=== PATIENT | female | born 1960 | race Caucasian/White ===

== ENCOUNTER 2016-07-06 17:08 | Emergency (ER) | payer BC ==
[2016-07-06] MEDS ORDERED: ONDANSETRON 4 MG TAB.RAPDIS PO ONE (17:12)
--- NOTE | 2016-07-06 17:14 | ER Document Report ---
ED Medical Screen (RME) - General Stated Complaint: ABDOMINAL PAIN Notes: Patient complains of abdominal pain for 3 days, more localized to the right lower quadrant today. States she has vomited about 8 times today, no diarrhea. Denies dysuria, unsure if she's had a fever or not. Denies sick contacts. I have greeted and performed a rapid initial assessment of this patient. A comprehensive ED assessment and evaluation of the patient, analysis of test results and completion of the medical decision making process will be conducted by additional ED providers. TRAVEL OUTSIDE OF THE [place] IN LAST 30 DAYS: No - Related Data Allergies/Adverse Reactions: Penicillins Allergy (Unknown, Verified 07/06/16 17:11) cephalexin monohydrate [From Keflex] Allergy (Verified 07/06/16 17:11) ciprofloxacin [From Cipro] Allergy (Verified 07/06/16 17:11) Iodinated Contrast Media - Oral and [IV Dye, Iodine Containing] Allergy ( Verified 07/06/16 17:11) latex [Latex] Allergy (Verified 07/06/16 17:11) metformin Allergy (Verified 07/06/16 17:11) nitrofurantoin macrocrystalline [From Macrodantin] Allergy (Verified 07/06/16 17 :11) penicillin G Allergy (Verified 07/06/16 17:11) Sulfa (Sulfonamide Antibiotics) Allergy (Verified 07/06/16 17:11) tetracycline [Tetracycline] Allergy (Verified 07/06/16 17:11) nitroglycerin [From Nitrostat] Adverse Reaction (Verified 07/06/16 17:11) Past Medical History - Past Medical History Cardiac Medical History: Reports: Hx Hypercholesterolemia, Hx Hypertension Denies: Hx Coronary Artery Disease, Hx DVT, Hx Pulmonary Embolism Pulmonary Medical History: Reports: Hx Asthma Neurological Medical History: Reports: Hx Cerebrovascular Accident, Hx Migraine Endocrine Medical History: Reports: Hx Diabetes Mellitus Type 1, Hx Diabetes Mellitus Type 2. Denies: Hx Hyperthyroidism, Hx Hypothyroidism GI Medical History: Reports: Hx Gastroesophageal Reflux Disease. Denies: Hx Cirrhosis, Hx Hepatitis Musculoskeltal Medical History: Reports Hx Arthritis Psychiatric Medical History: Reports: Hx Anxiety, Hx Depression Infectious Medical History: Denies: Hx Hepatitis Past Surgical History: Reports: Hx Abdominal Surgery - hernia, Hx Section, Hx Cholecystectomy, Hx Hysterectomy - partial, Hx Orthopedic Surgery - bilateral toes and elbows, Hx Tubal Ligation. Denies: Hx Appendectomy - Immunizations Immunizations up to date: Yes Hx Diphtheria, Pertussis, Tetanus Vaccination: Yes
[2016-07-06 17:46] LABS: ABSOLUTE EOSINOPHILS # (AUTO) 0.2 10^3/uL (0.0-0.6); ABSOLUTE MONOCYTES (AUTO) 0.7 10^3/uL (0.1-1.4); ABSOLUTE NEUT (AUTO) 4.2 10^3/uL (1.7-8.2); BASOPHILS % (AUTO) 0.6 % (0-2); EOSINOPHILS % (AUTO) 2.9 % (0-6); HEMATOCRIT 44.1 % (36.0-47.0); HEMOGLOBIN 14.9 g/dL (12.0-15.5); HGB HCT DIFFERENCE 0.6; LYMPHOCYTES % (AUTO) 27.5 % (13-45); MEAN CORPUSCULAR HEMOGLOBIN 27.5 pg (27.0-33.4); MEAN CORPUSCULAR HGB CONC 33.8 g/dL (32.0-36.0); MEAN CORPUSCULAR VOLUME 82 fl (80-97); MONOCYTES % (AUTO) 9.4 % (3-13); RED BLOOD COUNT 5.42 10^6/uL (3.72-5.28); RED CELL DISTRIBUTION WIDTH 13.6 % (11.5-14.0); SEGMENTED NEUTROPHILS % (AUTO) 59.6 % (42-78); WHITE BLOOD COUNT 7.1 10^3/uL (4.0-10.5)
[2016-07-06 17:51] LABS: APPEARANCE,URINE CLEAR; BILIRUBIN,URINE NEGATIVE (NEGATIVE); GLUCOSE, URINE >=500 mg/dL (NEGATIVE); KETONES,URINE TRACE mg/dL (NEGATIVE); LEUKOCYTE ESTERASE,URINE TRACE (NEGATIVE); NITRITE,URINE NEGATIVE (NEGATIVE); PROTEIN,URINE NEGATIVE (NEGATIVE); URINE SPECIFIC GRAVITY 1.026; UROBILINOGEN,URINE NEGATIVE mg/dL (<2.0)
--- NOTE | 2016-07-06 17:57 | ER Document Report ---
ED GI/ - General Chief Complaint: Abdominal Pain Stated Complaint: ABDOMINAL PAIN Time seen by provider: 17:55 Mode of Arrival: Ambulatory Information source: Patient Notes: This is a 56-year-old female with a history of pancreatitis, diabetes with neuropathy, gastroparesis, asthma. Patient presents to the emergency room with nausea, vomiting, abdominal pain. Patient denies fevers. Patient denies vaginal discharge. Patient denies vaginal bleeding. Past surgical history: Cholecystectomy, pancreatic pseudocyst removal, hernia repair. TRAVEL OUTSIDE OF THE [place] IN LAST 30 DAYS: No - HPI Patient complains to provider of: Abdominal pain, Vomiting Onset: Just prior to arrival Timing/Duration: Gradual Quality of pain: Dull Severity at maximum: Mild Severity in ED: Mild Pain Level: Denies Location: Epigastric Vaginal bleeding (Compared to normal period): None Sexual history: Inactive Associated symptoms: Nausea, Vomiting. denies: Chest pain, Chills Exacerbated by: Denies Relieved by: Denies Similar symptoms previously: Yes Recently seen / treated by doctor: No - Related Data Allergies/Adverse Reactions: Penicillins Allergy (Unknown, Verified 07/06/16 17:11) cephalexin monohydrate [From Keflex] Allergy (Verified 07/06/16 17:11) ciprofloxacin [From Cipro] Allergy (Verified 07/06/16 17:11) Iodinated Contrast Media - Oral and [IV Dye, Iodine Containing] Allergy ( Verified 07/06/16 17:11) latex [Latex] Allergy (Verified 07/06/16 17:11) metformin Allergy (Verified 07/06/16 17:11) nitrofurantoin macrocrystalline [From Macrodantin] Allergy (Verified 07/06/16 17 :11) penicillin G Allergy (Verified 07/06/16 17:11) Sulfa (Sulfonamide Antibiotics) Allergy (Verified 07/06/16 17:11) tetracycline [Tetracycline] Allergy (Verified 07/06/16 17:11) nitroglycerin [From Nitrostat] Adverse Reaction (Verified 07/06/16 17:11) Past Medical History - General Information source: Patient - Social History Smoking Status: Current Every Day Smoker Cigarette use (# per day): Yes Chew tobacco use (# tins/day): No Frequency of alcohol use: None Drug Abuse: None Lives with: Family Family History: Reviewed & Not Pertinent Patient has suicidal ideation: No Patient has homicidal ideation: No - Past Medical History Cardiac Medical History: Reports: Hx Hypercholesterolemia, Hx Hypertension Denies: Hx Coronary Artery Disease, Hx DVT, Hx Pulmonary Embolism Pulmonary Medical History: Reports: Hx Asthma Neurological Medical History: Reports: Hx Cerebrovascular Accident, Hx Migraine Endocrine Medical History: Reports: Hx Diabetes Mellitus Type 1, Hx Diabetes Mellitus Type 2. Denies: Hx Hyperthyroidism, Hx Hypothyroidism Renal/ Medical History: Denies: Hx Peritoneal Dialysis GI Medical History: Reports: Hx Gastroesophageal Reflux Disease. Denies: Hx Cirrhosis, Hx Hepatitis Musculoskeltal Medical History: Reports Hx Arthritis Psychiatric Medical History: Reports: Hx Anxiety, Hx Depression Infectious Medical History: Denies: Hx Hepatitis Past Surgical History: Reports: Hx Abdominal Surgery - hernia, Hx Section, Hx Cholecystectomy, Hx Hysterectomy - partial, Hx Orthopedic Surgery - bilateral toes and elbows, Hx Tubal Ligation. Denies: Hx Appendectomy - Immunizations Immunizations up to date: Yes Hx Diphtheria, Pertussis, Tetanus Vaccination: Yes Review of Systems - Review of Systems Notes: Review of systems: Constitutional: Denies fever, chills. EENT: Denies ear pain, sinus tenderness, throat pain, throat swelling. Cardiovascular: Denies chest pain, palpitations, dyspnea or edema. Respiratory: Denies wheezing, cough, hemoptysis. Abdomen: Positive for nausea, vomiting, abdominal pain. Denies BRBPR or melena. Genitourinary: Denies dysuria, pyuria, hematuria, flank pain. Musculoskeletal: denies joint pain or swelling, denies back pain. Neurologic: Denies headache, photophobia, neck stiffness, weakness. Denies loss of bowel or bladder function. Denies saddle anesthesia. Skin: Denies rash, lesions. Physical Exam - Vital signs Vitals: Temp Pulse Resp BP Pulse Ox 97.5 F 94 20 143/77 H 96 07/06/16 18:00 07/06/16 18:00 07/06/16 18:00 07/06/16 18:00 07/06/16 18:00 Notes: Physical exam: GENERAL: 56-year-old female, alert and oriented 3, no acute distress HEAD: Atraumatic, normocephalic. EYES: Pupils equal round and reactive to light, extraocular movements intact, sclera anicteric, conjunctiva are normal. ENT: TMs normal, nares patent, oropharynx clear without exudates. Moist mucous membranes. NECK: Normal range of motion, supple without lymphadenopathy or JVD. LUNGS: Breath sounds clear to auscultation bilaterally and equal. No wheezes rales or rhonchi. HEART: Regular rate and rhythm without murmurs, rubs or gallops. ABDOMEN: Soft, normoactive bowel sounds. Mild tenderness to palpation in the lower quadrants. No guarding, no rebound. No masses appreciated. EXTREMITIES: Normal range of motion, no pitting or edema. No clubbing or cyanosis. NEUROLOGICAL: Cranial nerves II through XII grossly intact. Normal speech, normal gait. PSYCH: Normal mood, normal affect. SKIN: Warm, Dry, normal turgor, no rashes or lesions noted. Course - Re-evaluation Re-evalutation: 07/07/16 00:18 Patient was treated with IV fluids, IV pain medicine, IV antiemetics. She is observed for several hours. CT of the abdomen shows no acute process. Patient was symptomatically better. I've advised her to follow-up with her primary care doctor for reassessment. Her sugar was initially elevated without a significant anion gap. The patient was treated with IV insulin as well as the IV fluids mentioned and the sugar improved. 07/07/16 00:18 - Vital Signs Vital signs: Temp Pulse Resp BP Pulse Ox 98.4 F 99 20 124/68 99 07/06/16 23:39 07/06/16 23:39 07/06/16 23:39 07/06/16 23:39 07/06/16 23:39 - Laboratory Result Diagrams: 07/06/16 17:26 07/06/16 17:26 Laboratory results interpreted by me: 07/06/16 07/06/16 07/06/16 17:26 17:26 17:26 RBC 5.42 H Sodium 135.5 L Chloride 94 L Glucose 509 H* POC Glucose Calcium 10.4 H Urine Glucose (UA) >=500 H Urine Ketones TRACE H Ur Leukocyte Esterase TRACE H 07/06/16 19:45 RBC Sodium Chloride Glucose POC Glucose 248 H Calcium Urine Glucose (UA) Urine Ketones Ur Leukocyte Esterase - Diagnostic Test Radiology reviewed: Image reviewed, Reports reviewed - CT of the abdomen shows no acute intra-abdominal process Discharge - Discharge Clinical Impression: diarrhea, abdominal pain Condition: Stable Disposition: HOME, SELF-CARE Instructions: Abdominal Pain ([facility]) Additional Instructions: Please note: Many disease processes evolve over time and the ER visit offers only a brief assessment. This is why it is important that you: 1. Follow-up with your doctor in the next 48 hours to be reevaluated. 2. If unable to see a physician in the next 48 hours, return to the ER for reevaluation. 3. Return to the ER at once if your symptoms worsen or you are unable to tolerate fluids, if the pain becomes localized to the right lower side of the abdomen, or any concerns you are getting worse. When you call your physician's office, tell them you were evaluated in the ER for abdominal pain and the ER physician recommended you seen in the office in the next 48 hours for reevaluation. Bring a copy of today's labs/urine analysis /imaging reports with you when you see your physician. If you are unable to get an appointment with your doctor in this time frame, return to the ER for evaluation. In the meantime, rest, drink plenty of fluids and advance her diet as tolerated. Take nausea medicines and pain medicines as needed. Prescriptions: Oxycodone HCl 5 mg PO Q6HP PRN #25 tablet PRN Reason: Ondansetron HCl [Zofran 4 mg Tablet] 1 - 2 tab PO Q4H PRN #10 tablet PRN Reason: Forms: Return to Work Referrals: GINETTE ENGLE MD [Primary Care Provider] - 07/08/16
[2016-07-06] MEDS ORDERED: ONDANSETRON HCL INJ/PF 4 MG/2 ML SDV IV ONE ×2 (18:02→21:42)
[2016-07-06] MEDS ORDERED: MORPHINE SULFATE 10 MG/ML INJ IV PRN ×3 (18:02→21:42)
[2016-07-06 18:06] LABS: ALANINE AMINOTRANSFERASE 33 U/L (9-52); ALBUMIN 4.9 g/dL (3.5-5.0); ALKALINE PHOSPHATASE 106 U/L (38-126); ANION GAP 13 (5-19); ASPARTATE AMINO TRANSFERASE 16 U/L (14-36); BILIRUBIN,TOTAL 0.9 mg/dL (0.2-1.3); BLOOD UREA NITROGEN 13 mg/dL (7-20); CALCIUM 10.4 mg/dL (8.4-10.2); CARBON DIOXIDE 29 mmol/L (22-30); CHLORIDE 94 mmol/L (98-107); CREATININE RESULT 0.59 mg/dL (0.52-1.25); POTASSIUM 4.2 mmol/L (3.6-5.0); SODIUM 135.5 mmol/L (137-145); TOTAL PROTEIN 7.4 g/dL (6.3-8.2)
[2016-07-06] MEDS: NORMAL SALINE 1000 ML 1,000 ML IV PRN ×2 (18:11→18:25)
[2016-07-06 18:14] LABS: GLUCOSE 509 mg/dL (75-110)
[2016-07-06] MEDS ORDERED: INSULIN REG, HUMAN 100 UNIT/ML 3 ML VIAL (PYX) IV ONE (18:16)
[2016-07-06] MEDS ORDERED: NORMAL SALINE 1000 ML 1,000 ML IV PRN (19:46)
[2016-07-06] MEDS ORDERED: ONDANSETRON ODT 4 MG TAB (6 TAB/DSPK) PO PRN (23:43)
[2016-07-06] MEDS ORDERED: HYDROCODONE/ACETAMINOPHEN 5-325 MG 6 TAB/DSPK PO PRN (23:44)
[2016-07-06 23:54] VITALS: BP 124/68
== END 2016-07-06 23:39 | disposition home or self-care (01) ==
LOC: ER 17:08
DX: E11.43 Type 2 diabetes mellitus with diabetic autonomic (poly)neuropathy (principal); K31.84 Gastroparesis; E11.40 Type 2 diabetes mellitus with diabetic neuropathy, unspecified; R10.13 Epigastric pain; R10.814 Left lower quadrant abdominal tenderness; R10.813 Right lower quadrant abdominal tenderness; R19.7 Diarrhea, unspecified; R11.2 Nausea with vomiting, unspecified; I10 Essential (primary) hypertension; J45.909 Unspecified asthma, uncomplicated; F17.210 Nicotine dependence, cigarettes, uncomplicated; Z90.49 Acquired absence of other specified parts of digestive tract; Z88.0 Allergy status to penicillin; Z88.1 Allergy status to other antibiotic agents; Z91.041 Radiographic dye allergy status; Z91.040 Latex allergy status; Z88.8 Allergy status to other drugs, medicaments and biological substances; Z88.2 Allergy status to sulfonamides; Z86.73 Personal history of transient ischemic attack (TIA), and cerebral infarction without residual deficits; Z87.19 Personal history of other diseases of the digestive system; Z90.711 Acquired absence of uterus with remaining cervical stump
CPT/HCPCS: 96376; 99284; 96361; 96374; 96375; 36415; 82962; 83690; 85025; 80053; 81001; 74176; S0119; J2270; J1815; J2405; J7030

== ENCOUNTER 2016-08-31 15:19 | Emergency (ER) | payer BC ==
[2016-08-31 15:50] VITALS: BP 140/98
--- NOTE | 2016-08-31 16:11 | ER Document Report ---
ED Extremity Problem, Lower - General Chief Complaint: Knee Pain Stated Complaint: LEG PAIN Time seen by provider: 16:06 Mode of Arrival: Medic Information source: Patient Notes: 56-year-old female presents to ED for pain to her right knee and miguel and foot after falling downstairs for stairs hitting her miguel and knee on each step. She has an abrasion from her knee down to her foot with swelling to all. He was brought in by EMS and was given 50 g of fentanyl IV. TRAVEL OUTSIDE OF THE [place] IN LAST 30 DAYS: No - HPI Patient complains to provider of: Injury, Pain, Swelling Location: Knee, Leg Occurred: This afternoon Where: Outdoors Onset/Duration: Sudden, Constant Quality of pain: Burning, Sharp Severity: Severe Pain Level: 5 Context: Fell Recent injury: Yes Associated symptoms: Painful ambulation Exacerbated by: Hanging down, Movement, Walking Relieved by: Elevation, Ice, Rest - Related Data Allergies/Adverse Reactions: Penicillins Allergy (Unknown, Verified 08/31/16 15:46) cephalexin monohydrate [From Keflex] Allergy (Verified 08/31/16 15:46) ciprofloxacin [From Cipro] Allergy (Verified 08/31/16 15:46) Iodinated Contrast Media - Oral and [IV Dye, Iodine Containing] Allergy ( Verified 08/31/16 15:46) latex [Latex] Allergy (Verified 08/31/16 15:46) metformin Allergy (Verified 08/31/16 15:46) nitrofurantoin macrocrystalline [From Macrodantin] Allergy (Verified 08/31/16 15 :46) penicillin G Allergy (Verified 08/31/16 15:46) Sulfa (Sulfonamide Antibiotics) Allergy (Verified 08/31/16 15:46) tetracycline [Tetracycline] Allergy (Verified 08/31/16 15:46) nitroglycerin [From Nitrostat] Adverse Reaction (Verified 08/31/16 15:46) Past Medical History - General Information source: Patient - Social History Smoking Status: Former Smoker Cigarette use (# per day): No Chew tobacco use (# tins/day): No Smoking Education Provided: No Frequency of alcohol use: None Drug Abuse: None Occupation: [employer] Lives with: Family Family History: Arthritis, CVA, DM, Hyperlipidemia, Hypertension, Malignancy, Thyroid Disfunction Patient has suicidal ideation: No Patient has homicidal ideation: No - Past Medical History Cardiac Medical History: Reports: Hx Hypercholesterolemia, Hx Hypertension Pulmonary Medical History: Reports: Hx Asthma EENT Medical History: Reports: None Neurological Medical History: Reports: Hx Cerebrovascular Accident, Hx Migraine Endocrine Medical History: Reports: Hx Diabetes Mellitus Type 1 Malignancy Medical History: Reports: Hx Cervical Cancer GI Medical History: Reports: Hx Gastroesophageal Reflux Disease Musculoskeltal Medical History: Reports Hx Arthritis, Reports Hx Musculoskeletal Deformity, Reports Hx Musculoskeletal Trauma Skin Medical History: Reports None Psychiatric Medical History: Reports: Hx Anxiety, Hx Depression Traumatic Medical History: Reports: Hx Fractures - Facial fractures Infectious Medical History: Reports: None Past Surgical History: Reports: Hx Abdominal Surgery - hernia, Hx Section - 2, Hx Cholecystectomy, Hx Hysterectomy - partial, Hx Orthopedic Surgery - bilateral toes and elbows left knee twice, Hx Tubal Ligation, Other - Ventral hernia and pseudocyst removal - Immunizations Immunizations up to date: Yes Hx Diphtheria, Pertussis, Tetanus Vaccination: Yes Review of Systems - Review of Systems Constitutional: No symptoms reported EENT: No symptoms reported Cardiovascular: No symptoms reported Respiratory: No symptoms reported Gastrointestinal: No symptoms reported Genitourinary: No symptoms reported Female Genitourinary: No symptoms reported Musculoskeletal: Other - Knee ankle and foot pain lower leg pain Skin: Other - Abrasions from right knee down to her right toes Hematologic/Lymphatic: No symptoms reported Neurological/Psychological: No symptoms reported Physical Exam - Vital signs Vitals: Temp Pulse Resp BP Pulse Ox 98.3 F 82 16 140/98 H 97 08/31/16 15:41 08/31/16 15:41 08/31/16 15:41 08/31/16 15:41 08/31/16 15:41 Interpretation: Normal - General General appearance: Appears well, Alert - HEENT Head: Normocephalic, Atraumatic Eyes: Normal Pupils: PERRL - Respiratory Respiratory status: No respiratory distress Chest status: Nontender Breath sounds: Normal Chest palpation: Normal - Cardiovascular Rhythm: Regular Heart sounds: Normal auscultation Murmur: No - Abdominal Inspection: Normal Distension: No distension Bowel sounds: Normal Tenderness: Nontender Organomegaly: No organomegaly - Back Back: Normal, Nontender - Extremities General upper extremity: Normal inspection, Nontender, Normal color, Normal ROM , Normal temperature General lower extremity: Normal temperature Knee: Tender, Abrasion, Ecchymosis, Pain with ROM, Patellar tendon intact, Tender joint line, Unable to bear weight. No: Deformity, Dislocation, Drawer's test instability, Instability, Joint effusion, Laceration, Laxity with valgus stress, Laxity with varus stress, Popliteal fossa tender Calf: Tender - Front, Abrasion - Front, Ecchymosis. No: Instability, Laceration , Unable to bear weight, Other Ankle: Tender, Abrasion Foot: Tender, Abrasion - Neurological Neuro grossly intact: Yes Cognition: Normal Orientation: AAOx4 [place] Coma Scale Eye Opening: Spontaneous [place] Coma Scale Verbal: Oriented [place] Coma Scale Motor: Obeys Commands [place] Coma Scale Total: 15 Speech: Normal Motor strength normal: LUE, RUE, LLE, RLE Sensory: Normal - Psychological Associated symptoms: Normal affect, Normal mood - Skin Skin Temperature: Warm Skin Moisture: Dry Skin Color: Normal Course - Re-evaluation Re-evalutation: 08/31/16 17:00 Discussed x-rays with patient and family. All dressings cleaned and bacitracin applied Telfa pads applied and ankle leg and knee wrapped in Victor Manuel wrap for support. Patient given crutches for walking. Patient sent home with prescription for Percocet - Vital Signs Vital signs: Temp Pulse Resp BP Pulse Ox 98.3 F 82 16 140/98 H 97 08/31/16 16:35 08/31/16 16:35 08/31/16 16:35 08/31/16 16:35 08/31/16 16:35 - Diagnostic Test Radiology reviewed: Image reviewed, Reports reviewed Discharge - Discharge Clinical Impression: contusion to left leg, knee, and foot, abrasion left foot ankle leg and knee Condition: Stable Disposition: HOME, SELF-CARE Instructions: Family Physicians / Practices Additional Instructions: CONTUSION: Your injury has resulted in a contusion -- a crushing of the deep tissues. No injury to important structures was detected during the physician's exam. Contusions vary in the amount of pain they cause, and in the length of time required for healing. Typically, the area will become bruised, and will remain painful to touch for two or three weeks. However, most patients are back to working and playing within a few days. After the initial period of rest and cold-packs, your symptoms (together with the doctor's recommendations) will determine how rapidly you can get back to full activity. Usually this means "do what feels okay, but don't do things that hurt." If re-examination was recommended, it's important to follow up as instructed. Call the doctor or return any time if pain increases, if swelling becomes severe, if you develop numbness or weakness in an injured extremity, or if any other alarming symptoms occur. ABRASIONS: An abrasion is a scraping injury of the skin. Some scarring may result. The seriousness of an abrasion is not always obvious at first. Hidden tissue damage may be present and infection may occur despite proper care. Complete healing may take from ten days to as long as a month. The healing time depends on the depth of the abrasion, and on the amount of crushing of underlying tissues from the injury. Keep the wound and dressing clean. Do not shower or bathe the area until okayed by the doctor. If the dressing gets wet, remove it and blot the wound dry, then reapply a clean dressing. Dressings should be changed every day. Sunscreen should be used for six months after the skin is healed. If any signs of infection occur (swelling, redness, increasing tenderness, red streaks, profuse purulent drainage from the abrasion, tender lumps in the armpit or groin above the abrasion, or fever), see the doctor immediately. SOAP CLEANSING: Gently wash the wound daily using a mild soap (like Ivory, Phisoderm, Neutrogena). Use warm water, rubbing gently until all debris, ooze, and crusting have been washed from the wound. Allow to dry briefly (about 10 minutes) after cleaning. Repeat this cleansing at least three times a day for the first two days and then once or twice a day. ANTIBIOTIC OINTMENT PROTECTION: Your wounds are such that dressing them is not practical or optional. After cleansing, you should apply a thin coating of antibiotic ointment ( Bacitracin, not Neosporin) to the wounds at least three times daily. This lessens infection risk, and may decrease the amount of scarring. Use a q-tip or dull butter knife, not your finger, to apply this ointment. Any debris or ooze which builds up in the ointment should be gently rubbed off with a sterile gauze pad. Harder crusting may need to be gently scrubbed off with a clean wash cloth with soap and warm water, perhaps applying a warm, wet wash cloth to the wound for ten minutes first. Development of redness, severe itching, or blistering may mean allergy to the ointment. See the doctor. ORAL NARCOTIC MEDICATION: You have been given a prescription for pain control. This medication is a narcotic. It's best taken with food, as nausea can result if taken on an empty stomach. Don't operate machinery or drive within six hours of taking this medication. Do not combine this medicine with alcohol, or with any medication which can cause sedation (such as cold tablets or sleeping pills) unless you get permission from the physician. Narcotics tend to cause constipation. If possible, drink plenty of fluids and eat a diet high in fiber and fruits. USE OF TYLENOL (ACETAMINOPHEN): Acetaminophen may be taken for pain relief or fever control. It's much safer than aspirin, offering a wider range of "safe" dosages. It is safe during . Some brand names are Tylenol, Panadol, Datril, Anacin 3, Tempra, and Liquiprin. Acetaminophen can be repeated every four hours. The following are maximum recommended dosages: WEIGHT Dose Drops Elixir Chewable( 80mg) (LBS.) drprs=droppers tsp=teaspoon 6 40 mg 0.4 ml (1/2) 6-11 80 mg 0.8 ml (full) tsp 1 tab 12-16 120 mg 1 1/2 drprs 3/4 tsp 1 1/2 tabs 17-23 160 mg 2 drprs 1 tsp 2 tabs 24-30 240 mg 3 drprs 1 1/2 tsp 3 tabs 30-35 320 mg 2 tsp 4 tabs 36-41 360 mg 2 1/4 tsp 4 1/2 tabs 42-47 400 mg 2 1/2 tsp 5 tabs 48-53 480 mg 3 tsp 6 tabs 54-59 520 mg 3 1/4 tsp 6 1/2 tabs 60-64 560 mg 3 1/2 tsp 7 tabs 65-70 600 mg 3 3/4 tsp 7 1/2 tabs 71-76 640 mg 4 tsp 8 tabs 77-82 720 mg 4 1/2 tsp 9 tabs 83-88 800 mg 5 tsp 10 tabs >89 pounds or adults 650 mg to 900 mg Acetaminophen can be repeated every four hours. Maximum dose not to exceed 4000 mg a day. These maximum recommended dosages are slightly higher than the dosages written on the product container, but these dosages are very safe and below the toxic dosage for acetaminophen. ICE PACKS: Apply ice packs frequently against the painful area. Many different schedules are recommended, such as "20 minutes on, 20 minutes off" or "one hour ice, two hours rest." If you need to work, you may need to go longer between ice treatments. You should plan to have the area ice packed AT LEAST one fourth of the time. The ice should be applied over the wrap, tape, or splint, or over a layer of cloth -- not directly against the skin. Some ice bags have a built-in cloth FOLLOW-UP CARE: If you have been referred to a physician for follow-up care, call the physician s office for an appointment as you were instructed or within the next two days. If you experience worsening or a significant change in your symptoms, notify the physician immediately or return to the Emergency Department at any time for re-evaluation. Prescriptions: Oxycodone HCl/Acetaminophen [Percocet 5-325 mg Tablet] 1 tab PO Q6HP PRN #15 tab PRN Reason: Forms: Elevated Blood Pressure, Return to Work
[2016-08-31] MEDS ORDERED: OXYCODONE-ACETAMINOPHEN 5-325 MG TABLET PO ONE (17:01)
== END 2016-08-31 17:40 | disposition home or self-care (01) ==
LOC: ER 15:19
DX: M25.561 Pain in right knee (principal); S80.01XA Contusion of right knee, initial encounter; S90.01XA Contusion of right ankle, initial encounter; S90.31XA Contusion of right foot, initial encounter; W10.9XXA Fall (on) (from) unspecified stairs and steps, initial encounter; M79.661 Pain in right lower leg; M79.671 Pain in right foot; I10 Essential (primary) hypertension; E10.9 Type 1 diabetes mellitus without complications; J45.909 Unspecified asthma, uncomplicated; Z88.0 Allergy status to penicillin; Z88.1 Allergy status to other antibiotic agents; Z91.041 Radiographic dye allergy status; Z91.040 Latex allergy status; Z88.8 Allergy status to other drugs, medicaments and biological substances; Z88.2 Allergy status to sulfonamides; Z87.891 Personal history of nicotine dependence; Z85.41 Personal history of malignant neoplasm of cervix uteri
CPT/HCPCS: 99284

== ENCOUNTER 2016-10-08 19:27 | Emergency (ER) | payer BC ==
[2016-10-08] MEDS ORDERED: ONDANSETRON HCL INJ/PF 4 MG/2 ML SDV IV ONE (21:18)
[2016-10-08] MEDS ORDERED: MORPHINE SULFATE 10 MG/ML INJ IV PRN ×2 (21:33→23:20)
[2016-10-08] MEDS ORDERED: NORMAL SALINE 1000 ML 1,000 ML IV ONE (21:33)
--- NOTE | 2016-10-08 22:12 | ER Document Report ---
ED General - General Chief Complaint: Nausea/Vomiting/Diarrhea Stated Complaint: VOMITING,DIARRHEA Time Seen by Provider: 10/08/16 21:30 Notes: Patient is a 56-year-old female with past medical history chronic recurrent pancreatitis, diabetes with insulin dependence, gastroparesis, a surgical history of a prior cholecystectomy, ventral hernia repair who presents with 24 hours of epigastric abdominal pain. She does describe this pain as a constant, stabbing, sharp pain. She is uncertain of what makes her symptoms better or worse. States this feels similar to what she's had pancreatitis in the past. Notes that she's had vomiting and had difficulty starting oral intake today. She has not seen her primary doctor regarding today's concerns. She denies abdominal location of the epigastrium, hemoptysis, melena or hematochezia. No chest pain or shortness of breath. TRAVEL OUTSIDE OF THE [place] IN LAST 30 DAYS: No - Related Data Allergies/Adverse Reactions: Penicillins Allergy (Unknown, Verified 08/31/16 15:46) cephalexin monohydrate [From Keflex] Allergy (Verified 08/31/16 15:46) ciprofloxacin [From Cipro] Allergy (Verified 08/31/16 15:46) Iodinated Contrast Media - Oral and [IV Dye, Iodine Containing] Allergy ( Verified 08/31/16 15:46) latex [Latex] Allergy (Verified 08/31/16 15:46) metformin Allergy (Verified 08/31/16 15:46) nitrofurantoin macrocrystalline [From Macrodantin] Allergy (Verified 08/31/16 15 :46) penicillin G Allergy (Verified 08/31/16 15:46) Sulfa (Sulfonamide Antibiotics) Allergy (Verified 08/31/16 15:46) tetracycline [Tetracycline] Allergy (Verified 08/31/16 15:46) nitroglycerin [From Nitrostat] Adverse Reaction (Verified 08/31/16 15:46) Past Medical History - General Information source: Patient - Social History Smoking Status: Never Smoker Frequency of alcohol use: None Drug Abuse: None Lives with: Family Family History: Arthritis, CVA, DM, Hyperlipidemia, Hypertension, Malignancy, Thyroid Disfunction - Past Medical History Cardiac Medical History: Reports: Hx Hypercholesterolemia, Hx Hypertension Pulmonary Medical History: Reports: Hx Asthma Neurological Medical History: Reports: Hx Cerebrovascular Accident, Hx Migraine Endocrine Medical History: Reports: Hx Diabetes Mellitus Type 1. Denies: Hx Hyperthyroidism, Hx Hypothyroidism Renal/ Medical History: Denies: Hx Peritoneal Dialysis Malignancy Medical History: Reports: Hx Cervical Cancer GI Medical History: Reports: Hx Gastroesophageal Reflux Disease. Denies: Hx Cirrhosis, Hx Hepatitis Musculoskeltal Medical History: Reports Hx Arthritis, Reports Hx Musculoskeletal Deformity, Reports Hx Musculoskeletal Trauma Psychiatric Medical History: Reports: Hx Anxiety, Hx Depression Traumatic Medical History: Reports: Hx Fractures - Facial fractures Infectious Medical History: Denies: Hx Hepatitis Past Surgical History: Reports: Hx Abdominal Surgery - hernia, Hx Section - 2, Hx Cholecystectomy, Hx Hysterectomy - partial, Hx Orthopedic Surgery - bilateral toes and elbows left knee twice, Hx Tubal Ligation, Other - Ventral hernia and pseudocyst removal. Denies: Hx Appendectomy - Immunizations Immunizations up to date: Yes Hx Diphtheria, Pertussis, Tetanus Vaccination: Yes Review of Systems - Review of Systems Notes: Constitutional: Negative for fever. HENT: Negative for sore throat. Eyes: Negative for visual changes. Cardiovascular: Negative for chest pain. Respiratory: Negative for shortness of breath. Gastrointestinal: Positive for abdominal pain and vomiting Genitourinary: Negative for dysuria. Musculoskeletal: Negative for back pain. Skin: Negative for rash. Neurological: Negative for headaches, weakness or numbness. 10 point ROS negative except as marked above and in HPI. Physical Exam - Vital signs Vitals: Temp Pulse Resp BP Pulse Ox 97.6 F 114 H 16 124/80 97 10/08/16 19:41 10/08/16 19:41 10/08/16 19:41 10/08/16 19:41 10/08/16 19:41 Interpretation: Tachycardic Notes: PHYSICAL EXAMINATION: GENERAL: Well-appearing, well-nourished and in no acute distress. HEAD: Atraumatic, normocephalic. EYES: Pupils equal round and reactive to light, extraocular movements intact, sclera anicteric, conjunctiva are normal. ENT: nares patent, oropharynx clear without exudates. Moist mucous membranes. NECK: Normal range of motion, supple without lymphadenopathy LUNGS: Breath sounds clear to auscultation bilaterally and equal. No wheezes rales or rhonchi. HEART: Regular rate and rhythm without murmurs ABDOMEN: Soft, focal epigastric tenderness to palpation, otherwise no focal tenderness, normoactive bowel sounds. No guarding, no rebound. No masses appreciated. EXTREMITIES: Normal range of motion, no pitting or edema. No cyanosis. NEUROLOGICAL: No focal neurological deficits. Moves all extremities spontaneously and on command. PSYCH: Normal mood, normal affect. SKIN: Warm, Dry, normal turgor, no rashes or lesions noted. Course - Re-evaluation Re-evalutation: 10/08/16 22:11 Patient presents with focal epigastric abdominal pain with associated nausea and vomiting consistent with a possible acute pancreatitis. Patient has a history of recurrent idiopathic pancreatitis. She does appear dehydrated on exam but otherwise nontoxic in appearance. Her vitals show tachycardia consistent with her persistent vomiting as well as pain. She has no focal tenderness outside of the epigastrium. She is already status post cholecystectomy. Of note, patient has had 4 CT scans of her abdomen and pelvis in the last one year all of which have shown pancreatic inflammation but no other additional findings. I do not believe there is no indication for CT the abdomen and pelvis at this time. Will proceed with labs, pain control and reassess 10/08/16 00:18 Labs without evidence of an acute pancreatitis. She is hyperglycemic without evidence of DKA or HHS. Symptoms are improving at this time after fluids, IV antiemetics and pain control. She has tolerated oral fluids without difficulty or further episodes of vomiting. Her blood sugar has improved after receiving insulin. At this time I believe it is safe for her to be discharged home and did not suspect an acute life-threatening pathology. At this time will discharge with return precautions and follow-up recommendations. Verbal discharge instructions given a the bedside and opportunity for questions given. Medication warnings reviewed. Patient is in agreement with this plan and has verbalized understanding of return precautions and the need for primary care follow-up in the next 24-72 hours. - Vital Signs Vital signs: Temp Pulse Resp BP Pulse Ox 97.6 F 114 H 16 124/80 97 10/08/16 19:41 10/08/16 19:41 10/08/16 19:41 10/08/16 19:41 10/08/16 19:41 - Laboratory Result Diagrams: 10/08/16 22:25 10/08/16 22:25 Laboratory results interpreted by me: 10/08/16 10/08/16 22:25 22:25 RBC 5.77 H Hgb 15.8 H Sodium 134.3 L Chloride 92 L Glucose 512 H* Discharge - Discharge Clinical Impression: Gastroparesis Abdominal pain Qualifiers: Abdominal location: unspecified location Qualified Code(s): R10.9 - Unspecified abdominal pain Nausea & vomiting Qualifiers: Vomiting type: unspecified Vomiting Intractability: non-intractable Qualified Code(s): R11.2 - Nausea with vomiting, unspecified Condition: Stable Disposition: HOME, SELF-CARE Additional Instructions: You have been seen in the Emergency Department (ED) for abdominal pain. Your evaluation did not identify a clear cause of your symptoms but was generally reassuring. Please follow up with your doctor as soon as possible regarding today's emergent visit and the symptoms that are bothering you. Return to the ED if your abdominal pain worsens or fails to improve, you develop bloody vomiting, bloody diarrhea, you are unable to tolerate fluids due to vomiting, fever greater than 101, or other symptoms that concern you. Prescriptions: Morphine Sulfate [Morphine Ir 15 mg Tablet] 15 mg PO Q4HP PRN #12 tablet PRN Reason: Ondansetron [Zofran Odt 4 mg Tablet] 1 - 2 tab PO Q4H PRN #15 tab.rapdis PRN Reason: For Nausea/Vomiting
[2016-10-08 22:36] LABS: ABSOLUTE EOSINOPHILS # (AUTO) 0.1 10^3/uL (0.0-0.6); ABSOLUTE LYMPHOCYTES (AUTO) 2.5 10^3/uL (0.5-4.7); ABSOLUTE MONOCYTES (AUTO) 0.7 10^3/uL (0.1-1.4); ABSOLUTE NEUT (AUTO) 4.5 10^3/uL (1.7-8.2); BASOPHILS % (AUTO) 0.6 % (0-2); EOSINOPHILS % (AUTO) 1.7 % (0-6); HEMATOCRIT 46.9 % (36.0-47.0); HEMOGLOBIN 15.8 g/dL (12.0-15.5); HGB HCT DIFFERENCE 0.5; MEAN CORPUSCULAR HEMOGLOBIN 27.3 pg (27.0-33.4); MEAN CORPUSCULAR HGB CONC 33.6 g/dL (32.0-36.0); MEAN CORPUSCULAR VOLUME 81 fl (80-97); RED BLOOD COUNT 5.77 10^6/uL (3.72-5.28); RED CELL DISTRIBUTION WIDTH 13.8 % (11.5-14.0); SEGMENTED NEUTROPHILS % (AUTO) 56.7 % (42-78); WHITE BLOOD COUNT 7.9 10^3/uL (4.0-10.5)
[2016-10-08 22:51] LABS: ALANINE AMINOTRANSFERASE 35 U/L (9-52); ALBUMIN 4.7 g/dL (3.5-5.0); ALKALINE PHOSPHATASE 96 U/L (38-126); ANION GAP 13 (5-19); ASPARTATE AMINO TRANSFERASE 17 U/L (14-36); BILIRUBIN,DIRECT 0.3 mg/dL (0.0-0.4); BILIRUBIN,TOTAL 0.7 mg/dL (0.2-1.3); BLOOD UREA NITROGEN 16 mg/dL (7-20); CALCIUM 10.2 mg/dL (8.4-10.2); CARBON DIOXIDE 29 mmol/L (22-30); CHLORIDE 92 mmol/L (98-107); CREATININE RESULT 0.61 mg/dL (0.52-1.25); LIPASE 123.9 U/L (23-300); POTASSIUM 4.6 mmol/L (3.6-5.0); SODIUM 134.3 mmol/L (137-145); TOTAL PROTEIN 7.5 g/dL (6.3-8.2)
[2016-10-08 22:59] LABS: GLUCOSE 512 mg/dL (75-110)
[2016-10-08] MEDS ORDERED: INSULIN REG, HUMAN 100 UNIT/ML 3 ML VIAL (PYX) IV ONE (23:17)
[2016-10-08] MEDS ORDERED: METOCLOPRAMIDE HCL INJ/PF 10 MG/2 ML SDV IV ONE (23:18)
[2016-10-08] MEDS ORDERED: KETOROLAC TROMETHAMINE INJ/PF 30 MG/1 ML SDV IV ONE (23:20)
[2016-10-08 23:26] LABS: VENOUS BLOOD BASE EXCESS 2.3 mmol/L; VENOUS BLOOD PCO2 52.7 mmHg (35-63); VENOUS BLOOD PH 7.36 (7.30-7.42)
[2016-10-09 05:40] VITALS: BP 115/55
== END 2016-10-09 05:32 | disposition home or self-care (01) ==
LOC: ER 19:27
DX: E10.43 Type 1 diabetes mellitus with diabetic autonomic (poly)neuropathy (principal); K31.84 Gastroparesis; Z79.4 Long term (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 of insulin; R11.2 Nausea with vomiting, unspecified; R10.13 Epigastric pain; E78.00 Pure hypercholesterolemia, unspecified; I10 Essential (primary) hypertension; Z86.73 Personal history of transient ischemic attack (TIA), and cerebral infarction without residual deficits; Z85.41 Personal history of malignant neoplasm of cervix uteri; Z90.49 Acquired absence of other specified parts of digestive tract; Z90.712 Acquired absence of cervix with remaining uterus; Z88.0 Allergy status to penicillin; Z88.3 Allergy status to other anti-infective agents; Z91.040 Latex allergy status; Z88.2 Allergy status to sulfonamides
CPT/HCPCS: 96376; 99284; 96361; 96374; 96375; 36415; 82962; 83690; 85025; 80053; 82803; J1885; J2765; J2270; J1815; J2405; J7030

== ENCOUNTER 2016-10-24 15:34 | Emergency (ER) | payer BC ==
[2016-10-24] MEDS ORDERED: HYDROCODONE/ACETAMINOPHEN 5-325 MG TABLET PO ONE (17:37)
--- NOTE | 2016-10-24 17:39 | ER Document Report ---
HPI - HPI Patient complains to provider of: fall Onset: This afternoon Onset/Duration: Sudden Quality of pain: Achy Pain Level: 5 Context: Pt states that the top part of her shoe caught on the pavement causing her to trip and stumble down 3 steps. Patient states that she ended up landing on her buttocks and low back area. Patient denies any head injury or loss of consciousness. Patient denies any nausea or vomiting. Patient denies any urinary retention or incontinence. Patient without any radiculopathy or paresthesia. Associated Symptoms: Other - low back, sacral pain. denies: Fever, Headache, Vomiting Exacerbated by: Movement Relieved by: Denies Similar symptoms previously: Yes - chronic back pain - ROS ROS below otherwise negative: Yes Systems Reviewed and Negative: Yes All other systems reviewed and negative - CONSTITUTIONAL Constitutional: DENIES: Fever - NEURO Neurology: DENIES: Headache, Weakness - CARDIOVASCULAR Cardiovascular: DENIES: Chest pain - RESPIRATORY Respiratory: DENIES: Trouble Breathing, Coughing - GASTROINTESTINAL Gastrointestinal: DENIES: Abdominal Pain, Nausea, Patient vomiting - URINARY Urinary: DENIES: Dysuria - REPRODUCTIVE Reproductive: DENIES: : - MUSCULOSKELETAL Musculoskeletal: REPORTS: Back Pain. 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 Denies: Hx Hyperthyroidism, Hx Hypothyroidism Renal/ Medical History: Denies: Hx Peritoneal Dialysis Malignancy Medical History: Reports: Hx Cervical Cancer GI Medical History: Reports: Hx Gastroesophageal Reflux Disease, Other - pancreatitis. Denies: Hx Cirrhosis, Hx Hepatitis Musculoskeltal Medical History: Reports Hx Arthritis, Reports Hx Musculoskeletal Deformity, Reports Hx Musculoskeletal Trauma Psychiatric Medical History: Reports: Hx Anxiety, Hx Depression Traumatic Medical History: Reports: Hx Fractures - Facial fractures Infectious Medical History: Denies: Hx Hepatitis Past Surgical History: Reports: Hx Abdominal Surgery - hernia, Hx Section - 2, Hx Cholecystectomy, Hx Hysterectomy - partial, Hx Orthopedic Surgery - bilateral toes and elbows left knee twice, Hx Tubal Ligation, Other - Ventral hernia and pseudocyst removal. Denies: Hx Appendectomy - Immunizations Immunizations up to date: Yes Hx Diphtheria, Pertussis, Tetanus Vaccination: Yes Vertical Provider Document - CONSTITUTIONAL Agree With Documented VS: Yes Exam Limitations: No Limitations General Appearance: WD/WN, No Apparent Distress - INFECTION CONTROL TRAVEL OUTSIDE OF THE [place] IN LAST 30 DAYS: No - HEENT HEENT: Atraumatic, Normal ENT Exam, Normocephalic - NECK Neck: Normal Inspection Notes: Left paraspinal cervical muscle tenderness, no midline tenderness, step-off or deformity - RESPIRATORY Respiratory: Breath Sounds Normal, No Respiratory Distress, Chest Non-Tender O2 Sat by Pulse Oximetry: 96 - CARDIOVASCULAR Cardiovascular: Regular Rate, Regular Rhythm, No Murmur - BACK Back: Abnormal Inspection - Thoracic paraspinal tenderness T7 through 9 area, lower lumbar tenderness, lumbar paraspinal tenderness, sacral tenderness, no ecchymosis or swelling, no step-off or deformity - MUSCULOSKELETAL/EXTREMETIES Musculoskeletal/Extremeties: MAEW, FROM, Non-Tender - NEURO Level of Consciousness: Awake, Alert, Appropriate Motor/Sensory: No Motor Deficit Notes: no saddle anesthesia, normal gait - DERM Integumentary: Warm, Dry, No Rash Course - Re-evaluation Re-evalutation: 10/24/16 19:00 The patient has been informed that they may have pre-hypertension or hypertension based on a blood pressure reading in the emergency department. I recommend that patient call the primary care provider listed on their discharge instructions or a physician of their choice by this week to arrange follow-up for further evaluation of possible pre-hypertension her hypertension. - Vital Signs Vital signs: Temp Pulse Resp BP Pulse Ox 97.3 F 81 16 168/84 H 96 10/24/16 15:44 10/24/16 15:44 10/24/16 15:44 10/24/16 15:44 10/24/16 15:44 - Diagnostic Test Radiology reviewed: Reports reviewed Discharge - Discharge Clinical Impression: Hx of essential hypertension Fall Qualifiers: Encounter type: initial encounter Qualified Code(s): W19.XXXA - Unspecified fall, initial encounter Low back pain Qualifiers: Chronicity: acute Back pain laterality: bilateral Sciatica presence: without sciatica Qualified Code(s): M54.5 - Low back pain Osteopenia Qualifiers: Osteopenia location: unspecified Qualified Code(s): M85.80 - Other specified disorders of bone density and structure, unspecified site Condition: Stable Disposition: HOME, SELF-CARE Additional Instructions: Return immediately for any new or worsening symptoms Followup with your primary care provider, Dr Wheatley, call tomorrow to make a followup appointment your xrays showed osteopenia, follow up with your primary care provider for further evaluation LOW BACK PAIN: Three out of every four people will have an episode of disabling back pain during their lifetime. Most commonly the pain is due to straining of the muscles and ligaments in the low back. Usual treatment includes: (1) Rest on a firm surface. Avoid lying on your stomach. (2) Ice pack the painful area. After a few days, gentle heat may be used intermittently to relax the area, or ice packs can be continued. (3) Medication may be needed -- muscle relaxers and antiinflammatory medicines are commonly used. (4) As the back improves, exercises are prescribed to strengthen the back and abdominal muscles. Your doctor will advise you on the proper care for your back at each stage in your recovery. You may be better in a few days -- or healing may take several weeks. If new symptoms of a "herniated disc" (radiation of pain, numbness, or tingling down the back of the leg or weakness in the leg) occur, you should be re-examined. Further testing may be necessary. ORAL NARCOTIC MEDICATION: You have been given a prescription for pain control. This medication is a narcotic. It's best taken with food, as nausea can result if taken on an empty stomach. Don't operate machinery or drive within six hours of taking this medication. Do not combine this medicine with alcohol, or with any medication which can cause sedation (such as cold tablets or sleeping pills) unless you get permission from the physician. Narcotics tend to cause constipation. If possible, drink plenty of fluids and eat a diet high in fiber and fruits. Please be aware that prescription narcotics also have the potential for abuse. People become addicted to these medications because of the general sense of wellbeing that they induce. This feeling along with a significant reduction in tension, anxiety, and aggression provides a stimulating seductive quality to these drugs. Once your pain is under control, we encourage you to discard your unused narcotics. ICE PACKS: Apply ice packs frequently against the painful area. Many different schedules are recommended, such as "20 minutes on, 20 minutes off" or "one hour ice, two hours rest." If you need to work, you may need to go longer between ice treatments. You should plan to have the area ice packed AT LEAST one fourth of the time. The ice should be applied over the wrap, tape, or splint, or over a layer of cloth -- not directly against the skin. Some ice bags have a built-in cloth and can be put directly on the skin. WARM PACKS: After approximately two days, apply gentle heat (such as a heating pad or hot water bottle) for about 20 to 30 minutes about every two hours -- at least four times daily. Warmth and elevation will help you make a more rapid recovery , and will ease the pain considerably. Do not use HOT heat, and never apply heat for longer than 30 minutes. The continuous heat can invisibly damage skin and muscles -- even when no burn is seen on the surface. Damaged muscles can make you MORE sore. FOLLOW-UP CARE: If you have been referred to a physician for follow-up care, call the physician s office for an appointment as you were instructed or within the next two days. If you experience worsening or a significant change in your symptoms, notify the physician immediately or return to the Emergency Department at any time for re-evaluation. Prescriptions: Hydrocodone/Acetaminophen [Stanley 5-325 Tablet] 1 each PO Q6 PRN #15 tablet PRN Reason: Forms: Elevated Blood Pressure, Return to Work
--- NOTE | 2016-10-24 18:34 | RADIOLOGY REPORT (SQ) ---
EXAM DESCRIPTION: SACRUM AND COCCYX COMPLETED DATE/TIME: 10/24/2016 6:14 pm REASON FOR STUDY: fall COMPARISON: None. NUMBER OF VIEWS: Three views. TECHNIQUE: AP, lateral, and tilt views of the sacrum and coccyx. LIMITATIONS: None. FINDINGS: MINERALIZATION: Osteopenia. BONES: No acute fracture or dislocation. No worrisome bone lesions. SOFT TISSUES: No soft tissue swelling. No foreign body. OTHER: No other significant finding. IMPRESSION: NEGATIVE STUDY OF THE SACRUM AND COCCYX. TECHNICAL DOCUMENTATION: JOB ID: [id number] [employer]- All Rights Reserved
--- NOTE | 2016-10-24 18:35 | RADIOLOGY REPORT (SQ) ---
EXAM DESCRIPTION: T SPINE AP/LAT COMPLETED DATE/TIME: 10/24/2016 6:14 pm REASON FOR STUDY: fall COMPARISON: None. NUMBER OF VIEWS: Two views. TECHNIQUE: AP and lateral radiographic images acquired of the thoracic spine. LIMITATIONS: None. FINDINGS: MINERALIZATION: Osteopenia. ALIGNMENT: Increased dorsal kyphosis. No significant compression changes seen, however. VERTEBRAE: No fracture or bone lesion. Maintained height, normal segmentation. DISCS: No significant loss of height or significant narrowing. No large osteophytes. HARDWARE: None in the spine. MEDIASTINUM AND SOFT TISSUES: Normal heart size and aortic contour. No soft tissue abnormality. VISUALIZED LUNG BOOTH: Clear. OTHER: No other significant finding. IMPRESSION: There is osteopenia with increased dorsal kyphosis but no significant compression change s are present. TECHNICAL DOCUMENTATION: JOB ID: [id number] [employer]- All Rights Reserved
--- NOTE | 2016-10-24 18:37 | RADIOLOGY REPORT (SQ) ---
EXAM DESCRIPTION: L SPINE WHOLE COMPLETED DATE/TIME: 10/24/2016 6:14 pm REASON FOR STUDY: fall COMPARISON: 11/25/2014 NUMBER OF VIEWS: Five views including obliques. TECHNIQUE: AP, lateral, oblique, and sacral radiographic images acquired of the lumbar spine. LIMITATIONS: None. FINDINGS: MINERALIZATION: Osteopenia. SEGMENTATION: Normal. No transitional anatomy. ALIGNMENT: Normal. VERTEBRAE: Maintained height. No fracture or worrisome bone lesion. DISCS: Preserved height. No significant osteophytes or end plate irregularity. POSTERIOR ELEMENTS: Pedicles and facets are intact. No pars defect or posterior arch defects. HARDWARE: None in the spine. PARASPINAL SOFT TISSUES: Normal. PELVIS: Intact as visualized. No fractures or worrisome bone lesions. SI joints intact. OTHER: No other significant finding. IMPRESSION: NORMAL 5 VIEW LUMBAR SPINE. TECHNICAL DOCUMENTATION: JOB ID: [id number] [employer]- All Rights Reserved
[2016-10-24 19:49] VITALS: BP 166/99
== END 2016-10-24 19:47 | disposition home or self-care (01) ==
LOC: ER 15:34
DX: M54.5 Low back pain (principal); W10.9XXA Fall (on) (from) unspecified stairs and steps, initial encounter; I10 Essential (primary) hypertension; M85.88 Other specified disorders of bone density and structure, other site; E10.9 Type 1 diabetes mellitus without complications; J45.909 Unspecified asthma, uncomplicated; Z86.73 Personal history of transient ischemic attack (TIA), and cerebral infarction without residual deficits; Z85.41 Personal history of malignant neoplasm of cervix uteri
CPT/HCPCS: 99283; 72220; 72110; 72070; L0120

== ENCOUNTER 2016-10-25 08:43 | Emergency (ER) | payer BC ==
[2016-10-25] MEDS ORDERED: KETOROLAC TROMETHAMINE 60 MG/2 ML SDV IM ONE (09:44)
--- NOTE | 2016-10-25 09:45 | ER Document Report ---
ED Medical Screen (RME) - General Chief Complaint: Back Pain Stated Complaint: BACK PAIN Time Seen by Provider: 10/25/16 09:43 Mode of Arrival: Ambulatory Information source: Patient TRAVEL OUTSIDE OF THE [place] IN LAST 30 DAYS: No - HPI Patient complains to provider of: Neck pain, labial swelling Onset: Yesterday Onset/Duration: Sudden Quality of pain: Achy Severity: Moderate Pain Level: 3 Exacerbated by: Movement Relieved by: Denies Similar symptoms previously: Yes Recently seen / treated by doctor: Yes Notes: 10/25/16 09:44 Patient is a 56-year-old female with a history of chronic low back pain, who reports she exacerbated her low back pain by a slip and fall yesterday, was seen in this emergency room yesterday evening and given hydrocortisone which she states is doing nothing to control her pain, she also noticed swelling to her labia from a possible abscess and would like this to be seen as well - Related Data Allergies/Adverse Reactions: Penicillins Allergy (Unknown, Verified 10/25/16 08:46) cephalexin monohydrate [From Keflex] Allergy (Verified 10/25/16 08:46) ciprofloxacin [From Cipro] Allergy (Verified 10/25/16 08:46) Iodinated Contrast Media - Oral and [IV Dye, Iodine Containing] Allergy ( Verified 10/25/16 08:46) latex [Latex] Allergy (Verified 10/25/16 08:46) metformin Allergy (Verified 10/25/16 08:46) nitrofurantoin macrocrystalline [From Macrodantin] Allergy (Verified 10/25/16 08 :46) penicillin G Allergy (Verified 10/25/16 08:46) Sulfa (Sulfonamide Antibiotics) Allergy (Verified 10/25/16 08:46) tetracycline [Tetracycline] Allergy (Verified 10/25/16 08:46) nitroglycerin [From Nitrostat] Adverse Reaction (Verified 10/25/16 08:46) Past Medical History - Past Medical History Cardiac Medical History: Reports: Hx Hypercholesterolemia, Hx Hypertension Pulmonary Medical History: Reports: Hx Asthma Neurological Medical History: Reports: Hx Cerebrovascular Accident, Hx Migraine Endocrine Medical History: Reports: Hx Diabetes Mellitus Type 1. Denies: Hx Hyperthyroidism, Hx Hypothyroidism. Comment Only: Hx Diabetes Mellitus Type 2 - gastroparesis Renal/ Medical History: Denies: Hx Peritoneal Dialysis Malignancy Medical History: Reports: Hx Cervical Cancer GI Medical History: Reports: Hx Gastroesophageal Reflux Disease. Denies: Hx Cirrhosis, Hx Hepatitis Musculoskeltal Medical History: Reports Hx Arthritis, Reports Hx Musculoskeletal Deformity, Reports Hx Musculoskeletal Trauma Psychiatric Medical History: Reports: Hx Anxiety, Hx Depression Traumatic Medical History: Reports: Hx Fractures - Facial fractures Infectious Medical History: Denies: Hx Hepatitis Past Surgical History: Reports: Hx Abdominal Surgery - hernia, Hx Section - 2, Hx Cholecystectomy, Hx Hysterectomy - partial, Hx Orthopedic Surgery - bilateral toes and elbows left knee twice, Hx Tubal Ligation, Other - Ventral hernia and pseudocyst removal. Denies: Hx Appendectomy - Immunizations Immunizations up to date: Yes Hx Diphtheria, Pertussis, Tetanus Vaccination: Yes Physical Exam - Vital signs Vitals: Temp Pulse Resp BP Pulse Ox 97.4 F 76 18 154/100 H 96 10/25/16 08:47 10/25/16 08:47 10/25/16 08:47 10/25/16 08:47 10/25/16 08:47 Course - Vital Signs Vital signs: Temp Pulse Resp BP Pulse Ox 97.4 F 76 18 154/100 H 96 10/25/16 08:47 10/25/16 08:47 10/25/16 08:47 10/25/16 08:47 10/25/16 08:47
--- NOTE | 2016-10-25 11:14 | ER Document Report ---
ED General Pain - General Mode of Arrival: Ambulatory Information source: Patient TRAVEL OUTSIDE OF THE [place] IN LAST 30 DAYS: No - HPI Patient complains to provider of: skin problem Onset: This morning Associated symptoms: Other - See above - General Chief Complaint: Skin Problem Stated Complaint: skin problem Time Seen by Provider: 10/25/16 09:43 Notes: Patient is a 56 year old female, with a past medical history including DM, who presents to the emergency department complaining of a skin problem in her pubic area. Patient states she noticed the area of swelling and pain this morning, denies any drainage from the site. Patient was seen here yesterday after a fall where she tripped and landed on her back exacerbating her chronic low back pain and was given hydrocortisone . Patient states she tried to get an appointment with her PCP but couldn't get one until . (CONSUELO BHATIA) - Related Data Allergies/Adverse Reactions: Penicillins Allergy (Unknown, Verified 10/25/16 08:46) cephalexin monohydrate [From Keflex] Allergy (Verified 10/25/16 08:46) ciprofloxacin [From Cipro] Allergy (Verified 10/25/16 08:46) Iodinated Contrast Media - Oral and [IV Dye, Iodine Containing] Allergy ( Verified 10/25/16 08:46) latex [Latex] Allergy (Verified 10/25/16 08:46) metformin Allergy (Verified 10/25/16 08:46) nitrofurantoin macrocrystalline [From Macrodantin] Allergy (Verified 10/25/16 08 :46) penicillin G Allergy (Verified 10/25/16 08:46) Sulfa (Sulfonamide Antibiotics) Allergy (Verified 10/25/16 08:46) tetracycline [Tetracycline] Allergy (Verified 10/25/16 08:46) nitroglycerin [From Nitrostat] Adverse Reaction (Verified 10/25/16 08:46) Past Medical History - General Information source: Patient - Social History Smoking Status: Former Smoker Chew tobacco use (# tins/day): No Frequency of alcohol use: None Drug Abuse: None Family History: Reviewed & Not Pertinent, Arthritis, CVA, DM, Hyperlipidemia, Hypertension, Malignancy, Thyroid Disfunction Patient has suicidal ideation: No Patient has homicidal ideation: No - Past Medical History Cardiac Medical History: Reports: Hx Hypercholesterolemia, Hx Hypertension Pulmonary Medical History: Reports: Hx Asthma Neurological Medical History: Reports: Hx Cerebrovascular Accident, Hx Migraine Endocrine Medical History: Reports: Hx Diabetes Mellitus Type 1Comment Only: Hx Diabetes Mellitus Type 2 - gastroparesis Malignancy Medical History: Reports: Hx Cervical Cancer GI Medical History: Reports: Hx Gastroesophageal Reflux Disease Musculoskeltal Medical History: Reports Hx Arthritis, Reports Hx Musculoskeletal Deformity, Reports Hx Musculoskeletal Trauma Psychiatric Medical History: Reports: Hx Anxiety, Hx Depression Traumatic Medical History: Reports: Hx Fractures - Facial fractures Past Surgical History: Reports: Hx Abdominal Surgery - hernia, Hx Section - 2, Hx Cholecystectomy, Hx Hysterectomy - partial, Hx Orthopedic Surgery - bilateral toes and elbows left knee twice, Hx Tubal Ligation, Other - Ventral hernia and pseudocyst removal - Immunizations Immunizations up to date: Yes Hx Diphtheria, Pertussis, Tetanus Vaccination: Yes Review of Systems - Review of Systems Constitutional: No symptoms reported EENT: No symptoms reported Cardiovascular: No symptoms reported Respiratory: No symptoms reported Gastrointestinal: No symptoms reported Genitourinary: No symptoms reported Female Genitourinary: No symptoms reported Musculoskeletal: See HPI, Back pain Skin: See HPI, Lumps Hematologic/Lymphatic: No symptoms reported Neurological/Psychological: No symptoms reported -: Yes All other systems reviewed and negative Physical Exam - Vital signs Interpretation: Normal - General General appearance: Appears well, Alert - HEENT Head: Normocephalic, Atraumatic - Respiratory Respiratory status: No respiratory distress - Genitourinary External exam: Other - blood blister like area in the mons pubis area that is indurated with swelling and tenderness. When the skin is stretch blister ruptered and released some dark blood, no pus. - Extremities General upper extremity: Normal inspection General lower extremity: Normal inspection - Neurological Neuro grossly intact: Yes Cognition: Normal Orientation: AAOx4 Naren Coma Scale Eye Opening: Spontaneous Naren Coma Scale Verbal: Oriented Naren Coma Scale Motor: Obeys Commands Naren Coma Scale Total: 15 Speech: Normal - Psychological Associated symptoms: Normal affect, Normal mood - Skin Skin Temperature: Warm Skin Moisture: Dry - Vital signs Vitals: Temp Pulse Resp BP Pulse Ox 97.4 F 76 18 154/100 H 96 10/25/16 08:47 10/25/16 08:47 10/25/16 08:47 10/25/16 08:47 10/25/16 08:47 Discharge - Discharge Clinical Impression: Folliculitis Additional Instructions: Folliculitis: You have a skin infection called folliculitis. This occurs when bacteria infect the hair follicles of the skin. Typically, redness and small pustules are found where hair shafts enter the skin. Allergy, surface irritation, shaving, and exposure to hot tubs predispose to folliculitis. The usual treatment is antibiotics. Warm compresses are often used. To avoid future episodes of folliculitis, you must identify (if possible) the factors which allowed this infection to start. If you develop increasing pain, swelling, fever, or red streaks, call the doctor or return for re-evaluation. TAKE THE MEDICATION PRESCRIBED. APPLY WARM SOAKS TO THE AREA SEVERAL TIMES DAILY. FOLLOW UP WITH YOUR DOCTOR IF NOT IMPROVING. RETURN TO THE EMERGENCY ROOM IF ANY NEW OR WORSENING SYMPTOMS. Prescriptions: Clindamycin HCl 150 mg PO QID #28 capsule Scribe Attestation: 10/25/16 11:22 I personally performed the services described in the documentation, reviewed and edited the documentation which was dictated to the scribe in my presence, and it accurately records my words and actions. (DEEPAK GARZA) Scribe Documentation - Scribe Written by Maurice:: maurice Curtis, 10/25/16, 1130 acting as scribe for :: Petar
[2016-10-25 11:40] LABS: APPEARANCE,URINE SLIGHTLY-CLOUDY; BILIRUBIN,URINE NEGATIVE (NEGATIVE); CALCIUM OXALATE CRYSTALS,URINE MANY /HPF; GLUCOSE, URINE >=500 mg/dL (NEGATIVE); KETONES,URINE NEGATIVE (NEGATIVE); LEUKOCYTE ESTERASE,URINE SMALL (NEGATIVE); NITRITE,URINE NEGATIVE (NEGATIVE); PROTEIN,URINE NEGATIVE (NEGATIVE); URINE SPECIFIC GRAVITY 1.032; UROBILINOGEN,URINE NEGATIVE mg/dL (<2.0)
[2016-10-25 12:15] VITALS: BP 170/80
== END 2016-10-25 12:10 | disposition home or self-care (01) ==
LOC: ER 08:43
DX: L73.9 Follicular disorder, unspecified (principal); E11.9 Type 2 diabetes mellitus without complications; Z87.891 Personal history of nicotine dependence
CPT/HCPCS: 99283; 96372; 87086; 87088; 81001; J1885

== ENCOUNTER 2016-10-28 20:44 | Observation (INO) | payer BC ==
--- NOTE | 2016-10-28 20:53 | ER Document Report ---
ED Cardiac - General Stated Complaint: CHEST PAIN Time Seen by Provider: 10/28/16 20:52 Mode of Arrival: Medic Information source: Patient Notes: 56 yo female exsmoker, hypertensive, insulin dependent diabetic, asthma, hyperlipedemic, normal weight female was laying in her bed tonight at 5-6 pm and got "palpitations lasting longer than usual", got lightheaded, short of breath,walked to living room took vitals, "pulse 199 and BP 130/98". She got scared and she told her to call EMS. Then started having chest pain prior to EMS arriving at the house. [place] like chest was collapsing in on her, harder and harder to catch her breath. 2 baby asa taken at home tongiht and EMS gave her 2 more. No cardiac hx, 2 c sections, CVA (HTN), btl, hysterectomy, orthopedic surger, cholecystectomy., hernia repair. PCP: [facility]. Recent low back pain, unsteady balance, dizzy spell, lightheaded, not hearing clearly in the past month, fell and was seen in the ER last fri or due to fall. Now has intermittent spinning sensation. Has not taken her nighttime dose of 12 units Novalog-calling her to bring her medicines from home. TRAVEL OUTSIDE OF THE [place] IN LAST 30 DAYS: No - Related Data Allergies/Adverse Reactions: Penicillins Allergy (Unknown, Verified 10/25/16 08:46) cephalexin monohydrate [From Keflex] Allergy (Verified 10/25/16 08:46) ciprofloxacin [From Cipro] Allergy (Verified 10/25/16 08:46) Iodinated Contrast Media - Oral and [IV Dye, Iodine Containing] Allergy ( Verified 10/25/16 08:46) latex [Latex] Allergy (Verified 10/25/16 08:46) metformin Allergy (Verified 10/25/16 08:46) nitrofurantoin macrocrystalline [From Macrodantin] Allergy (Verified 10/25/16 08 :46) penicillin G Allergy (Verified 10/25/16 08:46) Sulfa (Sulfonamide Antibiotics) Allergy (Verified 10/25/16 08:46) tetracycline [Tetracycline] Allergy (Verified 10/25/16 08:46) nitroglycerin [From Nitrostat] Adverse Reaction (Verified 10/25/16 08:46) Past Medical History - General Information source: Patient - Social History Smoking Status: Former Smoker Frequency of alcohol use: None Drug Abuse: None Lives with: Spouse/Significant other Family History: Reviewed & Not Pertinent, Arthritis, CVA, DM, Hyperlipidemia, Hypertension, Malignancy, Thyroid Disfunction - Past Medical History Cardiac Medical History: Reports: Hx Hypercholesterolemia, Hx Hypertension Pulmonary Medical History: Reports: Hx Asthma Neurological Medical History: Reports: Hx Cerebrovascular Accident, Hx Migraine Endocrine Medical History: Reports: Hx Diabetes Mellitus Type 1Comment Only: Hx Diabetes Mellitus Type 2 - gastroparesis Malignancy Medical History: Reports: Hx Cervical Cancer GI Medical History: Reports: Hx Gastroesophageal Reflux Disease Musculoskeltal Medical History: Reports Hx Arthritis, Reports Hx Musculoskeletal Deformity, Reports Hx Musculoskeletal Trauma Psychiatric Medical History: Reports: Hx Anxiety, Hx Depression Traumatic Medical History: Reports: Hx Fractures - Facial fractures Infectious Medical History: Denies: Hx Hepatitis Past Surgical History: Reports: Hx Abdominal Surgery - hernia, Hx Section - 2, Hx Cholecystectomy, Hx Hysterectomy - partial, Hx Orthopedic Surgery - bilateral toes and elbows left knee twice, Hx Tubal Ligation, Other - Ventral hernia and pseudocyst removal. Denies: Hx Appendectomy - Immunizations Immunizations up to date: Yes Hx Diphtheria, Pertussis, Tetanus Vaccination: Yes Review of Systems - Review of Systems Constitutional: No symptoms reported EENT: No symptoms reported Cardiovascular: See HPI Respiratory: See HPI Gastrointestinal: No symptoms reported Genitourinary: No symptoms reported Female Genitourinary: No symptoms reported Musculoskeletal: No symptoms reported Skin: No symptoms reported Hematologic/Lymphatic: No symptoms reported Neurological/Psychological: See HPI Physical Exam - Vital signs Vitals: Resp 14 10/28/16 20:51 Interpretation: Normal - General General appearance: Appears well, Alert In distress: None - HEENT Head: Normocephalic, Atraumatic Eyes: Normal Conjunctiva: Normal Extraocular movements intact: Yes Pupils: PERRL Nerve palsy: No Mucous membranes: Normal Neck: Supple. No: Lymphadenopathy - Respiratory Respiratory status: No respiratory distress Chest status: Nontender Breath sounds: Normal Chest palpation: Normal - Cardiovascular Rhythm: Regular Heart sounds: Normal auscultation Murmur: No - Abdominal Inspection: Normal Distension: No distension Bowel sounds: Normal Tenderness: Nontender Organomegaly: No organomegaly - Back Back: Normal, Nontender. No: Tender - Extremities General upper extremity: Normal inspection, Nontender, Normal color, Normal ROM , Normal temperature General lower extremity: Normal inspection, Nontender, Normal color, Normal ROM , Normal temperature, Normal weight bearing. No: Yoel's sign - Neurological Neuro grossly intact: Yes Cognition: Normal Orientation: AAOx4 Bannister Coma Scale Eye Opening: Spontaneous Bannister Coma Scale Verbal: Oriented Naren Coma Scale Motor: Obeys Commands Naren Coma Scale Total: 15 Speech: Normal Cranial nerves: No: Facial palsy, Gaze palsy, Sensory deficit, Tongue deviation Cerebellar coordination: Other - did not ambulate the pt. 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 10/28/16 21:[address] ferris for admission chest pain . called dr. vinson for admission and no answer. Pt is willing to be admitted. 10/28/16 22:14 dr. vinson will admit to telemetry observation, I informed the pt of this. - Vital Signs Vital signs: Temp Pulse Resp BP Pulse Ox 20 128/93 H 95 10/28/16 21:01 10/28/16 21:01 10/28/16 21:01 - Laboratory Result Diagrams: 10/28/16 20:55 10/28/16 20:55 Laboratory results interpreted by me: 10/28/16 10/28/16 20:55 20:55 RBC 5.33 H Glucose 270 H ALT 77 H
[2016-10-28 21:18] LABS: ABSOLUTE BASOPHILS # (AUTO) 0.1 10^3/uL (0.0-0.2); ABSOLUTE EOSINOPHILS # (AUTO) 0.1 10^3/uL (0.0-0.6); ABSOLUTE LYMPHOCYTES (AUTO) 2.7 10^3/uL (0.5-4.7); ABSOLUTE MONOCYTES (AUTO) 0.6 10^3/uL (0.1-1.4); ABSOLUTE NEUT (AUTO) 5.1 10^3/uL (1.7-8.2); BASOPHILS % (AUTO) 0.8 % (0-2); EOSINOPHILS % (AUTO) 1.4 % (0-6); HEMATOCRIT 43.5 % (36.0-47.0); HEMOGLOBIN 14.7 g/dL (12.0-15.5); HGB HCT DIFFERENCE 0.6; MEAN CORPUSCULAR HEMOGLOBIN 27.5 pg (27.0-33.4); MEAN CORPUSCULAR HGB CONC 33.7 g/dL (32.0-36.0); MEAN CORPUSCULAR VOLUME 82 fl (80-97); MONOCYTES % (AUTO) 7.5 % (3-13); RED BLOOD COUNT 5.33 10^6/uL (3.72-5.28); RED CELL DISTRIBUTION WIDTH 13.8 % (11.5-14.0); SEGMENTED NEUTROPHILS % (AUTO) 59.3 % (42-78); WHITE BLOOD COUNT 8.7 10^3/uL (4.0-10.5)
[2016-10-28 21:21] LABS: ALANINE AMINOTRANSFERASE 77 U/L (9-52); ALBUMIN 4.4 g/dL (3.5-5.0); ALKALINE PHOSPHATASE 109 U/L (38-126); ANION GAP 13 (5-19); ASPARTATE AMINO TRANSFERASE 24 U/L (14-36); BILIRUBIN,DIRECT 0.3 mg/dL (0.0-0.4); BILIRUBIN,TOTAL 0.6 mg/dL (0.2-1.3); BLOOD UREA NITROGEN 16 mg/dL (7-20); CALCIUM 9.8 mg/dL (8.4-10.2); CARBON DIOXIDE 26 mmol/L (22-30); CHLORIDE 99 mmol/L (98-107); CREATINE KINASE 44 U/L (30-135); CREATININE RESULT 0.52 mg/dL (0.52-1.25); GLUCOSE 270 mg/dL (75-110); POTASSIUM 4.4 mmol/L (3.6-5.0); SODIUM 138.4 mmol/L (137-145); TOTAL PROTEIN 7.2 g/dL (6.3-8.2)
[2016-10-28 21:40] LABS: CREATINE KINASE MB 1.02 ng/mL (<4.55); TROPONIN I < 0.012 ng/mL
--- NOTE | 2016-10-28 21:49 | RADIOLOGY REPORT (SQ) ---
EXAM DESCRIPTION: CHEST SINGLE VIEW COMPLETED DATE/TIME: 10/28/2016 9:25 pm REASON FOR STUDY: chest pain COMPARISON: 11/05/2015 EXAM PARAMETERS: NUMBER OF VIEWS: One view. TECHNIQUE: Single frontal radiographic view of the chest acquired. RADIATION DOSE: NA LIMITATIONS: None. FINDINGS: LUNGS AND PLEURA: No acute opacities, masses or pneumothorax. Similar left basilar scarri ng. No pleural effusion. MEDIASTINUM AND HILAR STRUCTURES: No masses. Contour normal. HEART AND VASCULAR STRUCTURES: Heart normal in size. Normal vasculature. BONES: No acute findings. HARDWARE: None in the chest. OTHER: No other significant finding. IMPRESSION: NO ACUTE RADIOGRAPHIC FINDING IN THE CHEST. TECHNICAL DOCUMENTATION: JOB ID: [id number]
[2016-10-28] MEDS ORDERED: LACTULOSE SYRUP 20 GM/30 ML UDCUP PO ONE (22:10)
[2016-10-28] MEDS ORDERED: ZOLPIDEM TARTRATE 5 MG TABLET PO PRN (22:11)
[2016-10-28] MEDS ORDERED: DEXTROSE 50%-WATER 25 GM/50 ML DISP.SYRIN IV PRN ×2 (22:12)
[2016-10-28] MEDS ORDERED: DEXTROSE 40% GEL 15 GM TUBE PO PRN ×2 (22:12)
[2016-10-28] MEDS ORDERED: GLUCAGON,HUMAN RECOMB 1 MG INJ IM PRN (22:12)
[2016-10-28] MEDS ORDERED: NITROGLYCERIN 0.4 MG/TAB 25 TAB/BOTTLE SL PRN (22:12)
[2016-10-28 22:35] LABS: APPEARANCE,URINE SLIGHTLY-CLOUDY; BILIRUBIN,URINE NEGATIVE (NEGATIVE); GLUCOSE, URINE >=500 mg/dL (NEGATIVE); KETONES,URINE NEGATIVE (NEGATIVE); LEUKOCYTE ESTERASE,URINE SMALL (NEGATIVE); NITRITE,URINE NEGATIVE (NEGATIVE); PROTEIN,URINE NEGATIVE (NEGATIVE); UROBILINOGEN,URINE NEGATIVE mg/dL (<2.0)
--- NOTE | 2016-10-28 22:52 | RADIOLOGY REPORT (SQ) ---
EXAM DESCRIPTION: CT HEAD WITHOUT COMPLETED DATE/TIME: 10/28/2016 10:22 pm REASON FOR STUDY: headache COMPARISON: 02/06/2015 TECHNIQUE: Axial images acquired through the brain without intravenous contrast. Images reviewed wi th bone, brain and subdural windows. Images stored on PACS. All CT scanners at this facility use dose modulation, iterative reconstruction, and/or weight based d osing when appropriate to reduce radiation dose to as low as reasonably achievable (ALARA). [facility]: Dose Right [facility]: CareDose [facility]: Dose Right [facility]: Teradose 4D [facility]: [place] Sounds RADIATION DOSE: 64.61 mGy. LIMITATIONS: None. FINDINGS: VENTRICLES: Normal size and contour. CEREBRUM: No masses. No hemorrhage. No midline shift. Stable appearance of the white matter. No e vidence for acute infarction. CEREBELLUM: No masses. No hemorrhage. No alteration of density. No evidence for acute infarction. EXTRAAXIAL SPACES: No fluid collections. No masses. ORBITS AND GLOBE: No intra- or extraconal masses. Normal contour of globe without masses. CALVARIUM: No fracture. PARANASAL SINUSES: No fluid or mucosal thickening. SOFT TISSUES: No mass or hematoma. OTHER: No other significant finding. IMPRESSION: No acute intracranial findings. TECHNICAL DOCUMENTATION: JOB ID: [id number] Quality ID # [id number]: Final reports with documentation of one or more dose reduction techniques (e.g., Au tomated exposure control, adjustment of the mA and/or kV according to patient size, use of iterative reconstruction technique) 2010 [employer]- All Rights Reserved
--- NOTE | 2016-10-29 01:13 | PDOC H&P ---
History of Present Illness Admission Date/PCP: 10/28/16 22:12 Patient complains of: Chest pain and palpitations History of Present Illness: ORLY OSEI is a 56 year old female with a past medical history of hypertension, TIA, gastroparesi, diabetes dyslipidemia, opiate dependent chronic pain, fibromyalgia, irritable bowel syndrome, anxiety and depression. Patient had been in her usual state of health until approximately 2 hours prior to presentation developing palpitations she checked her pulse with a monitor that read 199, she subsequently developed chest pain which was L, 3 out of 5 intensity left-sided and radiated to her left shoulder associated with breath, nausea without vomiting. Patient complains of excessive stress secondary to uncontrolled back pain resulting in unemployment. She denies previous episode of chest pain or cardiac stress test, she does admit to uncontrolled GERD, and constipation. Emergency room she has an unremarkable workup and is referred to the hospitalist for admission. Past Medical History Cardiac Medical History: Reports: Hyperlipidema, Hypertension Pulmonary Medical History: Reports: Asthma Neurological Medical History: Reports: Migraine Endocrine Medical History: Reports: Diabetes Mellitus Type 1 Denies: Hyperthyroidism, Hypothyroidism Comment Only: Diabetes Mellitus Type 2 - gastroparesis Malignancy Medical History: Reports: Cervical Cancer GI Medical History: Reports: Gastroesophageal Reflux Disease, Other - Irritable bowel syndrome, gastroparesis Denies: Cirrhosis, Hepatitis Musculoskeltal Medical History: Reports: Arthritis, Fibromyalgia Psychiatric Medical History: Reports: Depression, General Anxiety Disorder Past Surgical History Past Surgical History: Reports: Section - 2, Cholecystectomy, Hysterectomy - partial, Orthopedic Surgery - bilateral toes and elbows left knee twice, Tubal Ligation, Other - Ventral hernia and pseudocyst removal Denies: Appendectomy Social History Information Source: Patient, [facility] Records Lives with: Spouse/Significant other Smoking Status: Former Smoker Frequency of Alcohol Use: None Hx Recreational Drug Use: No Drugs: None Hx Prescription Drug Abuse: No - Advance Directive Resuscitation Status: Full Code Family History Family History: Reviewed & Not Pertinent, Arthritis, CVA, DM, Hyperlipidemia, Hypertension, Malignancy, Thyroid Disfunction Parental Family History Reviewed: Yes Children Family History Reviewed: Yes Sibling(s) Family History Reviewed.: Yes Medication/Allergy Home Medications: Atorvastatin Calcium [Lipitor 20 mg Tablet] 20 mg PO DAILY 02/10/16 Dexlansoprazole [Dexilant 60 mg Capsule] 60 mg PO DAILY 02/10/16 Duloxetine HCl [Cymbalta] 60 mg PO DAILY 02/10/16 Linaclotide [Linzess] 290 mcg PO DAILY 02/10/16 Lorazepam [Ativan 0.5 mg Tablet] 0.5 mg PO DAILY 02/10/16 Losartan/Hydrochlorothiazide [Hyzaar 100-25 Tablet] each PO 02/10/16 Zolpidem Tartrate [Ambien 5 mg Tablet] 5 mg PO HSP PRN 02/10/16 Insulin Glargine,Hum.rec.anlog [Nia Shavonrekha] 10 unit SQ QAM #0 02/13/16 Insulin Lispro [Humalog Insulin (Lispro) 100 unit/mL] 0 - 12 unit SUBCUT Q6HP PRN #1 unit 02/13/16 Ondansetron HCl [Zofran 4 mg Tablet] 1 - 2 tab PO Q4H PRN #10 tablet 07/06/16 Oxycodone HCl 5 mg PO Q6HP PRN #25 tablet 07/06/16 Oxycodone HCl/Acetaminophen [Percocet 5-325 mg Tablet] 1 tab PO Q6HP PRN #15 tab 08/31/16 Morphine Sulfate [Morphine Ir 15 mg Tablet] 15 mg PO Q4HP PRN #12 tablet Ondansetron [Zofran Odt 4 mg Tablet] 1 - 2 tab PO Q4H PRN #15 tab.rapdis Hydrocodone/Acetaminophen [[place] 5-325 Tablet] 1 each PO Q6 PRN #15 tablet 10/24 Clindamycin HCl 150 mg PO QID #28 capsule 10/25/16 Allergies/Adverse Reactions: Penicillins Allergy (Unknown, Verified 10/25/16 08:46) cephalexin monohydrate [From Keflex] Allergy (Verified 10/25/16 08:46) ciprofloxacin [From Cipro] Allergy (Verified 10/25/16 08:46) Iodinated Contrast Media - Oral and [IV Dye, Iodine Containing] Allergy ( Verified 10/25/16 08:46) latex [Latex] Allergy (Verified 10/25/16 08:46) metformin Allergy (Verified 10/25/16 08:46) nitrofurantoin macrocrystalline [From Macrodantin] Allergy (Verified 10/25/16 08 :46) penicillin G Allergy (Verified 10/25/16 08:46) Sulfa (Sulfonamide Antibiotics) Allergy (Verified 10/25/16 08:46) tetracycline [Tetracycline] Allergy (Verified 10/25/16 08:46) nitroglycerin [From Nitrostat] Adverse Reaction (Verified 10/25/16 08:46) Review of Systems Constitutional: ABSENT: chills, fever(s), headache(s), weight gain, weight loss Eyes: ABSENT: visual disturbances Ears: ABSENT: hearing changes Cardiovascular: ABSENT: chest pain, dyspnea on exertion, edema, orthropnea, palpitations Respiratory: ABSENT: cough, hemoptysis Gastrointestinal: ABSENT: abdominal pain, constipation, diarrhea, hematemesis, hematochezia, nausea, vomiting Genitourinary: ABSENT: dysuria, hematuria Musculoskeletal: ABSENT: joint swelling Integumentary: ABSENT: rash, wounds Neurological: ABSENT: abnormal gait, abnormal speech, confusion, dizziness, focal weakness, syncope Psychiatric: ABSENT: anxiety, depression, homidical ideation, suicidal ideation Endocrine: ABSENT: cold intolerance, heat intolerance, polydipsia, polyuria Hematologic/Lymphatic: ABSENT: easy bleeding, easy bruising Physical Exam Vital Signs: Temp Pulse Resp BP Pulse Ox 75 18 147/102 H 95 10/29/16 00:45 10/29/16 00:00 10/29/16 00:00 10/29/16 00:00 Intake & Output 10/27/16 10/28/16 10/29/16 11:59 11:59 11:59 Weight 74.389 kg General appearance: PRESENT: no acute distress, well-developed, well-nourished Head exam: PRESENT: atraumatic, normocephalic Eye exam: PRESENT: conjunctiva pink, EOMI, PERRLA. ABSENT: scleral icterus Ear exam: PRESENT: normal external ear exam Mouth exam: PRESENT: moist, tongue midline Neck exam: ABSENT: carotid bruit, JVD, lymphadenopathy, thyromegaly Respiratory exam: PRESENT: clear to auscultation gerardo. ABSENT: rales, rhonchi, wheezes Cardiovascular exam: PRESENT: RRR. ABSENT: diastolic murmur, rubs, systolic murmur Pulses: PRESENT: normal dorsalis pedis pul Vascular exam: PRESENT: normal capillary refill GI/Abdominal exam: PRESENT: normal bowel sounds, soft. ABSENT: distended, guarding, mass, organolmegaly, rebound, tenderness Rectal exam: PRESENT: deferred Extremities exam: PRESENT: full ROM. ABSENT: calf tenderness, clubbing, pedal edema Neurological exam: PRESENT: alert, awake, oriented to person, oriented to place , oriented to time, oriented to situation, CN II-XII grossly intact. ABSENT: motor sensory deficit Psychiatric exam: PRESENT: appropriate affect, normal mood. ABSENT: homicidal ideation, suicidal ideation Skin exam: PRESENT: dry, intact, warm. ABSENT: cyanosis, rash Results Impressions: Chest X-Ray 10/28/16 21:09 IMPRESSION: NO ACUTE RADIOGRAPHIC FINDING IN THE CHEST. Head CT 10/28/16 21:48 IMPRESSION: No acute intracranial findings. Assessment & Plan - Diagnosis (1) Chest pain Qualifiers: Chest pain type: unspecified Qualified Code(s): R07.9 - Chest pain, unspecified Is this a current diagnosis for this admission?: YesPlan: The patient has atypical pain syndrome I am concerned for her multiple risk factors will obtain a Cardiolite stress test to evaluate risk factors for coronary artery disease (2) Heart palpitations Is this a current diagnosis for this admission?: YesPlan: Possibly secondary to SVT or atrial fibrillation and excessive caffeine consumption will monitor on telemetry (3) Constipation Is this a current diagnosis for this admission?: YesPlan: Opiate dependence complicated by constipation predominant irritable bowel syndrome. Mineral oil enema and lactulose as needed (4) Diabetes mellitus Qualifiers: Diabetes mellitus type: type 1 Diabetes mellitus complication status: without complication Qualified Code(s): E10.9 - Type 1 diabetes mellitus without complications Is this a current diagnosis for this admission?: YesPlan: Humalog sliding scale insulin protocol and evaluation of A1c (5) Depression with anxiety Is this a current diagnosis for this admission?: YesPlan: Patient is overtly anxious will evaluate TSH - Time Time Spent: 50 to 70 Minutes
[2016-10-29 03:33] LABS: CHOLESTEROL 171.87 mg/dL (0-200); CREATINE KINASE 41 U/L (30-135); Direct HDL 39 mg/dL (>40); TRIGLYCERIDES 203 mg/dL (<150)
[2016-10-29 03:46] LABS: DIRECT LDL 86 mg/dL (<100)
[2016-10-29 03:47] LABS: CREATINE KINASE MB 1.05 ng/mL (<4.55)
[2016-10-29 03:51] LABS: TROPONIN I < 0.012 ng/mL; VLDL CHOLESTEROL 40.6 mg/dL (10-31)
[2016-10-29] MEDS: HEPARIN SOD (PORCINE) 5,000 UNIT/ML 1 ML SYRINGE SUBCUT SCH ×2 (05:50→13:14)
[2016-10-29] MEDS: INSULIN LISPRO 100 UNIT/ML 3 ML VIAL SUBCUT PRN ×3 (09:14→16:10)
--- NOTE | 2016-10-29 09:59 | EKG REPORT ---
SEVERITY:- BORDERLINE ECG - SINUS RHYTHM BORDERLINE R WAVE PROGRESSION, ANTERIOR LEADS : Confirmed by: Jennifer Burgess 29-Oct-2016 09:59:45
[2016-10-29] MEDS ORDERED: HYDROCHLOROTHIAZIDE 25 MG TABLET PO SCH (10:00)
[2016-10-29] MEDS ORDERED: DULOXETINE HCL 30 MG CAPSULE.DR PO SCH (10:00)
[2016-10-29] MEDS ORDERED: DOCUSATE SODIUM 100 MG CAPSULE PO SCH (10:00)
[2016-10-29] MEDS ORDERED: LOSARTAN POTASSIUM 50 MG TABLET PO SCH (10:00)
[2016-10-29] MEDS ORDERED: ATORVASTATIN CALCIUM 20 MG TABLET PO SCH (10:00)
[2016-10-29] MEDS ORDERED: MORPHINE SULFATE IR 15 MG TABLET PO PRN (10:31)
[2016-10-29] MEDS ORDERED: ONDANSETRON 4 MG TAB.RAPDIS PO PRN (10:31)
[2016-10-29] MEDS ORDERED: (PENDING PHARMACY ID) (Bupropion Hcl [Wellbutrin Xl 150 Mg 24hr Tablet] 150 MG) PO SCH (10:45)
[2016-10-29] MEDS ORDERED: BUPROPION HCL 75 MG TABLET PO ONE (11:00)
[2016-10-29] MEDS ORDERED: INSULIN ASPART 12 UNIT SQ SCH (12:00)
[2016-10-29] MEDS: INSULIN LISPRO 100 UNIT/ML 3 ML VIAL SUBCUT SCH ×2 (12:17→16:55)
[2016-10-29] MEDS ORDERED: REGADENOSON INJ 0.4 MG/5 ML DISP.SYRIN IV ONE (13:48)
[2016-10-29 15:06] LABS: TROPONIN I < 0.012 ng/mL
[2016-10-29] MEDS ORDERED: INSULIN LISPRO 100 UNIT/ML 3 ML VIAL ONE (16:00)
--- NOTE | 2016-10-29 16:38 | Progress Note ---
Provider Note Provider Note: FARNAZ VILLALBA Search Criteria: Last Name 'Farnaz' and First Name 'Jackelyn' and = ' and Request Period = 05/02/16' to 10/29/16' - 5 out of 5 Recipients Selected. Fill Date Product, Str, Form Qty Days Pt ID Prescriber Written RX# N/R* Pharm MED+ ------ ---- --------- --- ------- ----- --------- ------ 10/09/2016 MORPHINE SULFATE IR 15 MG TAB 12.00 2 [id number] 10/08/2016 [id number] 90.0 09/21/2016 ZOLPIDEM TARTRATE 5 MG TABLET 30.00 30 [id number] 09/17/2016 [id number] N [id number] 00.0 08/31/2016 OXYCODONE-ACETAMINOPHEN 5-325 15.00 4 [id number] 08/31/2016 [id number] N [id number] 28.13 08/08/2016 ZOLPIDEM TARTRATE 5 MG TABLET 30.00 30 [id number] 06/04/2016 [id number] N [id number] 00.0 08/08/2016 LORAZEPAM 0.5 MG TABLET 30.00 30 [id number] 06/04/2016 [id number] N [id number] 00.0 [id number] RAMANDEEP RODRIGES; [facility], [address],[facility] [address] [id number] ALMA AMAYA MSN; [address] [address] [id number] GINETTE ENGLE MD; [facility] [address], [address],[place] [id number] VIJAY MCCOY; [facility], OGME/[id number], [address], [facility] [address] Pharmacies that dispensed prescriptions listed
[2016-10-29 16:58] VITALS: BP 143/89
[2016-10-29] MEDS ORDERED: ZOLPIDEM TARTRATE 5 MG TABLET PO SCH (22:00)
[2016-10-29] MEDS ORDERED: BUPROPION HCL 75 MG TABLET PO SCH (22:00)
--- NOTE | 2016-10-29 23:17 | DRAGON STRESS TEST REPORT ---
Intravenous Lexiscan Cardiolite stress test using single photon emmision computerized tomography. Date of procedure: 10/29/2016. Ordering Provider: Dr. Yovany Diaz. Patient's status: Inpatient. Indication: Chest pain. Coronary risk factors: Age, insulin requiring diabetes mellitus, hypertension, and dyslipidemia. Resting EKG: Sinus Rhythm. Poor R wave from V1 to V6 leads. Stress EKG: No changes of ischemia. The patient had no chest pain or discomfort, and there were no arrhythmias seen Reason for termination: Protocol. Conclusions: Normal EKG and hemodynamic response to IV Lexiscan. Nuclear data: At rest the patient was given 11.91 millicuries of technetium 99m sestamibi injected intravenously. As per protocol rest non gated SPECT images were obtained. Subsequently the patient was given intravenous Lexiscan at a dose of 0.4 mg in 5 mL intravenously, followed by flush with normal saline. Subsequently the stress dose of 35.4 millicuries of technetium 99m sestamibi was injected intravenously. As per protocol stress gated images were obtained. Nuclear interpretation: Review of images showed that all segments of the myocardium had normal perfusion at rest, and normal perfusion post stress with IV Lexiscan. All segments of the myocardium had normal motion, contraction, and thickening by gated study. T. I D. ratio was normal at 1.05. Computer read rest, and stress left ventricular ejection fraction were 65 %, and 58 %, respectively. Conclusion: 1. There is no scintigraphic evidence of Lexiscan induced myocardial ischemia. 2. There is no scintigraphic evidence of myocardial infarction/scar. Recommendations: Aggressive risk factor modification, and treating the underlying co- morbidities. MTDD
--- NOTE | 2016-10-30 09:01 | DISCHARGE SUMMARY E ---
Discharge Summary NAME: ORLY OSEI : 1960 AGE: 56Y ADMITTED: 10/28/2016 DISCHARGED: 10/29/2016 CODE STATUS: FULL CODE. PRIMARY CARE PROVIDER: Dr. Blakely DISCHARGE DIAGNOSES: Includes: 1. Anxiety. 2. Chronic pain. 3. Chest pain secondary to numbers 1 and 2. 4. Diabetes mellitus. 5. Hyperlipidemia. DISCHARGE MEDICATIONS: Include: 1. Lantus 30 units subcu q. hour of sleep. 2. Lipitor 20 mg p.o. daily. 3. Wellbutrin XL 150 mg p.o. daily. 4. Cymbalta 60 mg p.o. daily. 5. Novolog 12 units subcu with each meal. 6. Hyzaar 100/25 one tablet p.o. daily. 7. Morphine instant release 15 mg p.o. q. 4 hours p.r.n. 8. Zofran ODT 4 mg p.o. q. 4 hours p.r.n. 9. Ambien 5 mg p.o. q. hour of sleep. DIET: Heart healthy, diabetic as tolerated. ACTIVITY: As tolerated. HISTORY OF PRESENT ILLNESS: The patient is a 56-year-old female with a past medical history of chronic pain and anxiety. The patient presented to the emergency department with a chief complaint of chest pain and heart palpitations. The patient apparently had been in her usual state of health until approximately 2 hours prior to presentation when she developed palpitations. The patient checked her pulses with a monitor, but felt she was also having chest pain on the left side, which radiated into both shoulders associated with shortness of breath, nausea, and vomiting. Upon further history taking, the patient stated this had been going on for some time and the patient complained of having excessive stress secondary to uncontrolled back pain that had resulted in her missing over a week of work. The patient denied any previous episode other than the recent past. The patient denies ever having a cardiac stress test. The patient also admits to uncontrollable GERD as well as constipation. Upon presentation in the emergency department, the patient had an unremarkable set of cardiac enzymes, EKG, which revealed sinus rhythm, and the patient was referred to the hospitalist for admission and management. HOSPITAL COURSE: The patient was admitted to continuous telemetry unit. Serial cardiac enzymes were obtained, all of which were nonsuggestive. The patient had no EKG changes and no events on the exhibit cleaner. The patient underwent Cardiolite stress test and findings were not suggestive of any area of reversible ischemia and was revealed to be unremarkable. The patient attributes her symptoms to anxiety and stress, admits to a long history of anxiety with associated palpitations. The patient, although she is on numerous psychiatric medications, states she has never been seen nor evaluated by Psychiatry or Psychology and a referral has been made for such. The patient is agreeable to follow up with primary care and is ready for discharge. DIAGNOSTICS: Lab values are as follows: Hematology obtained on 10/28/2016: WBCs are 8.7, hemoglobin is 14.7, hematocrit is 43.5, platelet count is 223,000. Chemistry obtained on 10/29/2016: Sodium is 138, potassium 4.4, chloride is 99, carbon dioxide 99, BUN 16, creatinine is 0.52, glucose 270. A1C is 11.7, calcium is 9.8, bilirubin is 0.6. AST 24, ALT is 77, Alk phos 109. CK 44, CK-MB is 1.05. Troponin is 0.012. Total protein 7.2, albumin 4.4, TSH . Triglycerides are 203, cholesterol is 171, LDL is 86, VLDL is 40, HDL is 39. Urinalysis obtained on 10/28/2016: Color yellow, appearance slightly cloudy. PH is 5.0, specific gravity is 1.030. Protein negative, glucose greater than 500. Ketones negative, occult blood negative, nitrite negative, bilirubin negative, urobilinogen is negative. Leukocyte esterase is small. WBCs 14, RBCs 1, bacteria trace, epithelial squamous cells 3, mucus is negative. Microbiology: Urine culture obtained on 10/28/2016 revealed no growth. Chest x-ray obtained on 10/28/2016 reveals no acute radiographic finding of the chest. Head CT obtained on 10/28/2016 reveals no acute intracranial findings. PHYSICAL EXAMINATION: GENERAL: The patient is a well-developed, well-nourished 56-year-old female who is awake, alert. She is oriented to person, place, time, and situation. She is verbal, conversational, and does not appear to be in any acute distress. VITAL SIGNS: Temperature is 97.6, pulse 88, respirations 15, blood pressure is 143/89, oxygen saturation 97% on room air. SKIN: Warm and dry. No rash. Not diaphoretic. HEENT: Pupils equal, round, and reactive to light and accommodation. Conjunctiva is pink. There is no JVP. CARDIOVASCULAR SYSTEM: Heart is regular rhythm. EXTREMITIES: No edema. PSYCHIATRIC: Odd affect. NEUROLOGIC: Grossly intact. DISCHARGE PLANNIN. The patient is advised to follow up with a primary care provider within 1 week for hospital followup. 2. The patient will be referred to [facility] to establish psychiatric care. Time spent on this discharge including assessment, plan, physical examination, patient education, specialty collaboration is 25 minutes. DICTATING PHYSICIAN: KATERYNA FLANAGAN NP [id number] PHY#: [id number] ID: [id number] JOB#: [id number] ACCT: [id number] cc:NANCY ELLIS M.D. > MTDD
[2016-10-30] MEDS ORDERED: (PENDING PHARMACY ID) (Losartan/Hydrochlorothiazide [Hyzaar 100-25 Tablet] 1 TAB) PO SCH (10:00)
[2016-10-30] MEDS ORDERED: ATORVASTATIN CALCIUM 20 MG TABLET PO SCH (10:00)
== END 2016-10-29 17:30 | disposition home or self-care (01) ==
LOC: ER 20:44 → EH 22:12 → UNDOADMOB 22:31 → EH 22:31 → 5 10-29 00:25
PROVIDERS: ADMIT Internal Medicine; ATTEND Internal Medicine
DX: F41.8 Other specified anxiety disorders (principal); G89.29 Other chronic pain; R07.89 Other chest pain; E10.43 Type 1 diabetes mellitus with diabetic autonomic (poly)neuropathy; K31.84 Gastroparesis; Z79.4 Long term (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 of insulin; E78.5 Hyperlipidemia, unspecified; M54.5 Low back pain; K21.9 Gastro-esophageal reflux disease without esophagitis; K59.00 Constipation, unspecified; K58.9 Irritable bowel syndrome, unspecified; Z73.3 Stress, not elsewhere classified; F11.20 Opioid dependence, uncomplicated; M79.7 Fibromyalgia; M19.90 Unspecified osteoarthritis, unspecified site; Z85.41 Personal history of malignant neoplasm of cervix uteri; Z90.49 Acquired absence of other specified parts of digestive tract; Z90.710 Acquired absence of both cervix and uterus; Z98.51 Tubal ligation status; Z87.891 Personal history of nicotine dependence; Z82.49 Family history of ischemic heart disease and other diseases of the circulatory system; Z79.899 Other long term (current) drug therapy; Z86.73 Personal history of transient ischemic attack (TIA), and cerebral infarction without residual deficits; Z87.09 Personal history of other diseases of the respiratory system
CPT/HCPCS: 93005; 99285; 36415 ×2; 87086; 82553 ×2; 82962; 82550 ×2; 84443; 85025; 80053; 81001; 84484 ×2; 83036; 80061; 93017; 71010; 78452; 70450; 93010; G0378 ×4; A9500; J2785; J1644; J1815; J3490; Q9969

== ENCOUNTER 2016-12-05 18:26 | Emergency (ER) | payer BC ==
[2016-12-05] MEDS ORDERED: NORMAL SALINE 1000 ML 1,000 ML IV ONE ×2 (18:41→20:10)
[2016-12-05] MEDS ORDERED: ACETAMINOPHEN 325 MG TABLET PO ONE (18:42)
--- NOTE | 2016-12-05 18:44 | ER Document Report ---
ED Medical Screen (RME) - General Chief Complaint: High Blood Sugar Stated Complaint: HEADACHE Time Seen by Provider: 12/05/16 18:37 Mode of Arrival: Medic Information source: Patient Notes: Patient is a 56-year-old diabetic patient who presents to the ER via EMS today because she checked her blood sugar prior to eating dinner and it read "high" making her scared to then give herself any insulin, eat dinner, etc. so she called 911. Patient has not had insulin tonight. She takes NovoLog at dinnertime and Lantus at bedtime. She denies any nausea, vomiting. She only complains of a headache because it is "hot outside" and states that it only started after she went outside with EMS. TRAVEL OUTSIDE OF THE [place] IN LAST 30 DAYS: No - Related Data Allergies/Adverse Reactions: Penicillins Allergy (Unknown, Verified 10/25/16 08:46) cephalexin monohydrate [From Keflex] Allergy (Verified 10/25/16 08:46) ciprofloxacin [From Cipro] Allergy (Verified 10/25/16 08:46) Iodinated Contrast- Oral and IV Dye [IV Dye, Iodine Containing] Allergy ( Verified 10/25/16 08:46) latex [Latex] Allergy (Verified 10/25/16 08:46) metformin Allergy (Verified 10/25/16 08:46) nitrofurantoin macrocrystalline [From Macrodantin] Allergy (Verified 10/25/16 08 :46) penicillin G Allergy (Verified 10/25/16 08:46) Sulfa (Sulfonamide Antibiotics) Allergy (Verified 10/25/16 08:46) tetracycline [Tetracycline] Allergy (Verified 10/25/16 08:46) nitroglycerin [From Nitrostat] Adverse Reaction (Verified 10/25/16 08:46) Past Medical History - General Information source: Patient - Past Medical History Cardiac Medical History: Reports: Hx Hypercholesterolemia, Hx Hypertension Pulmonary Medical History: Reports: Hx Asthma Neurological Medical History: Reports: Hx Cerebrovascular Accident, Hx Migraine Endocrine Medical History: Reports: Hx Diabetes Mellitus Type 1. Denies: Hx Hyperthyroidism, Hx Hypothyroidism. Comment Only: Hx Diabetes Mellitus Type 2 - gastroparesis Renal/ Medical History: Denies: Hx Peritoneal Dialysis Malignancy Medical History: Reports: Hx Cervical Cancer GI Medical History: Reports: Hx Gastroesophageal Reflux Disease. Denies: Hx Cirrhosis, Hx Hepatitis Musculoskeltal Medical History: Reports Hx Arthritis, Reports Hx Fibromyalgia, Reports Hx Musculoskeletal Deformity, Reports Hx Musculoskeletal Trauma Psychiatric Medical History: Reports: Hx Anxiety, Hx Depression Traumatic Medical History: Reports: Hx Fractures - Facial fractures Infectious Medical History: Denies: Hx Hepatitis Past Surgical History: Reports: Hx Abdominal Surgery - hernia, Hx Section - 2, Hx Cholecystectomy, Hx Hysterectomy - partial, Hx Orthopedic Surgery - bilateral toes and elbows left knee twice, Hx Tubal Ligation, Other - Ventral hernia and pseudocyst removal. Denies: Hx Appendectomy - Immunizations Immunizations up to date: Yes Hx Diphtheria, Pertussis, Tetanus Vaccination: Yes Review of Systems - Review of Systems Neurological/Psychological: See HPI Physical Exam - Notes Notes: PHYSICAL EXAMINATION: GENERAL: Well-appearing and in no acute distress.
[2016-12-05 19:19] LABS: APPEARANCE,URINE CLEAR; BILIRUBIN,URINE NEGATIVE (NEGATIVE); GLUCOSE, URINE >=500 mg/dL (NEGATIVE); KETONES,URINE TRACE mg/dL (NEGATIVE); LEUKOCYTE ESTERASE,URINE NEGATIVE (NEGATIVE); NITRITE,URINE NEGATIVE (NEGATIVE); PROTEIN,URINE NEGATIVE (NEGATIVE); URINE SPECIFIC GRAVITY 1.029; UROBILINOGEN,URINE NEGATIVE mg/dL (<2.0)
[2016-12-05 19:30] LABS: VENOUS BLOOD HCO3 26.6 mmol/L (20-32); VENOUS BLOOD PCO2 50.9 mmHg (35-63); VENOUS BLOOD PH 7.34 (7.30-7.42)
[2016-12-05 19:31] LABS: ABSOLUTE BASOPHILS # (AUTO) 0.1 10^3/uL (0.0-0.2); ABSOLUTE EOSINOPHILS # (AUTO) 0.2 10^3/uL (0.0-0.6); ABSOLUTE MONOCYTES (AUTO) 0.4 10^3/uL (0.1-1.4); ABSOLUTE NEUT (AUTO) 3.5 10^3/uL (1.7-8.2); BASOPHILS % (AUTO) 0.9 % (0-2); EOSINOPHILS % (AUTO) 3.9 % (0-6); HEMATOCRIT 42.3 % (36.0-47.0); HEMOGLOBIN 13.9 g/dL (12.0-15.5); HGB HCT DIFFERENCE -0.6; LYMPHOCYTES % (AUTO) 32.6 % (13-45); MEAN CORPUSCULAR HEMOGLOBIN 27.2 pg (27.0-33.4); MEAN CORPUSCULAR HGB CONC 32.8 g/dL (32.0-36.0); MEAN CORPUSCULAR VOLUME 83 fl (80-97); MONOCYTES % (AUTO) 7.1 % (3-13); RED CELL DISTRIBUTION WIDTH 13.7 % (11.5-14.0); SEGMENTED NEUTROPHILS % (AUTO) 55.5 % (42-78); WHITE BLOOD COUNT 6.3 10^3/uL (4.0-10.5)
[2016-12-05 19:44] LABS: ALANINE AMINOTRANSFERASE 37 U/L (9-52); ALBUMIN 4.5 g/dL (3.5-5.0); ALKALINE PHOSPHATASE 92 U/L (38-126); ANION GAP 11 (5-19); ASPARTATE AMINO TRANSFERASE 19 U/L (14-36); BILIRUBIN,DIRECT 0.3 mg/dL (0.0-0.4); BILIRUBIN,TOTAL 0.6 mg/dL (0.2-1.3); BLOOD UREA NITROGEN 16 mg/dL (7-20); CALCIUM 9.5 mg/dL (8.4-10.2); CARBON DIOXIDE 26 mmol/L (22-30); CHLORIDE 98 mmol/L (98-107); CREATININE RESULT 0.68 mg/dL (0.52-1.25); POTASSIUM 4.7 mmol/L (3.6-5.0); SODIUM 134.7 mmol/L (137-145); TOTAL PROTEIN 7.6 g/dL (6.3-8.2)
[2016-12-05 19:52] LABS: GLUCOSE 576 mg/dL (75-110)
[2016-12-05] MEDS ORDERED: INSULIN REG, HUMAN 100 UNIT/ML 3 ML VIAL (PYX) IV ONE (20:11)
--- NOTE | 2016-12-05 20:41 | ER Document Report ---
ED Blood Sugar Problem - General Mode of Arrival: Medic Information source: Patient TRAVEL OUTSIDE OF THE [place] IN LAST 30 DAYS: No - HPI Onset: This evening - Refer to HPI note <MOISES GRAYSON - Last Filed: 12/05/16 20:41> <DEEPAK GARZA - Last Filed: 12/05/16 21:40> - General Chief Complaint: High Blood Sugar Stated Complaint: HEADACHE Time Seen by Provider: 12/05/16 18:37 Notes: Patient is a 56-year old female presenting to the emergency department for high blood glucose level. Patient states she checked her glucose level prior to eating dinner and it read "high" which scared the patient. Patient did not give herself any insulin and did not eat; patient called 911 after trying to get in touch with her doctor. Patient takes NovoLog 30 minutes prior to dinnertime and she takes Lantus at bedtime. Patient denies any nausea or vomiting. Patient does complain of a headache which she relates to the hot weather since it started after she was outside with EMS. (MOISES GRAYSON) - Related Data Allergies/Adverse Reactions: Penicillins Allergy (Unknown, Verified 10/25/16 08:46) cephalexin monohydrate [From Keflex] Allergy (Verified 10/25/16 08:46) ciprofloxacin [From Cipro] Allergy (Verified 10/25/16 08:46) Iodinated Contrast- Oral and IV Dye [IV Dye, Iodine Containing] Allergy ( Verified 10/25/16 08:46) latex [Latex] Allergy (Verified 10/25/16 08:46) metformin Allergy (Verified 10/25/16 08:46) nitrofurantoin macrocrystalline [From Macrodantin] Allergy (Verified 10/25/16 08 :46) penicillin G Allergy (Verified 10/25/16 08:46) Sulfa (Sulfonamide Antibiotics) Allergy (Verified 10/25/16 08:46) tetracycline [Tetracycline] Allergy (Verified 10/25/16 08:46) nitroglycerin [From Nitrostat] Adverse Reaction (Verified 10/25/16 08:46) Past Medical History - General Information source: Patient - Social History Smoking Status: Never Smoker Cigarette use (# per day): No Chew tobacco use (# tins/day): No Smoking Education Provided: No Frequency of alcohol use: None Drug Abuse: None Family History: Arthritis, CVA, DM, Hyperlipidemia, Hypertension, Malignancy, Thyroid Disfunction Patient has suicidal ideation: No Patient has homicidal ideation: No - Past Medical History Cardiac Medical History: Reports: Hx Hypercholesterolemia, Hx Hypertension Pulmonary Medical History: Reports: Hx Asthma Neurological Medical History: Reports: Hx Cerebrovascular Accident, Hx Migraine Endocrine Medical History: Reports: Hx Diabetes Mellitus Type 2 - gastroparesis Malignancy Medical History: Reports: Hx Cervical Cancer GI Medical History: Reports: Hx Gastroesophageal Reflux Disease Musculoskeltal Medical History: Reports Hx Arthritis, Reports Hx Fibromyalgia, Reports Hx Musculoskeletal Deformity, Reports Hx Musculoskeletal Trauma Psychiatric Medical History: Reports: Hx Anxiety, Hx Depression Traumatic Medical History: Reports: Hx Fractures - Facial fractures Past Surgical History: Reports: Hx Abdominal Surgery - hernia, Hx Section - 2, Hx Cholecystectomy, Hx Hysterectomy - partial, Hx Orthopedic Surgery - bilateral toes and elbows left knee twice, Hx Tubal Ligation, Other - Ventral hernia and pseudocyst removal - Immunizations Immunizations up to date: Yes Hx Diphtheria, Pertussis, Tetanus Vaccination: Yes <MOISES GRAYSON - Last Filed: 12/05/16 20:41> Review of Systems - Review of Systems Constitutional: See HPI, Weakness EENT: No symptoms reported Cardiovascular: No symptoms reported Respiratory: No symptoms reported Gastrointestinal: No symptoms reported Genitourinary: No symptoms reported Female Genitourinary: No symptoms reported Musculoskeletal: No symptoms reported Skin: No symptoms reported Hematologic/Lymphatic: No symptoms reported Neurological/Psychological: No symptoms reported -: Yes All other systems reviewed and negative <MOISES GRAYSON - Last Filed: 12/05/16 20:41> Physical Exam <MOISES GRAYSON - Last Filed: 12/05/16 20:41> <DEEPAK GARZA - Last Filed: 12/05/16 21:40> - Notes Notes: GENERAL: Alert, interacts well. No acute distress. HEAD: Normocephalic, atraumatic. EYES: Pupils equal, round, and reactive to light. Extraocular movements intact. ENT: Oral mucosa moist, tongue midline. NECK: Full range of motion. Supple. Trachea midline. LUNGS: Clear to auscultation bilaterally, no wheezes, rales, or rhonchi. No respiratory distress. HEART: Regular rate and rhythm. No murmurs, gallops, or rubs. ABDOMEN: Soft, non-tender. Non-distended. Bowel sounds present in all 4 quadrants. EXTREMITIES: Moves all 4 extremities spontaneously. No edema. NEUROLOGICAL: Alert and oriented x3. Normal speech. PSYCH: Normal affect, normal mood. SKIN: Warm, dry, normal turgor. No rashes or lesions noted. (MOISES GRAYSON) Course - Laboratory Result Diagrams: 12/05/16 19:05 12/05/16 19:05 <MOISES GRAYSON - Last Filed: 12/05/16 20:41> - Laboratory Result Diagrams: 12/05/16 19:05 12/05/16 19:05 <DEEPAK GARZA - Last Filed: 12/05/16 21:40> - Laboratory Laboratory results interpreted by me: 12/05/16 12/05/16 12/05/16 18:50 19:05 19:05 Sodium 134.7 L Glucose 576 H* Hemoglobin A1c % Serum Osmolality 314 H Urine Glucose (UA) >=500 H Urine Ketones TRACE H Urine Blood SMALL H 12/05/16 19:05 Sodium Glucose Hemoglobin A1c % 11.6 H Serum Osmolality Urine Glucose (UA) Urine Ketones Urine Blood Discharge <MOISES GRAYSON - Last Filed: 12/05/16 20:41> <DEEPAK GARZA - Last Filed: 12/05/16 21:40> - Discharge Clinical Impression: Poorly controlled diabetes mellitus Hyperglycemia due to type 2 diabetes mellitus Qualifiers: Diabetes mellitus assisted insulin use: 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 Your hemoglobin A1c was 11.6 Be sure to take your insulin we are supposed to and check your blood sugars before meals. Follow-up with your doctor this week to show him your lab work from today and watch her sugars are running throughout the day. RETURN TO THE EMERGENCY ROOM IF ANY NEW OR WORSENING SYMPTOMS. Referrals: GINETTE ENGLE MD [Primary Care Provider] - Follow up in 3-5 days Scribe Attestation: 12/05/16 21:40 I personally performed the services described in the documentation, reviewed and edited the documentation which was dictated to the scribe in my presence, and it accurately records my words and actions. (DEEPAK GARZA) Scribe Documentation - Scribe Written by Kole:: Kole Reeves, 12/05/2016 20:37 acting as scribe for :: Petar <MOISES GRAYSON - Last Filed: 12/05/16 20:41>
[2016-12-05 22:59] VITALS: BP 156/89
== END 2016-12-05 23:00 | disposition home or self-care (01) ==
LOC: ER 18:26
DX: E11.65 Type 2 diabetes mellitus with hyperglycemia (principal); R51 Headache
CPT/HCPCS: 99283; 96360; 96361; 36415; 82962; 83930; 85025; 80053; 81001; 83036; 82803; J1815; J7030

== ENCOUNTER 2017-01-17 10:57 | Emergency (ER) | payer BC ==
[2017-01-17 11:02] VITALS: BP 140/84
--- NOTE | 2017-01-17 12:03 | ER Document Report ---
ED Medical Screen (RME) - General Chief Complaint: Urinary Problem Stated Complaint: URINARY PROBLEM Time Seen by Provider: 01/17/17 11:59 Notes: 57-year-old female diabetic with urinary frequency and right flank pain for 2 days. Noted blood in the urine this morning. She was also a little nauseous today and has not taken her insulin this morning. There is no fever or cough. She also reports a rash on the inside of her ankles. There is no itching to this rash. She recently obtained a job and began working at [employer]. TRAVEL OUTSIDE OF THE [place] IN LAST 30 DAYS: No - Related Data Allergies/Adverse Reactions: Penicillins Allergy (Unknown, Verified 01/17/17 11:01) cephalexin monohydrate [From Keflex] Allergy (Verified 01/17/17 11:01) ciprofloxacin [From Cipro] Allergy (Verified 01/17/17 11:01) Iodinated Contrast- Oral and IV Dye [IV Dye, Iodine Containing] Allergy ( Verified 01/17/17 11:01) latex [Latex] Allergy (Verified 01/17/17 11:01) metformin Allergy (Verified 01/17/17 11:01) nitrofurantoin macrocrystalline [From Macrodantin] Allergy (Verified 01/17/17 11 :01) penicillin G Allergy (Verified 01/17/17 11:01) Sulfa (Sulfonamide Antibiotics) Allergy (Verified 01/17/17 11:01) tetracycline [Tetracycline] Allergy (Verified 01/17/17 11:01) nitroglycerin [From Nitrostat] Adverse Reaction (Verified 01/17/17 11:01) Past Medical History - General Information source: Patient, [facility] Records - Social History Cigarette use (# per day): No Chew tobacco use (# tins/day): No Frequency of alcohol use: None Drug Abuse: None Occupation: [employer] Lives with: Family Family history: Reviewed & Not Pertinent - Past Medical History Cardiac Medical History: Reports: Hx Hypercholesterolemia, Hx Hypertension Pulmonary Medical History: Reports: Hx Asthma EENT Medical History: Reports: None Neurological Medical History: Reports: Hx Cerebrovascular Accident, Hx Migraine Endocrine Medical History: Reports: Hx Diabetes Mellitus Type 2 - gastroparesis Renal/ Medical History: Reports: None Malignancy Medical History: Reports: Hx Cervical Cancer GI Medical History: Reports: Hx Gastroesophageal Reflux Disease Musculoskeltal Medical History: Reports Hx Arthritis, Reports Hx Fibromyalgia, Reports Hx Musculoskeletal Deformity, Reports Hx Musculoskeletal Trauma Psychiatric Medical History: Reports: Hx Anxiety, Hx Depression Traumatic Medical History: Reports: Hx Fractures - Facial fractures Past Surgical History: Reports: Hx Section - 2, Hx Cholecystectomy, Hx Hysterectomy, Hx Orthopedic Surgery - bilateral toes and elbows left knee twice, Hx Tubal Ligation, Other - Ventral hernia and pseudocyst removal - Immunizations Immunizations up to date: Yes Hx Diphtheria, Pertussis, Tetanus Vaccination: Yes Review of Systems - Review of Systems Constitutional: No symptoms reported EENT: No symptoms reported Cardiovascular: No symptoms reported Respiratory: No symptoms reported Gastrointestinal: Nausea - Some nausea this morning. Genitourinary: Hematuria - Hematuria noted this morning. Female Genitourinary: Post menopausal Musculoskeletal: Back pain, Joint pain, Muscle pain Skin: See HPI - Rash on the inner ankles Hematologic/Lymphatic: No symptoms reported Neurological/Psychological: No symptoms reported Physical Exam - Vital signs Vitals: Temp Pulse Resp BP Pulse Ox 97.6 F 89 16 140/84 H 97 01/17/17 11:01/17/17 11:01/17/17 11:01/17/17 11:01/17/17 11:00 Interpretation: Normal - General General appearance: Appears well, Alert In distress: None - HEENT Head: Normocephalic, Atraumatic Eyes: Normal Pupils: PERRL Neck: Normal - Respiratory Respiratory status: No respiratory distress Breath sounds: Normal - Cardiovascular Rhythm: Regular - Abdominal Inspection: Normal - Back Back: Normal - Extremities General upper extremity: Normal inspection General lower extremity: Other - There is a petechial type rash noted on the inner ankles bilaterally with the right more predominant than the left. Some areas do seem to thiago slightly for most areas do not. The skin itself does not appear to be involved as this appears to be all beneath the skin surface. It is not raised, it does not itch. There are no breaks in the skin noted.. No : Edema - Neurological Neuro grossly intact: Yes - Psychological Associated symptoms: Normal affect, Normal mood - Skin Skin Temperature: Warm Skin Moisture: Dry Skin Color: Normal Course - Vital Signs Vital signs: Temp Pulse Resp BP Pulse Ox 97.6 F 89 16 140/84 H 97 01/17/17 11:01/17/17 11:00 01/17/17 11:00 01/17/17 11:00 01/17/17 11:00 - Laboratory Result Diagrams: 01/17/17 12:20 01/17/17 12:20 Laboratory results interpreted by me: 01/17/17 01/17/17 01/17/17 11:05 12:20 12:20 RBC 5.38 H Sodium 136.0 L Potassium 5.2 H Glucose 385 H Direct Bilirubin 0.5 H Urine Glucose (UA) >=500 H Urine Ketones TRACE H Doctor's Discharge - Discharge Clinical Impression: Dehydration, Rash Hyperglycemia due to type 2 diabetes mellitus Qualifiers: Diabetes mellitus long term care pharmacist insulin use: unspecified longterm insulin use status Qualified Code(s): E11.65 - Type 2 diabetes mellitus with hyperglycemia Condition: Stable Disposition: HOME, SELF-CARE Additional Instructions: There was no blood in the urine on microscopic exam. The urine was cut quite concentrated and suggests you need to drink much more water than you have been. Your blood sugar was elevated at 385. The rash appearing on your ankles appears to be a petechial type rash which is coming from the blood vessels under the skin. Your CBC did not show an elevation of white blood cell count or any suggestion of an infectious process. You should drink plenty of fluids. Elevate your feet. Rest over the weekend. Check your sugars regularly and take your insulin. Follow-up with your primary care provider if not improving. RETURN TO THE EMERGENCY ROOM IF ANY NEW OR WORSENING SYMPTOMS. Forms: Return to Work
[2017-01-17 12:33] LABS: ABSOLUTE BASOPHILS # (AUTO) 0.1 10^3/uL (0.0-0.2); ABSOLUTE EOSINOPHILS # (AUTO) 0.2 10^3/uL (0.0-0.6); ABSOLUTE MONOCYTES (AUTO) 0.4 10^3/uL (0.1-1.4); BASOPHILS % (AUTO) 1.6 % (0-2); EOSINOPHILS % (AUTO) 2.8 % (0-6); HEMATOCRIT 44.3 % (36.0-47.0); HEMOGLOBIN 14.9 g/dL (12.0-15.5); HGB HCT DIFFERENCE 0.4; LYMPHOCYTES % (AUTO) 35.2 % (13-45); MEAN CORPUSCULAR HEMOGLOBIN 27.7 pg (27.0-33.4); MEAN CORPUSCULAR HGB CONC 33.6 g/dL (32.0-36.0); MEAN CORPUSCULAR VOLUME 82 fl (80-97); MONOCYTES % (AUTO) 7.8 % (3-13); RED BLOOD COUNT 5.38 10^6/uL (3.72-5.28); RED CELL DISTRIBUTION WIDTH 13.3 % (11.5-14.0); SEGMENTED NEUTROPHILS % (AUTO) 52.6 % (42-78); WHITE BLOOD COUNT 5.7 10^3/uL (4.0-10.5)
[2017-01-17 12:55] LABS: ALANINE AMINOTRANSFERASE 40 U/L (9-52); ALBUMIN 4.9 g/dL (3.5-5.0); ALKALINE PHOSPHATASE 120 U/L (38-126); ANION GAP 10 (5-19); ASPARTATE AMINO TRANSFERASE 23 U/L (14-36); BILIRUBIN,DIRECT 0.5 mg/dL (0.0-0.4); BILIRUBIN,TOTAL 0.8 mg/dL (0.2-1.3); BLOOD UREA NITROGEN 13 mg/dL (7-20); CALCIUM 9.9 mg/dL (8.4-10.2); CARBON DIOXIDE 28 mmol/L (22-30); CHLORIDE 98 mmol/L (98-107); GLUCOSE 385 mg/dL (75-110); POTASSIUM 5.2 mmol/L (3.6-5.0)
[2017-01-17 13:13] LABS: APPEARANCE,URINE CLEAR; BILIRUBIN,URINE NEGATIVE (NEGATIVE); GLUCOSE, URINE >=500 mg/dL (NEGATIVE); KETONES,URINE TRACE mg/dL (NEGATIVE); LEUKOCYTE ESTERASE,URINE NEGATIVE (NEGATIVE); NITRITE,URINE NEGATIVE (NEGATIVE); PROTEIN,URINE NEGATIVE (NEGATIVE); URINE SPECIFIC GRAVITY 1.033; UROBILINOGEN,URINE NEGATIVE mg/dL (<2.0)
[2017-01-17] MEDS ORDERED: INSULIN REG, HUMAN 100 UNIT/ML 3 ML VIAL (PYX) SUBCUT ONE (15:39)
[2017-01-17] MEDS ORDERED: ONDANSETRON 4 MG TAB.RAPDIS PO ONE (15:39)
[2017-01-17] MEDS ORDERED: ONDANSETRON ODT 4 MG TAB (6 TAB/DSPK) PO PRN (16:09)
== END 2017-01-17 16:20 | disposition home or self-care (01) ==
LOC: ER 10:57
DX: E11.65 Type 2 diabetes mellitus with hyperglycemia (principal); E86.0 Dehydration; R21 Rash and other nonspecific skin eruption; R39.198 Other difficulties with micturition
CPT/HCPCS: 99283; 36415; 85025; 80053; 81001; S0119; J1815

== ENCOUNTER 2017-01-29 15:31 | Emergency (ER) | payer BC ==
[2017-01-29 15:56] VITALS: BP 147/76
--- NOTE | 2017-01-29 16:29 | ER Document Report ---
HPI - HPI Pain Level: 4 Notes: Patient is a 57-year-old diabetic female who presents the ED complaining of 3 open superficial sores to her lower abdomen 1-2 days. Patient states that she has not noticed any purulent discharge, abscess, streaks. Patient states that she has noticed a little bit of erythema surrounding the sores. She still eating and drinking without any difficulties. The sores are not in the area of her insulin injections. She has not used any [id number] meds for her symptoms. Patient states that she has an extensive allergy list and that her PCM is out of town right now. Denies any headache, fever, URI, sore throat, chest pain, palpitations, syncope, cough, shortness of breath, wheeze, dyspnea, abdominal pain, nausea/vomiting/diarrhea, urinary retention, dysuria, hematuria. No history of MRSA. - ROS Notes: REVIEW OF SYSTEMS: CONSTITUTIONAL : Denies fever, chills, or sweats. Denies recent illness. EENT: Denies eye, ear, throat, or mouth pain or symptoms. Denies nasal or sinus congestion or discharge. Denies throat, tongue, or mouth swelling or difficulty swallowing. CARDIOVASCULAR: Denies chest pain. Denies palpitations or racing or irregular heart beat. Denies ankle edema. RESPIRATORY: Denies cough, cold, or chest congestion. Denies shortness of breath, difficulty breathing, or wheezing. GASTROINTESTINAL: Denies abdominal pain or distention. Denies nausea, vomiting , or diarrhea. Denies blood in vomitus, stools, or per rectum. Denies black, tarry stools. Denies constipation. GENITOURINARY: Denies difficulty urinating, painful urination, burning, frequency, blood in urine, or discharge. MUSCULOSKELETAL: Denies back or neck pain or stiffness. Denies joint pain or swelling. SKIN: see hpi NEUROLOGICAL: Denies confusion or altered mental status. Denies passing out or loss of consciousness. Denies dizziness or lightheadedness. Denies headache. Denies weakness or paralysis or loss of use of either side. Denies problems with gait or speech. Denies sensory loss, numbness, or tingling. ALL OTHER SYSTEMS REVIEWED AND NEGATIVE. Dictation was performed using [employer] voice recognition software - REPRODUCTIVE Reproductive: DENIES: : - DERM Skin Color: Normal Past Medical History - Social History Smoking Status: Never Smoker Family History: Arthritis, CVA, DM, Hyperlipidemia, Hypertension, Malignancy, Thyroid Disfunction Patient has suicidal ideation: No Patient has homicidal ideation: No - Past Medical History Cardiac Medical History: Reports: Hx Hypercholesterolemia, Hx Hypertension Pulmonary Medical History: Reports: Hx Asthma Neurological Medical History: Reports: Hx Cerebrovascular Accident, Hx Migraine Endocrine Medical History: Reports: Hx Diabetes Mellitus Type 1, Hx Diabetes Mellitus Type 2 - gastroparesis. Denies: Hx Hyperthyroidism, Hx Hypothyroidism Renal/ Medical History: Denies: Hx Peritoneal Dialysis Malignancy Medical History: Reports: Hx Cervical Cancer GI Medical History: Reports: Hx Gastroesophageal Reflux Disease. Denies: Hx Cirrhosis, Hx Hepatitis Musculoskeltal Medical History: Reports Hx Arthritis, Reports Hx Fibromyalgia, Reports Hx Musculoskeletal Deformity, Reports Hx Musculoskeletal Trauma Psychiatric Medical History: Reports: Hx Anxiety, Hx Depression Traumatic Medical History: Reports: Hx Fractures - Facial fractures Infectious Medical History: Denies: Hx Hepatitis Past Surgical History: Reports: Hx Abdominal Surgery - hernia, Hx Section - 2, Hx Cholecystectomy, Hx Hysterectomy, Hx Orthopedic Surgery - bilateral toes and elbows left knee twice, Hx Tubal Ligation, Other - Ventral hernia and pseudocyst removal. Denies: Hx Appendectomy - Immunizations Immunizations up to date: Yes Hx Diphtheria, Pertussis, Tetanus Vaccination: Yes Vertical Provider Document - CONSTITUTIONAL Agree With Documented VS: Yes Notes: PHYSICAL EXAMINATION: GENERAL: Well-appearing, well-nourished and in no acute distress. LUNGS: Breath sounds clear to auscultation bilaterally and equal. No wheezes rales or rhonchi. HEART: Regular rate and rhythm without murmurs, rubs, gallops. ABDOMEN: Soft, nontender, nondistended abdomen. No guarding, no rebound. No masses appreciated. Normal bowel sounds present. No CVA tenderness bilaterally. Extremities: No cyanosis, clubbing, or edema b/l. Peripheral pulses 2+. Capillary refill less than 3 seconds. NEUROLOGICAL: Cranial nerves grossly intact. Normal speech, normal gait. Normal sensory, motor exams PSYCH: Normal mood, normal affect. SKIN: 3 separte 2cm open superficial sores noted to lower abdomen. Mild erythema surrounding the 3 sores. No induration, abscess, streaks, or tenderness. - INFECTION CONTROL TRAVEL OUTSIDE OF THE [place] IN LAST 30 DAYS: No - RESPIRATORY O2 Sat by Pulse Oximetry: 95 Course - Re-evaluation Re-evalutation: 01/29/17 16:28 Patient is an afebrile, well-hydrated, 57-year-old insulin diabetic female who presents the ED with 3 very superficial source to her lower abdomen that may be developing an early infection. Because of her risk factors, I will cover her with clindamycin to take 3 times a day for 1 week. Patient has an allergy to penicillins, cephalosporins, sulfa, tetracyclines. C. difficile precautions reviewed. Risks and benefits are understood. Conservative measures otherwise for symptoms as reviewed in discharge. Low suspicion for any sepsis, necrotizing fasciitis, meningitis, lymphangitis, or other urgent/emergent systemic conditions at this time. Recheck with your PCM this week. Return to the ED with any worsening/concerning symptoms otherwise as reviewed in discharge. Patient is in agreement. - Vital Signs Vital signs: Temp Pulse Resp BP Pulse Ox 98.4 F 93 16 147/76 H 95 01/29/17 15:55 01/29/17 15:55 01/29/17 15:55 01/29/17 15:55 01/29/17 15:55 Discharge - Discharge Clinical Impression: Cellulitis Qualifiers: Site of cellulitis: trunk Site of cellulitis of trunk: abdominal wall Qualified Code(s): L03.311 - Cellulitis of abdominal wall Condition: Stable Disposition: HOME, SELF-CARE Instructions: Cellulitis ([facility]), Clindamycin ([facility]) Additional Instructions: Keep the skin clean Wash with soap and water Apply bacitracin as directed Epson salt soaks may help Take antibiotic as directed Monitor for any worsening symptoms recheck with your PCM this week Return to the ED with any worsening symptoms and/or development of fever, headache, chest pain, palpitations, syncope, shortness of breath, trouble breathing, abdominal pain, n/v/d, blood in stool/urine, abscess, purulent discharge, red streaks, or other worsening symptoms that are concerning to you. Prescriptions: Clindamycin HCl [Cleocin 300 mg Capsule] 300 mg PO TID #30 capsule Forms: Elevated Blood Pressure Referrals: [facility] [Provider Group] - Follow up as needed [facility] [Provider Group] - Follow up as needed
== END 2017-01-29 16:39 | disposition home or self-care (01) ==
LOC: ER 15:31
DX: L03.311 Cellulitis of abdominal wall (principal); E11.9 Type 2 diabetes mellitus without complications; E78.00 Pure hypercholesterolemia, unspecified; I10 Essential (primary) hypertension; Z86.73 Personal history of transient ischemic attack (TIA), and cerebral infarction without residual deficits; Z85.41 Personal history of malignant neoplasm of cervix uteri; Z90.49 Acquired absence of other specified parts of digestive tract; Z90.710 Acquired absence of both cervix and uterus; Z79.4 Long term (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 of insulin
CPT/HCPCS: 99283

== ENCOUNTER 2017-03-08 11:34 | Emergency (ER) | payer SELFPAY ==
[2017-03-08] MEDS ORDERED: NORMAL SALINE 1000 ML 1,000 ML IV ONE ×2 (11:48→14:16)
[2017-03-08 12:11] LABS: ABSOLUTE EOSINOPHILS # (AUTO) 0.1 10^3/uL (0.0-0.6); ABSOLUTE LYMPHOCYTES (AUTO) 1.7 10^3/uL (0.5-4.7); ABSOLUTE MONOCYTES (AUTO) 0.6 10^3/uL (0.1-1.4); ABSOLUTE NEUT (AUTO) 3.5 10^3/uL (1.7-8.2); BASOPHILS % (AUTO) 0.8 % (0-2); EOSINOPHILS % (AUTO) 1.7 % (0-6); HEMATOCRIT 36.5 % (36.0-47.0); HEMOGLOBIN 12.6 g/dL (12.0-15.5); HGB HCT DIFFERENCE 1.3; LYMPHOCYTES % (AUTO) 29.2 % (13-45); MEAN CORPUSCULAR HEMOGLOBIN 28.2 pg (27.0-33.4); MEAN CORPUSCULAR HGB CONC 34.5 g/dL (32.0-36.0); MEAN CORPUSCULAR VOLUME 82 fl (80-97); MONOCYTES % (AUTO) 10.5 % (3-13); RED BLOOD COUNT 4.47 10^6/uL (3.72-5.28); RED CELL DISTRIBUTION WIDTH 13.9 % (11.5-14.0); SEGMENTED NEUTROPHILS % (AUTO) 57.8 % (42-78)
[2017-03-08 12:16] LABS: VENOUS BLOOD BASE EXCESS 4.6 mmol/L; VENOUS BLOOD HCO3 30.6 mmol/L (20-32); VENOUS BLOOD PCO2 50.6 mmHg (35-63); VENOUS BLOOD PH 7.4 (7.30-7.42)
[2017-03-08 12:34] LABS: ALANINE AMINOTRANSFERASE 33 U/L (9-52); ALBUMIN 3.9 g/dL (3.5-5.0); ALKALINE PHOSPHATASE 86 U/L (38-126); ANION GAP 12 (5-19); ASPARTATE AMINO TRANSFERASE 16 U/L (14-36); BILIRUBIN,DIRECT 0.4 mg/dL (0.0-0.4); BLOOD UREA NITROGEN 20 mg/dL (7-20); CALCIUM 9.1 mg/dL (8.4-10.2); CARBON DIOXIDE 31 mmol/L (22-30); CHLORIDE 91 mmol/L (98-107); CREATININE RESULT 0.76 mg/dL (0.52-1.25); POTASSIUM 4.2 mmol/L (3.6-5.0); SODIUM 134.4 mmol/L (137-145); TOTAL PROTEIN 6.1 g/dL (6.3-8.2)
[2017-03-08 12:42] LABS: GLUCOSE 536 mg/dL (75-110)
[2017-03-08] MEDS ORDERED: PROCHLORPERAZINE EDISYLATE INJ 10 MG/2 ML VIAL IV ONE (12:50)
[2017-03-08] MEDS ORDERED: INSULIN REG, HUMAN 100 UNIT/ML 3 ML VIAL (PYX) SUBCUT ONE ×2 (12:50→14:16)
[2017-03-08] MEDS ORDERED: ONDANSETRON HCL INJ/PF 4 MG/2 ML SDV IV ONE (12:50)
[2017-03-08 13:23] LABS: APPEARANCE,URINE CLEAR; BILIRUBIN,URINE NEGATIVE (NEGATIVE); GLUCOSE, URINE >=500 mg/dL (NEGATIVE); KETONES,URINE NEGATIVE (NEGATIVE); LEUKOCYTE ESTERASE,URINE LARGE (NEGATIVE); NITRITE,URINE NEGATIVE (NEGATIVE); PROTEIN,URINE NEGATIVE (NEGATIVE); URINE SPECIFIC GRAVITY 1.021
--- NOTE | 2017-03-08 15:35 | ER Document Report ---
ED General - General Chief Complaint: High Blood Sugar Stated Complaint: BLOOD SUGAR PROBLEMS Time Seen by Provider: 03/08/17 11:48 TRAVEL OUTSIDE OF THE [place] IN LAST 30 DAYS: No - HPI Patient complains to provider of: Elevated blood sugar Notes: Patient coming in for evaluation of elevated blood sugar. Patient states type I diabetic patient states she is on insulin at home states compliant with her medications. Patient states nauseous and had a slight headache today but her blood sugar was low therefore she drink part of a diet soda and had a honey bun. Upon arrival EMS had a blood sugar 500. Here in the ER blood sugar greater than 500. Patient denies any other symptoms denies fevers chills diarrhea denies any recent travel or changes to her medication. Patient is resting currently no signs of any obvious distress upon my evaluation. - Related Data Allergies/Adverse Reactions: Penicillins Allergy (Unknown, Verified 01/29/17 15:53) cephalexin monohydrate [From Keflex] Allergy (Verified 01/29/17 15:53) ciprofloxacin [From Cipro] Allergy (Verified 01/29/17 15:53) Iodinated Contrast- Oral and IV Dye [IV Dye, Iodine Containing] Allergy ( Verified 01/29/17 15:53) latex [Latex] Allergy (Verified 01/29/17 15:53) metformin Allergy (Verified 01/29/17 15:53) nitrofurantoin macrocrystalline [From Macrodantin] Allergy (Verified 01/29/17 15 :53) penicillin G Allergy (Verified 01/29/17 15:53) Sulfa (Sulfonamide Antibiotics) Allergy (Verified 01/29/17 15:53) tetracycline [Tetracycline] Allergy (Verified 01/29/17 15:53) nitroglycerin [From Nitrostat] Adverse Reaction (Verified 01/17/17 11:01) Past Medical History - Social History Smoking Status: Former Smoker Chew tobacco use (# tins/day): No Frequency of alcohol use: None Drug Abuse: None Family History: Arthritis, CVA, DM, Hyperlipidemia, Hypertension, Malignancy, Thyroid Disfunction Patient has suicidal ideation: No Patient has homicidal ideation: No - Past Medical History Cardiac Medical History: Reports: Hx Hypercholesterolemia, Hx Hypertension Pulmonary Medical History: Reports: Hx Asthma Neurological Medical History: Reports: Hx Cerebrovascular Accident, Hx Migraine Endocrine Medical History: Reports: Hx Diabetes Mellitus Type 1, Hx Diabetes Mellitus Type 2 - gastroparesis. Denies: Hx Hyperthyroidism, Hx Hypothyroidism Renal/ Medical History: Denies: Hx Peritoneal Dialysis Malignancy Medical History: Reports: Hx Cervical Cancer GI Medical History: Reports: Hx Gastroesophageal Reflux Disease. Denies: Hx Cirrhosis, Hx Hepatitis Musculoskeltal Medical History: Reports Hx Arthritis, Reports Hx Fibromyalgia, Reports Hx Musculoskeletal Deformity, Reports Hx Musculoskeletal Trauma Psychiatric Medical History: Reports: Hx Anxiety, Hx Depression Traumatic Medical History: Reports: Hx Fractures - Facial fractures Infectious Medical History: Denies: Hx Hepatitis Past Surgical History: Reports: Hx Abdominal Surgery - hernia, Hx Section - 2, Hx Cholecystectomy, Hx Hysterectomy, Hx Orthopedic Surgery - bilateral toes and elbows left knee twice, Hx Tubal Ligation, Other - Ventral hernia and pseudocyst removal. Denies: Hx Appendectomy - Immunizations Immunizations up to date: Yes Hx Diphtheria, Pertussis, Tetanus Vaccination: Yes Review of Systems - Review of Systems Constitutional: Other - Headache nausea vomiting elevated blood sugars EENT: No symptoms reported Cardiovascular: No symptoms reported Respiratory: No symptoms reported Gastrointestinal: No symptoms reported Genitourinary: No symptoms reported Female Genitourinary: No symptoms reported Musculoskeletal: No symptoms reported Skin: No symptoms reported Hematologic/Lymphatic: No symptoms reported Neurological/Psychological: No symptoms reported Physical Exam - Vital signs Vitals: Temp Pulse Resp BP Pulse Ox 97.4 F 97 16 107/68 94 03/08/17 11:35 03/08/17 11:35 03/08/17 11:35 03/08/17 11:35 03/08/17 11:35 Interpretation: Normal - General General appearance: Appears well, Alert - HEENT Head: Normocephalic, Atraumatic Eyes: Normal Pupils: PERRL - Respiratory Respiratory status: No respiratory distress Chest status: Nontender Breath sounds: Normal Chest palpation: Normal - Cardiovascular Rhythm: Regular Heart sounds: Normal auscultation Murmur: No - Abdominal Inspection: Normal Distension: No distension Bowel sounds: Normal Tenderness: Nontender Organomegaly: No organomegaly - Back Back: Normal, Nontender - Extremities General upper extremity: Normal inspection, Nontender, Normal color, Normal ROM , Normal temperature General lower extremity: Normal inspection, Nontender, Normal color, Normal ROM , Normal temperature, Normal weight bearing. No: Yoel's sign - Neurological Neuro grossly intact: Yes Cognition: Normal Orientation: AAOx4 [place] Coma Scale Eye Opening: Spontaneous Naren Coma Scale Verbal: Oriented [place] Coma Scale Motor: Obeys Commands Naren Coma Scale Total: 15 Speech: Normal Motor strength normal: LUE, RUE, LLE, RLE Sensory: Normal - Psychological Associated symptoms: Normal affect, Normal mood - Skin Skin Temperature: Warm Skin Moisture: Dry Skin Color: Normal Course - Re-evaluation Re-evalutation: 03/08/17 15:34 Patient coming in for evaluation of nausea vomiting elevated blood sugars no signs of DKA no signs of any other significant pathology. Patient will be discharged home encouraged patient follow-up with primary care physician and possibly undergo further diabetic teaching. - Vital Signs Vital signs: Temp Pulse Resp BP Pulse Ox 97.4 F 97 16 107/68 94 03/08/17 11:35 03/08/17 11:35 03/08/17 11:35 03/08/17 11:35 03/08/17 11:35 - Laboratory Result Diagrams: 03/08/17 11:50 03/08/17 11:50 Laboratory results interpreted by me: 03/08/17 03/08/17 03/08/17 11:46 11:50 12:53 Sodium 134.4 L Chloride 91 L Carbon Dioxide 31 H Glucose 536 H* POC Glucose 523 H* Total Protein 6.1 L Urine Glucose (UA) >=500 H Urine Urobilinogen 2.0 H Ur Leukocyte Esterase LARGE H 03/08/17 03/08/17 13:16 14:14 Sodium Chloride Carbon Dioxide Glucose POC Glucose 429 H* 418 H* Total Protein Urine Glucose (UA) Urine Urobilinogen Ur Leukocyte Esterase Discharge - Discharge Clinical Impression: Hyperglycemia Condition: Good Disposition: HOME, SELF-CARE Instructions: Diabetes ([facility]), Hyperglycemia ([facility]) Additional Instructions: Your lab today shows elevated blood sugar but no signs of DKA or significant pathology. Please follow-up with your primary care physician for further diabetic teaching return to ER symptoms worsen. Referrals: CRISTIANO BRICE PA [Primary Care Provider] - Follow up as needed
[2017-03-08 16:14] VITALS: BP 118/67
== END 2017-03-08 16:10 | disposition home or self-care (01) ==
LOC: ER 11:34
DX: E10.65 Type 1 diabetes mellitus with hyperglycemia (principal); R11.2 Nausea with vomiting, unspecified; R51 Headache; I10 Essential (primary) hypertension; J45.909 Unspecified asthma, uncomplicated; Z88.0 Allergy status to penicillin; Z88.1 Allergy status to other antibiotic agents; Z91.041 Radiographic dye allergy status; Z91.040 Latex allergy status; Z88.8 Allergy status to other drugs, medicaments and biological substances; Z88.2 Allergy status to sulfonamides; Z87.891 Personal history of nicotine dependence; Z86.73 Personal history of transient ischemic attack (TIA), and cerebral infarction without residual deficits; Z85.41 Personal history of malignant neoplasm of cervix uteri
CPT/HCPCS: 99284; 96361; 96374; 96375; 36415; 82962; 85025; 80053; 81001; 82803; J1815; J0780; J2405; J7030

== ENCOUNTER 2017-06-16 14:13 | Emergency (ER) | payer SELFPAY ==
[2017-06-16] MEDS ORDERED: NORMAL SALINE 1000 ML 1,000 ML IV ONE ×2 (14:28→16:05)
[2017-06-16] MEDS ORDERED: MORPHINE SULFATE 10 MG/ML INJ IV ONE (14:28)
[2017-06-16] MEDS ORDERED: ONDANSETRON 4 MG TAB.RAPDIS PO ONE (14:28)
--- NOTE | 2017-06-16 14:29 | ER Document Report ---
ED Medical Screen (RME) - General Chief Complaint: Nausea/Vomiting/Diarrhea Stated Complaint: VOMITING Time Seen by Provider: 06/16/17 14:22 Notes: Patient reports 2 days of upper respiratory symptoms with vomiting and diarrhea as well as lower abdominal pain bilaterally. TRAVEL OUTSIDE OF THE [place] IN LAST 30 DAYS: No - Related Data Allergies/Adverse Reactions: Penicillins Allergy (Unknown, Verified 01/29/17 15:53) cephalexin monohydrate [From Keflex] Allergy (Verified 01/29/17 15:53) ciprofloxacin [From Cipro] Allergy (Verified 01/29/17 15:53) Iodinated Contrast- Oral and IV Dye [IV Dye, Iodine Containing] Allergy ( Verified 01/29/17 15:53) latex [Latex] Allergy (Verified 01/29/17 15:53) metformin Allergy (Verified 01/29/17 15:53) nitrofurantoin macrocrystalline [From Macrodantin] Allergy (Verified 01/29/17 15 :53) penicillin G Allergy (Verified 01/29/17 15:53) Sulfa (Sulfonamide Antibiotics) Allergy (Verified 01/29/17 15:53) tetracycline [Tetracycline] Allergy (Verified 01/29/17 15:53) nitroglycerin [From Nitrostat] Adverse Reaction (Verified 01/17/17 11:01) Past Medical History - Social History Chew tobacco use (# tins/day): No Frequency of alcohol use: None Drug Abuse: None Family history: Reviewed & Not Pertinent - Past Medical History Cardiac Medical History: Reports: Hx Hypercholesterolemia, Hx Hypertension Pulmonary Medical History: Reports: Hx Asthma Neurological Medical History: Reports: Hx Cerebrovascular Accident, Hx Migraine Endocrine Medical History: Reports: Hx Diabetes Mellitus Type 1, Hx Diabetes Mellitus Type 2 - gastroparesis. Denies: Hx Hyperthyroidism, Hx Hypothyroidism Renal/ Medical History: Denies: Hx Peritoneal Dialysis Malignancy Medical History: Reports: Hx Cervical Cancer GI Medical History: Reports: Hx Gastroesophageal Reflux Disease. Denies: Hx Cirrhosis, Hx Hepatitis Musculoskeltal Medical History: Reports Hx Arthritis, Reports Hx Fibromyalgia, Reports Hx Musculoskeletal Deformity, Reports Hx Musculoskeletal Trauma Psychiatric Medical History: Reports: Hx Anxiety, Hx Depression Traumatic Medical History: Reports: Hx Fractures - Facial fractures Infectious Medical History: Denies: Hx Hepatitis Past Surgical History: Reports: Hx Abdominal Surgery - hernia, Hx Section - 2, Hx Cholecystectomy, Hx Hysterectomy, Hx Orthopedic Surgery - bilateral toes and elbows left knee twice, Hx Tubal Ligation, Other - Ventral hernia and pseudocyst removal. Denies: Hx Appendectomy - Immunizations Immunizations up to date: Yes Hx Diphtheria, Pertussis, Tetanus Vaccination: Yes Physical Exam - Vital signs Vitals: Temp Pulse Resp BP Pulse Ox 97.4 F 102 H 16 133/79 H 99 06/16/17 14:17 06/16/17 14:17 06/16/17 14:17 06/16/17 14:17 06/16/17 14:17 Course - Vital Signs Vital signs: Temp Pulse Resp BP Pulse Ox 97.4 F 102 H 16 133/79 H 99 06/16/17 14:17 06/16/17 14:17 06/16/17 14:17 06/16/17 14:17 06/16/17 14:17
[2017-06-16 15:19] LABS: ABSOLUTE BASOPHILS # (AUTO) 0.1 10^3/uL (0.0-0.2); ABSOLUTE EOSINOPHILS # (AUTO) 0.1 10^3/uL (0.0-0.6); ABSOLUTE LYMPHOCYTES (AUTO) 1.9 10^3/uL (0.5-4.7); ABSOLUTE MONOCYTES (AUTO) 0.7 10^3/uL (0.1-1.4); ABSOLUTE NEUT (AUTO) 6.6 10^3/uL (1.7-8.2); BASOPHILS % (AUTO) 0.7 % (0-2); EOSINOPHILS % (AUTO) 0.6 % (0-6); HEMATOCRIT 43.5 % (36.0-47.0); LYMPHOCYTES % (AUTO) 20.4 % (13-45); MEAN CORPUSCULAR HGB CONC 34.6 g/dL (32.0-36.0); MEAN CORPUSCULAR VOLUME 81 fl (80-97); PLATELET COUNT 279 10^3/uL (150-450); RED BLOOD COUNT 5.38 10^6/uL (3.72-5.28); RED CELL DISTRIBUTION WIDTH 13.9 % (11.5-14.0); SEGMENTED NEUTROPHILS % (AUTO) 71.3 % (42-78); TOTAL CELLS COUNTED % (AUTO) 100 %; WHITE BLOOD COUNT 9.2 10^3/uL (4.0-10.5)
[2017-06-16 15:36] LABS: ALANINE AMINOTRANSFERASE 37 U/L (9-52); ALBUMIN 5.1 g/dL (3.5-5.0); ALKALINE PHOSPHATASE 75 U/L (38-126); ANION GAP 14 (5-19); ASPARTATE AMINO TRANSFERASE 23 U/L (14-36); BILIRUBIN,DIRECT 0.4 mg/dL (0.0-0.4); BLOOD UREA NITROGEN 13 mg/dL (7-20); CARBON DIOXIDE 30 mmol/L (22-30); CHLORIDE 89 mmol/L (98-107); POTASSIUM 4.5 mmol/L (3.6-5.0); SODIUM 132.7 mmol/L (137-145)
[2017-06-16 15:51] LABS: GLUCOSE 512 mg/dL (75-110)
--- NOTE | 2017-06-16 16:40 | ER Document Report ---
ED GI/ - General Chief Complaint: Nausea/Vomiting/Diarrhea Stated Complaint: VOMITING Time Seen by Provider: 06/16/17 14:22 Mode of Arrival: Ambulatory Information source: Patient Notes: 57 yo depression, htn, gastroparesis, hyperlipedemia, pancreatitis, neuropathy DM2 female c/o vomiting and diarrhea today at 8 am, went to work, vomited 3 more times at work. Upper abominal pain started in ER, lower abdomen pain prior to arrival, left low back pain chronic for 2 wedks. PCP: dr margo Velasco [facility] in [facility]. Pt asking for pain medication. Has not taken insulin in 3 days. TRAVEL OUTSIDE OF THE [place] IN LAST 30 DAYS: No - Related Data Allergies/Adverse Reactions: Penicillins Allergy (Unknown, Verified 01/29/17 15:53) cephalexin monohydrate [From Keflex] Allergy (Verified 01/29/17 15:53) ciprofloxacin [From Cipro] Allergy (Verified 01/29/17 15:53) Iodinated Contrast- Oral and IV Dye [IV Dye, Iodine Containing] Allergy ( Verified 01/29/17 15:53) latex [Latex] Allergy (Verified 01/29/17 15:53) metformin Allergy (Verified 01/29/17 15:53) nitrofurantoin macrocrystalline [From Macrodantin] Allergy (Verified 01/29/17 15 :53) penicillin G Allergy (Verified 01/29/17 15:53) Sulfa (Sulfonamide Antibiotics) Allergy (Verified 01/29/17 15:53) tetracycline [Tetracycline] Allergy (Verified 01/29/17 15:53) nitroglycerin [From Nitrostat] Adverse Reaction (Verified 01/17/17 11:01) Past Medical History - General Information source: Patient - Social History Smoking Status: Never Smoker Chew tobacco use (# tins/day): No Frequency of alcohol use: None Drug Abuse: None Lives with: Spouse/Significant other Family History: Arthritis, CVA, DM, Hyperlipidemia, Hypertension, Malignancy, Thyroid Disfunction Patient has suicidal ideation: No Patient has homicidal ideation: No - Past Medical History Cardiac Medical History: Reports: Hx Hypercholesterolemia, Hx Hypertension Pulmonary Medical History: Reports: Hx Asthma Neurological Medical History: Reports: Hx Cerebrovascular Accident, Hx Migraine Endocrine Medical History: Reports: Hx Diabetes Mellitus Type 2 - gastroparesis Renal/ Medical History: Denies: Hx Peritoneal Dialysis Malignancy Medical History: Reports: Hx Cervical Cancer GI Medical History: Reports: Hx Gastroesophageal Reflux Disease Musculoskeltal Medical History: Reports Hx Arthritis, Reports Hx Fibromyalgia, Reports Hx Musculoskeletal Deformity, Reports Hx Musculoskeletal Trauma Psychiatric Medical History: Reports: Hx Anxiety, Hx Depression Traumatic Medical History: Reports: Hx Fractures - Facial fractures Past Surgical History: Reports: Hx Abdominal Surgery - hernia, Hx Section - 2, Hx Cholecystectomy, Hx Hysterectomy, Hx Orthopedic Surgery - bilateral toes and elbows left knee twice, Hx Tubal Ligation, Other - Ventral hernia and pseudocyst removal - Immunizations Immunizations up to date: Yes Hx Diphtheria, Pertussis, Tetanus Vaccination: Yes Review of Systems - Review of Systems Constitutional: No symptoms reported EENT: No symptoms reported Cardiovascular: No symptoms reported Respiratory: No symptoms reported Gastrointestinal: See HPI Genitourinary: No symptoms reported Female Genitourinary: No symptoms reported Musculoskeletal: No symptoms reported Skin: No symptoms reported Hematologic/Lymphatic: No symptoms reported Neurological/Psychological: No symptoms reported Physical Exam - Vital signs Vitals: Temp Pulse Resp BP Pulse Ox 97.4 F 102 H 16 133/79 H 99 06/16/17 14:17 06/16/17 14:17 06/16/17 14:17 06/16/17 14:17 06/16/17 14:17 Interpretation: Normal - General General appearance: Appears well, Alert Notes: looks dry - HEENT Head: Normocephalic, Atraumatic Eyes: Normal Conjunctiva: Normal Pupils: PERRL Mucous membranes: Dry Pharynx: Normal Neck: Supple - Respiratory Respiratory status: No respiratory distress Chest status: Nontender Breath sounds: Normal Chest palpation: Normal - Cardiovascular Rhythm: Regular Heart sounds: Normal auscultation Murmur: No - Abdominal Inspection: Normal Distension: No distension Bowel sounds: Normal Tenderness: Nontender Organomegaly: No organomegaly - Back Back: Normal, Tender - left lumbar muscle - Extremities General upper extremity: Normal inspection, Nontender, Normal color, Normal ROM , Normal temperature General lower extremity: Normal inspection, Nontender, Normal color, Normal ROM , Normal temperature, Normal weight bearing. No: Yoel's sign Notes: 2+ gerardo dp - Neurological Neuro grossly intact: Yes Cognition: Normal Orientation: AAOx4 Naren Coma Scale Eye Opening: Spontaneous [place] Coma Scale Verbal: Oriented [place] Coma Scale Motor: Obeys Commands Naren Coma Scale Total: 15 Speech: Normal Motor strength normal: LUE, RUE, LLE, RLE Sensory: Normal - Psychological Associated symptoms: Normal affect, Normal mood - Skin Skin Temperature: Warm Skin Moisture: Dry Skin Color: Normal Skin irregularity: negative: Rash Course - Re-evaluation Re-evalutation: 06/16/17 18:13 Urine specific gravity was 1.037 with no signs of infection. Serum osmolality was normal at 295. CBC is negative. Original serum glucose was 525. Patient is drinking ice water and eating a few crackers she feels a lot better after the Reglan and Benadryl. Her glucose went down to 325 after 1 liter the second liter is infusing and she feels like she can go home. - Vital Signs Vital signs: Temp Pulse Resp BP Pulse Ox 97.7 F 81 16 111/72 96 06/16/17 18:36 06/16/17 18:36 06/16/17 18:36 06/16/17 18:36 06/16/17 18:36 - Laboratory Result Diagrams: 06/16/17 15:05 06/16/17 15:05 Laboratory results interpreted by me: 06/16/17 06/16/17 06/16/17 15:05 15:05 16:30 RBC 5.38 H Sodium 132.7 L Chloride 89 L Glucose 512 H* POC Glucose Albumin 5.1 H Urine Glucose (UA) >=500 H Urine Ketones 20 H Ur Leukocyte Esterase MODERATE H 06/16/17 17:16 RBC Sodium Chloride Glucose POC Glucose 325 H Albumin Urine Glucose (UA) Urine Ketones Ur Leukocyte Esterase Discharge - Discharge Clinical Impression: Dehydration, Hyperglycemia, diarrhea Nausea & vomiting Qualifiers: Vomiting type: unspecified Vomiting Intractability: non-intractable Qualified Code(s): R11.2 - Nausea with vomiting, unspecified Condition: Good Disposition: HOME, SELF-CARE Instructions: Antinausea Medication ([facility]), Diarrhea, Nonspecific ([facility]), Intravenous (IV) Fluids ([facility]), Vomiting ([facility]), Vomiting, or Child ([facility]) Additional Instructions: plenty of water to continue hydrating tonight take your insulin with snack tonight to er if worse advance diet as tolerated see your doctor tomorrow for recheck. Prescriptions: Metoclopramide HCl [Reglan 10 mg Tablet] 10 mg PO ACHS #20 tablet Forms: Return to Work
[2017-06-16 16:47] LABS: APPEARANCE,URINE CLEAR; BILIRUBIN,URINE NEGATIVE (NEGATIVE); COLOR,URINE STRAW; GLUCOSE, URINE >=500 mg/dL (NEGATIVE); KETONES,URINE 20 mg/dL (NEGATIVE); LEUKOCYTE ESTERASE,URINE MODERATE (NEGATIVE); NITRITE,URINE NEGATIVE (NEGATIVE); PROTEIN,URINE NEGATIVE (NEGATIVE); URINE SPECIFIC GRAVITY 1.037; UROBILINOGEN,URINE NEGATIVE mg/dL (<2.0)
[2017-06-16] MEDS ORDERED: DIPHENHYDRAMINE HCL 50 MG/ML VIAL IV ONE (17:05)
[2017-06-16] MEDS ORDERED: METOCLOPRAMIDE HCL INJ/PF 10 MG/2 ML SDV IV ONE (17:05)
[2017-06-16 18:43] VITALS: BP 111/72
== END 2017-06-16 19:32 | disposition home or self-care (01) ==
LOC: ER 14:13
DX: E11.65 Type 2 diabetes mellitus with hyperglycemia (principal); E11.43 Type 2 diabetes mellitus with diabetic autonomic (poly)neuropathy; E11.40 Type 2 diabetes mellitus with diabetic neuropathy, unspecified; K31.84 Gastroparesis; R11.2 Nausea with vomiting, unspecified; R19.7 Diarrhea, unspecified; E86.0 Dehydration; I10 Essential (primary) hypertension; M54.5 Low back pain; G89.29 Other chronic pain; J45.909 Unspecified asthma, uncomplicated; Z88.0 Allergy status to penicillin; Z88.1 Allergy status to other antibiotic agents; Z91.041 Radiographic dye allergy status; Z88.2 Allergy status to sulfonamides; Z88.8 Allergy status to other drugs, medicaments and biological substances; Z85.41 Personal history of malignant neoplasm of cervix uteri
CPT/HCPCS: 99284; 96361; 96374; 96375; 36415; 87086; 82962; 83690; 83930; 85025; 87088; 80053; 81001; J1200; S0119; J2765; J2270; J7030

== ENCOUNTER 2017-06-19 12:13 | Emergency (ER) | payer SELFPAY ==
[2017-06-19] MEDS ORDERED: ONDANSETRON HCL INJ/PF 4 MG/2 ML SDV IV ONE (12:29)
[2017-06-19] MEDS ORDERED: NORMAL SALINE 1000 ML 1,000 ML IV ONE ×2 (12:29→14:55)
[2017-06-19] MEDS ORDERED: METOCLOPRAMIDE HCL INJ/PF 10 MG/2 ML SDV IV ONE (12:47)
--- NOTE | 2017-06-19 12:49 | ER Document Report ---
ED General - General Chief Complaint: Abdominal Pain Stated Complaint: ABDOMINAL PAIN,VOMITING,DIARRHEA Time Seen by Provider: 06/19/17 12:28 Mode of Arrival: Ambulatory Information source: Patient Notes: 57-year-old female presents with complaints of one-week duration nausea vomiting diarrhea. Patient notes she has vomited 10 times had 8 episodes of diarrhea. Patient notes the symptoms have not improved. She was seen here on Friday denies any fevers or chills. Patient notes the pain is in the left upper quadrant epigastric and right lower quadrant regions TRAVEL OUTSIDE OF THE [place] IN LAST 30 DAYS: No - HPI Onset: Last week Onset/Duration: Persistent Quality of pain: Cramping Severity: Mild Pain Level: 1 Associated symptoms: Diarrhea, Nausea, Vomiting Exacerbated by: Denies Relieved by: Denies Similar symptoms previously: Yes Recently seen / treated by doctor: Yes - Related Data Allergies/Adverse Reactions: Penicillins Allergy (Unknown, Verified 06/19/17 12:15) cephalexin monohydrate [From Keflex] Allergy (Verified 06/19/17 12:15) ciprofloxacin [From Cipro] Allergy (Verified 06/19/17 12:15) Iodinated Contrast- Oral and IV Dye [IV Dye, Iodine Containing] Allergy ( Verified 06/19/17 12:15) latex [Latex] Allergy (Verified 06/19/17 12:15) metformin Allergy (Verified 06/19/17 12:15) nitrofurantoin macrocrystalline [From Macrodantin] Allergy (Verified 06/19/17 12 :15) penicillin G Allergy (Verified 06/19/17 12:15) Sulfa (Sulfonamide Antibiotics) Allergy (Verified 06/19/17 12:15) tetracycline [Tetracycline] Allergy (Verified 06/19/17 12:15) nitroglycerin [From Nitrostat] Adverse Reaction (Verified 06/19/17 12:15) Past Medical History - Social History Smoking Status: Never Smoker Cigarette use (# per day): No Chew tobacco use (# tins/day): No Smoking Education Provided: No Frequency of alcohol use: None Drug Abuse: None Family History: Arthritis, CVA, DM, Hyperlipidemia, Hypertension, Malignancy, Thyroid Disfunction Patient has suicidal ideation: No Patient has homicidal ideation: No - Past Medical History Cardiac Medical History: Reports: Hx Hypercholesterolemia, Hx Hypertension Pulmonary Medical History: Reports: Hx Asthma Neurological Medical History: Reports: Hx Cerebrovascular Accident, Hx Migraine Endocrine Medical History: Reports: Hx Diabetes Mellitus Type 1, Hx Diabetes Mellitus Type 2 - gastroparesis. Denies: Hx Hyperthyroidism, Hx Hypothyroidism Renal/ Medical History: Denies: Hx Peritoneal Dialysis Malignancy Medical History: Reports: Hx Cervical Cancer GI Medical History: Reports: Hx Gastroesophageal Reflux Disease. Denies: Hx Cirrhosis, Hx Hepatitis Musculoskeltal Medical History: Reports Hx Arthritis, Reports Hx Fibromyalgia, Reports Hx Musculoskeletal Deformity, Reports Hx Musculoskeletal Trauma Psychiatric Medical History: Reports: Hx Anxiety, Hx Depression Traumatic Medical History: Reports: Hx Fractures - Facial fractures Infectious Medical History: Denies: Hx Hepatitis Past Surgical History: Reports: Hx Abdominal Surgery - hernia, Hx Section - 2, Hx Cholecystectomy, Hx Hysterectomy, Hx Orthopedic Surgery - bilateral toes and elbows left knee twice, Hx Tubal Ligation, Other - Ventral hernia and pseudocyst removal. Denies: Hx Appendectomy - Immunizations Immunizations up to date: Yes Hx Diphtheria, Pertussis, Tetanus Vaccination: Yes Review of Systems - Review of Systems Notes: REVIEW OF SYSTEMS: CONSTITUTIONAL : Denies fever, chills, or sweats. Denies recent illness. EENT: Denies eye, ear, throat, or mouth pain or symptoms. Denies nasal or sinus congestion or discharge. Denies throat, tongue, or mouth swelling or difficulty swallowing. CARDIOVASCULAR: Denies chest pain. Denies palpitations or racing or irregular heart beat. Denies ankle edema. RESPIRATORY: Denies cough, cold, or chest congestion. Denies shortness of breath, difficulty breathing, or wheezing. GASTROINTESTINAL: Medicine nausea vomiting diarrhea GENITOURINARY: Denies difficulty urinating, painful urination, burning, frequency, blood in urine, or discharge. FEMALE GENITOURINARY: Denies vaginal bleeding, heavy or abnormal periods, irregular periods. Denies vaginal discharge or odor. MUSCULOSKELETAL: Denies back or neck pain or stiffness. Denies joint pain or swelling. SKIN: Denies rash, lesions or sores. HEMATOLOGIC : Denies easy bruising or bleeding. LYMPHATIC: Denies swollen, enlarged glands. NEUROLOGICAL: Denies confusion or altered mental status. Denies passing out or loss of consciousness. Denies dizziness or lightheadedness. Denies headache. Denies weakness or paralysis or loss of use of either side. Denies problems with gait or speech. Denies sensory loss, numbness, or tingling. Denies seizures. PSYCHIATRIC: Denies anxiety or stress. Denies depression, suicidal ideation, or homicidal ideation. ALL OTHER SYSTEMS REVIEWED AND NEGATIVE. PHYSICAL EXAMINATION: GENERAL: Well-appearing, well-nourished and in no acute distress. HEAD: Atraumatic, normocephalic. EYES: Pupils equal round and reactive to light, extraocular movements intact, conjunctiva are normal. ENT: Nares patent, oropharynx clear without exudates. Moist mucous membranes. NECK: Normal range of motion, supple without lymphadenopathy LUNGS: Breath sounds clear to auscultation bilaterally and equal. No wheezes rales or rhonchi. HEART: Regular rate and rhythm without murmurs ABDOMEN: Soft, minimally tender in the epigastric left upper quadrant and right lower quadrant nondistended abdomen. No guarding, no rebound. No masses appreciated. Female : deferred Musculoskeletal: Normal range of motion, no pitting or edema. No cyanosis. NEUROLOGICAL: Cranial nerves grossly intact. Normal speech, normal gait. Normal sensory, motor exams PSYCH: Normal mood, normal affect. SKIN: Warm, Dry, normal turgor, no rashes or lesions noted. Dictation was performed using [employer] voice recognition software Physical Exam - Vital signs Vitals: Temp Pulse Resp BP Pulse Ox 98.1 F 80 14 122/80 98 06/19/17 12:19 06/19/17 12:19 06/19/17 12:19 06/19/17 12:19 06/19/17 12:19 Course - Re-evaluation Re-evalutation: 06/19/17 12:48 Patient has probable viral gastro-enteritis however given second visit in a week imaging for the lab work has been ordered 06/19/17 15:25 Laboratory notes hyperglycemia, fluids have been ordered. CT noted no significant abnormality. This appears to be viral gastroenteritis in nature After performing a Medical Screening Examination, I estimate there is LOW risk for ACUTE APPENDICITIS, BOWEL OBSTRUCTION, ACUTE CHOLECYSTITIS, PERFORATED DIVERTICULITIS, INCARCERATED HERNIA, PANCREATITIS, PELVIC INFLAMMATORY DISEASE, PERFORATED ULCER, ECTOPIC , or TUBO-OVARIAN ABSCESS, thus I consider the discharge disposition reasonable. Also, there is no evidence or peritonitis , sepsis, or toxicity. I have reevaluated this patient multiple times and no significant life threatening changes are noted. The patient and I have discussed the diagnosis and risks, and we agree with discharging home with close follow-up with the understanding that symptoms and presentations can change. We also discussed returning to the Emergency Department immediately if new or worsening symptoms occur. We have discussed the symptoms which are most concerning (e.g., bloody stool, fever, changing or worsening pain, vomiting) that necessitate immediate return. - Vital Signs Vital signs: Temp Pulse Resp BP Pulse Ox 98.1 F 80 14 122/80 98 06/19/17 12:19 06/19/17 12:19 06/19/17 12:19 06/19/17 12:19 06/19/17 12:19 - Laboratory Result Diagrams: 06/19/17 13:10 06/19/17 13:10 Laboratory results interpreted by me: 06/19/17 06/19/17 13:10 14:30 Sodium 135.9 L Chloride 96 L Carbon Dioxide 32 H Glucose 350 H Calcium 10.4 H ALT 54 H Urine Glucose (UA) >=500 H Urine Ketones 20 H - Diagnostic Test Radiology reviewed: Image reviewed, Reports reviewed Discharge - Discharge Clinical Impression: Hyperglycemia Nausea & vomiting Qualifiers: Vomiting type: unspecified Vomiting Intractability: non-intractable Qualified Code(s): R11.2 - Nausea with vomiting, unspecified Condition: Stable Disposition: HOME, SELF-CARE Instructions: Diarrhea, Nonspecific ([facility]), Vomiting ([facility]) Additional Instructions: REVIEW OF SYSTEMS: CONSTITUTIONAL : Denies fever, chills, or sweats. Denies recent illness. EENT: Denies eye, ear, throat, or mouth pain or symptoms. Denies nasal or sinus congestion or discharge. Denies throat, tongue, or mouth swelling or difficulty swallowing. CARDIOVASCULAR: Denies chest pain. Denies palpitations or racing or irregular heart beat. Denies ankle edema. RESPIRATORY: Denies cough, cold, or chest congestion. Denies shortness of breath, difficulty breathing, or wheezing. GASTROINTESTINAL: Denies abdominal pain or distention. Denies nausea, vomiting , or diarrhea. Denies blood in vomitus, stools, or per rectum. Denies black, tarry stools. Denies constipation. GENITOURINARY: Denies difficulty urinating, painful urination, burning, frequency, blood in urine, or discharge. FEMALE GENITOURINARY: Denies vaginal bleeding, heavy or abnormal periods, irregular periods. Denies vaginal discharge or odor. MUSCULOSKELETAL: Denies back or neck pain or stiffness. Denies joint pain or swelling. SKIN: Denies rash, lesions or sores. HEMATOLOGIC : Denies easy bruising or bleeding. LYMPHATIC: Denies swollen, enlarged glands. NEUROLOGICAL: Denies confusion or altered mental status. Denies passing out or loss of consciousness. Denies dizziness or lightheadedness. Denies headache. Denies weakness or paralysis or loss of use of either side. Denies problems with gait or speech. Denies sensory loss, numbness, or tingling. Denies seizures. PSYCHIATRIC: Denies anxiety or stress. Denies depression, suicidal ideation, or homicidal ideation. ALL OTHER SYSTEMS REVIEWED AND NEGATIVE. PHYSICAL EXAMINATION: GENERAL: Well-appearing, well-nourished and in no acute distress. HEAD: Atraumatic, normocephalic. EYES: Pupils equal round and reactive to light, extraocular movements intact, conjunctiva are normal. ENT: Nares patent, oropharynx clear without exudates. Moist mucous membranes. NECK: Normal range of motion, supple without lymphadenopathy LUNGS: Breath sounds clear to auscultation bilaterally and equal. No wheezes rales or rhonchi. HEART: Regular rate and rhythm without murmurs ABDOMEN: Soft, nontender, nondistended abdomen. No guarding, no rebound. No masses appreciated. Female : deferred Musculoskeletal: Normal range of motion, no pitting or edema. No cyanosis. NEUROLOGICAL: Cranial nerves grossly intact. Normal speech, normal gait. Normal sensory, motor exams PSYCH: Normal mood, normal affect. SKIN: Warm, Dry, normal turgor, no rashes or lesions noted. Dictation was performed using [employer] voice recognition software Prescriptions: Promethazine HCl [Phenergan 25 mg Tablet] 25 - 50 mg PO ASDIR PRN #12 tablet PRN Reason:
[2017-06-19 13:17] LABS: ABSOLUTE BASOPHILS # (AUTO) 0.1 10^3/uL (0.0-0.2); ABSOLUTE EOSINOPHILS # (AUTO) 0.1 10^3/uL (0.0-0.6); ABSOLUTE LYMPHOCYTES (AUTO) 2.1 10^3/uL (0.5-4.7); ABSOLUTE MONOCYTES (AUTO) 0.5 10^3/uL (0.1-1.4); ABSOLUTE NEUT (AUTO) 5.1 10^3/uL (1.7-8.2); BASOPHILS % (AUTO) 1.1 % (0-2); EOSINOPHILS % (AUTO) 1.5 % (0-6); HEMATOCRIT 41.7 % (36.0-47.0); HEMOGLOBIN 14.3 g/dL (12.0-15.5); LYMPHOCYTES % (AUTO) 26.5 % (13-45); MEAN CORPUSCULAR HEMOGLOBIN 27.9 pg (27.0-33.4); MEAN CORPUSCULAR HGB CONC 34.4 g/dL (32.0-36.0); MEAN CORPUSCULAR VOLUME 81 fl (80-97); MONOCYTES % (AUTO) 6.5 % (3-13); PLATELET COUNT 282 10^3/uL (150-450); RED BLOOD COUNT 5.14 10^6/uL (3.72-5.28); RED CELL DISTRIBUTION WIDTH 13.5 % (11.5-14.0); SEGMENTED NEUTROPHILS % (AUTO) 64.4 % (42-78); TOTAL CELLS COUNTED % (AUTO) 100 %; WHITE BLOOD COUNT 7.9 10^3/uL (4.0-10.5)
[2017-06-19 13:34] LABS: ALANINE AMINOTRANSFERASE 54 U/L (9-52); ALBUMIN 4.6 g/dL (3.5-5.0); ALKALINE PHOSPHATASE 74 U/L (38-126); ANION GAP 8 (5-19); ASPARTATE AMINO TRANSFERASE 25 U/L (14-36); BILIRUBIN,DIRECT 0.3 mg/dL (0.0-0.4); BILIRUBIN,TOTAL 0.7 mg/dL (0.2-1.3); BLOOD UREA NITROGEN 10 mg/dL (7-20); CALCIUM 10.4 mg/dL (8.4-10.2); CARBON DIOXIDE 32 mmol/L (22-30); CHLORIDE 96 mmol/L (98-107); GLUCOSE 350 mg/dL (75-110); POTASSIUM 4.4 mmol/L (3.6-5.0); SODIUM 135.9 mmol/L (137-145); TOTAL PROTEIN 7.1 g/dL (6.3-8.2)
[2017-06-19 14:46] LABS: APPEARANCE,URINE CLEAR; BILIRUBIN,URINE NEGATIVE (NEGATIVE); COLOR,URINE STRAW; GLUCOSE, URINE >=500 mg/dL (NEGATIVE); KETONES,URINE 20 mg/dL (NEGATIVE); LEUKOCYTE ESTERASE,URINE NEGATIVE (NEGATIVE); NITRITE,URINE NEGATIVE (NEGATIVE); PROTEIN,URINE NEGATIVE (NEGATIVE); URINE SPECIFIC GRAVITY 1.051; UROBILINOGEN,URINE NEGATIVE mg/dL (<2.0)
--- NOTE | 2017-06-19 14:55 | RADIOLOGY REPORT (SQ) ---
EXAM DESCRIPTION: CT ABD/PELVIS WITH IV ONLY COMPLETED DATE/TIME: 06/19/2017 2:20 pm REASON FOR STUDY: RLQ pain , vomiting diarrhea COMPARISON: None. TECHNIQUE: CT scan of the abdomen and pelvis performed using helical scanning technique with dynamic intravenous contrast injection. No oral contrast. Images reviewed with lung, soft tissue, and bone windows. Reconstructed coronal and sagittal MPR images reviewed. Delayed images for evaluation of the urinary system also acquired. All images stored on PACS. All CT scanners at this facility use dose modulation, iterative reconstruction, and/or weight based d osing when appropriate to reduce radiation dose to as low as reasonably achievable (ALARA). [facility]: Dose Right [facility]: CareDose [facility]: Dose Right [facility]: Teradose 4D [facility]: [employer] CONTRAST TYPE AND DOSE: contrast/concentration: Isovue 370.00 mg/ml; Total Contrast Delivered: 79.0 ml; Total Saline Delivered: 65.0 ml RENAL FUNCTION: Creatinine 0.54 RADIATION DOSE: CT Rad equipment meets quality standard of care and radiation dose reduction techniq ues were employed. CTDIvol: 8.9 - 13.0 mGy. DLP: 1243 mGy-cm.. LIMITATIONS: None. FINDINGS: LOWER CHEST: No significant findings. No nodules or infiltrates. LIVER: Normal size. No masses. No dilated ducts. There is mild fatty infiltration of the liver. SPLEEN: Normal size. No focal lesions. PANCREAS: No masses. No significant calcifications. No adjacent inflammation or peripancreatic fluid collections. Pancreatic duct not dilated. GALLBLADDER: Status post cholecystectomy. ADRENAL GLANDS: No significant masses or asymmetry. RIGHT KIDNEY AND URETER: No solid masses. No significant calcifications. No hydronephrosis or hyd roureter. LEFT KIDNEY AND URETER: No solid masses. No significant calcifications. No hydronephrosis or hydr oureter. AORTA AND VESSELS: No aneurysm. No dissection. Renal arteries, SMA, celiac without stenosis. RETROPERITONEUM: No retroperitoneal adenopathy, hemorrhage or masses. BOWEL AND PERITONEAL CAVITY: No masses or inflammatory changes. No free fluid or peritoneal masses. Scattered colonic diverticula are identified in the descending and sigmoid colon APPENDIX: Normal. PELVIS: No mass. No free fluid. Normal bladder. ABDOMINAL WALL: No masses. No hernias. BONES: No significant or acute findings. OTHER: No other significant finding. IMPRESSION: NO SIGNIFICANT OR ACUTE FINDING IN THE ABDOMEN OR PELVIS ON CT SCAN WITH IV CONTRAST. TECHNICAL DOCUMENTATION: JOB ID: [id number] Quality ID # [id number]: Final reports with documentation of one or more dose reduction techniques (e.g., Au tomated exposure control, adjustment of the mA and/or kV according to patient size, use of iterative reconstruction technique) 2010 [employer]- All Rights Reserved
[2017-06-19 16:14] VITALS: BP 143/79
== END 2017-06-19 16:14 | disposition home or self-care (01) ==
LOC: ER 12:13
DX: E11.65 Type 2 diabetes mellitus with hyperglycemia (principal); R11.2 Nausea with vomiting, unspecified; R19.7 Diarrhea, unspecified; R10.12 Left upper quadrant pain; R10.13 Epigastric pain; R10.31 Right lower quadrant pain
CPT/HCPCS: 99284; 96361; 96374; 96375; 36415; 82962; 83690; 84703; 85025; 80053; 81001; 74177; J2765; J2405; J7030

== ENCOUNTER 2017-08-28 15:41 | Emergency (ER) | payer SELFPAY ==
[2017-08-28 15:49] VITALS: BP 137/79
[2017-08-28] MEDS ORDERED: LIDOCAINE 5% (700 MG) TRANSDERMAL ADH..PATCH TP ONE (16:58)
[2017-08-28] MEDS ORDERED: HYDROCODONE/ACETAMINOPHEN 5-325 MG TABLET PO ONE (16:58)
--- NOTE | 2017-08-28 17:03 | ER Document Report ---
HPI - HPI Patient complains to provider of: Low back pain Onset: This morning Onset/Duration: Gradual Quality of pain: Sharp Pain Level: 5 Context: Patient complains of a flareup of her chronic back pain that started at 11 AM today. Patient states she took Advil without relief of her symptoms. Patient denies any radiculopathy or paresthesia. Patient denies any fever, urinary retention or incontinence. Patient denies any new injury. Patient states pain is in location where she has had chronic back pain in the past. Associated Symptoms: Other - Low back pain. denies: Fever Exacerbated by: Movement Relieved by: Denies Similar symptoms previously: Yes Recently seen / treated by doctor: No - ROS ROS below otherwise negative: Yes Systems Reviewed and Negative: Yes All other systems reviewed and negative - CONSTITUTIONAL Constitutional: DENIES: Fever - NEURO Neurology: DENIES: Headache, Weakness - REPRODUCTIVE Reproductive: DENIES: : - MUSCULOSKELETAL Musculoskeletal: REPORTS: Back Pain. DENIES: Extremity pain - DERM Skin Problems: None Past Medical History - General Information source: Patient - Social History Smoking Status: Never Smoker Chew tobacco use (# tins/day): No Frequency of alcohol use: None Drug Abuse: None Occupation: None Family History: Arthritis, CVA, DM, Hyperlipidemia, Hypertension, Malignancy, Thyroid Disfunction Patient has suicidal ideation: No Patient has homicidal ideation: No - Past Medical History Cardiac Medical History: Reports: Hx Hypercholesterolemia, Hx Hypertension Pulmonary Medical History: Reports: Hx Asthma Neurological Medical History: Reports: Hx Cerebrovascular Accident, Hx Migraine Endocrine Medical History: Reports: Hx Diabetes Mellitus Type 1, Hx Diabetes Mellitus Type 2 - gastroparesis. Denies: Hx Hyperthyroidism, Hx Hypothyroidism Renal/ Medical History: Denies: Hx Peritoneal Dialysis Malignancy Medical History: Reports: Hx Cervical Cancer GI Medical History: Reports: Hx Gastroesophageal Reflux Disease. Denies: Hx Cirrhosis, Hx Hepatitis Musculoskeltal Medical History: Reports Hx Arthritis, Reports Hx Fibromyalgia, Reports Hx Musculoskeletal Deformity, Reports Hx Musculoskeletal Trauma Psychiatric Medical History: Reports: Hx Anxiety, Hx Depression Traumatic Medical History: Reports: Hx Fractures - Facial fractures Infectious Medical History: Denies: Hx Hepatitis Past Surgical History: Reports: Hx Abdominal Surgery - hernia, Hx Section - 2, Hx Cholecystectomy, Hx Hysterectomy, Hx Orthopedic Surgery - bilateral toes and elbows left knee twice, Hx Tubal Ligation, Other - Ventral hernia and pseudocyst removal. Denies: Hx Appendectomy - Immunizations Immunizations up to date: Yes Hx Diphtheria, Pertussis, Tetanus Vaccination: Yes Vertical Provider Document - CONSTITUTIONAL Agree With Documented VS: Yes Exam Limitations: No Limitations General Appearance: WD/WN, No Apparent Distress - INFECTION CONTROL TRAVEL OUTSIDE OF THE [place] IN LAST 30 DAYS: No - HEENT HEENT: Atraumatic, Normocephalic - NECK Neck: Normal Inspection - RESPIRATORY Respiratory: Breath Sounds Normal, No Respiratory Distress - CARDIOVASCULAR Cardiovascular: Regular Rate, Regular Rhythm - GI/ABDOMEN Gastrointestinal: Abdomen Soft - BACK Back: Abnormal Inspection - Lower lumbar tenderness, lumbar paraspinal tenderness, no deformity or step-off - MUSCULOSKELETAL/EXTREMETIES Musculoskeletal/Extremeties: MAEW, FROM Notes: Normal gait, no foot drop - NEURO Level of Consciousness: Awake, Alert, Appropriate Motor/Sensory: No Motor Deficit, No Sensory Deficit Notes: Normal gait, no footdrop, no saddle anesthesia, negative straight leg test - DERM Integumentary: Warm, Dry, No Rash Course - Re-evaluation Re-evalutation: 08/28/17 17:01 The patient presents with low back pain without signs of spinal cord compression , cauda equina syndrome, infection, aneurysm, or other serious etiology. The patient is neurologically intact. Given the extremely risk of these diagnoses further testing and evaluation for these possibilities does not appear to be indicated at this time. Patient has been instructed to return if the symptoms worsen or change in any way. Controlled substance database reviewed. - Vital Signs Vital signs: Temp Pulse Resp BP Pulse Ox 97.7 F 80 20 137/79 H 98 08/28/17 15:46 08/28/17 15:46 08/28/17 15:46 08/28/17 15:46 08/28/17 15:46 Discharge - Discharge Clinical Impression: Chronic low back pain Qualifiers: Back pain laterality: unspecified Sciatica presence: without sciatica Qualified Code(s): M54.5 - Low back pain Condition: Stable Disposition: HOME, SELF-CARE Instructions: Ice Packs ([facility]), Low Back Pain ([facility]), Oral Narcotic Medication ( [facility]) Additional Instructions: Return immediately for any new or worsening symptoms Followup with your primary care provider, call tomorrow to make a followup appointment Prescriptions: Hydrocodone/Acetaminophen [[place] 5-325 Tablet] 1 each PO Q6 PRN #12 tablet PRN Reason: Referrals: [facility] [Provider Group] - Follow up as needed [facility] [Provider Group] - Follow up as needed
== END 2017-08-28 17:15 | disposition home or self-care (01) ==
LOC: ER 15:41
DX: G89.29 Other chronic pain (principal); M54.5 Low back pain; I10 Essential (primary) hypertension; J45.909 Unspecified asthma, uncomplicated; E11.9 Type 2 diabetes mellitus without complications; Z85.41 Personal history of malignant neoplasm of cervix uteri
CPT/HCPCS: 99283

== ENCOUNTER 2017-09-08 16:32 | Emergency (ER) | payer SELFPAY ==
[2017-09-08] MEDS ORDERED: HYDROCODONE/ACETAMINOPHEN 5-325 MG TABLET PO ONE (17:41)
--- NOTE | 2017-09-08 17:42 | ER Document Report ---
ED Medical Screen (RME) - General Chief Complaint: Vaginal Pain Stated Complaint: VAGINAL PAIN Time Seen by Provider: 09/08/17 17:39 Notes: Patient reports several days of vaginal pain and "cysts" that are on the lips of her vaginal area. She denies being sexually active recently. She denies any history of 60 transmitted diseases. TRAVEL OUTSIDE OF THE [place] IN LAST 30 DAYS: No - Related Data Allergies/Adverse Reactions: Penicillins Allergy (Unknown, Verified 09/08/17 16:35) cephalexin monohydrate [From Keflex] Allergy (Verified 09/08/17 16:35) ciprofloxacin [From Cipro] Allergy (Verified 09/08/17 16:35) Iodinated Contrast- Oral and IV Dye [IV Dye, Iodine Containing] Allergy ( Verified 09/08/17 16:35) latex [Latex] Allergy (Verified 09/08/17 16:35) metformin Allergy (Verified 09/08/17 16:35) nitrofurantoin macrocrystalline [From Macrodantin] Allergy (Verified 09/08/17 16 :35) penicillin G Allergy (Verified 09/08/17 16:35) Sulfa (Sulfonamide Antibiotics) Allergy (Verified 09/08/17 16:35) tetracycline [Tetracycline] Allergy (Verified 09/08/17 16:35) nitroglycerin [From Nitrostat] Adverse Reaction (Verified 09/08/17 16:35) Past Medical History - Social History Chew tobacco use (# tins/day): No Frequency of alcohol use: None Drug Abuse: None Family history: Reviewed & Not Pertinent - Past Medical History Cardiac Medical History: Reports: Hx Hypercholesterolemia, Hx Hypertension Pulmonary Medical History: Reports: Hx Asthma Neurological Medical History: Reports: Hx Cerebrovascular Accident, Hx Migraine Endocrine Medical History: Reports: Hx Diabetes Mellitus Type 1, Hx Diabetes Mellitus Type 2 - gastroparesis. Denies: Hx Hyperthyroidism, Hx Hypothyroidism Renal/ Medical History: Denies: Hx Peritoneal Dialysis Malignancy Medical History: Reports: Hx Cervical Cancer GI Medical History: Reports: Hx Gastroesophageal Reflux Disease. Denies: Hx Cirrhosis, Hx Hepatitis Musculoskeltal Medical History: Reports Hx Arthritis, Reports Hx Fibromyalgia, Reports Hx Musculoskeletal Deformity, Reports Hx Musculoskeletal Trauma Psychiatric Medical History: Reports: Hx Anxiety, Hx Depression Traumatic Medical History: Reports: Hx Fractures - Facial fractures Infectious Medical History: Denies: Hx Hepatitis Past Surgical History: Reports: Hx Abdominal Surgery - hernia, Hx Section - 2, Hx Cholecystectomy, Hx Hysterectomy, Hx Orthopedic Surgery - bilateral toes and elbows left knee twice, Hx Tubal Ligation, Other - Ventral hernia and pseudocyst removal. Denies: Hx Appendectomy - Immunizations Immunizations up to date: Yes Hx Diphtheria, Pertussis, Tetanus Vaccination: Yes Physical Exam - Vital signs Vitals: Temp Pulse Resp BP Pulse Ox 97.9 F 88 20 147/74 H 96 09/08/17 16:58 09/08/17 16:58 09/08/17 16:58 09/08/17 16:58 09/08/17 16:58 Course - Vital Signs Vital signs: Temp Pulse Resp BP Pulse Ox 97.9 F 88 20 147/74 H 96 09/08/17 16:58 09/08/17 16:58 09/08/17 16:58 09/08/17 16:58 09/08/17 16:58
[2017-09-08 18:35] LABS: APPEARANCE,URINE CLEAR; BILIRUBIN,URINE NEGATIVE (NEGATIVE); COLOR,URINE STRAW; GLUCOSE, URINE >=500 mg/dL (NEGATIVE); KETONES,URINE NEGATIVE (NEGATIVE); LEUKOCYTE ESTERASE,URINE NEGATIVE (NEGATIVE); NITRITE,URINE NEGATIVE (NEGATIVE); PROTEIN,URINE NEGATIVE (NEGATIVE); URINE SPECIFIC GRAVITY 1.033; UROBILINOGEN,URINE NEGATIVE mg/dL (<2.0)
[2017-09-08] MEDS ORDERED: LIDOCAINE 1% INJ-PF (10 MG/ML) 30 ML SDV INJ ONE (18:54)
--- NOTE | 2017-09-08 18:54 | ER Document Report ---
HPI - HPI Patient complains to provider of: abscess Pain Level: 5 Context: patient is a 57-year-old female who presents emergency department the chief complaint of vaginal pain. Patient states that she has 2 bumps that have been present for the past couple weeks but over the past couple of days of enlarged in size and became painful yesterday. She has any fevers or chills, active drainage. Denies any history of abscess, MRSA - REPRODUCTIVE Reproductive: DENIES: : - DERM Skin Color: Normal, [place] Past Medical History - Social History Smoking Status: Never Smoker Chew tobacco use (# tins/day): No Frequency of alcohol use: None Drug Abuse: None Family History: Arthritis, CVA, DM, Hyperlipidemia, Hypertension, Malignancy, Thyroid Disfunction Patient has suicidal ideation: No Patient has homicidal ideation: No - Past Medical History Cardiac Medical History: Reports: Hx Hypercholesterolemia, Hx Hypertension Pulmonary Medical History: Reports: Hx Asthma Neurological Medical History: Reports: Hx Cerebrovascular Accident, Hx Migraine Endocrine Medical History: Reports: Hx Diabetes Mellitus Type 1, Hx Diabetes Mellitus Type 2 - gastroparesis. Denies: Hx Hyperthyroidism, Hx Hypothyroidism Renal/ Medical History: Denies: Hx Peritoneal Dialysis Malignancy Medical History: Reports: Hx Cervical Cancer GI Medical History: Reports: Hx Gastroesophageal Reflux Disease. Denies: Hx Cirrhosis, Hx Hepatitis Musculoskeltal Medical History: Reports Hx Arthritis, Reports Hx Fibromyalgia, Reports Hx Musculoskeletal Deformity, Reports Hx Musculoskeletal Trauma Psychiatric Medical History: Reports: Hx Anxiety, Hx Depression Traumatic Medical History: Reports: Hx Fractures - Facial fractures Infectious Medical History: Denies: Hx Hepatitis Past Surgical History: Reports: Hx Abdominal Surgery - hernia, Hx Section - 2, Hx Cholecystectomy, Hx Hysterectomy, Hx Orthopedic Surgery - bilateral toes and elbows left knee twice, Hx Tubal Ligation, Other - Ventral hernia and pseudocyst removal. Denies: Hx Appendectomy - Immunizations Immunizations up to date: Yes Hx Diphtheria, Pertussis, Tetanus Vaccination: Yes Vertical Provider Document - CONSTITUTIONAL Agree With Documented VS: Yes Notes: PHYSICAL EXAM GENERAL: Alert, interacts well. FEMALE : External exam with evidence of tender, fluctuant areas one on each side in the measuring approximately 1-1/2 cm in diameter. Labia majora. NEUROLOGICAL: Alert and oriented x4. Normal speech. PSYCH: Normal affect, normal mood. SKIN: Warm, dry, normal turgor. No rashes or lesions noted. - INFECTION CONTROL TRAVEL OUTSIDE OF THE [place] IN LAST 30 DAYS: No Course - Re-evaluation Re-evalutation: 09/08/17 19:39 Patient is a 49-year-old female hemodynamic stable, no acute distress and afebrile. Presentation is consistent with abscess without associated cellulitis. I&D performed at the bedside. Patient to be sent home on Bactroban - Vital Signs Vital signs: Temp Pulse Resp BP Pulse Ox 97.9 F 88 20 147/74 H 96 09/08/17 16:58 09/08/17 16:58 09/08/17 16:58 09/08/17 16:58 09/08/17 16:58 - Laboratory Laboratory results interpreted by me: 09/08/17 17:05 Urine Glucose (UA) >=500 H Discharge - Discharge Clinical Impression: Abscess Condition: Good Disposition: HOME, SELF-CARE Instructions: Post Incision and Drainage, Abscess ([facility]), Bactroban Ointment ( [facility]) Prescriptions: Mupirocin Calcium [Bactroban 2% Cream 15 gm] 1 applic TP DAILY PRN 7 Days #1 tube PRN Reason: Referrals: [facility] [Provider Group] - Follow up in 3-5 days
[2017-09-08 19:54] VITALS: BP 122/75
== END 2017-09-08 19:53 | disposition home or self-care (01) ==
LOC: ER 16:32
DX: L02.91 Cutaneous abscess, unspecified (principal); I10 Essential (primary) hypertension; J45.909 Unspecified asthma, uncomplicated; E11.9 Type 2 diabetes mellitus without complications; Z85.41 Personal history of malignant neoplasm of cervix uteri
CPT/HCPCS: 99283; 81001; 10060; J3490

== ENCOUNTER 2017-09-29 17:49 | Emergency (ER) | payer SELFPAY ==
[2017-09-29] MEDS ORDERED: KETOROLAC TROMETHAMINE INJ/PF 30 MG/1 ML SDV IM ONE (18:20)
[2017-09-29] MEDS ORDERED: LIDOCAINE 5% (700 MG) TRANSDERMAL ADH..PATCH TP ONE (18:20)
--- NOTE | 2017-09-29 18:26 | ER Document Report ---
HPI - HPI Pain Level: 5 Notes: Patient is a 57-year-old female with a history of diabetes, gastroparesis, hypertension, peripheral neuropathy, chronic back pain who presents to the ED complaining of acute on chronic low back pain x 1 day w/o known injury. Patient states that she has back pain in this area chronically, but has been worsening today. Patient states that movement makes the pain worse. Patient states that the pain is midline and bilateral to the spine. The pain does not radiate. She is eating and drinking without any difficulties. She is urinating normally and having normal bowel movements. Patient has not had any injections or procedures to her lower back. She denies any previous history of spinal abscess. Patient states that she is ambulatory without any issues. Denies any headache, fever, URI, sore throat, chest pain, palpitations, syncope , cough, shortness of breath, wheeze, dyspnea, abdominal pain, nausea/vomiting/ diarrhea, urinary retention, dysuria, hematuria, loss of control of bowel or bladder, numbness/tingling, saddle anesthesia, muscle paralysis/weakness, or rash. - ROS Systems Reviewed and Negative: Yes All other systems reviewed and negative - REPRODUCTIVE Reproductive: DENIES: : Past Medical History - Social History Smoking Status: Former Smoker Family History: Arthritis, CVA, DM, Hyperlipidemia, Hypertension, Malignancy, Thyroid Disfunction - Past Medical History Cardiac Medical History: Reports: Hx Hypercholesterolemia, Hx Hypertension Pulmonary Medical History: Reports: Hx Asthma Neurological Medical History: Reports: Hx Cerebrovascular Accident, Hx Migraine Endocrine Medical History: Reports: Hx Diabetes Mellitus Type 1, Hx Diabetes Mellitus Type 2 - gastroparesis. Denies: Hx Hyperthyroidism, Hx Hypothyroidism Renal/ Medical History: Denies: Hx Peritoneal Dialysis Malignancy Medical History: Reports: Hx Cervical Cancer GI Medical History: Reports: Hx Gastroesophageal Reflux Disease. Denies: Hx Cirrhosis, Hx Hepatitis Musculoskeltal Medical History: Reports Hx Arthritis, Reports Hx Fibromyalgia, Reports Hx Musculoskeletal Deformity, Reports Hx Musculoskeletal Trauma Psychiatric Medical History: Reports: Hx Anxiety, Hx Depression Traumatic Medical History: Reports: Hx Fractures - Facial fractures Infectious Medical History: Denies: Hx Hepatitis Past Surgical History: Reports: Hx Abdominal Surgery - hernia, Hx Section - 2, Hx Cholecystectomy, Hx Hysterectomy, Hx Orthopedic Surgery - bilateral toes and elbows left knee twice, Hx Tubal Ligation, Other - Ventral hernia and pseudocyst removal. Denies: Hx Appendectomy - Immunizations Immunizations up to date: Yes Hx Diphtheria, Pertussis, Tetanus Vaccination: Yes Vertical Provider Document - CONSTITUTIONAL Agree With Documented VS: Yes Notes: PHYSICAL EXAMINATION: GENERAL: Well-appearing, well-nourished and in no acute distress. LUNGS: Breath sounds clear to auscultation bilaterally and equal. No wheezes rales or rhonchi. HEART: Regular rate and rhythm without murmurs, rubs, gallops. ABDOMEN: Soft, nontender, nondistended abdomen. No guarding, no rebound. No masses appreciated. Normal bowel sounds present. No CVA tenderness bilaterally. No pulsatile mass Musculoskeletal: LE's b/l: FROM to passive/active. Strength 5+/5. No deficits noted. No bony tenderness of extremities. Back: FROM to passive/active. Strength 5+/5. No vertebral point tenderness, stepoffs, or deformities. No other bony tenderness, erythema, swelling, or ecchymosis. SLR negative b/l. + mild tenderness to the L-paraspinal mm b/l. Mild spasming. No SI jt tenderness. No foot drop Extremities: No cyanosis, clubbing, or edema b/l. Peripheral pulses 2+. Capillary refill less than 2 seconds. NEUROLOGICAL: Normal speech, normal gait. Normal sensory, motor exams. Reflexes 2+ b/l. PSYCH: Normal mood, normal affect. SKIN: Warm, Dry, normal turgor, no rashes or lesions noted. - INFECTION CONTROL TRAVEL OUTSIDE OF THE [place] IN LAST 30 DAYS: No Course - Re-evaluation Re-evalutation: 09/29/17 18:26 Toradol and lidoderm patch ordered L spine XR ordered 09/29/17 19:50 Patient is an afebrile, well-hydrated, 57-year-old female who presents to the ED with acute on chronic low back pain. Vitals are acceptable. PE is otherwise unremarkable for any focal neurological deficits. X-ray was unremarkable for any acute pathology. Patient has no other than that flag symptoms. She is ambulatory without any difficulties. Toradol and Lidoderm patch given today. Low suspicion for any meningitis, fracture, expanding/ ruptured AAA, cauda equina syndrome, epidural mass lesion/abscess, herniated disc causing severe spinal stenosis, or other systemic infection at this time. Patient is aware that her condition can change from initial presentation and that she needs monitor symptoms closely for any acute changes. No other labs or imaging warranted at this time based on H&P. I will send her home with a prescription for naproxen and baclofen. Conservative measures otherwise for symptoms. Recheck with your PCM in 3-5 days. Consider consult with orthopedic/ physical therapy. Return to the ED with any worsening/concerning symptoms otherwise as reviewed discharge. Patient is in agreement. - Vital Signs Vital signs: Temp Pulse Resp BP Pulse Ox 97.7 F 84 16 146/85 H 96 09/29/17 17:55 09/29/17 17:55 09/29/17 17:55 09/29/17 17:55 09/29/17 17:55 Discharge - Discharge Clinical Impression: Low back pain Qualifiers: Chronicity: acute Back pain laterality: bilateral Sciatica presence: without sciatica Qualified Code(s): M54.5 - Low back pain Condition: Stable Disposition: HOME, SELF-CARE Instructions: Low Back Pain ([facility]), Stretching Exercises for the Back ([facility]) Additional Instructions: Rest, Ice, Compression, Elevation Use crutches/splint/sling as directed Tylenol/ibuprofen as needed Light stretches daily Strength exercises as able Moist heat and massage may help F/u with your PCP in 3-5 days for a recheck Consider consult(s) with Orthopedics/physical therapy for ongoing/worsening symptoms Return to the ED with any worsening symptoms and/or development of fever, headache, changes in behavior/mentation/vision/speech, chest pain, palpitations , syncope, shortness of breath, trouble breathing, abdominal pain, n/v/d, blood in stool/urine, loss of control of bowel/bladder, urinary retention, muscle weakness/paralysis, saddle anesthesia, numbness/tingling, or other worsening symptoms that are concerning to you. Prescriptions: Baclofen [Baclofen 10 mg Tablet] 5 - 10 mg PO BID PRN #10 tablet PRN Reason: Forms: Elevated Blood Pressure Referrals: [facility] [Provider Group] - Follow up as needed
--- NOTE | 2017-09-29 19:42 | RADIOLOGY REPORT (SQ) ---
EXAM DESCRIPTION: L SPINE WHOLE COMPLETED DATE/TIME: 09/29/2017 7:28 pm REASON FOR STUDY: Low back pain COMPARISON: None. NUMBER OF VIEWS: Five views including obliques. TECHNIQUE: AP, lateral, oblique, and sacral radiographic images acquired of the lumbar spine. LIMITATIONS: None. FINDINGS: MINERALIZATION: Normal. SEGMENTATION: Normal. No transitional anatomy. ALIGNMENT: Normal. VERTEBRAE: Maintained height. No fracture or worrisome bone lesion. DISCS: Preserved height. No significant osteophytes or end plate irregularity. POSTERIOR ELEMENTS: Pedicles and facets are intact. No pars defect or posterior arch defects. HARDWARE: None in the spine. PARASPINAL SOFT TISSUES: Normal. PELVIS: Intact as visualized. No fractures or worrisome bone lesions. SI joints intact. OTHER: No other significant finding. IMPRESSION: NORMAL 5 VIEW LUMBAR SPINE. TECHNICAL DOCUMENTATION: JOB ID: [id number] [employer]- All Rights Reserved Reading location - IP/workstation name: [email or web address]
[2017-09-29 20:22] VITALS: BP 167/87
== END 2017-09-29 20:23 | disposition home or self-care (01) ==
LOC: ER 17:49
DX: M54.5 Low back pain (principal); E78.00 Pure hypercholesterolemia, unspecified; I10 Essential (primary) hypertension; E11.9 Type 2 diabetes mellitus without complications; Z90.49 Acquired absence of other specified parts of digestive tract; Z90.710 Acquired absence of both cervix and uterus
CPT/HCPCS: 99283; 96372; 72110; J1885

== ENCOUNTER 2017-10-02 01:35 | Emergency (ER) | payer SELFPAY ==
[2017-10-02 02:13] LABS: APPEARANCE,URINE CLEAR; BILIRUBIN,URINE NEGATIVE (NEGATIVE); COLOR,URINE STRAW; GLUCOSE, URINE >=500 mg/dL (NEGATIVE); KETONES,URINE NEGATIVE (NEGATIVE); LEUKOCYTE ESTERASE,URINE TRACE (NEGATIVE); NITRITE,URINE NEGATIVE (NEGATIVE); PROTEIN,URINE NEGATIVE (NEGATIVE); URINE SPECIFIC GRAVITY 1.028; UROBILINOGEN,URINE NEGATIVE mg/dL (<2.0)
[2017-10-02] MEDS ORDERED: ASPIRIN 81 MG TABLET, CHEWABLE PO ONE (03:40)
[2017-10-02] MEDS ORDERED: LIDOCAINE 5% (700 MG) TRANSDERMAL ADH..PATCH TP ONE (03:41)
--- NOTE | 2017-10-02 03:42 | ER Document Report ---
ED General - General Chief Complaint: Flank Pain Stated Complaint: BACK PAIN/NAUSEA Time Seen by Provider: 10/02/17 03:24 Notes: Patient is a 57-year-old female presents emergency department with multiple complaints but chief complaint of lower back pain. Patient has a history of low back pain. His been taking naproxen for any significant improvement denies any urinary/stool incontinence, saddle anesthesia. She also admits to sudden onset chest pain approximately 1 AM she is initially sharp lasting for 20 minutes and now a consistent pressure which is a 3 out of 5 in severity. She states she does have a history of anxiety but she has feels that this chest pressure is a little more prominent than normal. Past medical history is significant for insulin-dependent diabetes, gastroparesis, depression, insomnia, hyperlipidemia, hypertension, neuropathy, history of pancreatitis, migraines, previous stroke, anxiety. Symptoms primary care due to recent loss of insurance TRAVEL OUTSIDE OF THE [place] IN LAST 30 DAYS: No - Related Data Allergies/Adverse Reactions: Penicillins Allergy (Unknown, Verified 09/08/17 16:35) cephalexin monohydrate [From Keflex] Allergy (Verified 09/08/17 16:35) ciprofloxacin [From Cipro] Allergy (Verified 09/08/17 16:35) Iodinated Contrast- Oral and IV Dye [IV Dye, Iodine Containing] Allergy ( Verified 09/08/17 16:35) latex [Latex] Allergy (Verified 09/08/17 16:35) metformin Allergy (Verified 09/08/17 16:35) nitrofurantoin macrocrystalline [From Macrodantin] Allergy (Verified 09/08/17 16 :35) penicillin G Allergy (Verified 09/08/17 16:35) Sulfa (Sulfonamide Antibiotics) Allergy (Verified 09/08/17 16:35) tetracycline [Tetracycline] Allergy (Verified 09/08/17 16:35) nitroglycerin [From Nitrostat] Adverse Reaction (Verified 09/08/17 16:35) Past Medical History - Social History Smoking Status: Former Smoker Family History: Arthritis, CVA, DM, Hyperlipidemia, Hypertension, Malignancy, Thyroid Disfunction - Past Medical History Cardiac Medical History: Reports: Hx Hypercholesterolemia, Hx Hypertension Pulmonary Medical History: Reports: Hx Asthma Neurological Medical History: Reports: Hx Cerebrovascular Accident, Hx Migraine Endocrine Medical History: Reports: Hx Diabetes Mellitus Type 1, Hx Diabetes Mellitus Type 2 - gastroparesis. Denies: Hx Hyperthyroidism, Hx Hypothyroidism Renal/ Medical History: Denies: Hx Peritoneal Dialysis Malignancy Medical History: Reports: Hx Cervical Cancer GI Medical History: Reports: Hx Gastroesophageal Reflux Disease. Denies: Hx Cirrhosis, Hx Hepatitis Musculoskeltal Medical History: Reports Hx Arthritis, Reports Hx Fibromyalgia, Reports Hx Musculoskeletal Deformity, Reports Hx Musculoskeletal Trauma Psychiatric Medical History: Reports: Hx Anxiety, Hx Depression Traumatic Medical History: Reports: Hx Fractures - Facial fractures Infectious Medical History: Denies: Hx Hepatitis Past Surgical History: Reports: Hx Abdominal Surgery - hernia, Hx Section - 2, Hx Cholecystectomy, Hx Hysterectomy, Hx Orthopedic Surgery - bilateral toes and elbows left knee twice, Hx Tubal Ligation, Other - Ventral hernia and pseudocyst removal. Denies: Hx Appendectomy - Immunizations Immunizations up to date: Yes Hx Diphtheria, Pertussis, Tetanus Vaccination: Yes Physical Exam - Vital signs Vitals: Temp Pulse Resp BP Pulse Ox 98.3 F 84 20 139/82 H 96 10/02/17 01:55 10/02/17 01:55 10/02/17 01:55 10/02/17 01:55 10/02/17 01:55 - Notes Notes: PHYSICAL EXAM GENERAL: Alert, interacts well. HEAD: Normocephalic, atraumatic. EYES: Pupils equal, round, and reactive to light. Extraocular movements intact. ENT: Oral mucosa moist, tongue midline. NECK: Full range of motion. Supple. Trachea midline. LUNGS: Clear to auscultation bilaterally, no wheezes, rales, or rhonchi. No respiratory distress. HEART: Regular rate and rhythm. No murmurs, gallops, or rubs. ABDOMEN: Soft, nondistended, nontender. No guarding, rebound, or rigidity.. Bowel sounds present in all 4 quadrants. EXTREMITIES: Moves all 4 extremities spontaneously. No edema, radial and dorsalis pedis pulses 2/4 bilaterally. No cyanosis. Back: Tenderness palpation of bilateral para lumbar musculature without any spinous process deformities, step-offs. 5 out of 5 strength both distally and proximally bilateral lower extremities. 2+ patellar reflexes bilaterally. No clonus. Sensation grossly intact in the bilateral lower extremities. Patient is able to ambulate without difficulty. NEUROLOGICAL: Alert and oriented x4. Normal speech. PSYCH: Normal affect, normal mood. SKIN: Warm, dry, normal turgor. No rashes or lesions noted. Course - Re-evaluation Re-evalutation: 10/02/17 06:37 Patient is very well in appearance, vitals within normal limits. Low clinical suspicion for ACS given clinical history, exam, EKG without ST elevations or depressions, and negative initial troponin. HEART score less than or equal to 3. PE also seems unlikely given clinical history, absence of tachycardia or dyspnea. Well's score of 0. CXR without evidence of pneumothorax or pneumonia. No widened mediastinum. Aortic dissection also seems unlikely given history, symmetric pulses, CXR, and vitals. Complete resolution of symptoms after Ativan and aspirin The patient also presents with low back pain without signs of spinal cord compression, cauda equina syndrome, infection, aneurysm, or other serious etiology. The patient is neurologically intact. Given the extremely low risk of these diagnoses further testing and evaluation for these possibilities does not appear to be indicated at this time. The patient has been instructed to return if the symptoms worsen or change in any way. - Vital Signs Vital signs: Temp Pulse Resp BP Pulse Ox 98.0 F 84 17 152/82 H 97 10/02/17 07:00 10/02/17 01:55 10/02/17 06:43 10/02/17 06:43 10/02/17 06:43 - Laboratory Result Diagrams: 10/02/17 04:26 10/02/17 04:26 Laboratory results interpreted by me: 10/02/17 10/02/17 01:45 04:26 Sodium 135.9 L Chloride 97 L Creatinine 0.43 L Glucose 537 H* Urine Glucose (UA) >=500 H Ur Leukocyte Esterase TRACE H - Diagnostic Test Radiology reviewed: Image reviewed, Reports reviewed Discharge - Discharge Clinical Impression: Chest pain, Depression with anxiety Condition: Good Disposition: HOME, SELF-CARE Instructions: Anxiety ([facility]) Additional Instructions: LOW BACK PAIN: Three out of every four people will have an episode of disabling back pain during their lifetime. Most commonly the pain is due to straining of the muscles and ligaments in the low back. Usual treatment includes: (1) Rest on a firm surface. Avoid lying on your stomach. (2) Ice pack the painful area. After a few days, gentle heat may be used intermittently to relax the area, or ice packs can be continued. (3) Medication may be needed -- muscle relaxers and antiinflammatory medicines are commonly used. (4) As the back improves, exercises are prescribed to strengthen the back and abdominal muscles. Your doctor will advise you on the proper care for your back at each stage in your recovery. You may be better in a few days -- or healing may take several weeks. If new symptoms of a "herniated disc" (radiation of pain, numbness, or tingling down the back of the leg or weakness in the leg) occur, you should be re-examined. Further testing may be necessary. ICE PACKS: Apply ice packs frequently against the painful area. Many different schedules are recommended, such as "20 minutes on, 20 minutes off" or "one hour ice, two hours rest." If you need to work, you may need to go longer between ice treatments. You should plan to have the area ice packed AT LEAST one fourth of the time. The ice should be applied over the wrap, tape, or splint, or over a layer of cloth -- not directly against the skin. Some ice bags have a built-in cloth and can be put directly on the skin. WARM PACKS: After approximately two days, apply gentle heat (such as a heating pad or hot water bottle) for about 20 to 30 minutes about every two hours -- at least four times daily. Warmth and elevation will help you make a more rapid recovery , and will ease the pain considerably. Do not use HOT heat, and never apply heat for longer than 30 minutes. The continuous heat can invisibly damage skin and muscles -- even when no burn is seen on the surface. Damaged muscles can make you MORE sore. FOLLOW-UP CARE: If you have been referred to a physician for follow-up care, call the physician s office for an appointment as you were instructed or within the next two days. If you experience worsening or a significant change in your symptoms, notify the physician immediately or return to the Emergency Department at any time for re-evaluation. Prescriptions: Prednisone [Deltasone 10 mg Tablet] 10 mg PO ASDIR PRN #21 tablet PRN Reason: Referrals: [facility] [Provider Group] - Follow up in 3-5 days
[2017-10-02 04:40] LABS: ABSOLUTE EOSINOPHILS # (AUTO) 0.1 10^3/uL (0.0-0.6); ABSOLUTE LYMPHOCYTES (AUTO) 2.3 10^3/uL (0.5-4.7); ABSOLUTE MONOCYTES (AUTO) 0.5 10^3/uL (0.1-1.4); ABSOLUTE NEUT (AUTO) 2.8 10^3/uL (1.7-8.2); BASOPHILS % (AUTO) 0.7 % (0-2); EOSINOPHILS % (AUTO) 1.9 % (0-6); HEMATOCRIT 41.4 % (36.0-47.0); LYMPHOCYTES % (AUTO) 39.8 % (13-45); MEAN CORPUSCULAR HEMOGLOBIN 27.7 pg (27.0-33.4); MEAN CORPUSCULAR HGB CONC 33.9 g/dL (32.0-36.0); MEAN CORPUSCULAR VOLUME 82 fl (80-97); MONOCYTES % (AUTO) 8.8 % (3-13); PLATELET COUNT 225 10^3/uL (150-450); RED BLOOD COUNT 5.07 10^6/uL (3.72-5.28); RED CELL DISTRIBUTION WIDTH 13.7 % (11.5-14.0); SEGMENTED NEUTROPHILS % (AUTO) 48.8 % (42-78); TOTAL CELLS COUNTED % (AUTO) 100 %; WHITE BLOOD COUNT 5.8 10^3/uL (4.0-10.5)
--- NOTE | 2017-10-02 04:51 | RADIOLOGY REPORT (SQ) ---
EXAM DESCRIPTION: CHEST SINGLE VIEW CLINICAL HISTORY: chest pain COMPARISON: 10/28/2016 FINDINGS: Single frontal view of the chest. Low lung volumes. Leads overlie the chest. The cardiomediastinal silhouette has normal size and contour. No consolidation, pneumothorax, or pleural effusion. No displaced rib fractures identified. Upper abdominal soft tissues are unremarkable. IMPRESSION: 1. No acute pulmonary process identified. No significant interval change.
[2017-10-02 04:55] LABS: ALANINE AMINOTRANSFERASE 32 U/L (9-52); ALBUMIN 4.5 g/dL (3.5-5.0); ALKALINE PHOSPHATASE 75 U/L (38-126); ANION GAP 12 (5-19); ASPARTATE AMINO TRANSFERASE 17 U/L (14-36); BILIRUBIN,DIRECT 0.3 mg/dL (0.0-0.4); BILIRUBIN,TOTAL 0.5 mg/dL (0.2-1.3); BLOOD UREA NITROGEN 12 mg/dL (7-20); CALCIUM 9.6 mg/dL (8.4-10.2); CARBON DIOXIDE 27 mmol/L (22-30); CHLORIDE 97 mmol/L (98-107); CREATINE KINASE 36 U/L (30-135); POTASSIUM 4.3 mmol/L (3.6-5.0); SODIUM 135.9 mmol/L (137-145)
[2017-10-02 05:06] LABS: CREATINE KINASE MB 0.77 ng/mL (<4.55)
[2017-10-02 05:14] LABS: TROPONIN I < 0.012 ng/mL
[2017-10-02 05:20] LABS: GLUCOSE 537 mg/dL (75-110)
[2017-10-02] MEDS ORDERED: NORMAL SALINE 1000 ML 1,000 ML IV ONE (05:21)
[2017-10-02] MEDS ORDERED: LORAZEPAM 1 MG TABLET PO ONE (05:28)
[2017-10-02 06:54] VITALS: BP 152/82
--- NOTE | 2017-10-02 23:32 | EKG REPORT ---
SEVERITY:- NORMAL ECG - SINUS RHYTHM : Confirmed by: Jennifer Burgess 02-Oct-2017 23:32:13
== END 2017-10-02 07:00 | disposition home or self-care (01) ==
LOC: ER 01:35
DX: F41.8 Other specified anxiety disorders (principal); R11.2 Nausea with vomiting, unspecified; R07.9 Chest pain, unspecified; R10.9 Unspecified abdominal pain; E78.00 Pure hypercholesterolemia, unspecified; I10 Essential (primary) hypertension; E11.9 Type 2 diabetes mellitus without complications; Z90.49 Acquired absence of other specified parts of digestive tract; Z90.710 Acquired absence of both cervix and uterus; Z88.2 Allergy status to sulfonamides; Z88.0 Allergy status to penicillin; Z91.040 Latex allergy status
CPT/HCPCS: 93005; 99284; 96360; 36415; 82553; 82550; 85025; 80053; 81001; 84484; 71045; 93010; J7030

== ENCOUNTER 2017-10-19 00:25 | Emergency (ER) | payer SELFPAY ==
[2017-10-19] MEDS ORDERED: HYDROCODONE/ACETAMINOPHEN 5-325 MG TABLET PO ONE (00:53)
--- NOTE | 2017-10-19 00:53 | ER Document Report ---
ED Fall - General Chief Complaint: Fall Stated Complaint: FALL, NECK PAIN Time Seen by Provider: 10/19/17 00:49 Mode of Arrival: Ambulatory Information source: Patient Notes: Patient is a 57-year-old female who presents to the ER today for slip and fall in the shower approximately 5 hours prior to arrival. Patient states that she landed on her buttocks in the shower. She denies any immediate pain. She states that she was lying down trying to go to sleep tonight and started having some neck stiffness on both sides of her neck as well as some low back pain. Patient denies any numbness or tingling anywhere, loss of bladder or bowel function, history of chronic back issues. Patient did not try anything for the pain. She denies hitting her head or loss of consciousness. Patient was placed in a c-collar soon as he arrived to the emergency department and stated complaint. TRAVEL OUTSIDE OF THE [place] IN LAST 30 DAYS: No - Related data Allergies/Adverse Reactions: Penicillins Allergy (Unknown, Verified 09/08/17 16:35) cephalexin monohydrate [From Keflex] Allergy (Verified 09/08/17 16:35) ciprofloxacin [From Cipro] Allergy (Verified 09/08/17 16:35) Iodinated Contrast- Oral and IV Dye [IV Dye, Iodine Containing] Allergy ( Verified 09/08/17 16:35) latex [Latex] Allergy (Verified 09/08/17 16:35) metformin Allergy (Verified 09/08/17 16:35) nitrofurantoin macrocrystalline [From Macrodantin] Allergy (Verified 09/08/17 16 :35) penicillin G Allergy (Verified 09/08/17 16:35) Sulfa (Sulfonamide Antibiotics) Allergy (Verified 09/08/17 16:35) tetracycline [Tetracycline] Allergy (Verified 09/08/17 16:35) nitroglycerin [From Nitrostat] Adverse Reaction (Verified 09/08/17 16:35) Past Medical History - General Information source: Patient - Social History Smoking Status: Unknown if Ever Smoked Family History: Arthritis, CVA, DM, Hyperlipidemia, Hypertension, Malignancy, Thyroid Disfunction - Past Medical History Cardiac Medical History: Reports: Hx Hypercholesterolemia, Hx Hypertension Pulmonary Medical History: Reports: Hx Asthma Neurological Medical History: Reports: Hx Cerebrovascular Accident, Hx Migraine Endocrine Medical History: Reports: Hx Diabetes Mellitus Type 1, Hx Diabetes Mellitus Type 2 - gastroparesis. Denies: Hx Hyperthyroidism, Hx Hypothyroidism Renal/ Medical History: Denies: Hx Peritoneal Dialysis Malignancy Medical History: Reports: Hx Cervical Cancer GI Medical History: Reports: Hx Gastroesophageal Reflux Disease. Denies: Hx Cirrhosis, Hx Hepatitis Musculoskeltal Medical History: Reports Hx Arthritis, Reports Hx Fibromyalgia, Reports Hx Musculoskeletal Deformity, Reports Hx Musculoskeletal Trauma Psychiatric Medical History: Reports: Hx Anxiety, Hx Depression Traumatic Medical History: Reports: Hx Fractures - Facial fractures Infectious Medical History: Denies: Hx Hepatitis Past Surgical History: Reports: Hx Abdominal Surgery - hernia, Hx Section - 2, Hx Cholecystectomy, Hx Hysterectomy, Hx Orthopedic Surgery - bilateral toes and elbows left knee twice, Hx Tubal Ligation, Other - Ventral hernia and pseudocyst removal. Denies: Hx Appendectomy - Immunizations Immunizations up to date: Yes Hx Diphtheria, Pertussis, Tetanus Vaccination: Yes Review of Systems - Review of Systems Constitutional: No symptoms reported EENT: No symptoms reported Cardiovascular: No symptoms reported Respiratory: No symptoms reported Gastrointestinal: No symptoms reported Genitourinary: No symptoms reported Female Genitourinary: No symptoms reported Musculoskeletal: See HPI Skin: No symptoms reported Hematologic/Lymphatic: No symptoms reported Neurological/Psychological: No symptoms reported Physical Exam - Vital signs Vitals: Temp Pulse Resp BP Pulse Ox 97.8 F 98 18 166/79 H 95 10/19/17 00:31 10/19/17 00:31 10/19/17 00:31 10/19/17 00:10/19/17 00:31 - Notes Notes: PHYSICAL EXAMINATION: GENERAL: Well-appearing and in no acute distress. HEAD: Atraumatic, normocephalic. EYES: Pupils equal round and reactive to light, extraocular movements intact, sclera anicteric, conjunctiva are normal. ENT: ear canals without erythema or foreign body, TMs pearly goldman with good bony landmarks, nares patent, oropharynx clear without exudates. Moist mucous membranes. NECK: In c-collar, no vertebral tenderness, tender to bilateral trapezius, normal range of motion, supple without lymphadenopathy LUNGS: CTAB and equal. No wheezes rales or rhonchi. HEART: Regular rate and rhythm without murmurs ABDOMEN: Soft, no tenderness. No guarding, no rebound BACK: Thoracic and lumbar vertebral tenderness, normal ROM GI/: no CVA tenderness EXTREMITIES: Normal range of motion, no pitting edema. No cyanosis. NEUROLOGICAL: Cranial nerves grossly intact. Normal sensory/motor exams. PSYCH: Normal mood, normal affect. SKIN: Warm, Dry, normal turgor, no rashes or lesions noted Course - Re-evaluation Re-evalutation: 10/19/17 05:28 Thoracic, lumbar x-rays and CT of the cervical spine negative for any acute pathology. C-collar was removed and patient was sent home on muscle relaxers - Vital Signs Vital signs: Temp Pulse Resp BP Pulse Ox 98.0 F 65 14 142/68 H 97 10/19/17 02:20 10/19/17 02:20 10/19/17 02:20 10/19/17 02:20 10/19/17 02:20 Discharge - Discharge Clinical Impression: Neck pain Fall Qualifiers: Encounter type: initial encounter Qualified Code(s): W19.XXXA - Unspecified fall, initial encounter Low back pain Qualifiers: Chronicity: acute Back pain laterality: midline Sciatica presence: without sciatica Qualified Code(s): M54.5 - Low back pain Condition: Stable Disposition: HOME, SELF-CARE Additional Instructions: Return immediately for any new or worsening symptoms. Follow up with primary care provider, call tomorrow to make followup appointment. Prescriptions: Cyclobenzaprine HCl [Flexeril 10 mg Tablet] 10 mg PO TID PRN #15 tablet PRN Reason:
--- NOTE | 2017-10-19 01:33 | RADIOLOGY REPORT (SQ) ---
EXAM DESCRIPTION: CT of the cervical spine without contrast CLINICAL HISTORY: fall in shower, pain COMPARISON: None available TECHNIQUE: Axial CT of the cervical spine obtained without contrast. FINDINGS: Alignment of the cervical spine is maintained without evidence of subluxation. The atlantoaxial, atlantodental, and occipitoatlantal intervals are preserved. No fracture identified. Vertebral body height preserved. Prevertebral soft tissues are unremarkable. Degenerative change of the atlantodental articulation. Mild endplate spondylosis and persistent arthropathy at C4/5 through C6/7. No osseous central canal or neural foraminal narrowing definitely identified. Visualized skull base is intact. No fracture of the visualized facial bones. Visualized mastoid air cells and paranasal sinuses are well aerated. Visualized thyroid is unremarkable. No cervical lymphadenopathy. No pneumothorax in the visualized lung apices. DLP: 371.13 mGy-cm IMPRESSION: 1. No acute fracture or subluxation of the cervical spine. This exam was performed according to our departmental dose-optimization program, which includes automated exposure control, adjustment of the mA and/or kV according to patient size and/or use of iterative reconstruction technique.
--- NOTE | 2017-10-19 01:36 | RADIOLOGY REPORT (SQ) ---
EXAM DESCRIPTION: Thoracic spine, 2 views CLINICAL HISTORY: fall in shower, pain COMPARISON: None. FINDINGS: 2 views of the thoracic spine. Thoracic vertebral body height preserved. Mild endplate spondylosis. Pedicles identified throughout. T1 not well evaluated on lateral views due to overlying soft tissues however it is well evaluated on CT of the cervical spine performed same day without abnormality. No widening of the paraspinous lines. No cortical step-offs. No subluxation. Visualized thoracic soft tissues and straight no definite abnormalities. IMPRESSION: 1. No acute abnormality of the thoracic spine by plain film criteria.
--- NOTE | 2017-10-19 01:37 | RADIOLOGY REPORT (SQ) ---
EXAM DESCRIPTION: Lumbar spine, 2 views CLINICAL HISTORY: fall in shower, pain COMPARISON: None. FINDINGS: 2 views of the lumbar spine. 5 nonrib-bearing lumbar vertebrae. Pedicles identified throughout. Lumbar vertebral body height and intervertebral disc height preserved. Atherosclerotic vascular calcification. No subluxation or cortical step-off identified. No abnormalities of visualized portions of the sacrum or pelvis. IMPRESSION: 1. No acute abnormalities of the lumbar spine by plain film criteria.
--- NOTE | 2017-10-19 01:38 | RADIOLOGY REPORT (SQ) ---
EXAM DESCRIPTION: Right shoulder, 3 views. CLINICAL HISTORY: fall in shower, pain COMPARISON: None. FINDINGS: 3 views of the right shoulder. No acute fracture or dislocation. Normal osseous mineralization. Degenerative change of the acromioclavicular joint. Visualized portions of the right hemithorax and straight no acute abnormality. IMPRESSION: 1. No acute fracture or dislocation.
[2017-10-19] MEDS ORDERED: HYDROCODONE/ACETAMINOPHEN 5-325 MG (6 TAB/ER DISP) PO PRN (02:03)
[2017-10-19] MEDS ORDERED: CYCLOBENZAPRINE HCL 10 MG TABLET PO ONE (02:03)
[2017-10-19 02:22] VITALS: BP 142/68
== END 2017-10-19 02:20 | disposition home or self-care (01) ==
LOC: ER 00:25
DX: M54.2 Cervicalgia (principal); M54.5 Low back pain; M43.6 Torticollis; W18.2XXA Fall in (into) shower or empty bathtub, initial encounter; I10 Essential (primary) hypertension; J45.909 Unspecified asthma, uncomplicated; E11.9 Type 2 diabetes mellitus without complications
CPT/HCPCS: 99284; 72100; 73030; 72070; 72125; L0120

== ENCOUNTER 2017-11-19 07:24 | Emergency (ER) | payer SELFPAY ==
[2017-11-19 08:28] LABS: ABSOLUTE BASOPHILS # (AUTO) 0.1 10^3/uL (0.0-0.2); ABSOLUTE EOSINOPHILS # (AUTO) 0.1 10^3/uL (0.0-0.6); ABSOLUTE LYMPHOCYTES (AUTO) 1.9 10^3/uL (0.5-4.7); ABSOLUTE MONOCYTES (AUTO) 0.5 10^3/uL (0.1-1.4); BASOPHILS % (AUTO) 1.2 % (0-2); EOSINOPHILS % (AUTO) 2.4 % (0-6); HEMATOCRIT 39.8 % (36.0-47.0); HEMOGLOBIN 13.7 g/dL (12.0-15.5); LYMPHOCYTES % (AUTO) 34.5 % (13-45); MEAN CORPUSCULAR HEMOGLOBIN 28.2 pg (27.0-33.4); MEAN CORPUSCULAR HGB CONC 34.4 g/dL (32.0-36.0); MEAN CORPUSCULAR VOLUME 82 fl (80-97); MONOCYTES % (AUTO) 8.9 % (3-13); PLATELET COUNT 206 10^3/uL (150-450); RED BLOOD COUNT 4.85 10^6/uL (3.72-5.28); RED CELL DISTRIBUTION WIDTH 13.5 % (11.5-14.0); TOTAL CELLS COUNTED % (AUTO) 100 %; WHITE BLOOD COUNT 5.6 10^3/uL (4.0-10.5)
[2017-11-19 08:39] LABS: ANION GAP 11 (5-19); BLOOD UREA NITROGEN 15 mg/dL (7-20); CALCIUM 9.4 mg/dL (8.4-10.2); CARBON DIOXIDE 28 mmol/L (22-30); CHLORIDE 97 mmol/L (98-107); POTASSIUM 4.6 mmol/L (3.6-5.0); SODIUM 136.4 mmol/L (137-145)
[2017-11-19 08:56] LABS: GLUCOSE 537 mg/dL (75-110)
[2017-11-19] MEDS ORDERED: INSULIN REG, HUMAN 100 UNIT/ML 3 ML VIAL (PYX) SUBCUT ONE (08:57)
--- NOTE | 2017-11-19 10:03 | ER Document Report ---
ED Skin Rash/Insect Bite/Abscs - General Chief Complaint: Skin Problem Stated Complaint: FEET SWELLING Time Seen by Provider: 11/19/17 07:39 Mode of Arrival: Ambulatory Information source: Patient Notes: Patient is a 57-year-old female who presents to the ER today for rash starting 2 days ago to her lower extremities. Patient states that is very itchy and she has been putting hydrocortisone ointment on it which does help. Patient has been scratching at the area as well. Patient denies any rash anywhere else, difficulty breathing, fever, chills, new detergents, new soaps, new foods that she knows of. She denies any history of clotting disorders. TRAVEL OUTSIDE OF THE [place] IN LAST 30 DAYS: No - Related Data Allergies/Adverse Reactions: Penicillins Allergy (Unknown, Verified 11/19/17 07:27) cephalexin monohydrate [From Keflex] Allergy (Verified 11/19/17 07:27) ciprofloxacin [From Cipro] Allergy (Verified 11/19/17 07:27) codeine Allergy (Verified 11/19/17 07:27) Iodinated Contrast- Oral and IV Dye [IV Dye, Iodine Containing] Allergy ( Verified 11/19/17 07:27) latex [Latex] Allergy (Verified 11/19/17 07:27) metformin Allergy (Verified 11/19/17 07:27) nitrofurantoin macrocrystalline [From Macrodantin] Allergy (Verified 11/19/17 07 :27) penicillin G Allergy (Verified 11/19/17 07:27) Sulfa (Sulfonamide Antibiotics) Allergy (Verified 11/19/17 07:27) tetracycline [Tetracycline] Allergy (Verified 11/19/17 07:27) nitroglycerin [From Nitrostat] Adverse Reaction (Verified 11/19/17 07:27) Past Medical History - General Information source: Patient - Social History Smoking Status: Never Smoker Chew tobacco use (# tins/day): No Frequency of alcohol use: None Drug Abuse: None Family History: Arthritis, CVA, DM, Hyperlipidemia, Hypertension, Malignancy, Thyroid Disfunction Patient has suicidal ideation: No Patient has homicidal ideation: No - Past Medical History Cardiac Medical History: Reports: Hx Hypercholesterolemia, Hx Hypertension Pulmonary Medical History: Reports: Hx Asthma Neurological Medical History: Reports: Hx Cerebrovascular Accident, Hx Migraine Endocrine Medical History: Reports: Hx Diabetes Mellitus Type 1, Hx Diabetes Mellitus Type 2 - gastroparesis. Denies: Hx Hyperthyroidism, Hx Hypothyroidism Renal/ Medical History: Denies: Hx Peritoneal Dialysis Malignancy Medical History: Reports: Hx Cervical Cancer GI Medical History: Reports: Hx Gastroesophageal Reflux Disease. Denies: Hx Cirrhosis, Hx Hepatitis Musculoskeltal Medical History: Reports Hx Arthritis, Reports Hx Fibromyalgia, Reports Hx Musculoskeletal Deformity, Reports Hx Musculoskeletal Trauma Psychiatric Medical History: Reports: Hx Anxiety, Hx Depression Traumatic Medical History: Reports: Hx Fractures - Facial fractures Infectious Medical History: Denies: Hx Hepatitis Past Surgical History: Reports: Hx Abdominal Surgery - hernia, Hx Section - 2, Hx Cholecystectomy, Hx Hysterectomy, Hx Orthopedic Surgery - bilateral toes and elbows left knee twice, Hx Tubal Ligation, Other - Ventral hernia and pseudocyst removal. Denies: Hx Appendectomy - Immunizations Immunizations up to date: Yes Hx Diphtheria, Pertussis, Tetanus Vaccination: Yes Review of Systems - Review of Systems Constitutional: No symptoms reported EENT: No symptoms reported Cardiovascular: No symptoms reported Respiratory: No symptoms reported Gastrointestinal: No symptoms reported Genitourinary: No symptoms reported Female Genitourinary: No symptoms reported Musculoskeletal: No symptoms reported Skin: See HPI Hematologic/Lymphatic: No symptoms reported Neurological/Psychological: No symptoms reported Physical Exam - Vital signs Vitals: Pulse Resp BP Pulse Ox 71 18 171/88 H 97 11/19/17 10:16 11/19/17 10:16 11/19/17 10:16 11/19/17 10:16 - Notes Notes: PHYSICAL EXAMINATION: GENERAL: Well-appearing and in no acute distress. HEAD: Atraumatic, normocephalic. EYES: Pupils equal round and reactive to light, extraocular movements intact, sclera anicteric, conjunctiva are normal. NECK: Normal range of motion, supple without lymphadenopathy LUNGS: CTAB and equal. No wheezes rales or rhonchi. HEART: Regular rate and rhythm without murmurs ABDOMEN: Soft, no tenderness. No guarding, no rebound BACK: no vertebral tenderness, normal ROM GI/: no CVA tenderness EXTREMITIES: Normal range of motion, no pitting edema. No cyanosis. NEUROLOGICAL: Cranial nerves grossly intact. Normal sensory/motor exams. PSYCH: Normal mood, normal affect. SKIN: Warm, Dry, normal turgor, erythematous macular rash with one patch to the lateral left calf, 2 patches to the lateral and posterior right calf, excoriation present, dry skin present Course - Re-evaluation Re-evalutation: 11/19/17 11:30 Patient's glucose on lab work is 537. Patient states that she did not take her insulin today after she ate a bagel with cream cheese for breakfast just prior to arrival. Patient was given insulin here and promises to check her sugar and give herself more insulin if she needs at home. Her anion gap is negative, patient has no nausea, vomiting or abdominal pain. Her vital signs are all within normal limits. Patient also requests a blood pressure medication refill of losartan/hydrochlorothiazide 100-25. She states that she is out of this medication. - Vital Signs Vital signs: Temp Pulse Resp BP Pulse Ox 71 18 171/88 H 97 11/19/17 10:16 11/19/17 10:16 11/19/17 10:16 11/19/17 10:16 - Laboratory Result Diagrams: 11/19/17 08:15 11/19/17 08:15 Laboratory results interpreted by me: 11/19/17 11/19/17 08:15 10:07 Sodium 136.4 L Chloride 97 L Creatinine 0.51 L Glucose 537 H* POC Glucose 433 H* Discharge - Discharge Clinical Impression: Rash, Hyperglycemia HTN (hypertension) Qualifiers: Hypertension type: unspecified Qualified Code(s): I10 - Essential (primary) hypertension Condition: Stable Disposition: HOME, SELF-CARE Additional Instructions: You can continue to use hydrocortisone topically. Return immediately for any new or worsening symptoms. Follow up with primary care provider, call tomorrow to make followup appointment. Prescriptions: Losartan/Hydrochlorothiazide [Losartan-Hctz 100-25 mg Tab] 1 each PO DAILY #30 tablet
[2017-11-19 10:17] VITALS: BP 171/88
== END 2017-11-19 10:17 | disposition home or self-care (01) ==
LOC: ER 07:24
DX: R21 Rash and other nonspecific skin eruption (principal); E11.65 Type 2 diabetes mellitus with hyperglycemia; Z79.4 Long term (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 of insulin; I10 Essential (primary) hypertension; J45.909 Unspecified asthma, uncomplicated; Z88.0 Allergy status to penicillin; Z88.1 Allergy status to other antibiotic agents; Z88.5 Allergy status to narcotic agent; Z91.041 Radiographic dye allergy status; Z91.040 Latex allergy status; Z88.8 Allergy status to other drugs, medicaments and biological substances; Z88.2 Allergy status to sulfonamides; Z85.41 Personal history of malignant neoplasm of cervix uteri
CPT/HCPCS: 36415; 80048; 82962; 85025; 99283; J1815

== ENCOUNTER 2017-12-04 18:42 | Emergency (ER) | payer SELFPAY ==
[2017-12-04] MEDS ORDERED: ACETAMINOPHEN 325 MG TABLET PO ONE (19:30)
--- NOTE | 2017-12-04 20:06 | RADIOLOGY REPORT (SQ) ---
EXAM DESCRIPTION: KNEE LEFT 4 VIEW COMPLETED DATE/TIME: 12/04/2017 7:40 pm REASON FOR STUDY: pain injury knee COMPARISON: None. NUMBER OF VIEWS: Four views. TECHNIQUE: AP, lateral, and both oblique radiographic images acquired of the left knee. LIMITATIONS: None. FINDINGS: MINERALIZATION: Normal. BONES: No acute fracture or dislocation. No worrisome bone lesions. JOINT: No effusion. SOFT TISSUES: No soft tissue swelling. No radio-opaque foreign body. OTHER: No other significant finding. IMPRESSION: NO RADIOGRAPHIC EVIDENCE OF ACUTE INJURY. TECHNICAL DOCUMENTATION: JOB ID: [id number] [id number] 2010 [employer]- All Rights Reserved Reading location - IP/workstation name: [email or web address]
--- NOTE | 2017-12-04 20:38 | ER Document Report ---
ED Extremity Problem, Lower - General Chief Complaint: Knee Injury Stated Complaint: FALL Time Seen by Provider: 12/04/17 19:10 Mode of Arrival: Ambulatory Information source: Patient Notes: 57-year-old female presented ED for complaint of left knee pain. She states she tripped last night [place]. She states her shoe caught in the wound on the bridge and she fell landing on her knee. She states she thought she was going to be okay but the pain increased since the incident until today. She came to the emergency room to be ensure that she had not broken her knee. She is alert and oriented respirations regular and unlabored speaks with full sentences and is able to ambulate with pain. TRAVEL OUTSIDE OF THE [place] IN LAST 30 DAYS: No - HPI Patient complains to provider of: Injury, Pain, Swelling Location: Knee Occurred: Yesterday Where: Outdoors, Public place Onset/Duration: Gradual Quality of pain: Burning, Sharp Severity: Severe Pain Level: 5 Context: Fell Recent injury: Yes Associated symptoms: Painful ambulation Exacerbated by: Hanging down, Movement, Walking Relieved by: Elevation, Ice, Rest - Related Data Allergies/Adverse Reactions: Penicillins Allergy (Unknown, Verified 12/04/17 18:42) cephalexin monohydrate [From Keflex] Allergy (Verified 12/04/17 18:42) ciprofloxacin [From Cipro] Allergy (Verified 12/04/17 18:42) codeine Allergy (Verified 12/04/17 18:42) Iodinated Contrast- Oral and IV Dye [IV Dye, Iodine Containing] Allergy ( Verified 12/04/17 18:42) latex [Latex] Allergy (Verified 12/04/17 18:42) metformin Allergy (Verified 12/04/17 18:42) nitrofurantoin macrocrystalline [From Macrodantin] Allergy (Verified 12/04/17 18 :42) penicillin G Allergy (Verified 12/04/17 18:42) Sulfa (Sulfonamide Antibiotics) Allergy (Verified 12/04/17 18:42) tetracycline [Tetracycline] Allergy (Verified 12/04/17 18:42) nitroglycerin [From Nitrostat] Adverse Reaction (Verified 12/04/17 18:42) Past Medical History - General Information source: Patient - Social History Smoking Status: Former Smoker Cigarette use (# per day): No Chew tobacco use (# tins/day): No Smoking Education Provided: No Frequency of alcohol use: None Drug Abuse: None Lives with: Family Family History: Arthritis, CVA, DM, Hyperlipidemia, Hypertension, Malignancy, Thyroid Disfunction Patient has suicidal ideation: No Patient has homicidal ideation: No - Past Medical History Cardiac Medical History: Reports: Hx Hypercholesterolemia, Hx Hypertension Pulmonary Medical History: Reports: Hx Asthma Neurological Medical History: Reports: Hx Cerebrovascular Accident, Hx Migraine Endocrine Medical History: Reports: Hx Diabetes Mellitus Type 2 Renal/ Medical History: Reports: None Malignancy Medical History: Reports: Hx Cervical Cancer GI Medical History: Reports: Hx Gastroesophageal Reflux Disease, Other - Gastroparesis Musculoskeltal Medical History: Reports Hx Arthritis, Reports Hx Fibromyalgia, Reports Hx Musculoskeletal Deformity, Reports Hx Musculoskeletal Trauma Skin Medical History: Reports None Psychiatric Medical History: Reports: Hx Anxiety, Hx Depression Traumatic Medical History: Reports: Hx Fractures - Facial fractures Past Surgical History: Reports: Hx Abdominal Surgery - hernia, Hx Section - 2, Hx Cholecystectomy, Hx Hysterectomy, Hx Orthopedic Surgery - bilateral toes and elbows left knee twice, Hx Tubal Ligation, Other - Ventral hernia and pseudocyst removal - Immunizations Immunizations up to date: Yes Hx Diphtheria, Pertussis, Tetanus Vaccination: Yes Review of Systems - Review of Systems Constitutional: No symptoms reported EENT: No symptoms reported Cardiovascular: No symptoms reported Respiratory: No symptoms reported Gastrointestinal: No symptoms reported Genitourinary: No symptoms reported Female Genitourinary: No symptoms reported Musculoskeletal: Other - Pain swelling and abrasions to the left knee Skin: Other - Abrasion to the left knee Hematologic/Lymphatic: No symptoms reported Neurological/Psychological: No symptoms reported -: Yes All other systems reviewed and negative Physical Exam - Vital signs Vitals: Temp Pulse Resp BP Pulse Ox 97.8 F 86 16 156/77 H 97 12/04/17 18:59 12/04/17 18:59 12/04/17 18:59 12/04/17 18:59 12/04/17 18:59 Interpretation: Normal - General General appearance: Appears well, Alert - HEENT Head: Normocephalic, Atraumatic Eyes: Normal Pupils: PERRL - Respiratory Respiratory status: No respiratory distress Chest status: Nontender Breath sounds: Normal Chest palpation: Normal - Cardiovascular Rhythm: Regular Heart sounds: Normal auscultation Murmur: No - Abdominal Inspection: Normal Distension: No distension Bowel sounds: Normal Tenderness: Nontender Organomegaly: No organomegaly - Back Back: Normal, Nontender - Extremities General upper extremity: Normal inspection, Nontender, Normal color, Normal ROM , Normal temperature General lower extremity: Normal color, Normal temperature. No: Yoel's sign Knee: Tender, Abrasion, Ecchymosis, Patellar tendon intact - Neurological Neuro grossly intact: Yes Cognition: Normal Orientation: AAOx4 Weld Coma Scale Eye Opening: Spontaneous Naren Coma Scale Verbal: Oriented Naren Coma Scale Motor: Obeys Commands Weld Coma Scale Total: 15 Speech: Normal Motor strength normal: LUE, RUE, LLE, RLE Sensory: Normal - Psychological Associated symptoms: Normal affect, Normal mood - Skin Skin Temperature: Warm Skin Moisture: Dry Skin Color: Normal Skin irregularity: other - Abrasions Location of irregularity: Extremities - Left knee Irregularity with: Swelling Course - Re-evaluation Re-evalutation: 12/04/17 20:53 X-ray was discussed with patient and written report of x-ray given to patient to follow-up with the orthopedics. An Victor Manuel wrap was applied to the knee for her pain. Patient is already cleaned the abrasions last night when she fell. Patient was instructed to use ice elevation and ibuprofen for her pain. Patient to follow-up with orthopedics. - Vital Signs Vital signs: Temp Pulse Resp BP Pulse Ox 97.8 F 86 16 156/77 H 97 12/04/17 18:59 12/04/17 18:59 12/04/17 18:59 12/04/17 18:59 12/04/17 18:59 - Diagnostic Test Radiology reviewed: Image reviewed, Reports reviewed Discharge - Discharge Clinical Impression: Contusion of left knee Qualifiers: Encounter type: initial encounter Qualified Code(s): S80.02XA - Contusion of left knee, initial encounter Abrasion of left knee Qualifiers: Encounter type: initial encounter Qualified Code(s): S80.212A - Abrasion, left knee, initial encounter Condition: Stable Disposition: HOME, SELF-CARE Additional Instructions: CONTUSION: Your injury has resulted in a contusion -- a crushing of the deep tissues. No injury to important structures was detected during the physician's exam. Contusions vary in the amount of pain they cause, and in the length of time required for healing. Typically, the area will become bruised, and will remain painful to touch for two or three weeks. However, most patients are back to working and playing within a few days. After the initial period of rest and cold-packs, your symptoms (together with the doctor's recommendations) will determine how rapidly you can get back to full activity. Usually this means "do what feels okay, but don't do things that hurt." If re-examination was recommended, it's important to follow up as instructed. Call the doctor or return any time if pain increases, if swelling becomes severe, if you develop numbness or weakness in an injured extremity, or if any other alarming symptoms occur. USE OF TYLENOL (ACETAMINOPHEN): Acetaminophen may be taken for pain relief or fever control. It's much safer than aspirin, offering a wider range of "safe" dosages. It is safe during . Some brand names are Tylenol, Panadol, Datril, Anacin 3, Tempra, and Liquiprin. Acetaminophen can be repeated every four hours. The following are maximum recommended dosages: WEIGHT Dose Drops Elixir Chewable( 80mg) (LBS.) drprs=droppers tsp=teaspoon 6 40 mg 0.4 ml (1/2) 6-11 80 mg 0.8 ml (full) tsp 1 tab 12-16 120 mg 1 1/2 drprs 3/4 tsp 1 1/2 tabs 17-23 160 mg 2 drprs 1 tsp 2 tabs 24-30 240 mg 3 drprs 1 1/2 tsp 3 tabs 30-35 320 mg 2 tsp 4 tabs 36-41 360 mg 2 1/4 tsp 4 1/2 tabs 42-47 400 mg 2 1/2 tsp 5 tabs 48-53 480 mg 3 tsp 6 tabs 54-59 520 mg 3 1/4 tsp 6 1/2 tabs 60-64 560 mg 3 1/2 tsp 7 tabs 65-70 600 mg 3 3/4 tsp 7 1/2 tabs 71-76 640 mg 4 tsp 8 tabs 77-82 720 mg 4 1/2 tsp 9 tabs 83-88 800 mg 5 tsp 10 tabs >89 pounds or adults 650 mg to 900 mg Acetaminophen can be repeated every four hours. Maximum dose not to exceed 4000 mg a day. These maximum recommended dosages are slightly higher than the dosages written on the product container, but these dosages are very safe and below the toxic dosage for acetaminophen. VICTOR MANUEL WRAP: A compression dressing (victor manuel wrap) has been placed. This helps hold the area still. It limits swelling and internal bleeding. The wrap should be comfortably snug -- not tight. You should feel a sense of pressure, but not severe pain under the wrap. Unless the physician tells you otherwise, you can adjust the wrap for comfort. If the wrap causes symptoms suggesting it's too tight -- uncomfortable pressure, swelling or discoloration beyond the wrap, numbness, or severe pain - - you must loosen the wrap. If these symptoms don't resolve promptly, return for re-evaluation. USE OF CRUTCHES: The doctor has recommended that you not bear weight at this time. You will need to use crutches. Adjust the crutches so the tops come to about two inches under the armpit while you are standing upright. Use your hands -- not your armpits -- to support your weight. To get into a chair, support yourself with one crutch on the injured side. Hold the chair with the other hand, then lower yourself while putting all your weight on the good leg. Going up stairs is `good leg up, step up, then bring up crutches and bad leg.' Down stairs is `bad leg and crutches down, then bring good leg down.' If you develop numbness or swelling in an arm or hand, you are using the crutches incorrectly. Return if you are having any problems with the crutches. ICE & ELEVATION: Apply ice packs frequently against the painful area. Many different schedules are recommended, such as "20 minutes on, 20 minutes off" or "one hour ice, two hours rest." If you need to work, you may need to go longer between ice treatments. You should plan to have the area ice packed AT LEAST one- fourth of the time. The ice should be applied over the wrap, tape, or splint, or over a layer of cloth -- not directly against the skin. Some ice bags have a built-in cloth and can be put directly on the skin. Your injured part should be elevated as much as possible over the next 48 hours. Try to keep the injury above the level of the heart. Avoid use of the injured area. Elevation and rest will decrease the swelling. USE OF DHND-EMB-ORIHUFS IBUPROFEN: Ibuprofen (Advil, Nuprin, Medipren, Motrin IB) is a medication for fever and pain control. In addition, it has anti- inflammatory effects which may be beneficial, especially in the treatment of injuries. It's best to take ibuprofen with food. Persons with ulcer disease or allergy to aspirin should notify their physician of this before taking ibuprofen. Ibuprofen can be given every four to six hours, for a total of four doses daily. Age Pain or fever dose Antiinflammatory dose 6-8 yr 200 mg (1 tab) 200 mg (1 tab) 9-11 yr 200 mg (1 tab) 200-400 mg (1-2 tab) 11-14 yr 200-400 mg (1-2 tab) 400 mg (2 tab) 15-adult 400 mg (2 tab) 600 mg (3 tab) FOLLOW-UP CARE: If you have been referred to a physician for follow-up care, call the physician s office for an appointment as you were instructed or within the next two days. If you experience worsening or a significant change in your symptoms, notify the physician immediately or return to the Emergency Department at any time for re-evaluation. Referrals: BECKY GARCIA MD [ACTIVE STAFF] - Follow up as needed
[2017-12-04 20:53] VITALS: BP 161/95
== END 2017-12-04 20:53 | disposition home or self-care (01) ==
LOC: ER 18:42
DX: S80.02XA Contusion of left knee, initial encounter (principal); S80.212A Abrasion, left knee, initial encounter; M25.562 Pain in left knee; M79.89 Other specified soft tissue disorders; W01.0XXA Fall on same level from slipping, tripping and stumbling without subsequent striking against object, initial encounter; Z87.891 Personal history of nicotine dependence; I10 Essential (primary) hypertension; J45.909 Unspecified asthma, uncomplicated; E11.9 Type 2 diabetes mellitus without complications
CPT/HCPCS: 99283

== ENCOUNTER 2017-12-16 00:41 | Emergency (ER) | payer SELFPAY ==
[2017-12-16] MEDS ORDERED: PROMETHAZINE HCL INJ 25 MG/1 ML VIAL IM ONE (01:02)
[2017-12-16] MEDS ORDERED: NORMAL SALINE 1000 ML 1,000 ML IV ONE (01:02)
[2017-12-16] MEDS ORDERED: MORPHINE SULFATE 10 MG/ML INJ IV ONE (01:03)
--- NOTE | 2017-12-16 01:05 | ER Document Report ---
ED General - General Chief Complaint: Abdominal Pain Stated Complaint: ABDOMINAL PAIN Time Seen by Provider: 12/16/17 00:56 Notes: Patient is a 57-year-old female presents with complaint of epigastric and left upper quadrant abdominal pain. She has been vomiting and having diarrhea. No fevers. She has had a previous cholecystectomy. She has a history of recurrent pancreatitis. She is to drink alcohol but no longer does. Her initial pancreatitis was related to the scan that she had looking her gallbladder which she said the contrast or dye that was given to her because they missed her pancreas. She denies any chest pain. No shortness of breath. She also has a history of gastroparesis which sometimes gives similar pains. She is followed by the current community clinic. She has no other complaints at this time. TRAVEL OUTSIDE OF THE [place] IN LAST 30 DAYS: No - Related Data Allergies/Adverse Reactions: Penicillins Allergy (Unknown, Verified 12/04/17 18:42) cephalexin monohydrate [From Keflex] Allergy (Verified 12/04/17 18:42) ciprofloxacin [From Cipro] Allergy (Verified 12/04/17 18:42) codeine Allergy (Verified 12/04/17 18:42) Iodinated Contrast- Oral and IV Dye [IV Dye, Iodine Containing] Allergy ( Verified 12/04/17 18:42) latex [Latex] Allergy (Verified 12/04/17 18:42) metformin Allergy (Verified 12/04/17 18:42) nitrofurantoin macrocrystalline [From Macrodantin] Allergy (Verified 12/04/17 18 :42) penicillin G Allergy (Verified 12/04/17 18:42) Sulfa (Sulfonamide Antibiotics) Allergy (Verified 12/04/17 18:42) tetracycline [Tetracycline] Allergy (Verified 12/04/17 18:42) nitroglycerin [From Nitrostat] Adverse Reaction (Verified 12/04/17 18:42) Past Medical History - Social History Smoking Status: Never Smoker Frequency of alcohol use: None Drug Abuse: None Family History: Arthritis, CVA, DM, Hyperlipidemia, Hypertension, Malignancy, Thyroid Disfunction - Past Medical History Cardiac Medical History: Reports: Hx Hypercholesterolemia, Hx Hypertension Pulmonary Medical History: Reports: Hx Asthma Neurological Medical History: Reports: Hx Cerebrovascular Accident, Hx Migraine Endocrine Medical History: Reports: Hx Diabetes Mellitus Type 1, Hx Diabetes Mellitus Type 2. Denies: Hx Hyperthyroidism, Hx Hypothyroidism Renal/ Medical History: Denies: Hx Peritoneal Dialysis Malignancy Medical History: Reports: Hx Cervical Cancer GI Medical History: Reports: Hx Gastroesophageal Reflux Disease. Denies: Hx Cirrhosis, Hx Hepatitis Musculoskeletal Medical History: Reports Hx Arthritis, Reports Hx Fibromyalgia, Reports Hx Musculoskeletal Deformity, Reports Hx Musculoskeletal Trauma Psychiatric Medical History: Reports: Hx Anxiety, Hx Depression Traumatic Medical History: Reports: Hx Fractures - Facial fractures Infectious Medical History: Denies: Hx Hepatitis Past Surgical History: Reports: Hx Abdominal Surgery - hernia, Hx Section - 2, Hx Cholecystectomy, Hx Hysterectomy, Hx Orthopedic Surgery - bilateral toes and elbows left knee twice, Hx Tubal Ligation, Other - Ventral hernia and pseudocyst removal. Denies: Hx Appendectomy - Immunizations Immunizations up to date: Yes Hx Diphtheria, Pertussis, Tetanus Vaccination: Yes Review of Systems - Review of Systems Notes: My Normal Review Basic REVIEW OF SYSTEMS: CONSTITUTIONAL : Denies fever, chills, or sweats. Denies recent illness. CARDIOVASCULAR: Denies chest pain. RESPIRATORY: Denies cough, cold, or chest congestion. Denies shortness of breath, difficulty breathing, or wheezing. GASTROINTESTINAL: Gastric abdominal pain. Vomiting and diarrhea. GENITOURINARY: Denies difficulty urinating, painful urination, burning, frequency, or blood in urine. MUSCULOSKELETAL: Denies neck or back pain or joint pain or swelling. SKIN: Denies rash or skin lesions. NEUROLOGICAL: Denies altered mental status or loss of consciousness. Denies headache. Denies weakness or paralysis or loss of use of either side. Denies problems with gait or speech. Denies sensory or motor loss. ALL OTHER SYSTEMS REVIEWED AND NEGATIVE. Physical Exam - Vital signs Vitals: Temp Pulse Resp BP Pulse Ox 97.7 F 79 16 148/73 H 96 12/16/17 00:49 12/16/17 00:49 12/16/17 00:49 12/16/17 00:49 12/16/17 00:49 - Notes Notes: General Appearance: Well nourished, alert, cooperative, no acute distress, mild obvious discomfort. Vitals: reviewed, See vital signs table. Head: no swelling or tenderness to the head Eyes: PERRL, EOMI, Conjuctiva clear Mouth: No decreasd moisture Lungs: No wheezing, No rales, No rhonci, No accessory muscle use, good air exchange bilaterally. Heart: Normal rate, Regular rythm, No murmur, no rub Abdomen: Normal BS, soft, No rigidity, moderate epigastric and left upper quadrant abdominal tenderness palpation, No guarding, no rebound, no abdominal masses, no organomegaly Extremities: strength 5/5 in all extremities, good pulses in all extremities, no swelling or tenderness in the extremities, no edema. Skin: warm, dry, appropriate color, no rash Neuro: speech clear, oriented x 3, normal affect, responds appropriately to questions. Course - Re-evaluation Re-evalutation: 12/16/17 06:27 I suspect that the patient's pain today is possibly related to gastroparesis. Is not related to pancreatitis. She does not have a lipase. She says she has been vomiting all day however she did not vomit once the entire time she was here in the ER and never requested emesis bag and never appeared to be gagging or nauseous. Patient's laboratory evaluation is unremarkable. We will discharge patient home with Reglan. Blood sugar is high which informed patient would make her gastroparesis worse. Patient said that she may have forgotten to take her Humalog tonight. I did give her a dose of insulin here and her blood sugar started to trend downwards. I informed her that it is extremely important that she takes her insulin as prescribed and that she follows a strict diet. Encouraged her return to ER if she has intractable vomiting, increasing pain, or fevers. Patient agrees with plan will be discharged home. Dictation of this chart was performed using voice recognition software; therefore, there may be some unintended grammatical errors. - Vital Signs Vital signs: Temp Pulse Resp BP Pulse Ox 97.7 F 79 18 138/72 H 94 12/16/17 00:49 12/16/17 00:49 12/16/17 04:01 12/16/17 04:01 12/16/17 04:01 - Laboratory Result Diagrams: 12/16/17 01:13 12/16/17 01:13 Laboratory results interpreted by me: 12/16/17 12/16/17 01:13 03:24 Sodium 135.3 L Chloride 95 L Glucose 521 H* POC Glucose 402 H* Discharge - Discharge Clinical Impression: Gastroparesis, Hyperglycemia Abdominal pain Qualifiers: Abdominal location: epigastric Qualified Code(s): R10.13 - Epigastric pain Condition: Good Disposition: HOME, SELF-CARE Additional Instructions: Please take your insulin as prescribed.please take the Reglan to help with vomiting. please return to the ER immediately if you develop worsening pain, fevers, intractable vomiting, or if you feel unwell. Prescriptions: Metoclopramide HCl [Reglan 10 mg Tablet] 1 tab PO ASDIR PRN #25 tablet PRN Reason:
[2017-12-16 01:28] LABS: ABSOLUTE BASOPHILS # (AUTO) 0.1 10^3/uL (0.0-0.2); ABSOLUTE EOSINOPHILS # (AUTO) 0.1 10^3/uL (0.0-0.6); ABSOLUTE LYMPHOCYTES (AUTO) 2.7 10^3/uL (0.5-4.7); ABSOLUTE MONOCYTES (AUTO) 0.5 10^3/uL (0.1-1.4); ABSOLUTE NEUT (AUTO) 2.8 10^3/uL (1.7-8.2); EOSINOPHILS % (AUTO) 1.9 % (0-6); HEMATOCRIT 41.8 % (36.0-47.0); HEMOGLOBIN 14.5 g/dL (12.0-15.5); LYMPHOCYTES % (AUTO) 44.4 % (13-45); MEAN CORPUSCULAR HEMOGLOBIN 28.1 pg (27.0-33.4); MEAN CORPUSCULAR HGB CONC 34.7 g/dL (32.0-36.0); MEAN CORPUSCULAR VOLUME 81 fl (80-97); MONOCYTES % (AUTO) 7.6 % (3-13); PLATELET COUNT 213 10^3/uL (150-450); RED BLOOD COUNT 5.17 10^6/uL (3.72-5.28); RED CELL DISTRIBUTION WIDTH 13.3 % (11.5-14.0); SEGMENTED NEUTROPHILS % (AUTO) 45.1 % (42-78); TOTAL CELLS COUNTED % (AUTO) 100 %; WHITE BLOOD COUNT 6.1 10^3/uL (4.0-10.5)
[2017-12-16 01:42] LABS: ALANINE AMINOTRANSFERASE 29 U/L (9-52); ALBUMIN 4.2 g/dL (3.5-5.0); ALKALINE PHOSPHATASE 87 U/L (38-126); ANION GAP 12 (5-19); ASPARTATE AMINO TRANSFERASE 16 U/L (14-36); BILIRUBIN,DIRECT 0.2 mg/dL (0.0-0.4); BILIRUBIN,TOTAL 0.4 mg/dL (0.2-1.3); BLOOD UREA NITROGEN 16 mg/dL (7-20); CALCIUM 9.7 mg/dL (8.4-10.2); CARBON DIOXIDE 28 mmol/L (22-30); CHLORIDE 95 mmol/L (98-107); LIPASE 202.5 U/L (23-300); POTASSIUM 4.1 mmol/L (3.6-5.0); SODIUM 135.3 mmol/L (137-145); TOTAL PROTEIN 6.8 g/dL (6.3-8.2)
[2017-12-16 02:01] LABS: GLUCOSE 521 mg/dL (75-110)
[2017-12-16] MEDS ORDERED: INSULIN REG, HUMAN 100 UNIT/ML 3 ML VIAL (PYX) SUBCUT ONE (02:06)
[2017-12-16] MEDS ORDERED: METOCLOPRAMIDE HCL INJ/PF 10 MG/2 ML SDV IV ONE (02:23)
[2017-12-16 04:21] VITALS: BP 138/72
== END 2017-12-16 04:25 | disposition home or self-care (01) ==
LOC: ER 00:41
DX: E11.43 Type 2 diabetes mellitus with diabetic autonomic (poly)neuropathy (principal); K31.84 Gastroparesis; E11.65 Type 2 diabetes mellitus with hyperglycemia; R10.13 Epigastric pain; R10.12 Left upper quadrant pain; R11.10 Vomiting, unspecified; R19.7 Diarrhea, unspecified; E78.00 Pure hypercholesterolemia, unspecified; I10 Essential (primary) hypertension; Z88.0 Allergy status to penicillin; Z88.3 Allergy status to other anti-infective agents; Z91.040 Latex allergy status; Z88.2 Allergy status to sulfonamides; Z86.73 Personal history of transient ischemic attack (TIA), and cerebral infarction without residual deficits; Z90.49 Acquired absence of other specified parts of digestive tract; Z90.710 Acquired absence of both cervix and uterus
CPT/HCPCS: 99284; 96372; 96361; 96374; 96375; 36415; 82962; 83690; 85025; 80053; J2765; J2270; J1815; J2550; J7030

== ENCOUNTER 2018-04-02 11:51 | Emergency (ER) | payer SELFPAY ==
[2018-04-02] MEDS ORDERED: ASPIRIN 81 MG TABLET, CHEWABLE PO ONE (12:53)
--- NOTE | 2018-04-02 12:53 | ER Document Report ---
ED General - General Chief Complaint: Sore Throat Stated Complaint: FACE PAIN Time Seen by Provider: 04/02/18 12:38 Mode of Arrival: Ambulatory Information source: Patient Notes: 58-year-old female presents emergency department with complaints of right jaw pain. She states that is been present for the last week. She states that last night she began having right ear pain. Patient describes the pain as a sharp and stabbing sensation. This is not exacerbated with opening her mouth. Patient states that just below the earlobe she is very tender. This morning she began having left sided jaw pain. She states that she cannot reproduce this pain. It feels different than the right side. Patient denies any chest pain, shortness of breath. Patient does have a history of diabetes, hypertension. She says that her blood sugar has been uncontrolled. She has not been following up with her primary care physician. I have greeted and performed a rapid initial assessment of this patient. A comprehensive ED assessment and evaluation of the patient, analysis of test results and completion of the medical decision making process will be conducted by additional ED providers. PHYSICAL EXAMINATION: GENERAL: Well-appearing, well-nourished and in no acute distress. HEAD: Atraumatic, normocephalic. EYES: Pupils equal round extraocular movements intact, conjunctiva are normal. ENT: Nares patent. Tenderness to palpation of the R TMJ. No pain with opening mouth, only with palpation. No reproducible L sided jaw pain. NECK: Normal range of motion LUNGS: No respiratory distress Musculoskeletal: Normal range of motion NEUROLOGICAL: Normal speech, normal gait. PSYCH: Normal mood, normal affect. SKIN: Warm, Dry, normal turgor, no rashes or lesions noted. TRAVEL OUTSIDE OF THE [place] IN LAST 30 DAYS: No - Related Data Allergies/Adverse Reactions: Penicillins Allergy (Unknown, Verified 04/02/18 11:55) cephalexin monohydrate [From Keflex] Allergy (Verified 04/02/18 11:55) ciprofloxacin [From Cipro] Allergy (Verified 04/02/18 11:55) codeine Allergy (Verified 04/02/18 11:55) Iodinated Contrast- Oral and IV Dye [IV Dye, Iodine Containing] Allergy ( Verified 04/02/18 11:55) latex [Latex] Allergy (Verified 04/02/18 11:55) metformin Allergy (Verified 04/02/18 11:55) nitrofurantoin macrocrystalline [From Macrodantin] Allergy (Verified 04/02/18 11 :55) penicillin G Allergy (Verified 04/02/18 11:55) Sulfa (Sulfonamide Antibiotics) Allergy (Verified 04/02/18 11:55) tetracycline [Tetracycline] Allergy (Verified 04/02/18 11:55) nitroglycerin [From Nitrostat] Adverse Reaction (Verified 04/02/18 11:55) Past Medical History - Social History Smoking Status: Never Smoker Chew tobacco use (# tins/day): No Frequency of alcohol use: None Drug Abuse: None Family History: Arthritis, CVA, DM, Hyperlipidemia, Hypertension, Malignancy, Thyroid Disfunction Patient has suicidal ideation: No Patient has homicidal ideation: No - Past Medical History Cardiac Medical History: Reports: Hx Hypercholesterolemia, Hx Hypertension Pulmonary Medical History: Reports: Hx Asthma Neurological Medical History: Reports: Hx Cerebrovascular Accident, Hx Migraine Endocrine Medical History: Reports: Hx Diabetes Mellitus Type 1, Hx Diabetes Mellitus Type 2. Denies: Hx Hyperthyroidism, Hx Hypothyroidism Renal/ Medical History: Denies: Hx Peritoneal Dialysis Malignancy Medical History: Reports: Hx Cervical Cancer GI Medical History: Reports: Hx Gastroesophageal Reflux Disease. Denies: Hx Cirrhosis, Hx Hepatitis Musculoskeletal Medical History: Reports Hx Arthritis, Reports Hx Fibromyalgia, Reports Hx Musculoskeletal Deformity, Reports Hx Musculoskeletal Trauma Psychiatric Medical History: Reports: Hx Anxiety, Hx Depression Traumatic Medical History: Reports: Hx Fractures - Facial fractures Infectious Medical History: Denies: Hx Hepatitis Past Surgical History: Reports: Hx Abdominal Surgery - hernia, Hx Section - 2, Hx Cholecystectomy, Hx Hysterectomy, Hx Orthopedic Surgery - bilateral toes and elbows left knee twice, Hx Tubal Ligation, Other - Ventral hernia and pseudocyst removal. Denies: Hx Appendectomy - Immunizations Immunizations up to date: Yes Hx Diphtheria, Pertussis, Tetanus Vaccination: Yes Physical Exam - Vital signs Vitals: Temp Pulse Resp BP Pulse Ox 97.4 F 73 18 138/84 H 96 04/02/18 12:06 04/02/18 12:06 04/02/18 12:06 04/02/18 12:06 04/02/18 12:06 Course - Vital Signs Vital signs: Temp Pulse Resp BP Pulse Ox 97.4 F 73 18 138/84 H 96 04/02/18 12:06 04/02/18 12:06 04/02/18 12:06 04/02/18 12:06 04/02/18 12:06
[2018-04-02 13:15] LABS: ABSOLUTE BASOPHILS # (AUTO) 0.1 10^3/uL (0.0-0.2); ABSOLUTE EOSINOPHILS # (AUTO) 0.1 10^3/uL (0.0-0.6); ABSOLUTE MONOCYTES (AUTO) 0.4 10^3/uL (0.1-1.4); ABSOLUTE NEUT (AUTO) 3.1 10^3/uL (1.7-8.2); EOSINOPHILS % (AUTO) 1.9 % (0-6); HEMATOCRIT 43.9 % (36.0-47.0); HEMOGLOBIN 15.3 g/dL (12.0-15.5); LYMPHOCYTES % (AUTO) 34.5 % (13-45); MEAN CORPUSCULAR HGB CONC 34.8 g/dL (32.0-36.0); MEAN CORPUSCULAR VOLUME 81 fl (80-97); MONOCYTES % (AUTO) 7.8 % (3-13); PLATELET COUNT 217 10^3/uL (150-450); RED BLOOD COUNT 5.46 10^6/uL (3.72-5.28); RED CELL DISTRIBUTION WIDTH 13.9 % (11.5-14.0); SEGMENTED NEUTROPHILS % (AUTO) 54.8 % (42-78); TOTAL CELLS COUNTED % (AUTO) 100 %; WHITE BLOOD COUNT 5.7 10^3/uL (4.0-10.5)
[2018-04-02 13:40] LABS: ALANINE AMINOTRANSFERASE 20 U/L (9-52); ALBUMIN 4.5 g/dL (3.5-5.0); ALKALINE PHOSPHATASE 90 U/L (38-126); ANION GAP 10 (5-19); ASPARTATE AMINO TRANSFERASE 20 U/L (14-36); BILIRUBIN,DIRECT 0.2 mg/dL (0.0-0.4); BILIRUBIN,TOTAL 0.8 mg/dL (0.2-1.3); BLOOD UREA NITROGEN 12 mg/dL (7-20); CALCIUM 9.6 mg/dL (8.4-10.2); CARBON DIOXIDE 30 mmol/L (22-30); CHLORIDE 100 mmol/L (98-107); GLUCOSE 272 mg/dL (75-110); POTASSIUM 4.6 mmol/L (3.6-5.0); SODIUM 140.2 mmol/L (137-145); TOTAL PROTEIN 7.2 g/dL (6.3-8.2)
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
--- NOTE | 2018-04-02 14:07 | RADIOLOGY REPORT (SQ) ---
EXAM DESCRIPTION: CHEST SINGLE VIEW COMPLETED DATE/TIME: 04/02/2018 1:42 pm REASON FOR STUDY: jaw pain- cardiac workup. COMPARISON: 11/05/2015 EXAM PARAMETERS: NUMBER OF VIEWS: One view. TECHNIQUE: Single frontal radiographic view of the chest acquired. RADIATION DOSE: NA LIMITATIONS: None. FINDINGS: LUNGS AND PLEURA: No opacities, masses or pneumothorax. No pleural effusion. MEDIASTINUM AND HILAR STRUCTURES: No masses. Contour normal. HEART AND VASCULAR STRUCTURES: Heart normal in size. Normal vasculature. BONES: No acute findings. HARDWARE: None in the chest. OTHER: No other significant finding. IMPRESSION: NO ACUTE RADIOGRAPHIC FINDING IN THE CHEST. TECHNICAL DOCUMENTATION: JOB ID: [id number] [employer]- All Rights Reserved Reading location - IP/workstation name: [email or web address]
[2018-04-02 14:33] VITALS: BP 145/94
--- NOTE | 2018-04-02 20:45 | EKG REPORT ---
SEVERITY:- NORMAL ECG - SINUS RHYTHM : Confirmed by: Eileen Bellamy MD 02-Apr-2018 20:44:11
== END 2018-04-02 14:15 | disposition home or self-care (01) ==
LOC: ER 11:51
DX: M26.603 Bilateral temporomandibular joint disorder, unspecified (principal); J02.9 Acute pharyngitis, unspecified; R51 Headache; E78.00 Pure hypercholesterolemia, unspecified; I10 Essential (primary) hypertension; Z88.0 Allergy status to penicillin; Z88.3 Allergy status to other anti-infective agents; Z88.6 Allergy status to analgesic agent; Z91.040 Latex allergy status; Z90.49 Acquired absence of other specified parts of digestive tract; Z90.710 Acquired absence of both cervix and uterus
CPT/HCPCS: 36415; 71045; 80053; 84484; 85025; 93005; 93010; 99284

== ENCOUNTER 2018-06-02 13:44 | Emergency (ER) | payer SELFPAY ==
[2018-06-02] MEDS ORDERED: ACETAMINOPHEN 325 MG TABLET PO ONE (15:04)
--- NOTE | 2018-06-02 15:10 | ER Document Report ---
ED Extremity Problem, Lower - General Chief Complaint: Knee Pain Stated Complaint: FALL/KNEE/BACK PAIN Time Seen by Provider: 06/02/18 14:54 Mode of Arrival: Ambulatory Information source: Patient Notes: 58-year-old female presented to ED for complaint of left knee pain times 2-hour. She states she fell in the bathtub landing on her back but her front of her knee hurts her head hurts and her left shoulder hurts. There is no bruising no swelling no obvious injuries. Patient is able to move around freely. Patient is able to limp on her left knee. Patient is alert and oriented respirations regular and unlabored speaking in full sentences walks with a limp. TRAVEL OUTSIDE OF THE [place] IN LAST 30 DAYS: No - HPI Patient complains to provider of: Injury, Pain Location: Back - And head pain she states she landed on her back but the front of her head is deformed. Her front of her head looks normal there is no bruising no swelling., Knee - Left Occurred: Other - 2 hours before coming into the emergency room Where: Home, Indoors Onset/Duration: Intermittent Quality of pain: Achy, Sharp Severity: Severe Pain Level: 5 Context: Fell Recent injury: Yes Associated symptoms: Painful ambulation Exacerbated by: Hanging down, Movement, Walking Relieved by: Nothing - Related Data Allergies/Adverse Reactions: Penicillins Allergy (Unknown, Verified 04/02/18 11:55) cephalexin monohydrate [From Keflex] Allergy (Verified 04/02/18 11:55) ciprofloxacin [From Cipro] Allergy (Verified 04/02/18 11:55) codeine Allergy (Verified 04/02/18 11:55) Iodinated Contrast- Oral and IV Dye [IV Dye, Iodine Containing] Allergy (Verified 04/02/18 11:55) latex [Latex] Allergy (Verified 04/02/18 11:55) metformin Allergy (Verified 04/02/18 11:55) nitrofurantoin macrocrystalline [From Macrodantin] Allergy (Verified 04/02/18 11:55) penicillin G Allergy (Verified 04/02/18 11:55) Sulfa (Sulfonamide Antibiotics) Allergy (Verified 04/02/18 11:55) tetracycline [Tetracycline] Allergy (Verified 04/02/18 11:55) nitroglycerin [From Nitrostat] Adverse Reaction (Verified 04/02/18 11:55) Past Medical History - General Information source: Patient - Social History Smoking Status: Former Smoker Cigarette use (# per day): No Chew tobacco use (# tins/day): No Smoking Education Provided: No Frequency of alcohol use: None Drug Abuse: None Occupation: [employer] Lives with: Family Family History: Arthritis, CVA, DM, Hyperlipidemia, Hypertension, Malignancy, Thyroid Disfunction Patient has suicidal ideation: No Patient has homicidal ideation: No - Past Medical History Cardiac Medical History: Reports: Hx Hypercholesterolemia, Hx Hypertension Pulmonary Medical History: Reports: Hx Asthma EENT Medical History: Reports: None Neurological Medical History: Reports: Hx Cerebrovascular Accident, Hx Migraine Endocrine Medical History: Reports: Hx Diabetes Mellitus Type 2 Renal/ Medical History: Reports: None Malignancy Medical History: Reports: Hx Cervical Cancer GI Medical History: Reports: Hx Gastroesophageal Reflux Disease Musculoskeletal Medical History: Reports Hx Arthritis, Reports Hx Fibromyalgia, Reports Hx Musculoskeletal Deformity, Reports Hx Musculoskeletal Trauma Skin Medical History: Reports None Psychiatric Medical History: Reports: Hx Anxiety, Hx Depression Traumatic Medical History: Reports: Hx Fractures - Facial fractures bilateral toes elbow and left knee Infectious Medical History: Reports: None Past Surgical History: Reports: Hx Section - 2, Hx Cholecystectomy, Hx Hysterectomy, Hx Orthopedic Surgery - bilateral toes and elbows left knee twice, Hx Tubal Ligation, Other - Ventral hernia and pseudocyst removal - Immunizations Immunizations up to date: Yes Hx Diphtheria, Pertussis, Tetanus Vaccination: Yes Review of Systems - Review of Systems Constitutional: No symptoms reported EENT: No symptoms reported Cardiovascular: No symptoms reported Respiratory: No symptoms reported Gastrointestinal: No symptoms reported Genitourinary: No symptoms reported Female Genitourinary: No symptoms reported Musculoskeletal: Back pain, Joint pain, Joint swelling, Muscle pain, Muscle stiffness Skin: No symptoms reported Hematologic/Lymphatic: No symptoms reported Neurological/Psychological: No symptoms reported -: Yes All other systems reviewed and negative Physical Exam - Vital signs Vitals: Temp Pulse Resp BP Pulse Ox 98.7 F 94 16 138/72 H 98 06/02/18 13:52 06/02/18 13:52 06/02/18 13:52 06/02/18 13:52 06/02/18 13:52 Interpretation: Normal - General General appearance: Appears well, Alert - HEENT Head: Normocephalic, Atraumatic Eyes: Normal Pupils: PERRL - Respiratory Respiratory status: No respiratory distress Chest status: Nontender Breath sounds: Normal Chest palpation: Normal - Cardiovascular Rhythm: Regular Heart sounds: Normal auscultation Murmur: No - Abdominal Inspection: Normal Distension: No distension Bowel sounds: Normal Tenderness: Nontender Organomegaly: No organomegaly - Back Back: Tender, Vertebra tenderness - lumbar Notes: No signs or symptoms of cauda equina, no loss of control of bowel or bladder, no saddle anesthesia, no loss of control of lower extremities and no loss of sensation to lower extremities. - Extremities General upper extremity: Normal inspection, Nontender, Normal color, Normal ROM, Normal temperature General lower extremity: Normal inspection, Nontender, Normal color, Normal ROM, Normal temperature, Normal weight bearing. No: Yoel's sign - Neurological Neuro grossly intact: Yes Cognition: Normal Orientation: AAOx4 [place] Coma Scale Eye Opening: Spontaneous [place] Coma Scale Verbal: Oriented [place] Coma Scale Motor: Obeys Commands Naren Coma Scale Total: 15 Speech: Normal Motor strength normal: LUE, RUE, LLE, RLE Sensory: Normal - Psychological Associated symptoms: Normal affect, Normal mood - Skin Skin Temperature: Warm Skin Moisture: Dry Skin Color: Normal Course - Re-evaluation Re-evalutation: 06/02/18 17:12 X-rays were discussed with patient. Patient was given written report of x-ray. Patient was given a prescription for muscle relaxers. There is no acute inj uries to her shoulder or back. She was given instructions for exercises elevation ice and warm packs for her knee. She was also given instructions for her back pain with ice packs warm packs back exercises. Patient was instructed to follow-up with primary doctor. After performing a Medical Screening Examination, I estimate there is LOW risk for EXPANDING OR RUPTURED ABDOMINAL AORTIC ANEURYSM, CAUDA EQUINA SYNDROME, EPIDURAL MASS LESION, or HERNIATED DISK CAUSING SEVERE SPINAL STENOSIS, thus I consider the discharge disposition reasonable. I have reevaluated this patient multiple times and no significant life threatening changes are noted. The patient and I have discussed the diagnosis and risks, and we agree with discharging home and close follow-up. We also discussed returning to the Emergency Department immediately if new or worsening symptoms occur with the understanding that symptoms and presentations can change. We have discussed the symptoms which are most concerning (e.g., saddle anesthesia, urinary or bowel incontinence or retention, changing or worsening pain) that necessitate immediate return. - Vital Signs Vital signs: Temp Pulse Resp BP Pulse Ox 97.9 F 86 16 139/82 H 97 06/02/18 16:19 06/02/18 16:19 06/02/18 16:19 06/02/18 16:19 06/02/18 16:19 - Diagnostic Test Radiology reviewed: Image reviewed, Reports reviewed Discharge - Discharge Clinical Impression: Contusion of knee, right Qualifiers: Encounter type: initial encounter Qualified Code(s): S80.01XA - Contusion of right knee, initial encounter Fall Qualifiers: Encounter type: initial encounter Qualified Code(s): W19.XXXA - Unspecified fall, initial encounter Injury of left shoulder Qualifiers: Encounter type: initial encounter Qualified Code(s): S49.92XA - Unspecified injury of left shoulder and upper arm, initial encounter Lower back injury Qualifiers: Encounter type: initial encounter Qualified Code(s): S39.92XA - Unspecified injury of lower back, initial encounter Condition: Stable Disposition: HOME, SELF-CARE Instructions: Family Physicians / Practices Additional Instructions: CONTUSION: Your injury has resulted in a contusion -- a crushing of the deep tissues. No injury to important structures was detected during the physician's exam. Contusions vary in the amount of pain they cause, and in the length of time required for healing. Typically, the area will become bruised, and will remain painful to touch for two or three weeks. However, most patients are back to working and playing within a few days. After the initial period of rest and cold-packs, your symptoms (together with the doctor's recommendations) will determine how rapidly you can get back to full activity. Usually this means "do what feels okay, but don't do things that hurt." If re-examination was recommended, it's important to follow up as instructed. Call the doctor or return any time if pain increases, if swelling becomes severe, if you develop numbness or weakness in an injured extremity, or if any other alarming symptoms occur. Shoulder Injury You have injured your shoulder. This usually results from stretching or tearing of the tendons during trauma. Time and protection are required in order to heal properly. Many injuries are quite disabling, and should be taken seriously. Initial treatment includes cold packs and a sling to rest the shoulder. The physician has assessed the seriousness of your injury, and has outlined a treatment plan. Understand that this treatment may change, depending on how you progress. If a re-examination was recommended, it is important that you follow up as instructed. Some shoulder injuries (such as partial tear of the rotator cuff) are only suspected after you've failed to improve. Call us if there's severe pain, numbness, or loss of function. LOW BACK PAIN: Three out of every four people will have an episode of disabling back pain during their lifetime. Most commonly the pain is due to straining of the muscles and ligaments in the low back. Usual treatment includes: (1) Rest on a firm surface. Avoid lying on your stomach. (2) Ice pack the painful area. After a few days, gentle heat may be used intermittently to relax the area, or ice packs can be continued. (3) Medication may be needed -- muscle relaxers and antiinflammatory medicines are commonly used. (4) As the back improves, exercises are prescribed to strengthen the back and abdominal muscles. Your doctor will advise you on the proper care for your back at each stage in your recovery. You may be better in a few days -- or healing may take s everal weeks. If new symptoms of a "herniated disc" (radiation of pain, numbness, or tingling down the back of the leg or weakness in the leg) occur, you should be re-examined. Further testing may be necessary. MUSCLE RELAXERS: Muscle relaxing medications are usually prescribed for acute muscle spasm or injury to the neck and back. They are often combined with antiinflammatory pain medication for increased relief. You may stop the muscle relaxer when the pain and stiffness have improved. Start the medication again if spasms recur. Muscle relaxers may cause drowsiness, especially with the first dose. Do not operate machinery or drive while under the effects of the medication. Most muscle relaxers last up to 24 hours. Do not combine the medication with alcohol. ICE PACKS: Apply ice packs frequently against the painful area. Many different schedules are recommended, such as "20 minutes on, 20 minutes off" or "one hour ice, two hours rest." If you need to work, you may need to go longer between ice treatments. You should plan to have the area ice packed AT LEAST one fourth of the time. The ice should be applied over the wrap, tape, or splint, or over a layer of cloth -- not directly against the skin. Some ice bags have a built-in cloth and can be put directly on the skin. WARM PACKS: After approximately two days, apply gentle heat (such as a heating pad or hot water bottle) for about 20 to 30 minutes about every two hours -- at least four times daily. Warmth and elevation will help you make a more rapid recovery, and will ease the pain considerably. Do not use HOT heat, and never apply heat for longer than 30 minutes. The continuous heat can invisibly damage skin and muscles -- even when no burn is seen on the surface. Damaged muscles can make you MORE sore. USE OF TYLENOL (ACETAMINOPHEN): Acetaminophen may be taken for pain relief or fever control. It's much safer than aspirin, offering a wider range of "safe" dosages. It is safe during . Some brand names are Tylenol, Panadol, Datril, Anacin 3, Tempra, and Liquiprin. Acetaminophen can be repeated every four hours. The following are maximum recommended dosages: WEIGHT Dose Drops Elixir Chewable(80mg) (LBS.) drprs=droppers tsp=teaspoon 6 40 mg 0.4 ml (1/2) 6-11 80 mg 0.8 ml (full) tsp 1 tab 12-16 120 mg 1 1/2 drprs 3/4 tsp 1 1/2 tabs 17-23 160 mg 2 drprs 1 tsp 2 tabs 24-30 240 mg 3 drprs 1 1/2 tsp 3 tabs 30-35 320 mg 2 tsp 4 tabs 36-41 360 mg 2 1/4 tsp 4 1/2 tabs 42-47 400 mg 2 1/2 tsp 5 tabs 48-53 480 mg 3 tsp 6 tabs 54-59 520 mg 3 1/4 tsp 6 1/2 tabs 60-64 560 mg 3 1/2 tsp 7 tabs 65-70 600 mg 3 3/4 tsp 7 1/2 tabs 71-76 640 mg 4 tsp 8 tabs 77-82 720 mg 4 1/2 tsp 9 tabs 83-88 800 mg 5 tsp 10 tabs >89 pounds or adults 650 mg to 900 mg Acetaminophen can be repeated every four hours. Maximum dose not to exceed 4000 mg a day. These maximum recommended dosages are slightly higher than the dosages written on the product container, but these dosages are very safe and below the toxic dosage for acetaminophen. ICE & ELEVATION: Apply ice packs frequently against the painful area. Many different schedules are recommended, such as "20 minutes on, 20 minutes off" or "one hour ice, two hours rest." If you need to work, you may need to go longer between ice treatments. You should plan to have the area ice packed AT LEAST one-fourth of the time. The ice should be applied over the wrap, tape, or splint, or over a layer of cloth -- not directly against the skin. Some ice bags have a built-in cloth and can be put directly on the skin. Your injured part should be elevated as much as possible over the next 48 hours. Try to keep the injury above the level of the heart. Avoid use of the injured area. Elevation and rest will decrease the swelling. FOLLOW-UP CARE: If you have been referred to a physician for follow-up care, call the physicians office for an appointment as you were instructed or within the next two days. If you experience worsening or a significant change in your symptoms, notify the physician immediately or return to the Emergency Department at any time for re-evaluation. Prescriptions: Cyclobenzaprine HCl [Flexeril 10 mg Tablet] 10 mg PO TIDP PRN #15 tab PRN Reason: Forms: Elevated Blood Pressure, Return to Work Referrals: [facility] [Provider Group] - Follow up as needed
--- NOTE | 2018-06-02 15:52 | RADIOLOGY REPORT (SQ) ---
EXAM DESCRIPTION: SHOULDER LEFT 2 OR MORE VIEWS COMPLETED DATE/TIME: 06/02/2018 3:42 pm REASON FOR STUDY: fall pain COMPARISON: None. NUMBER OF VIEWS: Three views. TECHNIQUE: Internal rotation, external rotation, and Y view images acquired of the left shoulder. LIMITATIONS: None. FINDINGS: MINERALIZATION: Normal. BONES: No acute fracture or dislocation. No worrisome bone lesions. JOINTS: No dislocation. VISUALIZED LUNGS AND RIBS: No pneumothorax. No rib fracture. SOFT TISSUES: No radiopaque foreign body. OTHER: No other significant finding. IMPRESSION: NEGATIVE STUDY OF THE LEFT SHOULDER. NO RADIOGRAPHIC EVIDENCE OF ACUTE INJURY. TECHNICAL DOCUMENTATION: JOB ID: [id number] [employer]- All Rights Reserved Reading location - IP/workstation name: [email or web address]
--- NOTE | 2018-06-02 15:53 | RADIOLOGY REPORT (SQ) ---
EXAM DESCRIPTION: KNEE LEFT 4 VIEW COMPLETED DATE/TIME: 06/02/2018 3:42 pm REASON FOR STUDY: fall pain COMPARISON: None. NUMBER OF VIEWS: Four views. TECHNIQUE: AP, lateral, and both oblique radiographic images acquired of the left knee. LIMITATIONS: None. FINDINGS: MINERALIZATION: Normal. BONES: No acute fracture or dislocation. No worrisome bone lesions. JOINT: No effusion. SOFT TISSUES: Soft tissue swelling over the anterior knee. OTHER: No other significant finding. IMPRESSION: No fracture dislocation of left knee. Soft tissue swelling over the anterior knee. TECHNICAL DOCUMENTATION: JOB ID: [id number] [employer]- All Rights Reserved Reading location - IP/workstation name: [email or web address]
--- NOTE | 2018-06-02 15:54 | RADIOLOGY REPORT (SQ) ---
EXAM DESCRIPTION: L SPINE WHOLE COMPLETED DATE/TIME: 06/02/2018 3:42 pm REASON FOR STUDY: fall pain COMPARISON: 10/19/2017 NUMBER OF VIEWS: Five views including obliques. TECHNIQUE: AP, lateral, oblique, and sacral radiographic images acquired of the lumbar spine. LIMITATIONS: None. FINDINGS: MINERALIZATION: Normal. SEGMENTATION: Normal. No transitional anatomy. ALIGNMENT: Normal. VERTEBRAE: Maintained height. No fracture or worrisome bone lesion. DISCS: Preserved height. No significant osteophytes or end plate irregularity. POSTERIOR ELEMENTS: Pedicles and facets are intact. No pars defect or posterior arch defects. HARDWARE: None in the spine. PARASPINAL SOFT TISSUES: Normal. PELVIS: Intact as visualized. No fractures or worrisome bone lesions. SI joints intact. OTHER: No other significant finding. IMPRESSION: No fracture or dislocation of the lumbar spine. TECHNICAL DOCUMENTATION: JOB ID: [id number] [employer]- All Rights Reserved Reading location - IP/workstation name: [email or web address]
[2018-06-02 16:22] VITALS: BP 139/82
== END 2018-06-02 16:22 | disposition home or self-care (01) ==
LOC: ER 13:44
DX: S80.01XA Contusion of right knee, initial encounter (principal); S49.92XA Unspecified injury of left shoulder and upper arm, initial encounter; S39.92XA Unspecified injury of lower back, initial encounter; M25.562 Pain in left knee; R51 Headache; M25.512 Pain in left shoulder; M79.10 Myalgia, unspecified site; M54.9 Dorsalgia, unspecified; W18.2XXA Fall in (into) shower or empty bathtub, initial encounter; I10 Essential (primary) hypertension; Z88.0 Allergy status to penicillin; Z88.1 Allergy status to other antibiotic agents; Z88.5 Allergy status to narcotic agent; Z91.041 Radiographic dye allergy status; Z91.040 Latex allergy status; Z88.2 Allergy status to sulfonamides; Z87.891 Personal history of nicotine dependence; J45.909 Unspecified asthma, uncomplicated; E11.9 Type 2 diabetes mellitus without complications; Z85.41 Personal history of malignant neoplasm of cervix uteri; Z87.81 Personal history of (healed) traumatic fracture; Z98.890 Other specified postprocedural states
CPT/HCPCS: 72110; 99283

== ENCOUNTER 2018-07-06 13:27 | Emergency (ER) | payer SELFPAY ==
--- NOTE | 2018-07-06 14:55 | ER Document Report ---
ED Medical Screen (RME) - General Chief Complaint: Headache Stated Complaint: HEADACHE,BACKPAIN Time Seen by Provider: 07/06/18 14:46 Notes: Patient complaining of chest pain and shortness of breath, cough and generally not feeling well. Also complaining of a headache. I have greeted and performed a rapid initial assessment of this patient. A comprehensive ED assessment and evaluation of the patient, analysis of test results and completion of the medical decision making process will be conducted by additional ED providers. TRAVEL OUTSIDE OF THE [place] IN LAST 30 DAYS: No - Related Data Allergies/Adverse Reactions: Penicillins Allergy (Unknown, Verified 07/06/18 13:28) cephalexin monohydrate [From Keflex] Allergy (Verified 07/06/18 13:28) ciprofloxacin [From Cipro] Allergy (Verified 07/06/18 13:28) codeine Allergy (Verified 07/06/18 13:28) Iodinated Contrast- Oral and IV Dye [IV Dye, Iodine Containing] Allergy (Verified 07/06/18 13:28) latex [Latex] Allergy (Verified 07/06/18 13:28) metformin Allergy (Verified 07/06/18 13:28) nitrofurantoin macrocrystalline [From Macrodantin] Allergy (Verified 07/06/18 13:28) penicillin G Allergy (Verified 07/06/18 13:28) Sulfa (Sulfonamide Antibiotics) Allergy (Verified 07/06/18 13:28) tetracycline [Tetracycline] Allergy (Verified 07/06/18 13:28) nitroglycerin [From Nitrostat] Adverse Reaction (Verified 07/06/18 13:28) Past Medical History - Social History Chew tobacco use (# tins/day): No Frequency of alcohol use: None Drug Abuse: None Family history: Reviewed & Not Pertinent - Past Medical History Cardiac Medical History: Reports: Hx Hypercholesterolemia, Hx Hypertension Pulmonary Medical History: Reports: Hx Asthma Neurological Medical History: Reports: Hx Cerebrovascular Accident, Hx Migraine Endocrine Medical History: Reports: Hx Diabetes Mellitus Type 1, Hx Diabetes Mellitus Type 2. Denies: Hx Hyperthyroidism, Hx Hypothyroidism Renal/ Medical History: Denies: Hx Peritoneal Dialysis Malignancy Medical History: Reports: Hx Cervical Cancer GI Medical History: Reports: Hx Gastroesophageal Reflux Disease. Denies: Hx Cirrhosis, Hx Hepatitis Musculoskeltal Medical History: Reports Hx Arthritis, Reports Hx Fibromyalgia, Reports Hx Musculoskeletal Deformity, Reports Hx Musculoskeletal Trauma Psychiatric Medical History: Reports: Hx Anxiety, Hx Depression Traumatic Medical History: Reports: Hx Fractures - Facial fractures bilateral toes elbow and left knee Infectious Medical History: Denies: Hx Hepatitis Past Surgical History: Reports: Hx Abdominal Surgery - hernia, Hx Section - 2, Hx Cholecystectomy, Hx Hysterectomy, Hx Orthopedic Surgery - bilateral toes and elbows left knee twice, Hx Tubal Ligation, Other - Ventral hernia and pseudocyst removal. Denies: Hx Appendectomy - Immunizations Immunizations up to date: Yes Hx Diphtheria, Pertussis, Tetanus Vaccination: Yes Physical Exam - Vital signs Vitals: Temp Pulse Resp BP Pulse Ox 98.2 F 82 20 151/74 H 96 07/06/18 13:49 07/06/18 13:49 07/06/18 13:49 07/06/18 13:49 07/06/18 13:49 Course - Vital Signs Vital signs: Temp Pulse Resp BP Pulse Ox 98.2 F 82 20 151/74 H 96 07/06/18 13:49 07/06/18 13:49 07/06/18 13:49 07/06/18 13:49 07/06/18 13:49
--- NOTE | 2018-07-06 15:36 | RADIOLOGY REPORT (SQ) ---
EXAM DESCRIPTION: CHEST 2 VIEWS COMPLETED DATE/TIME: 07/06/2018 3:28 pm REASON FOR STUDY: cough, cp COMPARISON: 04/02/2018. EXAM PARAMETERS: NUMBER OF VIEWS: two views TECHNIQUE: Digital Frontal and Lateral radiographic views of the chest acquired. RADIATION DOSE: NA LIMITATIONS: none FINDINGS: LUNGS AND PLEURA: No opacities, masses or pneumothorax. No pleural effusion. MEDIASTINUM AND HILAR STRUCTURES: No masses or contour abnormalities. HEART AND VASCULAR STRUCTURES: Heart normal size. No evidence for failure. BONES: No acute findings. HARDWARE: None in the chest. OTHER: No other significant finding. IMPRESSION: NO ACUTE RADIOGRAPHIC FINDING IN THE CHEST. TECHNICAL DOCUMENTATION: JOB ID: [id number] [employer]- All Rights Reserved Reading location - IP/workstation name: [email or web address]
--- NOTE | 2018-07-06 15:56 | ER Document Report ---
ED General - General TRAVEL OUTSIDE OF THE [place] IN LAST 30 DAYS: No - General Chief Complaint: Headache Stated Complaint: HEADACHE,BACKPAIN Time Seen by Provider: 07/06/18 14:46 Primary Care Provider: [facility] [Provider Group] - Follow up as needed - [facility] Notes: Patient is a 58-year-old female who presents the emergency department complaining of nasal congestion/discharge, postnasal drip, sinus pressure, sinus headache, dry nonproductive cough that has been ongoing for the last 2 weeks. Patient states that she does have some soreness in her midsternal area is exacerbated with coughing and pushing on her chest. Patient is pain does not radiate otherwise. She is able to ambulate without any dyspnea on exertion or worsening pains. She has been using [id number] meds with no relief. No other concerns or complaints. She is eating and drinking without difficulty. She is urinating normally and having normal bowel movements. Denies any fever, neck pain, sore throat, palpitations, syncope, shortness of breath, wheeze, dyspnea, abdominal pain, nausea/vomiting/diarrhea, urinary retention, dysuria, hematuria, or rash. (BECKY BEJARANO) - Related Data Allergies/Adverse Reactions: Penicillins Allergy (Unknown, Verified 07/06/18 13:28) cephalexin monohydrate [From Keflex] Allergy (Verified 07/06/18 13:28) ciprofloxacin [From Cipro] Allergy (Verified 07/06/18 13:28) codeine Allergy (Verified 07/06/18 13:28) Iodinated Contrast- Oral and IV Dye [IV Dye, Iodine Containing] Allergy (Verified 07/06/18 13:28) latex [Latex] Allergy (Verified 07/06/18 13:28) metformin Allergy (Verified 07/06/18 13:28) nitrofurantoin macrocrystalline [From Macrodantin] Allergy (Verified 07/06/18 13:28) penicillin G Allergy (Verified 07/06/18 13:28) Sulfa (Sulfonamide Antibiotics) Allergy (Verified 07/06/18 13:28) tetracycline [Tetracycline] Allergy (Verified 07/06/18 13:28) nitroglycerin [From Nitrostat] Adverse Reaction (Verified 07/06/18 13:28) Past Medical History - Social History Smoking Status: Former Smoker Chew tobacco use (# tins/day): No Frequency of alcohol use: None Drug Abuse: None Family History: Arthritis, CVA, DM, Hyperlipidemia, Hypertension, Malignancy, Thyroid Disfunction Patient has suicidal ideation: No Patient has homicidal ideation: No - Past Medical History Cardiac Medical History: Reports: Hx Hypercholesterolemia, Hx Hypertension Pulmonary Medical History: Reports: Hx Asthma Neurological Medical History: Reports: Hx Cerebrovascular Accident, Hx Migraine Endocrine Medical History: Reports: Hx Diabetes Mellitus Type 1, Hx Diabetes Mellitus Type 2. Denies: Hx Hyperthyroidism, Hx Hypothyroidism Renal/ Medical History: Denies: Hx Peritoneal Dialysis Malignancy Medical History: Reports: Hx Cervical Cancer GI Medical History: Reports: Hx Gastroesophageal Reflux Disease. Denies: Hx Cirrhosis, Hx Hepatitis Musculoskeletal Medical History: Reports Hx Arthritis, Reports Hx Fibromyalgia, Reports Hx Musculoskeletal Deformity, Reports Hx Musculoskeletal Trauma Psychiatric Medical History: Reports: Hx Anxiety, Hx Depression Traumatic Medical History: Reports: Hx Fractures - Facial fractures bilateral toes elbow and left knee Infectious Medical History: Denies: Hx Hepatitis Past Surgical History: Reports: Hx Abdominal Surgery - hernia, Hx Section - 2, Hx Cholecystectomy, Hx Hysterectomy, Hx Orthopedic Surgery - bilateral toes and elbows left knee twice, Hx Tubal Ligation, Other - Ventral hernia and pseudocyst removal. Denies: Hx Appendectomy - Immunizations Immunizations up to date: Yes Hx Diphtheria, Pertussis, Tetanus Vaccination: Yes Review of Systems - Review of Systems -: Yes All other systems reviewed and negative Physical Exam - Vital signs Vitals: Temp Pulse Resp BP Pulse Ox 98.2 F 82 20 151/74 H 96 07/06/18 13:49 07/06/18 13:49 07/06/18 13:49 07/06/18 13:49 07/06/18 13:49 - Notes Notes: PHYSICAL EXAMINATION: GENERAL: Well-appearing, well-nourished and in no acute distress. HEAD: Atraumatic, normocephalic. EYES: Pupils equal round and reactive to light, extraocular movements intact, sclera anicteric, conjunctiva are normal. ENT: EAC clear b/l. TM's intact b/l without erythema, fluid, or perforation. Nares patent and with yellow discharge. oropharynx no erythema without exudates. No tonsilar hypertrophy without erythema or exudate. No palatine shift. Uvula midline. No tongue protrusion. No drooling, hoarseness, or airway compromise. Moist mucous membranes. + mild left sinus tenderness. NECK: Normal range of motion, supple without lymphadenopathy Chest: + reproducible tenderness to palpation of the sternal area and reproducible with arm extension/abduction. LUNGS: Breath sounds clear to auscultation bilaterally and equal. No wheezes rales or rhonchi. HEART: Regular rate and rhythm without murmurs, rubs, gallops. ABDOMEN: Soft, nontender, nondistended abdomen. No guarding, no rebound. No masses appreciated. Normal bowel sounds present. No CVA tenderness bilaterally. Musculoskeletal: FROM to passive/active. Strength 5+/5. Yoel neg. No asymmetry to LE's. Extremities: No cyanosis, clubbing, or edema b/l. Peripheral pulses 2+. Capillary refill less than 3 seconds. NEUROLOGICAL: Normal speech, normal gait. PSYCH: Normal mood, normal affect. SKIN: Warm, Dry, normal turgor, no rashes or lesions noted. (BECKY BEJARANO) Course - Re-evaluation Re-evalutation: 07/06/18 17:54 Patient is an afebrile, well-hydrated 58-year-old female who presents to the ED with acute URI/sinusitis and chest wall pain. Vitals are acceptable without any significant tachycardia, tachypnea, or hypoxia. PE is otherwise unremarkable aside from the reproducible chest wall tenderness. Patient is nontoxic- appearing and is tolerating p.o. without any difficulties. Pt has been coughing with URI symptoms. EKG/cardiac enzymes, chest x-ray are all unremarkable for any acute pathology. Wells score of 0. Patient does not have any chest pain, dyspnea, or shortness of breath. Patient's presentation and symptomatology creates low suspicion for ACS, PE, pneumothorax, pericarditis, dissection, respiratory compromise, severe dehydration, sepsis, meningitis, or other sy [facility] emergent condition at this time. Patient is aware that this condition can change from initial presentation and she needs to monitor symptoms closely and seek medical attention for any acute changes. Pt has already had symptoms for 2 weeks. I will send her home with a pocket Rx for zithromax which she may fill with ongoing/worsening symptoms x2-3 days. Recommend conservative measures for symptoms. Recheck with your PCM in 2-3 days. Consider consult with Cardiology. Return to the ED with any worsening/concerning symptoms otherwise as reviewed in discharge. Patient is in agreement. (BECKY BEJARANO) - Vital Signs Vital signs: Temp Pulse Resp BP Pulse Ox 98.7 F 75 18 138/78 H 99 07/06/18 18:15 07/06/18 18:15 07/06/18 18:15 07/06/18 18:15 07/06/18 18:15 Discharge - Discharge Clinical Impression: Cough, Chest wall pain, Nasal congestion with rhinorrhea, Sinus pain Disposition: HOME, SELF-CARE Additional Instructions: Maintain adequate fluid intake Take meds as directed tylenol/ibuprofen as needed over the counter cold medication as needed for symptoms Humidified air may help Wash your hands regularly Wear a mask when coughing F/u: with your PCM in 2-3 days for a recheck Return to the ED with any fever, worsening pain, chest pain, palpitations, syncope, worsening ANDERSEN, neck pain/stiffness, shortness of breath, wheezing, drooling, trouble swallowing/breathing, abdominal pain, n/v/d, rash, or worsening/concerning symptoms otherwise. Prescriptions: Benzonatate [Tessalon Perle 100 mg Capsule] 100 mg PO Q8HP PRN #15 cap PRN Reason: RX: Azithromycin [Zithromax 250 mg Tablet] 250 mg PO ASDIR PRN #6 tablet PRN Reason: Forms: Elevated Blood Pressure Referrals: [facility] [Provider Group] - Follow up as needed
--- NOTE | 2018-07-06 16:59 | EKG REPORT ---
SEVERITY:- ABNORMAL ECG - SINUS RHYTHM INFERIOR INFARCT, OLD CONSIDER ANTERIOR INFARCT : Confirmed by: Jennifer Burgess 06-Jul-2018 16:58:44
[2018-07-06 18:17] VITALS: BP 138/78
== END 2018-07-06 18:15 | disposition home or self-care (01) ==
LOC: ER 13:27
DX: R07.89 Other chest pain (principal); R05 Cough; R09.81 Nasal congestion; R09.89 Other specified symptoms and signs involving the circulatory and respiratory systems; R51 Headache; M54.9 Dorsalgia, unspecified; R09.82 Postnasal drip; Z87.891 Personal history of nicotine dependence; I10 Essential (primary) hypertension; J45.909 Unspecified asthma, uncomplicated; E11.9 Type 2 diabetes mellitus without complications
CPT/HCPCS: 36415; 71046; 84484; 93005; 93010; 99284

== ENCOUNTER 2018-08-16 02:26 | Emergency (ER) | payer SELFPAY ==
[2018-08-16] MEDS ORDERED: NORMAL SALINE 1000 ML 1,000 ML IV ONE ×2 (03:28→05:40)
[2018-08-16] MEDS ORDERED: METOCLOPRAMIDE HCL INJ/PF 10 MG/2 ML SDV IV ONE (03:29)
[2018-08-16] MEDS ORDERED: MORPHINE SULFATE 10 MG/ML INJ IV ONE (03:29)
--- NOTE | 2018-08-16 03:30 | ER Document Report ---
ED GI/ - General Chief Complaint: Abdominal Pain Stated Complaint: FLANK PAIN Time Seen by Provider: 08/16/18 03:20 Notes: Patient is a 58-year-old female that comes to the emergency department for chief complaint of left upper quadrant pain. Pain began today, is sharp, radiates around to the back. She states she has both a history of pancreatitis and kidney stones. She denies alcohol. She has had a cholecystectomy. She denies dysuria, fever/chills. She reports a lot of nausea but denies vomiting. She also has a history of insulin-dependent diabetes, tubal ligation, hernia repair. TRAVEL OUTSIDE OF THE [place] IN LAST 30 DAYS: No - Related Data Allergies/Adverse Reactions: Penicillins Allergy (Unknown, Verified 08/16/18 02:28) cephalexin monohydrate [From Keflex] Allergy (Verified 08/16/18 02:28) ciprofloxacin [From Cipro] Allergy (Verified 08/16/18 02:28) codeine Allergy (Verified 08/16/18 02:28) Iodinated Contrast- Oral and IV Dye [IV Dye, Iodine Containing] Allergy (Verified 08/16/18 02:28) latex [Latex] Allergy (Verified 08/16/18 02:28) metformin Allergy (Verified 08/16/18 02:28) nitrofurantoin macrocrystalline [From Macrodantin] Allergy (Verified 08/16/18 02:28) penicillin G Allergy (Verified 08/16/18 02:28) Sulfa (Sulfonamide Antibiotics) Allergy (Verified 08/16/18 02:28) tetracycline [Tetracycline] Allergy (Verified 08/16/18 02:28) nitroglycerin [From Nitrostat] Adverse Reaction (Verified 08/16/18 02:28) Past Medical History - General Information source: Patient - Social History Smoking Status: Never Smoker Frequency of alcohol use: None Drug Abuse: None Lives with: Family Family History: Arthritis, CVA, DM, Hyperlipidemia, Hypertension, Malignancy, Thyroid Disfunction - Past Medical History Cardiac Medical History: Reports: Hx Hypercholesterolemia, Hx Hypertension Pulmonary Medical History: Reports: Hx Asthma Neurological Medical History: Reports: Hx Cerebrovascular Accident, Hx Migraine Endocrine Medical History: Reports: Hx Diabetes Mellitus Type 2. Denies: Hx Hyperthyroidism, Hx Hypothyroidism Renal/ Medical History: Denies: Hx Peritoneal Dialysis Malignancy Medical History: Reports: Hx Cervical Cancer GI Medical History: Reports: Hx Gastroesophageal Reflux Disease. Denies: Hx Cirrhosis, Hx Hepatitis Musculoskeletal Medical History: Reports Hx Arthritis, Reports Hx Fibromyalgia, Reports Hx Musculoskeletal Deformity, Reports Hx Musculoskeletal Trauma Psychiatric Medical History: Reports: Hx Anxiety, Hx Depression Traumatic Medical History: Reports: Hx Fractures - Facial fractures bilateral toes elbow and left knee Infectious Medical History: Denies: Hx Hepatitis Past Surgical History: Reports: Hx Abdominal Surgery - hernia, Hx Section - 2, Hx Cholecystectomy, Hx Hysterectomy, Hx Orthopedic Surgery - bilateral toes and elbows left knee twice, Hx Tubal Ligation, Other - Ventral hernia and pseudocyst removal. Denies: Hx Appendectomy - Immunizations Immunizations up to date: Yes Hx Diphtheria, Pertussis, Tetanus Vaccination: Yes Review of Systems - Review of Systems Constitutional: No symptoms reported EENT: No symptoms reported Cardiovascular: No symptoms reported Respiratory: No symptoms reported Gastrointestinal: See HPI Genitourinary: No symptoms reported Female Genitourinary: No symptoms reported Musculoskeletal: No symptoms reported Skin: No symptoms reported Hematologic/Lymphatic: No symptoms reported Neurological/Psychological: No symptoms reported Physical Exam - Vital signs Vitals: Temp Pulse Resp BP Pulse Ox 98.2 F 90 16 159/91 H 98 08/16/18 03:20 08/16/18 03:20 08/16/18 03:20 08/16/18 03:20 08/16/18 03:20 - Notes Notes: GENERAL: Alert, interacts well. No acute distress. HEAD: Normocephalic, atraumatic. EYES: Pupils equal, round, and reactive to light. Extraocular movements intact. ENT: Oral mucosa dry, tongue midline. Oropharynx unremarkable. Airway patent. Nares patent, no nasal septal hematoma, TM's intact. NECK: Full range of motion. Supple. Trachea midline. LUNGS: Clear to auscultation bilaterally, no wheezes, rales, or rhonchi. No respiratory distress. HEART: Regular rate and rhythm. No murmur ABDOMEN: Left upper quadrant pain, mild epigastric pain, otherwise unremarkable. No guarding or rigidity. GENITOURINARY: Deferred EXTREMITIES: Moves all 4 extremities spontaneously. No edema, normal radial and dorsalis pedis pulses bilaterally. No cyanosis. BACK: no cervical, thoracic, lumbar midline tenderness. No saddle anesthesia, normal distal neurovascular exam. NEUROLOGICAL: Alert and oriented x3. Normal speech. [cranial nerves II through XII grossly intact]. PSYCH: Normal affect, normal mood. SKIN: Warm, dry, normal turgor. No rashes or lesions noted. Course - Re-evaluation Re-evalutation: Patient with left upper quadrant pain on exam, remaining examination and. Vital signs unremarkable. Patient does have dry mucous membranes. Given IV fluids, patient was initially given small amount of pain medicine with nausea, however on additional record reading and evaluation patient was noted to have gastroparesis. On reevaluation she still states she is nauseated and does not feel better. She was given haloperidol IM. Given additional fluids. CBC unremarkable, chemistry shows hyperglycemia without acidosis, lipase is not elevated. Urinalysis shows dehydration but is otherwise unremarkable. On reexamination patient states she feels much better. She drank a whole cup of fluid, she states she is hungry, she is requesting to go home. She requests Zofran, states she does the best with this. Discussed follow-up and return precautions. Patient states satisfaction and agreement. - Vital Signs Vital signs: Temp Pulse Resp BP Pulse Ox 98.5 F 79 16 135/82 H 96 08/16/18 08:26 08/16/18 08:26 08/16/18 08:26 08/16/18 08:00 08/16/18 08:00 - Laboratory Result Diagrams: 08/16/18 03:25 08/16/18 03:25 Laboratory results interpreted by me: 08/16/18 08/16/18 08/16/18 03:25 03:25 07:31 Sodium 136.3 L Chloride 96 L Creatinine 0.50 L Glucose 419 H* POC Glucose 256 H Urine Glucose (UA) >=500 H Ur Leukocyte Esterase TRACE H Discharge - Discharge Clinical Impression: Nausea, Upper abdominal pain Uncontrolled diabetes mellitus Qualifiers: Diabetes mellitus type: other specified (including DAVY) Glycemic state: with hyperglycemia Qualified Code(s): E13.65 - Other specified diabetes mellitus with hyperglycemia Condition: Stable Disposition: HOME, SELF-CARE Additional Instructions: Continue rehydration at home. Take Zofran if needed for nausea. Remember to always take your insulin. Follow-up close with primary care. Come back if you are worse including vomiting, return or worsening abdominal pain, or any other concerning or worsening symptoms. Prescriptions: Ondansetron [Zofran Odt 4 mg Tablet] 1 - 2 tab PO Q4H PRN #30 tab.rapdis PRN Reason: For Nausea/Vomiting
[2018-08-16 03:42] LABS: ABSOLUTE EOSINOPHILS # (AUTO) 0.2 10^3/uL (0.0-0.6); ABSOLUTE LYMPHOCYTES (AUTO) 2.5 10^3/uL (0.5-4.7); ABSOLUTE MONOCYTES (AUTO) 0.5 10^3/uL (0.1-1.4); ABSOLUTE NEUT (AUTO) 2.8 10^3/uL (1.7-8.2); BASOPHILS % (AUTO) 0.7 % (0-2); EOSINOPHILS % (AUTO) 2.8 % (0-6); HEMATOCRIT 41.9 % (36.0-47.0); HEMOGLOBIN 14.7 g/dL (12.0-15.5); LYMPHOCYTES % (AUTO) 41.1 % (13-45); MEAN CORPUSCULAR HEMOGLOBIN 28.6 pg (27.0-33.4); MEAN CORPUSCULAR HGB CONC 35.2 g/dL (32.0-36.0); MEAN CORPUSCULAR VOLUME 81 fl (80-97); MONOCYTES % (AUTO) 8.9 % (3-13); PLATELET COUNT 233 10^3/uL (150-450); RED BLOOD COUNT 5.15 10^6/uL (3.72-5.28); RED CELL DISTRIBUTION WIDTH 13.5 % (11.5-14.0); SEGMENTED NEUTROPHILS % (AUTO) 46.5 % (42-78); TOTAL CELLS COUNTED % (AUTO) 100 %; WHITE BLOOD COUNT 6.1 10^3/uL (4.0-10.5)
[2018-08-16 03:43] LABS: APPEARANCE,URINE CLEAR; BILIRUBIN,URINE NEGATIVE (NEGATIVE); COLOR,URINE STRAW; GLUCOSE, URINE >=500 mg/dL (NEGATIVE); KETONES,URINE NEGATIVE (NEGATIVE); LEUKOCYTE ESTERASE,URINE TRACE (NEGATIVE); NITRITE,URINE NEGATIVE (NEGATIVE); PROTEIN,URINE NEGATIVE (NEGATIVE); URINE SPECIFIC GRAVITY 1.031; UROBILINOGEN,URINE NEGATIVE mg/dL (<2.0)
[2018-08-16 03:51] LABS: ALANINE AMINOTRANSFERASE 27 U/L (9-52); ALBUMIN 4.6 g/dL (3.5-5.0); ALKALINE PHOSPHATASE 82 U/L (38-126); ANION GAP 10 (5-19); ASPARTATE AMINO TRANSFERASE 18 U/L (14-36); BILIRUBIN,DIRECT 0.2 mg/dL (0.0-0.4); BILIRUBIN,TOTAL 0.5 mg/dL (0.2-1.3); BLOOD UREA NITROGEN 12 mg/dL (7-20); CALCIUM 9.7 mg/dL (8.4-10.2); CARBON DIOXIDE 30 mmol/L (22-30); CHLORIDE 96 mmol/L (98-107); LIPASE 143.4 U/L (23-300); SODIUM 136.3 mmol/L (137-145); TOTAL PROTEIN 7.4 g/dL (6.3-8.2)
[2018-08-16 03:59] LABS: GLUCOSE 419 mg/dL (75-110)
[2018-08-16] MEDS ORDERED: INSULIN REG, HUMAN 100 UNIT/ML 3 ML VIAL (PYX) SUBCUT ONE (04:01)
[2018-08-16] MEDS ORDERED: HALOPERIDOL LACTATE INJ 5 MG/1 ML VIAL IM ONE (05:45)
[2018-08-16] MEDS ORDERED: ONDANSETRON ODT 4 MG TAB (6 TAB/ER DISP) PO PRN (07:36)
[2018-08-16 08:13] VITALS: BP 135/82
--- NOTE | 2018-08-16 08:31 | EKG REPORT ---
SEVERITY:- NORMAL ECG - SINUS RHYTHM : Confirmed by: Rakesh Hernandez MD 16-Aug-2018 08:30:17
== END 2018-08-16 08:27 | disposition home or self-care (01) ==
LOC: ER 02:26
DX: E13.65 Other specified diabetes mellitus with hyperglycemia (principal); R10.12 Left upper quadrant pain; R11.0 Nausea; M54.9 Dorsalgia, unspecified; R10.9 Unspecified abdominal pain; I10 Essential (primary) hypertension; J45.909 Unspecified asthma, uncomplicated; Z79.4 Long term (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 of insulin
CPT/HCPCS: 93005; 99284; 96372; 96361; 96374; 96375; 36415; 82962; 83690; 85025; 80053; 81001; 93010; J1630; J2765; J2270; J1815; J7030

== ENCOUNTER 2018-09-08 12:55 | Emergency (ER) | payer SELFPAY ==
[2018-09-08] MEDS ORDERED: ASPIRIN 81 MG TABLET, CHEWABLE PO ONE (14:00)
--- NOTE | 2018-09-08 14:03 | ER Document Report ---
ED Medical Screen (RME) - General Chief Complaint: Chest Pain Stated Complaint: CHEST PAIN Time Seen by Provider: 09/08/18 13:56 Mode of Arrival: Ambulatory Information source: Patient Notes: Patient presents emergency department patient presents emergency department with complaints of chest pain on and off for the past week. Denies other symptoms such as nausea vomiting diarrhea fever. Denies cardiac history. Also complains of a headache. EKG shows sinus rhythm. Patient does have a heart murmur and she is aware of this. Respiratory rate even and unlabored. Patient reports she took ibuprofen without relief of symptoms. I have greeted and performed a rapid initial assessment of this patient. A comprehensive ED assessment and evaluation of the patient, analysis of test results and completion of the medical decision making process will be conducted by additional ED providers. TRAVEL OUTSIDE OF THE [place] IN LAST 30 DAYS: No - Related Data Allergies/Adverse Reactions: Penicillins Allergy (Unknown, Verified 09/08/18 13:17) cephalexin monohydrate [From Keflex] Allergy (Verified 09/08/18 13:17) ciprofloxacin [From Cipro] Allergy (Verified 09/08/18 13:17) codeine Allergy (Verified 09/08/18 13:17) Iodinated Contrast- Oral and IV Dye [IV Dye, Iodine Containing] Allergy (Verified 09/08/18 13:17) latex [Latex] Allergy (Verified 09/08/18 13:17) metformin Allergy (Verified 09/08/18 13:17) nitrofurantoin macrocrystalline [From Macrodantin] Allergy (Verified 09/08/18 13:17) penicillin G Allergy (Verified 09/08/18 13:17) Sulfa (Sulfonamide Antibiotics) Allergy (Verified 09/08/18 13:17) tetracycline [Tetracycline] Allergy (Verified 09/08/18 13:17) nitroglycerin [From Nitrostat] Adverse Reaction (Verified 09/08/18 13:17) Past Medical History - Social History Family history: Reviewed & Not Pertinent - Past Medical History Cardiac Medical History: Reports: Hx Hypercholesterolemia, Hx Hypertension Pulmonary Medical History: Reports: Hx Asthma Neurological Medical History: Reports: Hx Cerebrovascular Accident, Hx Migraine Endocrine Medical History: Reports: Hx Diabetes Mellitus Type 1, Hx Diabetes Mellitus Type 2. Denies: Hx Hyperthyroidism, Hx Hypothyroidism Renal/ Medical History: Denies: Hx Peritoneal Dialysis Malignancy Medical History: Reports: Hx Cervical Cancer GI Medical History: Reports: Hx Gastroesophageal Reflux Disease. Denies: Hx Cirrhosis, Hx Hepatitis Musculoskeltal Medical History: Reports Hx Arthritis, Reports Hx Fibromyalgia, Reports Hx Musculoskeletal Deformity, Reports Hx Musculoskeletal Trauma Psychiatric Medical History: Reports: Hx Anxiety, Hx Depression Traumatic Medical History: Reports: Hx Fractures - Facial fractures bilateral toes elbow and left knee Infectious Medical History: Denies: Hx Hepatitis Past Surgical History: Reports: Hx Abdominal Surgery - hernia, Hx Section - 2, Hx Cholecystectomy, Hx Hysterectomy, Hx Orthopedic Surgery - bila teral toes and elbows left knee twice, Hx Tubal Ligation, Other - Ventral hernia and pseudocyst removal. Denies: Hx Appendectomy - Immunizations Immunizations up to date: Yes Hx Diphtheria, Pertussis, Tetanus Vaccination: Yes Physical Exam - Vital signs Vitals: Temp Pulse Resp BP Pulse Ox 98.1 F 85 18 162/87 H 94 09/08/18 13:30 09/08/18 13:30 09/08/18 13:30 09/08/18 13:30 09/08/18 13:30 Course - Vital Signs Vital signs: Temp Pulse Resp BP Pulse Ox 98.1 F 85 18 162/87 H 94 09/08/18 13:30 09/08/18 13:30 09/08/18 13:30 09/08/18 13:30 09/08/18 13:30
--- NOTE | 2018-09-08 14:23 | RADIOLOGY REPORT (SQ) ---
EXAM DESCRIPTION: CHEST 2 VIEWS COMPLETED DATE/TIME: 09/08/2018 2:14 pm REASON FOR STUDY: chest pain COMPARISON: 07/06/2018 EXAM PARAMETERS: NUMBER OF VIEWS: two views TECHNIQUE: Digital Frontal and Lateral radiographic views of the chest acquired. RADIATION DOSE: NA LIMITATIONS: none FINDINGS: LUNGS AND PLEURA: No opacities, masses or pneumothorax. No pleural effusion. MEDIASTINUM AND HILAR STRUCTURES: No masses or contour abnormalities. HEART AND VASCULAR STRUCTURES: Heart normal size. No evidence for failure. BONES: No acute findings. HARDWARE: None in the chest. OTHER: No other significant finding. IMPRESSION: NO ACUTE RADIOGRAPHIC FINDING IN THE CHEST. TECHNICAL DOCUMENTATION: JOB ID: [id number] [employer]- All Rights Reserved Reading location - IP/workstation name: [email or web address]
[2018-09-08 14:40] LABS: ABSOLUTE EOSINOPHILS # (AUTO) 0.2 10^3/uL (0.0-0.6); ABSOLUTE LYMPHOCYTES (AUTO) 2.1 10^3/uL (0.5-4.7); ABSOLUTE MONOCYTES (AUTO) 0.5 10^3/uL (0.1-1.4); ABSOLUTE NEUT (AUTO) 4.8 10^3/uL (1.7-8.2); BASOPHILS % (AUTO) 0.6 % (0-2); HEMATOCRIT 44.6 % (36.0-47.0); HEMOGLOBIN 15.6 g/dL (12.0-15.5); LYMPHOCYTES % (AUTO) 27.7 % (13-45); MEAN CORPUSCULAR HGB CONC 34.9 g/dL (32.0-36.0); MEAN CORPUSCULAR VOLUME 80 fl (80-97); MONOCYTES % (AUTO) 6.6 % (3-13); PLATELET COUNT 231 10^3/uL (150-450); RED BLOOD COUNT 5.57 10^6/uL (3.72-5.28); RED CELL DISTRIBUTION WIDTH 13.3 % (11.5-14.0); SEGMENTED NEUTROPHILS % (AUTO) 63.1 % (42-78); TOTAL CELLS COUNTED % (AUTO) 100 %; WHITE BLOOD COUNT 7.7 10^3/uL (4.0-10.5)
[2018-09-08 14:47] LABS: APPEARANCE,URINE CLEAR; BILIRUBIN,URINE NEGATIVE (NEGATIVE); COLOR,URINE STRAW; GLUCOSE, URINE >=500 mg/dL (NEGATIVE); KETONES,URINE NEGATIVE (NEGATIVE); LEUKOCYTE ESTERASE,URINE SMALL (NEGATIVE); NITRITE,URINE NEGATIVE (NEGATIVE); PROTEIN,URINE NEGATIVE (NEGATIVE); URINE SPECIFIC GRAVITY 1.029; UROBILINOGEN,URINE NEGATIVE mg/dL (<2.0)
[2018-09-08 15:11] LABS: ALANINE AMINOTRANSFERASE 27 U/L (9-52); ALBUMIN 4.6 g/dL (3.5-5.0); ALKALINE PHOSPHATASE 82 U/L (38-126); ANION GAP 11 (5-19); ASPARTATE AMINO TRANSFERASE 18 U/L (14-36); BILIRUBIN,DIRECT 0.2 mg/dL (0.0-0.4); BILIRUBIN,TOTAL 0.6 mg/dL (0.2-1.3); BLOOD UREA NITROGEN 14 mg/dL (7-20); CALCIUM 10.6 mg/dL (8.4-10.2); CARBON DIOXIDE 28 mmol/L (22-30); CHLORIDE 98 mmol/L (98-107); CREATINE KINASE 33 U/L (30-135); GLUCOSE 357 mg/dL (75-110); LIPASE 154.6 U/L (23-300); POTASSIUM 4.3 mmol/L (3.6-5.0); SODIUM 136.5 mmol/L (137-145); TOTAL PROTEIN 7.8 g/dL (6.3-8.2)
--- NOTE | 2018-09-08 15:39 | ER Document Report ---
ED General - General Chief Complaint: Chest Pain Stated Complaint: CHEST PAIN Time Seen by Provider: 09/08/18 13:56 Mode of Arrival: Ambulatory Information source: Patient, [facility] Records Notes: 58-year-old female with hypertension, hyperlipidemia, asthma, type 2 diabetes presents with 1 week of intermittent stabbing chest pain, nasal congestion, sore throat, ear pain, headache. Patient also complaining of intermittent shortness of breath worse with laying flat. She states that she has had significant nasal drainage. She denies any fever, chills, nausea, vomiting, leg swelling, history of PE, DVT, recent surgery, recent travel, estrogen use TRAVEL OUTSIDE OF THE [place] IN LAST 30 DAYS: No - HPI Onset: Last week Onset/Duration: Intermittent Quality of pain: Stabbing Associated symptoms: Body/muscle aches, Chest pain, Nonproductive cough, Earache, Headache, Sinus pain/drainage, Shortness of breath, Sore throat. denies: Hurts to breath, Leg swelling, Nausea, Vomiting Exacerbated by: Supine Relieved by: Denies Similar symptoms previously: No Recently seen / treated by doctor: No - Related Data Allergies/Adverse Reactions: Penicillins Allergy (Unknown, Verified 09/08/18 13:17) cephalexin monohydrate [From Keflex] Allergy (Verified 09/08/18 13:17) ciprofloxacin [From Cipro] Allergy (Verified 09/08/18 13:17) codeine Allergy (Verified 09/08/18 13:17) Iodinated Contrast- Oral and IV Dye [IV Dye, Iodine Containing] Allergy (Verified 09/08/18 13:17) latex [Latex] Allergy (Verified 09/08/18 13:17) metformin Allergy (Verified 09/08/18 13:17) nitrofurantoin macrocrystalline [From Macrodantin] Allergy (Verified 09/08/18 13:17) penicillin G Allergy (Verified 09/08/18 13:17) Sulfa (Sulfonamide Antibiotics) Allergy (Verified 09/08/18 13:17) tetracycline [Tetracycline] Allergy (Verified 09/08/18 13:17) nitroglycerin [From Nitrostat] Adverse Reaction (Verified 09/08/18 13:17) Past Medical History - General Information source: Patient - Social History Smoking Status: Former Smoker Frequency of alcohol use: None Drug Abuse: None Lives with: Spouse/Significant other Family History: Arthritis, CVA, DM, Hyperlipidemia, Hypertension, Malignancy, Thyroid Disfunction Patient has suicidal ideation: No Patient has homicidal ideation: No - Past Medical History Cardiac Medical History: Reports: Hx Hypercholesterolemia, Hx Hypertension Pulmonary Medical History: Reports: Hx Asthma Neurological Medical History: Reports: Hx Cerebrovascular Accident, Hx Migraine Endocrine Medical History: Reports: Hx Diabetes Mellitus Type 1, Hx Diabetes Mellitus Type 2. Denies: Hx Hyperthyroidism, Hx Hypothyroidism Renal/ Medical History: Denies: Hx Peritoneal Dialysis Malignancy Medical History: Reports: Hx Cervical Cancer GI Medical History: Reports: Hx Gastroesophageal Reflux Disease. Denies: Hx Cirrhosis, Hx Hepatitis Musculoskeletal Medical History: Reports Hx Arthritis, Reports Hx Fibromyalgia, Reports Hx Musculoskeletal Deformity, Reports Hx Musculoskeletal Trauma Psychiatric Medical History: Reports: Hx Anxiety, Hx Depression Traumatic Medical History: Reports: Hx Fractures - Facial fractures bilateral toes elbow and left knee Infectious Medical History: Denies: Hx Hepatitis Past Surgical History: Reports: Hx Abdominal Surgery - hernia, Hx Section - 2, Hx Cholecystectomy, Hx Hysterectomy, Hx Orthopedic Surgery - bilateral toes and elbows left knee twice, Hx Tubal Ligation, Other - Ventral hernia and pseudocyst removal. Denies: Hx Appendectomy - Immunizations Immunizations up to date: Yes Hx Diphtheria, Pertussis, Tetanus Vaccination: Yes Review of Systems - Review of Systems Notes: REVIEW OF SYSTEMS: CONSTITUTIONAL : Denies fever, chills, or sweats. Denies recent illness. Denies weight loss, recent hospitalizations. EENT: Denies visual changes, eye pain. Denies oral lesions, difficulty swallowing. CARDIOVASCULAR: Denies palpitations. Denies lower extremity edema. RESPIRATORY: Denies wheezing. GASTROINTESTINAL: Denies abdominal pain or distention. Denies nausea, vomiting, or diarrhea. Denies blood in vomitus, stools, or per rectum. Denies black, tarry stools. Denies constipation. GENITOURINARY: Denies difficulty urinating, painful urination, frequency, blood in urine, or vaginal discharge. MUSCULOSKELETAL: Denies back or neck pain or stiffness. Denies joint pain or swelling. SKIN: Denies rash, lesions or sores. HEMATOLOGIC : Denies easy bruising or bleeding. LYMPHATIC: Denies swollen glands. NEUROLOGICAL: Denies confusion or altered mental status. Denies loss of consciousness. Denies dizziness or lightheadedness. Denies headache. Denies weakness or paralysis. Denies problems difficulty with ambulation, slurred speech. Denies sensory loss, numbness, or tingling. Denies seizures. PSYCHIATRIC: Denies anxiety or stress. Denies depression, suicidal ideation, or homicidal ideation. Denies visual or auditory hallucinations. Physical Exam - Vital signs Vitals: Temp Pulse Resp BP Pulse Ox 98.1 F 85 18 162/87 H 94 09/08/18 13:30 09/08/18 13:30 09/08/18 13:30 09/08/18 13:30 09/08/18 13:30 - Notes Notes: PHYSICAL EXAMINATION: GENERAL: Well-appearing, well-nourished and in no acute distress. HEAD: Atraumatic, normocephalic. EYES: Pupils equal round and reactive to light, extraocular movements intact, conjunctiva are normal. ENT: Nares patent, oropharynx clear without exudates. Moist mucous membranes. NECK: Normal range of motion, supple without lymphadenopathy LUNGS: Breath sounds clear to auscultation bilaterally and equal. No wheezes rales or rhonchi. HEART: Regular rate and rhythm without murmurs ABDOMEN: Soft, nontender, nondistended abdomen. No guarding, no rebound. No masses appreciated. Female : deferred Musculoskeletal: Normal range of motion, no pitting or edema. No cyanosis. NEUROLOGICAL: Cranial nerves grossly intact. Normal speech, normal gait. Normal sensory, motor exams PSYCH: Normal mood, normal affect. SKIN: Warm, Dry, normal turgor, no rashes or lesions noted. Course - Re-evaluation Re-evalutation: Laboratory 09/08/18 09/08/18 09/08/18 14:09 14:09 14:09 WBC 7.7 RBC 5.57 H Hgb 15.6 H Hct 44.6 MCV 80 MCH 28.0 MCHC 34.9 RDW 13.3 Plt Count 231 Seg Neutrophils % 63.1 Lymphocytes % 27.7 Monocytes % 6.6 Eosinophils % 2.0 Basophils % 0.6 Absolute Neutrophils 4.8 Absolute Lymphocytes 2.1 Absolute Monocytes 0.5 Absolute Eosinophils 0.2 Absolute Basophils 0.0 Sodium 136.5 L Potassium 4.3 Chloride 98 Carbon Dioxide 28 Anion Gap 11 BUN 14 Creatinine 0.49 L Est GFR ( Amer) > 60 Est GFR (Non-Af Amer) > 60 Glucose 357 H POC Glucose Calcium 10.6 H Total Bilirubin 0.6 Direct Bilirubin 0.2 Neonat Total Bilirubin Not Reportable Neonat Direct Bilirubin Not Reportable Neonat Indirect Bili Not Reportable AST 18 ALT 27 Alkaline Phosphatase 82 Creatine Kinase 33 Troponin I < 0.012 Total Protein 7.8 Albumin 4.6 Lipase 154.6 Urine Color Urine Appearance Urine pH Ur Specific Stoddard Urine Protein Urine Glucose (UA) Urine Ketones Urine Blood Urine Nitrite Urine Bilirubin Urine Urobilinogen Ur Leukocyte Esterase Urine WBC (Auto) Urine RBC (Auto) Urine Bacteria (Auto) Squamous Epi Cells Auto Urine Mucus (Auto) Urine Ascorbic Acid 09/08/18 09/08/18 14:20 15:34 WBC RBC Hgb Hct MCV MCH MCHC RDW Plt Count Seg Neutrophils % Lymphocytes % Monocytes % Eosinophils % Basophils % Absolute Neutrophils Absolute Lymphocytes Absolute Monocytes Absolute Eosinophils Absolute Basophils Sodium Potassium Chloride Carbon Dioxide Anion Gap BUN Creatinine Est GFR ( Amer) Est GFR (Non-Af Amer) Glucose POC Glucose 324 H Calcium Total Bilirubin Direct Bilirubin Neonat Total Bilirubin Neonat Direct Bilirubin Neonat Indirect Bili AST ALT Alkaline Phosphatase Creatine Kinase Troponin I Total Protein Albumin Lipase Urine Color STRAW Urine Appearance CLEAR Urine pH 6.0 Ur Specific Stoddard 1.029 Urine Protein NEGATIVE Urine Glucose (UA) >=500 H Urine Ketones NEGATIVE Urine Blood NEGATIVE Urine Nitrite NEGATIVE Urine Bilirubin NEGATIVE Urine Urobilinogen NEGATIVE Ur Leukocyte Esterase SMALL H Urine WBC (Auto) 3 Urine RBC (Auto) 2 Urine Bacteria (Auto) TRACE Squamous Epi Cells Auto 1 Urine Mucus (Auto) RARE Urine Ascorbic Acid 20 H Chest X-Ray 09/08/18 14:00 IMPRESSION: NO ACUTE RADIOGRAPHIC FINDING IN THE CHEST. Temp Pulse Resp BP Pulse Ox 98.1 F 85 22 H 164/86 H 94 09/08/18 13:30 09/08/18 13:30 09/08/18 17:01 09/08/18 17:01 09/08/18 17:01 09/09/18 15:51 58-year-old female with hypertension, hyperlipidemia, asthma, type 2 diabetes presents with 1 week of intermittent stabbing chest pain, nasal congestion, sore throat, ear pain, headache. Patient also complaining of intermittent shortness of breath worse with laying flat. She states that she has had significant nasal drainage. CBC is without leukocytosis or anemia. CMP does show hyperglycemia without evidence of DKA. Cardiac enzymes are within normal limits. EKG showed the patient to be in normal sinus rhythm without any ST changes. Patient's exam is consistent with upper respiratory infection. 09/09/18 15:54 HEART Score: History-0 ECG-0 Age-1 Risk Factors-2 Troponin Total:3 If HEART score is = 3 AND both troponin measurements are normal, the 30 day risk of a major adverse cardiac event (all-cause mortality, myocardial infarction or need for coronary revascularization) is < 1% (Sensitivity 100%, NPV 100%). Chest pain in a patient without evidence of cardiac or other serious etiology on workup today. I discussed with patient that, based on their age, risk factors and emergency department testing today, the likelihood that their symptoms are related to a heart attack is very low (estimated risk of heart attack or over the next 30 days of less than 1%). The patient demonstrates decision making capacity and has verbalized an understanding of these risks to me. Based on this, the patient has chosen to follow-up as an outpatient. Usual chest pain return precautions reviewed. The patient states understanding and agreement with this plan. - Vital Signs Vital signs: Temp Pulse Resp BP Pulse Ox 98.1 F 85 22 H 164/86 H 94 09/08/18 13:30 09/08/18 13:30 09/08/18 17:01 09/08/18 17:01 09/08/18 17:01 - Laboratory Result Diagrams: 09/08/18 14:09 09/08/18 14:09 Laboratory results interpreted by me: 09/08/18 09/08/18 09/08/18 14:09 14:09 14:20 RBC 5.57 H Hgb 15.6 H Sodium 136.5 L Creatinine 0.49 L Glucose 357 H POC Glucose Calcium 10.6 H Urine Glucose (UA) >=500 H Ur Leukocyte Esterase SMALL H Urine Ascorbic Acid 20 H 09/08/18 15:34 RBC Hgb Sodium Creatinine Glucose POC Glucose 324 H Calcium Urine Glucose (UA) Ur Leukocyte Esterase Urine Ascorbic Acid - Diagnostic Test Radiology reviewed: Image reviewed, Reports reviewed - EKG Interpretation by Me EKG shows normal: Sinus rhythm Rate: Normal Rhythm: NSR When compared to previous EKG there are: Previous EKG unavailable Discharge - Discharge Clinical Impression: Post-nasal drainage Chest pain Qualifiers: Chest pain type: unspecified Qualified Code(s): R07.9 - Chest pain, unspecified Asthma Qualifiers: Asthma severity: unspecified severity Asthma persistence: intermittent Asthma complication type: unspecified Qualified Code(s): J45.20 - Mild intermittent a sthma, uncomplicated Hypertension Qualifiers: Hypertension type: unspecified Qualified Code(s): I10 - Essential (primary) h ypertension URI (upper respiratory infection) Qualifiers: URI type: unspecified URI Qualified Code(s): J06.9 - Acute upper respiratory infection, unspecified Condition: Good Disposition: HOME, SELF-CARE Instructions: Chest Pain of Unclear Cause ([facility]), Upper Respiratory Illness ([facility]), Viral Syndrome ([facility]) Additional Instructions: You were seen today for chest pain. The exact cause of your pain is unclear. However, based on your cardiac enzyme testing, chest x-ray, and EKG it does not appear that it is from an immediately life-threatening cause at this time. Although your testing here is normal is critical that you follow-up with your primary care physician for continued evaluation of this chest pain and possible stress testing. I recommended you see your physician within the next 24-48 hours to be evaluated for consideration of a stress test. Please return to emergency department immediately if you have worsening of your chest pain, shortness of breath, vomiting, become unable to exert yourself due to pain or difficulty breathing, you pass out, or have any pain that radiates into your arms, jaw, or back. Please also return if you have any additional symptoms that are concerning to you. Recommendations: It is recommended to followup with a primary care doctor within the next 2 days. If you do not have a primary care doctor or you are unable to get an apointment during that time, I left the number for some internal medicine physicians that are affiliated with this [facility]. Dr. Nancy Cherry [address], [place] [address] [phone] Dr Carranza Address: [address] [place] [address] , [place] [address] Prescriptions: Albuterol Sulfate [Proair HFA Inhalation Aerosol 8.5 gm MDI] 2 puff IH Q4H PRN #1 mdi PRN Reason: Fluticasone Propionate [Flonase Nasal Palm 50 Mcg/Palm 16 gm] 2 sprays NASL Q12 #1 inhaler Forms: Elevated Blood Pressure
[2018-09-08] MEDS ORDERED: IPRATROPIUM/ALBUTEROL 0.5-2.5 MG/3 ML AMPUL NEB ONE (15:49)
[2018-09-08] MEDS ORDERED: CETIRIZINE 10 MG TABLET PO ONE (15:49)
[2018-09-08] MEDS ORDERED: KETOROLAC TROMETHAMINE INJ/PF 30 MG/1 ML SDV IV ONE (15:50)
[2018-09-08 17:06] VITALS: BP 164/86
--- NOTE | 2018-09-08 23:58 | EKG REPORT ---
SEVERITY:- NORMAL ECG - SINUS RHYTHM : Confirmed by: Jennifer Burgess 08-Sep-2018 23:57:22
== END 2018-09-08 17:10 | disposition home or self-care (01) ==
LOC: ER 12:55
DX: J06.9 Acute upper respiratory infection, unspecified (principal); J45.20 Mild intermittent asthma, uncomplicated; R07.9 Chest pain, unspecified; I10 Essential (primary) hypertension; E78.00 Pure hypercholesterolemia, unspecified; E11.9 Type 2 diabetes mellitus without complications; Z88.3 Allergy status to other anti-infective agents; Z88.0 Allergy status to penicillin; Z85.41 Personal history of malignant neoplasm of cervix uteri; Z88.6 Allergy status to analgesic agent; Z91.040 Latex allergy status
CPT/HCPCS: 93005; 94640; 99284; 96374; 36415; 82962; 82550; 83690; 85025; 80053; 81001; 84484; 71046; 93010; J1885; J7620

== ENCOUNTER 2018-09-11 20:41 | Emergency (ER) | payer SELFPAY ==
[2018-09-11 21:09] VITALS: BP 184/88
== END 2018-09-11 22:08 | disposition left against medical advice (07) ==
LOC: ER 20:41
DX: Z53.21 Procedure and treatment not carried out due to patient leaving prior to being seen by health care provider (principal)

== ENCOUNTER 2018-09-13 10:07 | Emergency (ER) | payer SELFPAY ==
[2018-09-13] MEDS ORDERED: LIDOCAINE 5% (700 MG) TRANSDERMAL ADH..PATCH TP ONE (10:34)
[2018-09-13] MEDS ORDERED: DEXAMETHASONE SOD PHOS INJ 10 MG/1 ML VIAL IM ONE (10:34)
--- NOTE | 2018-09-13 10:38 | ER Document Report ---
HPI - HPI Time Seen by Provider: 09/13/18 10:14 Pain Level: 5 Context: Patient is a 58-year-old female who presents emergency department with a chief Complaint of back pain. She states that her pain in in her lower back, primarily on the left side. Her pain started a few days ago and she was here in the emergency department to be seen, but left without being seen. She states that an achy pain. She denies any loss of bladder or bowel function, weakness, or history of IV drug abuse. Her past medical history includes hypertension and diabetes. Her blood pressure here in the emergency department is 169/83. She does not have a primary care provider at this time and she has not had her blood pressure medications in the past 3-4 days. He still does have her Novolin 70/30. - CONSTITUTIONAL Constitutional: DENIES: Fever, Chills - EENT EENT: DENIES: Sore Throat - NEURO Neurology: DENIES: Headache, Weakness - RESPIRATORY Respiratory: DENIES: Trouble Breathing, Coughing - GASTROINTESTINAL Gastrointestinal: DENIES: Abdominal Pain, Nausea, Patient vomiting, Diarrhea - URINARY Urinary: DENIES: Dysuria - REPRODUCTIVE Reproductive: DENIES: : - MUSCULOSKELETAL Musculoskeletal: REPORTS: Extremity pain, Back Pain - DERM Skin Color: Normal Skin Problems: None Past Medical History - Social History Smoking Status: Former Smoker Family History: Arthritis, CVA, DM, Hyperlipidemia, Hypertension, Malignancy, Thyroid Disfunction Patient has suicidal ideation: No Patient has homicidal ideation: No - Past Medical History Cardiac Medical History: Reports: Hx Hypercholesterolemia, Hx Hypertension Pulmonary Medical History: Reports: Hx Asthma Neurological Medical History: Reports: Hx Cerebrovascular Accident, Hx Migraine Endocrine Medical History: Reports: Hx Diabetes Mellitus Type 1, Hx Diabetes Mellitus Type 2. Denies: Hx Hyperthyroidism, Hx Hypothyroidism Renal/ Medical History: Denies: Hx Peritoneal Dialysis Malignancy Medical History: Reports: Hx Cervical Cancer GI Medical History: Reports: Hx Gastroesophageal Reflux Disease. Denies: Hx Cirrhosis, Hx Hepatitis Musculoskeletal Medical History: Reports Hx Arthritis, Reports Hx Fibromyalgia, Reports Hx Musculoskeletal Deformity, Reports Hx Musculoskeletal Trauma Psychiatric Medical History: Reports: Hx Anxiety, Hx Depression Traumatic Medical History: Reports: Hx Fractures - Facial fractures bilateral toes elbow and left knee Infectious Medical History: Denies: Hx Hepatitis Past Surgical History: Reports: Hx Abdominal Surgery - hernia, Hx Section - 2, Hx Cholecystectomy, Hx Hysterectomy, Hx Orthopedic Surgery - bilateral toes and elbows left knee twice, Hx Tubal Ligation, Other - Ventral hernia and pseudocyst removal. Denies: Hx Appendectomy - Immunizations Immunizations up to date: Yes Hx Diphtheria, Pertussis, Tetanus Vaccination: Yes Vertical Provider Document - CONSTITUTIONAL Agree With Documented VS: Yes Exam Limitations: No Limitations General Appearance: No Apparent Distress - INFECTION CONTROL TRAVEL OUTSIDE OF THE [place] IN LAST 30 DAYS: No - HEENT HEENT: Atraumatic - NECK Neck: Normal Inspection - RESPIRATORY Respiratory: Breath Sounds Normal, No Respiratory Distress - CARDIOVASCULAR Cardiovascular: Regular Rate, Regular Rhythm Pulses: Normal: Radial - BACK Back: Normal Inspection - Tenderness to mid lower back, down to left gluteal muscles - MUSCULOSKELETAL/EXTREMETIES Musculoskeletal/Extremeties: FROM, Tender - left gluteal, No Edema. negative: Eccymosis - NEURO Level of Consciousness: Awake, Alert, Appropriate Motor/Sensory: No Motor Deficit, No Sensory Deficit, No Pronator Drift Deep Tendon Reflexes: 2+ - DERM Integumentary: Warm, Dry Course - Re-evaluation Re-evalutation: 09/13/18 10:38 Differential diagnosis for back pain includes muscle spasm, muscle strain, slipped disc cauda equina syndrome, vertebral fracture, vertebral tumor, epidural abscess, pyelonephritis, or AAA. Based on history and exam, the most likely etiology of the patient's back pain is adequate nerve pain. Emergent MRI is not indicated at this time because the patient does not have new weakness, or cauda equina syndrome. Patient does not have bladder or bowel dysfunction. Patient does not have history of IV drug use, therefore, I do not suspect an epidural abscess. Patient does not have recent weight loss or night sweats, and does not have a known history of cancer. She received a shot of Decadron here in the emergency department. She cannot receive Toradol because she used ibuprofen this morning around 7:00 in the morning. Verbal discharge instructions were given to the patient. They verbalized understanding. They are stable for discharge. - Vital Signs Vital signs: Temp Pulse Resp BP Pulse Ox 97.7 F 83 18 169/83 H 96 09/13/18 10:13 09/13/18 10:13 09/13/18 10:13 09/13/18 10:13 09/13/18 10:13 Discharge - Discharge Clinical Impression: Left sciatic nerve pain, Essential hypertension Condition: Stable Disposition: HOME, SELF-CARE Instructions: Ice Packs ([facility]), Low Back Pain ([facility]), Warm Packs ([facility]) Additional Instructions: You were seen today in the emergency department for back pain. Your back pain is most consistent with sciatic nerve pain. You may take ibuprofen 600 mg and acetaminophen 1000 mg every 6 hours as needed for the pain. You may also buy [id number] Aspercreme with lidocaine and apply to the area per box instructions. Have been given lidocaine patches. You may use this if you do not want to use Aspercreme. If you develop a fever greater than 100.4 F, lose bowel or bladder function, are unable to walk, or have any symptoms that are worrisome to you, please return to the emergency department. Please follow-up with the [facility] or [facility] since you do not have insurance. Prescriptions: Lidocaine [Lidoderm 5% (700 mg) Transdermal Patch] 1 patch TP DAILY PRN #7 adh..patch PRN Reason: Losartan/Hydrochlorothiazide [Losartan-Hctz 100-25 mg Tab] 1 each PO DAILY #30 tablet Referrals: [facility] [Provider Group] - Follow up as needed [facility] [Provider Group] - Follow up as needed
[2018-09-13 11:07] VITALS: BP 165/89
== END 2018-09-13 11:06 | disposition home or self-care (01) ==
LOC: ER 10:07
DX: M54.42 Lumbago with sciatica, left side (principal); I10 Essential (primary) hypertension; Z79.899 Other long term (current) drug therapy; T50.906A Underdosing of unspecified drugs, medicaments and biological substances, initial encounter; Z91.128 Patient's intentional underdosing of medication regimen for other reason; Z91.14 Patient's other noncompliance with medication regimen; E11.9 Type 2 diabetes mellitus without complications; Z87.891 Personal history of nicotine dependence
CPT/HCPCS: 99283; 96372; J1100

== ENCOUNTER 2018-09-14 03:17 | Emergency (ER) | payer OTHER ==
[2018-09-14 03:44] LABS: ABSOLUTE LYMPHOCYTES (AUTO) 1.5 10^3/uL (0.5-4.7); ABSOLUTE MONOCYTES (AUTO) 0.4 10^3/uL (0.1-1.4); ABSOLUTE NEUT (AUTO) 10.7 10^3/uL (1.7-8.2); BASOPHILS % (AUTO) 0.4 % (0-2); HEMATOCRIT 43.3 % (36.0-47.0); LYMPHOCYTES % (AUTO) 11.8 % (13-45); MEAN CORPUSCULAR HEMOGLOBIN 27.6 pg (27.0-33.4); MEAN CORPUSCULAR HGB CONC 34.6 g/dL (32.0-36.0); MEAN CORPUSCULAR VOLUME 80 fl (80-97); MONOCYTES % (AUTO) 3.5 % (3-13); PLATELET COUNT 226 10^3/uL (150-450); RED BLOOD COUNT 5.43 10^6/uL (3.72-5.28); RED CELL DISTRIBUTION WIDTH 13.2 % (11.5-14.0); SEGMENTED NEUTROPHILS % (AUTO) 84.3 % (42-78); TOTAL CELLS COUNTED % (AUTO) 100 %; WHITE BLOOD COUNT 12.8 10^3/uL (4.0-10.5)
--- NOTE | 2018-09-14 03:44 | ER Document Report ---
ED Cardiac - General Chief Complaint: Chest Pain Stated Complaint: CHEST PAIN Time Seen by Provider: 09/14/18 03:21 Notes: Patient is a 58 year old female that comes to the emergency department for chief complaint of chest pain in her mid to left lower chest, symptoms started tonight, she states she feels radiation of pain up towards her shoulder and towards her back occasionally. She reports a vague shortness of breath and feeling like her heart is "palpitating". She denies nausea or vomiting, fever or chills, injury. Comes by EMS, given 324 mg of aspirin. She was also given nitroglycerin spray and states that shortly afterwards she started having a mild headache. Past medical history includes insulin-dependent diabetes, hyperten tod, hyperlipidemia, GERD, anxiety/depression, fibromyalgia, pancreatitis with pseudocyst removal, hysterectomy, cholecystectomy, hernia repair. TRAVEL OUTSIDE OF THE [place] IN LAST 30 DAYS: No - Related Data Allergies/Adverse Reactions: Penicillins Allergy (Unknown, Verified 09/08/18 13:17) cephalexin monohydrate [From Keflex] Allergy (Verified 09/08/18 13:17) ciprofloxacin [From Cipro] Allergy (Verified 09/08/18 13:17) codeine Allergy (Verified 09/08/18 13:17) Iodinated Contrast- Oral and IV Dye [IV Dye, Iodine Containing] Allergy (Verified 09/08/18 13:17) latex [Latex] Allergy (Verified 09/08/18 13:17) metformin Allergy (Verified 09/08/18 13:17) nitrofurantoin macrocrystalline [From Macrodantin] Allergy (Verified 09/08/18 13:17) penicillin G Allergy (Verified 09/08/18 13:17) Sulfa (Sulfonamide Antibiotics) Allergy (Verified 09/08/18 13:17) tetracycline [Tetracycline] Allergy (Verified 09/08/18 13:17) nitroglycerin [From Nitrostat] Adverse Reaction (Verified 09/08/18 13:17) Past Medical History - General Information source: Patient - Social History Smoking Status: Former Smoker Frequency of alcohol use: None Drug Abuse: None Lives with: Alone Family History: Arthritis, CVA, DM, Hyperlipidemia, Hypertension, Malignancy, Thyroid Disfunction - Past Medical History Cardiac Medical History: Reports: Hx Hypercholesterolemia, Hx Hypertension Pulmonary Medical History: Reports: Hx Asthma Neurological Medical History: Reports: Hx Cerebrovascular Accident, Hx Migraine Endocrine Medical History: Reports: Hx Diabetes Mellitus Type 2. Denies: Hx Hyperthyroidism, Hx Hypothyroidism Renal/ Medical History: Denies: Hx Peritoneal Dialysis GI Medical History: Reports: Hx Gastroesophageal Reflux Disease. Denies: Hx Cirrhosis, Hx Hepatitis Musculoskeletal Medical History: Reports Hx Arthritis, Reports Hx Fibromyalgia, Reports Hx Musculoskeletal Deformity, Reports Hx Musculoskeletal Trauma Psychiatric Medical History: Reports: Hx Anxiety, Hx Depression Traumatic Medical History: Reports: Hx Fractures - Facial fractures bilateral toes elbow and left knee Infectious Medical History: Denies: Hx Hepatitis Past Surgical History: Reports: Hx Abdominal Surgery - hernia, Hx Section - 2, Hx Cholecystectomy, Hx Hysterectomy, Hx Orthopedic Surgery - bilateral toes and elbows left knee twice, Hx Tubal Ligation, Other - Ventral hernia and pseudocyst removal. Denies: Hx Appendectomy - Immunizations Immunizations up to date: Yes Hx Diphtheria, Pertussis, Tetanus Vaccination: Yes Review of Systems - Review of Systems Constitutional: No symptoms reported EENT: No symptoms reported Cardiovascular: See HPI Respiratory: See HPI Gastrointestinal: No symptoms reported Genitourinary: No symptoms reported Female Genitourinary: No symptoms reported Musculoskeletal: No symptoms reported Skin: No symptoms reported Hematologic/Lymphatic: No symptoms reported Neurological/Psychological: No symptoms reported Physical Exam - Vital signs Vitals: Pulse Ox 95 09/14/18 03:23 - Notes Notes: GENERAL: Alert, interacts well. No acute distress. HEAD: Normocephalic, atraumatic. EYES: Pupils equal, round, and reactive to light. Extraocular movements intact. ENT: Oral mucosa moist, tongue midline. Oropharynx unremarkable. Airway patent. Nares patent, no nasal septal hematoma, TM's intact. NECK: Full range of motion. Supple. Trachea midline. LUNGS: Clear to auscultation bilaterally, no wheezes, rales, or rhonchi. No respiratory distress. There is mild tenderness over the lower sternum, no cre pitus, erythema, or swelling. Unremarkable otherwise. HEART: Mild tachycardia, normal rhythm, no murmur ABDOMEN: Soft, non-tender. Non-distended. Bowel sounds present in all 4 quadrants. GENITOURINARY: Deferred EXTREMITIES: Moves all 4 extremities spontaneously. No edema, normal radial and dorsalis pedis pulses bilaterally. No cyanosis. BACK: no cervical, thoracic, lumbar midline tenderness. No saddle anesthesia, normal distal neurovascular exam. NEUROLOGICAL: Alert and oriented x3. Normal speech. [cranial nerves II through XII grossly intact]. PSYCH: Normal affect, normal mood. SKIN: Warm, dry, normal turgor. No rashes or lesions noted. Course - Re-evaluation Re-evalutation: EKG shows sinus tachycardia at a rate of 105, no T wave inversions or ST segment changes in consecutive leads. Slayden is normal. QTC is 461. Chest x-ray with no acute findings. Patient's heart score is 3 (age gives 1 point, risk factors give 2 points). Initial troponin is negative. CBC shows mild leukocytosis at 12.8 and glucose is elevated at 433, however I suspect this is because patient just received a dose of steroids for back pain. Bicarb is normal, anion gap is normal. Given insulin. Patient reporting some shortness of breath along with the chest pain, she also has some tachycardia. Suspect this could be from dehydration secondary to hypoglycemia, however discussed with patient, decision was made to perform CTA to rule out pulmonary embolism because of chest pain, shortness of breath, tachycardia. CT negative, second troponin negative. Patient has now completed IV fluids which were running slowly but now after IV fluids and insulin her heart rate is now in the 80s. Patient states that now she can feel her heart rate is not "palpitating fast" and her discomfort is gone. Suspect patient had hyperglycemia, secondary to dehydration, and tachycardia resulting in her discomfort based on her description. Very low suspicion of ACS based on this. She also has some mild chest wall tenderness although this is also not as bad on reevaluation, could be also secondary to some dehydration. Discussed recommendations of avoiding carbohydrates during the next 2 days while we expect the steroid to be circulating in her system, use of her insulin, primary care follow-up, and return precautions. Patient states satisfaction and agreement, states she is ready to go home. Stable at time of discharge. - Vital Signs Vital signs: Temp Pulse Resp BP Pulse Ox 20 144/85 H 97 09/14/18 07:01 09/14/18 07:00 09/14/18 07:01 - Laboratory Result Diagrams: 09/14/18 03:30 09/14/18 03:30 Laboratory results interpreted by me: 09/14/18 09/14/18 09/14/18 03:30 03:30 07:29 WBC 12.8 H RBC 5.43 H Seg Neutrophils % 84.3 H Lymphocytes % 11.8 L Absolute Neutrophils 10.7 H Sodium 133.4 L Chloride 96 L Creatinine 0.50 L Glucose 439 H* POC Glucose 317 H Discharge - Discharge Clinical Impression: Tachycardia, Dehydration, Chest discomfort, Hyperglycemia Condition: Stable Disposition: HOME, SELF-CARE Additional Instructions: Your workup indicated dehydration and high blood sugars, most likely this is the cause of your symptoms, most likely this is because of the steroid injection he received. Use your insulin, avoid carbohydrates, drink plenty of fluids and rest. Follow-up with primary care for additional management. Return if you worsen including vomiting, passing out, severe pain, difficulty breathing, or any other concerning symptoms. Forms: Return to Work
[2018-09-14 03:52] LABS: ALANINE AMINOTRANSFERASE 29 U/L (9-52); ALBUMIN 4.6 g/dL (3.5-5.0); ALKALINE PHOSPHATASE 85 U/L (38-126); ANION GAP 13 (5-19); ASPARTATE AMINO TRANSFERASE 14 U/L (14-36); BILIRUBIN,DIRECT 0.3 mg/dL (0.0-0.4); BILIRUBIN,TOTAL 0.7 mg/dL (0.2-1.3); BLOOD UREA NITROGEN 16 mg/dL (7-20); CALCIUM 10.1 mg/dL (8.4-10.2); CARBON DIOXIDE 24 mmol/L (22-30); CHLORIDE 96 mmol/L (98-107); LIPASE 99.3 U/L (23-300); POTASSIUM 4.3 mmol/L (3.6-5.0); SODIUM 133.4 mmol/L (137-145); TOTAL PROTEIN 7.5 g/dL (6.3-8.2)
--- NOTE | 2018-09-14 04:31 | RADIOLOGY REPORT (SQ) ---
EXAM DESCRIPTION: XR CHEST 1 VIEW COMPLETED DATE/TME: 09/14/2018 03:31 CLINICAL HISTORY: 58 years, Female, chest pain COMPARISON: 09/08/2018 NUMBER OF VIEWS: One TECHNIQUE: AP view of the chest LIMITATIONS: None. FINDINGS: Lungs are clear. The heart is normal in size. There is no pneumothorax or pleural effusion. There is no acute fracture IMPRESSION: No acute cardiopulmonary abnormality copyright 2010 [employer]- All Rights Reserved
[2018-09-14 04:49] LABS: GLUCOSE 439 mg/dL (75-110)
[2018-09-14] MEDS ORDERED: NORMAL SALINE 1000 ML 1,000 ML IV ONE (05:34)
[2018-09-14] MEDS ORDERED: INSULIN REG, HUMAN 100 UNIT/ML 3 ML VIAL (PYX) SUBCUT ONE (05:34)
[2018-09-14] MEDS ORDERED: ONDANSETRON HCL INJ/PF 4 MG/2 ML SDV IV ONE (05:35)
[2018-09-14] MEDS ORDERED: MORPHINE SULFATE 10 MG/ML INJ IV ONE (05:35)
--- NOTE | 2018-09-14 06:59 | EKG REPORT ---
SEVERITY:- BORDERLINE ECG - SINUS TACHYCARDIA BORDERLINE R WAVE PROGRESSION, ANTERIOR LEADS : Confirmed by: Jennifer Burgess 14-Sep-2018 06:59:24
--- NOTE | 2018-09-14 07:11 | RADIOLOGY REPORT (SQ) ---
EXAM DESCRIPTION: CT CHEST ANGIOGRAPHY WITHOUT THEN WITH IV CONTRAST COMPLETED DATE/TME: 09/14/2018 05:34 CLINICAL HISTORY: 58 years Female, tachycardia, chest pain, shortness of breath Comparison: None. Technique: IV contrast. Coronal and sagittal reformat. 3d reconstruction. This exam was performed according to our departmental dose-optimization program, which includes automated exposure control, adjustment of the mA and/or kV according to patient size and/or use of iterative reconstruction technique.[facility]: Dose Right [facility]: CareDose [facility]: Dose Right [facility]: Teradose 4D [facility]: [employer] LIMITATIONS: Quality of pulmonary arteriogram: Suboptimal. Findings: No pulmonary embolus. No right ventricular strain. Atelectasis/scar. Colonic diverticulosis. Atherosclerotic vascular disease. Likely benign renal cyst(s), not definitively characterized. Inferior neck, axillae, mediastinum, lungs, airway, lymphatics, heart, vasculature, upper abdomen, and musculoskeleton appear otherwise unremarkable. Impression: No pulmonary embolus. No acute cardiopulmonary findings. Limitation.
[2018-09-14 07:58] VITALS: BP 138/87
== END 2018-09-14 07:58 | disposition home or self-care (01) ==
LOC: ER 03:17
DX: E11.65 Type 2 diabetes mellitus with hyperglycemia (principal); R00.0 Tachycardia, unspecified; E86.0 Dehydration; R07.9 Chest pain, unspecified; R06.02 Shortness of breath; R51 Headache; Z79.4 Long term (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 of insulin; I10 Essential (primary) hypertension; Z87.891 Personal history of nicotine dependence; J45.909 Unspecified asthma, uncomplicated
CPT/HCPCS: 93005; 99285; 96361; 96374; 96375; 36415; 82962; 83690; 85025; 80053; 84484; 71045; 71275; 93010; J2270; J1815; J2405; J7030

== ENCOUNTER 2018-11-20 11:08 | Emergency (ER) | payer OTHER ==
[2018-11-20] MEDS ORDERED: DIPHENHYDRAMINE HCL 50 MG/ML VIAL IV ONE (11:46)
[2018-11-20] MEDS ORDERED: RINGERS SOLUTION,LACTATED 1,000 ML IV ONE (11:46)
[2018-11-20] MEDS ORDERED: HALOPERIDOL LACTATE INJ 5 MG/1 ML VIAL IV ONE (11:46)
[2018-11-20 11:47] LABS: ABSOLUTE BASOPHILS # (AUTO) 0.1 10^3/uL (0.0-0.2); ABSOLUTE EOSINOPHILS # (AUTO) 0.1 10^3/uL (0.0-0.6); ABSOLUTE LYMPHOCYTES (AUTO) 1.6 10^3/uL (0.5-4.7); ABSOLUTE MONOCYTES (AUTO) 0.5 10^3/uL (0.1-1.4); ABSOLUTE NEUT (AUTO) 4.9 10^3/uL (1.7-8.2); EOSINOPHILS % (AUTO) 1.7 % (0-6); HEMATOCRIT 43.9 % (36.0-47.0); HEMOGLOBIN 15.3 g/dL (12.0-15.5); MEAN CORPUSCULAR HEMOGLOBIN 27.6 pg (27.0-33.4); MEAN CORPUSCULAR HGB CONC 34.9 g/dL (32.0-36.0); MEAN CORPUSCULAR VOLUME 79 fl (80-97); MONOCYTES % (AUTO) 6.4 % (3-13); PLATELET COUNT 227 10^3/uL (150-450); RED BLOOD COUNT 5.54 10^6/uL (3.72-5.28); RED CELL DISTRIBUTION WIDTH 13.9 % (11.5-14.0); SEGMENTED NEUTROPHILS % (AUTO) 67.9 % (42-78); TOTAL CELLS COUNTED % (AUTO) 100 %; WHITE BLOOD COUNT 7.2 10^3/uL (4.0-10.5)
--- NOTE | 2018-11-20 11:49 | ER Document Report ---
ED General - General Chief Complaint: Nausea/Vomiting Stated Complaint: NAUSEA,VOMITING Time Seen by Provider: 11/20/18 11:37 Notes: 58-year-old lady with recurrent pancreatitis presents with nausea vomiting upper abdominal pain similar to past pancreatitis onset last night at 2 AM, constant. No lower abdominal pain chest pain shortness of breath. Zofran from EMS did nothing for her vomiting. No gallbladder. No alcohol. TRAVEL OUTSIDE OF THE [place] IN LAST 30 DAYS: No - Related Data Allergies/Adverse Reactions: Penicillins Allergy (Unknown, Verified 09/08/18 13:17) cephalexin monohydrate [From Keflex] Allergy (Verified 09/08/18 13:17) ciprofloxacin [From Cipro] Allergy (Verified 09/08/18 13:17) codeine Allergy (Verified 09/08/18 13:17) Iodinated Contrast- Oral and IV Dye [IV Dye, Iodine Containing] Allergy (Verified 09/08/18 13:17) latex [Latex] Allergy (Verified 09/08/18 13:17) metformin Allergy (Verified 09/08/18 13:17) nitrofurantoin macrocrystalline [From Macrodantin] Allergy (Verified 09/08/18 13:17) penicillin G Allergy (Verified 09/08/18 13:17) Sulfa (Sulfonamide Antibiotics) Allergy (Verified 09/08/18 13:17) tetracycline [Tetracycline] Allergy (Verified 09/08/18 13:17) nitroglycerin [From Nitrostat] Adverse Reaction (Verified 09/08/18 13:17) Past Medical History - Social History Smoking Status: Never Smoker Family History: Arthritis, CVA, DM, Hyperlipidemia, Hypertension, Malignancy, Thyroid Disfunction - Past Medical History Cardiac Medical History: Reports: Hx Hypercholesterolemia, Hx Hypertension Pulmonary Medical History: Reports: Hx Asthma Neurological Medical History: Reports: Hx Cerebrovascular Accident, Hx Migraine Endocrine Medical History: Reports: Hx Diabetes Mellitus Type 1, Hx Diabetes Mellitus Type 2. Denies: Hx Hyperthyroidism, Hx Hypothyroidism Renal/ Medical History: Denies: Hx Peritoneal Dialysis Malignancy Medical History: Reports: Hx Cervical Cancer GI Medical History: Reports: Hx Gastroesophageal Reflux Disease. Denies: Hx Cirrhosis, Hx Hepatitis Musculoskeletal Medical History: Reports Hx Arthritis, Reports Hx Fibromyalgia, Reports Hx Musculoskeletal Deformity, Reports Hx Musculoskeletal Trauma Psychiatric Medical History: Reports: Hx Anxiety, Hx Depression Traumatic Medical History: Reports: Hx Fractures - Facial fractures bilateral toes elbow and left knee Infectious Medical History: Denies: Hx Hepatitis Past Surgical History: Reports: Hx Abdominal Surgery - hernia, Hx Section - 2, Hx Cholecystectomy, Hx Hysterectomy, Hx Orthopedic Surgery - bilateral toes and elbows left knee twice, Hx Tubal Ligation, Other - Ventral hernia and pseudocyst removal. Denies: Hx Appendectomy - Immunizations Immunizations up to date: Yes Hx Diphtheria, Pertussis, Tetanus Vaccination: Yes Review of Systems - Review of Systems Notes: REVIEW OF SYSTEMS GEN: Denies fever, chills, weight loss ENT: Denies sore throat, nasal discharge, ear pain EYES: Denies blurry vision, eye pain, discharge CV: Denies chest pain, palpitations, edema RESP: Denies cough, shortness of breath, whee GI: See HPI MSK: Denies joint pain/swelling, edema, SKIN: Denies rash, skin lesions LYMPH: Denies swollen glands/lymph nodes NEURO: Denies headache, focal weakness or numbness, dizziness PSYCH: Denies depression, suicidal or homicidal ideation PHYSICAL EXAMINATION General: No acute distress, well-nourished Head: Atraumatic, normocephalic ENT: Mouth normal, oropharynx moist, no exudates or tonsillar enlargement Eyes: Conjunctiva normal, pupils equal, lids normal Neck: No JVD, supple, no guarding CVS: Normal rate, regular rhythm, no murmurs Resp: No resp distress, equal and normal breath sounds bilaterally GI: Vomiting. No tenderness Ext: No deformities, no edema, normal range of motion in upper and lower ext Back: No CVA or midline TTP Skin: No rash, warm Lymphatic: No lymphadeopathy noted Neuro: Awake, alert. Face symmetric. GCS 15. Physical Exam - Vital signs Vitals: Temp 97.8 F 11/20/18 11:10 Course - Re-evaluation Re-evalutation: 11/20/18 11:48 Recurrent nausea vomiting abdominal pain in a patient with known pink otitis. Likely acute flare of chronic pancreatitis. No marijuana use no alcohol use. Does not have a gallbladder so doubt gallstones. Will check labs treat aggressi vely with Haldol and Benadryl and hydrate. 11/20/18 13:14 Labs normal. Feeling better without nausea vomiting and tolerating p.o. after 1 round of medications and fluids. Will prescribe Phenergan suppositories and discharged home. No sufficient localized tenderness or white count to suggest need for imaging at this time. I have discussed with the patient there likely diagnosis, aftercare plan, follow-up plans and my usual and customary return precautions. They verbalized understanding of this. - Vital Signs Vital signs: Temp Pulse Resp BP Pulse Ox 97.8 F 16 184/93 H 94 11/20/18 11:10 11/20/18 11:24 11/20/18 11:24 11/20/18 11:24 - Laboratory Result Diagrams: 11/20/18 11:13 11/20/18 11:13 Laboratory results interpreted by me: 11/20/18 11/20/18 11/20/18 11:13 11:13 11:18 RBC 5.54 H MCV 79 L Creatinine 0.40 L Glucose 246 H POC Glucose 151 H Calcium 8.3 L Discharge - Discharge Clinical Impression: Nausea and vomiting in adult Condition: Good Disposition: HOME, SELF-CARE Instructions: Vomiting ([facility]) Prescriptions: RX: Promethazine HCl 25 mg RC Q8HP PRN #[id number] supp.rect PRN Reason:
[2018-11-20 11:59] LABS: ALANINE AMINOTRANSFERASE 28 U/L (9-52); ALKALINE PHOSPHATASE 68 U/L (38-126); ANION GAP 11 (5-19); ASPARTATE AMINO TRANSFERASE 18 U/L (14-36); BILIRUBIN,DIRECT 0.3 mg/dL (0.0-0.4); BILIRUBIN,TOTAL 0.7 mg/dL (0.2-1.3); BLOOD UREA NITROGEN 11 mg/dL (7-20); CALCIUM 8.3 mg/dL (8.4-10.2); CARBON DIOXIDE 23 mmol/L (22-30); CHLORIDE 105 mmol/L (98-107); GLUCOSE 246 mg/dL (75-110); LIPASE 72.3 U/L (23-300); POTASSIUM 3.6 mmol/L (3.6-5.0); SODIUM 138.8 mmol/L (137-145); TOTAL PROTEIN 6.8 g/dL (6.3-8.2)
[2018-11-20 14:57] LABS: APPEARANCE,URINE CLEAR; BILIRUBIN,URINE NEGATIVE (NEGATIVE); COLOR,URINE YELLOW; GLUCOSE, URINE >=500 mg/dL (NEGATIVE); KETONES,URINE 20 mg/dL (NEGATIVE); LEUKOCYTE ESTERASE,URINE TRACE (NEGATIVE); NITRITE,URINE NEGATIVE (NEGATIVE); PROTEIN,URINE 100 mg/dL (NEGATIVE); URINE SPECIFIC GRAVITY 1.025
[2018-11-20 15:21] VITALS: BP 168/89
--- NOTE | 2018-11-20 19:16 | EKG REPORT ---
SEVERITY:- ABNORMAL ECG - SINUS RHYTHM LEFT VENTRICULAR HYPERTROPHY CONSIDER ANTERIOR INFARCT : Confirmed by: Eileen Blelamy MD 20-Nov-2018 19:15:39
== END 2018-11-20 16:15 | disposition home or self-care (01) ==
LOC: ER 11:08
DX: R11.2 Nausea with vomiting, unspecified (principal); R10.10 Upper abdominal pain, unspecified; E11.9 Type 2 diabetes mellitus without complications; I10 Essential (primary) hypertension; J45.909 Unspecified asthma, uncomplicated; Z87.19 Personal history of other diseases of the digestive system; Z85.41 Personal history of malignant neoplasm of cervix uteri; Z90.710 Acquired absence of both cervix and uterus; Z90.49 Acquired absence of other specified parts of digestive tract; Z88.0 Allergy status to penicillin; Z88.1 Allergy status to other antibiotic agents; Z88.5 Allergy status to narcotic agent; Z91.040 Latex allergy status; Z91.041 Radiographic dye allergy status; Z88.8 Allergy status to other drugs, medicaments and biological substances; Z88.2 Allergy status to sulfonamides
CPT/HCPCS: 93005; 99284; 96361; 96374; 96375; 36415; 82962; 83690; 85025; 80053; 81001; 93010; J1200; J1630; J7120

== ENCOUNTER 2018-11-22 09:48 | Inpatient (IN) | payer OTHER ==
[2018-11-22] MEDS ORDERED: MECLIZINE HCL 25 MG TABLET PO ONE (10:02)
--- NOTE | 2018-11-22 10:05 | ER Document Report ---
ED Medical Screen (RME) - General Chief Complaint: Dizziness Stated Complaint: DIZZINESS Time Seen by Provider: 11/22/18 09:57 TRAVEL OUTSIDE OF THE [place] IN LAST 30 DAYS: No - HPI Notes: 11/22/18 10:03 Patient is a 58-year-old female with a history of hypertension, insulin- dependent diabetes, hyperlipidemia, anxiety/depression who presents complaining of dizziness for the past 3 days that is worse with movements and standing. Patient was evaluated for dizziness as well as nausea and vomiting 2 days ago, but her nausea vomiting has since resolved. She is able to eat and drink without difficulty. Patient states that she will have an occasional headache as well. Denies any fever, head injury, neck pain, changes in vision/speech/mentation/hearing, URI, sore throat, chest pain, palpitations, syn cope, cough, shortness of breath, wheeze, dyspnea, abdominal pain, nausea/vomiting/diarrhea, urinary retention, dysuria, hematuria, loss of control of bowel or bladder, numbness/tingling, muscle paralysis/weakness, or rash. I have treated and performed a rapid initial assessment of this patient. A comprehensive ED assessment and evaluation of the patient, analysis of test results and completion of medical decision making process will be conducted by additional ED providers. PHYSICAL EXAMINATION: GENERAL: Well-appearing, well-nourished and in no acute distress. A&Ox4. Answers questions appropriately. LUNGS: Breath sounds clear to auscultation bilaterally and equal. No wheezes rales or rhonchi. HEART: Regular rate and rhythm without murmurs, rubs, gallops. NEUROLOGICAL: Normal speech, normal gait. Cranial is grossly intact. PSYCH: Normal mood, normal affect. - Related Data Allergies/Adverse Reactions: Penicillins Allergy (Unknown, Verified 11/22/18 09:49) cephalexin monohydrate [From Keflex] Allergy (Verified 11/22/18 09:49) ciprofloxacin [From Cipro] Allergy (Verified 11/22/18 09:49) codeine Allergy (Verified 11/22/18 09:49) Iodinated Contrast- Oral and IV Dye [IV Dye, Iodine Containing] Allergy (Verified 11/22/18 09:49) latex [Latex] Allergy (Verified 11/22/18 09:49) metformin Allergy (Verified 11/22/18 09:49) nitrofurantoin macrocrystalline [From Macrodantin] Allergy (Verified 11/22/18 09:49) penicillin G Allergy (Verified 11/22/18 09:49) Sulfa (Sulfonamide Antibiotics) Allergy (Verified 11/22/18 09:49) tetracycline [Tetracycline] Allergy (Verified 11/22/18 09:49) nitroglycerin [From Nitrostat] Adverse Reaction (Verified 11/22/18 09:49) Past Medical History - Social History Chew tobacco use (# tins/day): No Frequency of alcohol use: None Drug Abuse: None Family history: Reviewed & Not Pertinent - Past Medical History Cardiac Medical History: Reports: Hx Hypercholesterolemia, Hx Hypertension Pulmonary Medical History: Reports: Hx Asthma Neurological Medical History: Reports: Hx Cerebrovascular Accident, Hx Migraine Endocrine Medical History: Reports: Hx Diabetes Mellitus Type 1, Hx Diabetes Mellitus Type 2. Denies: Hx Hyperthyroidism, Hx Hypothyroidism Renal/ Medical History: Denies: Hx Peritoneal Dialysis Malignancy Medical History: Reports: Hx Cervical Cancer GI Medical History: Reports: Hx Gastroesophageal Reflux Disease. Denies: Hx Cirrhosis, Hx Hepatitis Musculoskeltal Medical History: Reports Hx Arthritis, Reports Hx Fibromyalgia, Reports Hx Musculoskeletal Deformity, Reports Hx Musculoskeletal Trauma Psychiatric Medical History: Reports: Hx Anxiety, Hx Depression Traumatic Medical History: Reports: Hx Fractures - Facial fractures bilateral toes elbow and left knee Infectious Medical History: Denies: Hx Hepatitis Past Surgical History: Reports: Hx Abdominal Surgery - hernia, Hx Section - 2, Hx Cholecystectomy, Hx Hysterectomy, Hx Orthopedic Surgery - bilateral toes and elbows left knee twice, Hx Tubal Ligation, Other - Ventral hernia and pseudocyst removal. Denies: Hx Appendectomy - Immunizations Immunizations up to date: Yes Hx Diphtheria, Pertussis, Tetanus Vaccination: Yes Physical Exam - Vital signs Vitals: Temp Pulse Resp BP Pulse Ox 97.7 F 96 18 152/83 H 95 11/22/18 09:53 11/22/18 09:53 11/22/18 09:53 11/22/18 09:53 11/22/18 09:53 Course - Vital Signs Vital signs: Temp Pulse Resp BP Pulse Ox 97.7 F 96 18 152/83 H 95 11/22/18 09:53 11/22/18 09:53 11/22/18 09:53 11/22/18 09:53 11/22/18 09:53
[2018-11-22] MEDS: NORMAL SALINE 1000 ML 1,000 ML IV PRN ×3 (10:23→18:49)
[2018-11-22 10:37] LABS: ABSOLUTE BASOPHILS # (AUTO) 0.1 10^3/uL (0.0-0.2); ABSOLUTE EOSINOPHILS # (AUTO) 0.1 10^3/uL (0.0-0.6); ABSOLUTE MONOCYTES (AUTO) 0.7 10^3/uL (0.1-1.4); ABSOLUTE NEUT (AUTO) 6.6 10^3/uL (1.7-8.2); BASOPHILS % (AUTO) 0.6 % (0-2); EOSINOPHILS % (AUTO) 1.3 % (0-6); HEMATOCRIT 46.6 % (36.0-47.0); LYMPHOCYTES % (AUTO) 21.2 % (13-45); MEAN CORPUSCULAR HEMOGLOBIN 27.5 pg (27.0-33.4); MEAN CORPUSCULAR HGB CONC 34.3 g/dL (32.0-36.0); MEAN CORPUSCULAR VOLUME 80 fl (80-97); MONOCYTES % (AUTO) 7.6 % (3-13); PLATELET COUNT 253 10^3/uL (150-450); RED BLOOD COUNT 5.81 10^6/uL (3.72-5.28); RED CELL DISTRIBUTION WIDTH 14.1 % (11.5-14.0); SEGMENTED NEUTROPHILS % (AUTO) 69.3 % (42-78); TOTAL CELLS COUNTED % (AUTO) 100 %; WHITE BLOOD COUNT 9.5 10^3/uL (4.0-10.5)
[2018-11-22 10:57] LABS: ALANINE AMINOTRANSFERASE 35 U/L (9-52); ALKALINE PHOSPHATASE 78 U/L (38-126); ANION GAP 9 (5-19); ASPARTATE AMINO TRANSFERASE 32 U/L (14-36); BILIRUBIN,DIRECT 0.4 mg/dL (0.0-0.4); BILIRUBIN,TOTAL 1.1 mg/dL (0.2-1.3); BLOOD UREA NITROGEN 18 mg/dL (7-20); CARBON DIOXIDE 29 mmol/L (22-30); CHLORIDE 101 mmol/L (98-107); GLUCOSE 262 mg/dL (75-110); POTASSIUM 4.2 mmol/L (3.6-5.0); TOTAL PROTEIN 8.7 g/dL (6.3-8.2)
[2018-11-22 11:02] LABS: INTERNATIONAL RATION (INR) 0.92; PROTHROMBIN TIME 12.8 SEC (11.4-15.4)
[2018-11-22 11:03] LABS: PARTIAL THROMBOPLASTIN TIME 29.6 SEC (23.5-35.8)
[2018-11-22 11:40] LABS: APPEARANCE,URINE CLOUDY; BILIRUBIN,URINE NEGATIVE (NEGATIVE); CALCIUM OXALATE CRYSTALS,URINE TOO NUMEROUS TO CNT /HPF; COLOR,URINE YELLOW; GLUCOSE, URINE >=500 mg/dL (NEGATIVE); KETONES,URINE 20 mg/dL (NEGATIVE); LEUKOCYTE ESTERASE,URINE SMALL (NEGATIVE); NITRITE,URINE NEGATIVE (NEGATIVE); PROTEIN,URINE NEGATIVE (NEGATIVE); URINE SPECIFIC GRAVITY 1.025
[2018-11-22] MEDS ORDERED: ONDANSETRON HCL INJ/PF 4 MG/2 ML SDV IV ONE (11:49)
--- NOTE | 2018-11-22 11:58 | RADIOLOGY REPORT (SQ) ---
EXAM DESCRIPTION: CT HEAD WITHOUT COMPLETED DATE/TIME: 11/22/2018 11:48 am REASON FOR STUDY: dizziness, left arm weakness COMPARISON: 2017 TECHNIQUE: Axial images acquired through the brain without intravenous contrast. Images reviewed wi th bone, brain and subdural windows. Additional sagittal and coronal reconstructions were generated. Images stored on PACS. All CT scanners at this facility use dose modulation, iterative reconstruction, and/or weight based d osing when appropriate to reduce radiation dose to as low as reasonably achievable (ALARA). [facility]: Dose Right [facility]: CareDose [facility]: Dose Right [facility]: Teradose 4D [facility]: [employer] RADIATION DOSE: CT Rad equipment meets quality standard of care and radiation dose reduction techniq ues were employed. CTDIvol: 53.2 mGy. DLP: 1017 mGy-cm. mGy. LIMITATIONS: None. FINDINGS: VENTRICLES: Normal size and contour. CEREBRUM: No masses. No hemorrhage. No midline shift. No evidence for acute infarction. Normal gra y/white matter differentiation. No areas of low density in the white matter. CEREBELLUM: No masses. No hemorrhage. No alteration of density. No evidence for acute infarction. EXTRAAXIAL SPACES: No fluid collections. No masses. ORBITS AND GLOBE: No intra- or extraconal masses. Normal contour of globe without masses. CALVARIUM: No fracture. PARANASAL SINUSES: No fluid or mucosal thickening. SOFT TISSUES: No mass or hematoma. OTHER: No other significant finding. IMPRESSION: NORMAL BRAIN CT WITHOUT CONTRAST. EVIDENCE OF ACUTE STROKE: NO. COMMENT: Quality ID # 436: Final reports with documentation of one or more dose reduction techniques (e.g., Automated exposure control, adjustment of the mA and/or kV according to patient size, use of iterative reconstruction technique) TECHNICAL DOCUMENTATION: JOB ID: [id number] [employer]- All Rights Reserved Reading location - IP/workstation name: [email or web address]
--- NOTE | 2018-11-22 12:01 | RADIOLOGY REPORT (SQ) ---
EXAM DESCRIPTION: CTA NECK COMPLETED DATE/TIME: 11/22/2018 11:47 am REASON FOR STUDY: dizziness, left arm weakness (if no bleed) COMPARISON: None. TECHNIQUE: Axial dynamic scanning technique with dynamic contrast enhancement through the extra-commercial crabber nial carotid and vertebral arteries. Multiplanar reconstruction. 3-D MIPS and Volume-rendered imag es acquired at the workstation and saved to PACS. Images are reviewed in soft tissue, bone, lung w indows. All CT scanners at this facility use dose modulation, iterative reconstruction, and/or weight based d osing when appropriate to reduce radiation dose to as low as reasonably achievable (ALARA). [facility]: Dose Right [facility]: CareDose [facility]: Dose Right [facility]: Teradose 4D [facility]: [employer] CONTRAST TYPE AND DOSE: contrast/concentration: Isovue 350.00 mg/ml; Total Contrast Delivered: 70.0 ml; Total Saline Delivered: 75.0 ml RENAL FUNCTION: GFR > 60. LIMITATIONS: None. FINDINGS: AORTIC ARCH: Normal three-vessel origin. Bilateral subclavian arteries are patent. No d issection. RIGHT CAROTIDS: Patent common, internal and external carotid arteries without suggestion of significa nt stenosis or irregular plaque. No dissection. Extremely tortuous. RIGHT VERTEBRAL: Patent. No dissection. LEFT CAROTIDS: Patent common, internal and external carotid arteries without suggestion of significan t stenosis or irregular plaque. No dissection. LEFT VERTEBRAL: Patent. No dissection. OTHER: No other significant finding. OTHER: 3-D reconstructions confirm findings. IMPRESSION: NORMAL CTA OF THE EXTRA-CRANIAL CAROTID AND VERTEBRAL ARTERIES. Extremely tortuous righ t carotid. COMMENT: Quality ID #[id number]: Measurements of distal internal carotid diameter were used as the denomina tor for stenosis measurement. TECHNICAL DOCUMENTATION: JOB ID: [id number] Quality ID # 436: Final reports with documentation of one or more dose reduction techniques (e.g., Au tomated exposure control, adjustment of the mA and/or kV according to patient size, use of iterative reconstruction technique) 2010 [employer]- All Rights Reserved Reading location - IP/workstation name: [email or web address]
--- NOTE | 2018-11-22 12:03 | RADIOLOGY REPORT (SQ) ---
EXAM DESCRIPTION: CTA HEAD COMPLETED DATE/TIME: 11/22/2018 11:47 am REASON FOR STUDY: dizziness, left arm weakness (if no bleed) COMPARISON: None. TECHNIQUE: Post IV contrast scanning, thin section axial imaging through the brain to evaluate the a rterial structures. Source and MIP images are saved and reviewed on PACS. Advanced 3D imaging as volume-rendering, MIPs, SSD performed? yes All CT scanners at this facility use dose modulation, iterative reconstruction, and/or weight based d osing when appropriate to reduce radiation dose to as low as reasonably achievable (ALARA). [facility]: Dose Right [facility]: CareDose [facility]: Dose Right [facility]: Teradose 4D [facility]: CereScan CONTRAST TYPE AND DOSE: 70 Omnipaque 350- low osmolar. RENAL FUNCTION: GFR > 60. LIMITATIONS: None. FINDINGS: [place]: The anterior, middle, posterior cerebral arteries are all patent. No ev idence of aneurysm or focal stenosis. POSTERIOR CIRCULATION: The distal vertebral arteries are patent as is the basilar artery. No aneurysm . BRAIN: No gross enhancing lesions as visualized. The superior cerebral hemispheres are not included in the field of view. BONES: Intact as visualized. SINUSES: No fluid or mucosal thickening. OTHER: No other significant finding. IMPRESSION: NO CTA EVIDENCE OF STENOSIS OR ANEURYSM OF THE [place]. TECHNICAL DOCUMENTATION: JOB ID: [id number] Quality ID # [id number]: Final reports with documentation of one or more dose reduction techniques (e.g., Au tomated exposure control, adjustment of the mA and/or kV according to patient size, use of iterative reconstruction technique) 2010 [employer]- All Rights Reserved Reading location - IP/workstation name: [email or web address]
--- NOTE | 2018-11-22 12:28 | ER Document Report ---
Entered by PRASANNA PATTERSON SCRIBE 11/22/18 1106 Acting as scribe for:REJI CANO DO ED General - General Chief Complaint: Dizziness Stated Complaint: DIZZINESS Time Seen by Provider: 11/22/18 09:57 Primary Care Provider: [facility] [Provider Group] - Follow up as needed Mode of Arrival: Ambulatory Information source: Patient Notes: Patient is a 58-year-old female with a history of hypertension, insulin dependent diabetes, neuropathy, hyperlipidemia, anxiety, depression presents to the emergency department complaining of nausea, vomiting and dizziness. Patient states she developed vomiting and dizziness 3 days ago. She states that she was seen in the emergency department on Friday for the vomiting and dizziness which has since subsided but then her dizziness returned this morning along with nausea. Patient also complains of a headache located globally that was onset last night and occasional left arm heaviness during the night and this morning. Patient describes her dizziness as feeling intoxicated and off balance when standing and with head movement. She denies any abdominal pain, diarrhea, speech changes or new numbness or tingling sensations. Denies any blood thinners or head injury. Patient recently had a Holter monitor in place 2 days ago but states she removed due to it causing a rash. She was also recently given Zithromax and Phenergan for a recent sinus infection. TRAVEL OUTSIDE OF THE [place] IN LAST 30 DAYS: No - Related Data Allergies/Adverse Reactions: Penicillins Allergy (Unknown, Verified 11/22/18 09:49) cephalexin monohydrate [From Keflex] Allergy (Verified 11/22/18 09:49) ciprofloxacin [From Cipro] Allergy (Verified 11/22/18 09:49) codeine Allergy (Verified 11/22/18 09:49) Iodinated Contrast- Oral and IV Dye [IV Dye, Iodine Containing] Allergy (Verified 11/22/18 09:49) latex [Latex] Allergy (Verified 11/22/18 09:49) metformin Allergy (Verified 11/22/18 09:49) nitrofurantoin macrocrystalline [From Macrodantin] Allergy (Verified 11/22/18 09:49) penicillin G Allergy (Verified 11/22/18 09:49) Sulfa (Sulfonamide Antibiotics) Allergy (Verified 11/22/18 09:49) tetracycline [Tetracycline] Allergy (Verified 11/22/18 09:49) nitroglycerin [From Nitrostat] Adverse Reaction (Verified 11/22/18 09:49) Past Medical History - General Information source: Patient - Social History Smoking Status: Unknown if Ever Smoked Chew tobacco use (# tins/day): No Frequency of alcohol use: None Drug Abuse: None Family History: Arthritis, CVA, DM, Hyperlipidemia, Hypertension, Malignancy, Thyroid Disfunction Patient has suicidal ideation: No Patient has homicidal ideation: No - Past Medical History Cardiac Medical History: Reports: Hx Hypercholesterolemia, Hx Hypertension Pulmonary Medical History: Reports: Hx Asthma Neurological Medical History: Reports: Hx Cerebrovascular Accident, Hx Migraine Endocrine Medical History: Reports: Hx Diabetes Mellitus Type 1, Hx Diabetes Mellitus Type 2 Malignancy Medical History: Reports: Hx Cervical Cancer GI Medical History: Reports: Hx Gastroesophageal Reflux Disease Musculoskeletal Medical History: Reports Hx Arthritis, Reports Hx Fibromyalgia, Reports Hx Musculoskeletal Deformity, Reports Hx Musculoskeletal Trauma Psychiatric Medical History: Reports: Hx Anxiety, Hx Depression Traumatic Medical History: Reports: Hx Fractures - Facial fractures bilateral toes elbow and left knee Past Surgical History: Reports: Hx Abdominal Surgery - hernia, Hx Section - 2, Hx Cholecystectomy, Hx Hysterectomy, Hx Orthopedic Surgery - bilateral toes and elbows left knee twice, Hx Tubal Ligation, Other - Ventral hernia and pseudocyst removal - Immunizations Immunizations up to date: Yes Hx Diphtheria, Pertussis, Tetanus Vaccination: Yes Review of Systems - Review of Systems Constitutional: No symptoms reported EENT: See HPI, Vertigo Cardiovascular: See HPI, Dizziness Respiratory: No symptoms reported Gastrointestinal: See HPI, Nausea, Vomiting Genitourinary: No symptoms reported Female Genitourinary: No symptoms reported Musculoskeletal: No symptoms reported Skin: See HPI, Rash Hematologic/Lymphatic: No symptoms reported Neurological/Psychological: See HPI, Weakness -: Yes All other systems reviewed and negative Physical Exam - Vital signs Vitals: Temp Pulse Resp BP Pulse Ox 97.7 F 96 18 152/83 H 95 11/22/18 09:53 11/22/18 09:53 11/22/18 09:53 11/22/18 09:53 11/22/18 09:53 - Notes Notes: GENERAL: Alert, interacts well. Mildly anxious. HEAD: Normocephalic, atraumatic. EYES: Pupils equal, round, and reactive to light. Extraocular movements intact. ENT: Oral mucosa moist, tongue midline. NECK: Full range of motion. Supple. Trachea midline. LUNGS: Clear to auscultation bilaterally, no wheezes, rales, or rhonchi. No respiratory distress. HEART: Regular rate and rhythm. No murmurs, gallops, or rubs. ABDOMEN: Soft, epigastric tenderness to palpation. Non-distended. Bowel sounds present in all 4 quadrants. No guarding, rigidity, or rebound. EXTREMITIES: Moves all 4 extremities spontaneously. No edema, radial and dorsalis pedis pulses 2/4 bilaterally. No cyanosis. NEUROLOGICAL: Alert and oriented x3. Normal speech. Cranial nerves II through XI I grossly intact. Slight tongue deviation to the left. Left arm is slightly weaker than the left. Mild ataxia of the LUE with finger to nose testing. Heel to miguel testing intact bilaterally. Negative Winona-Hallpike testing to the left although there is very mild left lateral gaze nystagmus and she complains of mild increase of symptoms. Negative Yousuf-Hallpike test to the right. Biceps and patellar DTRs 2+ bilaterally. PSYCH: Mildly anxious otherwise normal. SKIN: Warm, dry, normal turgor. No rashes or lesions noted. Course - Re-evaluation Re-evalutation: 11/22/18 12:07 CBC does not reveal any leukocytosis or anemia, platelets normal, coags normal, CMP shows hyperglycemia otherwise unremarkable, urinalysis shows 20 ketones, small leukocyte esterase, many calcium oxalate crystals but no convincing evidence of infection and patient has no symptoms of infection, appears to be more contaminated this will be sent for culture. Patient has an NIH of 3, her presentation is concerning for possible stroke, she is well outside of the timeframe for stroke as her dizziness is been going on since the and her left arm heaviness has been going on since early this morning or late last evening. Discussed with patient why she is not a candidate for thrombolytics. CT scan of the head does not show any bleed, CT angiogram of the head and neck does not show any large vessel occlusion. Patient will be discussed with the hospitalist for admission. 11/22/18 12:20 Awaiting a phone call back from Dr. Guthrie - Vital Signs Vital signs: Temp Pulse Resp BP Pulse Ox 97.7 F 96 18 172/94 H 98 11/22/18 09:53 11/22/18 09:53 11/22/18 11:01 11/22/18 11:01 11/22/18 11:01 - Laboratory Result Diagrams: 11/22/18 10:12 11/22/18 10:12 Laboratory results interpreted by me: 11/22/18 11/22/18 11/22/18 10:12 10:12 11:10 RBC 5.81 H Hgb 16.0 H RDW 14.1 H Glucose 262 H Total Protein 8.7 H Urine Glucose (UA) >=500 H Urine Ketones 20 H Urine Urobilinogen 2.0 H Ur Leukocyte Esterase SMALL H - EKG Interpretation by Me Additional EKG results interpreted by me: 11/22/18 12:08 EKG shows sinus rhythm rate 95, left axis deviation, normal intervals, no ST segment elevations or depressions, there are T wave inversions in lead III and there is LVH by voltage criteria per my interpretation. Discharge - Discharge Clinical Impression: CVA (cerebral vascular accident) Qualifiers: CVA mechanism: unspecified Qualified Code(s): I63.9 - Cerebral infarction, unspecified Condition: Fair Disposition: ADMITTED INPATIENT Admitting Provider: Jerri (Hospitalist) Unit Admitted: IMCU Referrals: [facility] [Provider Group] - Follow up as needed ED NIH Stroke Scale - NIH Stroke Scale When completed:: Protocol *: 1. NIH scale should be completed with appropriate accompanying assessment tools. *: 2. The NIH should reflect what the patient is capable of doing and should not be coached by the clinician. 1a. Level of Consciousness: 0=Alert;keenly responsive -: 1=Drowsy -: 2=Obtunded -: 3=Coma/unresponsive or reflex to noxious stimuli. 1a. Responses: 0 1b. Orientation Questions: a. What month is it? -: b. How old are you? -: 0=Answers both questions correctly. -: 1=Answers one question correctly or patient is intubated or has orotracheal trauma. -: 2=Answers neither question correctly. 1b. Responses: 0 1c. Response to commands: a. Open and close eyes? -: b. Senior Product Consultant and release hand? -: Credit is given despite weakness. Demonstration of task is permitted. Substitute command if hands cannot be used. -: 0=Performs both tasks correctly -: 1=Performs one task correctly -: 2=Performs neither task correctly 1c. Responses: 0 2. Gaze: Establish eye contact and instruct patient to "Follow my finger" -: 0=Normal -: 1=Partial gaze palsy. Gaze is abnormal in one or both eyes, but where forced deviation or total gaze paresis is not present. -: 2=Forced deviation or total gaze paresis. 2. Responses: 0 3. Visual Streeter: Sees fingers in all four quadrants. -: 0=No visual loss. -: 1=Partial hemianopsia. -: 2=Complete hemianopsia. -: 3=Bilateral hemianopsia (including Cortical blindness) 3. Responses: 0 4. Facial Movement: Instruct patient to: -: a. Show me your teeth -: b. Raise your eyebrows -: c. Close your eyes -: d. Smile -: 0=Normal symmetrical movement -: 1=Minor paralysis (flattened nasolabial fold, asymmetry on smiling). -: 2=Partial paralysis (total or near total paralysis of lower face). -: 3=Complete paralysis of upper and lower face 4. Responses: 0 5. Motor functions (left arm): Alternate sides and extend each arm with palms down (90 degrees if sitting or 45 degrees for supine). -: 0=No drift;limb holds for full 10 seconds. -: 1=Drift; limb holds but drifts down before full 10 seconds, but does not hit bed. -: 2=Some effort against gravity; limb cannot get to or maintain position. -: 3=No effort against gravity; limb falls. -: 4=No movement. -: UN=Amputation, joint fusion, explain in comments. 5. Responses (left arm): 0 5. Motor Functions (right arm): Alternate sides and extend each arm with palms down (90 degrees if sitting or 45 degrees for supine). -: 0=No drift;limb holds for full 10 seconds. -: 1=Drift; limb holds but drifts down before full 10 seconds, but does not hit bed. -: 2=Some effort against gravity; limb cannot get to or maintain position. -: 3=No effort against gravity; limb falls. -: 4=No movement. -: UN=Amputation, joint fusion, explain in comments. 5. Responses (right arm): 0 6. Motor Functions (left leg): With patient lying supine, alternate sides and extend each leg (30 degrees always while supine). -: 0=No drift, leg holds position for full 5 seconds -: 1=Drift; leg falls before full 5 seconds but does not hit bed. -: 2=Some effort against gravity, leg falls to bed but some effort against gravity. -: 3=No effort against gravity, leg falls to bed immediately. -: 4=No movement. -: UN=Amputation, joint fusion; explain in comments. 6. Responses (left leg): 0 6. Motor Functions (right leg): With patient lying supine, alternate sides and extend each leg (30 degrees always while supine). -: 0=No drift, leg holds position for full 5 seconds -: 1=Drift; leg falls before full 5 seconds but does not hit bed. -: 2=Some effort against gravity, leg falls to bed but some effort against gravity. -: 3=No effort against gravity, leg falls to bed immediately. -: 4=No movement. -: UN=Amputation, joint fusion; explain in comments. 6. Responses (right leg): 0 7. Limb Ataxia: With eyes open instruct patient to: -: a. "Touch your finger to your nose". -: b. "Touch your heel to your miguel" -: 0=Absent -: 1=Present in one limb. -: 2=Present in two limbs. -: UN=Amputation or joint fusion; explain in comments. 7. Responses: 1 7. If ataxia present choose as appropriate: Left arm 8. Sensory: Test sensation using pinprick or noxious stimuli. Test as many body parts as possible. -: 0=Normal;no sensory loss -: 1=Mile to moderate sensory loss (patient feels pin prick but is less sharp on affected side). -: 2=Severe or total sensory loss. 8. Responses: 0 9. Best Language: Instruct patient to: -: a. "Describe what you see in this picture." -: b. "Name the items in this picture." -: c. "Read these sentences." -: 0=No aphasia, normal -: 1=Mild to moderate aphasia. -: 2=Severe aphasia -: 3=Mute, global aphasia, no usable speech or auditory comprehension. 9. Responses: 0 10. Articulation, Dysarthia: Instruct patient to: -: "Read these words" or "Repeat these words" -: 0=Normal -: 1=Mild to moderate; patient may slur some words but can be understood without difficulty. -: 2=Severe; patients speech so slurred as to be unintelligible in the absence of dysphasia. -: UN=Intubated or other physical barrier, explain in comments. 10. Responses: 1 11. Extinction or inattention: 0=No abnormality -: 1= Visual, tactile, auditory, spatial, or personal inattention or extinction to bilateral simulation in one or the sensory modalities. -: 2=Profound an-inattention or an-inattention to more than one modality; does not recognize own hand. 11. Responses: 0 Total Score: 2 ED Alteplase Inc/Exc Criteria - Date/Time patient last known well: Date/Time: 11/20/18 12:00 pm - Date/Time patient arrived in ED: _: 11/22/18 9:48 a.m. - Inclusion Criteria: 1: Patient presented to ED within 3 hours of acute ischemic stroke symptom onset? -: No 2: Did baseline CT exclude intracranial hemorrhage and/or other risk factors? -: No 3: Is the age of the patient 18 years of age or greater? -: No : If any of the above questions are answered "NO" then stop, patient is not a candidate for Alteplase, : If all of the above questions are answered "YES" then continue with Exclusion Criteria. - Exclusion Criteria: 1: Is there evidence of intracranial hemorrhage on baseline CT? -: No 2: Is there suspicion of subarachnoid hemorrhage (even if CT negative)? -: No 3: Is there a history of serious head trauma, recent previous stroke or NH within 3 months? -: No 4: Does the patient have a clinical presentation consistent with NH or post-NH pericarditis? 5: Is there history of intracranial hemorrhage? 6: On repeated measurement is Systolic BP greater than 185mmHg or Diastolic BP g reater that 110 mmHg and is aggressive treatment needed to reduce blood pressure to these limits (e.g. constant infusion of an anti-hypertensive)? 7: Did the patient awake with stroke symptoms? 8: Has the patient had a lumbar puncture or an arterial puncture at a non- compressile site within 7 days? 9: With in the last 14 days did the patient have surgery or major trauma? 10: Is the patient or less than 2 weeks? 11: Was there any active bleeding or acute trauma? 12: Does the patient have intracranial neoplasm, arteriovenous malformation or aneurysm? 13: Does the patient have abnormal glucose (less than 50 or greater than 400mg/dl)? Record glucose in Comment. 14: Patient has rapidly improving symptoms at the time Alteplase is to be Administered. 15: Does the patient have any risks for bleeding, including but not limited to: a.: Current use of Coumadin with PT greater than 15 seconds or INR greater than 1.7. b.: Current use of Pradaxa (Dabigatran). c.: Heparin administereed within the past 48 hours and PTT elevated. d.: Platelet count less than 100,000/mm. e.: Major surgery or serious trauma within 14 days. f.: Gastrointestinal or gynecological urinary bleeding within 14 days. g.: Myocardial Infarction (NH) within 3 months. : If the answer to any of the above questions is "YES" then stop, the patient is not a candidate for Alteplase. : If the answer to all of the above questions is "NO" then the patient may be eligible for the Administration of Alteplase. : If the patient is noted to have seizure activity at onset of Stroke symptoms; Consult Neurologist for further evaluation. - The patient is: -: Included and is eligible to receive Alteplase. *Initiate bed placement at higher level of care* --: No Reviewed risks & benefits of thrombolytic therapy: I have reviewed the risks and benefits of thrombolytic therapy with the patient and/or his/her family. -: Excluded and not eligible to receive Alteplase for the above exclusions. --: Yes - out of timeframe -: Excluded and not eligible to receive Alteplase for other reasons (specify in comments): - Diagnosis of TIA: -: Patient presented with transient symptoms that are now resolved and no other neurologic findings are currently present. List symptoms in comments. -: Patient is NOT a candidate for tPA. -: Yes -: ____(put name in comment) has been consulted for admission and continued evaluation of risk factor assessment. Comment: Jerri I personally performed the services described in the documentation, reviewed and edited the documentation which was dictated to the scribe in my presence, and it accurately records my words and actions.
[2018-11-22] MEDS ORDERED: ACETAMINOPHEN 325 MG TABLET PO PRN (13:17)
[2018-11-22] MEDS ORDERED: IPRATROPIUM/ALBUTEROL 0.5-2.5 MG/3 ML AMPUL NEB PRN (13:17)
[2018-11-22] MEDS ORDERED: PROMETHAZINE HCL INJ 25 MG/1 ML VIAL IV PRN (13:17)
[2018-11-22] MEDS ORDERED: GLUCAGON,HUMAN RECOMB 1 MG INJ IM PRN (13:26)
[2018-11-22] MEDS ORDERED: DEXTROSE 50%-WATER 25 GM/50 ML DISP.SYRIN IV PRN ×2 (13:26)
[2018-11-22] MEDS ORDERED: DEXTROSE 40% GEL 15 GM TUBE PO PRN ×2 (13:26)
[2018-11-22] MEDS ORDERED: HYDRALAZINE HCL INJ/PF 20 MG/1 ML SDV IV PRN (13:29)
[2018-11-22] MEDS ORDERED: ASPIRIN 325 MG TABLET, ENT COATED PO ONE (13:30)
[2018-11-22] MEDS ORDERED: BUSPIRONE HCL 10 MG TABLET PO ONE (13:30)
--- NOTE | 2018-11-22 13:55 | PDOC H&P ---
History of Present Illness Admission Date/PCP: 11/22/18 12:33 GINETTE MOJICA MD History of Present Illness: ORLY OSEI is a 58 year old female past medical history of left MCA stroke, hypertension, diabetes, diabetic neuropathy, hyperlipidemia, anxiety, insomnia, depression, presenting to ED complaining of loss of balance and left- sided numbness. 3 days ago patient visited ED complaining of vomiting and dizziness. And was sent home with some antiemetics. Nausea and vomiting has resolved since then. Today in the morning she felt nauseous again with global headache which started last night with occasional left arm heaviness since then. Patient is stating that she is fine at rest but when she tries to walk she feels like she is going to fall forward. Denies any falls. Denies any lightheadedness or vertigo. Patient had a Holter monitor placed 2 days ago which she removed stating that it was causing a rash. She was also started on Zithromax and Phenergan for recent sinus infection. In ED CT head and CTA head were negative for any acute stroke. Hospitalist was consulted for admission. On physical examination there was nystagmus on left lateral gaze which d iminishes after 3 beats. [place]-Hallpike maneuver negative. Motor examination is WNL, DTRs 2+ bilaterally, decreased sensation on left lower and upper extremity. There is no pronator drift, however patient is unsteady gait. Past Medical History Cardiac Medical History: Reports: Hyperlipidema, Hypertension Pulmonary Medical History: Reports: Asthma Neurological Medical History: Reports: Migraine Endocrine Medical History: Reports: Diabetes Mellitus Type 1, Diabetes Mellitus Type 2 Denies: Hyperthyroidism, Hypothyroidism Malignancy Medical History: Reports: Cervical Cancer GI Medical History: Reports: Gastroesophageal Reflux Disease Denies: Cirrhosis, Hepatitis Musculoskeltal Medical History: Reports: Arthritis, Fibromyalgia Psychiatric Medical History: Reports: Depression Past Surgical History Past Surgical History: Reports: Section - 2, Cholecystectomy, Hysterectomy, Orthopedic Surgery - bilateral toes and elbows left knee twice, Tubal Ligation, Other - Ventral hernia and pseudocyst removal Denies: Appendectomy Social History Smoking Status: Unknown if Ever Smoked Frequency of Alcohol Use: None Hx Recreational Drug Use: No Drugs: None Hx Prescription Drug Abuse: No Family History Family History: Arthritis, CVA, DM, Hyperlipidemia, Hypertension, Malignancy, Thyroid Disfunction Parental Family History Reviewed: Yes Children Family History Reviewed: Yes Sibling(s) Family History Reviewed.: Yes Medication/Allergy Home Medications: Omeprazole 40 mg PO DAILY 04/02/18 Azithromycin [Zithromax 250 mg Tablet] 250 mg PO DAILY MDD LAST DOSE 11/2311/22/18 Duloxetine HCl [Cymbalta 30 mg Capsule.dr] 60 mg PO DAILY 11/22/18 Insulin Degludec [Tresiba Flextouch U-100] 30 unit SQ DAILY 11/22/18 Losartan/Hydrochlorothiazide [Hyzaar 100-12.5 Tablet] 1 each PO DAILY 11/22/18 Quetiapine Fumarate [Seroquel 100 mg Tablet] 100 mg PO DAILY 11/22/18 Allergies/Adverse Reactions: Penicillins Allergy (Unknown, Verified 11/22/18 09:49) cephalexin monohydrate [From Keflex] Allergy (Verified 11/22/18 09:49) ciprofloxacin [From Cipro] Allergy (Verified 11/22/18 09:49) codeine Allergy (Verified 11/22/18 09:49) Iodinated Contrast- Oral and IV Dye [IV Dye, Iodine Containing] Allergy (Veri fied 11/22/18 09:49) latex [Latex] Allergy (Verified 11/22/18 09:49) metformin Allergy (Verified 11/22/18 09:49) nitrofurantoin macrocrystalline [From Macrodantin] Allergy (Verified 11/22/18 09:49) penicillin G Allergy (Verified 11/22/18 09:49) Sulfa (Sulfonamide Antibiotics) Allergy (Verified 11/22/18 09:49) tetracycline [Tetracycline] Allergy (Verified 11/22/18 09:49) nitroglycerin [From Nitrostat] Adverse Reaction (Verified 11/22/18 09:49) Review of Systems Review of Systems: as per hpi Constitutional: ABSENT: chills, fever(s), headache(s), weight gain, weight loss Eyes: ABSENT: visual disturbances Ears: ABSENT: hearing changes Cardiovascular: ABSENT: chest pain, dyspnea on exertion, edema, orthropnea, palpitations Respiratory: ABSENT: cough, hemoptysis Gastrointestinal: PRESENT: nausea. ABSENT: abdominal pain, constipation, diarrhea, hematemesis, hematochezia, vomiting Musculoskeletal: ABSENT: joint swelling Neurological: PRESENT: lack of coordination, numbness, paresthesias. ABSENT: abnormal gait, abnormal speech, confusion, dizziness, focal weakness, syncope Psychiatric: ABSENT: anxiety, depression, homidical ideation, suicidal ideation Physical Exam Vital Signs: Temp Pulse Resp BP Pulse Ox 97.7 F 96 17 187/94 H 100 11/22/18 09:53 11/22/18 09:53 11/22/18 13:10 11/22/18 13:10 11/22/18 13:10 Intake & Output 11/21/18 11/22/18 11/23/18 06:59 06:59 06:59 Intake Total 1999 Balance 1999 Weight 78 kg General appearance: PRESENT: no acute distress, obese, well-developed, well- nourished Head exam: PRESENT: atraumatic, normocephalic Respiratory exam: PRESENT: clear to auscultation gerardo. ABSENT: rales, rhonchi, wheezes Cardiovascular exam: PRESENT: RRR. ABSENT: diastolic murmur, rubs, systolic murmur GI/Abdominal exam: PRESENT: normal bowel sounds, soft. ABSENT: distended, guarding, mass, organolmegaly, rebound, tenderness Extremities exam: PRESENT: full ROM. ABSENT: calf tenderness, clubbing, pedal edema Neurological exam: PRESENT: alert, awake, oriented to person, oriented to place, oriented to time, oriented to situation, abnormal gait - Left lateral gaze nystagmus. Diminishes after 3 beats., CN II-XII grossly intact. ABSENT: motor sensory deficit Results Laboratory Results: 11/22/18 10:12 11/22/18 10:12 11/22/18 11/22/18 11/22/18 10:12 10:12 11:10 WBC 9.5 RBC 5.81 H Hgb 16.0 H Hct 46.6 MCV 80 MCH 27.5 MCHC 34.3 RDW 14.1 H Plt Count 253 Seg Neutrophils % 69.3 Lymphocytes % 21.2 Monocytes % 7.6 Eosinophils % 1.3 Basophils % 0.6 Absolute Neutrophils 6.6 Absolute Lymphocytes 2.0 Absolute Monocytes 0.7 Absolute Eosinophils 0.1 Absolute Basophils 0.1 Sodium 139.0 Potassium 4.2 Chloride 101 Carbon Dioxide 29 Anion Gap 9 BUN 18 Creatinine 0.56 Est GFR ( Amer) > 60 Est GFR (Non-Af Amer) > 60 Glucose 262 H Calcium 10.0 Total Bilirubin 1.1 AST 32 ALT 35 Alkaline Phosphatase 78 Total Protein 8.7 H Albumin 5.0 Urine Color YELLOW Urine Appearance CLOUDY Urine pH 5.0 Ur Specific [place] 1.025 Urine Protein NEGATIVE Urine Glucose (UA) >=500 H Urine Ketones 20 H Urine Blood NEGATIVE Urine Nitrite NEGATIVE Ur Leukocyte Esterase SMALL H Urine WBC (Auto) 5 Urine RBC (Auto) 5 11/22/18 10:12 Troponin I < 0.012 Impressions: Head CT 11/22/18 10:54 IMPRESSION: NORMAL BRAIN CT WITHOUT CONTRAST. EVIDENCE OF ACUTE STROKE: NO. Head CTA 11/22/18 10:54 IMPRESSION: NO CTA EVIDENCE OF STENOSIS OR ANEURYSM OF THE [place]. Neck CTA 11/22/18 10:54 IMPRESSION: NORMAL CTA OF THE EXTRA-CRANIAL CAROTID AND VERTEBRAL ARTERIES. Extremely tortuous right carotid. Assessment and Plan - Diagnosis (1) Loss of balance Is this a current diagnosis for this admission?: Yes Plan: CT/CTA head negative. Denies vertigo. Negative Yousuf-Hallpike maneuver. Positive for left gaze horizontal nystagmus which diminishes after 3 beats. Recent otitis treated with azithromycin. CVA in posterior circulation vs vestibular disease such as due to recent ear infection. In the light of patient high risk such as diabetes hypertension and previous CVA will admit to IMCU to rule out an acute stroke. Admit to telemetry, antiplatelets, MRI, statins, PT/OT/ST. (2) H/O ischemic left MCA stroke Is this a current diagnosis for this admission?: Yes Plan: History of left MCA stroke. As per patient's no residual deficits. Continue statins, antiplatelets, optimize blood pressure. (3) Diabetic neuropathy Qualifiers: Diabetes mellitus type: type 2 Diabetes mellitus complication detail: diabetic polyneuropathy Qualified Code(s): E11.42 - Type 2 diabetes mellitus with diabetic polyneuropathy Is this a current diagnosis for this admission?: Yes Plan: Continue duloxetine. Optimize diabetic control. Monitor for falls. (4) Insomnia Is this a current diagnosis for this admission?: No Plan: Patient takes Seroquel for insomnia. Restart. (5) Depression Qualifiers: Is this a current diagnosis for this admission?: No Plan: Denies any suicidal or homicidal ideation. Restart duloxetine. (6) HLD (hyperlipidemia) Is this a current diagnosis for this admission?: Yes Plan: Diet and lifestyle modification. High intensity statins. (7) HTN (hypertension) Is this a current diagnosis for this admission?: Yes Plan: Permissive hypertension for possible acute CVA. Start home meds. PRN IV hydralazine.
[2018-11-22 14:44] LABS: URINE AMPHETAMINES SCREEN NEGATIVE; URINE BARBITURATES SCREEN NEGATIVE; URINE BENZODIAZEPINES SCREEN NEGATIVE; URINE COCAINE SCREEN NEGATIVE; URINE MARIJUANA (THC) SCREEN NEGATIVE; URINE METHADONE SCREEN NEGATIVE; URINE PHENCYCLIDINE SCREEN NEGATIVE
--- NOTE | 2018-11-22 15:29 | RADIOLOGY REPORT (SQ) ---
EXAM DESCRIPTION: MRI HEAD WITHOUT COMPLETED DATE/TIME: 11/22/2018 3:13 pm REASON FOR STUDY: r/o acute CVA COMPARISON: 09/30/2014 TECHNIQUE: Multiplanar imaging includes non-contrasted T1, T2, FLAIR, and Diffusion with ADC map seq uences. Images stored on PACS. LIMITATIONS: None. FINDINGS: ANATOMY: No anomalies. Normal vascular flow voids. Pituitary fossa normal. CSF SPACES: Normal in size and contour. No hemorrhage. CEREBRUM: A few high-signal intensity lesions scattered throughout the white matter on FLAIR imaging with distribution suggesting chronic micro-vascular ischemic change. Sulci and gyri normal in size a nd contour. No evidence of hemorrhage, mass or extraaxial fluid collection. POSTERIOR FOSSA: No signal alteration. No hemorrhage. No edema, masses or mass effect. Internal justin tory canals, cerebello-pontine angles, mastoids normal. DIFFUSION: 8 mm focus of restricted diffusion in the left cerebellar peduncle consistent with acute o r sub-acute infarction. ORBITS: No masses. Globes normal. PARANASAL SINUSES: No fluid levels. Mucosa normal. OTHER: No other significant finding. IMPRESSION: 8 mm focus of restricted diffusion in the left cerebellar peduncle consistent with acute or sub-acute lacunar infarction. EVIDENCE OF ACUTE STROKE: YES. LEFT VERTEBROBASILAR. TECHNICAL DOCUMENTATION: JOB ID: [id number] [id number] 2010 [employer]- All Rights Reserved Reading location - IP/workstation name: [email or web address]
[2018-11-22] MEDS: INSULIN LISPRO 100 UNIT/ML 3 ML VIAL SUBCUT SCH ×2 (17:47→21:14)
[2018-11-22] MEDS: HEPARIN SOD (PORCINE) 5,000 UNIT/ML 1 ML SYRINGE SUBCUT SCH ×2 (17:48→21:15)
[2018-11-22] MEDS: DULOXETINE HCL 30 MG CAPSULE.DR PO SCH (17:48)
--- NOTE | 2018-11-22 18:39 | EKG REPORT ---
SEVERITY:- BORDERLINE ECG - SINUS RHYTHM LVH BY VOLTAGE : Confirmed by: Eileen Bellamy MD 22-Nov-2018 18:39:07
[2018-11-22] MEDS: QUETIAPINE FUMARATE 100 MG TABLET PO SCH (21:13)
[2018-11-22] MEDS: ATORVASTATIN CALCIUM 40 MG TABLET PO SCH (21:14)
[2018-11-22] MEDS: FAMOTIDINE 20 MG TABLET PO SCH (21:14)
[2018-11-22] MEDS: ONDANSETRON HCL INJ/PF 4 MG/2 ML SDV IV PRN (22:13)
[2018-11-23] MEDS: TEMAZEPAM 15 MG CAPSULE PO PRN ×2 (00:56→21:14)
[2018-11-23 04:50] LABS: ABSOLUTE BASOPHILS # (AUTO) 0.1 10^3/uL (0.0-0.2); ABSOLUTE EOSINOPHILS # (AUTO) 0.2 10^3/uL (0.0-0.6); ABSOLUTE LYMPHOCYTES (AUTO) 2.7 10^3/uL (0.5-4.7); ABSOLUTE MONOCYTES (AUTO) 0.7 10^3/uL (0.1-1.4); ABSOLUTE NEUT (AUTO) 3.3 10^3/uL (1.7-8.2); BASOPHILS % (AUTO) 0.9 % (0-2); EOSINOPHILS % (AUTO) 2.4 % (0-6); HEMATOCRIT 39.1 % (36.0-47.0); LYMPHOCYTES % (AUTO) 38.9 % (13-45); MEAN CORPUSCULAR HEMOGLOBIN 27.7 pg (27.0-33.4); MEAN CORPUSCULAR HGB CONC 34.8 g/dL (32.0-36.0); MEAN CORPUSCULAR VOLUME 79 fl (80-97); MONOCYTES % (AUTO) 10.4 % (3-13); PLATELET COUNT 199 10^3/uL (150-450); RED BLOOD COUNT 4.92 10^6/uL (3.72-5.28); RED CELL DISTRIBUTION WIDTH 13.3 % (11.5-14.0); SEGMENTED NEUTROPHILS % (AUTO) 47.4 % (42-78); TOTAL CELLS COUNTED % (AUTO) 100 %; WHITE BLOOD COUNT 6.9 10^3/uL (4.0-10.5)
[2018-11-23 05:10] LABS: ANION GAP 8 (5-19); BLOOD UREA NITROGEN 12 mg/dL (7-20); CALCIUM 8.9 mg/dL (8.4-10.2); CARBON DIOXIDE 27 mmol/L (22-30); CHLORIDE 104 mmol/L (98-107); CHOLESTEROL 181.79 mg/dL (0-200); GLUCOSE 160 mg/dL (75-110); POTASSIUM 3.8 mmol/L (3.6-5.0); SODIUM 138.7 mmol/L (137-145); TRIGLYCERIDES 160 mg/dL (<150)
[2018-11-23 05:12] LABS: HEMOGLOBIN 13.6 g/dL (12.0-15.5)
[2018-11-23 05:21] LABS: DIRECT LDL 119 mg/dL (<100)
[2018-11-23] MEDS: HEPARIN SOD (PORCINE) 5,000 UNIT/ML 1 ML SYRINGE SUBCUT SCH ×3 (05:23→21:14)
[2018-11-23] MEDS: INSULIN LISPRO 100 UNIT/ML 3 ML VIAL SUBCUT SCH ×4 (08:02→21:14)
[2018-11-23] MEDS: DULOXETINE HCL 30 MG CAPSULE.DR PO SCH (09:01)
[2018-11-23] MEDS: NORMAL SALINE 1000 ML 1,000 ML IV PRN (09:01)
[2018-11-23] MEDS: FAMOTIDINE 20 MG TABLET PO SCH ×2 (09:01→21:14)
[2018-11-23] MEDS: ASPIRIN 81 MG TABLET, CHEWABLE PO SCH (09:01)
--- NOTE | 2018-11-23 11:43 | PDOC PROGRESS REPORT ---
Subjective Progress Note for:: 11/23/18 Subjective:: 58 year old female past medical history of left MCA stroke, hypertension, diabetes, diabetic neuropathy, hyperlipidemia, anxiety, insomnia, depression, presenting to ED complaining of loss of balance and left-sided numbness. 3 days ago patient visited ED complaining of vomiting and dizziness. And was sent home with some antiemetics. Nausea and vomiting has resolved since then. Today in the morning she felt nauseous again with global headache which started last night with occasional left arm heaviness since then. Patient is stating that she is fine at rest but when she tries to walk she feels like she is going to fall forward. Denies any falls. Denies any lightheadedness or vertigo. Patient had a Holter monitor placed 2 days ago which she removed stating that it was causing a rash. She was also started on Zithromax and Phenergan for recent sinus infection. In ED CT head and CTA head were negative for any acute stroke. Hospitalist was consulted for admission. On physical examination there was nystagmus on left lateral gaze which diminishes after 3 beats. [place]-Hallpike maneuver negative. Motor examination is WNL, DTRs 2+ bilaterally, decreased sensation on left lower and upper extremity. There is no pronator drift, however patient is unsteady gait. 11/[id number]-old female with previous history of left MCA stroke, diabetes, hypertension, hyperlipidemia came in with left-sided numbness and unsteady gait. MRI of the of the brain shows 8 mm focus of posterior diffuse lesion in the left cerebral peduncle. And he still complaining of left-sided weakness/slurred speech and unsteady gait. Physical therapy is working with the patient. Patient prefers to go home with home health. Reason For Visit: LOSS OF BALANCE,LT SIDED NUMBNESS Physical Exam Vital Signs: Temp Pulse Resp BP Pulse Ox 98.0 F 75 14 161/73 H 98 11/23/18 07:29 11/23/18 08:00 11/23/18 08:00 11/23/18 08:00 11/23/18 08:00 Intake & Output 11/22/18 11/23/18 11/24/18 06:59 06:59 06:59 Intake Total 2222 1000 Output Total 1900 Balance 322 1000 Weight 77.2 kg General appearance: PRESENT: no acute distress Head exam: PRESENT: atraumatic Eye exam: PRESENT: PERRLA Mouth exam: PRESENT: moist, tongue midline Respiratory exam: PRESENT: clear to auscultation gerardo. ABSENT: rales, rhonchi, wheezes Cardiovascular exam: PRESENT: RRR. ABSENT: diastolic murmur, rubs, systolic m urmur GI/Abdominal exam: PRESENT: normal bowel sounds, soft. ABSENT: distended, guarding, mass, organolmegaly, rebound, tenderness Rectal exam: PRESENT: deferred Neurological exam: PRESENT: alert, awake, oriented to person, oriented to place, oriented to time, oriented to situation, other - Patient has a slight slurred speech, power in the left upper arm left lower leg is 4/5. Results Laboratory Results: 11/23/18 03:55 11/23/18 03:55 11/22/18 11/23/18 11/23/18 11:10 03:55 03:55 WBC 6.9 RBC 4.92 Hgb 13.6 D Hct 39.1 MCV 79 L MCH 27.7 MCHC 34.8 RDW 13.3 Plt Count 199 Seg Neutrophils % 47.4 Lymphocytes % 38.9 Monocytes % 10.4 Eosinophils % 2.4 Basophils % 0.9 Absolute Neutrophils 3.3 Absolute Lymphocytes 2.7 Absolute Monocytes 0.7 Absolute Eosinophils 0.2 Absolute Basophils 0.1 Sodium 138.7 Potassium 3.8 Chloride 104 Carbon Dioxide 27 Anion Gap 8 BUN 12 Creatinine 0.53 Est GFR ( Amer) > 60 Est GFR (Non-Af Amer) > 60 Glucose 160 H Calcium 8.9 Triglycerides 160 H Cholesterol 181.79 LDL Cholesterol Direct 119 H VLDL Cholesterol 32.0 H HDL Cholesterol 39 L Urine Color YELLOW Urine Appearance CLOUDY Urine pH 5.0 Ur Specific [place] 1.025 Urine Protein NEGATIVE Urine Glucose (UA) >=500 H Urine Ketones 20 H Urine Blood NEGATIVE Urine Nitrite NEGATIVE Ur Leukocyte Esterase SMALL H Urine WBC (Auto) 5 Urine RBC (Auto) 5 11/22/18 11:10 Clean Catch Midstream Urine Culture - Final Mixed Urogenital [place] 11/22/18 10:12 Troponin I < 0.012 Impressions: Head CT 11/22/18 10:54 IMPRESSION: NORMAL BRAIN CT WITHOUT CONTRAST. EVIDENCE OF ACUTE STROKE: NO. Head CTA 11/22/18 10:54 IMPRESSION: NO CTA EVIDENCE OF STENOSIS OR ANEURYSM OF THE [place]. Neck CTA 11/22/18 10:54 IMPRESSION: NORMAL CTA OF THE EXTRA-CRANIAL CAROTID AND VERTEBRAL ARTERIES. Extremely tortuous right carotid. Head MRI 11/22/18 13:40 IMPRESSION: 8 mm focus of restricted diffusion in the left cerebellar peduncle consistent with acute or sub-acute lacunar infarction. EVIDENCE OF ACUTE STROKE: YES. LEFT VERTEBROBASILAR. Assessment and Plan - Diagnosis (1) CVA (cerebral vascular accident) Qualifiers: CVA mechanism: unspecified Qualified Code(s): I63.9 - Cerebral infarction, unspecified Is this a current diagnosis for this admission?: Yes Plan: 11/23/2018-this elderly female with multiple medical problems came in with left- sided weakness and slurred speech and unsteady gait MRI of the brain found to have a small ischemic stroke in the left cerebellar peduncle. Started on asp irin, statins and Plavix today. She is also on Lovenox prophylactic dose. PT consult OT consult was requested speech evaluation was done no swallowing problems. Patient's prefers to go home with home health. (2) Loss of balance Is this a current diagnosis for this admission?: Yes Plan: CT/CTA head negative. Denies vertigo. Negative Yousuf-Hallpike maneuver. Positive for left gaze horizontal nystagmus which diminishes after 3 beats. Recent otitis treated with azithromycin. CVA in posterior circulation vs vestibular disease such as due to recent ear infection. In the light of patient high risk such as diabetes hypertension and previous CVA will admit to [facility] to rule out an acute stroke. Admit to telemetry, antiplatelets, MRI, statins, PT/OT/ST. 11/23/2018-patient with complaints of loss of balance. CT CTA of the head is negative. MRI of the brain is positive for ischemic stroke. PT OT consult was requested presently on aspirin statins Plavix. Patient is preferring to go home on with home health. On examination still have a slight slurred speech but in the left upper arm is 4/5 left lower leg is 4/5. (3) H/O ischemic left MCA stroke Is this a current diagnosis for this admission?: Yes Plan: History of left MCA stroke. As per patient's no residual deficits. Continue statins, antiplatelets, optimize blood pressure. 11/23/2018-patient has history of ischemic stroke before now admitted with new tiny stroke in the cerebellar peduncle presently on aspirin Plavix statins, Lovenox PT OT consult was requested. Blood pressure is 148/87 restarted on losartan/hydrochlorothiazide. (4) Diabetic neuropathy Qualifiers: Diabetes mellitus type: type 2 Diabetes mellitus complication detail: diabetic polyneuropathy Qualified Code(s): E11.42 - Type 2 diabetes mellitus with diabetic polyneuropathy Is this a current diagnosis for this admission?: Yes Plan: Continue duloxetine. Optimize diabetic control. Monitor for falls. 11/23/2018-patient has history of diabetes mellitus with diabetic neuropathy no complaints today. To continue duloxetine. (5) Insomnia Is this a current diagnosis for this admission?: No Plan: Patient takes Seroquel for insomnia. Restart. (6) Hypertension Qualifiers: Hypertension type: unspecified Qualified Code(s): I10 - Essential (primary) hypertension Is this a current diagnosis for this admission?: No Plan: 11/23/2018-patient has history of hypertension and blood pressure today is 148/87 losartan/hydrochlorothiazide was restarted today. - Time Time Spent with patient: 25-34 minutes Medications reviewed and adjusted accordingly: Yes Anticipated discharge: Home with Homehealth
[2018-11-23] MEDS: HYDROCHLOROTHIAZIDE 12.5 MG TABLET PO SCH (12:33)
[2018-11-23] MEDS: LOSARTAN POTASSIUM 50 MG TABLET PO SCH (12:33)
[2018-11-23] MEDS: CLOPIDOGREL BISULFATE 75 MG TABLET PO SCH (12:33)
[2018-11-23] MEDS: OXYCODONE-ACETAMINOPHEN 5-325 MG TABLET PO PRN (12:38)
[2018-11-23] MEDS: QUETIAPINE FUMARATE 100 MG TABLET PO SCH (21:14)
[2018-11-23] MEDS: ATORVASTATIN CALCIUM 40 MG TABLET PO SCH (21:14)
[2018-11-24 05:07] LABS: ABSOLUTE BASOPHILS # (AUTO) 0.1 10^3/uL (0.0-0.2); ABSOLUTE EOSINOPHILS # (AUTO) 0.2 10^3/uL (0.0-0.6); ABSOLUTE LYMPHOCYTES (AUTO) 2.1 10^3/uL (0.5-4.7); ABSOLUTE MONOCYTES (AUTO) 0.7 10^3/uL (0.1-1.4); ABSOLUTE NEUT (AUTO) 3.2 10^3/uL (1.7-8.2); BASOPHILS % (AUTO) 1.3 % (0-2); EOSINOPHILS % (AUTO) 2.8 % (0-6); HEMATOCRIT 43.9 % (36.0-47.0); HEMOGLOBIN 15.3 g/dL (12.0-15.5); LYMPHOCYTES % (AUTO) 33.1 % (13-45); MEAN CORPUSCULAR HEMOGLOBIN 27.7 pg (27.0-33.4); MEAN CORPUSCULAR HGB CONC 34.9 g/dL (32.0-36.0); MEAN CORPUSCULAR VOLUME 79 fl (80-97); PLATELET COUNT 214 10^3/uL (150-450); RED BLOOD COUNT 5.54 10^6/uL (3.72-5.28); RED CELL DISTRIBUTION WIDTH 13.6 % (11.5-14.0); SEGMENTED NEUTROPHILS % (AUTO) 51.8 % (42-78); TOTAL CELLS COUNTED % (AUTO) 100 %; WHITE BLOOD COUNT 6.3 10^3/uL (4.0-10.5)
[2018-11-24 05:33] LABS: ALANINE AMINOTRANSFERASE 29 U/L (9-52); ALBUMIN 4.4 g/dL (3.5-5.0); ALKALINE PHOSPHATASE 75 U/L (38-126); ANION GAP 11 (5-19); ASPARTATE AMINO TRANSFERASE 22 U/L (14-36); BILIRUBIN,DIRECT 0.3 mg/dL (0.0-0.4); BILIRUBIN,TOTAL 1.2 mg/dL (0.2-1.3); BLOOD UREA NITROGEN 15 mg/dL (7-20); CALCIUM 9.4 mg/dL (8.4-10.2); CARBON DIOXIDE 30 mmol/L (22-30); CHLORIDE 96 mmol/L (98-107); GLUCOSE 222 mg/dL (75-110); POTASSIUM 4.2 mmol/L (3.6-5.0); SODIUM 136.7 mmol/L (137-145); TOTAL PROTEIN 7.3 g/dL (6.3-8.2)
[2018-11-24] MEDS: HEPARIN SOD (PORCINE) 5,000 UNIT/ML 1 ML SYRINGE SUBCUT SCH ×3 (05:35→21:23)
[2018-11-24] MEDS: INSULIN LISPRO 100 UNIT/ML 3 ML VIAL SUBCUT SCH ×4 (08:36→21:23)
[2018-11-24] MEDS: ASPIRIN 81 MG TABLET, CHEWABLE PO SCH (09:08)
[2018-11-24] MEDS: MECLIZINE HCL 12.5 MG TABLET PO PRN (09:08)
[2018-11-24] MEDS: FAMOTIDINE 20 MG TABLET PO SCH ×2 (09:08→21:24)
[2018-11-24] MEDS: HYDROCHLOROTHIAZIDE 12.5 MG TABLET PO SCH (09:08)
[2018-11-24] MEDS: LOSARTAN POTASSIUM 50 MG TABLET PO SCH (09:08)
[2018-11-24] MEDS: DULOXETINE HCL 30 MG CAPSULE.DR PO SCH (09:08)
[2018-11-24] MEDS: CLOPIDOGREL BISULFATE 75 MG TABLET PO SCH (09:08)
[2018-11-24] MEDS ORDERED: (PENDING PHARMACY ID) (Losartan/Hydrochlorothiazide [Hyzaar 100-12.5 Tablet] 1 EACH) PO SCH (10:00)
[2018-11-24] MEDS: OXYCODONE-ACETAMINOPHEN 5-325 MG TABLET PO PRN (10:40)
--- NOTE | 2018-11-24 10:45 | PDOC PROGRESS REPORT ---
Subjective Progress Note for:: 11/24/18 Subjective:: 58 year old female past medical history of left MCA stroke, hypertension, diabetes, diabetic neuropathy, hyperlipidemia, anxiety, insomnia, depression, presenting to ED complaining of loss of balance and left-sided numbness. 3 days ago patient visited ED complaining of vomiting and dizziness. And was sent home with some antiemetics. Nausea and vomiting has resolved since then. Today in the morning she felt nauseous again with global headache which started last night with occasional left arm heaviness since then. Patient is stating that she is fine at rest but when she tries to walk she feels like she is going to fall forward. Denies any falls. Denies any lightheadedness or vertigo. Patient had a Holter monitor placed 2 days ago which she removed stating that it was causing a rash. She was also started on Zithromax and Phenergan for recent sinus infection. In ED CT head and CTA head were negative for any acute stroke. Hospitalist was consulted for admission. On physical examination there was nystagmus on left lateral gaze which diminishes after 3 beats. [place]-Hallpike maneuver negative. Motor examination is WNL, DTRs 2+ bilaterally, decreased sensation on left lower and upper extremity. There is no pronator drift, however patient is unsteady gait. 11/23/[id number]-eptj-old female with previous history of left MCA stroke, diabetes, hypertension, hyperlipidemia came in with left-sided numbness and unsteady gait. MRI of the of the brain shows 8 mm focus of posterior diffuse lesion in the left cerebral peduncle. And he still complaining of left-sided weakness/slurred speech and unsteady gait. Physical therapy is working with the patient. Patient prefers to go home with home health. 11/24/[id number]-kyaj-old female with history of CVA admitted with complaints of left-sided weakness And slurred speech unsteady gait MRI shows a small ischemic infarct in the left cerebellar peduncle PT consult was requested OT consult was requested land use planner is on board. Patient is still having the dizzy spells despite receiving meclizine and still has the unsteady gait. Physical therapy evaluated the patient this morning the recommendation is placement to skilled facility. Patient is too unsafe to go home with home health. I had a long talk with the patient and patient agreed to go to a long term facility. Reason For Visit: ACUTE ONSET CVA Physical Exam Vital Signs: Temp Pulse Resp BP Pulse Ox 97.1 F 75 16 111/67 94 11/24/18 08:10 11/24/18 08:10 11/24/18 08:10 11/24/18 08:10 11/24/18 08:10 Intake & Output 11/23/18 11/24/18 11/25/18 06:59 06:59 06:59 Intake Total 2222 2408 Output Total 1900 600 Balance 322 1808 Weight 77.2 kg 74.9 kg General appearance: PRESENT: no acute distress, well-developed Head exam: PRESENT: atraumatic Eye exam: PRESENT: PERRLA Ear exam: PRESENT: normal external ear exam Mouth exam: PRESENT: moist, tongue midline Teeth exam: PRESENT: poor dentation Neck exam: ABSENT: carotid bruit, JVD, lymphadenopathy, thyromegaly Respiratory exam: PRESENT: clear to auscultation gerardo. ABSENT: rales, rhonchi, wheezes Cardiovascular exam: PRESENT: RRR. ABSENT: diastolic murmur, rubs, systolic murmur GI/Abdominal exam: PRESENT: normal bowel sounds, soft. ABSENT: distended, guarding, mass, organolmegaly, rebound, tenderness Rectal exam: PRESENT: deferred Extremities exam: PRESENT: full ROM. ABSENT: calf tenderness, clubbing, pedal edema Neurological exam: PRESENT: alert, awake, oriented to person, oriented to place, oriented to time, oriented to situation, CN II-XII grossly intact. ABSENT: motor sensory deficit Psychiatric exam: PRESENT: appropriate affect, normal mood. ABSENT: homicidal ideation, suicidal ideation Results Laboratory Results: 11/24/18 04:40 11/24/18 04:40 11/24/18 11/24/18 11/24/18 04:40 04:40 04:40 WBC 6.3 RBC 5.54 H Hgb 15.3 Hct 43.9 MCV 79 L MCH 27.7 MCHC 34.9 RDW 13.6 Plt Count 214 Seg Neutrophils % 51.8 Lymphocytes % 33.1 Monocytes % 11.0 Eosinophils % 2.8 Basophils % 1.3 Absolute Neutrophils 3.2 Absolute Lymphocytes 2.1 Absolute Monocytes 0.7 Absolute Eosinophils 0.2 Absolute Basophils 0.1 Sodium 136.7 L Potassium 4.2 Chloride 96 L Carbon Dioxide 30 Anion Gap 11 BUN 15 Creatinine 0.68 Est GFR ( Amer) > 60 Est GFR (Non-Af Amer) > 60 Glucose 222 H Calcium 9.4 Magnesium 1.9 Total Bilirubin 1.2 AST 22 ALT 29 Alkaline Phosphatase 75 Total Protein 7.3 Albumin 4.4 11/22/18 11:10 Clean Catch Midstream Urine Culture - Final Mixed Urogenital Tangela 11/22/18 10:12 Troponin I < 0.012 Impressions: Head CT 11/22/18 10:54 IMPRESSION: NORMAL BRAIN CT WITHOUT CONTRAST. EVIDENCE OF ACUTE STROKE: NO. Head CTA 11/22/18 10:54 IMPRESSION: NO CTA EVIDENCE OF STENOSIS OR ANEURYSM OF THE [place]. Neck CTA 11/22/18 10:54 IMPRESSION: NORMAL CTA OF THE EXTRA-CRANIAL CAROTID AND VERTEBRAL ARTERIES. Extremely tortuous right carotid. Head MRI 11/22/18 13:40 IMPRESSION: 8 mm focus of restricted diffusion in the left cerebellar peduncle consistent with acute or sub-acute lacunar infarction. EVIDENCE OF ACUTE STROKE: YES. LEFT VERTEBROBASILAR. Assessment and Plan - Diagnosis (1) CVA (cerebral vascular accident) Qualifiers: CVA mechanism: unspecified Qualified Code(s): I63.9 - Cerebral infarction, unspecified Is this a current diagnosis for this admission?: Yes Plan: 11/23/2018-this elderly female with multiple medical problems came in with left- sided weakness and slurred speech and unsteady gait MRI of the brain found to have a small ischemic stroke in the left cerebellar peduncle. Started on aspirin, statins and Plavix today. She is also on Lovenox prophylactic dose. PT consult OT consult was requested speech evaluation was done no swallowing pro blems. Patient's prefers to go home with home health. 11/24/[id number]-iboe-old female admitted with new onset CVA. MRI shows small ischemic stroke in the left cerebellar peduncle. Patient agreed to go to long term facility for rehab. still Complaining of dizziness unsteady gait this morning. (2) Loss of balance Is this a current diagnosis for this admission?: Yes Plan: CT/CTA head negative. Denies vertigo. Negative [place]-Hallpike maneuver. Positive for left gaze horizontal nystagmus which diminishes after 3 beats. R ecent otitis treated with azithromycin. CVA in posterior circulation vs vestibular disease such as due to recent ear infection. In the light of patient high risk such as diabetes hypertension and previous CVA will admit to IMCU to rule out an acute stroke. Admit to telemetry, antiplatelets, MRI, statins, PT/OT/ST. 11/23/2018-patient with complaints of loss of balance. CT CTA of the head is negative. MRI of the brain is positive for ischemic stroke. PT OT consult was requested presently on aspirin statins Plavix. Patient is preferring to go home on with home health. On examination still have a slight slurred speech but in the left upper arm is 4/5 left lower leg is 4/5. 11/24/2018-patient still have unsteady gait. Due to new onset stroke. (3) H/O ischemic left MCA stroke Is this a current diagnosis for this admission?: Yes (4) Diabetic neuropathy Qualifiers: Diabetes mellitus type: type 2 Diabetes mellitus complication detail: diabetic polyneuropathy Qualified Code(s): E11.42 - Type 2 diabetes mellitus with diabetic polyneuropathy Is this a current diagnosis for this admission?: Yes Plan: Continue duloxetine. Optimize diabetic control. Monitor for falls. 11/23/2018-patient has history of diabetes mellitus with diabetic neuropathy no complaints today. To continue duloxetine. 11/24/2018-patient has history of diabetic neuropathy no complaints this morning. (5) Insomnia Is this a current diagnosis for this admission?: No (6) Hypertension Qualifiers: Hypertension type: unspecified Qualified Code(s): I10 - Essential (primary) hypertension Is this a current diagnosis for this admission?: No Plan: 11/23/2018-patient has history of hypertension and blood pressure today is 148/87 losartan/hydrochlorothiazide was restarted today. 11/24/2018-blood pressure today is 122/72. Stable. Presently on losa rtan/hydrochlorothiazide. Plan is to continue the present management. - Time Time Spent with patient: 25-34 minutes Medications reviewed and adjusted accordingly: Yes Anticipated discharge: SNF
--- NOTE | 2018-11-24 12:00 | Physical Med & Rehab Consult ---
Consultation Consult Date: 11/24/18 Provider Consulted: EDNA THAO Consult reason:: Evaluation for admission to acute inpatient rehabilitation History of Present Illness Admission Date/PCP: 11/23/18 13:08 Patient complains of: Left-sided weakness and difficulty ambulating History of Present Illness: JACKELYN OSEI is a 58-year-old right-handed female with past medical history of left MCA CVA in the with no residual deficits, hypertension, diabetes mellitus with diabetic neuropathy, hyperlipidemia, anxiety, insomnia, depression, asthma, migraine headaches, cervical cancer status post hysterectomy, GERD, arthritis, fibromyalgia, x2, cholecystectomy, hysterectomy, multiple orthopedic surgeries (bilateral toes, bilateral elbows, and left knee surgery x2), tubal ligation, and ventral hernia repair with pseudocyst removal admitted to [facility] on 11/22/2018 after presenting with nausea, global headache, and occasional left arm heaviness and being found to have an 8 mm focus of restricted diffusion in the left cerebellar peduncle consistent with acute or subacute lacunar infarction on MRI of the brain. CT angiogram of the head was negative for evidence of stenosis or aneurysm of the [place], and a gram of the neck demonstrated normal extracranial carotid and vertebral arteries with extremely tortuous right gutierres tid artery. Of note, the patient had been wearing a Holter monitor prior to admission for heart palpitations, but this was discontinued after she was noted to have a rash. Additionally, she was started on Zithromax and Phenergan for recent sinus infection. Further stroke work-up demonstrated total cholesterol of 182, LDL of 119, and hemoglobin A1c of 9.9%. The patient has been started on aspirin 81 mg daily, Plavix 75 mg daily, and atorvastatin 40 mg nightly for secondary stroke prophylaxis as well as subcutaneous heparin for DVT prophylaxis. Physical medicine and rehabilitation consultation was requested to evaluate the patient for admission to acute inpatient rehabilitation. Today, the patient was seen and examined in her room. She complains of decreased strength and sensation on the left side of her body as well as decreased perioral sensation. Her last bowel movement was 2 days ago, and she denies trouble with urination. She does admit to difficulty with ambulating as well as a headache, for which she took a Percocet. Past Medical History Cardiac Medical History: Reports: Hyperlipidema, Hypertension Pulmonary Medical History: Reports: Asthma Neurological Medical History: Reports: Migraine Endocrine Medical History: Reports: Diabetes Mellitus Type 1, Diabetes Mellitus Type 2 Denies: Hyperthyroidism, Hypothyroidism Malignancy Medical History: Reports: Cervical Cancer GI Medical History: Reports: Gastroesophageal Reflux Disease Denies: Cirrhosis, Hepatitis Musculoskeltal Medical History: Reports: Arthritis, Fibromyalgia Psychiatric Medical History: Reports: Depression Past Surgical History Past Surgical History: Reports: Section - 2, Cholecystectomy, Hysterectomy, Orthopedic Surgery - bilateral toes and elbows left knee twice, Tubal Ligation, Other - Ventral hernia and pseudocyst removal Denies: Appendectomy Social History Smoking Status: Unknown if Ever Smoked Cigarettes Packs Per Day: 2 Number of Years Smokin Last Time Smoked: 15 years ago Frequency of Alcohol Use: None Hx Recreational Drug Use: No Drugs: None Hx Prescription Drug Abuse: No Past Social History Note: Jackelyn Dahl lives with her in a 1 level home with 0 steps to enter and 0 steps to the bedroom and bathroom. 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 Her works full-time as a mailroom coordinator. Prior Functional Status: Active and independent with mobility and all ADLs. Ambulates without an assist device. Current Functional Status: Per therapy notes and discussion with acute care therapist, the patient currently requires supervision for bed mobility, supervision to minimum assistance for transfers, minimum to moderate assistance for ambulation of 50 feet x 3 without an assistive device due to scissoring and loss of balance, and minimum assistance for toileting. She is currently on a regular solids with thin liquids diet. Family History Family History: Arthritis, CVA, DM, Hyperlipidemia, Hypertension, Malignancy, Thyroid Disfunction Parental Family History Reviewed: Yes Children Family History Reviewed: NA Sibling(s) Family History Reviewed.: NA Medication/Allergy Home Medications: Omeprazole 40 mg PO DAILY 04/02/18 Azithromycin [Zithromax 250 mg Tablet] 250 mg PO DAILY MDD LAST DOSE 11/2311/22/18 Duloxetine HCl [Cymbalta 30 mg Capsule.dr] 60 mg PO DAILY 11/22/18 Insulin Degludec [Tresiba Flextouch U-100] 30 unit SQ DAILY 11/22/18 Losartan/Hydrochlorothiazide [Hyzaar 100-12.5 Tablet] 1 each PO DAILY 11/22/18 Quetiapine Fumarate [Seroquel 100 mg Tablet] 100 mg PO DAILY 11/22/18 Allergies/Adverse Reactions: Penicillins Allergy (Unknown, Verified 11/22/18 09:49) cephalexin monohydrate [From Keflex] Allergy (Verified 11/22/18 09:49) ciprofloxacin [From Cipro] Allergy (Verified 11/22/18 09:49) codeine Allergy (Verified 11/22/18 09:49) Iodinated Contrast- Oral and IV Dye [IV Dye, Iodine Containing] Allergy (Verified 11/22/18 09:49) latex [Latex] Allergy (Verified 11/22/18 09:49) metformin Allergy (Verified 11/22/18 09:49) nitrofurantoin macrocrystalline [From Macrodantin] Allergy (Verified 11/22/18 09:49) penicillin G Allergy (Verified 11/22/18 09:49) Sulfa (Sulfonamide Antibiotics) Allergy (Verified 11/22/18 09:49) tetracycline [Tetracycline] Allergy (Verified 11/22/18 09:49) nitroglycerin [From Nitrostat] Adverse Reaction (Verified 11/22/18 09:49) Review of Systems Review of Systems: Constitutional: No fevers, chills, sweats, weight loss Eye: No recent visual problems, no blurry vision, no double vision ENMT: Patient reports a recent sinus infection/"water in the ears." Respiratory: No shortness of breath, cough, sputum production Cardiovascular: No chest pain, palpitations, syncope Gastrointestinal: No nausea, vomiting, diarrhea, abdominal pain Genitourinary: No hematuria, dysuria, flank or suprapubic pain Abiodun/Lymph: Negative for bruising tendency, swollen lymph glands Endocrine: Negative for excessive thirst, excessive hunger, extreme fatigue Musculoskeletal: Positive for chronic right shoulder pain/weakness. Integumentary: Had a recent rash related to the monitor. Neurologic: Positive for headaches, focal weakness on the left, sensory deficits on the left, and mild dysarthria. Psychiatric: Positive for history of anxiety and depression. Physical Exam Vital Signs: Temp Pulse Resp BP Pulse Ox 97.1 F 75 16 111/67 94 11/24/18 08:10 11/24/18 08:10 11/24/18 08:10 11/24/18 08:10 11/24/18 08:10 Intake & Output 11/23/18 11/24/18 11/25/18 06:59 06:59 06:59 Intake Total 2222 2408 Output Total 1900 600 Balance 322 1808 Weight 77.2 kg 74.9 kg Exam: General: Awake and Alert. No acute distress. Resting comfortably in bed. Head: Normocephalic. Atraumatic. Eyes: Pupils equal, round, and reactive to light. EOMI. Sclera white. Did have nystagmus to the left. Ears: No drainage noted. Nose: Nares normal & without exudate. Oropharynx: Moist mucous membranes. Neck: Supple movements. Cardiovascular: Regular rate & rhythm. No murmurs, rubs, or gallops appreciated. Pulmonary: Lungs clear to auscultation bilaterally. No increased work of breathing. Gastrointestinal: Abdomen soft, non-tender, non-distended. Normoactive bowel sounds. Skin: Texture and turgor normal. Warm and dry. Psychiatric: Judgement and insight appear to be fair. Patient is oriented to d ate, location, and situation. Affect appropriate. Extremities: Arthritic changes of the feet are noted. Neurological: CN III-XII grossly intact, except that the patient exhibits mild dysarthria and reports perioral sensory deficit. Sensation to light touch is diminished at the feet and ankles bilaterally due to diabetic neuropathy. Tone is normal. Proprioception is normal. No Zhang's. No Babinski. Speech is fluent with good content but with mild dysarthria. [id number] testing paired o n the left. Muscle Strength: Full 5/5 strength in all major muscle groups of the 4 extremities, except 4/5 strength of right shoulder abductors and elbow dentures due to chronic shoulder pain and 4/5 strength of left hip flexors. Results Laboratory Results: 11/24/18 04:40 11/24/18 04:40 11/24/18 11/24/18 11/24/18 04:40 04:40 04:40 WBC 6.3 RBC 5.54 H Hgb 15.3 Hct 43.9 MCV 79 L MCH 27.7 MCHC 34.9 RDW 13.6 Plt Count 214 Seg Neutrophils % 51.8 Lymphocytes % 33.1 Monocytes % 11.0 Eosinophils % 2.8 Basophils % 1.3 Absolute Neutrophils 3.2 Absolute Lymphocytes 2.1 Absolute Monocytes 0.7 Absolute Eosinophils 0.2 Absolute Basophils 0.1 Sodium 136.7 L Potassium 4.2 Chloride 96 L Carbon Dioxide 30 Anion Gap 11 BUN 15 Creatinine 0.68 Est GFR ( Amer) > 60 Est GFR (Non-Af Amer) > 60 Glucose 222 H Calcium 9.4 Magnesium 1.9 Total Bilirubin 1.2 AST 22 ALT 29 Alkaline Phosphatase 75 Total Protein 7.3 Albumin 4.4 11/22/18 11:10 Clean Catch Midstream Urine Culture - Final Mixed Urogenital Tangela 11/22/18 10:12 Troponin I < 0.012 Impressions: Head CT 11/22/18 10:54 IMPRESSION: NORMAL BRAIN CT WITHOUT CONTRAST. EVIDENCE OF ACUTE STROKE: NO. Head CTA 11/22/18 10:54 IMPRESSION: NO CTA EVIDENCE OF STENOSIS OR ANEURYSM OF THE [place] OF [place]. Neck CTA 11/22/18 10:54 IMPRESSION: NORMAL CTA OF THE EXTRA-CRANIAL CAROTID AND VERTEBRAL ARTERIES. Extremely tortuous right carotid. Head MRI 11/22/18 13:40 IMPRESSION: 8 mm focus of restricted diffusion in the left cerebellar peduncle consistent with acute or sub-acute lacunar infarction. EVIDENCE OF ACUTE STROKE: YES. LEFT VERTEBROBASILAR. Assessment and Plan - Plan Summary Plan Summary: 58-year-old right-handed female with left cerebellar CVA resulting in left sided weakness and gait and ADL dysfunction. 1. Gait and ADL Dysfunction secondary to left cerebellar CVA. - Continue PT and OT to maximize mobility, safety, endurance, and self-care. 2. Left cerebellar CVA - Needs continued PT & OT & TORPEDOMAN'S MATE to maximize functional mobility, safety and self-care as well as communication needs. Risk Factor Modification: - Hypertension: Dietary and activity modifications, avoid hypotension and hypertension - Glycemic Control: HgBA1c = 9.9%, continue dietary and activity modifications, SSI, avoid hyperglycemia and hypoglycemia - Lipids: LDL is 119, continue dietary and activity modifications, continue statin - Smoking: Patient does not smoke - Alcohol: The patient does not drink alcohol - Antiplatelet: Aspirin 81 mg daily and Plavix 75 mg for now, will likely need to switch to single antiplatelet therapy after 4 to 6 weeks as the patient does not appear to have been taking any antiplatelets previously. - Cardioembolic Event: Recommend checking echocardiogram, especially since the patient was wearing a Holter monitor for palpitations prior to this admission. - Vascular: No hemodynamically significant stenosis on CT angiogram of the neck. Dysphagia: - Bedside swallow evaluation completed. -Continue regular solids with thin liquids diet. VTE Prophylaxis: -Continue SQ heparin Risk of Spasticity: - Continue ROM, positioning. -The patient does not have increased tone. Risk of Contractures: - Continue ROM, positioning. Risk of Constipation: - Continue dietary modifications and encourage fluid intake. - Bowel protocol: Colace 100 mg twice daily, MiraLAX 1 packet daily as needed, and Dulcolax suppository daily as needed. Risk of Neurogenic Bladder/UTI: - Monitor for retention, incontinence, UTI. 3. Diabetes mellitus type 2 with diabetic neuropathy - Poorly controlled with hemoglobin A1c of 9.9% - Continue carbohydrate controlled diet, Accu-Cheks, and sliding scale insulin per hospitalist medicine - The patient will likely require insulin therapy going forward 4. Hypertension - Continue multiple antihypertensives per hospitalist medicine 5. Disposition - Based on the patient's diagnosis, medical co-morbidities, and current functional status, she is a good candidate for acute inpatient rehabilitation as she would benefit from 3 hours per day of intensive therapies in at least 2 disciplines under the close medical supervision of a physician. The patient is expected to make significant gains in a relatively short period of time to the point that she can safely be discharged home with supervision and assistance from family. Insurance preauthorization is required and will be requested. Barring any unforeseen events or complications, there is a plan to admit the patient to acute inpatient rehabilitation at [facility] in the next 2 to 3 d ays. This case was discussed with the patient's acute care therapists, nurse on the floor, corporate event planner, and social service coordinator at [facility]. Thank you for allowing us to participate in the care of this patient. Please call with any questions. A total of 75 minutes was spent on [id number] communication with the patient and coordination of care.
[2018-11-24] MEDS: QUETIAPINE FUMARATE 100 MG TABLET PO SCH (21:24)
[2018-11-24] MEDS: ATORVASTATIN CALCIUM 40 MG TABLET PO SCH (21:24)
[2018-11-24] MEDS: TEMAZEPAM 15 MG CAPSULE PO PRN (21:29)
[2018-11-25] MEDS: ONDANSETRON HCL INJ/PF 4 MG/2 ML SDV IV PRN (04:01)
[2018-11-25] MEDS: HEPARIN SOD (PORCINE) 5,000 UNIT/ML 1 ML SYRINGE SUBCUT SCH ×3 (05:14→22:07)
[2018-11-25 05:23] LABS: ABSOLUTE BASOPHILS # (AUTO) 0.1 10^3/uL (0.0-0.2); ABSOLUTE EOSINOPHILS # (AUTO) 0.2 10^3/uL (0.0-0.6); ABSOLUTE LYMPHOCYTES (AUTO) 2.4 10^3/uL (0.5-4.7); ABSOLUTE MONOCYTES (AUTO) 0.8 10^3/uL (0.1-1.4); ABSOLUTE NEUT (AUTO) 4.1 10^3/uL (1.7-8.2); EOSINOPHILS % (AUTO) 2.4 % (0-6); HEMOGLOBIN 15.1 g/dL (12.0-15.5); LYMPHOCYTES % (AUTO) 32.2 % (13-45); MEAN CORPUSCULAR VOLUME 80 fl (80-97); MONOCYTES % (AUTO) 10.1 % (3-13); PLATELET COUNT 218 10^3/uL (150-450); RED BLOOD COUNT 5.38 10^6/uL (3.72-5.28); RED CELL DISTRIBUTION WIDTH 13.8 % (11.5-14.0); SEGMENTED NEUTROPHILS % (AUTO) 54.3 % (42-78); TOTAL CELLS COUNTED % (AUTO) 100 %; WHITE BLOOD COUNT 7.5 10^3/uL (4.0-10.5)
[2018-11-25 05:44] LABS: ANION GAP 11 (5-19); BLOOD UREA NITROGEN 25 mg/dL (7-20); CALCIUM 9.4 mg/dL (8.4-10.2); CARBON DIOXIDE 29 mmol/L (22-30); CHLORIDE 95 mmol/L (98-107); GLUCOSE 294 mg/dL (75-110); POTASSIUM 4.5 mmol/L (3.6-5.0); SODIUM 134.7 mmol/L (137-145)
[2018-11-25] MEDS: INSULIN LISPRO 100 UNIT/ML 3 ML VIAL SUBCUT SCH ×4 (08:10→22:07)
[2018-11-25] MEDS: OXYCODONE-ACETAMINOPHEN 5-325 MG TABLET PO PRN (08:11)
[2018-11-25] MEDS: INSULIN GLARGINE,HUM.REC.ANLOG 1,000 UNIT/10 ML VIAL SUBCUT SCH ×2 (09:03→22:07)
[2018-11-25] MEDS: CLOPIDOGREL BISULFATE 75 MG TABLET PO SCH (09:03)
[2018-11-25] MEDS: FAMOTIDINE 20 MG TABLET PO SCH ×2 (09:03→22:07)
[2018-11-25] MEDS: ASPIRIN 81 MG TABLET, CHEWABLE PO SCH (09:03)
[2018-11-25] MEDS: HYDROCHLOROTHIAZIDE 12.5 MG TABLET PO SCH (09:03)
[2018-11-25] MEDS: DULOXETINE HCL 30 MG CAPSULE.DR PO SCH (09:04)
[2018-11-25] MEDS: LOSARTAN POTASSIUM 50 MG TABLET PO SCH (09:04)
--- NOTE | 2018-11-25 10:12 | PDOC PROGRESS REPORT ---
Subjective Progress Note for:: 11/25/18 Subjective:: 58 year old female past medical history of left MCA stroke, hypertension, diabetes, diabetic neuropathy, hyperlipidemia, anxiety, insomnia, depression, presenting to ED complaining of loss of balance and left-sided numbness. 3 days ago patient visited ED complaining of vomiting and dizziness. And was sent home with some antiemetics. Nausea and vomiting has resolved since then. Today in the morning she felt nauseous again with global headache which started last night with occasional left arm heaviness since then. Patient is stating that she is fine at rest but when she tries to walk she feels like she is going to fall forward. Denies any falls. Denies any lightheadedness or vertigo. Patient had a Holter monitor placed 2 days ago which she removed stating that it was causing a rash. She was also started on Zithromax and Phenergan for recent sinus infection. In ED CT head and CTA head were negative for any acute stroke. Hospitalist was consulted for admission. On physical examination there was nystagmus on left lateral gaze which diminishes after 3 beats. [place]-Hallpike maneuver negative. Motor examination is WNL, DTRs 2+ bilaterally, decreased sensation on left lower and upper extremity. There is no pronator drift, however patient is unsteady gait. 11/23/[id number]-zosp-old female with previous history of left MCA stroke, diabetes, hypertension, hyperlipidemia came in with left-sided numbness and unsteady gait. MRI of the of the brain shows 8 mm focus of posterior diffuse lesion in the left cerebral peduncle. And he still complaining of left-sided weakness/slurred speech and unsteady gait. Physical therapy is working with the patient. Patient prefers to go home with home health. 11/24/[id number]-vdwk-old female with history of CVA admitted with complaints of left-sided weakness And slurred speech unsteady gait MRI shows a small ischemic infarct in the left cerebellar peduncle PT consult was requested OT consult was requested program planner is on board. Patient is still having the dizzy spells despite receiving meclizine and still has the unsteady gait. Physical therapy evaluated the patient this morning the recommendation is placement to skilled facility. Patient is too unsafe to go home with home health. I had a long talk with the patient and patient agreed to go to a prison facility. 11/25/[id number]-xiqd-old female admitted with a CVA MRI shows small ischemic infarct in the left cerebral peduncle she is still having the dizzy spells and unsteady gait. She got a bed in [facility] but her blood pressures on the softer side this morning 96/60 and she became slightly tachycardic to be safe. Plan is to keep her here another day most likely transfer her to the rehab facility tomorrow. No acute events in the last 24 hours. Afebrile. Reason For Visit: ACUTE ONSET CVA Physical Exam Vital Signs: Temp Pulse Resp BP Pulse Ox 97.8 F 96 18 116/63 92 11/25/18 07:34 11/25/18 07:34 11/25/18 07:34 11/25/18 07:34 11/25/18 07:34 Intake & Output 11/24/18 11/25/18 11/26/18 06:59 06:59 06:59 Intake Total 2408 1577 Output Total 600 Balance 1808 1577 Weight 74.9 kg 74 kg General appearance: PRESENT: no acute distress, well-developed Head exam: PRESENT: atraumatic Eye exam: PRESENT: PERRLA Teeth exam: PRESENT: poor dentation Neck exam: ABSENT: carotid bruit, JVD, lymphadenopathy, thyromegaly Respiratory exam: PRESENT: clear to auscultation gerardo. ABSENT: rales, rhonchi, wheezes Cardiovascular exam: PRESENT: RRR. ABSENT: diastolic murmur, rubs, systolic murmur GI/Abdominal exam: PRESENT: normal bowel sounds, soft. ABSENT: distended, guarding, mass, organolmegaly, rebound, tenderness Rectal exam: PRESENT: deferred Neurological exam: PRESENT: alert, awake, oriented to person, oriented to place, oriented to time, oriented to situation, CN II-XII grossly intact. ABSENT: motor sensory deficit Psychiatric exam: PRESENT: appropriate affect, normal mood. ABSENT: homicidal ideation, suicidal ideation Results Laboratory Results: 11/25/18 04:36 11/25/18 04:36 11/25/18 11/25/18 04:36 04:36 WBC 7.5 RBC 5.38 H Hgb 15.1 Hct 43.0 MCV 80 MCH 28.0 MCHC 35.0 RDW 13.8 Plt Count 218 Seg Neutrophils % 54.3 Lymphocytes % 32.2 Monocytes % 10.1 Eosinophils % 2.4 Basophils % 1.0 Absolute Neutrophils 4.1 Absolute Lymphocytes 2.4 Absolute Monocytes 0.8 Absolute Eosinophils 0.2 Absolute Basophils 0.1 Sodium 134.7 L Potassium 4.5 Chloride 95 L Carbon Dioxide 29 Anion Gap 11 BUN 25 H Creatinine 0.75 Est GFR ( Amer) > 60 Est GFR (Non-Af Amer) > 60 Glucose 294 H Calcium 9.4 11/22/18 10:12 Troponin I < 0.012 Impressions: Head CT 11/22/18 10:54 IMPRESSION: NORMAL BRAIN CT WITHOUT CONTRAST. EVIDENCE OF ACUTE STROKE: NO. Head CTA 11/22/18 10:54 IMPRESSION: NO CTA EVIDENCE OF STENOSIS OR ANEURYSM OF THE [place] OF [place]. Neck CTA 11/22/18 10:54 IMPRESSION: NORMAL CTA OF THE EXTRA-CRANIAL CAROTID AND VERTEBRAL ARTERIES. Extremely tortuous right carotid. Head MRI 11/22/18 13:40 IMPRESSION: 8 mm focus of restricted diffusion in the left cerebellar peduncle consistent with acute or sub-acute lacunar infarction. EVIDENCE OF ACUTE STROKE: YES. LEFT VERTEBROBASILAR. Assessment and Plan - Diagnosis (1) CVA (cerebral vascular accident) Qualifiers: CVA mechanism: unspecified Qualified Code(s): I63.9 - Cerebral infarction, unspecified Is this a current diagnosis for this admission?: Yes Plan: 11/23/2018-this elderly female with multiple medical problems came in with left- sided weakness and slurred speech and unsteady gait MRI of the brain found to have a small ischemic stroke in the left cerebellar peduncle. Started on aspirin, statins and Plavix today. She is also on Lovenox prophylactic dose. PT consult OT consult was requested speech evaluation was done no swallowing problems. Patient's prefers to go home with home health. 11/24/[id number]-wahr-old female admitted with new onset CVA. MRI shows small ischemic stroke in the left cerebellar peduncle. Patient agreed to go to prison facility for rehab. still Complaining of dizziness unsteady gait this morning. 11/25/[id number]-zlin-old female admitted with new onset CVA stroke core measures are implemented. She is going to go to prison facility or inpatient rehab tomorrow. Still complaining of dizzy spells and unsteady gait. On aspirin, statins and Plavix. She is also on Lovenox as a DVT prophylaxis. PT OT consult was done during the hospital stay. Swallowing studies are negative. (2) Loss of balance Is this a current diagnosis for this admission?: Yes (3) H/O ischemic left MCA stroke Is this a current diagnosis for this admission?: Yes (4) Diabetic neuropathy Qualifiers: Diabetes mellitus type: type 2 Diabetes mellitus complication detail: diabetic polyneuropathy Qualified Code(s): E11.42 - Type 2 diabetes mellitus with diabetic polyneuropathy Is this a current diagnosis for this admission?: Yes Plan: Continue duloxetine. Optimize diabetic control. Monitor for falls. 11/23/2018-patient has history of diabetes mellitus with diabetic neuropathy no complaints today. To continue duloxetine. 11/24/2018-patient has history of diabetic neuropathy no complaints this morning. 11/25/2018-patient has history of type 2 diabetes mellitus hemoglobin A1c is 9.9 and latest blood sugar is 282. Started on Lantus 10 units twice a day and to continue insulin sliding scale. (5) Insomnia Is this a current diagnosis for this admission?: No (6) Hypertension Qualifiers: Hypertension type: unspecified Qualified Code(s): I10 - Essential (primary) hypertension Is this a current diagnosis for this admission?: No Plan: 11/23/2018-patient has history of hypertension and blood pressure today is 148/87 losartan/hydrochlorothiazide was restarted today. 11/24/2018-blood pressure today is 122/72. Stable. Presently on losartan/hydrochlorothiazide. Plan is to continue the present management. 11/25/2018-patient is hypotensive this morning blood pressure is 96/60 plan is to decrease the Cozaar to 50/12.5 mg daily. And continue to closely monitor the blood pressures on a regular basis. - Time Time Spent with patient: 25-34 minutes Medications reviewed and adjusted accordingly: Yes Anticipated discharge: SNF, Acute Rehab
[2018-11-25] MEDS ORDERED: AZITHROMYCIN INJ 500 MG VIAL IV ONE (10:35)
[2018-11-25] MEDS ORDERED: AZITHROMYCIN 500 MG in DEXTROSE 5%-WATER 250 ML IV SCH (12:00)
[2018-11-25] MEDS: ATORVASTATIN CALCIUM 40 MG TABLET PO SCH (22:07)
[2018-11-25] MEDS: QUETIAPINE FUMARATE 100 MG TABLET PO SCH (22:08)
[2018-11-26] MEDS: HEPARIN SOD (PORCINE) 5,000 UNIT/ML 1 ML SYRINGE SUBCUT SCH (05:53)
[2018-11-26 06:19] LABS: ABSOLUTE BASOPHILS # (AUTO) 0.1 10^3/uL (0.0-0.2); ABSOLUTE EOSINOPHILS # (AUTO) 0.2 10^3/uL (0.0-0.6); ABSOLUTE LYMPHOCYTES (AUTO) 2.7 10^3/uL (0.5-4.7); ABSOLUTE MONOCYTES (AUTO) 0.7 10^3/uL (0.1-1.4); ABSOLUTE NEUT (AUTO) 3.2 10^3/uL (1.7-8.2); BASOPHILS % (AUTO) 0.8 % (0-2); EOSINOPHILS % (AUTO) 3.2 % (0-6); HEMATOCRIT 43.9 % (36.0-47.0); HEMOGLOBIN 15.4 g/dL (12.0-15.5); LYMPHOCYTES % (AUTO) 38.9 % (13-45); MEAN CORPUSCULAR HEMOGLOBIN 27.8 pg (27.0-33.4); MEAN CORPUSCULAR HGB CONC 35.1 g/dL (32.0-36.0); MEAN CORPUSCULAR VOLUME 79 fl (80-97); MONOCYTES % (AUTO) 10.3 % (3-13); PLATELET COUNT 213 10^3/uL (150-450); RED BLOOD COUNT 5.55 10^6/uL (3.72-5.28); RED CELL DISTRIBUTION WIDTH 13.7 % (11.5-14.0); SEGMENTED NEUTROPHILS % (AUTO) 46.8 % (42-78); TOTAL CELLS COUNTED % (AUTO) 100 %; WHITE BLOOD COUNT 6.9 10^3/uL (4.0-10.5)
[2018-11-26 06:31] LABS: ALANINE AMINOTRANSFERASE 35 U/L (9-52); ALBUMIN 4.3 g/dL (3.5-5.0); ALKALINE PHOSPHATASE 75 U/L (38-126); ANION GAP 10 (5-19); ASPARTATE AMINO TRANSFERASE 28 U/L (14-36); BILIRUBIN,DIRECT 0.2 mg/dL (0.0-0.4); BILIRUBIN,TOTAL 0.8 mg/dL (0.2-1.3); BLOOD UREA NITROGEN 20 mg/dL (7-20); CALCIUM 9.7 mg/dL (8.4-10.2); CARBON DIOXIDE 32 mmol/L (22-30); CHLORIDE 94 mmol/L (98-107); GLUCOSE 253 mg/dL (75-110); POTASSIUM 5.2 mmol/L (3.6-5.0); SODIUM 135.9 mmol/L (137-145); TOTAL PROTEIN 6.8 g/dL (6.3-8.2)
[2018-11-26] MEDS: INSULIN LISPRO 100 UNIT/ML 3 ML VIAL SUBCUT SCH (07:50)
[2018-11-26] MEDS: MECLIZINE HCL 12.5 MG TABLET PO PRN (08:13)
[2018-11-26 08:23] VITALS: BP 127/75
[2018-11-26] MEDS ORDERED: SODIUM POLYSTYRENE SULFONATE 15 GM/60 ML PO ONE (09:00)
[2018-11-26] MEDS: FAMOTIDINE 20 MG TABLET PO SCH (09:03)
[2018-11-26] MEDS: CLOPIDOGREL BISULFATE 75 MG TABLET PO SCH (09:03)
[2018-11-26] MEDS: ASPIRIN 81 MG TABLET, CHEWABLE PO SCH (09:03)
[2018-11-26] MEDS: LOSARTAN POTASSIUM 50 MG TABLET PO SCH (09:04)
[2018-11-26] MEDS: HYDROCHLOROTHIAZIDE 12.5 MG TABLET PO SCH (09:04)
[2018-11-26] MEDS: DULOXETINE HCL 30 MG CAPSULE.DR PO SCH (09:06)
--- NOTE | 2018-11-26 09:26 | PDOC TRANSFER SUMMARY ---
General Admission Date/PCP: 11/23/18 13:08 - Transfer Diagnosis (1) CVA (cerebral vascular accident) Is this a current diagnosis for this admission?: Yes Diagnosis Summary: 11/23/2018-this elderly female with multiple medical problems came in with left- sided weakness and slurred speech and unsteady gait MRI of the brain found to have a small ischemic stroke in the left cerebellar peduncle. Started on aspirin, statins and Plavix today. She is also on Lovenox prophylactic dose. PT consult OT consult was requested speech evaluation was done no swallowing problems. Patient's prefers to go home with home health. 11/24/[id number]-nqss-old female admitted with new onset CVA. MRI shows small ischemic stroke in the left cerebellar peduncle. Patient agreed to go to prison facility for rehab. still Complaining of dizziness unsteady gait this morning. 11/25/[id number]-ogwp-old female admitted with new onset CVA stroke core measures are implemented. She is going to go to prison facility or inpatient rehab tomorrow. Still complaining of dizzy spells and unsteady gait. On aspirin, statins and Plavix. She is also on Lovenox as a DVT prophylaxis. PT OT consult was done during the hospital stay. Swallowing studies are negative. 11/26/2018-no acute events in the last 24 hours. MRI of the brain shows a small left cerebellar peduncle ischemic stroke. Still complaining of unsteady gait and dizzy spells she is going to [facility] for continue of the rehab. (2) Loss of balance Is this a current diagnosis for this admission?: Yes Diagnosis Summary: 11/26/2018-patient came in with complaints of loss of balance MRI of the brain shows left cerebral peduncle ischemia. Patient is going to [facility] for rehab. (3) H/O ischemic left MCA stroke Is this a current diagnosis for this admission?: Yes Diagnosis Summary: 11/26/2018-patient has a previous history of ischemia involving the left MCA. This time admitted with dizziness unsteady gait/left-sided weakness slurred speech found to have a small 8 mm ischemia in the left cerebral peduncle. (4) Diabetic neuropathy Is this a current diagnosis for this admission?: Yes Diagnosis Summary: Continue duloxetine. Optimize diabetic control. Monitor for falls. 11/23/2018-patient has history of diabetes mellitus with diabetic neuropathy no complaints today. To continue duloxetine. 11/24/2018-patient has history of diabetic neuropathy no complaints this morning. 11/25/2018-patient has history of type 2 diabetes mellitus hemoglobin A1c is 9.9 and latest blood sugar is 282. Started on Lantus 10 units twice a day and to continue insulin sliding scale. 11/26/2018-patient has history of type 2 diabetes mellitus hemoglobin A1c is 9.9. Latest blood sugar is 253. She was started Lantus 10 units twice a day yesterday and insulin sliding scale plan was increased her Lantus to 15 units twice a day from today. (5) Insomnia Is this a current diagnosis for this admission?: No (6) Hypertension Is this a current diagnosis for this admission?: No Diagnosis Summary: 11/23/2018-patient has history of hypertension and blood pressure today is 148/87 losartan/hydrochlorothiazide was restarted today. 11/24/2018-blood pressure today is 122/72. Stable. Presently on losartan/hydrochlorothiazide. Plan is to continue the present management. 11/25/2018-patient is hypotensive this morning blood pressure is 96/60 plan is to decrease the Cozaar to 50/12.5 mg daily. And continue to closely monitor the blood pressures on a regular basis. 11/26/2018-patient blood pressure today is 120/66. Presently on Cozaar 50/12.5 mg p.o. daily plan is to continue the medication at the rehab facility. - Transfer Medications Home Medications: Omeprazole 40 mg PO DAILY 04/02/18 Azithromycin [Zithromax 250 mg Tablet] 250 mg PO DAILY MDD LAST DOSE 11/2311/22/18 Duloxetine HCl [Cymbalta 30 mg Capsule.dr] 60 mg PO DAILY 11/22/18 Insulin Degludec [Tresiba Flextouch U-100] 30 unit SQ DAILY 11/22/18 Quetiapine Fumarate [Seroquel 100 mg Tablet] 100 mg PO DAILY 11/22/18 Transfer Medications: Current Medications Acetaminophen (Tylenol 325 Mg Tablet) 325 mg PO Q4HP PRN PRN Reason: FOR PAIN SCALE 1-2 Stop: 12/22/18 13:16 Last Admin: 11/25/18 05:13 Dose: 325 mg Documented by: Albuterol/Ipratropium (Duoneb 3 Ml Ampul) 3 ml NEB RTQ6HP PRN PRN Reason: SHORTNESS OF BREATH Stop: 12/22/18 13:16 Aspirin (Aspirin 81 Mg Chewable Tablet) 81 mg PO DAILY [facility] Stop: 12/23/18 09:59 Last Admin: 11/26/18 09:03 Dose: 81 mg Documented by: Atorvastatin Calcium (Lipitor 40 Mg Tablet) 40 mg PO QHS [facility] Stop: 12/22/18 21:59 Last Admin: 11/25/18 22:07 Dose: 40 mg Documented by: Clopidogrel Bisulfate (Plavix 75 Mg Tablet) 75 mg PO DAILY [facility] Stop: 12/23/18 11:29 Last Admin: 11/26/18 09:03 Dose: 75 mg Documented by: Dextrose (Dextrose Inj 50% Syringe (25 Gm/50 Ml)) 25 gm IV PRN PRN; Protocol PRN Reason: PER PROTOCOL Stop: 12/22/18 13:25 Dextrose (Dextrose Inj 50% Syringe (25 Gm/50 Ml)) 12.5 gm IV PRN PRN; Protocol PRN Reason: FOR BG 50-69 IN ALERT PATIENT Stop: 12/22/18 13:25 Duloxetine HCl (Cymbalta 30 Mg Capsule.Dr) 60 mg PO DAILY [facility] Stop: 12/22/18 13:29 Last Admin: 11/26/18 09:06 Dose: 60 mg Documented by: Famotidine (Pepcid 20 Mg Tablet) 20 mg PO Q12 [facility] Stop: 12/22/18 21:59 Last Admin: 11/26/18 09:03 Dose: 20 mg Documented by: Glucagon (Glucagen Inj 1 Mg Vial) 1 mg IM PRN PRN; Protocol PRN Reason: Evaluate for BG < 70 Stop: 12/22/18 13:25 Glucose (Glutose 40% Gel 15 Gm Tube) 15 gm PO PRN PRN; Protocol PRN Reason: FOR BG 50-69 IN ALERT PATIENT Stop: 12/22/18 13:25 Glucose (Glutose 40% Gel 15 Gm Tube) 30 gm PO PRN PRN; Protocol PRN Reason: FOR BG < 50 IN ALERT PATIENT Stop: 12/22/18 13:25 Heparin Sodium (Porcine) (Heparin Inj 5,000 Units/Ml 1 Ml Syringe) 5,000 unit SUBCUT Q8 [facility] Stop: 12/22/18 13:59 Last Admin: 11/26/18 05:53 Dose: 5,000 unit Documented by: Hydralazine HCl (Apresoline Inj/Pf 20 Mg/1 Ml Sdv) 10 mg IV Q3HP PRN PRN Reason: Give For Sbp > [200] Stop: 12/22/18 13:28 Hydrochlorothiazide (Hydrodiuril 12.5 Mg Tablet) 12.5 mg PO DAILY [facility] Stop: 12/23/18 12:14 Last Admin: 11/26/18 09:04 Dose: 12.5 mg Documented by: Azithromycin 500 mg/ Dextrose 250 mls @ 250 mls/hr IV NOON [facility] Stop: 12/02/18 11:59 Last Infusion: 11/25/18 12:48 Dose: Infused Documented by: Insulin Glargine (Lantus Insulin 100 Unit/1 Ml 10 Ml) 15 unit SUBCUT Q12 [facility] Stop: 12/26/18 09:59 Insulin Human Lispro (Humalog Insulin 100 Unit/1 Ml 3 Ml Vial) 0 - [address] [facility]; Protocol Stop: 12/22/18 15:59 Last Admin: 11/26/18 07:50 Dose: 6 unit Documented by: Losartan Potassium (Cozaar 50 Mg Tablet) 50 mg PO DAILY [facility] Stop: 12/25/18 09:59 Last Admin: 11/26/18 09:04 Dose: 50 mg Documented by: Meclizine HCl (Antivert 12.5 Mg Tablet) 12.5 mg PO Q8HP PRN PRN Reason: DIZZINESS Stop: 12/22/18 17:01 Last Admin: 11/26/18 08:13 Dose: 12.5 mg Documented by: Ondansetron HCl (Zofran Inj/Pf 4 Mg/2 Ml Sdv) 4 mg IV Q4HP PRN PRN Reason: FOR NAUSEA/VOMITING Stop: 12/22/18 13:16 Last Admin: 11/25/18 04:01 Dose: 4 mg Documented by: Oxycodone/Acetaminophen (Percocet 5-325 Mg Tablet) 1 tab PO Q4HP PRN PRN Reason: FOR PAIN SCALE 3-4 Stop: 11/29/18 13:16 Last Admin: 11/25/18 08:11 Dose: 1 tab Documented by: Promethazine HCl (Phenergan Inj 25 Mg/1 Ml Vial) 6.25 mg IV Q4HP PRN PRN Reason: FOR NAUSEA/VOMITING Stop: 12/22/18 13:16 Quetiapine Fumarate (Seroquel 100 Mg Tablet) 100 mg PO QHS [facility] Stop: 12/22/18 21:59 Last Admin: 11/25/18 22:08 Dose: 100 mg Documented by: Temazepam (Restoril 15 Mg Capsule) 15 mg PO HSP PRN PRN Reason: SLEEP OR INSOMNIA Stop: 11/29/18 13:16 Last Admin: 11/24/18 21:29 Dose: 15 mg Documented by: - Allergies Allergies/Adverse Reactions: Penicillins Allergy (Unknown, Verified 11/22/18 09:49) cephalexin monohydrate [From Keflex] Allergy (Verified 11/22/18 09:49) ciprofloxacin [From Cipro] Allergy (Verified 11/22/18 09:49) codeine Allergy (Verified 11/22/18 09:49) Iodinated Contrast- Oral and IV Dye [IV Dye, Iodine Containing] Allergy (Verified 11/22/18 09:49) latex [Latex] Allergy (Verified 11/22/18 09:49) metformin Allergy (Verified 11/22/18 09:49) nitrofurantoin macrocrystalline [From Macrodantin] Allergy (Verified 11/22/18 09:49) penicillin G Allergy (Verified 11/22/18 09:49) Sulfa (Sulfonamide Antibiotics) Allergy (Verified 11/22/18 09:49) tetracycline [Tetracycline] Allergy (Verified 11/22/18 09:49) nitroglycerin [From Nitrostat] Adverse Reaction (Verified 11/22/18 09:49) - Diet/Activity Discharge Diet: Diabetic Physical Exam Vital Signs: Temp Pulse Resp BP Pulse Ox 98.1 F 85 18 127/75 H 94 11/26/18 07:43 11/26/18 07:43 11/26/18 07:43 11/26/18 07:43 11/26/18 07:43 Intake & Output 11/25/18 11/26/18 11/27/18 06:59 06:59 06:59 Intake Total 1577 990 Balance 1577 990 Weight 74 kg 73 kg General appearance: PRESENT: no acute distress Head exam: PRESENT: atraumatic Eye exam: PRESENT: PERRLA Mouth exam: PRESENT: moist, tongue midline Teeth exam: PRESENT: poor dentation Neck exam: ABSENT: carotid bruit, JVD, lymphadenopathy, thyromegaly Respiratory exam: PRESENT: decreased breath sounds Cardiovascular exam: PRESENT: RRR. ABSENT: diastolic murmur, rubs, systolic murmur GI/Abdominal exam: PRESENT: normal bowel sounds, soft. ABSENT: distended, guarding, mass, organolmegaly, rebound, tenderness Rectal exam: PRESENT: deferred Extremities exam: PRESENT: full ROM. ABSENT: calf tenderness, clubbing, pedal edema Neurological exam: PRESENT: alert, awake, oriented to person, oriented to place, oriented to time, oriented to situation, CN II-XII grossly intact. ABSENT: motor sensory deficit Psychiatric exam: PRESENT: appropriate affect, normal mood. ABSENT: homicidal ideation, suicidal ideation Results Laboratory Results: 11/26/18 05:22 11/26/18 05:22 11/26/18 11/26/18 05:22 05:22 WBC 6.9 RBC 5.55 H Hgb 15.4 Hct 43.9 MCV 79 L MCH 27.8 MCHC 35.1 RDW 13.7 Plt Count 213 Seg Neutrophils % 46.8 Lymphocytes % 38.9 Monocytes % 10.3 Eosinophils % 3.2 Basophils % 0.8 Absolute Neutrophils 3.2 Absolute Lymphocytes 2.7 Absolute Monocytes 0.7 Absolute Eosinophils 0.2 Absolute Basophils 0.1 Sodium 135.9 L Potassium 5.2 H Chloride 94 L Carbon Dioxide 32 H Anion Gap 10 BUN 20 Creatinine 0.72 Est GFR ( Amer) > 60 Est GFR (Non-Af Amer) > 60 Glucose 253 H Calcium 9.7 Magnesium 2.0 Total Bilirubin 0.8 AST 28 ALT 35 Alkaline Phosphatase 75 Total Protein 6.8 Albumin 4.3 11/22/18 10:12 Troponin I < 0.012 Impressions: Head CT 11/22/18 10:54 IMPRESSION: NORMAL BRAIN CT WITHOUT CONTRAST. EVIDENCE OF ACUTE STROKE: NO. Head CTA 11/22/18 10:54 IMPRESSION: NO CTA EVIDENCE OF STENOSIS OR ANEURYSM OF THE [place]. Neck CTA 11/22/18 10:54 IMPRESSION: NORMAL CTA OF THE EXTRA-CRANIAL CAROTID AND VERTEBRAL ARTERIES. Extremely tortuous right carotid. Head MRI 11/22/18 13:40 IMPRESSION: 8 mm focus of restricted diffusion in the left cerebellar peduncle consistent with acute or sub-acute lacunar infarction. EVIDENCE OF ACUTE STROKE: YES. LEFT VERTEBROBASILAR. Plan Time Spent: Greater than 30 Minutes
[2018-11-26] MEDS ORDERED: INSULIN GLARGINE,HUM.REC.ANLOG 1,000 UNIT/10 ML VIAL SUBCUT SCH (10:00)
== END 2018-11-26 10:15 | disposition short-term general hospital (02) | DRG 65 ==
LOC: ER 09:48 → INTOOBSV 12:33 → EH 12:33 → 3S 15:10 → OBSVTOIN 11-23 13:08
PROVIDERS: ADMIT Internal Medicine; ATTEND Internal Medicine
DX: I63.89 Other cerebral infarction (principal); G81.94 Hemiplegia, unspecified affecting left nondominant side; I10 Essential (primary) hypertension; Z79.4 Long term (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 of insulin; E78.5 Hyperlipidemia, unspecified; F41.9 Anxiety disorder, unspecified; F32.9 Major depressive disorder, single episode, unspecified; Z88.0 Allergy status to penicillin; Z88.1 Allergy status to other antibiotic agents; Z88.2 Allergy status to sulfonamides; Z91.041 Radiographic dye allergy status; Z91.040 Latex allergy status; J45.909 Unspecified asthma, uncomplicated; G43.909 Migraine, unspecified, not intractable, without status migrainosus; M19.90 Unspecified osteoarthritis, unspecified site; M79.7 Fibromyalgia; R29.703 NIHSS score 3; G47.30 Sleep apnea, unspecified; R47.81 Slurred speech; E11.65 Type 2 diabetes mellitus with hyperglycemia; R27.0 Ataxia, unspecified
CPT/HCPCS: 36415; 70450; 70496; 70498; 70551; 80048; 80053; 80061; 80307; 81001; 82962; 83036; 83735; 84484; 85025; 85610; 85730; 87086; 93005; 93010; 96361; 96374; 99285; G0378; J0456; J1644; J1815; J2405; J3490; J7030; J7060

== ENCOUNTER 2019-02-02 01:27 | Observation (INO) | payer OTHER ==
--- NOTE | 2019-02-02 01:53 | ER Document Report ---
ED General - General Chief Complaint: S/S of Possible Stroke Stated Complaint: HEART RACING, DIZZY Time Seen by Provider: 02/02/19 01:46 Primary Care Provider: JACK SÁNCHEZ DO [Primary Care Provider] - Follow up as needed Information source: Patient TRAVEL OUTSIDE OF THE [place] IN LAST 30 DAYS: No - HPI Notes: Patient states that approximately 10 AM this morning she noticed that she was off balance and dizzy more than usual. She states that she had a stroke approximately 2 months ago that is caused her to have persistent left-sided weakness and dizziness. However today she feels that the left-sided weakness and dizziness are worse than usual. She also states that her speech has been slurred this evening. She states she is also had a mild headache. This headache radiates across her head. It is throbbing. It is worse with movement and better with rest. She denies any recent trauma or falls. No nausea vomiting or diarrhea. No fevers. - Related Data Allergies/Adverse Reactions: Penicillins Allergy (Unknown, Verified 11/22/18 09:49) cephalexin monohydrate [From Keflex] Allergy (Verified 11/22/18 09:49) ciprofloxacin [From Cipro] Allergy (Verified 11/22/18 09:49) codeine Allergy (Verified 11/22/18 09:49) Iodinated Contrast Media [IV Dye, Iodine Containing] Allergy (Verified 11/22/18 09:49) latex [Latex] Allergy (Verified 11/22/18 09:49) metformin Allergy (Verified 11/22/18 09:49) nitrofurantoin macrocrystalline [From Macrodantin] Allergy (Verified 11/22/18 09:49) penicillin G Allergy (Verified 11/22/18 09:49) Sulfa (Sulfonamide Antibiotics) Allergy (Verified 11/22/18 09:49) tetracycline [Tetracycline] Allergy (Verified 11/22/18 09:49) nitroglycerin [From Nitrostat] Adverse Reaction (Verified 11/22/18 09:49) Past Medical History - General Information source: Patient - Social History Smoking Status: Never Smoker Frequency of alcohol use: None Drug Abuse: None Family History: Reviewed & Not Pertinent, Arthritis, CVA, DM, Hyperlipidemia, Hypertension, Malignancy, Thyroid Disfunction - Past Medical History Cardiac Medical History: Reports: Hx Hypercholesterolemia, Hx Hypertension Pulmonary Medical History: Reports: Hx Asthma Neurological Medical History: Reports: Hx Cerebrovascular Accident, Hx Migraine Endocrine Medical History: Reports: Hx Diabetes Mellitus Type 1, Hx Diabetes Mellitus Type 2. Denies: Hx Hyperthyroidism, Hx Hypothyroidism Renal/ Medical History: Denies: Hx Peritoneal Dialysis Malignancy Medical History: Reports: Hx Cervical Cancer GI Medical History: Reports: Hx Gastroesophageal Reflux Disease. Denies: Hx Cirrhosis, Hx Hepatitis Musculoskeletal Medical History: Reports Hx Arthritis, Reports Hx Fibromyalgia, Reports Hx Musculoskeletal Deformity, Reports Hx Musculoskeletal Trauma Psychiatric Medical History: Reports: Hx Anxiety, Hx Depression Traumatic Medical History: Reports: Hx Fractures - Facial fractures bilateral toes elbow and left knee Infectious Medical History: Denies: Hx Hepatitis Past Surgical History: Reports: Hx Abdominal Surgery - hernia, Hx Section - 2, Hx Cholecystectomy, Hx Hysterectomy, Hx Orthopedic Surgery - bilateral toes and elbows left knee twice, Hx Tubal Ligation, Other - Ventral hernia and pseudocyst removal. Denies: Hx Appendectomy - Immunizations Immunizations up to date: Yes Hx Diphtheria, Pertussis, Tetanus Vaccination: Yes Review of Systems - Review of Systems Constitutional: denies: Chills, Fever Cardiovascular: Palpitations. denies: Chest pain Respiratory: denies: Cough, Short of breath Neurological/Psychological: Weakness, Gait changes -: Yes All other systems reviewed and negative Physical Exam - Vital signs Vitals: Pulse Resp BP Pulse Ox 95 14 151/81 H 96 02/02/19 01:32 02/02/19 01:32 02/02/19 01:32 02/02/19 01:32 Interpretation: Normal - General General appearance: Appears well, Alert - HEENT Head: Normocephalic, Atraumatic Eyes: Normal Pupils: PERRL - Respiratory Respiratory status: No respiratory distress Chest status: Nontender Breath sounds: Normal Chest palpation: Normal - Cardiovascular Rhythm: Regular Heart sounds: Normal auscultation Murmur: No - Abdominal Inspection: Normal Distension: No distension Bowel sounds: Normal Tenderness: Nontender Organomegaly: No organomegaly - Back Back: Normal, Nontender - Extremities General upper extremity: Normal inspection, Nontender, Normal color, Normal ROM, Normal temperature General lower extremity: Normal inspection, Nontender, Normal color, Normal ROM, Normal temperature, Normal weight bearing. 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 No: Pronator drift Sensory: Normal - Psychological Associated symptoms: Normal affect, Normal mood - Skin Skin Temperature: Warm Skin Moisture: Dry Skin Color: Normal Course - Re-evaluation Re-evalutation: 02/02/19 02:54 Patient reevaluated just now. No stiff can change from presentation and her neuro status. Head CT without contrast shows no evidence of new pathology. At this time a CTA of the head and neck is pending. I have discussed the care with the hospitalist patient will be admitted on telemetry. - Vital Signs Vital signs: Temp Pulse Resp BP Pulse Ox 98.1 F 95 22 H 127/76 H 95 02/02/19 01:47 02/02/19 01:32 02/02/19 02:02 02/02/19 02:02 02/02/19 02:02 - Laboratory Result Diagrams: 02/02/19 01:43 02/02/19 01:43 Laboratory results interpreted by me: 02/02/19 01:43 Glucose 354 H - Diagnostic Test Radiology reviewed: Image reviewed, Reports reviewed Radiology results interpreted by me: 02/02/19 02:53 Chest X-Ray 02/02/19 01:46 IMPRESSION: No active disease. Head CT 02/02/19 01:49 IMPRESSION: No acute intracranial abnormality TECHNICAL DOCUMENTATION: Quality ID # 436: Final reports with documentation of one or more dose reduction techniques (e.g., Automated exposure control, adjustment of the mA and/or kV according to patient size, use of iterative reconstruction technique) copyright 2011 [employer]- All Rights Reserved - EKG Interpretation by Tx EKG shows normal: Sinus rhythm Rate: Normal - 98 Rhythm: NSR Deep [place]/QRS: No: RBBB, LBBB, IVCD Discharge - Discharge Clinical Impression: Dysarthria, Dizziness, Left-sided muscle weakness Condition: Serious Disposition: ADMITTED OBSERVATION Admitting Provider: Joe (Hospitalist) Unit Admitted: Telemetry Referrals: JACK SÁNCHEZ DO [Primary Care Provider] - Follow up as needed
[2019-02-02 02:10] LABS: ABSOLUTE BASOPHILS # (AUTO) 0.1 10^3/uL (0.0-0.2); ABSOLUTE EOSINOPHILS # (AUTO) 0.2 10^3/uL (0.0-0.6); ABSOLUTE LYMPHOCYTES (AUTO) 2.3 10^3/uL (0.5-4.7); ABSOLUTE MONOCYTES (AUTO) 0.5 10^3/uL (0.1-1.4); ABSOLUTE NEUT (AUTO) 2.3 10^3/uL (1.7-8.2); BASOPHILS % (AUTO) 1.1 % (0-2); EOSINOPHILS % (AUTO) 3.3 % (0-6); LYMPHOCYTES % (AUTO) 42.7 % (13-45); MEAN CORPUSCULAR HEMOGLOBIN 28.5 pg (27.0-33.4); MEAN CORPUSCULAR VOLUME 82 fl (80-97); MONOCYTES % (AUTO) 8.9 % (3-13); PLATELET COUNT 231 10^3/uL (150-450); RED CELL DISTRIBUTION WIDTH 13.9 % (11.5-14.0); TOTAL CELLS COUNTED % (AUTO) 100 %; WHITE BLOOD COUNT 5.3 10^3/uL (4.0-10.5)
[2019-02-02 02:25] LABS: ALBUMIN 4.5 g/dL (3.5-5.0); ALKALINE PHOSPHATASE 77 U/L (38-126); ANION GAP 10 (5-19); ASPARTATE AMINO TRANSFERASE 19 U/L (14-36); BILIRUBIN,DIRECT 0.3 mg/dL (0.0-0.4); BILIRUBIN,TOTAL 0.5 mg/dL (0.2-1.3); BLOOD UREA NITROGEN 14 mg/dL (7-20); CARBON DIOXIDE 29 mmol/L (22-30); CHLORIDE 99 mmol/L (98-107); GLUCOSE 354 mg/dL (75-110); POTASSIUM 3.8 mmol/L (3.6-5.0); TOTAL PROTEIN 7.3 g/dL (6.3-8.2)
--- NOTE | 2019-02-02 02:35 | RADIOLOGY REPORT (SQ) ---
Chest single view on 02/02/2019 at 2:05 AM CLINICAL INDICATION: Dizziness COMPARISON: 09/14/2018 FINDINGS: The lungs are clear. A few overlying wires are noted. Mild vascular calcification is noted in the aorta. Cardiac, hilar and mediastinal contours are within normal limits. Pulmonary vascularity is within normal limits. No bony abnormality is noted. IMPRESSION: No active disease.
--- NOTE | 2019-02-02 02:35 | RADIOLOGY REPORT (SQ) ---
EXAM DESCRIPTION: CT HEAD WITHOUT IV CONTRAST COMPLETED DATE/TME: 02/02/2019 01:49 CLINICAL HISTORY: 59 years, Female, dizzy COMPARISON: 11/22/2018 CT TECHNIQUE: 196 Images stored on PACS. All CT scanners at this facility use dose modulation, iterative reconstruction, and/or weight based dosing when appropriate to reduce radiation dose to as low as reasonably achievable (ALARA). [facility]: Dose Right [facility]: CareDose [facility]: Dose Right [facility]: Teradose 4D [facility]: [employer] LIMITATIONS: None. FINDINGS: The globes are intact. Paranasal sinuses and mastoid air cells are unremarkable. No displaced or depressed skull fracture. No intra or extra-axial hemorrhage. CT is limited for evaluation of acute infarct. No CT evidence for large or territorial acute infarct. No mass or midline shift IMPRESSION: No acute intracranial abnormality TECHNICAL DOCUMENTATION: Quality ID # 436: Final reports with documentation of one or more dose reduction techniques (e.g., Automated exposure control, adjustment of the mA and/or kV according to patient size, use of iterative reconstruction technique) copyright 2011 [employer]- All Rights Reserved
[2019-02-02 02:58] LABS: APPEARANCE,URINE CLEAR; BILIRUBIN,URINE NEGATIVE (NEGATIVE); COLOR,URINE STRAW; GLUCOSE, URINE >=500 mg/dL (NEGATIVE); KETONES,URINE NEGATIVE (NEGATIVE); LEUKOCYTE ESTERASE,URINE NEGATIVE (NEGATIVE); NITRITE,URINE NEGATIVE (NEGATIVE); PROTEIN,URINE NEGATIVE (NEGATIVE); URINE SPECIFIC GRAVITY 1.028
[2019-02-02] MEDS ORDERED: MAGNESIUM HYDROXIDE SUSP 30 ML UDCUP PO PRN (03:07)
[2019-02-02] MEDS ORDERED: DOCUSATE SODIUM 100 MG CAPSULE PO PRN (03:07)
[2019-02-02] MEDS ORDERED: ACETAMINOPHEN 325 MG TABLET PO PRN (03:07)
[2019-02-02] MEDS ORDERED: TRAMADOL HCL 50 MG TABLET PO ONE (03:09)
[2019-02-02] MEDS ORDERED: ASPIRIN 81 MG TABLET, CHEWABLE PO ONE (03:10)
[2019-02-02] MEDS ORDERED: DEXTROSE 40% GEL 15 GM TUBE PO PRN ×2 (03:11)
[2019-02-02] MEDS ORDERED: GLUCAGON,HUMAN RECOMB 1 MG INJ IM PRN (03:11)
[2019-02-02] MEDS ORDERED: DEXTROSE 50%-WATER 25 GM/50 ML DISP.SYRIN IV PRN ×2 (03:11)
[2019-02-02] MEDS ORDERED: ATORVASTATIN CALCIUM 40 MG TABLET PO ONE (03:30)
--- NOTE | 2019-02-02 03:47 | RADIOLOGY REPORT (SQ) ---
EXAM DESCRIPTION: CT NECK ANGIOGRAPHY WITHOUT THEN WITH IV CONTRAST, CT HEAD ANGIOGRAPHY WITHOUT THEN WITH IV CONTRAST COMPLETED DATE/TME: 02/02/2019 01:49 CLINICAL HISTORY: 59 years, Female, dizzy. CREAT 0.59 COMPARISON: 11/22/2018 CTA TECHNIQUE: 598 Images stored on PACS. All CT scanners at this facility use dose modulation, iterative reconstruction, and/or weight based dosing when appropriate to reduce radiation dose to as low as reasonably achievable (ALARA). Axial CTA images with coronal and sagittal MIPS [facility]: Dose Right [facility]: CareDose [facility]: Dose Right [facility]: Teradose 4D [facility]: [employer] LIMITATIONS: None. FINDINGS: CTA neck: The origins of the great vessels appear patent from the arch of the aorta. The origins and remaining cervical portions of the vertebral arteries are patent and codominant bilaterally. Moderate atheromatous change of the arch of the aorta. The bilateral common carotid arteries are patent. Minimal atheromatous change at the origin of the right internal carotid artery without measurable stenosis. The origins and remaining cervical portions of the left ICA is widely patent. CTA brain: The vertebral basilar system is unremarkable. Negative for basilar tip aneurysm. The petrous and remaining intracranial portions of the internal carotid arteries are patent bilaterally. No CTA evidence for measurable stenosis, vascular encasement, or displacement. No CTA evidence for aneurysm or arteriovenous malformation. IMPRESSION: No measurable areas of stenosis in the head or neck. TECHNICAL DOCUMENTATION: Quality ID # 436: Final reports with documentation of one or more dose reduction techniques (e.g., Automated exposure control, adjustment of the mA and/or kV according to patient size, use of iterative reconstruction technique) copyright 2011 [employer]- All Rights Reserved
--- NOTE | 2019-02-02 03:47 | RADIOLOGY REPORT (SQ) ---
EXAM DESCRIPTION: CT NECK ANGIOGRAPHY WITHOUT THEN WITH IV CONTRAST, CT HEAD ANGIOGRAPHY WITHOUT THEN WITH IV CONTRAST COMPLETED DATE/TME: 02/02/2019 01:49 CLINICAL HISTORY: 59 years, Female, dizzy. CREAT 0.59 COMPARISON: 11/22/2018 CTA TECHNIQUE: 598 Images stored on PACS. All CT scanners at this facility use dose modulation, iterative reconstruction, and/or weight based dosing when appropriate to reduce radiation dose to as low as reasonably achievable (ALARA). Axial CTA images with coronal and sagittal MIPS [facility]: Dose Right [facility]: CareDose [facility]: Dose Right [facility]: Teradose 4D [facility]: [employer] LIMITATIONS: None. FINDINGS: CTA neck: The origins of the great vessels appear patent from the arch of the aorta. The origins and remaining cervical portions of the vertebral arteries are patent and codominant bilaterally. Moderate atheromatous change of the arch of the aorta. The bilateral common carotid arteries are patent. Minimal atheromatous change at the origin of the right internal carotid artery without measurable stenosis. The origins and remaining cervical portions of the left ICA is widely patent. CTA brain: The vertebral basilar system is unremarkable. Negative for basilar tip aneurysm. The petrous and remaining intracranial portions of the internal carotid arteries are patent bilaterally. No CTA evidence for measurable stenosis, vascular encasement, or displacement. No CTA evidence for aneurysm or arteriovenous malformation. IMPRESSION: No measurable areas of stenosis in the head or neck. TECHNICAL DOCUMENTATION: Quality ID # 436: Final reports with documentation of one or more dose reduction techniques (e.g., Automated exposure control, adjustment of the mA and/or kV according to patient size, use of iterative reconstruction technique) copyright 2011 [employer]- All Rights Reserved
[2019-02-02] MEDS ORDERED: ASPIRIN 81 MG TABLET, CHEWABLE ONE (05:25)
[2019-02-02] MEDS: HEPARIN SOD (PORCINE) 5,000 UNIT/ML 1 ML VIAL SUBCUT SCH ×3 (05:26→23:07)
--- NOTE | 2019-02-02 06:22 | PDOC H&P ---
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 Patient presents with 12 hours of slurred speech and worsening weakness on the left side from baseline. She denies headache, blurred vision, palpitations, nausea or vomiting. In the emergency room however she is at baseline. She has an unremarkable work-up and referred to the hospitalist for admission. She denies recent change of medications. Past Medical History Cardiac Medical History: Reports: Hyperlipidema, Hypertension Pulmonary Medical History: Reports: Asthma Neurological Medical History: Reports: Migraine Endocrine Medical History: Reports: Diabetes Mellitus Type 1, Diabetes Mellitus Type 2 Denies: Hyperthyroidism, Hypothyroidism Malignancy Medical History: Reports: Cervical Cancer GI Medical History: Reports: Gastroesophageal Reflux Disease Denies: Cirrhosis, Hepatitis Musculoskeltal Medical History: Reports: Arthritis, Fibromyalgia Psychiatric Medical History: Reports: Depression, General Anxiety Disorder Past Surgical History Past Surgical History: Reports: Section - 2, Cholecystectomy, Hysterectomy, Orthopedic Surgery - bilateral toes and elbows left knee twice, Tubal Ligation, Other - Ventral hernia and pseudocyst removal Denies: Appendectomy Social History Information Source: Patient, [facility] Records Lives with: Spouse/Significant other Smoking Status: Former Smoker Frequency of Alcohol Use: None Hx Recreational Drug Use: No Drugs: None Hx Prescription Drug Abuse: No - Advance Directive Resuscitation Status: Full Code Family History Family History: Reviewed & Not Pertinent, Arthritis, CVA, DM, Hyperlipidemia, Hypertension, Malignancy, Thyroid Disfunction Parental Family History Reviewed: Yes Children Family History Reviewed: Yes Sibling(s) Family History Reviewed.: Yes Medication/Allergy Home Medications: Omeprazole 40 mg PO DAILY 04/02/18 Azithromycin [Zithromax 250 mg Tablet] 250 mg PO DAILY MDD LAST DOSE 11/2311/22/18 Duloxetine HCl [Cymbalta 30 mg Capsule.dr] 60 mg PO DAILY 11/22/18 Insulin Degludec [Tresiba Flextouch U-100] 30 unit SQ DAILY 11/22/18 Quetiapine Fumarate [Seroquel 100 mg Tablet] 100 mg PO DAILY 11/22/18 Aspirin [Aspirin 81 mg Chewable Tablet] 81 mg PO DAILY #30 tab.chew 11/26/18 Atorvastatin Calcium [Lipitor 40 mg Tablet] 40 mg PO QHS #30 tablet 11/26/18 Clopidogrel Bisulfate [Plavix 75 mg Tablet] 75 mg PO DAILY #30 tablet 11/26/18 Famotidine [Pepcid 20 mg Tablet] 20 mg PO Q12 tablet 11/26/18 Hydrochlorothiazide [Hydrodiuril 12.5 mg Tablet] 12.5 mg PO DAILY #30 tablet 11/26/18 Losartan Potassium [Cozaar 50 mg Tablet] 50 mg PO DAILY #30 tablet 11/26/18 Allergies/Adverse Reactions: Penicillins Allergy (Unknown, Verified 11/22/18 09:49) cephalexin monohydrate [From Keflex] Allergy (Verified 11/22/18 09:49) ciprofloxacin [From Cipro] Allergy (Verified 11/22/18 09:49) codeine Allergy (Verified 11/22/18 09:49) Iodinated Contrast Media [IV Dye, Iodine Containing] Allergy (Verified 11/22/18 09:49) latex [Latex] Allergy (Verified 11/22/18 09:49) metformin Allergy (Verified 11/22/18 09:49) nitrofurantoin macrocrystalline [From Macrodantin] Allergy (Verified 11/22/18 09:49) penicillin G Allergy (Verified 11/22/18 09:49) Sulfa (Sulfonamide Antibiotics) Allergy (Verified 11/22/18 09:49) tetracycline [Tetracycline] Allergy (Verified 11/22/18 09:49) nitroglycerin [From Nitrostat] Adverse Reaction (Verified 11/22/18 09:49) Review of Systems Constitutional: ABSENT: chills, fever(s), headache(s), weight gain, weight loss Eyes: ABSENT: visual disturbances Ears: ABSENT: hearing changes Cardiovascular: ABSENT: chest pain, dyspnea on exertion, edema, orthropnea, p alpitations Respiratory: ABSENT: cough, hemoptysis Gastrointestinal: ABSENT: abdominal pain, constipation, diarrhea, hematemesis, hematochezia, nausea, vomiting Genitourinary: ABSENT: dysuria, hematuria Musculoskeletal: ABSENT: joint swelling Integumentary: ABSENT: rash, wounds Neurological: ABSENT: abnormal gait, abnormal speech, confusion, dizziness, focal weakness, syncope Psychiatric: ABSENT: anxiety, depression, homidical ideation, suicidal ideation Endocrine: ABSENT: cold intolerance, heat intolerance, polydipsia, polyuria Hematologic/Lymphatic: ABSENT: easy bleeding, easy bruising Physical Exam Vital Signs: Temp Pulse Resp BP Pulse Ox 98.1 F 95 17 140/78 H 96 02/02/19 01:47 02/02/19 05:17 02/02/19 05:17 02/02/19 05:17 02/02/19 05:17 Intake & Output 01/31/19 02/01/19 02/02/19 11:59 11:59 11:59 Weight 77.8 kg General appearance: PRESENT: no acute distress, well-developed, well-nourished Head exam: PRESENT: atraumatic, normocephalic Eye exam: PRESENT: conjunctiva pink, EOMI, PERRLA. ABSENT: scleral icterus Ear exam: PRESENT: normal external ear exam Mouth exam: PRESENT: moist, tongue midline Neck exam: ABSENT: carotid bruit, JVD, lymphadenopathy, thyromegaly Respiratory exam: PRESENT: clear to auscultation gerardo. ABSENT: rales, rhonchi, wheezes Cardiovascular exam: PRESENT: RRR. ABSENT: diastolic murmur, rubs, systolic murmur Pulses: PRESENT: normal dorsalis pedis pul Vascular exam: PRESENT: normal capillary refill GI/Abdominal exam: PRESENT: normal bowel sounds, soft. ABSENT: distended, guarding, mass, organolmegaly, rebound, tenderness Rectal exam: PRESENT: deferred Extremities exam: PRESENT: full ROM. ABSENT: calf tenderness, clubbing, pedal edema Musculoskeletal exam: PRESENT: other - Left side 4 out of 5 weakness at baseline Neurological exam: PRESENT: alert, awake, oriented to person, oriented to place, oriented to time, oriented to situation, CN II-XII grossly intact. ABSENT: motor sensory deficit Psychiatric exam: PRESENT: appropriate affect, normal mood. ABSENT: homicidal ideation, suicidal ideation Skin exam: PRESENT: dry, intact, warm. ABSENT: cyanosis, rash Results Laboratory Results: 02/02/19 01:43 02/02/19 01:43 02/02/19 02/02/19 02/02/19 01:43 01:43 01:43 WBC 5.3 RBC 4.90 Hgb 14.0 Hct 40.0 MCV 82 MCH 28.5 MCHC 35.0 RDW 13.9 Plt Count 231 Seg Neutrophils % 44.0 Sodium 138.3 Potassium 3.8 Chloride 99 Carbon Dioxide 29 Anion Gap 10 BUN 14 Creatinine 0.59 Est GFR ( Amer) > 60 Glucose 354 H Calcium 10.0 Total Bilirubin 0.5 AST 19 Alkaline Phosphatase 77 Total Protein 7.3 Albumin 4.5 TSH 4.07 Urine Color Urine Appearance Urine pH Ur Specific [place] Urine Protein Urine Glucose (UA) Urine Ketones Urine Blood Urine Nitrite Ur Leukocyte Esterase Urine WBC (Auto) Urine RBC (Auto) 02/02/19 02:40 WBC RBC Hgb Hct MCV MCH MCHC RDW Plt Count Seg Neutrophils % Sodium Potassium Chloride Carbon Dioxide Anion Gap BUN Creatinine Est GFR ( Amer) Glucose Calcium Total Bilirubin AST Alkaline Phosphatase Total Protein Albumin TSH Urine Color STRAW Urine Appearance CLEAR Urine pH 7.0 Ur Specific [place] 1.028 Urine Protein NEGATIVE Urine Glucose (UA) >=500 H Urine Ketones NEGATIVE Urine Blood MODERATE H Urine Nitrite NEGATIVE Ur Leukocyte Esterase NEGATIVE Urine WBC (Auto) 1 Urine RBC (Auto) 0 02/02/19 01:43 Troponin I < 0.012 Impressions: Chest X-Ray 02/02/19 01:46 IMPRESSION: No active disease. Head CT 02/02/19 01:49 IMPRESSION: No acute intracranial abnormality TECHNICAL DOCUMENTATION: Quality ID # 436: Final reports with documentation of one or more dose reduction techniques (e.g., Automated exposure control, adjustment of the mA and/or kV according to patient size, use of iterative reconstruction technique) copyright 2010 [employer]- All Rights Reserved Head CTA 02/02/19 01:49 IMPRESSION: No measurable areas of stenosis in the head or neck. TECHNICAL DOCUMENTATION: Quality ID # [id number]: Final reports with documentation of one or more dose reduction techniques (e.g., Automated exposure control, adjustment of the mA and/or kV according to patient size, use of iterative reconstruction technique) copyright 2010 [employer]- All Rights Reserved Neck CTA 02/02/19 01:49 IMPRESSION: No measurable areas of stenosis in the head or neck. TECHNICAL DOCUMENTATION: Quality ID # [id number]: Final reports with documentation of one or more dose reduction techniques (e.g., Automated exposure control, adjustment of the mA and/or kV according to patient size, use of iterative reconstruction technique) copyright 2011 [employer]- All Rights Reserved Assessment and Plan - Diagnosis (1) TIA (transient ischemic attack) Is this a current diagnosis for this admission?: Yes Plan: CVA care set deployed, aspirin, Plavix, Lipitor, follow-up MRI and carotid Doppler, A1c and TSH. (2) Diabetes mellitus Is this a current diagnosis for this admission?: Yes Plan: Insulin sliding scale, follow-up A1c (3) HLD (hyperlipidemia) Is this a current diagnosis for this admission?: Yes Plan: Follow-up lipid profile, Lipitor ordered (4) HTN (hypertension) Is this a current diagnosis for this admission?: Yes Plan: Permissive hypertension (5) Panic attacks Is this a current diagnosis for this admission?: Yes Plan: Evaluate TSH for medical cause. Perhaps contributing factor to chief complaint. Symptomatic management - Time Time Spent with patient: 25-34 minutes
[2019-02-02] MEDS: INSULIN LISPRO 100 UNIT/ML 3 ML VIAL SUBCUT SCH ×3 (07:58→17:39)
[2019-02-02] MEDS ORDERED: ASPIRIN 81 MG TABLET, ENT COATED PO SCH (10:00)
--- NOTE | 2019-02-02 10:42 | PDOC PROGRESS REPORT ---
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 Patient presents with 12 hours of slurred speech and worsening weakness on the left side from baseline. She denies headache, blurred vision, palpitations, nausea or vomiting. In the emergency room however she is at baseline. She has an unremarkable work-up and referred to the hospitalist for admission. She denies recent change of medications. 02/02/2019-patient admitted with left-sided weakness and dysarthria. She had a history of hypertension diabetes mellitus depression anxiety disorder. Work-up so far negative for acute pathology. MRI of the brain was done results are pending. Reason For Visit: TIA Physical Exam Vital Signs: Temp Pulse Resp BP Pulse Ox 97.5 F 82 16 128/73 H 95 02/02/19 07:48 02/02/19 08:00 02/02/19 08:00 02/02/19 08:00 02/02/19 08:00 Intake & Output 02/01/19 02/02/19 02/03/19 06:59 06:59 06:59 Intake Total 240 Balance 240 Weight 77.8 kg General appearance: PRESENT: no acute distress, cooperative Head exam: PRESENT: atraumatic Eye exam: PRESENT: PERRLA Mouth exam: PRESENT: moist, tongue midline Teeth exam: PRESENT: poor dentation Neck exam: ABSENT: carotid bruit, JVD, lymphadenopathy, thyromegaly Respiratory exam: PRESENT: clear to auscultation gerardo. ABSENT: rales, rhonchi, wheezes Cardiovascular exam: PRESENT: RRR. ABSENT: diastolic murmur, rubs, systolic murmur GI/Abdominal exam: PRESENT: normal bowel sounds, soft. ABSENT: distended, guarding, mass, organolmegaly, rebound, tenderness Rectal exam: PRESENT: deferred Neurological exam: PRESENT: alert, awake, oriented to person, oriented to place, oriented to time, oriented to situation, other - Patient has a left-sided weakness power is 4/5.. ABSENT: motor sensory deficit Results Laboratory Results: 02/02/19 01:43 02/02/19 01:43 02/02/19 02/02/19 02/02/19 01:43 01:43 01:43 WBC 5.3 RBC 4.90 Hgb 14.0 Hct 40.0 MCV 82 MCH 28.5 MCHC 35.0 RDW 13.9 Plt Count 231 Seg Neutrophils % 44.0 Sodium 138.3 Potassium 3.8 Chloride 99 Carbon Dioxide 29 Anion Gap 10 BUN 14 Creatinine 0.59 Est GFR ( Amer) > 60 Glucose 354 H Calcium 10.0 Total Bilirubin 0.5 AST 19 Alkaline Phosphatase 77 Total Protein 7.3 Albumin 4.5 TSH 4.07 Urine Color Urine Appearance Urine pH Ur Specific [place] Urine Protein Urine Glucose (UA) Urine Ketones Urine Blood Urine Nitrite Ur Leukocyte Esterase Urine WBC (Auto) Urine RBC (Auto) 02/02/19 02:40 WBC RBC Hgb Hct MCV MCH MCHC RDW Plt Count Seg Neutrophils % Sodium Potassium Chloride Carbon Dioxide Anion Gap BUN Creatinine Est GFR ( Amer) Glucose Calcium Total Bilirubin AST Alkaline Phosphatase Total Protein Albumin TSH Urine Color STRAW Urine Appearance CLEAR Urine pH 7.0 Ur Specific [place] 1.028 Urine Protein NEGATIVE Urine Glucose (UA) >=500 H Urine Ketones NEGATIVE Urine Blood MODERATE H Urine Nitrite NEGATIVE Ur Leukocyte Esterase NEGATIVE Urine WBC (Auto) 1 Urine RBC (Auto) 0 02/02/19 01:43 Troponin I < 0.012 Impressions: Chest X-Ray 02/02/19 01:46 IMPRESSION: No active disease. Head CT 02/02/19 01:49 IMPRESSION: No acute intracranial abnormality TECHNICAL DOCUMENTATION: Quality ID # 436: Final reports with documentation of one or more dose reduction techniques (e.g., Automated exposure control, adjustment of the mA and/or kV according to patient size, use of iterative reconstruction technique) copyright 2010 [employer]- All Rights Reserved Head CTA 02/02/19 01:49 IMPRESSION: No measurable areas of stenosis in the head or neck. TECHNICAL DOCUMENTATION: Quality ID # 436: Final reports with documentation of one or more dose reduction techniques (e.g., Automated exposure control, adjustment of the mA and/or kV according to patient size, use of iterative reconstruction technique) copyright 2010 [employer]- All Rights Reserved Neck CTA 02/02/19 01:49 IMPRESSION: No measurable areas of stenosis in the head or neck. TECHNICAL DOCUMENTATION: Quality ID # 436: Final reports with documentation of one or more dose reduction techniques (e.g., Automated exposure control, adjustment of the mA and/or kV according to patient size, use of iterative reconstruction technique) copyright 2011 [employer]- All Rights Reserved Assessment and Plan - Diagnosis (1) TIA (transient ischemic attack) Is this a current diagnosis for this admission?: Yes Plan: CVA care set deployed, aspirin, Plavix, Lipitor, follow-up MRI and carotid Doppler, A1c and TSH. 02/02/2019-patient is presently on aspirin Rybix and Lipitor MRI is pending. CT head and CT of the neck was negative for acute pathology. plan is to cancel carotid Doppler. (2) Diabetes mellitus Is this a current diagnosis for this admission?: Yes Plan: Insulin sliding scale, follow-up A1c 02/02/2019-patient blood sugars to this morning is 354. Blood sugar is 258 and plan to check hemoglobin A1c tomorrow. Patient is presently on Humalog 15 units AC plan is to change it to 15 units twice a day. Continue insulin sliding scale before meals and at bedtime. (3) Hypertension Qualifiers: Hypertension type: unspecified Qualified Code(s): I10 - Essential (primary) hypertension Is this a current diagnosis for this admission?: No Plan: 02/02/2019-patient blood pressure today is 128/73. Pulse ox is 95% with heart rate of 82. Plan is to continue the present management. (4) Panic attacks Is this a current diagnosis for this admission?: Yes Plan: Evaluate TSH for medical cause. Perhaps contributing factor to chief complaint. Symptomatic management - Time Time Spent with patient: 25-34 minutes Medications reviewed and adjusted accordingly: Yes Anticipated discharge: Home
--- NOTE | 2019-02-02 12:41 | RADIOLOGY REPORT (SQ) ---
EXAM DESCRIPTION: MRI HEAD WITHOUT COMPLETED DATE/TIME: 02/02/2019 10:38 am REASON FOR STUDY: tia COMPARISON: CT angio head and neck 02/02/2019 CT brain 02/02/2019, 11/22/2018, 10/28/2016 MRI brain 09/30/2014 TECHNIQUE: Multiplanar imaging includes non-contrasted T1, T2, FLAIR, and diffusion with ADC map seq uences. Images stored on PACS. LIMITATIONS: None. FINDINGS: ANATOMY: No developmental anomalies. Normal vascular flow voids. Pituitary fossa normal. CSF SPACES: Normal in size and contour. No hemorrhage. CEREBRUM: No MRI evidence of acute large territory ischemic change, acute intracranial hemorrhage, ma ss effect, or midline shift. FLAIR images demonstrate punctate chronic lacunar infarcts in the left thalamus and bilateral basal g anglia. POSTERIOR FOSSA: There is a punctate focus of increased FLAIR/ diffusion signal in the posterior left middle cerebellar peduncle, best shown on FLAIR image 9. There is associated decreased T1 weighted signal in this area. This could represent a subacute demyelinating plaque or small subacute infarct. Internal auditory canals, cerebello-pontine angles, mastoids normal. DIFFUSION IMAGING: Positive for a punctate focus of increased signal in the left middle cerebellar pe duncle which could represent a tiny subacute lacunar infarct or demyelinating plaque. ORBITS: No masses. Globes normal. PARANASAL SINUSES: No fluid levels. Mucosa normal. OTHER: No other significant finding. IMPRESSION: Small focus of altered diffusion FLAIR/T2 signal in the left middle cerebellar peduncle. This could represent a small subacute infarct or demyelinating plaque. EVIDENCE OF ACUTE STROKE: NO. TECHNICAL DOCUMENTATION: JOB ID: [id number] [employer]- All Rights Reserved Reading location - IP/workstation name: [facility]
[2019-02-02] MEDS ORDERED: HUM INSULIN NPH/REG INSULIN HM 100 UNIT/1 ML 3 ML SUBCUT SCH (16:00)
[2019-02-02] MEDS: HUM INSULIN NPH/REG INSULIN HM 100 UNIT/1 ML 3 ML SUBCUT SCH (17:38)
[2019-02-02] MEDS ORDERED: HYDROCHLOROTHIAZIDE 12.5 MG TABLET PO ONE (19:30)
[2019-02-02] MEDS ORDERED: CLOPIDOGREL BISULFATE 75 MG TABLET PO ONE (19:30)
[2019-02-02] MEDS ORDERED: METOPROLOL SUCCINATE 25 MG TAB.SR.24H PO ONE (19:30)
[2019-02-02] MEDS ORDERED: PANTOPRAZOLE SODIUM 40 MG TABLET.DR PO ONE (19:30)
[2019-02-02] MEDS ORDERED: LOSARTAN POTASSIUM 50 MG TABLET PO ONE (19:30)
[2019-02-02] MEDS ORDERED: QUETIAPINE FUMARATE 100 MG TABLET PO SCH (22:00)
[2019-02-02] MEDS ORDERED: ATORVASTATIN CALCIUM 40 MG TABLET PO SCH (22:00)
[2019-02-02] MEDS ORDERED: TRAMADOL HCL 50 MG TABLET PO PRN (23:04)
--- NOTE | 2019-02-02 23:12 | EKG REPORT ---
SEVERITY:- BORDERLINE ECG - SINUS RHYTHM LVH BY VOLTAGE CONSIDER INFERIOR MA : Confirmed by: Jennifer Burgess 02-Feb-2019 23:11:38
[2019-02-03] MEDS: HEPARIN SOD (PORCINE) 5,000 UNIT/ML 1 ML VIAL SUBCUT SCH (05:31)
[2019-02-03 05:42] LABS: ABSOLUTE BASOPHILS # (AUTO) 0.1 10^3/uL (0.0-0.2); ABSOLUTE EOSINOPHILS # (AUTO) 0.2 10^3/uL (0.0-0.6); ABSOLUTE LYMPHOCYTES (AUTO) 2.3 10^3/uL (0.5-4.7); ABSOLUTE MONOCYTES (AUTO) 0.5 10^3/uL (0.1-1.4); ABSOLUTE NEUT (AUTO) 2.8 10^3/uL (1.7-8.2); BASOPHILS % (AUTO) 1.2 % (0-2); EOSINOPHILS % (AUTO) 3.4 % (0-6); HEMATOCRIT 39.7 % (36.0-47.0); HEMOGLOBIN 13.9 g/dL (12.0-15.5); MEAN CORPUSCULAR HEMOGLOBIN 28.4 pg (27.0-33.4); MEAN CORPUSCULAR VOLUME 81 fl (80-97); MONOCYTES % (AUTO) 9.1 % (3-13); PLATELET COUNT 213 10^3/uL (150-450); RED CELL DISTRIBUTION WIDTH 13.5 % (11.5-14.0); SEGMENTED NEUTROPHILS % (AUTO) 47.3 % (42-78); TOTAL CELLS COUNTED % (AUTO) 100 %
[2019-02-03 05:59] LABS: ALBUMIN 4.4 g/dL (3.5-5.0); ALKALINE PHOSPHATASE 74 U/L (38-126); ANION GAP 10 (5-19); ASPARTATE AMINO TRANSFERASE 26 U/L (14-36); BILIRUBIN,DIRECT 0.2 mg/dL (0.0-0.4); BILIRUBIN,TOTAL 0.6 mg/dL (0.2-1.3); BLOOD UREA NITROGEN 13 mg/dL (7-20); CALCIUM 9.5 mg/dL (8.4-10.2); CARBON DIOXIDE 32 mmol/L (22-30); CHLORIDE 96 mmol/L (98-107); CHOLESTEROL 182.36 mg/dL (0-200); GLUCOSE 222 mg/dL (75-110); TRIGLYCERIDES 271 mg/dL (<150)
[2019-02-03 06:00] LABS: POTASSIUM 4.2 mmol/L (3.6-5.0)
[2019-02-03 06:10] LABS: DIRECT LDL 109 mg/dL (<100)
[2019-02-03 06:14] LABS: VLDL CHOLESTEROL 54.2 mg/dL (10-31)
[2019-02-03] MEDS ORDERED: PANTOPRAZOLE SODIUM 40 MG TABLET.DR PO SCH (08:00)
[2019-02-03] MEDS: INSULIN LISPRO 100 UNIT/ML 3 ML VIAL SUBCUT SCH ×2 (08:12→12:00)
[2019-02-03] MEDS: HUM INSULIN NPH/REG INSULIN HM 100 UNIT/1 ML 3 ML SUBCUT SCH (09:54)
[2019-02-03] MEDS ORDERED: CLOPIDOGREL BISULFATE 75 MG TABLET PO SCH (10:00)
[2019-02-03] MEDS ORDERED: LOSARTAN POTASSIUM 50 MG TABLET PO SCH (10:00)
[2019-02-03] MEDS ORDERED: METOPROLOL SUCCINATE 25 MG TAB.SR.24H PO SCH (10:00)
[2019-02-03] MEDS ORDERED: (PENDING PHARMACY ID) (Losartan/Hydrochlorothiazide [Losartan-Hctz 50-12.5 Mg Tab] 1 TAB) PO SCH (10:00)
[2019-02-03] MEDS ORDERED: ASPIRIN 81 MG TABLET, ENT COATED PO SCH (10:00)
[2019-02-03] MEDS ORDERED: HYDROCHLOROTHIAZIDE 12.5 MG TABLET PO SCH (10:00)
--- NOTE | 2019-02-03 10:06 | PDOC DISCHARGE SUMMARY ---
General - Admit/Disc Date/PCP Admission Date/Primary Care Provider: 02/02/19 03:11 JACK SÁNCHEZ, Discharge Date: 02/03/19 - Discharge Diagnosis (1) TIA (transient ischemic attack) Is this a current diagnosis for this admission?: Yes Summary: CVA care set deployed, aspirin, Plavix, Lipitor, follow-up MRI and carotid Doppler, A1c and TSH. 02/02/2019-patient is presently on aspirin, plavix and Lipitor ...MRI is pending. CT head and CT of the neck was negative for acute pathology. plan is to cancel carotid Doppler. 02/[id number]-old female patient with previous history of CVA admitted with TIA symptoms. CT head was negative for acute changes CT of the neck was negativ e for carotid stenosis MRI of the brain was done this tightly questionable subacute infarct but radiologist also mentioned there is no acute stroke. Patient is agreed to go home today. She said she is back to her baseline. (2) Diabetes mellitus Is this a current diagnosis for this admission?: Yes Summary: Insulin sliding scale, follow-up A1c 02/02/2019-patient blood sugars to this morning is 354. Blood sugar is 258 and plan to check hemoglobin A1c tomorrow. Patient is presently on Humalog 15 units AC plan is to change it to 15 units twice a day. Continue insulin sliding scale before meals and at bedtime. 02/03/2019 patient blood sugar today is 73. Hemoglobin A1c was 9. Compliance with medications were discussed with the patient. Patient is advised to continue the diabetic medications at home. (3) Hypertension Is this a current diagnosis for this admission?: No Summary: 02/02/2019-patient blood pressure today is 128/73. Pulse ox is 95% with heart rate of 82. Plan is to continue the present management. 02/03/2019-patient blood pressure today is 119/73 stable patient is advised to resume her home medications upon discharge. (4) Panic attacks Is this a current diagnosis for this admission?: Yes Summary: 02/03/2019-patient admitted for panic attacks no complaints no concerns from the patient today. - Additional Information Resuscitation Status: Full Code Discharge Diet: Diabetic Discharge Activity: Activity As Tolerated Home Medications: Insulin Degludec [Tresiba Flextouch U-100] 45 unit SQ DAILY 11/22/18 Quetiapine Fumarate [Seroquel 100 mg Tablet] 100 mg PO QHS 11/22/18 Clopidogrel Bisulfate [Plavix 75 mg Tablet] 75 mg PO DAILY #30 tablet 11/26/18 Aspirin [Ecotrin 81 mg EC Tablet] 81 mg PO DAILY 02/02/19 Insulin Aspart [Novolog Flexpen] 20 units SUBCUT MEALS 02/02/19 Losartan/Hydrochlorothiazide [Losartan-Hctz 50-12.5 mg Tab] 1 tab PO DAILY 02/02/19 Metoprolol Succinate [Toprol Xl 25 mg Tab.sr] 25 mg PO DAILY 02/02/19 Pantoprazole Sodium [Protonix [address] Tablet] 40 mg PO QAM 02/02/19 Atorvastatin Calcium [Lipitor 40 mg Tablet] 40 mg PO QHS tablet 02/03/19 History of Present Illness History of Present Illness: ORLY OSEI is a 59 year old female 59 year old female with a past medical history of 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 Patient presents with 12 hours of slurred speech and worsening weakness on the left side from baseline. She denies headache, blurred vision, palpitations, nausea or vomiting. In the emergency room however she is at baseline. She has an unremarkable work-up and referred to the hospitalist for admission. She denies recent change of medications. 02/02/2019-patient admitted with left-sided weakness and dysarthria. She had a history of hypertension diabetes mellitus depression anxiety disorder. Work-up so far negative for acute pathology. MRI of the brain was done results are pending. 02/03/[id number]-xhes-old female with history of previous CVA admitted with left- sided weakness and dysarthria symptoms are resolving. CT head is negative for acute changes neck CT is negative for acute pathology, MRI of the brain without contrast negative for acute stroke there is a questionable slight small subacute infarct as per the radiologist. Patient is expressing desire to go home. Explained to her the MRI report in detail she understood and she says her physical condition is back to baseline. Prefers to go home. Physical Exam Vital Signs: Temp Pulse Resp BP Pulse Ox 97.4 F 77 16 119/73 92 02/03/19 07:48 02/03/19 07:48 02/03/19 07:48 02/03/19 07:48 02/03/19 07:48 Intake & Output 02/02/19 02/03/19 02/04/19 06:59 06:59 06:59 Intake Total 577 Output Total 1950 Balance -1373 Weight 77.8 kg 78 kg General appearance: PRESENT: no acute distress, cooperative Head exam: PRESENT: atraumatic Eye exam: PRESENT: PERRLA Mouth exam: PRESENT: moist, tongue midline Teeth exam: PRESENT: poor dentation Neck exam: ABSENT: carotid bruit, JVD, lymphadenopathy, thyromegaly Respiratory exam: PRESENT: clear to auscultation gerardo. ABSENT: rales, rhonchi, wheezes Cardiovascular exam: PRESENT: RRR. ABSENT: diastolic murmur, rubs, systolic murmur Pulses: PRESENT: normal dorsalis pedis pul GI/Abdominal exam: PRESENT: normal bowel sounds, soft. ABSENT: distended, guarding, mass, organolmegaly, rebound, tenderness Rectal exam: PRESENT: deferred Extremities exam: PRESENT: full ROM. ABSENT: calf tenderness, clubbing, pedal edema Neurological exam: PRESENT: alert, awake, oriented to person, oriented to time, oriented to situation, other - Patient has left-sided weakness 4/5. Results Laboratory Results: 02/03/19 05:28 02/03/19 05:28 02/03/19 02/03/19 05:28 05:28 WBC 6.0 RBC 4.90 Hgb 13.9 Hct 39.7 MCV 81 MCH 28.4 MCHC 35.0 RDW 13.5 Plt Count 213 Seg Neutrophils % 47.3 Sodium 137.5 Potassium 4.2 Chloride 96 L Carbon Dioxide 32 H Anion Gap 10 BUN 13 Creatinine 0.69 Est GFR ( Amer) > 60 Glucose 222 H Calcium 9.5 Magnesium 1.9 Total Bilirubin 0.6 AST 26 Alkaline Phosphatase 74 Total Protein 7.0 Albumin 4.4 Triglycerides 271 H Cholesterol 182.36 LDL Cholesterol Direct 109 H VLDL Cholesterol 54.2 H HDL Cholesterol 38 L 02/02/19 01:43 Troponin I < 0.012 Impressions: Head MRI 02/02/19 00:00 IMPRESSION: Small focus of altered diffusion FLAIR/T2 signal in the left middle cerebellar peduncle. This could represent a small subacute infarct or demyelin ating plaque. EVIDENCE OF ACUTE STROKE: NO. Chest X-Ray 02/02/19 01:46 IMPRESSION: No active disease. Head CT 02/02/19 01:49 IMPRESSION: No acute intracranial abnormality TECHNICAL DOCUMENTATION: Quality ID # 436: Final reports with documentation of one or more dose reduction techniques (e.g., Automated exposure control, adjustment of the mA and/or kV according to patient size, use of iterative reconstruction technique) copyright 2010 [employer]- All Rights Reserved Head CTA 02/02/19 01:49 IMPRESSION: No measurable areas of stenosis in the head or neck. TECHNICAL DOCUMENTATION: Quality ID # 436: Final reports with documentation of one or more dose reduction techniques (e.g., Automated exposure control, adjustment of the mA and/or kV according to patient size, use of iterative reconstruction technique) copyright 2010 [employer]- All Rights Reserved Neck CTA 02/02/19 01:49 IMPRESSION: No measurable areas of stenosis in the head or neck. TECHNICAL DOCUMENTATION: Quality ID # 436: Final reports with documentation of one or more dose reduction techniques (e.g., Automated exposure control, adjustment of the mA and/or kV according to patient size, use of iterative reconstruction technique) copyright 2010 [employer]- All Rights Reserved Qualifiers - * PATIENT BEING DISCHARGED WITH ANY OF THE FOLLOWING DIAGNOSIS: No VTE patient discharged on overlapping Therapy?: No Acute Heart Failure - Is this a Heart Failure Patient?: No
[2019-02-03 10:51] VITALS: BP 143/79
== END 2019-02-03 13:17 | disposition home or self-care (01) ==
LOC: ER 01:27 → EH 03:11 → 3S 05:06
PROVIDERS: ADMIT Internal Medicine; ATTEND Internal Medicine
DX: G45.9 Transient cerebral ischemic attack, unspecified (principal); E11.40 Type 2 diabetes mellitus with diabetic neuropathy, unspecified; I10 Essential (primary) hypertension; F41.0 Panic disorder [episodic paroxysmal anxiety]; I69.354 Hemiplegia and hemiparesis following cerebral infarction affecting left non-dominant side; I69.322 Dysarthria following cerebral infarction; F32.9 Major depressive disorder, single episode, unspecified; E78.5 Hyperlipidemia, unspecified; M19.90 Unspecified osteoarthritis, unspecified site; Z79.82 Long term (current) use of aspirin; Z79.899 Other long term (current) drug therapy; Z82.3 Family history of stroke; Z82.49 Family history of ischemic heart disease and other diseases of the circulatory system; Z87.891 Personal history of nicotine dependence; Z85.41 Personal history of malignant neoplasm of cervix uteri
CPT/HCPCS: 93005; 99285; 36415 ×2; 82962 ×2; 83735; 84443; 85025 ×2; 80053 ×2; 81001; 84484; 83036; 80061; 70551; 71045; 70450; 70496; 70498; 93010; 97530; 97116; 97162; J1644 ×2; J1815 ×4; J3490 ×4; G0378

== ENCOUNTER 2019-02-18 07:13 | Emergency (ER) | payer OTHER ==
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
[2019-02-18] MEDS ORDERED: ACETAMINOPHEN 325 MG TABLET PO ONE (07:48)
--- NOTE | 2019-02-18 09:20 | RADIOLOGY REPORT (SQ) ---
EXAM DESCRIPTION: CT HEAD WITHOUT COMPLETED DATE/TIME: 02/18/2019 8:22 am REASON FOR STUDY: trauma COMPARISON: 02/02/2019 TECHNIQUE: Axial images acquired through the brain without intravenous contrast. Images reviewed wi th bone, brain and subdural windows. Additional sagittal and coronal reconstructions were generated. Images stored on PACS. All CT scanners at this facility use dose modulation, iterative reconstruction, and/or weight based d osing when appropriate to reduce radiation dose to as low as reasonably achievable (ALARA). [facility]: Dose Right [facility]: CareDose [facility]: Dose Right [facility]: Teradose 4D [facility]: Smart Medicina RADIATION DOSE: CT Rad equipment meets quality standard of care and radiation dose reduction techniq ues were employed. CTDIvol: 53.2 mGy. DLP: 1070 mGy-cm. mGy. LIMITATIONS: None. FINDINGS: VENTRICLES: Normal size and contour. CEREBRUM: No masses. No hemorrhage. No midline shift. No evidence for acute infarction. Normal gra y/white matter differentiation. No areas of low density in the white matter. CEREBELLUM: No masses. No hemorrhage. No alteration of density. No evidence for acute infarction. EXTRAAXIAL SPACES: No fluid collections. No masses. ORBITS AND GLOBE: No intra- or extraconal masses. Normal contour of globe without masses. CALVARIUM: No fracture. PARANASAL SINUSES: No fluid or mucosal thickening. SOFT TISSUES: No mass or hematoma. OTHER: No other significant finding. IMPRESSION: NORMAL BRAIN CT WITHOUT CONTRAST. EVIDENCE OF ACUTE STROKE: NO. COMMENT: Quality ID # 436: Final reports with documentation of one or more dose reduction techniques (e.g., Automated exposure control, adjustment of the mA and/or kV according to patient size, use of iterative reconstruction technique) TECHNICAL DOCUMENTATION: JOB ID: [id number] [employer]- All Rights Reserved Reading location - IP/workstation name: [facility]
--- NOTE | 2019-02-18 09:26 | RADIOLOGY REPORT (SQ) ---
EXAM DESCRIPTION: CT LUMBAR SPINE WITHOUT COMPLETED DATE/TIME: 02/18/2019 8:22 am REASON FOR STUDY: trauma COMPARISON: None. TECHNIQUE: Axial images acquired through the lumbar spine without intravenous contrast. Images revi ewed with lung, soft tissue and bone windows. Reconstructed coronal and sagittal MPR images reviewed . All images stored on PACS. All CT scanners at this facility use dose modulation, iterative reconstruction, and/or weight based d osing when appropriate to reduce radiation dose to as low as reasonably achievable (ALARA). [facility]: Dose Right [facility]: CareDose [facility]: Dose Right [facility]: Teradose 4D [facility]: [employer] RADIATION DOSE: mGy. LIMITATIONS: None. FINDINGS: SEGMENTATION: Normal. No transitional anatomy. ALIGNMENT: Normal. VERTEBRAL BODIES: No fractures. No dislocation. No acute findings. DISCS: No significant protrusions. Study limited by lack of intrathecal contrast. PEDICLES, TRANSVERSE PROCESSES: No fractures. No dislocation. No acute findings. FACETS, POSTERIOR ELEMENTS: No fractures. No dislocation. No spinal stenosis. HARDWARE: None in the spine. VISUALIZED RIBS: No fractures. SOFT TISSUES: No significant or acute finding in adjacent soft tissues. OTHER: No other significant finding. IMPRESSION: NORMAL CT OF THE LUMBAR SPINE. TECHNICAL DOCUMENTATION: JOB ID: [id number] Quality ID # [id number]: Final reports with documentation of one or more dose reduction techniques (e.g., Au tomated exposure control, adjustment of the mA and/or kV according to patient size, use of iterative reconstruction technique) 2010 [employer]- All Rights Reserved Reading location - IP/workstation name: [email or web address]
--- NOTE | 2019-02-18 09:33 | RADIOLOGY REPORT (SQ) ---
EXAM DESCRIPTION: CT THORACIC SPINE WITHOUT COMPLETED DATE/TIME: 02/18/2019 8:22 am REASON FOR STUDY: trauma COMPARISON: None. TECHNIQUE: Axial images acquired through the thoracic spine without intravenous contrast. Images re viewed with lung, soft tissue and bone windows. Reconstructed coronal and sagittal MPR images review ed. Images stored on PACS. All CT scanners at this facility use dose modulation, iterative reconstruction, and/or weight based d osing when appropriate to reduce radiation dose to as low as reasonably achievable (ALARA). [facility]: Dose Right [facility]: CareDose [facility]: Dose Right [facility]: Teradose 4D [facility]: [employer] RADIATION DOSE: CT Rad equipment meets quality standard of care and radiation dose reduction techniq ues were employed. CTDIvol: 99.2 mGy. DLP: 3272 mGy-cm. mGy. LIMITATIONS: None. FINDINGS: VISUALIZED LUNGS: No acute opacities. No pneumothorax. SOFT TISSUES: No soft tissue swelling. No masses. VERTEBRAL BODIES: No fractures. No dislocation. No acute findings. DISCS: Degenerative disc disease at multiple levels. ALIGNMENT: Normal. TRANSVERSE PROCESSES, POSTERIOR ELEMENTS: Hypertrophic osteophytes at multiple levels. HARDWARE: None in the spine. VISUALIZED RIBS: No fractures. OTHER: No other significant finding. IMPRESSION: CHRONIC DEGENERATIVE CHANGES WITHOUT ACUTE FRACTURE. TECHNICAL DOCUMENTATION: JOB ID: [id number] Quality ID # [id number]: Final reports with documentation of one or more dose reduction techniques (e.g., Au tomated exposure control, adjustment of the mA and/or kV according to patient size, use of iterative reconstruction technique) 2010 [employer]- All Rights Reserved Reading location - IP/workstation name: [email or web address]
--- NOTE | 2019-02-18 09:37 | RADIOLOGY REPORT (SQ) ---
EXAM DESCRIPTION: CT CERVICAL SPINE WITHOUT COMPLETED DATE/TIME: 02/18/2019 8:22 am REASON FOR STUDY: trauma COMPARISON: 11/22/2018, 10/19/2017, 11/25/2014 TECHNIQUE: Axial images acquired through the cervical spine without intravenous contrast. Images re viewed with lung, soft tissue and bone windows. Reconstructed coronal and sagittal MPR images review ed. Images stored on PACS. All CT scanners at this facility use dose modulation, iterative reconstruction, and/or weight based d osing when appropriate to reduce radiation dose to as low as reasonably achievable (ALARA). [facility]: Dose Right [facility]: CareDose [facility]: Dose Right [facility]: Teradose 4D [facility]: [employer] RADIATION DOSE: CT Rad equipment meets quality standard of care and radiation dose reduction techniq ues were employed. CTDIvol: 20.9 mGy. DLP: 386 mGy-cm. mGy. LIMITATIONS: None. FINDINGS: ALIGNMENT: Anatomic. MINERALIZATION: Normal. VERTEBRAL BODIES: No fractures or dislocation. There are small lucencies in the body of C2 and C3. These are stable dating back to 2014 and presumably represent small cysts. DISCS: No significant disc disease. FACETS, LATERAL MASSES, POSTERIOR ELEMENTS: No fractures. No dislocation. No acute findings. HARDWARE: None in the spine. VISUALIZED RIBS: No fractures. LUNG APICES AND SOFT TISSUES: No significant or acute findings. OTHER: No other significant finding. IMPRESSION: NO ACUTE OR SIGNIFICANT FINDINGS IN THE CERVICAL SPINE. TECHNICAL DOCUMENTATION: JOB ID: [id number] Quality ID # [id number]: Final reports with documentation of one or more dose reduction techniques (e.g., Au tomated exposure control, adjustment of the mA and/or kV according to patient size, use of iterative reconstruction technique) 2010 [employer]- All Rights Reserved Reading location - IP/workstation name: [email or web address]
[2019-02-18 10:06] VITALS: BP 151/84
== END 2019-02-18 10:10 | disposition home or self-care (01) ==
LOC: ER 07:13
DX: M54.5 Low back pain (principal); M54.6 Pain in thoracic spine; M54.2 Cervicalgia; V49.40XA Driver injured in collision with unspecified motor vehicles in traffic accident, initial encounter; I10 Essential (primary) hypertension; J45.909 Unspecified asthma, uncomplicated; E11.9 Type 2 diabetes mellitus without complications; Z88.0 Allergy status to penicillin; Z88.1 Allergy status to other antibiotic agents; Z88.5 Allergy status to narcotic agent; Z91.041 Radiographic dye allergy status; Z91.040 Latex allergy status; Z88.8 Allergy status to other drugs, medicaments and biological substances; Z88.2 Allergy status to sulfonamides
CPT/HCPCS: 70450; 72125; 72128; 72131; 82962

== ENCOUNTER 2019-02-18 11:56 | Emergency (ER) | payer OTHER ==
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
[2019-02-18 12:36] LABS: APPEARANCE,URINE CLEAR; BILIRUBIN,URINE NEGATIVE (NEGATIVE); COLOR,URINE YELLOW; GLUCOSE, URINE >=500 mg/dL (NEGATIVE); KETONES,URINE NEGATIVE (NEGATIVE); LEUKOCYTE ESTERASE,URINE SMALL (NEGATIVE); NITRITE,URINE NEGATIVE (NEGATIVE); PROTEIN,URINE NEGATIVE (NEGATIVE); URINE SPECIFIC GRAVITY 1.035; UROBILINOGEN,URINE NEGATIVE mg/dL (<2.0)
[2019-02-18 12:50] LABS: URINE AMPHETAMINES SCREEN NEGATIVE; URINE BARBITURATES SCREEN NEGATIVE; URINE BENZODIAZEPINES SCREEN NEGATIVE; URINE COCAINE SCREEN NEGATIVE; URINE MARIJUANA (THC) SCREEN NEGATIVE; URINE METHADONE SCREEN NEGATIVE; URINE PHENCYCLIDINE SCREEN NEGATIVE
[2019-02-18 12:51] LABS: ABSOLUTE BASOPHILS # (AUTO) 0.1 10^3/uL (0.0-0.2); ABSOLUTE EOSINOPHILS # (AUTO) 0.1 10^3/uL (0.0-0.6); ABSOLUTE LYMPHOCYTES (AUTO) 1.5 10^3/uL (0.5-4.7); ABSOLUTE MONOCYTES (AUTO) 0.5 10^3/uL (0.1-1.4); BASOPHILS % (AUTO) 1.1 % (0-2); EOSINOPHILS % (AUTO) 1.9 % (0-6); HEMATOCRIT 40.7 % (36.0-47.0); LYMPHOCYTES % (AUTO) 24.6 % (13-45); MEAN CORPUSCULAR HEMOGLOBIN 27.8 pg (27.0-33.4); MEAN CORPUSCULAR HGB CONC 34.4 g/dL (32.0-36.0); MEAN CORPUSCULAR VOLUME 81 fl (80-97); MONOCYTES % (AUTO) 7.4 % (3-13); PLATELET COUNT 230 10^3/uL (150-450); RED BLOOD COUNT 5.02 10^6/uL (3.72-5.28); RED CELL DISTRIBUTION WIDTH 13.3 % (11.5-14.0); TOTAL CELLS COUNTED % (AUTO) 100 %; WHITE BLOOD COUNT 6.2 10^3/uL (4.0-10.5)
[2019-02-18 13:12] LABS: ALBUMIN 4.7 g/dL (3.5-5.0); ALKALINE PHOSPHATASE 69 U/L (38-126); ANION GAP 11 (5-19); ASPARTATE AMINO TRANSFERASE 21 U/L (14-36); BILIRUBIN,DIRECT 0.1 mg/dL (0.0-0.4); BILIRUBIN,TOTAL 0.6 mg/dL (0.2-1.3); BLOOD UREA NITROGEN 13 mg/dL (7-20); CALCIUM 9.8 mg/dL (8.4-10.2); CARBON DIOXIDE 28 mmol/L (22-30); CHLORIDE 99 mmol/L (98-107); GLUCOSE 291 mg/dL (75-110); POTASSIUM 4.2 mmol/L (3.6-5.0); TOTAL PROTEIN 7.7 g/dL (6.3-8.2)
--- NOTE | 2019-02-18 13:32 | RADIOLOGY REPORT (SQ) ---
EXAM DESCRIPTION: CT HEAD WITHOUT COMPLETED DATE/TIME: 02/18/2019 1:19 pm REASON FOR STUDY: cva? COMPARISON: 02/18/2019 TECHNIQUE: Axial images acquired through the brain without intravenous contrast. Images reviewed wi th bone, brain and subdural windows. Additional sagittal and coronal reconstructions were generated. Images stored on PACS. All CT scanners at this facility use dose modulation, iterative reconstruction, and/or weight based d osing when appropriate to reduce radiation dose to as low as reasonably achievable (ALARA). [facility]: Dose Right [facility]: CareDose [facility]: Dose Right [facility]: Teradose 4D [facility]: Smart [employer] RADIATION DOSE: CT Rad equipment meets quality standard of care and radiation dose reduction techniq ues were employed. CTDIvol: 53.2 mGy. DLP: 1070 mGy-cm. mGy. LIMITATIONS: None. FINDINGS: VENTRICLES: Normal size and contour. CEREBRUM: No masses. No hemorrhage. No midline shift. No evidence for acute infarction. Focus of hypoattenuation within the left cerebellar peduncle compatible prior lacunar infarct. Normal tse/wh ite matter differentiation. No areas of low density in the white matter. CEREBELLUM: No masses. No hemorrhage. No alteration of density. No evidence for acute infarction. EXTRAAXIAL SPACES: No fluid collections. No masses. ORBITS AND GLOBE: No intra- or extraconal masses. Normal contour of globe without masses. CALVARIUM: No fracture. PARANASAL SINUSES: No fluid or mucosal thickening. SOFT TISSUES: No mass or hematoma. OTHER: No other significant finding. IMPRESSION: No evidence of acute intracranial hemorrhage or large vascular territory infarct. EVIDENCE OF ACUTE STROKE: NO. COMMENT: Quality ID # [id number]: Final reports with documentation of one or more dose reduction techniques (e.g., Automated exposure control, adjustment of the mA and/or kV according to patient size, use of iterative reconstruction technique) TECHNICAL DOCUMENTATION: JOB ID: [id number] [employer]- All Rights Reserved Reading location - IP/workstation name: [email or web address]
[2019-02-18 14:04] VITALS: BP 141/81
== END 2019-02-18 14:09 | disposition home or self-care (01) ==
LOC: ER 11:56
DX: R27.0 Ataxia, unspecified (principal); R53.1 Weakness; I10 Essential (primary) hypertension; J45.909 Unspecified asthma, uncomplicated; E11.9 Type 2 diabetes mellitus without complications; Z79.02 Long term (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 of antithrombotics/antiplatelets; Z79.82 Long term (current) use of aspirin; Z86.73 Personal history of transient ischemic attack (TIA), and cerebral infarction without residual deficits; Z85.41 Personal history of malignant neoplasm of cervix uteri; Z88.0 Allergy status to penicillin; Z88.1 Allergy status to other antibiotic agents; Z88.5 Allergy status to narcotic agent; Z91.041 Radiographic dye allergy status; Z91.040 Latex allergy status; Z88.2 Allergy status to sulfonamides; Z88.8 Allergy status to other drugs, medicaments and biological substances
CPT/HCPCS: 36415; 70450; 80053; 80307; 81001; 84484; 85025

== ENCOUNTER 2019-04-02 11:39 | Observation (INO) | payer OTHER ==
[2019-04-02 12:08] LABS: ABSOLUTE EOSINOPHILS # (AUTO) 0.1 10^3/uL (0.0-0.6); ABSOLUTE LYMPHOCYTES (AUTO) 1.6 10^3/uL (0.5-4.7); ABSOLUTE MONOCYTES (AUTO) 0.4 10^3/uL (0.1-1.4); ABSOLUTE NEUT (AUTO) 3.3 10^3/uL (1.7-8.2); BASOPHILS % (AUTO) 0.6 % (0-2); HEMATOCRIT 41.3 % (36.0-47.0); HEMOGLOBIN 14.5 g/dL (12.0-15.5); LYMPHOCYTES % (AUTO) 29.8 % (13-45); MEAN CORPUSCULAR HEMOGLOBIN 28.2 pg (27.0-33.4); MEAN CORPUSCULAR VOLUME 81 fl (80-97); MONOCYTES % (AUTO) 6.6 % (3-13); PLATELET COUNT 208 10^3/uL (150-450); RED BLOOD COUNT 5.12 10^6/uL (3.72-5.28); RED CELL DISTRIBUTION WIDTH 13.3 % (11.5-14.0); TOTAL CELLS COUNTED % (AUTO) 100 %; WHITE BLOOD COUNT 5.4 10^3/uL (4.0-10.5)
[2019-04-02 12:31] LABS: ALBUMIN 4.7 g/dL (3.5-5.0); ALKALINE PHOSPHATASE 71 U/L (38-126); ANION GAP 11 (5-19); ASPARTATE AMINO TRANSFERASE 23 U/L (14-36); BILIRUBIN,DIRECT 0.2 mg/dL (0.0-0.4); BILIRUBIN,TOTAL 0.6 mg/dL (0.2-1.3); BLOOD UREA NITROGEN 13 mg/dL (7-20); CALCIUM 9.4 mg/dL (8.4-10.2); CARBON DIOXIDE 28 mmol/L (22-30); CHLORIDE 100 mmol/L (98-107); CREATINE KINASE 65 U/L (30-135); GLUCOSE 353 mg/dL (75-110); POTASSIUM 4.2 mmol/L (3.6-5.0); TOTAL PROTEIN 7.7 g/dL (6.3-8.2)
[2019-04-02 12:42] LABS: CREATINE KINASE MB 1.27 ng/mL (<4.55)
[2019-04-02 12:48] LABS: TROPONIN I < 0.012 ng/mL
--- NOTE | 2019-04-02 13:44 | ER Document Report ---
ED General - General Chief Complaint: General Weakness Stated Complaint: GENERAL WEAKNESS Time Seen by Provider: 04/02/19 13:25 Primary Care Provider: JACK SÁNCHEZ DO [Primary Care Provider] - Follow up as needed Mode of Arrival: Medic Information source: Patient TRAVEL OUTSIDE OF THE [place] IN LAST 30 DAYS: No - HPI Patient complains to provider of: chest fluttering; facial droop; slurred speech Onset: This morning - Pt has h/o CVA in 11/18- seen here. Has had speech slurring since then. She states that earlier today (around 10 am) she developed some chest fluttering and some more slurring of her speech than normal. Also states she had some tongue numbness and L facial droop. - Related Data Allergies/Adverse Reactions: Penicillins Allergy (Unknown, Verified 11/22/18 09:49) cephalexin monohydrate [From Keflex] Allergy (Verified 11/22/18 09:49) ciprofloxacin [From Cipro] Allergy (Verified 11/22/18 09:49) codeine Allergy (Verified 11/22/18 09:49) Iodinated Contrast Media [IV Dye, Iodine Containing] Allergy (Verified 11/22/18 09:49) latex [Latex] Allergy (Verified 11/22/18 09:49) metformin Allergy (Verified 11/22/18 09:49) nitrofurantoin macrocrystalline [From Macrodantin] Allergy (Verified 11/22/18 09:49) penicillin G Allergy (Verified 11/22/18 09:49) Sulfa (Sulfonamide Antibiotics) Allergy (Verified 11/22/18 09:49) tetracycline [Tetracycline] Allergy (Verified 11/22/18 09:49) nitroglycerin [From Nitrostat] Adverse Reaction (Verified 11/22/18 09:49) Past Medical History - General Information source: Patient - Social History Smoking Status: Unknown if Ever Smoked Family History: Reviewed & Not Pertinent, Arthritis, CVA, DM, Hyperlipidemia, Hypertension, Malignancy, Thyroid Disfunction Patient has suicidal ideation: No Patient has homicidal ideation: No - Past Medical History Cardiac Medical History: Reports: Hx Hypercholesterolemia, Hx Hypertension Pulmonary Medical History: Reports: Hx Asthma Neurological Medical History: Reports: Hx Cerebrovascular Accident, Hx Migraine Endocrine Medical History: Reports: Hx Diabetes Mellitus Type 1, Hx Diabetes Mellitus Type 2. Denies: Hx Hyperthyroidism, Hx Hypothyroidism Renal/ Medical History: Denies: Hx Peritoneal Dialysis Malignancy Medical History: Reports: Hx Cervical Cancer GI Medical History: Reports: Hx Gastroesophageal Reflux Disease. Denies: Hx Cirrhosis, Hx Hepatitis Musculoskeletal Medical History: Reports Hx Arthritis, Reports Hx Fibromyalgia, Reports Hx Musculoskeletal Deformity, Reports Hx Musculoskeletal Trauma Psychiatric Medical History: Reports: Hx Anxiety, Hx Depression Traumatic Medical History: Reports: Hx Fractures - Facial fractures bilateral toes elbow and left knee Infectious Medical History: Denies: Hx Hepatitis Past Surgical History: Reports: Hx Abdominal Surgery - hernia, Hx Section - 2, Hx Cholecystectomy, Hx Hysterectomy, Hx Orthopedic Surgery - bilateral toes and elbows left knee twice, Hx Tubal Ligation, Other - Ventral hernia and pseudocyst removal. Denies: Hx Appendectomy - Immunizations Immunizations up to date: Yes Hx Diphtheria, Pertussis, Tetanus Vaccination: Yes Review of Systems - Review of Systems Constitutional: No symptoms reported EENT: No symptoms reported Cardiovascular: See HPI Respiratory: No symptoms reported Gastrointestinal: No symptoms reported Musculoskeletal: No symptoms reported Neurological/Psychological: See HPI, Numbness -: Yes All other systems reviewed and negative Physical Exam - Vital signs Vitals: Pulse Ox 98 04/02/19 11:43 - General General appearance: Appears well, Alert In distress: None - HEENT Pupils: PERRL Mouth/Lips: Normal Mucous membranes: Normal Pharynx: Normal Neck: Normal - Respiratory Respiratory status: No respiratory distress Breath sounds: Normal - Cardiovascular Rhythm: Regular Heart sounds: Normal auscultation Murmur: No - Abdominal Bowel sounds: Normal Tenderness: Nontender - Extremities General upper extremity: Normal inspection General lower extremity: Normal inspection - Neurological Neuro grossly intact: Yes Cognition: Normal Orientation: AAOx4 Speech: Other - pt has some minimal slurring of speech (I do not know if this is old or new) Cranial nerves: Normal Cerebellar coordination: Normal Motor strength normal: LUE, RUE, LLE, RLE 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 - Vital Signs Vital signs: Temp Pulse Resp BP Pulse Ox 97.8 F 98 04/02/19 12:03 04/02/19 11:43 - Laboratory Result Diagrams: 04/02/19 11:55 11/01/19 11:55 Laboratory results interpreted by me: 04/02/19 04/02/19 11:53 11:55 Glucose 353 H POC Glucose 338 H - Diagnostic Test Radiology reviewed: Reports reviewed - ct head - no signs of new CVA - EKG Interpretation by Me EKG shows normal: Sinus rhythm Rate: Normal Rhythm: NSR - nsr without acute change Critical Care Note - Critical Care Note Total time excluding time spent on procedures (mins): 30 Discharge - Discharge Clinical Impression: Weakness, Palpitations, TIA (transient ischemic attack) Condition: Fair Disposition: ADMITTED OBSERVATION Admitting Provider: Jeane (Hospitalist) Unit Admitted: Telemetry Referrals: JACK SÁNCHEZ DO [Primary Care Provider] - Follow up as needed
[2019-04-02] MEDS ORDERED: ONDANSETRON HCL INJ/PF 4 MG/2 ML SDV IV ONE (14:13)
--- NOTE | 2019-04-02 14:34 | RADIOLOGY REPORT (SQ) ---
EXAM DESCRIPTION: CT HEAD WITHOUT COMPLETED DATE/TIME: 04/02/2019 2:14 pm REASON FOR STUDY: slurred speech COMPARISON: 02/18/2019 TECHNIQUE: Axial images acquired through the brain without intravenous contrast. Images reviewed wit h bone, brain and subdural windows. Images stored on PACS. All CT scanners at this facility use dose modulation, iterative reconstruction, and/or weight based d osing when appropriate to reduce radiation dose to as low as reasonably achievable (ALARA). [facility]: Dose Right [facility]: CareDose [facility]: Dose Right [facility]: Teradose 4D [facility]: Smart [employer] RADIATION DOSE: CT Rad equipment meets quality standard of care and radiation dose reduction techniq ues were employed. CTDIvol: 53.2 mGy. DLP: 991 mGy-cm.. LIMITATIONS: None. FINDINGS: VENTRICLES: Normal size and contour. CEREBRUM: No masses. No hemorrhage. No midline shift. Age appropriate white matter. No evidence for a cute infarction. CEREBELLUM: No masses. No hemorrhage. No alteration of density. No evidence for acute infarction. EXTRA-AXIAL SPACES: No fluid collections. ORBITS AND GLOBE: No intra- or extraconal masses. Normal contour of globe without masses. CALVARIUM: No fracture. PARANASAL SINUSES: No fluid or mucosal thickening. SOFT TISSUES: No mass or hematoma. OTHER: No other significant finding. IMPRESSION: NO ACUTE INTRACRANIAL FINDINGS. EVIDENCE OF ACUTE STROKE: NO. TECHNICAL DOCUMENTATION: JOB ID: [id number] Quality ID # [id number]: Final reports with documentation of one or more dose reduction techniques (e.g., Au tomated exposure control, adjustment of the mA and/or kV according to patient size, use of iterative reconstruction technique) 2010 [employer]- All Rights Reserved Reading location - IP/workstation name: [email or web address]
[2019-04-02] MEDS ORDERED: NORMAL SALINE 1000 ML 1,000 ML IV ONE (14:42)
[2019-04-02] MEDS ORDERED: GLUCAGON,HUMAN RECOMB 1 MG INJ SUBCUT PRN (15:21)
[2019-04-02] MEDS ORDERED: MAGNESIUM HYDROXIDE SUSP 30 ML UDCUP PO PRN (15:21)
[2019-04-02] MEDS ORDERED: DEXTROSE 40% GEL 15 GM TUBE PO PRN ×4 (15:21→15:42)
[2019-04-02] MEDS ORDERED: DEXTROSE 50%-WATER 25 GM/50 ML DISP.SYRIN IV PRN ×4 (15:21→15:42)
[2019-04-02] MEDS ORDERED: ONDANSETRON HCL INJ/PF 4 MG/2 ML SDV IV PRN (15:21)
[2019-04-02] MEDS ORDERED: GLUCAGON,HUMAN RECOMB 1 MG INJ IM PRN (15:42)
--- NOTE | 2019-04-02 15:50 | PDOC H&P ---
History of Present Illness Admission Date/PCP: 04/02/19 15:03 JACK SÁNCHEZ DO Patient complains of: Left-sided weakness History of Present Illness: ORLY OSEI is a 59 year old female who presented here on 11/18 with a CVA. Patient presents now with chest fluttering, facial droop and slurred speech. Patient currently taking aspirin and Plavix for stroke prophylaxis. Patient has left-sided residual and some expressive aphasia from previous stroke. Patient had no treatment prior to arrival no true aggravating factors. Past Medical History Cardiac Medical History: Reports: Hyperlipidema, Hypertension Pulmonary Medical History: Reports: Asthma Neurological Medical History: Reports: Migraine Endocrine Medical History: Reports: Diabetes Mellitus Type 2 Denies: Hyperthyroidism, Hypothyroidism Malignancy Medical History: Reports: Cervical Cancer GI Medical History: Reports: Gastroesophageal Reflux Disease Denies: Cirrhosis, Hepatitis Musculoskeltal Medical History: Reports: Arthritis, Fibromyalgia Psychiatric Medical History: Reports: Depression Past Surgical History Past Surgical History: Reports: Section - 2, Cholecystectomy, Hysterectomy, Orthopedic Surgery - bilateral toes and elbows left knee twice, Tubal Ligation, Other - Ventral hernia and pseudocyst removal Denies: Appendectomy Social History Information Source: Patient Lives with: Family Smoking Status: Never Smoker Electronic Cigarette use?: No Frequency of Alcohol Use: None Hx Recreational Drug Use: No Drugs: None Hx Prescription Drug Abuse: No - Advance Directive Resuscitation Status: Full Code Family History Family History: Arthritis, CVA, DM, Hyperlipidemia, Hypertension, Malignancy, Thyroid Disfunction Parental Family History Reviewed: Yes Children Family History Reviewed: Yes Sibling(s) Family History Reviewed.: Yes Medication/Allergy Home Medications: Insulin Degludec [Tresiba Flextouch U-100] 45 unit SQ DAILY 11/22/18 Quetiapine Fumarate [Seroquel 100 mg Tablet] 100 mg PO QHS 11/22/18 Clopidogrel Bisulfate [Plavix 75 mg Tablet] 75 mg PO DAILY #30 tablet 11/26/18 Aspirin [Ecotrin 81 mg EC Tablet] 81 mg PO DAILY 02/02/19 Insulin Aspart [Novolog Flexpen] See Protocol SUBCUT MEALS 02/02/19 Metoprolol Succinate [Toprol Xl 25 mg Tab.sr] 25 mg PO DAILY 02/02/19 Pantoprazole Sodium [Protonix [address] Tablet] 20 mg PO QAM 02/02/19 Acetaminophen [Acetaminophen Extra Strength] 1,500 mg PO BID 04/02/19 Hydrochlorothiazide 12.5 mg PO DAILY 04/02/19 Losartan Potassium 100 mg PO DAILY 04/02/19 Multivitamin [Daily Multiple Vitamin] 1 each PO DAILY 04/02/19 [place]-3 Fatty Acids/Fish Oil [[place] 3 Fish Oil Softgel] 1 each PO DAILY 04/02/19 Pregabalin 75 mg PO BID 04/02/19 Tumeric Curcumin 500 mg PO DAILY 04/02/19 Allergies/Adverse Reactions: Penicillins Allergy (Unknown, Verified 11/22/18 09:49) cephalexin monohydrate [From Keflex] Allergy (Verified 11/22/18 09:49) ciprofloxacin [From Cipro] Allergy (Verified 11/22/18 09:49) codeine Allergy (Verified 11/22/18 09:49) Iodinated Contrast Media [IV Dye, Iodine Containing] Allergy (Verified 11/22/18 09:49) latex [Latex] Allergy (Verified 11/22/18 09:49) metformin Allergy (Verified 11/22/18 09:49) nitrofurantoin macrocrystalline [From Macrodantin] Allergy (Verified 11/22/18 09:49) penicillin G Allergy (Verified 11/22/18 09:49) Sulfa (Sulfonamide Antibiotics) Allergy (Verified 11/22/18 09:49) tetracycline [Tetracycline] Allergy (Verified 11/22/18 09:49) nitroglycerin [From Nitrostat] Adverse Reaction (Verified 11/22/18 09:49) Review of Systems Constitutional: PRESENT: weakness. ABSENT: chills, fever(s), headache(s), weight gain, weight loss Eyes: ABSENT: visual disturbances Ears: ABSENT: hearing changes Nose, Mouth, and Throat: PRESENT: other - Slurred speech facial droop Cardiovascular: ABSENT: chest pain, dyspnea on exertion, edema, orthropnea, palpitations Respiratory: ABSENT: cough, hemoptysis Gastrointestinal: ABSENT: abdominal pain, constipation, diarrhea, hematemesis, hematochezia, nausea, vomiting Genitourinary: ABSENT: dysuria, hematuria Musculoskeletal: ABSENT: joint swelling Integumentary: ABSENT: rash, wounds Neurological: ABSENT: abnormal gait, abnormal speech, confusion, dizziness, focal weakness, syncope Psychiatric: ABSENT: anxiety, depression, homidical ideation, suicidal ideation Endocrine: ABSENT: cold intolerance, heat intolerance, polydipsia, polyuria Hematologic/Lymphatic: ABSENT: easy bleeding, easy bruising Physical Exam Vital Signs: Temp Pulse Resp BP Pulse Ox 97.8 F 98 04/02/19 12:03 04/02/19 11:43 Intake & Output 04/01/19 04/02/19 04/03/19 06:59 06:59 06:59 Weight 77.6 kg General appearance: PRESENT: no acute distress, well-developed, well-nourished Head exam: PRESENT: atraumatic, normocephalic Eye exam: PRESENT: conjunctiva pink, EOMI, PERRLA. ABSENT: scleral icterus Ear exam: PRESENT: normal external ear exam Mouth exam: PRESENT: moist, tongue midline Neck exam: ABSENT: carotid bruit, JVD, lymphadenopathy, thyromegaly Respiratory exam: PRESENT: clear to auscultation gerardo. ABSENT: rales, rhonchi, wheezes Cardiovascular exam: PRESENT: RRR. ABSENT: diastolic murmur, rubs, systolic murmur Pulses: PRESENT: normal dorsalis pedis pul Vascular exam: PRESENT: normal capillary refill GI/Abdominal exam: PRESENT: normal bowel sounds, soft. ABSENT: distended, guarding, mass, organolmegaly, rebound, tenderness Rectal exam: PRESENT: deferred Extremities exam: PRESENT: full ROM, other - Left-sided weakness. ABSENT: calf tenderness, clubbing, pedal edema Neurological exam: PRESENT: alert, awake, oriented to person, oriented to place, oriented to time, oriented to situation, CN II-XII grossly intact. ABSENT: motor sensory deficit Psychiatric exam: PRESENT: appropriate affect, normal mood. ABSENT: homicidal ideation, suicidal ideation Skin exam: PRESENT: dry, intact, warm. ABSENT: cyanosis, rash Results Laboratory Results: 04/02/19 11:55 04/02/19 11:55 04/02/19 04/02/19 11:55 11:55 WBC 5.4 RBC 5.12 Hgb 14.5 Hct 41.3 MCV 81 MCH 28.2 MCHC 35.0 RDW 13.3 Plt Count 208 Seg Neutrophils % 61.0 Sodium 138.5 Potassium 4.2 Chloride 100 Carbon Dioxide 28 Anion Gap 11 BUN 13 Creatinine 0.55 Est GFR ( Amer) > 60 Glucose 353 H Calcium 9.4 Total Bilirubin 0.6 AST 23 Alkaline Phosphatase 71 Total Protein 7.7 Albumin 4.7 04/02/19 04/02/19 11:55 11:55 Creatine Kinase 65 CK-MB (CK-2) 1.27 Troponin I < 0.012 Impressions: Head CT 04/02/19 13:35 IMPRESSION: NO ACUTE INTRACRANIAL FINDINGS. EVIDENCE OF ACUTE STROKE: NO. Assessment and Plan - Diagnosis (1) TIA (transient ischemic attack) Is this a current diagnosis for this admission?: Yes Plan: 04/02/2019-patient did have a stroke back in October of this year. Taking aspirin Plavix at home. At this time will obtain an MRI, echocardiogram, carotid Doppler, blood work for factor V Leyden, factor II, and other common causes for blood discrepancies. We will continue patient on aspirin and Plavix at this time. If patient shows any need for anticoagulation we will transition her to that therapy. Lipitor at 80 mg nightly. 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 Sliding scale insulin-adjust with a carbohydrate controlled diet. (3) Hypertension Qualifiers: Hypertension type: unspecified Qualified Code(s): I10 - Essential (primary) hypertension Is this a current diagnosis for this admission?: Yes Plan: 04/02/2019-continue home losartan and metoprolol (4) Neuropathy Is this a current diagnosis for this admission?: Yes Plan: 04/02/2019-continue Lyrica - Time Time Spent with patient: 15-24 minutes
[2019-04-02] MEDS: INSULIN REG, HUMAN 100 UNIT/ML 3 ML VIAL (PYX) SUBCUT SCH ×2 (16:33→21:38)
[2019-04-02] MEDS: PREGABALIN 75 MG CAPSULE PO SCH (17:31)
--- NOTE | 2019-04-02 18:07 | EKG REPORT ---
SEVERITY:- ABNORMAL ECG - SINUS RHYTHM ABNRM R PROG, CONSIDER ASMI OR LEAD PLACEMENT : Confirmed by: Rakesh Hernandez MD 02-Apr-2019 18:07:03
[2019-04-02] MEDS ORDERED: LORAZEPAM INJ 2 MG/1 ML VIAL IV ONE (19:30)
[2019-04-02] MEDS: ACETAMINOPHEN 325 MG TABLET PO PRN (19:43)
--- NOTE | 2019-04-02 21:00 | RADIOLOGY REPORT (SQ) ---
MR BRAIN WITHOUT IV CONTRAST EXAM DATE: 04/02/2019 12:00 AM CDT HISTORY: TIA. COMPARISON: None. TECHNIQUE: Multisequence, multiplanar MR imaging of the brain was performed without the administration of intravenous gadolinium. FINDINGS: The ventricles and sulci are normal in size. Scattered areas of T2/FLAIR hyperintense foci are seen in the supratentorial white matter, likely representing chronic microvascular ischemia. There is no acute infarction, intracranial hemorrhage, extra-axial fluid collection, or mass. The brainstem, posterior fossa, and cervicomedullary junction are preserved. The intravascular flow voids are preserved. The orbits are unremarkable. No abnormality of the skull base or calvarium is seen. The paranasal sinuses are clear. IMPRESSION: No acute infarction.
[2019-04-02] MEDS: HEPARIN SOD (PORCINE) 5,000 UNIT/ML 1 ML VIAL SUBCUT SCH (21:32)
[2019-04-02] MEDS: ATORVASTATIN CALCIUM 80 MG TABLET PO SCH (21:32)
[2019-04-02] MEDS: TEMAZEPAM 15 MG CAPSULE PO PRN (21:33)
--- NOTE | 2019-04-02 22:07 | RADIOLOGY REPORT (SQ) ---
EXAM DESCRIPTION: US CAROTID DOPPLER BILATERAL COMPLETED DATE/TME: 04/02/2019 15:25 CLINICAL HISTORY: 59 years, Female, tia COMPARISON: None. TECHNIQUE: Transverse longitudinal sonographic images of the cervical portions of the carotid arteries LIMITATIONS: None. FINDINGS: Imaging over the carotids shows minimal atheromatous plaque associated with the left carotid bifurcation and mild to moderate visible atheromatous plaque of the right carotid bifurcation. Antegrade flow in the vertebral arteries bilaterally. Velocities are as follows (in peak systolic velocity): Right side: CCA: 72 cm/s ICA: 138 cm/s Vertebral artery: 50 cm/s ECA: 99 cm/s Left side: CCA: 111 cm/s ICA: 77 cm/s proximal, 110 cm/s distal Vertebral artery: 95 cm/s ECA: 117 cm/s Right ICA/CCA ratio: 2.3. Left ICA to CCA ratio: 1.3 IMPRESSION: [id number] atheromatous plaque associated with the right carotid bifurcation. Findings correspond to 50-69% stenosis. Less than 50% stenosis on the left. copyright 2010 [employer]- All Rights Reserved
[2019-04-03 04:48] LABS: HEMATOCRIT 36.2 % (36.0-47.0); HEMOGLOBIN 12.7 g/dL (12.0-15.5); MEAN CORPUSCULAR HEMOGLOBIN 28.2 pg (27.0-33.4); MEAN CORPUSCULAR VOLUME 81 fl (80-97); PLATELET COUNT 191 10^3/uL (150-450); WHITE BLOOD COUNT 5.6 10^3/uL (4.0-10.5)
[2019-04-03 05:02] LABS: ANION GAP 6 (5-19); BLOOD UREA NITROGEN 14 mg/dL (7-20); CALCIUM 8.5 mg/dL (8.4-10.2); CARBON DIOXIDE 25 mmol/L (22-30); CHLORIDE 108 mmol/L (98-107); CHOLESTEROL 92.68 mg/dL (0-200); GLUCOSE 225 mg/dL (75-110); POTASSIUM 4.1 mmol/L (3.6-5.0); TRIGLYCERIDES 213 mg/dL (<150)
[2019-04-03 05:12] LABS: DIRECT LDL 41 mg/dL (<100)
[2019-04-03 05:13] LABS: VLDL CHOLESTEROL 42.6 mg/dL (10-31)
[2019-04-03] MEDS: HEPARIN SOD (PORCINE) 5,000 UNIT/ML 1 ML VIAL SUBCUT SCH ×3 (05:39→21:03)
[2019-04-03] MEDS: INSULIN REG, HUMAN 100 UNIT/ML 3 ML VIAL (PYX) SUBCUT SCH ×4 (08:11→23:14)
--- NOTE | 2019-04-03 08:48 | PDOC PROGRESS REPORT ---
Subjective Progress Note for:: 04/03/19 Subjective:: 04/03/2019-no complaints at this time Reason For Visit: TIA Physical Exam Vital Signs: Temp Pulse Resp BP Pulse Ox 98.0 F 76 20 139/71 H 93 04/03/19 07:28 04/03/19 08:00 04/03/19 08:00 04/03/19 08:00 04/03/19 08:00 Intake & Output 04/02/19 04/03/19 04/04/19 06:59 06:59 05:59 Intake Total 1000 Output Total 0 Balance 1000 Weight 81.5 kg General appearance: PRESENT: no acute distress, well-developed, well-nourished Neck exam: ABSENT: carotid bruit, JVD, lymphadenopathy, thyromegaly Respiratory exam: PRESENT: accessory muscle use Cardiovascular exam: PRESENT: RRR. ABSENT: diastolic murmur, rubs, systolic murmur Pulses: PRESENT: normal dorsalis pedis pul Vascular exam: PRESENT: normal capillary refill GI/Abdominal exam: PRESENT: normal bowel sounds, soft. ABSENT: distended, guarding, mass, organolmegaly, rebound, tenderness Extremities exam: PRESENT: other - Left-sided weakness Neurological exam: PRESENT: alert, awake, oriented to person, oriented to place, oriented to time, oriented to situation, CN II-XII grossly intact. ABSENT: motor sensory deficit Psychiatric exam: PRESENT: appropriate affect, normal mood. ABSENT: homicidal ideation, suicidal ideation Skin exam: PRESENT: dry, intact, warm. ABSENT: cyanosis, rash Results Laboratory Results: 04/03/19 04:13 04/03/19 04:13 04/02/19 04/02/19 04/03/19 11:55 11:55 04:13 WBC 5.4 5.6 RBC 5.12 4.50 Hgb 14.5 12.7 Hct 41.3 36.2 MCV 81 81 MCH 28.2 28.2 MCHC 35.0 35.0 RDW 13.3 13.0 Plt Count 208 191 Seg Neutrophils % 61.0 Sodium 138.5 Potassium 4.2 Chloride 100 Carbon Dioxide 28 Anion Gap 11 BUN 13 Creatinine 0.55 Est GFR ( Amer) > 60 Glucose 353 H Calcium 9.4 Total Bilirubin 0.6 AST 23 Alkaline Phosphatase 71 Total Protein 7.7 Albumin 4.7 Triglycerides Cholesterol LDL Cholesterol Direct VLDL Cholesterol HDL Cholesterol 04/03/19 04:13 WBC RBC Hgb Hct MCV MCH MCHC RDW Plt Count Seg Neutrophils % Sodium 139.1 Potassium 4.1 Chloride 108 H Carbon Dioxide 25 Anion Gap 6 BUN 14 Creatinine 0.47 L Est GFR ( Amer) > 60 Glucose 225 H Calcium 8.5 Total Bilirubin AST Alkaline Phosphatase Total Protein Albumin Triglycerides 213 H Cholesterol 92.68 LDL Cholesterol Direct 41 VLDL Cholesterol 42.6 H HDL Cholesterol 30 L 04/02/19 04/02/19 04/02/19 11:55 11:55 16:50 Creatine Kinase 65 CK-MB (CK-2) 1.27 Troponin I < 0.012 < 0.012 Impressions: Head MRI 04/02/19 00:00 IMPRESSION: No acute infarction. Head CT 04/02/19 13:35 IMPRESSION: NO ACUTE INTRACRANIAL FINDINGS. EVIDENCE OF ACUTE STROKE: NO. Carotid Doppler Study 04/02/19 15:25 IMPRESSION: [id number] atheromatous plaque associated with the right carotid bifurcation. Findings correspond to 50-69% stenosis. Less than 50% stenosis on the left. copyright 2010 [employer]- All Rights Reserved Assessment and Plan - Diagnosis (1) TIA (transient ischemic attack) Is this a current diagnosis for this admission?: Yes Plan: 04/02/2019-patient did have a stroke back in October of this year. Taking aspirin Plavix at home. At this time will obtain an MRI, echocardiogram, carotid Doppler, blood work for factor V Leyden, factor II, and other common causes for blood discrepancies. We will continue patient on aspirin and Plavix at this time. If patient shows any need for anticoagulation we will transition her to that therapy. Lipitor at 80 mg nightly. 04/03/2019-at this time MRI is negative carotid Doppler does show mild to moderate plaque. Continue current therapy will recommend interventional radiology on an outpatient basis to evaluate stenosis and possible intervention. Also awaiting laboratory database for blood dyscrasias. 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 Sliding scale insulin-adjust with a carbohydrate controlled diet. 04/03/2019-A1c is 11.1. Patient will need to follow-up with her coat checker on outpatient basis. (3) Hypertension Qualifiers: Hypertension type: unspecified Qualified Code(s): I10 - Essential (primary) hypertension Is this a current diagnosis for this admission?: Yes Plan: 04/02/2019-continue home losartan and metoprolol 04/03/2019-stable continue to follow (4) Neuropathy Is this a current diagnosis for this admission?: Yes Plan: 04/02/2019-continue Lyrica 04/03/2019-continue Lyrica - Time Time Spent with patient: 15-24 minutes
[2019-04-03] MEDS: PREGABALIN 75 MG CAPSULE PO SCH ×2 (09:31→17:15)
[2019-04-03] MEDS ORDERED: METOPROLOL SUCCINATE 25 MG TAB.SR.24H PO SCH (10:00)
[2019-04-03] MEDS ORDERED: CLOPIDOGREL BISULFATE 75 MG TABLET PO SCH (10:00)
[2019-04-03] MEDS ORDERED: ASPIRIN 81 MG TABLET, ENT COATED PO SCH ×2 (10:00)
[2019-04-03] MEDS ORDERED: (PENDING PHARMACY ID) (Losartan Potassium [Losartan Potassium] 100 MG) PO SCH (10:00)
[2019-04-03] MEDS ORDERED: LOSARTAN POTASSIUM 50 MG TABLET PO SCH (10:00)
[2019-04-03] MEDS ORDERED: INSULIN DEGLUDEC 45 UNIT SUBCUT SCH (10:00)
[2019-04-03] MEDS: ACETAMINOPHEN 325 MG TABLET PO PRN ×2 (11:57→20:05)
[2019-04-03] MEDS: ATORVASTATIN CALCIUM 80 MG TABLET PO SCH (21:03)
[2019-04-03] MEDS: TEMAZEPAM 15 MG CAPSULE PO PRN (21:06)
[2019-04-04] MEDS: HEPARIN SOD (PORCINE) 5,000 UNIT/ML 1 ML VIAL SUBCUT SCH (05:14)
[2019-04-04] MEDS: INSULIN REG, HUMAN 100 UNIT/ML 3 ML VIAL (PYX) SUBCUT SCH (08:06)
--- NOTE | 2019-04-04 08:09 | PDOC DISCHARGE SUMMARY ---
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 Is this a current diagnosis for this admission?: Yes (3) Hypertension Is this a current diagnosis for this admission?: Yes (4) Neuropathy Is this a current diagnosis for this admission?: Yes - Additional Information Resuscitation Status: Full Code Discharge Diet: As Tolerated Discharge Activity: Activity As Tolerated Referrals: JACK SÁNCHEZ DO [Primary Care Provider] - Follow up as needed Home Medications: Insulin Degludec [Tresiba Flextouch U-100] 45 unit SQ DAILY 11/22/18 Quetiapine Fumarate [Seroquel 100 mg Tablet] 100 mg PO QHS 11/22/18 Clopidogrel Bisulfate [Plavix 75 mg Tablet] 75 mg PO DAILY #30 tablet 11/26/18 Aspirin [Ecotrin 81 mg EC Tablet] 81 mg PO DAILY 02/02/19 Insulin Aspart [Novolog Flexpen] See Protocol SUBCUT MEALS 02/02/19 Metoprolol Succinate [Toprol Xl 25 mg Tab.sr] 25 mg PO DAILY 02/02/19 Pantoprazole Sodium [Protonix [address] Tablet] 20 mg PO QAM 02/02/19 Acetaminophen [Acetaminophen Extra Strength] 1,500 mg PO BID 04/02/19 Hydrochlorothiazide 12.5 mg PO DAILY 04/02/19 Losartan Potassium 100 mg PO DAILY 04/02/19 Multivitamin [Daily Multiple Vitamin] 1 each PO DAILY 04/02/19 [place]-3 Fatty Acids/Fish Oil [[place] 3 Fish Oil Softgel] 1 each PO DAILY 04/02/19 Pregabalin 75 mg PO BID 04/02/19 Tumeric Curcumin 500 mg PO DAILY 04/02/19 Aspirin [Ecotrin 81 mg EC Tablet] 81 mg PO DAILY tabec 04/04/19 History of Present Illiness History of Present Illness: ORLY OSEI is a 59 year old female who presented here on 11/18 with a CVA. Patient presents now with chest fluttering, facial droop and slurred speech. Patient currently taking aspirin and Plavix for stroke prophylaxis. Patient has left-sided residual and some expressive aphasia from previous stroke. Patient had no treatment prior to arrival no true aggravating factors. Hospital Course Hospital Course: Patient presented to emergency department on 04/02/2019 with strokelike symptoms. Patient had a previous stroke and October 2018 with some residual left-sided weakness and expressive aphasia. Patient was in the ER with chest fluttering, right facial droop and slurred speech. Patient was never found to have atrial fibrillation and was currently taking Plavix and aspirin. At this time patient is improved patient return home. I did work patient up for various blood this dyscrasia for which I will have her follow-up with primary care practitioner for results. Patient also requires tighter control of her blood sugars which her A1c on admission was 11.1. I will leave this up to her primary care practitioner for further expertise. Patient is in agreement with plan of care. Patient will follow-up primary care in 1 week. Physical Exam Vital Signs: Temp Pulse Resp BP Pulse Ox 98.0 F 74 16 138/71 H 93 04/04/19 07:55 04/04/19 07:55 04/04/19 07:55 04/04/19 07:55 04/04/19 07:55 Intake & Output 04/03/19 04/04/19 04/05/19 07:59 06:59 06:59 Intake Total Output Total Balance Weight General appearance: PRESENT: no acute distress, well-developed, well-nourished Head exam: PRESENT: atraumatic, normocephalic Eye exam: PRESENT: conjunctiva pink, EOMI, PERRLA. ABSENT: scleral icterus Ear exam: PRESENT: normal external ear exam Mouth exam: PRESENT: moist, tongue midline Neck exam: ABSENT: carotid bruit, JVD, lymphadenopathy, thyromegaly Respiratory exam: PRESENT: clear to auscultation gerardo. ABSENT: rales, rhonchi, wheezes Cardiovascular exam: PRESENT: RRR. ABSENT: diastolic murmur, rubs, systolic murmur Pulses: PRESENT: normal dorsalis pedis pul Vascular exam: PRESENT: normal capillary refill GI/Abdominal exam: PRESENT: normal bowel sounds, soft. ABSENT: distended, guarding, mass, organolmegaly, rebound, tenderness Rectal exam: PRESENT: deferred Extremities exam: PRESENT: full ROM, other - Slight left-sided weakness. ABSENT: calf tenderness, clubbing, pedal edema Neurological exam: PRESENT: alert, awake, oriented to person, oriented to place, oriented to time, oriented to situation, CN II-XII grossly intact. ABSENT: motor sensory deficit Psychiatric exam: PRESENT: appropriate affect, normal mood. ABSENT: homicidal ideation, suicidal ideation Skin exam: PRESENT: dry, intact, warm. ABSENT: cyanosis, rash Results Laboratory Results: WBC 5.6 10^3/uL (4.0-10.5) 04/03/19 04:13 RBC 4.50 10^6/uL (3.72-5.28) 04/03/19 04:13 Hgb 12.7 g/dL (12.0-15.5) 04/03/19 04:13 Hct 36.2 % (36.0-47.0) 04/03/19 04:13 MCV 81 fl (80-97) 04/03/19 04:13 MCH 28.2 pg (27.0-33.4) 04/03/19 04:13 MCHC 35.0 g/dL (32.0-36.0) 04/03/19 04:13 RDW 13.0 % (11.5-14.0) 04/03/19 04:13 Plt Count 191 10^3/uL (150-450) 04/03/19 04:13 Lymph % (Auto) 29.8 % (13-45) 04/02/19 11:55 [place] % (Auto) 6.6 % (3-13) 04/02/19 11:55 Eos % (Auto) 2.0 % (0-6) 04/02/19 11:55 Baso % (Auto) 0.6 % (0-2) 04/02/19 11:55 Absolute Neuts (auto) 3.3 10^3/uL (1.7-8.2) 04/02/19 11:55 Absolute Lymphs (auto) 1.6 10^3/uL (0.5-4.7) 04/02/19 11:55 Absolute Monos (auto) 0.4 10^3/uL (0.1-1.4) 04/02/19 11:55 Absolute Eos (auto) 0.1 10^3/uL (0.0-0.6) 04/02/19 11:55 Absolute Basos (auto) 0.0 10^3/uL (0.0-0.2) 04/02/19 11:55 Seg Neutrophils % 61.0 % (42-78) 04/02/19 11:55 Sodium 139.1 mmol/L (137-145) 04/03/19 04:13 Potassium 4.1 mmol/L (3.6-5.0) 04/03/19 04:13 Chloride 108 mmol/L (98-107) H 04/03/19 04:13 Carbon Dioxide 25 mmol/L (22-30) 04/03/19 04:13 Anion Gap 6 (5-19) 04/03/19 04:13 BUN 14 mg/dL (7-20) 04/03/19 04:13 Creatinine 0.47 mg/dL (0.52-1.25) L 04/03/19 04:13 Est GFR ( Amer) > 60 (>60) 04/03/19 04:13 Est GFR (MDRD) Non-Af > 60 (>60) 04/03/19 04:13 Glucose 225 mg/dL (75-110) H 04/03/19 04:13 POC Glucose 316 mg/dL (70-110) H 04/04/19 07:24 Hemoglobin A1c % 11.1 % (4.7-6.0) H 04/03/19 04:13 Calcium 8.5 mg/dL (8.4-10.2) 04/03/19 04:13 Total Bilirubin 0.6 mg/dL (0.2-1.3) 04/02/19 11:55 Direct Bilirubin 0.2 mg/dL (0.0-0.4) 04/02/19 11:55 Neonat Total Bilirubin Not Reportable 04/02/19 11:55 Neonat Direct Bilirubin Not Reportable 04/02/19 11:55 Neonat Indirect Bili Not Reportable 04/02/19 11:55 AST 23 U/L (14-36) 04/02/19 11:55 ALT 28 U/L (<35) 04/02/19 11:55 Alkaline Phosphatase 71 U/L (38-126) 04/02/19 11:55 Creatine Kinase 65 U/L (30-135) 04/02/19 11:55 CK-MB (CK-2) 1.27 ng/mL (<4.55) 04/02/19 11:55 Troponin I < 0.012 ng/mL 04/02/19 16:50 Total Protein 7.7 g/dL (6.3-8.2) 04/02/19 11:55 Albumin 4.7 g/dL (3.5-5.0) 04/02/19 11:55 Triglycerides 213 mg/dL (<150) H 04/03/19 04:13 Cholesterol 92.68 mg/dL (0-200) 04/03/19 04:13 LDL Cholesterol Direct 41 mg/dL (<100) 04/03/19 04:13 VLDL Cholesterol 42.6 mg/dL (10-31) H 04/03/19 04:13 HDL Cholesterol 30 mg/dL (>40) L 04/03/19 04:13 04/02/19 04/02/19 11:55 16:50 CK-MB (CK-2) 1.27 Troponin I < 0.012 < 0.012 Impressions: Head MRI 04/02/19 00:00 IMPRESSION: No acute infarction. Head CT 04/02/19 13:35 IMPRESSION: NO ACUTE INTRACRANIAL FINDINGS. EVIDENCE OF ACUTE STROKE: NO. Carotid Doppler Study 04/02/19 15:25 IMPRESSION: [id number] atheromatous plaque associated with the right carotid bifurcation. Findings correspond to 50-69% stenosis. Less than 50% stenosis on the left. copyright 2010 [employer]- All Rights Reserved Plan Time Spent: Greater than 30 Minutes Stroke Is this a Stroke Patient?: No Acute Heart Failure - Is this a Heart Failure Patient?: No
[2019-04-04 08:14] VITALS: BP 114/72
--- NOTE | 2019-04-04 11:57 | XCELERA REPORT ---
[address] [address] Transthoracic Echocardiogram Report Name: ORLY OSEI Age: 59 yrs Gender: Female : 1960 Patient Status: Inpatient Patient Location: [address] [place] [address] Study Date: 04/02/2019 09:06 PM Height: 65 in Weight: 171 lb BSA: 1.9 m2 Procedure: A two-dimensional transthoracic echocardiogram with color flow and Doppler was performed. Images were not obtained from all of the standard acoustic windows due to the limited scope of the study. Reason For Study: tia History: TIA. Ordering Physician: DENIZ SHEIKH Performed By: Analy Aranda Interpretation Summary There is no obvious cardiac source of embolus noted on this transthoracic echocardiogram. Follow-up with a CASSIE is suggested if cardiac source is still suspected. Images were not obtained from all of the standard acoustic windows due to the limited scope of the study. The left ventricle is normal in size. There is mild asymmetric left ventricular hypertrophy. There is no 'GLENNA' or LVOT obstruction.Hence no HOCM or IHSS. No True apical 2 chamber views obtained.Hence cannot comment on the apical anterior , the basal anterior, the basal inferior and apical inferior nieves.The mid anterior , the mid inferior and the rest of the LV nieves contract normally. .LVEF is normal and is greater than 65% in the limited views. Doppler measurements suggest normal left ventricular diastolic function Cannot assess ASD,VSD , or PFO . Right atrium not well visualized secondary to technical limitations The left atrial size is normal. There is no evidence of mitral valve prolapse. There is no vegetation seen on the mitral valve. There is no mitral valve stenosis. There is a trace amount of mitral regurgitation There is no aortic valvular vegetation. There is no aortic valve stenosis No aortic regurgitation is present. There is no tricuspid stenosis. There is a trace amount of tricuspid regurgitation No significant pulmonary hypertension.RVSP is 31 mm of Hg , with RA mean of 10. There is no pulmonic valvular stenosis. There is no pulmonic valvular regurgitation. The aortic root is normal size. The inferior vena cava was not well visualized There is no pericardial effusion. There is no obvious cardiac source of embolus noted on this transthoracic echocardiogram. Follow-up with a CASSIE is suggested if cardiac source is still suspected MMode/2D Measurements & Calculations RVDd: 2.6 cm LVIDd: 3.9 cm FS: 35.6 % Ao root diam: 2.4 cm IVSd: 1.3 cm LVIDs: 2.5 cm EDV(Teich): 64.9 ml Ao root area: 4.7 cm2 LVPWd: 1.0 cm ESV(Teich): 22.2 ml LA dimension: 3.5 cm EF(Teich): 65.8 % Doppler Measurements & Calculations MV E max vickie: MV P1/2t max vickie: Ao V2 max: LV V1 max P.8 cm/sec 111.3 cm/sec 149.3 cm/sec 5.1 mmHg MV A max vickie: MV P1/2t: 50.1 msec Ao max P.9 mmHgLV V1 max: 94.3 cm/sec MVA(P1/2t): 4.4 cm2 112.5 cm/sec MV E/A: 1.0 MV dec slope: 650.5 cm/sec2 MV dec time: 0.23 sec PA V2 max: TR max vickie: MV P1/2t-pr_phl: 131.7 cm/sec 229.0 cm/sec 50.1 msec PA max PG: TR max P.0 mmHg 6.9 mmHg Left Ventricle The left ventricle is normal in size. There is mild asymmetric left ventricular hypertrophy. There is no 'GLENNA' or LVOT obstruction.Hence no HOCM or IHSS. No True apical 2 chamber views obtained.Hence cannot comment on the apical anterior , the basal anterior, the basal inferior and apical inferior nieves.The mid anterior , the mid inferior and the rest of the LV nieves contract normally. .LVEF is normal and is greater than 65% in the limited views. Doppler measurements suggest normal left ventricular diastolic function. Cannot assess ASD,VSD , or PFO . Right Ventricle The right ventricle is not well visualized secondary to technical limitations. Atria Right atrium not well visualized secondary to technical limitations. The left atrial size is normal. Mitral Valve There is no evidence of mitral valve prolapse. There is no vegetation seen on the mitral valve. There is no mitral valve stenosis. There is a trace amount of mitral regurgitation. Aortic Valve There is no aortic valvular vegetation. There is no aortic valve stenosis. No aortic regurgitation is present. Tricuspid Valve There is no tricuspid stenosis. There is a trace amount of tricuspid regurgitation. No significant pulmonary hypertension.RVSP is 31 mm of Hg , with RA mean of 10. Pulmonic Valve There is no pulmonic valvular stenosis. There is no pulmonic valvular regurgitation. Great Vessels The aortic root is normal size. The inferior vena cava was not well visualized. Effusions There is no pericardial effusion. : DENIZ SHEIKH Lakshmi
[2019-04-05 12:36] LABS: ANTICHROMATIN AB <0.2 AI (0.0-0.9); CENTROMERE B AB <0.2 AI (0.0-0.9); JO-1 ANTIBODY (ANACOMP) <0.2 AI (0.0-0.9); SJOGREN'S ANTI-SS-B AB <0.2 AI (0.0-0.9); SJOGREN'S SS-A ANTIBODY <0.2 AI (0.0-0.9)
[2019-04-06 07:05] LABS: DNA DOUBLE STRAND ANTIBODY ANA 3 IU/mL (0-9)
== END 2019-04-04 09:27 | disposition home or self-care (01) ==
LOC: ER 11:39 → EH 15:03 → 3W 17:14
PROVIDERS: ADMIT Hospitalist; ATTEND Hospitalist
DX: G45.9 Transient cerebral ischemic attack, unspecified (principal); E10.49 Type 1 diabetes mellitus with other diabetic neurological complication; E10.40 Type 1 diabetes mellitus with diabetic neuropathy, unspecified; I10 Essential (primary) hypertension; D75.9 Disease of blood and blood-forming organs, unspecified; I69.354 Hemiplegia and hemiparesis following cerebral infarction affecting left non-dominant side; I69.320 Aphasia following cerebral infarction; R00.2 Palpitations; Z79.82 Long term (current) use of aspirin; Z79.899 Other long term (current) drug therapy; Z79.02 Long term (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 of antithrombotics/antiplatelets; Z85.41 Personal history of malignant neoplasm of cervix uteri; Z90.49 Acquired absence of other specified parts of digestive tract; Z82.49 Family history of ischemic heart disease and other diseases of the circulatory system; Z82.3 Family history of stroke
CPT/HCPCS: 93005; 99291; 96361; 96374; 36415 ×2; 82553; 82962 ×3; 82550; 85025; 85027; 86038; 80048; 80053; 85210; 84484; 83036; 81241; 85597; 85598; 85613 ×2; 85730; 85732 ×3; 86147 ×3; 86148 ×2; 86849 ×2; 86146 ×3; 80061; 86225; 86235 ×8; 93306; 93880; 70551; 70450; 93010; 97530; 97161; G0378 ×4; J1644 ×2; J3490 ×5; J2060; J1815 ×3; J2405 ×2; J7030

== ENCOUNTER 2019-05-04 07:29 | Observation (INO) | payer OTHER ==
[2019-05-04 07:53] LABS: ABSOLUTE EOSINOPHILS # (AUTO) 0.1 10^3/uL (0.0-0.6); ABSOLUTE LYMPHOCYTES (AUTO) 1.7 10^3/uL (0.5-4.7); ABSOLUTE MONOCYTES (AUTO) 0.5 10^3/uL (0.1-1.4); ABSOLUTE NEUT (AUTO) 3.2 10^3/uL (1.7-8.2); BASOPHILS % (AUTO) 0.8 % (0-2); EOSINOPHILS % (AUTO) 2.6 % (0-6); HEMATOCRIT 43.6 % (36.0-47.0); HEMOGLOBIN 14.8 g/dL (12.0-15.5); LYMPHOCYTES % (AUTO) 30.6 % (13-45); MEAN CORPUSCULAR HEMOGLOBIN 27.9 pg (27.0-33.4); MEAN CORPUSCULAR VOLUME 82 fl (80-97); MONOCYTES % (AUTO) 8.6 % (3-13); PLATELET COUNT 213 10^3/uL (150-450); RED BLOOD COUNT 5.32 10^6/uL (3.72-5.28); RED CELL DISTRIBUTION WIDTH 14.1 % (11.5-14.0); SEGMENTED NEUTROPHILS % (AUTO) 57.4 % (42-78); TOTAL CELLS COUNTED % (AUTO) 100 %; WHITE BLOOD COUNT 5.6 10^3/uL (4.0-10.5)
[2019-05-04 08:06] LABS: ALBUMIN 4.8 g/dL (3.5-5.0); ALKALINE PHOSPHATASE 78 U/L (38-126); ANION GAP 12 (5-19); ASPARTATE AMINO TRANSFERASE 27 U/L (14-36); BILIRUBIN,DIRECT 0.2 mg/dL (0.0-0.4); BILIRUBIN,TOTAL 0.7 mg/dL (0.2-1.3); BLOOD UREA NITROGEN 11 mg/dL (7-20); CALCIUM 9.9 mg/dL (8.4-10.2); CARBON DIOXIDE 28 mmol/L (22-30); CHLORIDE 98 mmol/L (98-107); POTASSIUM 4.1 mmol/L (3.6-5.0)
[2019-05-04 08:16] LABS: GLUCOSE 474 mg/dL (75-110)
[2019-05-04 08:32] LABS: APPEARANCE,URINE CLEAR; BILIRUBIN,URINE NEGATIVE (NEGATIVE); COLOR,URINE STRAW; GLUCOSE, URINE >=500 mg/dL (NEGATIVE); KETONES,URINE TRACE mg/dL (NEGATIVE); LEUKOCYTE ESTERASE,URINE TRACE (NEGATIVE); NITRITE,URINE NEGATIVE (NEGATIVE); PROTEIN,URINE NEGATIVE (NEGATIVE); URINE SPECIFIC GRAVITY 1.035; UROBILINOGEN,URINE NEGATIVE mg/dL (<2.0)
[2019-05-04] MEDS ORDERED: NORMAL SALINE 1000 ML 1,000 ML IV ONE (09:32)
[2019-05-04] MEDS ORDERED: NORMAL SALINE 250 ML IV ONE (09:32)
--- NOTE | 2019-05-04 10:33 | RADIOLOGY REPORT (SQ) ---
EXAM DESCRIPTION: CHEST SINGLE VIEW COMPLETED DATE/TIME: 05/04/2019 10:10 am REASON FOR STUDY: htn COMPARISON: 02/02/2019 NUMBER OF VIEWS: One view. TECHNIQUE: Single frontal radiographic view of the chest acquired. LIMITATIONS: None. FINDINGS: LUNGS AND PLEURA: Low lung volumes. No opacities, masses or pneumothorax. No pleural eff usion. MEDIASTINUM AND HILAR STRUCTURES: No masses. No contour abnormality. HEART AND VASCULAR STRUCTURES: Normal size. No evidence for failure. BONES: No acute findings. HARDWARE: None in the chest. OTHER: No other significant finding. IMPRESSION: LOW LUNG VOLUMES. NO SIGNIFICANT RADIOGRAPHIC FINDING IN THE CHEST. TECHNICAL DOCUMENTATION: JOB ID: [id number] [employer]- All Rights Reserved Reading location - IP/workstation name: [email or web address]
[2019-05-04] MEDS ORDERED: METOCLOPRAMIDE HCL INJ/PF 10 MG/2 ML SDV IV ONE (10:34)
[2019-05-04] MEDS ORDERED: DIPHENHYDRAMINE HCL 50 MG/ML VIAL IV ONE (10:35)
--- NOTE | 2019-05-04 10:49 | RADIOLOGY REPORT (SQ) ---
EXAM DESCRIPTION: CT HEAD WITHOUT COMPLETED DATE/TIME: 05/04/2019 10:40 am REASON FOR STUDY: left side weakness COMPARISON: 04/02/2019 TECHNIQUE: Axial images acquired through the brain without intravenous contrast. Images reviewed wi th bone, brain and subdural windows. Additional sagittal and coronal reconstructions were generated. Images stored on PACS. All CT scanners at this facility use dose modulation, iterative reconstruction, and/or weight based d osing when appropriate to reduce radiation dose to as low as reasonably achievable (ALARA). [facility]: Dose Right [facility]: CareDose [facility]: Dose Right [facility]: Teradose 4D [facility]: American Well RADIATION DOSE: CT Rad equipment meets quality standard of care and radiation dose reduction techniq ues were employed. CTDIvol: 53.2 mGy. DLP: 1044 mGy-cm. mGy. LIMITATIONS: None. FINDINGS: VENTRICLES: Normal size and contour. CEREBRUM: No masses. No hemorrhage. No midline shift. No evidence for acute infarction. Normal gra y/white matter differentiation. No areas of low density in the white matter. CEREBELLUM: No masses. No hemorrhage. No alteration of density. No evidence for acute infarction. EXTRAAXIAL SPACES: No fluid collections. No masses. ORBITS AND GLOBE: No intra- or extraconal masses. Normal contour of globe without masses. CALVARIUM: No fracture. PARANASAL SINUSES: No fluid or mucosal thickening. SOFT TISSUES: No mass or hematoma. OTHER: No other significant finding. IMPRESSION: NORMAL BRAIN CT WITHOUT CONTRAST. EVIDENCE OF ACUTE STROKE: NO. COMMENT: Quality ID # [id number]: Final reports with documentation of one or more dose reduction techniques (e.g., Automated exposure control, adjustment of the mA and/or kV according to patient size, use of iterative reconstruction technique) TECHNICAL DOCUMENTATION: JOB ID: [id number] [employer]- All Rights Reserved Reading location - IP/workstation name: [email or web address]
[2019-05-04] MEDS ORDERED: INSULIN REG, HUMAN 100 UNIT/ML 3 ML VIAL (PYX) IV ONE (12:15)
--- NOTE | 2019-05-04 13:08 | ER Document Report ---
ED General - General Chief Complaint: High Blood Sugar Stated Complaint: BLOOD SUGAR ISSUES Time Seen by Provider: 05/04/19 08:14 Notes: 59 year old female with htn, dm, ? gastroparesis and cvd is here with increased left sided weakness - normally weak from cva in 11/18 - and nausea with vomiting since last eveing. No fever and no urinary symptoms. No chest pain and no sob. TRAVEL OUTSIDE OF THE [place] IN LAST 30 DAYS: No - HPI Onset/Duration: Gradual Quality of pain: Achy, Burning Severity: Moderate Pain Level: 2 Associated symptoms: Nausea, Vomiting Relieved by: Denies Similar symptoms previously: Yes Recently seen / treated by doctor: No - Related Data Allergies/Adverse Reactions: Penicillins Allergy (Unknown, Verified 11/22/18 09:49) cephalexin monohydrate [From Keflex] Allergy (Verified 11/22/18 09:49) ciprofloxacin [From Cipro] Allergy (Verified 11/22/18 09:49) codeine Allergy (Verified 11/22/18 09:49) Iodinated Contrast Media [IV Dye, Iodine Containing] Allergy (Verified 11/22/18 09:49) latex [Latex] Allergy (Verified 11/22/18 09:49) metformin Allergy (Verified 11/22/18 09:49) nitrofurantoin macrocrystalline [From Macrodantin] Allergy (Verified 11/22/18 09:49) penicillin G Allergy (Verified 11/22/18 09:49) Sulfa (Sulfonamide Antibiotics) Allergy (Verified 11/22/18 09:49) tetracycline [Tetracycline] Allergy (Verified 11/22/18 09:49) nitroglycerin [From Nitrostat] Adverse Reaction (Verified 11/22/18 09:49) Past Medical History - Social History Smoking Status: Unknown if Ever Smoked Family History: Arthritis, CVA, DM, Hyperlipidemia, Hypertension, Malignancy, Thyroid Disfunction Patient has suicidal ideation: No Patient has homicidal ideation: No - Past Medical History Cardiac Medical History: Reports: Hx Hypercholesterolemia, Hx Hypertension Pulmonary Medical History: Reports: Hx Asthma Neurological Medical History: Reports: Hx Cerebrovascular Accident, Hx Migraine Endocrine Medical History: Reports: Hx Diabetes Mellitus Type 1, Hx Diabetes M ellitus Type 2. Denies: Hx Hyperthyroidism, Hx Hypothyroidism Renal/ Medical History: Denies: Hx Peritoneal Dialysis Malignancy Medical History: Reports: Hx Cervical Cancer GI Medical History: Reports: Hx Gastroesophageal Reflux Disease. Denies: Hx Cirrhosis, Hx Hepatitis Musculoskeletal Medical History: Reports Hx Arthritis, Reports Hx Fibromyalgia, Reports Hx Musculoskeletal Deformity, Reports Hx Musculoskeletal Trauma Psychiatric Medical History: Reports: Hx Anxiety, Hx Depression Traumatic Medical History: Reports: Hx Fractures - Facial fractures bilateral toes elbow and left knee Infectious Medical History: Denies: Hx Hepatitis Past Surgical History: Reports: Hx Abdominal Surgery - hernia, Hx Section - 2, Hx Cholecystectomy, Hx Hysterectomy, Hx Orthopedic Surgery - bilat eral toes and elbows left knee twice, Hx Tubal Ligation, Other - Ventral hernia and pseudocyst removal. Denies: Hx Appendectomy - Immunizations Immunizations up to date: Yes Hx Diphtheria, Pertussis, Tetanus Vaccination: Yes Review of Systems - Review of Systems Constitutional: No symptoms reported EENT: No symptoms reported Cardiovascular: No symptoms reported Respiratory: No symptoms reported Gastrointestinal: See HPI, Nausea, Vomiting. denies: No symptoms reported Genitourinary: No symptoms reported Female Genitourinary: No symptoms reported Musculoskeletal: No symptoms reported Skin: No symptoms reported Hematologic/Lymphatic: No symptoms reported Neurological/Psychological: No symptoms reported Physical Exam - Vital signs Vitals: Temp Resp BP Pulse Ox 98.0 F 19 138/80 H 97 05/04/19 07:40 05/04/19 07:40 05/04/19 07:40 05/04/19 07:40 Interpretation: Normal - General General appearance: Appears well, Alert - HEENT Head: Normocephalic - dry mucus membranes, Atraumatic Eyes: Normal Pupils: PERRL - Respiratory Respiratory status: No respiratory distress Chest status: Nontender Breath sounds: Normal Chest palpation: Normal - Cardiovascular Rhythm: Regular Heart sounds: Normal auscultation Murmur: No - Abdominal Inspection: Normal Distension: No distension Bowel sounds: Normal Tenderness: Nontender Organomegaly: No organomegaly - Back Back: Normal, Nontender - Extremities General upper extremity: Normal inspection, Nontender, Normal color, Normal ROM, Normal temperature General lower extremity: Normal inspection, Nontender, Normal color, Normal ROM, Normal temperature, Normal weight bearing. No: Yoel's sign - Neurological Neuro grossly intact: Yes Cognition: Normal Orientation: AAOx4 Conklin Coma Scale Eye Opening: Spontaneous Conklin Coma Scale Verbal: Oriented Conklin Coma Scale Motor: Obeys Commands Naren Coma Scale Total: 15 Speech: Normal Motor strength normal: LUE, RUE, LLE, RLE Sensory: Normal - Psychological Associated symptoms: Normal affect, Normal mood - Skin Skin Temperature: Warm Skin Moisture: Dry Skin Color: Normal Course - Re-evaluation Re-evalutation: 05/04/19 13:13 mdm 59 year old with multiple comorbidities - htn, dm, cva, left side weakness, hld, ? gastroparesis is here with nausea and vomiting and persistent nausea. Unable to tolerate po at this time. No fever or chills. I have spoken with the hospitalist team and they have graciously agreed to see and evaluate for admission. - Vital Signs Vital signs: Temp Pulse Resp BP Pulse Ox 98.0 F 15 140/78 H 97 05/04/19 07:40 05/04/19 14:00 05/04/19 13:00 05/04/19 14:00 - Laboratory Result Diagrams: 05/04/19 07:00 05/04/19 07:00 Laboratory results interpreted by me: 05/04/19 05/04/19 05/04/19 07:00 07:00 07:33 RBC 5.32 H RDW 14.1 H Glucose 474 H* POC Glucose 420 H* Urine Glucose (UA) Urine Ketones Ur Leukocyte Esterase 05/04/19 05/04/19 08:00 12:12 RBC RDW Glucose POC Glucose 301 H Urine Glucose (UA) >=500 H Urine Ketones TRACE H Ur Leukocyte Esterase TRACE H - Diagnostic Test Radiology reviewed: Reports reviewed - EKG Interpretation by Me EKG shows normal: Sinus rhythm Rate: Normal - NSR Nl Ulysses [address] elevation or depression repolarization abnormality my interpretation. Discharge - Discharge Clinical Impression: Hyperglycemia Nausea & vomiting Qualifiers: Vomiting type: unspecified Vomiting Intractability: unspecified Qualified Code(s): R11.2 - Nausea with vomiting, unspecified Condition: Fair Disposition: ADMITTED OBSERVATION Admitting Provider: Woody (Hospitalist) Unit Admitted: Medical Floor
--- NOTE | 2019-05-04 14:29 | EKG REPORT ---
SEVERITY:- ABNORMAL ECG - SINUS RHYTHM PROBABLE INFERIOR INFARCT, AGE INDETERMINATE BORDERLINE R WAVE PROGRESSION, ANTERIOR LEADS : Confirmed by: Eileen Bellamy MD 04-May-2019 14:28:50
[2019-05-04] MEDS ORDERED: MECLIZINE HCL 25 MG TABLET PO PRN (15:27)
[2019-05-04] MEDS ORDERED: GLUCAGON,HUMAN RECOMB 1 MG INJ IM PRN (15:35)
[2019-05-04] MEDS ORDERED: DEXTROSE 40% GEL 15 GM TUBE PO PRN ×2 (15:35)
[2019-05-04] MEDS ORDERED: DEXTROSE 50%-WATER 25 GM/50 ML DISP.SYRIN IV PRN ×2 (15:35)
[2019-05-04] MEDS: INSULIN LISPRO 100 UNIT/ML 3 ML VIAL SUBCUT SCH ×2 (16:32→22:00)
[2019-05-04] MEDS ORDERED: INSULIN GLARGINE,HUM.REC.ANLOG 1,000 UNIT/10 ML VIAL SUBCUT SCH (17:00)
--- NOTE | 2019-05-04 17:28 | PDOC H&P ---
History of Present Illness Admission Date/PCP: 05/04/19 13:30 Patient complains of: Nausea vomiting and dizziness History of Present Illness: ORLY OSEI is a 59 year old female with a history of ischemic stroke earlier this year residual left-sided weakness who presents to the hospital with complaints of nausea vomiting and dizziness. Patient states that symptoms started 6am today. Said that the vomiting got worse today and she subsequently started to experience disequilibrium. Also endorses worsening of her left-sided weakness. States that the disequilibrium and worsening of left-sided weakness does occur off and on especially when she gets sick. The main thing there is new is the nausea and vomiting. She has mild epigastric pain. Otherwise denies any shortness of breath fever or chills. Denies consuming anything odd. Past Medical History Cardiac Medical History: Reports: Hyperlipidema, Hypertension Pulmonary Medical History: Reports: Asthma Neurological Medical History: Reports: Migraine Endocrine Medical History: Reports: Diabetes Mellitus Type 1, Diabetes Mellitus Type 2 Denies: Hyperthyroidism, Hypothyroidism Malignancy Medical History: Reports: Cervical Cancer GI Medical History: Reports: Gastroesophageal Reflux Disease Denies: Cirrhosis, Hepatitis Musculoskeltal Medical History: Reports: Arthritis, Fibromyalgia Psychiatric Medical History: Reports: Depression Past Surgical History Past Surgical History: Reports: Section - 2, Cholecystectomy, Hyste rectomy, Orthopedic Surgery - bilateral toes and elbows left knee twice, Tubal Ligation, Other - Ventral hernia and pseudocyst removal Denies: Appendectomy Social History Smoking Status: Unknown if Ever Smoked Frequency of Alcohol Use: None Hx Recreational Drug Use: No Drugs: None Hx Prescription Drug Abuse: No - Advance Directive Resuscitation Status: Full Code Family History Family History: Arthritis, CVA, DM, Hyperlipidemia, Hypertension, Malignancy, Thyroid Disfunction Parental Family History Reviewed: Yes Children Family History Reviewed: NA Sibling(s) Family History Reviewed.: NA Medication/Allergy Home Medications: Acetaminophen [Tylenol Extra Strength 500 mg Tablet] 1,500 mg PO BIDP PRN 05/04/19 Aspirin [Ecotrin 81 mg EC Tablet] 81 mg PO DAILY 05/04/19 Atorvastatin Calcium [Lipitor 40 mg Tablet] 40 mg PO QHS 05/04/19 Clopidogrel Bisulfate [Plavix 75 mg Tablet] 75 mg PO DAILY 05/04/19 Hydrochlorothiazide [Hydrodiuril 12.5 mg Tablet] 12.5 mg PO DAILY 05/04/19 Insulin Aspart [Novolog Flexpen] 0 unit SUBCUT .SLD SCALE 05/04/19 Insulin Degludec [Tresiba Flextouch U-100] 45 unit SQ DAILY 05/04/19 Losartan Potassium [Cozaar 100 mg Tablet] 100 mg PO DAILY 05/04/19 Meclizine HCl [Antivert 25 mg Tablet] 25 mg PO TID PRN 05/04/19 Metoprolol Succinate [Toprol Xl 25 mg Tab.sr] 25 mg PO DAILY 05/04/19 Multivitamin [Multivitamins] 1 each PO DAILY 05/04/19 Bethany-3 Fatty Acids/Fish Oil [Bethany 3 Fish Oil Softgel] 1 each PO DAILY 05/04/19 Pantoprazole Sodium [Protonix [address] Tablet] 20 mg PO QAM 05/04/19 Pregabalin [Lyrica 75 mg Capsule] 75 mg PO Q12HP PRN 05/04/19 Quetiapine Fumarate [Seroquel 100 mg Tablet] 100 mg PO QHS 05/04/19 Tumeric 500 mg PO DAILY 05/04/19 Allergies/Adverse Reactions: Penicillins Allergy (Unknown, Verified 11/22/18 09:49) cephalexin monohydrate [From Keflex] Allergy (Verified 11/22/18 09:49) ciprofloxacin [From Cipro] Allergy (Verified 11/22/18 09:49) codeine Allergy (Verified 11/22/18 09:49) Iodinated Contrast Media [IV Dye, Iodine Containing] Allergy (Verified 11/22/18 09:49) latex [Latex] Allergy (Verified 11/22/18 09:49) metformin Allergy (Verified 11/22/18 09:49) nitrofurantoin macrocrystalline [From Macrodantin] Allergy (Verified 11/22/18 09 :49) penicillin G Allergy (Verified 11/22/18 09:49) Sulfa (Sulfonamide Antibiotics) Allergy (Verified 11/22/18 09:49) tetracycline [Tetracycline] Allergy (Verified 11/22/18 09:49) nitroglycerin [From Nitrostat] Adverse Reaction (Verified 11/22/18 09:49) Review of Systems Constitutional: PRESENT: fatigue. ABSENT: chills Eyes: ABSENT: visual disturbances Ears: ABSENT: hearing changes Nose, Mouth, and Throat: PRESENT: headache(s) Cardiovascular: ABSENT: chest pain Respiratory: ABSENT: dyspnea Gastrointestinal: PRESENT: abdominal pain, nausea, vomiting. ABSENT: diarrhea, dysphagia, heartburn, hematemesis Genitourinary: ABSENT: dysuria Musculoskeletal: PRESENT: muscle weakness. ABSENT: joint swelling Neurological: PRESENT: dizziness, weakness Psychiatric: ABSENT: hallucinations Physical Exam Vital Signs: Temp Pulse Resp BP Pulse Ox 98.0 F 15 140/78 H 97 05/04/19 07:40 05/04/19 14:00 05/04/19 13:00 05/04/19 14:00 Intake & Output 05/03/19 05/04/19 05/05/19 06:59 06:59 06:59 Intake Total 750 Balance 750 Weight 79.9 kg General appearance: PRESENT: no acute distress, cooperative Eye exam: PRESENT: EOMI Neck exam: ABSENT: JVD Respiratory exam: PRESENT: clear to auscultation gerardo, symmetrical, unlabored. ABSENT: tachypnea, wheezes Cardiovascular exam: PRESENT: RRR, +S1, +S2. ABSENT: tachycardia GI/Abdominal exam: PRESENT: normal bowel sounds. ABSENT: firm, guarding, rebound, rigid, soft, tenderness Neurological exam: PRESENT: alert, awake, oriented to person, oriented to place, oriented to time, motor sensory deficit - 4/5 an LUE and LLE. 5/5 in RUE and RLE., other - Normal [id number] testing on right upper extremity. Minimal ataxia with left upper extremity. Results Laboratory Results: 05/04/19 07:00 05/04/19 07:00 05/04/19 05/04/19 05/04/19 07:00 07:00 07:00 WBC 5.6 RBC 5.32 H Hgb 14.8 Hct 43.6 MCV 82 MCH 27.9 MCHC 34.0 RDW 14.1 H Plt Count 213 Seg Neutrophils % 57.4 Sodium 137.5 Cancelled Potassium 4.1 Cancelled Chloride 98 Cancelled Carbon Dioxide 28 Cancelled Anion Gap 12 Cancelled BUN 11 Cancelled Creatinine 0.53 Cancelled Est GFR ( Amer) > 60 Cancelled Est GFR (Non-Af Amer) Cancelled Glucose 474 H* Cancelled Lactic Acid Calcium 9.9 Cancelled Magnesium 2.2 Total Bilirubin 0.7 Cancelled AST 27 Cancelled Alkaline Phosphatase 78 Cancelled Total Protein 8.0 Cancelled Albumin 4.8 Cancelled Lipase 152.8 Urine Color Urine Appearance Urine pH Ur Specific [place] Urine Protein Urine Glucose (UA) Urine Ketones Urine Blood Urine Nitrite Ur Leukocyte Esterase Urine WBC (Auto) Urine RBC (Auto) 05/04/19 05/04/19 07:45 08:00 WBC RBC Hgb Hct MCV MCH MCHC RDW Plt Count Seg Neutrophils % Sodium Potassium Chloride Carbon Dioxide Anion Gap BUN Creatinine Est GFR ( Amer) Est GFR (Non-Af Amer) Glucose Lactic Acid 1.2 Calcium Magnesium Total Bilirubin AST Alkaline Phosphatase Total Protein Albumin Lipase Urine Color STRAW Urine Appearance CLEAR Urine pH 6.0 Ur Specific [place] 1.035 Urine Protein NEGATIVE Urine Glucose (UA) >=500 H Urine Ketones TRACE H Urine Blood NEGATIVE Urine Nitrite NEGATIVE Ur Leukocyte Esterase TRACE H Urine WBC (Auto) 2 Urine RBC (Auto) 1 05/04/19 07:00 Troponin I < 0.012 Impressions: Chest X-Ray 05/04/19 09:31 IMPRESSION: LOW LUNG VOLUMES. NO SIGNIFICANT RADIOGRAPHIC FINDING IN THE CHEST. Head CT 05/04/19 09:31 IMPRESSION: NORMAL BRAIN CT WITHOUT CONTRAST. EVIDENCE OF ACUTE STROKE: NO. Assessment and Plan - Diagnosis (1) Nausea & vomiting Qualifiers: Vomiting type: unspecified Vomiting Intractability: intractable Qualified Code(s): R11.2 - Nausea with vomiting, unspecified Is this a current diagnosis for this admission?: Yes Plan: -Patient admitted as ER provider reports that patient was not able to tolerate p.o. intake after being medicated -Patient reports a history of diabetic gastroparesis which may be responsible for this. Uncertain if any true gastroenteritis is going on the absence of diarrhea. -We will place on IV Reglan and try to challenge patient to see if she can tolerate p.o. later today or tomorrow. (2) CVA (cerebral vascular accident) Qualifiers: CVA mechanism: unspecified Qualified Code(s): I63.9 - Cerebral infarction, unspecified Is this a current diagnosis for this admission?: Yes Plan: Patient takes aspirin Plavix for her prior episodes of stroke. I do not believe the patient has a new stroke and I simply believe that her left-sided weakness worsening and her intermittent dizziness likely secondary to her previous stroke in the setting of her recent sickness. Continue with regimen including statin. Patient should likely be on a higher dose of statin medication. 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 Received 4 units of IV insulin in the ER. Resume patient's regimen of Lantus in place of Tresiba 45 units daily. Will give dose now. Sliding scale insulin, Accu-Cheks before meals and nightly. Carb restricted diet as tolerated. (4) Left-sided muscle weakness Is this a current diagnosis for this admission?: Yes Plan: Refer to problem #2. Physical therapy and Occupational Therapy. - Time Time Spent with patient: 15-24 minutes
[2019-05-04] MEDS: METOCLOPRAMIDE HCL INJ/PF 10 MG/2 ML SDV IV SCH (17:54)
[2019-05-04] MEDS: ACETAMINOPHEN 325 MG TABLET PO PRN (18:24)
[2019-05-04] MEDS: ATORVASTATIN CALCIUM 40 MG TABLET PO SCH (21:59)
[2019-05-04] MEDS: QUETIAPINE FUMARATE 100 MG TABLET PO SCH (21:59)
[2019-05-04] MEDS: ONDANSETRON HCL INJ/PF 4 MG/2 ML SDV IV PRN (23:49)
[2019-05-05] MEDS: INSULIN LISPRO 100 UNIT/ML 3 ML VIAL SUBCUT SCH ×7 (08:35→21:59)
[2019-05-05] MEDS: PANTOPRAZOLE SODIUM 20 MG TABLET.DR PO SCH (08:35)
[2019-05-05] MEDS: ONDANSETRON HCL INJ/PF 4 MG/2 ML SDV IV PRN ×2 (08:41→22:04)
[2019-05-05] MEDS ORDERED: INSULIN GLARGINE,HUM.REC.ANLOG 1,000 UNIT/10 ML VIAL SUBCUT ONE (09:00)
[2019-05-05] MEDS: METOCLOPRAMIDE HCL INJ/PF 10 MG/2 ML SDV IV SCH ×3 (09:30→17:48)
[2019-05-05] MEDS: CLOPIDOGREL BISULFATE 75 MG TABLET PO SCH (09:30)
[2019-05-05] MEDS: HYDROCHLOROTHIAZIDE 12.5 MG TABLET PO SCH (09:30)
[2019-05-05] MEDS: ASPIRIN 81 MG TABLET, ENT COATED PO SCH (09:31)
[2019-05-05] MEDS: LOSARTAN POTASSIUM 50 MG TABLET PO SCH (09:31)
[2019-05-05] MEDS: METOPROLOL SUCCINATE 25 MG TAB.SR.24H PO SCH (09:31)
[2019-05-05] MEDS ORDERED: ENOXAPARIN SODIUM INJ 40 MG/0.4 ML DISP.SYRIN SUBCUT SCH (10:00)
[2019-05-05 11:04] LABS: ANION GAP 8 (5-19); BLOOD UREA NITROGEN 8 mg/dL (7-20); CARBON DIOXIDE 26 mmol/L (22-30); CHLORIDE 102 mmol/L (98-107); GLUCOSE 339 mg/dL (75-110); POTASSIUM 4.2 mmol/L (3.6-5.0)
--- NOTE | 2019-05-05 11:09 | PDOC PROGRESS REPORT ---
Subjective Progress Note for:: 05/05/19 Subjective:: Patient states that she was able to tolerate diet yesterday and today. Patient is still hyperglycemic on blood work. States that she lives with her who to helps take care of her and that she takes Tresiba 45 units at home for her diabetes. States that she felt palpitations earlier this morning. Was able to work with physical therapy sufficiently without experiencing any dizziness on ambulation. Reason For Visit: NAUSEA/VOMITING, DIZZINESS Physical Exam Vital Signs: Temp Pulse Resp BP Pulse Ox 98.2 F 74 16 112/57 L 98 05/05/19 07:12 05/05/19 07:12 05/05/19 07:12 05/05/19 07:12 05/05/19 07:12 Intake & Output 05/04/19 05/05/19 05/06/19 06:59 06:59 06:59 Intake Total 1250 Balance 1250 Weight 79.6 kg General appearance: PRESENT: no acute distress, cooperative Neck exam: ABSENT: JVD Respiratory exam: PRESENT: clear to auscultation gerardo, symmetrical, unlabored. ABSENT: tachypnea, wheezes Cardiovascular exam: PRESENT: RRR, +S1, +S2. ABSENT: irregular rhythm, tachycardia GI/Abdominal exam: PRESENT: normal bowel sounds, soft. ABSENT: guarding, rebound, rigid, tenderness Musculoskeletal exam: PRESENT: ambulatory Neurological exam: PRESENT: alert, awake, oriented to person, oriented to place, oriented to time, motor sensory deficit - 4/5 in LUE and LLE and 5/5 in RUE E and RLE Results Laboratory Results: 05/04/19 07:00 05/04/19 07:00 Troponin I < 0.012 Impressions: Chest X-Ray 05/04/19 09:31 IMPRESSION: LOW LUNG VOLUMES. NO SIGNIFICANT RADIOGRAPHIC FINDING IN THE CHEST. Head CT 05/04/19 09:31 IMPRESSION: NORMAL BRAIN CT WITHOUT CONTRAST. EVIDENCE OF ACUTE STROKE: NO. Assessment and Plan - Diagnosis (1) Diabetes mellitus Qualifiers: Diabetes mellitus terminal carman insulin use: with terminal carman use Diabetes mellitus complication status: with hyperglycemia Is this a current diagnosis for this admission?: Yes Plan: -Patient's hyperglycemia is still significantly uncontrolled despite starting patient on her home therapy of Tresiba [Lantus equivalents] 45 units daily. -uncontrolled blood sugar levels may be a limiting factor to achieving adequate control of reported gastroparesis/nausea vomiting. -I have increased her Lantus to 50 units and started her on lispro with meals. -I will continue to monitor Accu-Cheks and adjust as needed. -Continue sliding scale -Check A1c (2) Nausea & vomiting Qualifiers: Vomiting type: unspecified Vomiting Intractability: intractable Qualified Code(s): R11.2 - Nausea with vomiting, unspecified Is this a current diagnosis for this admission?: Yes Plan: -Patient reports a history of diabetic gastroparesis which may very well be responsible for this. Uncertain if any true gastroenteritis is going on the absence of diarrhea. -Is starting patient on scheduled Reglan, patient has been able to tolerate diets much better than yesterday though she did have an episode of vomiting last night according to her. -We will continue Reglan. Follow-up metabolic panel lab. (3) CVA (cerebral vascular accident) Qualifiers: CVA mechanism: unspecified Qualified Code(s): I63.9 - Cerebral infarction, unspecified Is this a current diagnosis for this admission?: Yes Plan: Patient takes aspirin Plavix for her prior episodes of stroke. I do not believe the patient has a new stroke and I simply believe that her left-sided weakness worsening and her intermittent dizziness likely secondary to her previous stroke in the setting of her recent sickness. Continue with regimen including statin. Patient should likely be on a higher dose of statin medication. Head CT negative for any acute bleed No need to pursue MRI at this time (4) Left-sided muscle weakness Is this a current diagnosis for this admission?: Yes Plan: Refer to problem #2. Patient worked adequately with physical therapy and is safe to be discharged home once medically cleared. - Time Time Spent with patient: 15-24 minutes Anticipated discharge: Home Within: within 24 hours
[2019-05-05] MEDS: ACETAMINOPHEN 325 MG TABLET PO PRN (17:58)
[2019-05-05] MEDS ORDERED: INSULIN GLARGINE,HUM.REC.ANLOG 1,000 UNIT/10 ML VIAL SUBCUT SCH (18:00)
[2019-05-05] MEDS: QUETIAPINE FUMARATE 100 MG TABLET PO SCH (21:59)
[2019-05-05] MEDS: ATORVASTATIN CALCIUM 40 MG TABLET PO SCH (21:59)
[2019-05-05] MEDS ORDERED: INSULIN REG, HUMAN 100 UNIT/ML 3 ML VIAL (PYX) IV ONE (22:00)
[2019-05-06] MEDS: INSULIN LISPRO 100 UNIT/ML 3 ML VIAL SUBCUT SCH ×4 (07:53→12:26)
[2019-05-06] MEDS: PANTOPRAZOLE SODIUM 20 MG TABLET.DR PO SCH (07:53)
[2019-05-06] MEDS: METOCLOPRAMIDE HCL INJ/PF 10 MG/2 ML SDV IV SCH (12:23)
[2019-05-06] MEDS: METOPROLOL SUCCINATE 25 MG TAB.SR.24H PO SCH (12:24)
[2019-05-06] MEDS: HYDROCHLOROTHIAZIDE 12.5 MG TABLET PO SCH (12:24)
[2019-05-06] MEDS: CLOPIDOGREL BISULFATE 75 MG TABLET PO SCH (12:25)
[2019-05-06] MEDS: LOSARTAN POTASSIUM 50 MG TABLET PO SCH (12:25)
[2019-05-06] MEDS: ASPIRIN 81 MG TABLET, ENT COATED PO SCH (12:25)
[2019-05-06 12:35] VITALS: BP 130/82
--- NOTE | 2019-05-06 12:58 | PDOC DISCHARGE SUMMARY ---
Impression - Admit/DC Date/PCP Admission Date/Primary Care Provider: 05/04/19 13:30 Discharge Date: 05/06/19 - Discharge Diagnosis (1) Diabetes mellitus Is this a current diagnosis for this admission?: Yes (2) Nausea & vomiting Is this a current diagnosis for this admission?: Yes (3) CVA (cerebral vascular accident) Is this a current diagnosis for this admission?: Yes (4) Left-sided muscle weakness Is this a current diagnosis for this admission?: Yes - Assessment Summary: Patient was admitted as patient was having severe nausea vomiting and unable to tolerate p.o. intake. Of note head CT was performed due to complaints of increased left-sided weakness and intermittent dizziness. Head CT showed no evidence of any new hemorrhage in the brain. Patient did states that her symptoms of dizziness and increased left-sided weakness actually have been occurring intermittently since her prior stroke. There was very little concern for new ischemic stroke. Patient was continued on on her aspirin and Plavix as well as atorvastatin. In terms of patient's nausea vomiting, it was deemed that was likely secondary to diabetic gastroparesis which patient states that she has a history of. Although we do not have any record of any gastric emptying study, this was thought to be the likely diagnosis given her history as reported and her uncontrolled diabetes mellitus. Patient has been hypoglycemic throughout her stay and was initially presented to a low blood sugar level of over 400. Patient's dose of Tresiba has been increased to 55 units daily and her NovoLog dose has been left the same at 12 units with meals. Patient's A1c was noted to be 11. I have discharge patient safely has all the symptoms have resolved including the dizziness, worsening left-sided weakness and nausea and is not able to tolerate p.o. I will continue the regimen of Reglan twice a day for a few days to have patient's feel better. Patient has been given strict instruction to follow-up with her primary care physician for further management of her diabetes and reported gastroparesis. - Additional Information Resuscitation Status: Full Code Discharge Diet: Diabetic Discharge Activity: Activity As Tolerated Referrals: KATERYNA GONSALEZ MD [NO LOCAL MD] - 05/18/19 9:30 am Prescriptions: Insulin Aspart [Novolog Flexpen] 12 unit SUBCUT AC #10 ml Metoclopramide HCl [Reglan 10 mg Tablet] 1 tab PO BIDACBS #14 tablet Insulin Degludec [Tresiba Flextouch U-100] 55 unit SQ DAILY #20 ml Home Medications: Acetaminophen [Tylenol Extra Strength 500 mg Tablet] 1,500 mg PO BIDP PRN 05/04/19 Aspirin [Ecotrin 81 mg EC Tablet] 81 mg PO DAILY 05/04/19 Atorvastatin Calcium [Lipitor 40 mg Tablet] 40 mg PO QHS 05/04/19 Clopidogrel Bisulfate [Plavix 75 mg Tablet] 75 mg PO DAILY 05/04/19 Hydrochlorothiazide [Hydrodiuril 12.5 mg Tablet] 12.5 mg PO DAILY 05/04/19 Insulin Aspart [Novolog Flexpen] 0 unit SUBCUT .SLD SCALE 05/04/19 Losartan Potassium [Cozaar 100 mg Tablet] 100 mg PO DAILY 05/04/19 Meclizine HCl [Antivert 25 mg Tablet] 25 mg PO TID PRN 05/04/19 Metoprolol Succinate [Toprol Xl 25 mg Tab.sr] 25 mg PO DAILY 05/04/19 Multivitamin [Multivitamins] 1 each PO DAILY 05/04/19 Broadus-3 Fatty Acids/Fish Oil [Broadus 3 Fish Oil Softgel] 1 each PO DAILY 05/04/19 Pantoprazole Sodium [Protonix [address] Tablet] 20 mg PO QAM 05/04/19 Pregabalin [Lyrica 75 mg Capsule] 75 mg PO Q12HP PRN 05/04/19 Quetiapine Fumarate [Seroquel 100 mg Tablet] 100 mg PO QHS 05/04/19 Tumeric 500 mg PO DAILY 05/04/19 Insulin Aspart [Novolog Flexpen] 12 unit SUBCUT AC #10 ml 05/06/19 Insulin Degludec [Tresiba Flextouch U-100] 55 unit SQ DAILY #20 ml 05/06/19 Metoclopramide HCl [Reglan 10 mg Tablet] 1 tab PO BIDACBS #14 tablet 05/06/19 History of Present Illiness History of Present Illness: ORLY OSEI is a 59 year old female with a history of ischemic stroke earlier this year residual left-sided weakness who presents to the hospital with complaints of nausea vomiting and dizziness. Patient states that symptoms started 6am today. Said that the vomiting got worse today and she subsequently started to experience disequilibrium. Also endorses worsening of her left-sided weakness. States that the disequilibrium and worsening of left-sided weakness does occur off and on especially when she gets sick. The main thing there is new is the nausea and vomiting. She has mild epigastric pain. Otherwise denies any shortness of breath fever or chills. Denies consuming anything odd. Physical Exam Vital Signs: Temp Pulse Resp BP Pulse Ox 98.0 F 80 16 130/82 H 99 05/06/19 12:32 05/06/19 12:32 05/06/19 12:32 05/06/19 12:32 05/06/19 12:32 Intake & Output 05/05/19 05/06/19 05/07/19 06:59 06:59 06:59 Intake Total 1250 2086 Balance 1250 2086 Weight 79.6 kg 79.7 kg General appearance: PRESENT: cooperative Respiratory exam: PRESENT: clear to auscultation gerardo Cardiovascular exam: PRESENT: +S1, +S2 GI/Abdominal exam: PRESENT: normal bowel sounds. ABSENT: tenderness Results Laboratory Results: WBC 5.6 10^3/uL (4.0-10.5) 05/04/19 07:00 RBC 5.32 10^6/uL (3.72-5.28) H 05/04/19 07:00 Hgb 14.8 g/dL (12.0-15.5) 05/04/19 07:00 Hct 43.6 % (36.0-47.0) 05/04/19 07:00 MCV 82 fl (80-97) 05/04/19 07:00 MCH 27.9 pg (27.0-33.4) 05/04/19 07:00 MCHC 34.0 g/dL (32.0-36.0) 05/04/19 07:00 RDW 14.1 % (11.5-14.0) H 05/04/19 07:00 Plt Count 213 10^3/uL (150-450) 05/04/19 07:00 Lymph % (Auto) 30.6 % (13-45) 05/04/19 07:00 Barry % (Auto) 8.6 % (3-13) 05/04/19 07:00 Eos % (Auto) 2.6 % (0-6) 05/04/19 07:00 Baso % (Auto) 0.8 % (0-2) 05/04/19 07:00 Absolute Neuts (auto) 3.2 10^3/uL (1.7-8.2) 05/04/19 07:00 Absolute Lymphs (auto) 1.7 10^3/uL (0.5-4.7) 05/04/19 07:00 Absolute Monos (auto) 0.5 10^3/uL (0.1-1.4) 05/04/19 07:00 Absolute Eos (auto) 0.1 10^3/uL (0.0-0.6) 05/04/19 07:00 Absolute Basos (auto) 0.0 10^3/uL (0.0-0.2) 05/04/19 07:00 Seg Neutrophils % 57.4 % (42-78) 05/04/19 07:00 Sodium 136.4 mmol/L (137-145) L 05/05/19 09:50 Potassium 4.2 mmol/L (3.6-5.0) 05/05/19 09:50 Chloride 102 mmol/L (98-107) 05/05/19 09:50 Carbon Dioxide 26 mmol/L (22-30) 05/05/19 09:50 Anion Gap 8 (5-19) 05/05/19 09:50 BUN 8 mg/dL (7-20) 05/05/19 09:50 Creatinine 0.53 mg/dL (0.52-1.25) 05/05/19 09:50 Est GFR ( Amer) > 60 (>60) 05/05/19 09:50 Est GFR (Non-Af Amer) Cancelled 05/04/19 07:00 Est GFR (MDRD) Non-Af > 60 (>60) 05/05/19 09:50 Glucose 339 mg/dL (75-110) H 05/05/19 09:50 POC Glucose 234 mg/dL (70-110) H 05/06/19 11:07 Hemoglobin A1c % 11.8 % (4.7-6.0) H 05/05/19 09:50 Lactic Acid 1.2 mmol/L (0.7-2.1) 05/04/19 07:45 Calcium 9.0 mg/dL (8.4-10.2) 05/05/19 09:50 Magnesium 2.2 mg/dL (1.6-2.3) 05/04/19 07:00 Total Bilirubin 0.7 mg/dL (0.2-1.3) 05/04/19 07:00 Total Bilirubin Cancelled 05/04/19 07:00 Direct Bilirubin 0.2 mg/dL (0.0-0.4) 05/04/19 07:00 Direct Bilirubin Cancelled 05/04/19 07:00 Neonat Total Bilirubin Cancelled 05/04/19 07:00 Neonat Total Bilirubin Not Reportable 05/04/19 07:00 Neonat Direct Bilirubin Cancelled 05/04/19 07:00 Neonat Direct Bilirubin Not Reportable 05/04/19 07:00 Neonat Indirect Bili Cancelled 05/04/19 07:00 Neonat Indirect Bili Not Reportable 05/04/19 07:00 AST 27 U/L (14-36) 05/04/19 07:00 AST Cancelled 05/04/19 07:00 ALT 33 U/L (<35) 05/04/19 07:00 ALT Cancelled 05/04/19 07:00 Alkaline Phosphatase 78 U/L (38-126) 05/04/19 07:00 Alkaline Phosphatase Cancelled 05/04/19 07:00 Troponin I < 0.012 ng/mL 05/04/19 07:00 Total Protein 8.0 g/dL (6.3-8.2) 05/04/19 07:00 Total Protein Cancelled 05/04/19 07:00 Albumin 4.8 g/dL (3.5-5.0) 05/04/19 07:00 Albumin Cancelled 05/04/19 07:00 Lipase 152.8 U/L (23-300) 05/04/19 07:00 EGFR Cancelled 05/04/19 07:00 Urine Color STRAW 05/04/19 08:00 Urine Appearance CLEAR 05/04/19 08:00 Urine pH 6.0 (5.0-9.0) 05/04/19 08:00 Ur Specific [place] 1.035 05/04/19 08:00 Urine Protein NEGATIVE mg/dL (NEGATIVE) 05/04/19 08:00 Urine Glucose (UA) >=500 mg/dL (NEGATIVE) H 05/04/19 08:00 Urine Ketones TRACE mg/dL (NEGATIVE) H 05/04/19 08:00 Urine Blood NEGATIVE (NEGATIVE) 05/04/19 08:00 Urine Nitrite NEGATIVE (NEGATIVE) 05/04/19 08:00 Urine Bilirubin NEGATIVE (NEGATIVE) 05/04/19 08:00 Urine Urobilinogen NEGATIVE mg/dL (<2.0) 05/04/19 08:00 Ur Leukocyte Esterase TRACE (NEGATIVE) H 05/04/19 08:00 Urine WBC (Auto) 2 /HPF 05/04/19 08:00 Urine RBC (Auto) 1 /HPF 05/04/19 08:00 Squamous Epi Cells Auto 2 /HPF 05/04/19 08:00 Urine Mucus (Auto) RARE /LPF 05/04/19 08:00 Urine Ascorbic Acid NEGATIVE (NEGATIVE) 05/04/19 08:00 05/04/19 07:00 Troponin I < 0.012 Impressions: Chest X-Ray 05/04/19 09:31 IMPRESSION: LOW LUNG VOLUMES. NO SIGNIFICANT RADIOGRAPHIC FINDING IN THE CHEST. Head CT 05/04/19 09:31 IMPRESSION: NORMAL BRAIN CT WITHOUT CONTRAST. EVIDENCE OF ACUTE STROKE: NO. Plan Time Spent: Less than 30 Minutes Stroke Is this a Stroke Patient?: Yes Stroke Pt being discharged on Anti-thrombolytic therapy?: Yes Stroke Pt being discharged on Anti-coagulation therapy?: Yes Stroke Pt being discharged on Statins?: Yes Acute Heart Failure - Is this a Heart Failure Patient?: No
[2019-05-06] MEDS ORDERED: INSULIN GLARGINE,HUM.REC.ANLOG 1,000 UNIT/10 ML VIAL SUBCUT SCH (18:00)
== END 2019-05-06 12:50 | disposition home or self-care (01) ==
LOC: ER 07:29 → EH 13:30 → 4N 14:50
PROVIDERS: ADMIT Internal Medicine; ATTEND Internal Medicine
DX: E11.43 Type 2 diabetes mellitus with diabetic autonomic (poly)neuropathy (principal); K31.84 Gastroparesis; R11.2 Nausea with vomiting, unspecified; I69.354 Hemiplegia and hemiparesis following cerebral infarction affecting left non-dominant side; I69.398 Other sequelae of cerebral infarction; R42 Dizziness and giddiness; E11.65 Type 2 diabetes mellitus with hyperglycemia; E78.5 Hyperlipidemia, unspecified; I10 Essential (primary) hypertension; K21.9 Gastro-esophageal reflux disease without esophagitis; R51 Headache; M79.7 Fibromyalgia; M19.90 Unspecified osteoarthritis, unspecified site; Z79.899 Other long term (current) drug therapy; Z79.82 Long term (current) use of aspirin; Z79.02 Long term (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 of antithrombotics/antiplatelets; Z79.4 Long term (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 of insulin; Z85.41 Personal history of malignant neoplasm of cervix uteri; Z90.49 Acquired absence of other specified parts of digestive tract; Z98.890 Other specified postprocedural states; Z90.710 Acquired absence of both cervix and uterus; Z98.51 Tubal ligation status; Z82.3 Family history of stroke; Z82.49 Family history of ischemic heart disease and other diseases of the circulatory system
CPT/HCPCS: 93005; 99285; 96361; 96374; 96375; 36415 ×2; 82962 ×3; 83605; 83690; 83735; 85025; 80048; 80053; 81001; 84484; 83036; 71045; 70450; 93010; 97161; 97166; G0378 ×3; J1815 ×7; J1200; J2765 ×3; J1650; J3490 ×3; J2405 ×2; J7030; J7050

== ENCOUNTER 2019-05-31 19:22 | Emergency (ER) | payer OTHER ==
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
--- NOTE | 2019-05-31 21:24 | RADIOLOGY REPORT (SQ) ---
4 VIEWS OF LEFT ELBOW EXAM DATE: 05/31/2019 8:34 PM [employer] HISTORY: Elbow pain. COMPARISON: None. FINDINGS: No acute fracture or dislocation is seen. The joint spaces are preserved. No elbow joint effusion is seen. IMPRESSION: No acute fracture or malalignment.
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
[2019-06-01 01:39] VITALS: BP 130/70
== END 2019-05-31 23:58 | disposition home or self-care (01) ==
LOC: ER 19:22
DX: M25.522 Pain in left elbow (principal); M25.552 Pain in left hip; Y04.8XXA Assault by other bodily force, initial encounter; Y99.0 Civilian activity done for income or pay; I10 Essential (primary) hypertension; J45.909 Unspecified asthma, uncomplicated; E11.9 Type 2 diabetes mellitus without complications; Z87.891 Personal history of nicotine dependence
CPT/HCPCS: 99284

== ENCOUNTER 2019-07-02 07:45 | Observation (INO) | payer OTHER ==
--- NOTE | 2019-07-02 08:06 | ER Document Report ---
ED Medical Screen (RME) - General Chief Complaint: Dizziness Stated Complaint: DIZZINESS Time Seen by Provider: 07/02/19 08:04 Primary Care Provider: JACK SÁNCHEZ DO [Primary Care Provider] - Follow up as needed Notes: 59-year-old female presents with left-sided deficits, slurred speech, increased confusion that started upon awakening at 630 this morning. Patient has a history of CVA in the past. Patient states that the weakness is worse than usual. Pronator drift. Decreased upper and lower extremity strength on left. CT head ordered. I have greeted and performed a rapid initial assessment of this patient. A comprehensive ED assessment and evaluation of the patient, analysis of test results and completion of the medical decision making process with be conducted by additional ED providers. TRAVEL OUTSIDE OF THE [place] IN LAST 30 DAYS: No - Related Data Allergies/Adverse Reactions: Penicillins Allergy (Unknown, Verified 05/31/19 20:32) cephalexin monohydrate [From Keflex] Allergy (Verified 05/31/19 20:32) ciprofloxacin [From Cipro] Allergy (Verified 05/31/19 20:32) codeine Allergy (Verified 05/31/19 20:32) Iodinated Contrast Media [IV Dye, Iodine Containing] Allergy (Verified 05/31/19 20:32) latex [Latex] Allergy (Verified 05/31/19 20:32) metformin Allergy (Verified 05/31/19 20:32) nitrofurantoin macrocrystalline [From Macrodantin] Allergy (Verified 05/31/19 20:32) penicillin G Allergy (Verified 05/31/19 20:32) Sulfa (Sulfonamide Antibiotics) Allergy (Verified 05/31/19 20:32) tetracycline [Tetracycline] Allergy (Verified 05/31/19 20:32) nitroglycerin [From Nitrostat] Adverse Reaction (Verified 05/31/19 20:32) Past Medical History - Social History Family history: Reviewed & Not Pertinent - Past Medical History Cardiac Medical History: Reports: Hx Hypercholesterolemia, Hx Hypertension Pulmonary Medical History: Reports: Hx Asthma Neurological Medical History: Reports: Hx Cerebrovascular Accident, Hx Migraine Endocrine Medical History: Reports: Hx Diabetes Mellitus Type 1, Hx Diabetes Mellitus Type 2. Denies: Hx Hyperthyroidism, Hx Hypothyroidism Renal/ Medical History: Denies: Hx Peritoneal Dialysis Malignancy Medical History: Reports: Hx Cervical Cancer GI Medical History: Reports: Hx Gastroesophageal Reflux Disease. Denies: Hx Cirrhosis, Hx Hepatitis Musculoskeltal Medical History: Reports Hx Arthritis, Reports Hx Fibromyalgia, Reports Hx Musculoskeletal Deformity, Reports Hx Musculoskeletal Trauma Psychiatric Medical History: Reports: Hx Anxiety, Hx Depression Traumatic Medical History: Reports: Hx Fractures - Facial fractures bilateral t oes elbow and left knee Infectious Medical History: Denies: Hx Hepatitis Past Surgical History: Reports: Hx Abdominal Surgery - hernia, Hx Se ction - 2, Hx Cholecystectomy, Hx Hysterectomy, Hx Orthopedic Surgery - bilateral toes and elbows left knee twice, Hx Tubal Ligation, Other - Ventral hernia and pseudocyst removal. Denies: Hx Appendectomy - Immunizations Immunizations up to date: Yes Hx Diphtheria, Pertussis, Tetanus Vaccination: Yes Physical Exam - Vital signs Vitals: Temp Pulse Resp BP Pulse Ox 97.7 F 83 20 146/77 H 96 07/02/19 07:49 07/02/19 07:49 07/02/19 07:49 07/02/19 07:49 07/02/19 07:49 Course - Vital Signs Vital signs: Temp Pulse Resp BP Pulse Ox 97.7 F 83 20 146/77 H 96 07/02/19 07:49 07/02/19 07:49 07/02/19 07:49 07/02/19 07:49 07/02/19 07:49 Doctor's Discharge - Discharge Referrals: JACK SÁNCHEZ DO [Primary Care Provider] - Follow up as needed
--- NOTE | 2019-07-02 08:24 | RADIOLOGY REPORT (SQ) ---
EXAM DESCRIPTION: CT HEAD WITHOUT COMPLETED DATE/TIME: 07/02/2019 8:08 am REASON FOR STUDY: left sided weakness, slurred speech, stroke COMPARISON: 05/04/2019, 02/18/2019, 10/28/2016, 02/06/2015 CT brain TECHNIQUE: Axial images acquired through the brain without intravenous contrast. Images reviewed wi th bone, brain and subdural windows. Additional sagittal and coronal reconstructions were generated. Images stored on PACS. All CT scanners at this facility use dose modulation, iterative reconstruction, and/or weight based d osing when appropriate to reduce radiation dose to as low as reasonably achievable (ALARA). [facility]: Dose Right [facility]: CareDose [facility]: Dose Right [facility]: Teradose 4D [facility]: [employer] RADIATION DOSE: CT Rad equipment meets quality standard of care and radiation dose reduction techniq ues were employed. CTDIvol: 53.2 mGy. DLP: 1017 mGy-cm. mGy. LIMITATIONS: None. FINDINGS: VENTRICLES: Normal size and contour. CEREBRUM: No CT evidence of acute large territory ischemic change, acute intracranial hemorrhage, mas s effect, or midline shift. Punctate lacunar infarcts in the left thalamus and basal ganglia. Minim al spotty white matter chronic ischemic change. CEREBELLUM: No masses. No hemorrhage. No alteration of density. No evidence for acute infarction. EXTRAAXIAL SPACES: No fluid collections. No masses. ORBITS AND GLOBE: No intra- or extraconal masses. Normal contour of globe without masses. CALVARIUM: No fracture. PARANASAL SINUSES: No fluid or mucosal thickening. SOFT TISSUES: No mass or hematoma. OTHER: No other significant finding. IMPRESSION: Old lacunar infarcts left thalamus and basal ganglia. Spotty white matter disease. No acute findings. EVIDENCE OF ACUTE STROKE: NO. COMMENT: Pertinent findings on the imaging study reported as a CRITICAL RESULT to KAYLA CASTILLO at08:13 on 07/02/2019. Category of Critical Result: CT code stroke Quality ID # [id number]: Final reports with documentation of one or more dose reduction techniques (e.g., Au tomated exposure control, adjustment of the mA and/or kV according to patient size, use of iterative reconstruction technique) TECHNICAL DOCUMENTATION: JOB ID: [id number] [employer]- All Rights Reserved Reading location - IP/workstation name: [email or web address]
[2019-07-02 08:31] LABS: ABSOLUTE BASOPHILS # (AUTO) 0.1 10^3/uL (0.0-0.2); ABSOLUTE EOSINOPHILS # (AUTO) 0.1 10^3/uL (0.0-0.6); ABSOLUTE LYMPHOCYTES (AUTO) 1.5 10^3/uL (0.5-4.7); ABSOLUTE MONOCYTES (AUTO) 0.5 10^3/uL (0.1-1.4); BASOPHILS % (AUTO) 0.8 % (0-2); EOSINOPHILS % (AUTO) 2.1 % (0-6); HEMATOCRIT 42.3 % (36.0-47.0); HEMOGLOBIN 14.6 g/dL (12.0-15.5); LYMPHOCYTES % (AUTO) 23.9 % (13-45); MEAN CORPUSCULAR HEMOGLOBIN 28.3 pg (27.0-33.4); MEAN CORPUSCULAR HGB CONC 34.6 g/dL (32.0-36.0); MEAN CORPUSCULAR VOLUME 82 fl (80-97); MONOCYTES % (AUTO) 8.5 % (3-13); PLATELET COUNT 211 10^3/uL (150-450); RED BLOOD COUNT 5.17 10^6/uL (3.72-5.28); RED CELL DISTRIBUTION WIDTH 13.9 % (11.5-14.0); SEGMENTED NEUTROPHILS % (AUTO) 64.7 % (42-78); TOTAL CELLS COUNTED % (AUTO) 100 %; WHITE BLOOD COUNT 6.2 10^3/uL (4.0-10.5)
[2019-07-02 08:37] LABS: INTERNATIONAL RATION (INR) 0.91; PROTHROMBIN TIME 12.3 SEC (11.4-15.4)
--- NOTE | 2019-07-02 08:40 | RADIOLOGY REPORT (SQ) ---
EXAM DESCRIPTION: CHEST SINGLE VIEW COMPLETED DATE/TIME: 07/02/2019 8:23 am REASON FOR STUDY: stroke s/s COMPARISON: AP view of the chest from 05/04/2019. EXAM PARAMETERS: NUMBER OF VIEWS: One view. TECHNIQUE: An AP view of the chest was obtained. RADIATION DOSE: NA LIMITATIONS: None. FINDINGS: LUNGS AND PLEURA: Low inspiratory lung volumes without a superimposed consolidation, pleur al effusion or pneumothorax. MEDIASTINUM AND HILAR STRUCTURES: No mediastinal or hilar contour abnormality. HEART AND VASCULAR STRUCTURES: The cardiac silhouette and pulmonary vasculature are within normal renae its. BONES: No acute findings. HARDWARE: Implantable cardiac monitoring device in the left hemithorax. OTHER: No other finding. IMPRESSION: Low inspiratory lung volumes without a superimposed acute cardiopulmonary process. TECHNICAL DOCUMENTATION: JOB ID: [id number]- All Rights Reserved Reading location - IP/workstation name: [email or web address]
[2019-07-02] MEDS ORDERED: MECLIZINE HCL 25 MG TABLET PO ONE (08:48)
[2019-07-02 08:51] LABS: ALBUMIN 4.7 g/dL (3.5-5.0); ALKALINE PHOSPHATASE 72 U/L (38-126); ANION GAP 11 (5-19); ASPARTATE AMINO TRANSFERASE 26 U/L (14-36); BILIRUBIN,DIRECT 0.3 mg/dL (0.0-0.4); BILIRUBIN,TOTAL 0.6 mg/dL (0.2-1.3); BLOOD UREA NITROGEN 17 mg/dL (7-20); CALCIUM 9.9 mg/dL (8.4-10.2); CARBON DIOXIDE 28 mmol/L (22-30); CHLORIDE 102 mmol/L (98-107); CREATINE KINASE 41 U/L (30-135); GLUCOSE 260 mg/dL (75-110); POTASSIUM 4.2 mmol/L (3.6-5.0); TOTAL PROTEIN 7.7 g/dL (6.3-8.2)
[2019-07-02 09:02] LABS: CREATINE KINASE MB 1.45 ng/mL (<4.55)
[2019-07-02 09:12] LABS: TROPONIN I < 0.012 ng/mL
--- NOTE | 2019-07-02 10:04 | ER Document Report ---
Entered by BLAKE KAPLAN SCRIBE 07/02/19 0836 Acting as scribe for:DEEPAK GARZA MD ED Neuro Symptoms/Deficit - General Chief Complaint: Dizziness Stated Complaint: DIZZINESS Time Seen by Provider: 07/02/19 08:04 Mode of Arrival: Ambulatory Information source: Patient Notes: This 59 year old female patient presents to the emergency department today with complaints of left sided weakness which she noticed upon awakening this morning at 0630. Patient reports that she woke up from sleep between 1:00a-1:30a last night and went to the refrigerator to get something to drink and she was normal at that time. Patient had a CVA in October of 2018 and has residual left sided weakness. Patient reports her baseline left sided weakness is very minor but today since awakening it is very pronounced. TRAVEL OUTSIDE OF THE [place] IN LAST 30 DAYS: No - Related Data Allergies/Adverse Reactions: Penicillins Allergy (Unknown, Verified 05/31/19 20:32) cephalexin monohydrate [From Keflex] Allergy (Verified 05/31/19 20:32) ciprofloxacin [From Cipro] Allergy (Verified 05/31/19 20:32) codeine Allergy (Verified 05/31/19 20:32) Iodinated Contrast Media [IV Dye, Iodine Containing] Allergy (Verified 05/31/19 20:32) latex [Latex] Allergy (Verified 05/31/19 20:32) metformin Allergy (Verified 05/31/19 20:32) nitrofurantoin macrocrystalline [From Macrodantin] Allergy (Verified 05/31/19 20:32) penicillin G Allergy (Verified 05/31/19 20:32) Sulfa (Sulfonamide Antibiotics) Allergy (Verified 05/31/19 20:32) tetracycline [Tetracycline] Allergy (Verified 05/31/19 20:32) nitroglycerin [From Nitrostat] Adverse Reaction (Verified 05/31/19 20:32) Past Medical History - General Information source: Patient - Social History Smoking Status: Unknown if Ever Smoked Cigarette use (# per day): No Frequency of alcohol use: None Drug Abuse: None Lives with: Family Family History: Arthritis, CVA, DM, Hyperlipidemia, Hypertension, Malignancy, Thyroid Disfunction Patient has suicidal ideation: No Patient has homicidal ideation: No - Past Medical History Cardiac Medical History: Reports: Hx Hypercholesterolemia, Hx Hypertension Pulmonary Medical History: Reports: Hx Asthma Neurological Medical History: Reports: Hx Cerebrovascular Accident, Hx Migraine Endocrine Medical History: Reports: Hx Diabetes Mellitus Type 2 Malignancy Medical History: Reports: Hx Cervical Cancer GI Medical History: Reports: Hx Gastroesophageal Reflux Disease Musculoskeletal Medical History: Reports Hx Arthritis, Reports Hx Fibromyalgia, Reports Hx Musculoskeletal Deformity, Reports Hx Musculoskeletal Trauma Psychiatric Medical History: Reports: Hx Anxiety, Hx Depression Traumatic Medical History: Reports: Hx Fractures - Facial fractures bilateral toes elbow and left knee Past Surgical History: Reports: Hx Abdominal Surgery - hernia, Hx Section - 2, Hx Cholecystectomy, Hx Hysterectomy, Hx Orthopedic Surgery - bilateral toes and elbows left knee twice, Hx Tubal Ligation, Other - Ventral hernia and pseudocyst removal - Immunizations Immunizations up to date: Yes Hx Diphtheria, Pertussis, Tetanus Vaccination: Yes Review of Systems - Review of Systems Constitutional: No symptoms reported EENT: No symptoms reported Cardiovascular: No symptoms reported Respiratory: No symptoms reported Gastrointestinal: No symptoms reported Genitourinary: No symptoms reported Female Genitourinary: No symptoms reported Musculoskeletal: No symptoms reported Skin: No symptoms reported Hematologic/Lymphatic: No symptoms reported Neurological/Psychological: See HPI -: Yes All other systems reviewed and negative Physical Exam - Vital signs Vitals: Temp Pulse Resp BP Pulse Ox 97.7 F 83 20 146/77 H 96 07/02/19 07:49 07/02/19 07:49 07/02/19 07:49 07/02/19 07:49 07/02/19 07:49 - Notes Notes: Physical Exam: General: Alert, appears well, slightly slurred speech. HEENT: Normocephalic. Atraumatic. PERRL. Extraocular movements intact. Oropharynx clear. Tongue is slightly deviated to the left. Left facial droop. Neck: Supple. Non-tender. Respiratory: No respiratory distress. Clear and equal breath sounds bilaterally. Cardiovascular: Regular rate and rhythm. Abdominal: Normal Inspection. Non-tender. No distension. Normal Bowel Sounds. Back: No gross abnormalities. Extremities: Moves all four extremities. Upper extremities: Left upper extremity weakness. 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 Pronator drift on the left. Lower extremities: Left lower extremity weakness. Neurological: Normal cognition. AAOx4. Slurred speech. Psychological: Normal affect. Normal Mood. Skin: Warm. Dry. Normal color. Course - Vital Signs Vital signs: Temp Pulse Resp BP Pulse Ox 97.7 F 83 20 146/77 H 96 07/02/19 07:49 07/02/19 07:49 07/02/19 07:49 07/02/19 07:49 07/02/19 07:49 - Laboratory Result Diagrams: 07/02/19 08:17 07/02/19 08:17 - Diagnostic Test Radiology reviewed: Image reviewed, Reports reviewed - Portable chest x-ray shows low lung volumes and an implantable cardiac monitoring device in the left chest. No acute findings. CT scan shows old lacunar infarcts involving left thalamus and basal ganglia with no acute findings. MRI of the brain shows supratentorial periventricular and subcortical white matter areas representing chronic microvascular ischemic changes. There is no acute intracranial abnormality. - EKG Interpretation by Me EKG shows normal: Sinus rhythm, [place], Intervals, ST-T Waves. abnormal: QRS Complexes - Possible old inferior ID Rate: Normal - 74 Rhythm: NSR When compared to previous EKG there are: No significant change - Consults Dr. Guthrie Time consulted: 13:10 Consulted provider: will come to ER Critical Care Note - Critical Care Note Total time excluding time spent on procedures (mins): 35 ED [employer]/Exc Criteria - Inclusion Criteria: 1: Patient presented to ED within 3 hours of acute ischemic stroke symptom onset? -: No - Woke up with symptoms, last known well 5 hours earlier 2: Did baseline CT exclude intracranial hemorrhage and/or other risk factors? -: Yes 3: Is the age of the patient 18 years of age or greater? -: Yes : If any of the above questions are answered "NO" then stop, patient is not a candidate for Alteplase, : If all of the above questions are answered "YES" then continue with Exclusion Criteria. - Exclusion Criteria: 1: Is there evidence of intracranial hemorrhage on baseline CT? -: No 2: Is there suspicion of subarachnoid hemorrhage (even if CT negative)? -: No 3: Is there a history of serious head trauma, recent previous stroke or ID within 3 months? -: No 4: Does the patient have a clinical presentation consistent with ID or post-ID pericarditis? -: No 5: Is there history of intracranial hemorrhage? -: No 6: On repeated measurement is Systolic BP greater than 185mmHg or Diastolic BP greater that 110 mmHg and is aggressive treatment needed to reduce blood pressure to these limits (e.g. constant infusion of an anti-hypertensive)? -: No 7: Did the patient awake with stroke symptoms? -: Yes 8: Has the patient had a lumbar puncture or an arterial puncture at a non- compressile site within 7 days? -: No 9: With in the last 14 days did the patient have surgery or major trauma? -: No 10: Is the patient or less than 2 weeks? -: No 11: Was there any active bleeding or acute trauma? -: No 12: Does the patient have intracranial neoplasm, arteriovenous malformation or aneurysm? -: No 13: Does the patient have abnormal glucose (less than 50 or greater than 400mg/dl)? Record glucose in Comment. -: No 14: Patient has rapidly improving symptoms at the time Alteplase is to be Administered. -: No 15: Does the patient have any risks for bleeding, including but not limited to: a.: Current use of Coumadin with PT greater than 15 seconds or INR greater than 1.7. b.: Current use of Pradaxa (Dabigatran). c.: Heparin administereed within the past 48 hours and PTT elevated. d.: Platelet count less than 100,000/mm. e.: Major surgery or serious trauma within 14 days. f.: Gastrointestinal or gynecological urinary bleeding within 14 days. g.: Myocardial Infarction (ID) within 3 months. -: No - Patient does take Plavix : If the answer to any of the above questions is "YES" then stop, the patient is not a candidate for Alteplase. : If the answer to all of the above questions is "NO" then the patient may be eligible for the Administration of Alteplase. : If the patient is noted to have seizure activity at onset of Stroke symptoms; Consult Neurologist for further evaluation. - The patient is: -: Included and is eligible to receive Alteplase. *Initiate bed placement at higher level of care* Reviewed risks & benefits of thrombolytic therapy: I have reviewed the risks and benefits of thrombolytic therapy with the patient and/or his/her family. -: Excluded and not eligible to receive Alteplase for the above exclusions. --: Yes -: Excluded and not eligible to receive Alteplase for other reasons (specify in comments): --: Yes - MRI negative for acute ischemic event - Diagnosis of TIA: -: Patient presented with transient symptoms that are now resolved and no other neurologic findings are currently present. List symptoms in comments. -: Patient is NOT a candidate for tPA. -: ____(put name in comment) has been consulted for admission and continued evaluation of risk factor assessment. Discharge - Discharge Clinical Impression: Slurred speech, Left-sided weakness, Dizziness Headache Qualifiers: Headache type: unspecified Headache chronicity pattern: unspecified pattern Intractability: not intractable Qualified Code(s): R51 - Headache Condition: Stable Disposition: ADMITTED INPATIENT Admitting Provider: Jerri (Hospitalist) Unit Admitted: [facility] Scribe Attestation: 07/02/19 12:43 I personally performed the services described in the documentation, reviewed and edited the documentation which was dictated to the scribe in my presence, and it accurately records my words and actions. I personally performed the services described in the documentation, reviewed and edited the documentation which was dictated to the scribe in my presence, and it accurately records my words and actions.
[2019-07-02 10:20] LABS: APPEARANCE,URINE CLEAR; BILIRUBIN,URINE NEGATIVE (NEGATIVE); COLOR,URINE STRAW; GLUCOSE, URINE >=500 mg/dL (NEGATIVE); KETONES,URINE TRACE mg/dL (NEGATIVE); LEUKOCYTE ESTERASE,URINE TRACE (NEGATIVE); NITRITE,URINE NEGATIVE (NEGATIVE); PROTEIN,URINE NEGATIVE (NEGATIVE); URINE SPECIFIC GRAVITY 1.029; UROBILINOGEN,URINE NEGATIVE mg/dL (<2.0)
--- NOTE | 2019-07-02 11:55 | RADIOLOGY REPORT (SQ) ---
EXAM DESCRIPTION: MRI HEAD WITHOUT COMPLETED DATE/TIME: 07/02/2019 11:26 am REASON FOR STUDY: R/O acute CVA COMPARISON: CT of the head without contrast from 07/02/2019 and MRI of the head without contrast from 04/02/2019. TECHNIQUE: Multiplanar imaging includes non-contrasted T1, T2, FLAIR, and diffusion with ADC map seq uences. Images stored on PACS. LIMITATIONS: None. FINDINGS: The midline structures, including the corpus callosum, sella turcica, and craniocervical j unction, are normal in appearance. There is no restricted diffusion on the DWI. There is no blooming artifact on the gradient sequence. The areas of high T2/FLAIR signal within the supratentorial periventricular and subcortical white mat ter are unchanged and could represent the sequela of chronic microvascular ischemia. There is no acute intracranial hemorrhage, vascular territorial infarct, extra-axial fluid collection , mass effect or midline shift. There is no effacement of the cerebral sulci or basal subarachnoid c isterns. The tse-white matter differentiation is preserved. The caliber the ventricles is concorda nt with the degree sulcation. The intracranial vascular flow voids are preserved. The orbits and globes are intact. The paranasal sinuses are clear. There is no abnormality of the c alvarium. IMPRESSION: No acute intracranial abnormality. EVIDENCE OF ACUTE STROKE: NO. TECHNICAL DOCUMENTATION: JOB ID: [id number] [employer]- All Rights Reserved Reading location - IP/workstation name: [email or web address]
--- NOTE | 2019-07-02 12:59 | EKG REPORT ---
SEVERITY:- ABNORMAL ECG - SINUS RHYTHM PROBABLE INFERIOR INFARCT, AGE INDETERMINATE BORDERLINE R WAVE PROGRESSION, ANTERIOR LEADS : Confirmed by: Jennifer Burgess 02-Jul-2019 12:58:29
[2019-07-02] MEDS ORDERED: PROMETHAZINE HCL INJ 25 MG/1 ML VIAL IV PRN (14:06)
[2019-07-02] MEDS ORDERED: ONDANSETRON HCL INJ/PF 4 MG/2 ML SDV IV PRN (14:06)
[2019-07-02] MEDS ORDERED: IPRATROPIUM/ALBUTEROL 0.5-2.5 MG/3 ML AMPUL NEB PRN (14:06)
[2019-07-02] MEDS ORDERED: TEMAZEPAM 7.5 MG CAPSULE PO PRN (14:06)
--- NOTE | 2019-07-02 16:52 | PDOC H&P ---
History of Present Illness Admission Date/PCP: 07/02/19 13:48 CARLOS HIDALGO DO History of Present Illness: ORLY OSEI is a 59 year old female past medical history of dyslipidemia , hypertension, asthma, CVA, recurrent TIA, migraines, diabetes, GERD, fibromyalgia, arthritis, anxiety, depression, who was recently discharged from [facility] after being hospitalized for nausea vomiting, diabetic gastroparesis, and left-sided weakness, patient brought to ED by EMS after waking up this morning at 630 noticing worsening left-sided weakness and slurred speech. Patient has residual left lower extremity weakness and dysarthria from CVA that she sustained on October 2018 but today seem to be worse. On my encounter patient is comfortably sitting in bed in no apparent distress, alert and oriented x3, cooperative with physical examination, denies any headache, vision changes, shortness of breath, chest pain, nausea, vomiting, diarrhea, constipation or any urinary symptoms. In ED CT head showed old lacunar infarct in left thalamus and basal ganglia and no acute stroke. Follow-up MRI was also negative for any acute stroke. Hospitalist was consulted for admission. Past Medical History Cardiac Medical History: Reports: Hyperlipidema, Hypertension Pulmonary Medical History: Reports: Asthma Neurological Medical History: Reports: Migraine Endocrine Medical History: Reports: Diabetes Mellitus Type 1, Diabetes Mellitus Type 2 Denies: Hyperthyroidism, Hypothyroidism Malignancy Medical History: Reports: Cervical Cancer GI Medical History: Reports: Gastroesophageal Reflux Disease Denies: Cirrhosis, Hepatitis Musculoskeltal Medical History: Reports: Arthritis, Fibromyalgia Psychiatric Medical History: Reports: Depression Past Surgical History Past Surgical History: Reports: Section - 2, Cholecystectomy, Hysterec prerna, Orthopedic Surgery - bilateral toes and elbows left knee twice, Tubal Ligation, Other - Ventral hernia and pseudocyst removal Denies: Appendectomy Social History Lives with: Family Smoking Status: Unknown if Ever Smoked Frequency of Alcohol Use: None Hx Recreational Drug Use: No Drugs: None Hx Prescription Drug Abuse: No - Advance Directive Resuscitation Status: Full Code Family History Family History: Arthritis, CVA, DM, Hyperlipidemia, Hypertension, Malignancy, Thyroid Disfunction Parental Family History Reviewed: Yes Children Family History Reviewed: Yes Sibling(s) Family History Reviewed.: Yes Medication/Allergy Home Medications: Acetaminophen [Tylenol Extra Strength 500 mg Tablet] 1,500 mg PO BIDP PRN 05/04/19 Aspirin [Ecotrin 81 mg EC Tablet] 81 mg PO DAILY 05/04/19 Atorvastatin Calcium [Lipitor 40 mg Tablet] 40 mg PO QHS 05/04/19 Clopidogrel Bisulfate [Plavix 75 mg Tablet] 75 mg PO DAILY 05/04/19 Hydrochlorothiazide [Hydrodiuril 12.5 mg Tablet] 12.5 mg PO DAILY 05/04/19 Losartan Potassium [Cozaar 100 mg Tablet] 100 mg PO DAILY 05/04/19 Meclizine HCl [Antivert 25 mg Tablet] 25 mg PO TID PRN 05/04/19 Metoprolol Succinate [Toprol Xl 25 mg Tab.sr] 25 mg PO DAILY 05/04/19 Multivitamin [Multivitamins] 1 each PO DAILY 05/04/19 [place]-3 Fatty Acids/Fish Oil [[place] 3 Fish Oil Softgel] 1 each PO DAILY 05/04/19 Pantoprazole Sodium [Protonix [address] Tablet] 20 mg PO QAM 05/04/19 Pregabalin [Lyrica 75 mg Capsule] 75 mg PO Q12HP PRN 05/04/19 Quetiapine Fumarate [Seroquel 100 mg Tablet] 100 mg PO QHS 05/04/19 Tumeric 500 mg PO DAILY 05/04/19 Insulin Degludec [Tresiba Flextouch U-100] 30 unit SQ BID 07/02/19 Allergies/Adverse Reactions: Penicillins Allergy (Unknown, Verified 05/31/19 20:32) cephalexin monohydrate [From Keflex] Allergy (Verified 05/31/19 20:32) ciprofloxacin [From Cipro] Allergy (Verified 05/31/19 20:32) codeine Allergy (Verified 05/31/19 20:32) Iodinated Contrast Media [IV Dye, Iodine Containing] Allergy (Verified 05/31/19 20:32) latex [Latex] Allergy (Verified 05/31/19 20:32) metformin Allergy (Verified 05/31/19 20:32) nitrofurantoin macrocrystalline [From Macrodantin] Allergy (Verified 05/31/19 20:32) penicillin G Allergy (Verified 05/31/19 20:32) Sulfa (Sulfonamide Antibiotics) Allergy (Verified 05/31/19 20:32) tetracycline [Tetracycline] Allergy (Verified 05/31/19 20:32) nitroglycerin [From Nitrostat] Adverse Reaction (Verified 05/31/19 20:32) Physical Exam Vital Signs: Temp Pulse Resp BP Pulse Ox 98 F 76 16 116/76 98 07/02/19 16:04 07/02/19 16:04 07/02/19 16:04 07/02/19 16:04 07/02/19 16:04 Intake & Output 07/01/19 07/02/19 07/03/19 06:59 06:59 06:59 Weight 77 kg Results Laboratory Results: 07/02/19 08:17 07/02/19 08:17 07/02/19 07/02/19 07/02/19 08:17 08:17 09:58 WBC 6.2 RBC 5.17 Hgb 14.6 Hct 42.3 MCV 82 MCH 28.3 MCHC 34.6 RDW 13.9 Plt Count 211 Seg Neutrophils % 64.7 Sodium 140.5 Potassium 4.2 Chloride 102 Carbon Dioxide 28 Anion Gap 11 BUN 17 Creatinine 0.53 Est GFR ( Amer) > 60 Glucose 260 H Calcium 9.9 Total Bilirubin 0.6 AST 26 Alkaline Phosphatase 72 Total Protein 7.7 Albumin 4.7 Urine Color STRAW Urine Appearance CLEAR Urine pH 5.0 Ur Specific [place] 1.029 Urine Protein NEGATIVE Urine Glucose (UA) >=500 H Urine Ketones TRACE H Urine Blood NEGATIVE Urine Nitrite NEGATIVE Ur Leukocyte Esterase TRACE H Urine WBC (Auto) 5 Urine RBC (Auto) 1 07/02/19 07/02/19 08:17 08:17 Creatine Kinase 41 CK-MB (CK-2) 1.45 Troponin I < 0.012 Impressions: Head CT 07/02/19 07:58 IMPRESSION: Old lacunar infarcts left thalamus and basal ganglia. Spotty white matter disease. No acute findings. EVIDENCE OF ACUTE STROKE: NO. Chest X-Ray 07/02/19 07:59 IMPRESSION: Low inspiratory lung volumes without a superimposed acute cardiopulmonary process. Head MRI 07/02/19 08:39 IMPRESSION: No acute intracranial abnormality. EVIDENCE OF ACUTE STROKE: NO. Assessment and Plan - Diagnosis (1) TIA (transient ischemic attack) Is this a current diagnosis for this admission?: Yes Plan: Patient has baseline left lower extremity weakness and dysarthria from previous stroke. Patient at baseline on my encounter. CT head and MRI negative for any acute stroke. 2D echo 04/04/2019. 2D echo no obvious cardiac source of emboli noted. MRI head 11/22/2018. No acute left cerebellar peduncle consistent with acute la cunar infarction. Left vertebrobasilar distribution. MRI head 09/30/2014. Tiny focal area of increased signal intensity on the T2 weighted sequences in the region of the basal ganglia on the left most consistent with old lacunar infarct. Carotid Doppler 06/02/2018. Carotid Doppler mild to moderate atheromatous plaque associated with the right carotid bifurcation. For_0.256 I personally assessed. Less than 50% stenosis on the left side. 2018. CTA head. 02/02/2019. No CT evidence of stenosis or aneurysm of the upper [place] of [place]. CTA neck. 02/02/2019. No measurable areas of stenosis in the head or neck. EKG 07/02/2019. Sinus rhythm. (note: Chart review of EKGs on [facility] does not show any A. fib a flutter. ) Admit to IMCU, high intensity statins, DAPT, optimize BPs, neurochecks, PT/ST/OT, aspiration, seizure, fall precautions. Patient has established physical therapy at the stroke center with Dr. Carlos Hidalgo at [facility]. (2) History of CVA (cerebrovascular accident) Is this a current diagnosis for this admission?: Yes Plan: History of multiple lacunar infarcts with residual dysarthria and left lower extremity weakness. Deficits are at baseline. Plan as per 1. (3) Left-sided weakness Is this a current diagnosis for this admission?: Yes Plan: As above. (4) Depression Qualifiers: Is this a current diagnosis for this admission?: Yes Plan: Denies any suicidal or homicidal ideation. Restart home meds. Outpatient PCP follow-up. Outpatient psychiatry follow-up. (5) Diabetes mellitus Qualifiers: Diabetes mellitus type: type 2 Is this a current diagnosis for this admission?: Yes Plan: Not controlled. Hemoglobin A1c 11.8 on 05/05/2019. Home meds is Tresiba 30 units twice daily. Patient allergic to metformin. Diabetic diet, basal, correctional and sliding scale insulin. Accu-Chek. Hypoglycemia protocol. Adjust insulin dose as needed. Outpatient PCP endocrinology follow-up. (6) GERD (gastroesophageal reflux disease) Is this a current diagnosis for this admission?: Yes Plan: Restart home meds. (7) HLD (hyperlipidemia) Is this a current diagnosis for this admission?: Yes Plan: Restart high intensity statins. Outpatient PCP follow-up for LFT monitoring. (8) HTN (hypertension) Is this a current diagnosis for this admission?: Yes Plan: Euvolemic. Normotensive. Restart home meds. Adjust meds as needed. Outpatient PCP follow-up.
[2019-07-02] MEDS ORDERED: PREGABALIN 75 MG CAPSULE PO PRN (16:53)
[2019-07-02] MEDS: NORMAL SALINE 1000 ML 1,000 ML IV PRN (17:53)
[2019-07-02] MEDS: ASPIRIN 81 MG TABLET, ENT COATED PO SCH (17:53)
[2019-07-02] MEDS: CLOPIDOGREL BISULFATE 75 MG TABLET PO SCH (17:53)
[2019-07-02] MEDS: DOCUSATE SODIUM 100 MG CAPSULE PO SCH (17:53)
[2019-07-02] MEDS ORDERED: (PENDING PHARMACY ID) (Insulin Degludec [Tresiba Flextouch U-100] 30 UNIT) SUBCUT SCH (18:00)
[2019-07-02] MEDS ORDERED: QUETIAPINE FUMARATE 100 MG TABLET PO SCH (22:00)
[2019-07-02] MEDS ORDERED: ATORVASTATIN CALCIUM 40 MG TABLET PO SCH (22:00)
[2019-07-02] MEDS: HEPARIN SOD (PORCINE) 5,000 UNIT/ML 1 ML VIAL SUBCUT SCH (22:20)
[2019-07-02] MEDS: ACETAMINOPHEN 325 MG TABLET PO PRN (22:20)
[2019-07-02] MEDS: FAMOTIDINE 20 MG TABLET PO SCH (22:20)
[2019-07-02] MEDS ORDERED: DEXTROSE 50%-WATER SYRINGE 25 GM/50 ML DOSE IV PRN (23:00)
[2019-07-02] MEDS ORDERED: DEXTROSE 40% GEL 15 GM TUBE X 2 PO PRN (23:00)
[2019-07-02] MEDS ORDERED: DEXTROSE 40% GEL 15 GM TUBE PO PRN (23:00)
[2019-07-02] MEDS ORDERED: INSULIN GLARGINE,HUM.REC.ANLOG 1,000 UNIT/10 ML VIAL (PYX) SUBCUT ONE (23:00)
[2019-07-02] MEDS ORDERED: GLUCAGON,HUMAN RECOMB 1 MG INJ IM PRN (23:00)
[2019-07-02] MEDS ORDERED: DEXTROSE 50%-WATER SYRINGE 12.5 GM/25 ML DOSE IV PRN (23:00)
[2019-07-03 05:07] LABS: ABSOLUTE EOSINOPHILS # (AUTO) 0.2 10^3/uL (0.0-0.6); ABSOLUTE LYMPHOCYTES (AUTO) 2.1 10^3/uL (0.5-4.7); ABSOLUTE MONOCYTES (AUTO) 0.5 10^3/uL (0.1-1.4); BASOPHILS % (AUTO) 0.6 % (0-2); EOSINOPHILS % (AUTO) 2.9 % (0-6); HEMATOCRIT 40.8 % (36.0-47.0); HEMOGLOBIN 14.1 g/dL (12.0-15.5); LYMPHOCYTES % (AUTO) 36.1 % (13-45); MEAN CORPUSCULAR HEMOGLOBIN 27.9 pg (27.0-33.4); MEAN CORPUSCULAR HGB CONC 34.6 g/dL (32.0-36.0); MEAN CORPUSCULAR VOLUME 81 fl (80-97); MONOCYTES % (AUTO) 8.7 % (3-13); PLATELET COUNT 202 10^3/uL (150-450); RED BLOOD COUNT 5.06 10^6/uL (3.72-5.28); RED CELL DISTRIBUTION WIDTH 14.1 % (11.5-14.0); SEGMENTED NEUTROPHILS % (AUTO) 51.7 % (42-78); TOTAL CELLS COUNTED % (AUTO) 100 %; WHITE BLOOD COUNT 5.8 10^3/uL (4.0-10.5)
[2019-07-03 05:30] LABS: ALBUMIN 4.1 g/dL (3.5-5.0); ALKALINE PHOSPHATASE 60 U/L (38-126); ANION GAP 9 (5-19); ASPARTATE AMINO TRANSFERASE 27 U/L (14-36); BILIRUBIN,TOTAL 0.6 mg/dL (0.2-1.3); BLOOD UREA NITROGEN 14 mg/dL (7-20); CALCIUM 8.9 mg/dL (8.4-10.2); CARBON DIOXIDE 24 mmol/L (22-30); CHLORIDE 104 mmol/L (98-107); CHOLESTEROL 165.46 mg/dL (0-200); GLUCOSE 178 mg/dL (75-110); POTASSIUM 3.9 mmol/L (3.6-5.0); TOTAL PROTEIN 6.8 g/dL (6.3-8.2); TRIGLYCERIDES 276 mg/dL (<150)
[2019-07-03 05:41] LABS: DIRECT LDL 98 mg/dL (<100)
[2019-07-03 05:49] LABS: VLDL CHOLESTEROL 55.2 mg/dL (10-31)
[2019-07-03] MEDS: NORMAL SALINE 1000 ML 1,000 ML IV PRN (05:55)
[2019-07-03] MEDS: HEPARIN SOD (PORCINE) 5,000 UNIT/ML 1 ML VIAL SUBCUT SCH ×2 (05:56→14:28)
[2019-07-03] MEDS: INSULIN LISPRO 100 UNIT/ML 3 ML VIAL SUBCUT SCH ×3 (07:49→16:26)
[2019-07-03] MEDS: ACETAMINOPHEN 325 MG TABLET PO PRN ×2 (07:49→15:48)
[2019-07-03] MEDS: DOCUSATE SODIUM 100 MG CAPSULE PO SCH (09:25)
[2019-07-03] MEDS: CLOPIDOGREL BISULFATE 75 MG TABLET PO SCH (09:25)
[2019-07-03] MEDS: ASPIRIN 81 MG TABLET, ENT COATED PO SCH (09:25)
[2019-07-03] MEDS: FAMOTIDINE 20 MG TABLET PO SCH (09:25)
[2019-07-03] MEDS ORDERED: METOPROLOL SUCCINATE 25 MG TAB.SR.24H PO SCH (10:00)
[2019-07-03] MEDS ORDERED: LOSARTAN POTASSIUM 50 MG TABLET PO SCH (10:00)
[2019-07-03] MEDS ORDERED: HYDROCHLOROTHIAZIDE 12.5 MG TABLET PO SCH (10:00)
[2019-07-03] MEDS ORDERED: INSULIN GLARGINE,HUM.REC.ANLOG 1,000 UNIT/10 ML VIAL SUBCUT SCH (10:00)
[2019-07-03 15:42] VITALS: BP 116/76
--- NOTE | 2019-07-05 15:45 | PDOC DISCHARGE SUMMARY ---
Impression - Admit/DC Date/PCP Admission Date/Primary Care Provider: 07/02/19 13:48 CARLOS HIDALGO DO Discharge Date: 07/03/19 - Discharge Diagnosis (1) TIA (transient ischemic attack) Is this a current diagnosis for this admission?: Yes (2) History of CVA (cerebrovascular accident) Is this a current diagnosis for this admission?: Yes (3) Left-sided weakness Is this a current diagnosis for this admission?: Yes (4) Depression Is this a current diagnosis for this admission?: Yes (5) Diabetes mellitus Is this a current diagnosis for this admission?: Yes (6) GERD (gastroesophageal reflux disease) Is this a current diagnosis for this admission?: Yes (7) HLD (hyperlipidemia) Is this a current diagnosis for this admission?: Yes (8) HTN (hypertension) Is this a current diagnosis for this admission?: Yes - Additional Information Resuscitation Status: Full Code Discharge Diet: As Tolerated Discharge Activity: Activity As Tolerated, Balance Activity w/Rest, Slowly Increase Activity Referrals: CARLOS HIDALGO DO [Primary Care Provider] - Follow up as needed Prescriptions: Atorvastatin Calcium [Lipitor 80 mg Tablet] 80 mg PO QHS 30 Days #30 tablet NS Home Medications: Acetaminophen [Tylenol Extra Strength 500 mg Tablet] 1,500 mg PO BIDP PRN 05/04/19 Aspirin [Ecotrin 81 mg EC Tablet] 81 mg PO DAILY 05/04/19 Clopidogrel Bisulfate [Plavix 75 mg Tablet] 75 mg PO DAILY 05/04/19 Hydrochlorothiazide [Hydrodiuril 12.5 mg Tablet] 12.5 mg PO DAILY 05/04/19 Losartan Potassium [Cozaar 100 mg Tablet] 100 mg PO DAILY 05/04/19 Meclizine HCl [Antivert 25 mg Tablet] 25 mg PO TID PRN 05/04/19 Metoprolol Succinate [Toprol Xl 25 mg Tab.sr] 25 mg PO DAILY 05/04/19 Multivitamin [Multivitamins] 1 each PO DAILY 05/04/19 [place]-3 Fatty Acids/Fish Oil [[place] 3 Fish Oil Softgel] 1 each PO DAILY 05/04/19 Pantoprazole Sodium [Protonix [address] Tablet] 20 mg PO QAM 05/04/19 Pregabalin [Lyrica 75 mg Capsule] 75 mg PO Q12HP PRN 05/04/19 Quetiapine Fumarate [Seroquel 100 mg Tablet] 100 mg PO QHS 05/04/19 Tumeric 500 mg PO DAILY 05/04/19 Insulin Degludec [Tresiba Flextouch U-100] 30 unit SQ BID 07/02/19 Atorvastatin Calcium [Lipitor 80 mg Tablet] 80 mg PO QHS 30 Days #30 tablet NS 07/03/19 History of Present Illiness History of Present Illness: ORLY OESI is a 59 year old female past medical history of dyslipidemia, hypertension, asthma, CVA, recurrent TIA, migraines, diabetes, GERD, fibromyalgia, arthritis, anxiety, depression, who was recently discharged from [facility] after being hospitalized for nausea vomiting, diabetic gastroparesis, and left-sided weakness, patient brought to ED by EMS after waking up this morning at 630 noticing worsening left-sided weakness and slurred speech. Patient has residual left lower extremity weakness and dysarthria from CVA that she sustained on October 2018 but today seem to be worse. On my encounter patient is comfortably sitting in bed in no apparent distress, alert and oriented x3, cooperative with physical examination, denies any headache, vision changes, shortness of breath, chest pain, nausea, vomiting, diarrhea, constipation or any urinary symptoms. In ED CT head showed old lacunar infarct in left thalamus and basal ganglia and no acute stroke. Follow-up MRI was also negative for any acute stroke. Hospitalist was consulted for admission. Hospital Course Hospital Course: (1) TIA (transient ischemic attack) Patient has baseline left lower extremity weakness and dysarthria from previous stroke. Patient at baseline on my encounter. CT head and MRI negative for any acute stroke. 2D echo 04/04/2019. 2D echo no obvious cardiac source of emboli noted. MRI head 11/22/2018. No acute left cerebellar peduncle consistent with acute lacunar infarction. Left vertebrobasilar distribution. MRI head 09/30/2014. Tiny focal area of increased signal intensity on the T2 weighted sequences in the region of the basal ganglia on the left most consistent with old lacunar infarct. Carotid Doppler 06/02/2018. Carotid Doppler mild to moderate atheromatous plaque associated with the right carotid bifurcation. For_0.256 I personally assessed. Less than 50% stenosis on the left side. 2018. CTA head. 02/02/2019. No CT evidence of stenosis or aneurysm of the [place]. CTA neck. 02/02/2019. No measurable areas of stenosis in the head or neck. EKG 07/02/2019. Sinus rhythm. (note: Chart review of EKGs on [facility] does not show any A. fib a flutter. ) Was admitted to [facility] [place], high intensity statins, DAPT, optimized BPs, neurochecks, PT/ST/OT, aspiration, seizure, fall precautions. Patient has established physical therapy at the stroke center with Dr. Carlos Hidalgo at [facility]. Patient was discharged home to follow-up with her established PT OT ST as outpatient. Was asked to restart her home meds. Her atorvastatin was increased from 40 to 80 mg nightly. Patient and family was advised to follow-up with neurologist. (2) History of CVA (cerebrovascular accident) History of multiple lacunar infarcts with residual dysarthria and left lower extremity weakness. Deficits are at baseline. Plan as per 1. (3) Left-sided weakness As above. (4) Depression Denies any suicidal or homicidal ideation. Restarted home meds. Outpatient PCP follow-up. Outpatient psychiatry follow- up. (5) Diabetes mellitus Hemoglobin A1c 11.8 on 05/05/2019. Home meds is Tresiba 30 units twice daily. Patient allergic to metformin. Diabetic diet, basal, correctional and sliding scale insulin. Accu-Chek. Hypoglycemia protocol. Adjusted insulin dose as needed. Outpatient PCP endocrinology follow-up. Advised to follow-up with PCP. (6) GERD (gastroesophageal reflux disease) Restarted home meds. Outpatient PCP and gastroenterology follow-up. (7) HLD (hyperlipidemia) Restart high intensity statins. Outpatient PCP follow-up for LFT monitoring. (8) HTN (hypertension) Euvolemic. Normotensive. Restarted home meds. Advised to restart home meds upon discharge. Follow-up with PCP. Physical Exam Vital Signs: Temp Pulse Resp BP Pulse Ox 98.1 F 81 18 116/76 94 07/03/19 15:40 07/03/19 15:40 07/03/19 15:40 07/03/19 15:40 07/03/19 15:40 Intake & Output 07/04/19 07/05/19 07/06/19 06:59 06:59 06:59 Intake Total 576 Output Total 1 Balance 575 General appearance: PRESENT: no acute distress, well-developed, well-nourished Head exam: PRESENT: atraumatic, normocephalic Neck exam: ABSENT: carotid bruit, JVD, lymphadenopathy, thyromegaly Respiratory exam: PRESENT: clear to auscultation gerardo. ABSENT: rales, rhonchi, wheezes Pulses: PRESENT: normal dorsalis pedis pul Neurological exam: PRESENT: alert, awake, oriented to person, oriented to place, oriented to time, oriented to situation, CN II-XII grossly intact - Mild dysarthria. Chronic.. ABSENT: motor sensory deficit - Left lower extremity strength 4/5. Chronic. Results Laboratory Results: WBC 5.8 10^3/uL (4.0-10.5) 07/03/19 04:20 RBC 5.06 10^6/uL (3.72-5.28) 07/03/19 04:20 Hgb 14.1 g/dL (12.0-15.5) 07/03/19 04:20 Hct 40.8 % (36.0-47.0) 07/03/19 04:20 MCV 81 fl (80-97) 07/03/19 04:20 MCH 27.9 pg (27.0-33.4) 07/03/19 04:20 MCHC 34.6 g/dL (32.0-36.0) 07/03/19 04:20 RDW 14.1 % (11.5-14.0) H 07/03/19 04:20 Plt Count 202 10^3/uL (150-450) 07/03/19 04:20 Lymph % (Auto) 36.1 % (13-45) 07/03/19 04:20 [place] % (Auto) 8.7 % (3-13) 07/03/19 04:20 Eos % (Auto) 2.9 % (0-6) 07/03/19 04:20 Baso % (Auto) 0.6 % (0-2) 07/03/19 04:20 Absolute Neuts (auto) 3.0 10^3/uL (1.7-8.2) 07/03/19 04:20 Absolute Lymphs (auto) 2.1 10^3/uL (0.5-4.7) 07/03/19 04:20 Absolute Monos (auto) 0.5 10^3/uL (0.1-1.4) 07/03/19 04:20 Absolute Eos (auto) 0.2 10^3/uL (0.0-0.6) 07/03/19 04:20 Absolute Basos (auto) 0.0 10^3/uL (0.0-0.2) 07/03/19 04:20 Seg Neutrophils % 51.7 % (42-78) 07/03/19 04:20 PT 12.3 SEC (11.4-15.4) 07/02/19 08:17 INR 0.91 07/02/19 08:17 APTT 32.0 SEC (23.5-35.8) 07/02/19 08:17 Sodium 136.9 mmol/L (137-145) L 07/03/19 04:20 Potassium 3.9 mmol/L (3.6-5.0) 07/03/19 04:20 Chloride 104 mmol/L (98-107) 07/03/19 04:20 Carbon Dioxide 24 mmol/L (22-30) 07/03/19 04:20 Anion Gap 9 (5-19) 07/03/19 04:20 BUN 14 mg/dL (7-20) 07/03/19 04:20 Creatinine 0.43 mg/dL (0.52-1.25) L 07/03/19 04:20 Est GFR ( Amer) > 60 (>60) 07/03/19 04:20 Est GFR (MDRD) Non-Af > 60 (>60) 07/03/19 04:20 Glucose 178 mg/dL (75-110) H 07/03/19 04:20 POC Glucose 130 mg/dL (70-110) H 07/03/19 11:39 Hemoglobin A1c % 9.3 % (4.7-6.0) H 07/03/19 04:20 Calcium 8.9 mg/dL (8.4-10.2) 07/03/19 04:20 Magnesium 2.0 mg/dL (1.6-2.3) 07/03/19 04:20 Total Bilirubin 0.6 mg/dL (0.2-1.3) 07/03/19 04:20 Direct Bilirubin 0.0 mg/dL (0.0-0.4) 07/03/19 04:20 Neonat Total Bilirubin Not Reportable 07/03/19 04:20 Neonat Direct Bilirubin Not Reportable 07/03/19 04:20 Neonat Indirect Bili Not Reportable 07/03/19 04:20 AST 27 U/L (14-36) 07/03/19 04:20 ALT 31 U/L (<35) 07/03/19 04:20 Alkaline Phosphatase 60 U/L (38-126) 07/03/19 04:20 Creatine Kinase 41 U/L (30-135) 07/02/19 08:17 CK-MB (CK-2) 1.45 ng/mL (<4.55) 07/02/19 08:17 Troponin I < 0.012 ng/mL 07/02/19 08:17 Total Protein 6.8 g/dL (6.3-8.2) 07/03/19 04:20 Albumin 4.1 g/dL (3.5-5.0) 07/03/19 04:20 Triglycerides 276 mg/dL (<150) H 07/03/19 04:20 Cholesterol 165.46 mg/dL (0-200) 07/03/19 04:20 LDL Cholesterol Direct 98 mg/dL (<100) 07/03/19 04:20 VLDL Cholesterol 55.2 mg/dL (10-31) H 07/03/19 04:20 HDL Cholesterol 34 mg/dL (>40) L 07/03/19 04:20 Urine Color STRAW 07/02/19 09:58 Urine Appearance CLEAR 07/02/19 09:58 Urine pH 5.0 (5.0-9.0) 07/02/19 09:58 Ur Specific [place] 1.029 07/02/19 09:58 Urine Protein NEGATIVE mg/dL (NEGATIVE) 07/02/19 09:58 Urine Glucose (UA) >=500 mg/dL (NEGATIVE) H 07/02/19 09:58 Urine Ketones TRACE mg/dL (NEGATIVE) H 07/02/19 09:58 Urine Blood NEGATIVE (NEGATIVE) 07/02/19 09:58 Urine Nitrite NEGATIVE (NEGATIVE) 07/02/19 09:58 Urine Bilirubin NEGATIVE (NEGATIVE) 07/02/19 09:58 Urine Urobilinogen NEGATIVE mg/dL (<2.0) 07/02/19 09:58 Ur Leukocyte Esterase TRACE (NEGATIVE) H 07/02/19 09:58 Urine WBC (Auto) 5 /HPF 07/02/19 09:58 Urine RBC (Auto) 1 /HPF 07/02/19 09:58 Squamous Epi Cells Auto 1 /HPF 07/02/19 09:58 Urine Mucus (Auto) RARE /LPF 07/02/19 09:58 Urine Ascorbic Acid NEGATIVE (NEGATIVE) 07/02/19 09:58 07/02/19 08:17 CK-MB (CK-2) 1.45 Troponin I < 0.012 Impressions: Head CT 07/02/19 07:58 IMPRESSION: Old lacunar infarcts left thalamus and basal ganglia. Spotty white matter disease. No acute findings. EVIDENCE OF ACUTE STROKE: NO. Chest X-Ray 07/02/19 07:59 IMPRESSION: Low inspiratory lung volumes without a superimposed acute cardiopulmonary process. Head MRI 07/02/19 08:39 IMPRESSION: No acute intracranial abnormality. EVIDENCE OF ACUTE STROKE: NO. Stroke Is this a Stroke Patient?: No Acute Heart Failure - Is this a Heart Failure Patient?: No
== END 2019-07-03 16:45 | disposition home or self-care (01) ==
LOC: ER 07:45 → EH 13:48 → INTOOBSV 13:48 → 3S 16:40
PROVIDERS: ADMIT Internal Medicine; ATTEND Internal Medicine
DX: G45.9 Transient cerebral ischemic attack, unspecified (principal); I69.354 Hemiplegia and hemiparesis following cerebral infarction affecting left non-dominant side; I69.322 Dysarthria following cerebral infarction; F32.9 Major depressive disorder, single episode, unspecified; E11.43 Type 2 diabetes mellitus with diabetic autonomic (poly)neuropathy; K31.84 Gastroparesis; E11.65 Type 2 diabetes mellitus with hyperglycemia; K21.9 Gastro-esophageal reflux disease without esophagitis; E78.5 Hyperlipidemia, unspecified; I10 Essential (primary) hypertension; M19.90 Unspecified osteoarthritis, unspecified site; M79.7 Fibromyalgia; Z79.899 Other long term (current) drug therapy; Z79.82 Long term (current) use of aspirin; Z79.02 Long term (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 of antithrombotics/antiplatelets; Z85.41 Personal history of malignant neoplasm of cervix uteri; Z90.49 Acquired absence of other specified parts of digestive tract; Z82.3 Family history of stroke; Z79.4 Long term (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 of insulin
CPT/HCPCS: 93005; 99291; 36415 ×2; 82553; 82962 ×2; 82550; 83735; 85025 ×2; 85610; 85730; 80053 ×2; 81001; 84484; 83036; 80061; 70551; 71045; 70450; 93010; 97116; 97162; G0378 ×3; J1815 ×3; J1644 ×2; J7030 ×2

== ENCOUNTER 2019-07-21 21:58 | Emergency (ER) | payer OTHER ==
[2019-07-21 22:14] VITALS: BP 109/58
--- NOTE | 2019-07-22 00:11 | RADIOLOGY REPORT (SQ) ---
EXAM DESCRIPTION: XR SHOULDER 2 OR MORE VIEWS COMPLETED DATE/TME: 07/21/2019 00:00 CLINICAL HISTORY: 59 years, Female, bone pain COMPARISON: None. NUMBER OF VIEWS: 3 TECHNIQUE: 3 view right shoulder LIMITATIONS: None. FINDINGS: Negative for acute fracture or dislocation. Mild degenerative changes of the AC joint. Soft tissues are unremarkable IMPRESSION: No acute osseous abnormality copyright 2010 [employer]- All Rights Reserved
--- NOTE | 2019-07-22 00:52 | ER Document Report ---
ED Medical Screen (RME) - General Chief Complaint: Shoulder Pain Stated Complaint: FALL/RIGHT SHOULDER PAIN Time Seen by Provider: 07/21/19 23:25 Primary Care Provider: JACK SÁNCHEZ DO [Primary Care Provider] - Follow up as needed Notes: Patient is a 59-year-old female who presents to the emergency department with a chief complaint of right shoulder pain. Patient has a history of stroke and she normally has problems with balance and states that she lost her balance like normal and hit her shoulder on the door. Denies any dizziness, shortness of breath, difficulty breathing, chest pain, or new weakness. Exam: Tenderness noted to right shoulder. I have greeted and performed a rapid initial assessment of this patient. A comprehensive ED assessment and evaluation of the patient, analysis of test results and completion of medical decision making process will be conducted by an additional ED providers. TRAVEL OUTSIDE OF THE [place] IN LAST 30 DAYS: No - Related Data Allergies/Adverse Reactions: Penicillins Allergy (Unknown, Verified 05/31/19 20:32) cephalexin monohydrate [From Keflex] Allergy (Verified 05/31/19 20:32) ciprofloxacin [From Cipro] Allergy (Verified 05/31/19 20:32) codeine Allergy (Verified 05/31/19 20:32) Iodinated Contrast Media [IV Dye, Iodine Containing] Allergy (Verified 05/31/19 20:32) latex [Latex] Allergy (Verified 05/31/19 20:32) metformin Allergy (Verified 05/31/19 20:32) nitrofurantoin macrocrystalline [From Macrodantin] Allergy (Verified 05/31/19 20:32) penicillin G Allergy (Verified 05/31/19 20:32) Sulfa (Sulfonamide Antibiotics) Allergy (Verified 05/31/19 20:32) tetracycline [Tetracycline] Allergy (Verified 05/31/19 20:32) nitroglycerin [From Nitrostat] Adverse Reaction (Verified 05/31/19 20:32) Home Medications: pt reports that [facility] has the list, and no changes. pt doesn't remember Past Medical History - Social History Family history: Reviewed & Not Pertinent - Past Medical History Cardiac Medical History: Reports: Hx Hypercholesterolemia, Hx Hypertension Pulmonary Medical History: Reports: Hx Asthma Neurological Medical History: Reports: Hx Cerebrovascular Accident, Hx Migraine Endocrine Medical History: Reports: Hx Diabetes Mellitus Type 1, Hx Diabetes Mellitus Type 2. Denies: Hx Hyperthyroidism, Hx Hypothyroidism Renal/ Medical History: Denies: Hx Peritoneal Dialysis Malignancy Medical History: Reports: Hx Cervical Cancer GI Medical History: Reports: Hx Gastroesophageal Reflux Disease. Denies: Hx Cirrhosis, Hx Hepatitis Musculoskeltal Medical History: Reports Hx Arthritis, Reports Hx Fibromyalgia, Reports Hx Musculoskeletal Deformity, Reports Hx Musculoskeletal Trauma Psychiatric Medical History: Reports: Hx Anxiety, Hx Depression Traumatic Medical History: Reports: Hx Fractures - Facial fractures bilateral toes elbow and left knee Infectious Medical History: Denies: Hx Hepatitis Past Surgical History: Reports: Hx Abdominal Surgery - hernia, Hx Section - 2, Hx Cholecystectomy, Hx Hysterectomy, Hx Orthopedic Surgery - bilateral toes and elbows left knee twice, Hx Tubal Ligation, Other - Ventral hernia and pseudocyst removal. Denies: Hx Appendectomy - Immunizations Immunizations up to date: Yes Hx Diphtheria, Pertussis, Tetanus Vaccination: Yes Physical Exam - Vital signs Vitals: Temp Pulse Resp BP Pulse Ox 97.4 F 89 20 109/58 L 97 07/21/19 22:12 07/21/19 22:12 07/21/19 22:12 07/21/19 22:12 07/21/19 22:12 Course - Vital Signs Vital signs: Temp Pulse Resp BP Pulse Ox 97.4 F 89 20 109/58 L 97 07/21/19 22:12 07/21/19 22:12 07/21/19 22:12 07/21/19 22:12 07/21/19 22:12 Doctor's Discharge - Discharge Referrals: JACK SÁNCHEZ DO [Primary Care Provider] - Follow up as needed
[2019-07-22] MEDS ORDERED: HYDROCODONE/ACETAMINOPHEN 5-325 MG (6 TAB/ER DISP) PO PRN (02:31)
--- NOTE | 2019-07-22 02:40 | ER Document Report ---
HPI - HPI Time Seen by Provider: 07/21/19 23:25 Pain Level: 5 Context: Patient is a 59-year-old female that comes to the emergency department for chief complaint of right shoulder injury. She states that she lost her balance and struck her right shoulder on the tip of her shoulder at the head of the humerus (she points) on a door frame. She denies falling to the ground, hitting her head, or any other injuries. She states it feels swollen and the pain did not resolve after taking Tylenol and ibuprofen so she came in for evaluation. She states it hurts to lift her arm over her head but she denies weakness or numbness. She denies any other complaints. She is on Plavix. She does have a history of CVA with some imbalance and slurring of speech. at bedside - REPRODUCTIVE Reproductive: DENIES: : - MUSCULOSKELETAL Musculoskeletal: REPORTS: Extremity pain Past Medical History - General Information source: Patient, Relative - Social History Smoking Status: Never Smoker Frequency of alcohol use: None Drug Abuse: None Lives with: Family Family History: Arthritis, CVA, DM, Hyperlipidemia, Hypertension, Malignancy, Thyroid Disfunction Patient has suicidal ideation: No Patient has homicidal ideation: No - Past Medical History Cardiac Medical History: Reports: Hx Hypercholesterolemia, Hx Hypertension Pulmonary Medical History: Reports: Hx Asthma Neurological Medical History: Reports: Hx Cerebrovascular Accident, Hx Migraine Endocrine Medical History: Reports: Hx Diabetes Mellitus Type 1, Hx Diabetes Mellitus Type 2. Denies: Hx Hyperthyroidism, Hx Hypothyroidism Renal/ Medical History: Denies: Hx Peritoneal Dialysis Malignancy Medical History: Reports: Hx Cervical Cancer GI Medical History: Reports: Hx Gastroesophageal Reflux Disease. Denies: Hx Cirrhosis, Hx Hepatitis Musculoskeletal Medical History: Reports Hx Arthritis, Reports Hx Fibromyalgia, Reports Hx Musculoskeletal Deformity, Reports Hx Musculoskeletal Trauma Psychiatric Medical History: Reports: Hx Anxiety, Hx Depression Traumatic Medical History: Reports: Hx Fractures - Facial fractures bilateral toes elbow and left knee Infectious Medical History: Denies: Hx Hepatitis Past Surgical History: Reports: Hx Abdominal Surgery - hernia, Hx Section - 2, Hx Cholecystectomy, Hx Hysterectomy, Hx Orthopedic Surgery - bilateral toes and elbows left knee twice, Hx Tubal Ligation, Other - Ventral hernia and pseudocyst removal. Denies: Hx Appendectomy - Immunizations Immunizations up to date: Yes Hx Diphtheria, Pertussis, Tetanus Vaccination: Yes Vertical Provider Document - CONSTITUTIONAL General Appearance: WD/WN, No Apparent Distress - INFECTION CONTROL TRAVEL OUTSIDE OF THE [place] IN LAST 30 DAYS: No - HEENT HEENT: Atraumatic, Normal ENT Exam, Normocephalic - NECK Neck: Normal Inspection - RESPIRATORY Respiratory: Breath Sounds Normal, No Respiratory Distress, Chest Non-Tender - CARDIOVASCULAR Cardiovascular: Regular Rate, Regular Rhythm - GI/ABDOMEN Gastrointestinal: Abdomen Soft, Abdomen Non-Tender. negative: Abdomen Tender - BACK Back: Normal Inspection - Non-tender back generally on palpation. No midline tenderness, no saddle anesthesia, no signs of trauma. Normal upper and lower extremity range of motion, normal strength, normal distal neurovascular exam. - MUSCULOSKELETAL/EXTREMETIES Musculoskeletal/Extremeties: MAEW, FROM, Tender - Tender over the right humeral head but no swelling or ecchymosis. Patient is able to lift the arm and range of motion but this is slightly painful. Normal baffle mounter, normal distal neurovascular exam. Normal extremities otherwise. - NEURO Level of Consciousness: Awake, Alert, Appropriate Motor/Sensory: No Motor Deficit, No Sensory Deficit - DERM Integumentary: Warm, Dry, No Rash Course - Re-evaluation Re-evalutation: Patient with point tenderness over the right humerus, however range of motion intact, there is no significant swelling, no ecchymosis, no other tenderness. Patient denies any other injuries including head injury. There is no other sign of injury. Patient is alert and well-appearing. Reportedly at baseline per patient and . X-ray of the shoulder is negative. I suspect soft tissue injury only, possible sprain of the rotator cuff. Discussed sling but this was deferred because of patient's balance issues to begin with. Discussed care, follow-up, return precautions. Patient and state appreciation and agreement. Stable at time of discharge. - Vital Signs Vital signs: Temp Pulse Resp BP Pulse Ox 97.4 F 89 20 109/58 L 97 07/21/19 22:12 07/21/19 22:12 07/21/19 22:12 07/21/19 22:12 07/21/19 22:12 - Diagnostic Test Radiology reviewed: Image reviewed, Reports reviewed Discharge - Discharge Clinical Impression: Right shoulder injury Qualifiers: Encounter type: initial encounter Qualified Code(s): S49.91XA - Unspecified injury of right shoulder and upper arm, initial encounter Condition: Stable Disposition: HOME, SELF-CARE Instructions: Oral Narcotic Medication ([facility]) Additional Instructions: The x-ray of your shoulder is negative. There is no fracture seen. This appears to be soft tissue injury only. I recommend icing the shoulder for the first day several times a day, after this I recommend applying heat to your shoulder and upper back. Take Tylenol and/or ibuprofen for pain, only take the stronger pain medication if absolutely needed (using precautions, especially at night to help you sleep). Symptoms should resolve with time. Follow closely with your primary care provider for additional management. Return for any concerning or worsening symptoms including severe worsening pain, swelling, or numbness.
== END 2019-07-22 02:47 | disposition home or self-care (01) ==
LOC: ER 21:58
DX: S49.91XA Unspecified injury of right shoulder and upper arm, initial encounter (principal); W22.09XA Striking against other stationary object, initial encounter; I10 Essential (primary) hypertension; J45.909 Unspecified asthma, uncomplicated; Z79.02 Long term (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 of antithrombotics/antiplatelets

== ENCOUNTER 2019-08-03 20:53 | Emergency (ER) | payer OTHER ==
--- NOTE | 2019-08-03 21:29 | ER Document Report ---
ED Medical Screen (RME) - General Chief Complaint: Psych Problem Stated Complaint: PSYCH Time Seen by Provider: 08/03/19 21:20 Primary Care Provider: KATERYNA GONSALEZ MD [Primary Care Provider] - Follow up as needed Notes: Patient is a 59-year-old female who presents to the emergency department stating, "I just want to live anymore." When asked if she wants to kill herself or hurt herself she replied "no." Denies any homicidal ideation. Patient has history of a stroke and patient states that she thinks that the stroke may be causing her to have her symptoms. Patient states that she is not on depression medication. Patient also states that she has not been sleeping well. Patient states that she takes Seroquel, but states that it does not help her sleep. Exam: Depressed mood. Clear breath sounds. I have greeted and performed a rapid initial assessment of this patient. A comprehensive ED assessment and evaluation of the patient, analysis of test results and completion of medical decision making process will be conducted by an additional ED providers. TRAVEL OUTSIDE OF THE [place] IN LAST 30 DAYS: No - Related Data Allergies/Adverse Reactions: Penicillins Allergy (Unknown, Verified 05/31/19 20:32) cephalexin monohydrate [From Keflex] Allergy (Verified 05/31/19 20:32) ciprofloxacin [From Cipro] Allergy (Verified 05/31/19 20:32) codeine Allergy (Verified 05/31/19 20:32) Iodinated Contrast Media [IV Dye, Iodine Containing] Allergy (Verified 05/31/19 20:32) latex [Latex] Allergy (Verified 05/31/19 20:32) metformin Allergy (Verified 05/31/19 20:32) nitrofurantoin macrocrystalline [From Macrodantin] Allergy (Verified 05/31/19 20:32) penicillin G Allergy (Verified 05/31/19 20:32) Sulfa (Sulfonamide Antibiotics) Allergy (Verified 05/31/19 20:32) tetracycline [Tetracycline] Allergy (Verified 05/31/19 20:32) nitroglycerin [From Nitrostat] Adverse Reaction (Verified 05/31/19 20:32) Past Medical History - Social History Family history: Reviewed & Not Pertinent - Past Medical History Cardiac Medical History: Reports: Hx Hypercholesterolemia, Hx Hypertension Pulmonary Medical History: Reports: Hx Asthma Neurological Medical History: Reports: Hx Cerebrovascular Accident, Hx Migraine Endocrine Medical History: Reports: Hx Diabetes Mellitus Type 1, Hx Diabetes Mellitus Type 2. Denies: Hx Hyperthyroidism, Hx Hypothyroidism Renal/ Medical History: Denies: Hx Peritoneal Dialysis Malignancy Medical History: Reports: Hx Cervical Cancer GI Medical History: Reports: Hx Gastroesophageal Reflux Disease. Denies: Hx Cirrhosis, Hx Hepatitis Musculoskeltal Medical History: Reports Hx Arthritis, Reports Hx Fibromyalgia, Reports Hx Musculoskeletal Deformity, Reports Hx Musculoskeletal Trauma Psychiatric Medical History: Reports: Hx Anxiety, Hx Depression Traumatic Medical History: Reports: Hx Fractures - Facial fractures bilateral toes elbow and left knee Infectious Medical History: Denies: Hx Hepatitis Past Surgical History: Reports: Hx Abdominal Surgery - hernia, Hx Section - 2, Hx Cholecystectomy, Hx Hysterectomy, Hx Orthopedic Surgery - bilateral toes and elbows left knee twice, Hx Tubal Ligation, Other - Ventral hernia and pseudocyst removal. Denies: Hx Appendectomy - Immunizations Immunizations up to date: Yes Hx Diphtheria, Pertussis, Tetanus Vaccination: Yes Physical Exam - Vital signs Vitals: Temp Pulse Resp BP Pulse Ox 98.1 F 83 18 126/65 H 95 08/03/19 21:04 08/03/19 21:04 08/03/19 21:04 08/03/19 21:04 08/03/19 21:04 Course - Vital Signs Vital signs: Temp Pulse Resp BP Pulse Ox 98.1 F 83 18 126/65 H 95 08/03/19 21:04 08/03/19 21:04 08/03/19 21:04 08/03/19 21:04 08/03/19 21:04 Doctor's Discharge - Discharge Referrals: KATERYNA GONSALEZ MD [Primary Care Provider] - Follow up as needed
[2019-08-03 21:58] LABS: ABSOLUTE BASOPHILS # (AUTO) 0.1 10^3/uL (0.0-0.2); ABSOLUTE EOSINOPHILS # (AUTO) 0.1 10^3/uL (0.0-0.6); ABSOLUTE LYMPHOCYTES (AUTO) 2.2 10^3/uL (0.5-4.7); ABSOLUTE MONOCYTES (AUTO) 0.7 10^3/uL (0.1-1.4); ABSOLUTE NEUT (AUTO) 4.6 10^3/uL (1.7-8.2); BASOPHILS % (AUTO) 0.7 % (0-2); EOSINOPHILS % (AUTO) 1.8 % (0-6); HEMATOCRIT 42.9 % (36.0-47.0); HEMOGLOBIN 14.8 g/dL (12.0-15.5); LYMPHOCYTES % (AUTO) 28.9 % (13-45); MEAN CORPUSCULAR HEMOGLOBIN 28.2 pg (27.0-33.4); MEAN CORPUSCULAR HGB CONC 34.6 g/dL (32.0-36.0); MEAN CORPUSCULAR VOLUME 82 fl (80-97); MONOCYTES % (AUTO) 8.6 % (3-13); PLATELET COUNT 218 10^3/uL (150-450); RED BLOOD COUNT 5.26 10^6/uL (3.72-5.28); RED CELL DISTRIBUTION WIDTH 14.3 % (11.5-14.0); TOTAL CELLS COUNTED % (AUTO) 100 %; WHITE BLOOD COUNT 7.7 10^3/uL (4.0-10.5)
[2019-08-03 22:12] LABS: ACETAMINOPHEN < 10 ug/mL (10-30); ALBUMIN 4.9 g/dL (3.5-5.0); ALCOHOL < 10 mg/dL (NONE DETECTED); ALKALINE PHOSPHATASE 67 U/L (38-126); ANION GAP 14 (5-19); ASPARTATE AMINO TRANSFERASE 23 U/L (14-36); BILIRUBIN,DIRECT 0.3 mg/dL (0.0-0.4); BILIRUBIN,TOTAL 0.6 mg/dL (0.2-1.3); BLOOD UREA NITROGEN 16 mg/dL (7-20); CALCIUM 9.7 mg/dL (8.4-10.2); CARBON DIOXIDE 28 mmol/L (22-30); CHLORIDE 96 mmol/L (98-107); GLUCOSE 329 mg/dL (75-110); POTASSIUM 4.2 mmol/L (3.6-5.0); SALICYLATE < 1.0 mg/dL (2.0-20.0)
[2019-08-03 22:24] LABS: APPEARANCE,URINE CLEAR; BILIRUBIN,URINE NEGATIVE (NEGATIVE); COLOR,URINE STRAW; GLUCOSE, URINE >=500 mg/dL (NEGATIVE); KETONES,URINE 20 mg/dL (NEGATIVE); LEUKOCYTE ESTERASE,URINE TRACE (NEGATIVE); NITRITE,URINE NEGATIVE (NEGATIVE); PROTEIN,URINE NEGATIVE (NEGATIVE); URINE SPECIFIC GRAVITY 1.025; UROBILINOGEN,URINE NEGATIVE mg/dL (<2.0)
[2019-08-03 22:42] LABS: URINE AMPHETAMINES SCREEN NEGATIVE; URINE BARBITURATES SCREEN NEGATIVE; URINE BENZODIAZEPINES SCREEN NEGATIVE; URINE COCAINE SCREEN NEGATIVE; URINE MARIJUANA (THC) SCREEN NEGATIVE; URINE METHADONE SCREEN NEGATIVE; URINE PHENCYCLIDINE SCREEN NEGATIVE
--- NOTE | 2019-08-04 | ER Document Report ---
ED General - General TRAVEL OUTSIDE OF THE [place] IN LAST 30 DAYS: No - Related Data Home Medications: seroquel, metoprolol, atorvastatin, hydrchlorthiazide, losartan, meclizine, protonix, plavix, farxiga, tresiba, lyrica <CARMINA BYRNES - Last Filed: 08/03/19 23:56> <VIKTORIYA STACK - Last Filed: 08/04/19 15:16> <DARCI,SEAN - Last Filed: 08/04/19 15:33> - General Chief Complaint: Psych Problem Stated Complaint: PSYCH Time Seen by Provider: 08/03/19 21:20 Primary Care Provider: [facility] [Provider Group] - Follow up as needed KATERYNA GONSALEZ MD [Primary Care Provider] - Follow up as needed - [facility] Notes: Patient is a 59-year-old female who presents to the emergency department for evaluation of depression. She states she is had significant depression since her stroke since October. She states over the last 3 days, however, she has been unable to get out of bed. She is excessively depressed. She denies anything that really brought this about. She has passive suicidal thoughts, wishes she would just , but has no plan. She does have a history of psychiatric hospi talization in the past. [facility] but states she did not think it was helping, did not like the therapist, so she stopped going. She denies any homicidal ideation. No visual or auditory hallucination. She has been taking her medications as prescribed, with the exception of her medications due to night, which she has not taken. (CARMINA BYRNES) - Related Data Allergies/Adverse Reactions: Penicillins Allergy (Unknown, Verified 08/03/19 21:27) cephalexin monohydrate [From Keflex] Allergy (Verified 08/03/19 21:27) ciprofloxacin [From Cipro] Allergy (Verified 08/03/19 21:27) codeine Allergy (Verified 08/03/19 21:27) Iodinated Contrast Media [IV Dye, Iodine Containing] Allergy (Verified 08/03/19 21:27) latex [Latex] Allergy (Verified 08/03/19 21:27) metformin Allergy (Verified 08/03/19 21:27) nitrofurantoin macrocrystalline [From Macrodantin] Allergy (Verified 08/03/19 21:27) penicillin G Allergy (Verified 08/03/19 21:27) Sulfa (Sulfonamide Antibiotics) Allergy (Verified 08/03/19 21:27) tetracycline [Tetracycline] Allergy (Verified 08/03/19 21:27) nitroglycerin [From Nitrostat] Adverse Reaction (Verified 08/03/19 21:27) Past Medical History - General Information source: Patient - Social History Smoking Status: Former Smoker Chew tobacco use (# tins/day): No Frequency of alcohol use: None Drug Abuse: None Family History: Arthritis, CVA, DM, Hyperlipidemia, Hypertension, Malignancy, Thyroid Disfunction Patient has suicidal ideation: No Patient has homicidal ideation: No - Past Medical History Cardiac Medical History: Reports: Hx Hypercholesterolemia, Hx Hypertension Pulmonary Medical History: Reports: Hx Asthma Neurological Medical History: Reports: Hx Cerebrovascular Accident, Hx Migraine Endocrine Medical History: Reports: Hx Diabetes Mellitus Type 1, Hx Diabetes Mellitus Type 2. Denies: Hx Hyperthyroidism, Hx Hypothyroidism Renal/ Medical History: Denies: Hx Peritoneal Dialysis Malignancy Medical History: Reports: Hx Cervical Cancer GI Medical History: Reports: Hx Gastroesophageal Reflux Disease. Denies: Hx Cirrhosis, Hx Hepatitis Musculoskeletal Medical History: Reports Hx Arthritis, Reports Hx Fibromyalgia, Reports Hx Musculoskeletal Deformity, Reports Hx Musculoskeletal Trauma Psychiatric Medical History: Reports: Hx Anxiety, Hx Depression Traumatic Medical History: Reports: Hx Fractures - Facial fractures bilateral toes elbow and left knee Infectious Medical History: Denies: Hx Hepatitis Past Surgical History: Reports: Hx Abdominal Surgery - hernia, Hx Section - 2, Hx Cholecystectomy, Hx Hysterectomy, Hx Orthopedic Surgery - bilateral toes and elbows left knee twice, Hx Tubal Ligation, Other - Ventral hernia and pseudocyst removal. Denies: Hx Appendectomy - Immunizations Immunizations up to date: Yes Hx Diphtheria, Pertussis, Tetanus Vaccination: Yes <CARMINA BYRNES M - Last Filed: 08/03/19 23:56> Review of Systems - Review of Systems Neurological/Psychological: See HPI -: Yes All other systems reviewed and negative <CARMINA BYRNES - Last Filed: 08/03/19 23:56> Physical Exam <CARMINA BYRNES - Last Filed: 08/03/19 23:56> - Vital signs Vitals: Temp Pulse Resp BP Pulse Ox 98.1 F 83 18 126/65 H 95 08/03/19 21:04 08/03/19 21:04 08/03/19 21:04 08/03/19 21:04 08/03/19 21:04 - Notes Notes: This is a very pleasant 59-year-old female who appears older than her stated age in no acute distress. She is resting comfortably when I walked into the room. She is calm, cooperative, makes good eye contact. Vital signs reviewed, please refer to chart. Head is normocephalic, atraumatic. Pupils equal round, reactive to light. Neck is supple without meningismus. Heart is regular rate and rhyt hm. Lungs are clear to auscultation bilaterally. Abdomen is soft, nontender, normoactive bowel sounds throughout. Extremities without cyanosis, clubbing. Posterior calves are nontender. Peripheral pulses are equal. Skin is warm and dry. Patient is awake, alert, oriented x3. She has slurred speech, stable since CVA, as well as some left-sided weakness. (CARMINA BYRNES) Course - Laboratory Result Diagrams: 08/03/19 21:30 08/03/19 21:30 <CARMINA BYRNES - Last Filed: 08/03/19 23:56> - Laboratory Result Diagrams: 08/03/19 21:30 08/03/19 21:30 <VIKTORIYA STACK - Last Filed: 08/04/19 15:16> - Laboratory Result Diagrams: 08/03/19 21:30 08/03/19 21:30 <BECKY BEJARANO - Last Filed: 08/04/19 15:33> - Re-evaluation Re-evalutation: 08/03/19 23:59 Patient presents to the emergency department for evaluation. She has multiple medical issues, presented with suicidal thoughts and passive suicidal ideation. She is not actively suicidal. She does, however, have complicated medical issues and significant depression, would be very appropriate for therapy and other appropriate medication changes. Her blood glucose is elevated here, but she did not take her Tresiba. We will continue all her home medications. Otherwise she is medically cleared for psychiatric evaluation in the morning. (CARMINA BYRNES) 08/04/19 15:29 Patient is an afebrile, well-hydrated, 59-year-old female who presents for passive SI. Vitals are acceptable without significant tachycardia, tachypnea, o r hypoxia. PE is otherwise unremarkable. Patient is nontoxic-appearing and is tolerating p.o. without difficulty. Patient has been medically cleared. She was evaluated by her mental health team and cleared by them as well. Medicine recommendations have been made: "Medication recommendations per [facility] contracted psychiatrist Dr. Nadiya MD are as follows: Discontinue Seroquel Add Buspar 5MG, in the morning Add Buspar 10MG, in the evening" Low suspicion for any sepsis, endocarditis, acute intracranial pathology, meningitis, fracture, acute abdomen, acute withdrawal, or other systemic i nfection at this time. Patient and spouse aware that this condition can change from initial presentation and needs to monitor symptoms closely for any acute changes. Conservative measures otherwise for symptoms. Recheck with your PCM in 3-5 days or as needed otherwise. Return to the ED with any worsening/concerning symptoms otherwise as reviewed discharge. Patient and spouse in agreement. (BECKY BEJARANO) - Vital Signs Vital signs: Temp Pulse Resp BP Pulse Ox 98.6 F 60 16 110/65 94 08/04/19 05:00 08/04/19 05:00 08/04/19 05:00 08/04/19 05:00 08/04/19 05:00 - Laboratory Laboratory results interpreted by me: 08/03/19 08/03/19 08/03/19 21:30 21:30 21:30 RDW 14.3 H Chloride 96 L Glucose 329 H POC Glucose Urine Glucose (UA) >=500 H Urine Ketones 20 H Ur Leukocyte Esterase TRACE H Salicylates < 1.0 L Acetaminophen < 10 L 08/04/19 08/04/19 08:43 12:53 RDW Chloride Glucose POC Glucose 157 H 184 H Urine Glucose (UA) Urine Ketones Ur Leukocyte Esterase Salicylates Acetaminophen - EKG Interpretation by Me Additional EKG results interpreted by me: 08/04/19 00:00 Sinus mechanism. Normal axis and intervals. No acute ST changes concerning for ischemia or infarction. (CARMINA BYRNES) Discharge <CARMINA BYRNES - Last Filed: 08/03/19 23:56> <VIKTORIYA STACK - Last Filed: 08/04/19 15:16> <BECKY BEJARANO - Last Filed: 08/04/19 15:33> - Discharge Clinical Impression: Passive suicidal ideations Condition: Stable Disposition: HOME, SELF-CARE Additional Instructions: You have been evaluated by both medical and behavioral health teams for d epression and have been deemed appropriate for discharge. While in the emergency department you received the following services: Medical screening and assessment, nursing services, dietary services, pharmacological services, one-on-one counseling and/or psychotherapy, environmental services, and con tinuous observation by a patient director of public safety. Medication recommendations have been have been provided and are as follows: Discontinue Seroquel; add Buspar 5MG, in the morning; add Buspar 10MG, in the evening. Please take your medications as prescribed as the medication appear to have stabilized your mood and overall mental health. Please do not stop these medications without discussing with your prescribing physician. You have been provided with a mental health resource list with the contact information for [facility] highlighted. Depression Your evaluation reveals that you have mental depression. While symptoms may be vague, they often include disturbance of sleep, fatigue, loss of appetite, and general loss of interest in life. While depression may be a side effect of drugs, or a reaction to a major change in your life, many cases have no known cause. If depression is acute, and related to a major loss in your life, you can expect it to clear completely with time. If you have been depressed a long time, are prone to repeated bouts of depression or low mood, or have been thinking of suicide, get help. Depression can be treated with anti-depressant medication and counselling. Long-term depression will often take a few weeks to clear, even with appropriate medication. Follow-up care is important. Contact your physician, the hospital emergency center, crisis line, or your counsellor if you are losing control or having self-destructive thoughts. AT ANY TIME, IF YOUR SYMPTOMS CHANGE SIGNIFICANTLY OR WORSEN OR YOU DEVELOP NEW SYMPTOMS, RETURN TO THE EMERGENCY DEPARTMENT IMMEDIATELY FOR RE-EVALUATION. Maintain adequate fluid and food intake Healthy diet tylenol/motrin if needed Monitor for any worsening symptoms Make sure you are staying hydrated enough to urinate and have normal BM's Recheck with your PCM in 3-5 days or as needed Keep/schedule appointment with mental health facility Return to the ED with any worsening symptoms and/or development of fever, headache, changes in behavior/mentation/vision/speech, chest pain, palpitations, syncope, shortness of breath, trouble breathing, abdominal pain, n/v/d, blood in stool/urine, loss of control of bowel/bladder, urinary retention, muscle weakness/paralysis, saddle anesthesia, numbness/tingling, suicidal/homicidal ideations, visual/auditory hallucinations, or other worsening symptoms that are concerning to you. Medication recommendations per [facility] contracted psychiatrist Dr. Nadiya MD are as follows: Discontinue Seroquel Add Buspar 5MG, in the morning Add Buspar 10MG, in the evening Prescriptions: Buspirone HCl [Buspar 10 mg Tablet] 10 mg PO QHS #30 tab Buspirone HCl 1 tab PO QAM #30 tab Referrals: KATERYNA GONSALEZ MD [Primary Care Provider] - Follow up as needed [facility] [Provider Group] - Follow up as needed
[2019-08-04] MEDS ORDERED: ACETAMINOPHEN PO PRN (00:27)
[2019-08-04] MEDS ORDERED: PREGABALIN 75 MG CAPSULE PO PRN (00:33)
[2019-08-04] MEDS ORDERED: MECLIZINE HCL 25 MG TABLET PO PRN (00:33)
--- NOTE | 2019-08-04 07:27 | EKG REPORT ---
SEVERITY:- BORDERLINE ECG - SINUS RHYTHM : Confirmed by: Rakesh Hernandez MD 04-Aug-2019 07:26:12
[2019-08-04] MEDS ORDERED: PANTOPRAZOLE SODIUM 20 MG TABLET.DR PO SCH (08:00)
[2019-08-04] MEDS ORDERED: (PENDING PHARMACY ID) (Insulin Degludec [Tresiba Flextouch U-100] 30 UNIT) SQ SCH (10:00)
[2019-08-04] MEDS ORDERED: METOPROLOL SUCCINATE 25 MG TAB.SR.24H PO SCH (10:00)
[2019-08-04] MEDS ORDERED: HYDROCHLOROTHIAZIDE 12.5 MG TABLET PO SCH (10:00)
[2019-08-04] MEDS ORDERED: CLOPIDOGREL BISULFATE 75 MG TABLET PO SCH (10:00)
[2019-08-04] MEDS ORDERED: LOSARTAN POTASSIUM 50 MG TABLET PO SCH (10:00)
[2019-08-04] MEDS ORDERED: ASPIRIN 81 MG TABLET, ENT COATED PO SCH (10:00)
[2019-08-04] MEDS ORDERED: BUSPIRONE HCL 10 MG TABLET PO ONE (10:48)
--- NOTE | 2019-08-04 13:38 | PSYCHOLOGICAL NOTE ---
Psych Note - Psych Note Date seen by psych provider: 08/04/19 Time seen by psych provider: 07:40 Psych Note: Patient is a 59-year-old female who presents to ED via EMS with concerns for increased depression for 3 days. Patient reports she had a stroke in October. Patient states she has experienced increased depression for 3 days as described as "no wanting to do nuthin, not wanting to get out of the bed." Patient expressed concerns for lack of sleep. Patient states she struggled with depression for "a long time." Patient requests "something for depression." Patient states she has a strong support system in family and friends. Patient describes as unsympathetic at times. Patient endorses passive suicidal ideation (no plan, desire, or intent) related to adjusting to a decrease in quality of life as a result of the stroke. Patient does not have a mental health provider. Clinician spoke with patient's , Bk ([phone]). reported no concerns for suicidal behaviors/gestures. states patient has been frustrated because "her body is not healing as quickly as she would like from the stroke." verbalized no concerns for discharge. was agreeable to be responsible for medication management and administration, increasing observation for signs of emotional distress, and removing access to items in the home that can be used for purposes of suicide. Clinician spoke with patient and together to explain plan of care. Patient and verbalize no concerns with discharge. Patient is alert and oriented to person, place, time and circumstance. Mood is normal with congruent affect. Patient endorses passive suicidal ideation. Patient denies homicidal ideation. Delusions are absent and behavior is congruent with an intact reality based presentation (i.e., organized and linear through processes). There is no observed behavior that suggests patient is responding to internal stimuli. Patient is able to engage in organized, rational thought processes. Patient is able to express needs and wants in a logical manner. Patient denies current auditory and visual hallucinations. Eye contact is appropriate. Conversational speech is impacted by stroke, however patient is easily understood. Intellectual ability appears to be within average range. Attention and concentration are good. Insight, judgment and impulse control are currently good. Medication recommendations per [facility] contracted psychiatrist Dr. Nadiya MD are as follows: Discontinue Seroquel Add Buspar 5MG, in the morning Add Buspar 10MG, in the evening Impression/Plan: Patient is cleared from acute psychiatric services. Medication recommendations have been provided. Patient is experiencing an increase in depressive symptoms as she adjusts to a different quality of life as a result of her stroke. Patient's was agreeable to be responsible for medication management and administration, increasing observation for signs of emotional distress, and removing access to items in the home that can be used for purposes of suicide. Patient would benefit from mental health services to develop coping and distress tolerance skills to adjust to her new normal. Patient was provided with a mental health resource list with [facility] highlighted. Patient was encouraged to speak with Dr. Hidalgo, patient's "stroke Doctor" regarding her concerns. Dr. Godfrey was consulted on the care and management of this patient; attending physician is in agreement with recommendations and disposition.
[2019-08-04 15:55] VITALS: BP 121/65
[2019-08-04] MEDS ORDERED: QUETIAPINE FUMARATE 100 MG TABLET PO SCH (22:00)
[2019-08-04] MEDS ORDERED: ATORVASTATIN CALCIUM 80 MG TABLET PO SCH (22:00)
== END 2019-08-04 15:56 | disposition home or self-care (01) ==
LOC: ER 20:53
DX: R45.851 Suicidal ideations (principal); F32.9 Major depressive disorder, single episode, unspecified; E78.00 Pure hypercholesterolemia, unspecified; I10 Essential (primary) hypertension; J45.909 Unspecified asthma, uncomplicated; E11.65 Type 2 diabetes mellitus with hyperglycemia; K21.9 Gastro-esophageal reflux disease without esophagitis; I69.328 Other speech and language deficits following cerebral infarction; I69.354 Hemiplegia and hemiparesis following cerebral infarction affecting left non-dominant side; Z79.02 Long term (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 of antithrombotics/antiplatelets; Z79.899 Other long term (current) drug therapy; Z79.4 Long term (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 of insulin; Z87.891 Personal history of nicotine dependence; Z88.0 Allergy status to penicillin; Z88.1 Allergy status to other antibiotic agents; Z88.6 Allergy status to analgesic agent; Z88.5 Allergy status to narcotic agent; Z91.041 Radiographic dye allergy status; Z91.040 Latex allergy status; Z88.2 Allergy status to sulfonamides
CPT/HCPCS: 93005; 99285; 36415; 82962; 80307 ×4; 85025; 80053; 81001; 93010; J3490

== ENCOUNTER 2019-08-07 17:09 | Emergency (ER) | payer OTHER ==
--- NOTE | 2019-08-07 17:24 | ER Document Report ---
ED Medical Screen (RME) - General Chief Complaint: Flank Pain Stated Complaint: SWOLLEN GENITAL/LOWER ABDOMINAL PAIN Time Seen by Provider: 08/07/19 17:19 Primary Care Provider: KATERYNA GONSALEZ MD [Primary Care Provider] - Follow up as needed Notes: HPI: 59-year-old female with history of stroke with left-sided deficits, hysterectomy, cholecystectomy, type 2 diabetes presenting to the emergency department complaining of left pelvic pain, increased frequency of urination, vaginal swelling over the last 24 hours. No fever. Has had slight nausea no vomiting I have greeted and performed a rapid initial assessment of this patient. A comprehensive ED assessment and evaluation of the patient, analysis of test results and completion of the medical decision making process will be conducted by additional ED providers PHYSICAL EXAMINATION: GENERAL: Well-appearing, well-nourished and in mild acute distress. HEAD: Atraumatic, normocephalic. EYES: sclera anicteric, conjunctiva are normal. ENT: Moist mucous membranes. NECK: Normal range of motion LUNGS: Normal work of breathing, clear to auscultation HEART: 2+ radial pulses bilaterally, regular rate and rhythm ABD: limited by positioning for exam in triage. Mild tenderness in the left lower quadrant left pelvis on palpation EXTREMITIES: no pitting or edema. No cyanosis. NEUROLOGICAL: Moves all extremities spontaneously and on command. PSYCH: Normal mood, normal affect. SKIN: Warm, Dry, normal turgor, no rashes or lesions noted. TRAVEL OUTSIDE OF THE [place] IN LAST 30 DAYS: No - Related Data Allergies/Adverse Reactions: Penicillins Allergy (Unknown, Verified 08/07/19 17:15) cephalexin monohydrate [From Keflex] Allergy (Verified 08/07/19 17:15) ciprofloxacin [From Cipro] Allergy (Verified 08/07/19 17:15) codeine Allergy (Verified 08/07/19 17:15) Iodinated Contrast Media [IV Dye, Iodine Containing] Allergy (Verified 08/07/19 17:15) latex [Latex] Allergy (Verified 08/07/19 17:15) metformin Allergy (Verified 08/07/19 17:15) nitrofurantoin macrocrystalline [From Macrodantin] Allergy (Verified 08/07/19 17:15) penicillin G Allergy (Verified 08/07/19 17:15) Sulfa (Sulfonamide Antibiotics) Allergy (Verified 08/07/19 17:15) tetracycline [Tetracycline] Allergy (Verified 08/07/19 17:15) nitroglycerin [From Nitrostat] Adverse Reaction (Verified 08/07/19 17:15) Past Medical History - Social History Chew tobacco use (# tins/day): No Frequency of alcohol use: None Drug Abuse: None Family history: Reviewed & Not Pertinent - Past Medical History Cardiac Medical History: Reports: Hx Hypercholesterolemia, Hx Hypertension Pulmonary Medical History: Reports: Hx Asthma Neurological Medical History: Reports: Hx Cerebrovascular Accident, Hx Migraine Endocrine Medical History: Reports: Hx Diabetes Mellitus Type 1, Hx Diabetes Mellitus Type 2. Denies: Hx Hyperthyroidism, Hx Hypothyroidism Renal/ Medical History: Denies: Hx Peritoneal Dialysis Malignancy Medical History: Reports: Hx Cervical Cancer GI Medical History: Reports: Hx Gastroesophageal Reflux Disease. Denies: Hx Cirrhosis, Hx Hepatitis Musculoskeltal Medical History: Reports Hx Arthritis, Reports Hx Fibromyalgia, Reports Hx Musculoskeletal Deformity, Reports Hx Musculoskeletal Trauma Psychiatric Medical History: Reports: Hx Anxiety, Hx Depression Traumatic Medical History: Reports: Hx Fractures - Facial fractures bilateral toes elbow and left knee Infectious Medical History: Denies: Hx Hepatitis Past Surgical History: Reports: Hx Abdominal Surgery - hernia, Hx Section - 2, Hx Cholecystectomy, Hx Hysterectomy, Hx Orthopedic Surgery - bilateral toes and elbows left knee twice, Hx Tubal Ligation, Other - Ventral hernia and pseudocyst removal. Denies: Hx Appendectomy - Immunizations Immunizations up to date: Yes Hx Diphtheria, Pertussis, Tetanus Vaccination: Yes Physical Exam - Vital signs Vitals: Temp Pulse Resp BP Pulse Ox 97.7 F 76 16 153/86 H 99 08/07/19 17:16 08/07/19 17:16 08/07/19 17:16 08/07/19 17:16 08/07/19 17:16 Course - Vital Signs Vital signs: Temp Pulse Resp BP Pulse Ox 97.7 F 76 16 153/86 H 99 08/07/19 17:16 08/07/19 17:16 08/07/19 17:16 08/07/19 17:16 08/07/19 17:16 Doctor's Discharge - Discharge Referrals: KATERYNA GONSALEZ MD [Primary Care Provider] - Follow up as needed
[2019-08-07 17:56] LABS: ABSOLUTE BASOPHILS # (AUTO) 0.1 10^3/uL (0.0-0.2); ABSOLUTE EOSINOPHILS # (AUTO) 0.1 10^3/uL (0.0-0.6); ABSOLUTE LYMPHOCYTES (AUTO) 2.4 10^3/uL (0.5-4.7); ABSOLUTE MONOCYTES (AUTO) 0.7 10^3/uL (0.1-1.4); ABSOLUTE NEUT (AUTO) 4.9 10^3/uL (1.7-8.2); BASOPHILS % (AUTO) 0.9 % (0-2); EOSINOPHILS % (AUTO) 1.4 % (0-6); HEMATOCRIT 44.6 % (36.0-47.0); HEMOGLOBIN 15.6 g/dL (12.0-15.5); LYMPHOCYTES % (AUTO) 29.2 % (13-45); MEAN CORPUSCULAR HEMOGLOBIN 28.6 pg (27.0-33.4); MEAN CORPUSCULAR HGB CONC 35.1 g/dL (32.0-36.0); MEAN CORPUSCULAR VOLUME 82 fl (80-97); PLATELET COUNT 218 10^3/uL (150-450); RED BLOOD COUNT 5.46 10^6/uL (3.72-5.28); RED CELL DISTRIBUTION WIDTH 13.9 % (11.5-14.0); SEGMENTED NEUTROPHILS % (AUTO) 59.5 % (42-78); TOTAL CELLS COUNTED % (AUTO) 100 %; WHITE BLOOD COUNT 8.2 10^3/uL (4.0-10.5)
[2019-08-07 18:00] LABS: APPEARANCE,URINE CLEAR; BILIRUBIN,URINE NEGATIVE (NEGATIVE); COLOR,URINE STRAW; GLUCOSE, URINE >=500 mg/dL (NEGATIVE); KETONES,URINE 20 mg/dL (NEGATIVE); LEUKOCYTE ESTERASE,URINE NEGATIVE (NEGATIVE); NITRITE,URINE NEGATIVE (NEGATIVE); PROTEIN,URINE NEGATIVE (NEGATIVE); URINE SPECIFIC GRAVITY 1.037; UROBILINOGEN,URINE NEGATIVE mg/dL (<2.0)
[2019-08-07 18:12] LABS: ALBUMIN 5.1 g/dL (3.5-5.0); ALKALINE PHOSPHATASE 68 U/L (38-126); ANION GAP 12 (5-19); ASPARTATE AMINO TRANSFERASE 26 U/L (14-36); BILIRUBIN,DIRECT 0.3 mg/dL (0.0-0.4); BILIRUBIN,TOTAL 0.8 mg/dL (0.2-1.3); BLOOD UREA NITROGEN 14 mg/dL (7-20); CALCIUM 9.7 mg/dL (8.4-10.2); CARBON DIOXIDE 30 mmol/L (22-30); CHLORIDE 95 mmol/L (98-107); GLUCOSE 299 mg/dL (75-110); TOTAL PROTEIN 8.5 g/dL (6.3-8.2)
[2019-08-07 19:22] LABS: RBCS (WET MOUNT) 2+ RBCS SEEN; T.VAGINALIS (WET MOUNT) NO TRICHOMONAS SEEN; WBCS (WET MOUNT) 4+ WBCS SEEN; YEAST (WET MOUNT) YEAST SEEN
[2019-08-07 19:23] LABS: BACTERIA (WET MOUNT) 4+ BACTERIA SEEN; EPITHELIALS (WET MOUNT) 4+ EPITHELIALS SEEN
--- NOTE | 2019-08-07 19:29 | RADIOLOGY REPORT (SQ) ---
EXAM DESCRIPTION: U/S NON OB PEL TV W/DOPPLER COMPLETED DATE/TIME: 08/07/2019 5:43 pm REASON FOR STUDY: left pelvic pain. Previous hysterectomy. COMPARISON: None. TECHNIQUE: Dynamic and static grayscale images acquired of the pelvis via transvaginal approach and recorded on PACS. Additional selected color Doppler and spectral images recorded. LIMITATIONS: None. FINDINGS: UTERUS: Surgically absent. CERVIX: Normal contour. No cervical mass. RIGHT OVARY AND DOPPLER: Not visualized, possibly surgically absent. No adnexal mass. LEFT OVARY AND DOPPLER: Not visualized, possibly surgically absent. No adnexal mass. FREE FLUID: None noted. OTHER: No other significant finding. Scratched IMPRESSION: Status post hysterectomy. No adnexal mass. TECHNICAL DOCUMENTATION: JOB ID: [id number] [employer]- All Rights Reserved Rev-10/17 Reading location - IP/workstation name: [email or web address]
[2019-08-07] MEDS ORDERED: OXYCODONE-ACETAMINOPHEN 5-325 MG TABLET PO ONE (20:01)
[2019-08-07 20:42] LABS: CHLAM PCR NOT DETECTED (NOT DETECT)
--- NOTE | 2019-08-07 20:53 | RADIOLOGY REPORT (SQ) ---
EXAM DESCRIPTION: CT abdomen and pelvis without contrast CLINICAL HISTORY: 59 years Female, pelvic pain/LLQ pain COMPARISON: CT abdomen and pelvis 06/19/2017 TECHNIQUE: Axial images of the abdomen and pelvis were performed without the use of intravenous contrast, with sagittal and coronal reformatted images. This exam was performed according to our departmental dose-optimization program which includes use of Automated Exposure Control, adjustment of the mA and/or kV according to patient size and/or use of iterative reconstruction technique. FINDINGS: There is diverticulosis without diverticulitis. There are atherosclerotic changes involving the abdominal aorta, but there is no aneurysm. There is pancreatic atrophy. There is no significant radiographic abnormality of the liver, spleen, adrenal glands or kidneys. There is a possible small left upper pole renal cyst. There is a normal-appearing retrocecal appendix. No mass or adenopathy. No free air or free fluid. IMPRESSION: No acute finding. Other findings as described.
--- NOTE | 2019-08-07 20:58 | ER Document Report ---
ED GI/ - General Chief Complaint: Flank Pain Stated Complaint: SWOLLEN GENITAL/LOWER ABDOMINAL PAIN Time Seen by Provider: 08/07/19 17:19 Primary Care Provider: KATERYNA GONSALEZ MD [Primary Care Provider] - Follow up as needed Mode of Arrival: Ambulatory Information source: Patient Notes: HPI: 59-year-old female with history of stroke with left-sided deficits, hysterectomy, cholecystectomy, type 2 diabetes presenting to the emergency department complaining of left pelvic pain, increased frequency of urination, vaginal swelling over the last 24 hours. No fever. Has had slight nausea no vomiting TRAVEL OUTSIDE OF THE [place] IN LAST 30 DAYS: No - Related Data Allergies/Adverse Reactions: Penicillins Allergy (Unknown, Verified 08/07/19 17:15) cephalexin monohydrate [From Keflex] Allergy (Verified 08/07/19 17:15) ciprofloxacin [From Cipro] Allergy (Verified 08/07/19 17:15) codeine Allergy (Verified 08/07/19 17:15) Iodinated Contrast Media [IV Dye, Iodine Containing] Allergy (Verified 08/07/19 17:15) latex [Latex] Allergy (Verified 08/07/19 17:15) metformin Allergy (Verified 08/07/19 17:15) nitrofurantoin macrocrystalline [From Macrodantin] Allergy (Verified 08/07/19 17:15) penicillin G Allergy (Verified 08/07/19 17:15) Sulfa (Sulfonamide Antibiotics) Allergy (Verified 08/07/19 17:15) tetracycline [Tetracycline] Allergy (Verified 08/07/19 17:15) nitroglycerin [From Nitrostat] Adverse Reaction (Verified 08/07/19 17:15) Past Medical History - General Information source: Patient - Social History Smoking Status: Never Smoker Chew tobacco use (# tins/day): No Frequency of alcohol use: None Drug Abuse: None Family History: Arthritis, CVA, DM, Hyperlipidemia, Hypertension, Malignancy, Thyroid Disfunction Patient has suicidal ideation: No Patient has homicidal ideation: No - Past Medical History Cardiac Medical History: Reports: Hx Hypercholesterolemia, Hx Hypertension Pulmonary Medical History: Reports: Hx Asthma Neurological Medical History: Reports: Hx Cerebrovascular Accident, Hx Migraine Endocrine Medical History: Reports: Hx Diabetes Mellitus Type 1, Hx Diabetes Mellitus Type 2. Denies: Hx Hyperthyroidism, Hx Hypothyroidism Renal/ Medical History: Denies: Hx Peritoneal Dialysis Malignancy Medical History: Reports: Hx Cervical Cancer GI Medical History: Reports: Hx Gastroesophageal Reflux Disease. Denies: Hx Cirrhosis, Hx Hepatitis Musculoskeletal Medical History: Reports Hx Arthritis, Reports Hx Fibromyalgia, Reports Hx Musculoskeletal Deformity, Reports Hx Musculoskeletal Trauma Psychiatric Medical History: Reports: Hx Anxiety, Hx Depression Traumatic Medical History: Reports: Hx Fractures - Facial fractures bilateral toes elbow and left knee Infectious Medical History: Denies: Hx Hepatitis Past Surgical History: Reports: Hx Abdominal Surgery - hernia, Hx Section - 2, Hx Cholecystectomy, Hx Hysterectomy, Hx Orthopedic Surgery - bilateral toes and elbows left knee twice, Hx Tubal Ligation, Other - Ventral hernia and pseudocyst removal. Denies: Hx Appendectomy - Immunizations Immunizations up to date: Yes Hx Diphtheria, Pertussis, Tetanus Vaccination: Yes Review of Systems - Review of Systems Gastrointestinal: Abdominal pain Genitourinary: Frequency Female Genitourinary: Other - vaginal swelling/rash -: Yes All other systems reviewed and negative Physical Exam - Vital signs Vitals: Temp Pulse Resp BP Pulse Ox 97.7 F 76 16 153/86 H 99 08/07/19 17:16 08/07/19 17:16 08/07/19 17:16 08/07/19 17:16 08/07/19 17:16 - Notes Notes: PHYSICAL EXAMINATION: GENERAL: Well-appearing, well-nourished and in no acute distress. HEAD: Atraumatic, normocephalic. EYES: Pupils equal round and reactive to light, extraocular movements intact, conjunctiva are normal. ENT: Nares patent, oropharynx clear without exudates. Moist mucous membranes. NECK: Normal range of motion, supple without lymphadenopathy LUNGS: Breath sounds clear to auscultation bilaterally and equal. No wheezes rales or rhonchi. HEART: Regular rate and rhythm without murmurs ABDOMEN: Soft, nondistended abdomen. Left lower quadrant tenderness with palpation. No guarding, no rebound. No masses appreciated. Female : Labial swelling noted, normal internal vaginal exam. Musculoskeletal: Normal range of motion, no pitting or edema. No cyanosis. NEUROLOGICAL: Cranial nerves grossly intact. Normal speech, normal gait. Normal sensory, motor exams PSYCH: Normal mood, normal affect. SKIN: Warm, Dry, normal turgor, no rashes or lesions noted. Course - Re-evaluation Re-evalutation: Laboratory 08/07/19 08/07/19 08/07/19 17:28 17:41 17:41 WBC 8.2 RBC 5.46 H Hgb 15.6 H Hct 44.6 MCV 82 MCH 28.6 MCHC 35.1 RDW 13.9 Plt Count 218 Lymph % (Auto) 29.2 [place] % (Auto) 9.0 Eos % (Auto) 1.4 Baso % (Auto) 0.9 Absolute Neuts (auto) 4.9 Absolute Lymphs (auto) 2.4 Absolute Monos (auto) 0.7 Absolute Eos (auto) 0.1 Absolute Basos (auto) 0.1 Seg Neutrophils % 59.5 Sodium 137.2 Potassium 4.0 Chloride 95 L Carbon Dioxide 30 Anion Gap 12 BUN 14 Creatinine 0.52 Est GFR ( Amer) > 60 Est GFR (MDRD) Non-Af > 60 Glucose 299 H POC Glucose Calcium 9.7 Total Bilirubin 0.8 Direct Bilirubin 0.3 Neonat Total Bilirubin Not Reportable Neonat Direct Bilirubin Not Reportable Neonat Indirect Bili Not Reportable AST 26 ALT 37 H Alkaline Phosphatase 68 Total Protein 8.5 H Albumin 5.1 H Urine Color STRAW Urine Appearance CLEAR Urine pH 5.0 Ur Specific [place] 1.037 Urine Protein NEGATIVE Urine Glucose (UA) >=500 H Urine Ketones 20 H Urine Blood NEGATIVE Urine Nitrite NEGATIVE Urine Bilirubin NEGATIVE Urine Urobilinogen NEGATIVE Ur Leukocyte Esterase NEGATIVE Urine WBC (Auto) 2 Urine RBC (Auto) 1 Squamous Epi Cells Auto 1 Urine Mucus (Auto) RARE Urine Ascorbic Acid NEGATIVE Epi Cells (Wet Prep) Bacteria (Wet Prep) Trichomonas (Wet Prep) Vaginal WBC Vaginal RBC Vaginal Yeast Chlamydia DNA (PCR) N.gonorrhoeae DNA (PCR) 08/07/19 08/07/19 08/07/19 18:58 18:58 20:30 WBC RBC Hgb Hct MCV MCH MCHC RDW Plt Count Lymph % (Auto) [place] % (Auto) Eos % (Auto) Baso % (Auto) Absolute Neuts (auto) Absolute Lymphs (auto) Absolute Monos (auto) Absolute Eos (auto) Absolute Basos (auto) Seg Neutrophils % Sodium Potassium Chloride Carbon Dioxide Anion Gap BUN Creatinine Est GFR ( Amer) Est GFR (MDRD) Non-Af Glucose POC Glucose 216 H Calcium Total Bilirubin Direct Bilirubin Neonat Total Bilirubin Neonat Direct Bilirubin Neonat Indirect Bili AST ALT Alkaline Phosphatase Total Protein Albumin Urine Color Urine Appearance Urine pH Ur Specific [place] Urine Protein Urine Glucose (UA) Urine Ketones Urine Blood Urine Nitrite Urine Bilirubin Urine Urobilinogen Ur Leukocyte Esterase Urine WBC (Auto) Urine RBC (Auto) Squamous Epi Cells Auto Urine Mucus (Auto) Urine Ascorbic Acid Epi Cells (Wet Prep) 4+ EPITHELIALS SEEN Bacteria (Wet Prep) 4+ BACTERIA SEEN Trichomonas (Wet Prep) NO TRICHOMONAS SEEN Vaginal WBC 4+ WBCS SEEN Vaginal RBC 2+ RBCS SEEN Vaginal Yeast YEAST SEEN Chlamydia DNA (PCR) NOT DETECTED N.gonorrhoeae DNA (PCR) NOT DETECTED Transvaginal US 08/07/19 17:23 IMPRESSION: Status post hysterectomy. No adnexal mass. Abdomen/Pelvis CT 08/07/19 19:32 IMPRESSION: No acute finding. Other findings as described. - Vital Signs Vital signs: Temp Pulse Resp BP Pulse Ox 97.6 F 79 18 146/88 H 98 08/07/19 21:05 08/07/19 21:05 08/07/19 21:05 08/07/19 21:05 08/07/19 21:05 - Laboratory Result Diagrams: 08/07/19 17:41 08/07/19 17:41 Laboratory results interpreted by me: 08/07/19 08/07/19 08/07/19 17:28 17:41 17:41 RBC 5.46 H Hgb 15.6 H Chloride 95 L Glucose 299 H POC Glucose ALT 37 H Total Protein 8.5 H Albumin 5.1 H Urine Glucose (UA) >=500 H Urine Ketones 20 H 08/07/19 20:30 RBC Hgb Chloride Glucose POC Glucose 216 H ALT Total Protein Albumin Urine Glucose (UA) Urine Ketones Discharge - Discharge Clinical Impression: Genital swelling, Rash of genital area, Bacterial vaginosis, Vaginal yeast infection Condition: Stable Disposition: HOME, SELF-CARE Additional Instructions: You have an overgrowth of natural vaginal bacteria, called bacterial vaginosis. You are being treated with an antibiotic called metronidazole. Do not drink alcohol while taking this medication. Complete all of the antibiotic even if your symptoms have resolved. Return for abdominal pain, vomiting, fever of greater than 101F, or any other symptoms that are worrisome to you. Please follow-up with your [facility] UP AND LAY OUT INSPECTOR or primary care doctor as needed. You have an overgrowth of natural vaginal bacteria, called bacterial vaginosis. You are being treated with an antibiotic called metronidazole. Do not drink alcohol while taking this medication. Complete all of the antibiotic even if your symptoms have resolved. Return for abdominal pain, vomiting, fever of greater than 101F, or any other symptoms that are worrisome to you. Please follow-up with your [facility] UP AND LAY OUT INSPECTOR or primary care doctor as needed. Prescriptions: Metronidazole [Flagyl 500 mg Tablet] 500 mg PO BID #14 tablet Miscellaneous Medication [Happy Hiney Cream] 1 applic TOP ASDIR PRN #[id number] PRN Reason: Referrals: KATERYNA GONSALEZ MD [Primary Care Provider] - Follow up as needed
[2019-08-07] MEDS ORDERED: FLUCONAZOLE 100 MG TABLET PO ONE (21:02)
[2019-08-07] MEDS ORDERED: METRONIDAZOLE 500 MG TABLET PO ONE (21:02)
[2019-08-07 21:07] VITALS: BP 146/88
== END 2019-08-07 21:30 | disposition home or self-care (01) ==
LOC: ER 17:09
DX: N76.0 Acute vaginitis (principal); B96.89 Other specified bacterial agents as the cause of diseases classified elsewhere; R21 Rash and other nonspecific skin eruption; R22.9 Localized swelling, mass and lump, unspecified; R10.30 Lower abdominal pain, unspecified; R35.0 Frequency of micturition; E78.00 Pure hypercholesterolemia, unspecified; E11.9 Type 2 diabetes mellitus without complications; I10 Essential (primary) hypertension; Z90.710 Acquired absence of both cervix and uterus; Z86.73 Personal history of transient ischemic attack (TIA), and cerebral infarction without residual deficits; Z88.0 Allergy status to penicillin; Z90.49 Acquired absence of other specified parts of digestive tract; Z88.3 Allergy status to other anti-infective agents; Z88.6 Allergy status to analgesic agent; Z91.040 Latex allergy status; Z88.2 Allergy status to sulfonamides
CPT/HCPCS: 36415; 74176; 76830; 80053; 81001; 82962; 85025; 87210; 87491; 87591; 93976; 99284

== ENCOUNTER 2019-09-21 22:12 | Emergency (ER) | payer OTHER ==
--- NOTE | 2019-09-21 22:21 | ER Document Report ---
ED General - General Chief Complaint: High Blood Sugar Stated Complaint: BLOOD SUGAR PROBLEMS Primary Care Provider: KATERYNA GONSALEZ MD [Primary Care Provider] - Follow up as needed Notes: 59-year-old female with a history of right hemispheric stroke causing speech and left upper and lower extremity deficits back in July presents with worsening speech and walking symptoms as of today. She says that this happens intermittently when her blood sugar goes up since the stroke. The deficits are in keeping with what she had during the stroke. Her blood sugar was found to be in the 400s. She has no fever headache or other new or different weakness other than the stroke she had before. TRAVEL OUTSIDE OF THE [place] IN LAST 30 DAYS: No - Related Data Allergies/Adverse Reactions: Penicillins Allergy (Unknown, Verified 08/07/19 17:15) cephalexin monohydrate [From Keflex] Allergy (Verified 08/07/19 17:15) ciprofloxacin [From Cipro] Allergy (Verified 08/07/19 17:15) codeine Allergy (Verified 08/07/19 17:15) Iodinated Contrast Media [IV Dye, Iodine Containing] Allergy (Verified 08/07/19 17:15) latex [Latex] Allergy (Verified 08/07/19 17:15) metformin Allergy (Verified 08/07/19 17:15) nitrofurantoin macrocrystalline [From Macrodantin] Allergy (Verified 08/07/19 17:15) penicillin G Allergy (Verified 08/07/19 17:15) Sulfa (Sulfonamide Antibiotics) Allergy (Verified 08/07/19 17:15) tetracycline [Tetracycline] Allergy (Verified 08/07/19 17:15) nitroglycerin [From Nitrostat] Adverse Reaction (Verified 08/07/19 17:15) Past Medical History - Social History Smoking Status: Former Smoker Family History: Arthritis, CVA, DM, Hyperlipidemia, Hypertension, Malignancy, Thyroid Disfunction Patient has suicidal ideation: No Patient has homicidal ideation: No - Past Medical History Cardiac Medical History: Reports: Hx Hypercholesterolemia, Hx Hypertension Pulmonary Medical History: Reports: Hx Asthma Neurological Medical History: Reports: Hx Cerebrovascular Accident, Hx Migraine Endocrine Medical History: Reports: Hx Diabetes Mellitus Type 1, Hx Diabetes Mellitus Type 2. Denies: Hx Hyperthyroidism, Hx Hypothyroidism Renal/ Medical History: Denies: Hx Peritoneal Dialysis Malignancy Medical History: Reports: Hx Cervical Cancer GI Medical History: Reports: Hx Gastroesophageal Reflux Disease. Denies: Hx Cirrhosis, Hx Hepatitis Musculoskeletal Medical History: Reports Hx Arthritis, Reports Hx Fibromyalgia, Reports Hx Musculoskeletal Deformity, Reports Hx Musculoskeletal Trauma Psychiatric Medical History: Reports: Hx Anxiety, Hx Depression Traumatic Medical History: Reports: Hx Fractures - Facial fractures bilateral toes elbow and left knee Infectious Medical History: Denies: Hx Hepatitis Past Surgical History: Reports: Hx Abdominal Surgery - hernia, Hx Sect ion - 2, Hx Cholecystectomy, Hx Hysterectomy, Hx Orthopedic Surgery - bilateral toes and elbows left knee twice, Hx Tubal Ligation, Other - Ventral hernia and pseudocyst removal. Denies: Hx Appendectomy - Immunizations Immunizations up to date: Yes Hx Diphtheria, Pertussis, Tetanus Vaccination: Yes Review of Systems - Review of Systems Notes: REVIEW OF SYSTEMS GEN: Denies fever, chills, weight loss ENT: Denies sore throat, nasal discharge, ear pain EYES: Denies blurry vision, eye pain, discharge CV: Denies chest pain, palpitations, edema RESP: Denies cough, shortness of breath, wheezing GI: Denies abdominal pain, nausea, vomiting, diarrhea MSK: Denies joint pain/swelling, edema, SKIN: Denies rash, skin lesions LYMPH: Denies swollen glands/lymph nodes NEURO: Denies headache, focal weakness or numbness, dizziness PSYCH: Denies depression, suicidal or homicidal ideation PHYSICAL EXAMINATION General: No acute distress, well-nourished Head: Atraumatic, normocephalic ENT: Mouth normal, oropharynx moist, no exudates or tonsillar enlargement Eyes: Conjunctiva normal, pupils equal, lids normal Neck: No JVD, supple, no guarding CVS: Normal rate, regular rhythm, no murmurs Resp: No resp distress, equal and normal breath sounds bilaterally GI: Nondistended, soft, no tenderness to palpation, no rebound or guarding Ext: No deformities, no edema, normal range of motion in upper and lower ext Back: No CVA or midline TTP Skin: No rash, warm Lymphatic: No lymphadeopathy noted Neuro: Awake, alert. Face symmetric. GCS 15. Physical Exam - Vital signs Vitals: Pulse Resp BP Pulse Ox 83 19 102/69 97 09/21/19 22:17 09/21/19 22:17 09/21/19 22:17 09/21/19 22:17 Course - Re-evaluation Re-evalutation: 09/22/19 00:24 Elderly female with a history of diabetes and stroke presents with recrudescence of strokelike symptoms in the same distribution as prior which on exam are no worse than in previous documentation and high blood sugar. Labs were done: There is no DKA. She has a few whites in her urine but no symptoms so I think treating this would be overkill and unnecessary given lack of fever and white count. She was given fluids and insulin which dropped her sugar and hydrated her. She felt better on reassessment. She was able to ambulate at her baseline with a walker. I think it is safer for her to go home and manage her sugars there and to be admitted for this. She does not have admission criteria and has normal vital signs not consistent with sepsis. I have discussed with the patient there likely diagnosis, aftercare plan, follow-up plans and my usual and customary return precautions. They verbalized understanding of this. - Vital Signs Vital signs: Temp Pulse Resp BP Pulse Ox 98.3 F 83 19 102/69 97 09/21/19 22:26 09/21/19 22:17 09/21/19 22:17 09/21/19 22:17 09/21/19 22:17 - Laboratory Result Diagrams: 09/21/19 22:23 09/21/19 22:23 Laboratory results interpreted by me: 09/21/19 09/21/19 09/21/19 22:23 22:23 23:06 RDW 14.6 H Sodium 133.6 L Chloride 96 L Glucose 424 H* Urine Glucose (UA) >=500 H Urine Blood SMALL H - Diagnostic Test Radiology reviewed: Image reviewed, Reports reviewed Discharge - Discharge Clinical Impression: Hyperglycemia, Left-sided weakness Hyperglycemia due to type 2 diabetes mellitus Qualifiers: Diabetes mellitus senior living insulin use: with senior living use Qualified Code(s): E11.65 - Type 2 diabetes mellitus with hyperglycemia; Z79.4 - snf (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 of insulin Condition: Good Disposition: HOME, SELF-CARE Instructions: Hyperglycemia ([facility]) Additional Instructions: Your stroke symptoms have come back to some degree because of your high blood sugar. Please control your blood sugar with insulin and call your doctor tomorrow regarding adjustments to your diet and insulin regimen to prevent further spikes in blood sugar. Please hydrate well with low-carb diet and lots of fluids. Referrals: KATERYNA GONSALEZ MD [Primary Care Provider] - Follow up as needed
[2019-09-21] MEDS ORDERED: NORMAL SALINE 500 ML IV ONE (22:22)
[2019-09-21 22:33] LABS: ABSOLUTE BASOPHILS # (AUTO) 0.1 10^3/uL (0.0-0.2); ABSOLUTE EOSINOPHILS # (AUTO) 0.2 10^3/uL (0.0-0.6); ABSOLUTE LYMPHOCYTES (AUTO) 2.5 10^3/uL (0.5-4.7); ABSOLUTE MONOCYTES (AUTO) 0.7 10^3/uL (0.1-1.4); ABSOLUTE NEUT (AUTO) 3.7 10^3/uL (1.7-8.2); BASOPHILS % (AUTO) 0.9 % (0-2); EOSINOPHILS % (AUTO) 2.2 % (0-6); HEMATOCRIT 42.5 % (36.0-47.0); HEMOGLOBIN 14.6 g/dL (12.0-15.5); LYMPHOCYTES % (AUTO) 35.5 % (13-45); MEAN CORPUSCULAR HEMOGLOBIN 28.5 pg (27.0-33.4); MEAN CORPUSCULAR HGB CONC 34.3 g/dL (32.0-36.0); MEAN CORPUSCULAR VOLUME 83 fl (80-97); MONOCYTES % (AUTO) 9.3 % (3-13); PLATELET COUNT 224 10^3/uL (150-450); RED BLOOD COUNT 5.13 10^6/uL (3.72-5.28); RED CELL DISTRIBUTION WIDTH 14.6 % (11.5-14.0); SEGMENTED NEUTROPHILS % (AUTO) 52.1 % (42-78); TOTAL CELLS COUNTED % (AUTO) 100 %; WHITE BLOOD COUNT 7.1 10^3/uL (4.0-10.5)
[2019-09-21 22:53] LABS: ANION GAP 9 (5-19); BLOOD UREA NITROGEN 18 mg/dL (7-20); CALCIUM 9.6 mg/dL (8.4-10.2); CARBON DIOXIDE 29 mmol/L (22-30); CHLORIDE 96 mmol/L (98-107); POTASSIUM 4.1 mmol/L (3.6-5.0)
[2019-09-21 23:11] LABS: GLUCOSE 424 mg/dL (75-110)
[2019-09-21] MEDS ORDERED: INSULIN REG, HUMAN 100 UNIT/ML 3 ML VIAL (PYX) IV ONE (23:14)
--- NOTE | 2019-09-21 23:26 | RADIOLOGY REPORT (SQ) ---
CT HEAD WITHOUT IV CONTRAST EXAM DATE: 09/21/2019 10:22 PM CDT HISTORY: Left-sided weakness. COMPARISON: 07/02/2019 TECHNIQUE: CT scan of the brain without IV contrast. This exam was performed according to our departmental dose-optimization program, which includes automated exposure control, adjustment of the mA and/or kV according to patient size and/or use of iterative reconstruction technique. FINDINGS: There are scattered areas of hypoattenuation within the periventricular white matter, which likely represent chronic microvascular ischemia. No evidence of acute infarction, intracranial hemorrhage, extra-axial fluid collection, or midline shift. No air-fluid levels are seen in the paranasal sinuses to suggest acute sinusitis. No depressed skull fracture. IMPRESSION: No acute intracranial findings are seen. Please note that MRI is more sensitive for the evaluation of early infarction, and may be performed if there is high clinical concern.
[2019-09-21 23:28] LABS: APPEARANCE,URINE CLEAR; BILIRUBIN,URINE NEGATIVE (NEGATIVE); COLOR,URINE STRAW; GLUCOSE, URINE >=500 mg/dL (NEGATIVE); KETONES,URINE NEGATIVE (NEGATIVE); LEUKOCYTE ESTERASE,URINE NEGATIVE (NEGATIVE); NITRITE,URINE NEGATIVE (NEGATIVE); PROTEIN,URINE NEGATIVE (NEGATIVE); URINE SPECIFIC GRAVITY 1.027; UROBILINOGEN,URINE NEGATIVE mg/dL (<2.0)
[2019-09-22 03:24] VITALS: BP 111/65
--- NOTE | 2019-09-22 07:23 | EKG REPORT ---
SEVERITY:- ABNORMAL ECG - SINUS RHYTHM PROBABLE INFERIOR INFARCT, AGE INDETERMINATE : Confirmed by: Jennifer Burgess 22-Sep-2019 07:22:45
== END 2019-09-22 03:28 | disposition home or self-care (01) ==
LOC: ER 22:12
DX: E11.65 Type 2 diabetes mellitus with hyperglycemia (principal); Z79.4 Long term (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 of insulin; R53.1 Weakness; I10 Essential (primary) hypertension; J45.909 Unspecified asthma, uncomplicated; Z86.73 Personal history of transient ischemic attack (TIA), and cerebral infarction without residual deficits; Z87.891 Personal history of nicotine dependence; Z88.0 Allergy status to penicillin; Z88.1 Allergy status to other antibiotic agents; Z88.6 Allergy status to analgesic agent; Z88.5 Allergy status to narcotic agent; Z91.041 Radiographic dye allergy status; Z91.040 Latex allergy status; Z88.8 Allergy status to other drugs, medicaments and biological substances; Z88.2 Allergy status to sulfonamides
CPT/HCPCS: 93005; 99285; 96360; 36415; 82962; 85025; 80048; 81001; 70450; 93010; J1815; J7040

== ENCOUNTER 2019-09-22 12:21 | Emergency (ER) | payer OTHER ==
--- NOTE | 2019-09-22 12:50 | ER Document Report ---
ED General - General Stated Complaint: HEADACHE Time Seen by Provider: 09/22/19 12:32 Primary Care Provider: KATERYNA GONSALEZ MD [Primary Care Provider] - Follow up in 3-5 days Notes: Patient is a 59-year-old female who presents the emergency department with a chief complaint of dizziness and worsening weakness. Patient states that her symptoms started yesterday. She was actually seen here in the emergency department yesterday. Her blood sugar was high at that time. CT was normal. Blood sugars were brought down with insulin and fluids. Patient states that she continues to be dizzy. Called her primary care provider and was told to call EMS and was brought here to the emergency department. Patient has a history of CVA in November and has left-sided weakness already. Patient states that her left side feels weaker than normal. Reports having a hard time sitting up. TRAVEL OUTSIDE OF THE [place] IN LAST 30 DAYS: No - Related Data Allergies/Adverse Reactions: Penicillins Allergy (Unknown, Verified 09/22/19 12:45) cephalexin monohydrate [From Keflex] Allergy (Verified 09/22/19 12:45) ciprofloxacin [From Cipro] Allergy (Verified 09/22/19 12:45) codeine Allergy (Verified 09/22/19 12:45) Iodinated Contrast Media [IV Dye, Iodine Containing] Allergy (Verified 09/22/19 12:45) latex [Latex] Allergy (Verified 09/22/19 12:45) metformin Allergy (Verified 09/22/19 12:45) nitrofurantoin macrocrystalline [From Macrodantin] Allergy (Verified 09/22/19 12:45) penicillin G Allergy (Verified 09/22/19 12:45) Sulfa (Sulfonamide Antibiotics) Allergy (Verified 09/22/19 12:45) tetracycline [Tetracycline] Allergy (Verified 09/22/19 12:45) nitroglycerin [From Nitrostat] Adverse Reaction (Verified 09/22/19 12:45) Past Medical History - General Information source: Patient, Office - Social History Smoking Status: Former Smoker Family History: Arthritis, CVA, DM, Hyperlipidemia, Hypertension, Malignancy, Thyroid Disfunction - Past Medical History Cardiac Medical History: Reports: Hx Hypercholesterolemia, Hx Hypertension Pulmonary Medical History: Reports: Hx Asthma Neurological Medical History: Reports: Hx Cerebrovascular Accident, Hx Migraine Endocrine Medical History: Reports: Hx Diabetes Mellitus Type 1, Hx Diabetes Mellitus Type 2. Denies: Hx Hyperthyroidism, Hx Hypothyroidism Renal/ Medical History: Denies: Hx Peritoneal Dialysis Malignancy Medical History: Reports: Hx Cervical Cancer GI Medical History: Reports: Hx Gastroesophageal Reflux Disease. Denies: Hx Cirrhosis, Hx Hepatitis Musculoskeletal Medical History: Reports Hx Arthritis, Reports Hx Fibromyalgia, Reports Hx Musculoskeletal Deformity, Reports Hx Musculoskeletal Trauma Psychiatric Medical History: Reports: Hx Anxiety, Hx Depression Traumatic Medical History: Reports: Hx Fractures - Facial fractures bilateral toes elbow and left knee Infectious Medical History: Denies: Hx Hepatitis Past Surgical History: Reports: Hx Abdominal Surgery - hernia, Hx Section - 2, Hx Cholecystectomy, Hx Hysterectomy, Hx Orthopedic Surgery - bilateral toes and elbows left knee twice, Hx Tubal Ligation, Other - Ventral hernia and pseudocyst removal. Denies: Hx Appendectomy - Immunizations Immunizations up to date: Yes Hx Diphtheria, Pertussis, Tetanus Vaccination: Yes Review of Systems - Review of Systems Notes: REVIEW OF SYSTEMS: CONSTITUTIONAL : Denies recent illness. Denies recent unintentional weight loss. Denies fever, chills, or sweats. EENT: Denies eye, ear, throat, or mouth pain, discharge, or symptoms. Denies nasal or sinus congestion. CARDIOVASCULAR: Denies chest pain. RESPIRATORY: Denies shortness of breath, cough, congestion, difficulty breathing, or wheezing. GASTROINTESTINAL: Denies nausea, vomiting, and diarrhea. Denies abdominal pain. Denies constipation. GENITOURINARY: Denies difficulty urinating, burning, blood in urine, urgency or frequency. MUSCULOSKELETAL: Denies neck and back pain. Denies joint pain or swelling. SKIN: Denies rash, itchiness, or lesions HEMATOLOGIC : Denies easy bruising or bleeding. LYMPHATIC: Denies swollen, painful, enlarged glands. NEUROLOGICAL: See HPI. PSYCHIATRIC: Denies stress, anxiety, alteration in sleep patterns, or depression. All other systems reviewed and negative. Physical Exam - Vital signs Vitals: Resp Pulse Ox 20 99 09/22/19 12:31 09/22/19 12:31 - Notes Notes: PHYSICAL EXAMINATION: GENERAL: Appears well, healthy, well-nourished, no acute distress. HEAD: Normocephalic, atraumatic. EYES: PERRL, conjunctiva normal, all extraocular movements intact, sclera nonicteric ENT: Moist mucous membranes. NECK: Supple, no noticeable swelling, redness, rash. Normal range of motion. LUNGS: Equal breath sounds bilaterally and clear to auscultation. No wheezes rales or rhonchi. CARDIOVASCULAR: S1-S2, regular rate, regular rhythm. Radial pulses 2+, normal. ABDOMEN: Normoactive bowel sounds. Soft, nontender, no guarding, no rebound tenderness, and no masses palpated. EXTREMITIES: Normal strength and range of motion, no pitting or edema. No cyanosis. NEUROLOGICAL: Moves all extremities upon command. Strength 5/5 in right extremities; 3/5 in left lower extremities. PSYCH: Normal mood, normal affect. SKIN: Warm, dry. No rash, lesions, ulcerations noted. Normal skin turgor. Course - Re-evaluation Re-evalutation: 09/22/19 13:[address] Gonsalez, the patient's primary care provider. According to the note that was written the patient stated, "[facility] turned me away and did not want to admit me even though I am having a stroke." We discussed the patient's physical exam, labs from yesterday, and CT from yesterday. Labs will be redrawn here in the emergency department. If everything looks normal, the patient will be discharged home. Dr. Gonsalez is in agreement with this plan. Discussed this plan with the patient. She will receive a liter of fluids and meclizine to see if it helps her with her symptoms. 09/22/19 15:00 Patient has finished her liter of fluids and received meclizine. I reevaluated her medications and I suggest that she check her blood pressure every day and not take her hydrochlorothiazide if her blood pressure is less than 130. This can be a possible reason why she is feeling lightheaded and dizzy. The patient also had lower blood pressure reading yesterday when she was here in the emergency department. Discussed this change in medication with the patient. She is in agreement in understands this plan. I asked her questions of what she needs to do as far as her blood pressure goes and she answered the questions appropriately. Patient agrees to follow-up with her primary care provider. I have very low suspicion for an acute stroke at this time. Patient expressed gratitude towards her care. Follow-up precautions were given. Verbal discharge instructions were given to the patient. They verbalized understanding. They are stable for discharge. - Vital Signs Vital signs: Temp Pulse Resp BP Pulse Ox 98.2 F 66 17 100/68 96 09/22/19 17:00 09/22/19 12:45 09/22/19 17:01 09/22/19 17:00 09/22/19 17:01 - Laboratory Result Diagrams: 09/22/19 13:20 09/22/19 13:20 Laboratory results interpreted by me: 09/22/19 09/22/19 09/22/19 13:20 13:20 16:32 RBC 5.64 H Hgb 16.0 H RDW 14.4 H Carbon Dioxide 31 H Creatinine 0.50 L Glucose 170 H POC Glucose 158 H - EKG Interpretation by Me Additional EKG results interpreted by me: 09/22/19 Bradycardia. Rate 59. W[place] 186; QRS 86; QT 428; QTc 424. Acute change from previous EKG done yesterday. Discharge - Discharge Clinical Impression: Lightheadedness, Dizziness Condition: Stable Disposition: HOME, SELF-CARE Additional Instructions: You were seen today in the emergency department for dizziness and lightheadedness. Your blood pressure was a little low here in the emergency department. Check your blood pressure tomorrow morning. If the top number of your blood pressure is higher than 130, take your hydrochlorothiazide. If it is less than 130, do not take your hydrochlorothiazide. Please follow-up with your primary care provider and let them know that this change was made. Referrals: KATERYNA GONSALEZ MD [Primary Care Provider] - Follow up in 3-5 days
[2019-09-22 13:32] LABS: ABSOLUTE BASOPHILS # (AUTO) 0.1 10^3/uL (0.0-0.2); ABSOLUTE EOSINOPHILS # (AUTO) 0.2 10^3/uL (0.0-0.6); ABSOLUTE MONOCYTES (AUTO) 0.6 10^3/uL (0.1-1.4); ABSOLUTE NEUT (AUTO) 3.8 10^3/uL (1.7-8.2); BASOPHILS % (AUTO) 0.9 % (0-2); EOSINOPHILS % (AUTO) 2.8 % (0-6); HEMATOCRIT 46.8 % (36.0-47.0); LYMPHOCYTES % (AUTO) 30.3 % (13-45); MEAN CORPUSCULAR HEMOGLOBIN 28.4 pg (27.0-33.4); MEAN CORPUSCULAR HGB CONC 34.2 g/dL (32.0-36.0); MEAN CORPUSCULAR VOLUME 83 fl (80-97); MONOCYTES % (AUTO) 8.9 % (3-13); PLATELET COUNT 238 10^3/uL (150-450); RED BLOOD COUNT 5.64 10^6/uL (3.72-5.28); RED CELL DISTRIBUTION WIDTH 14.4 % (11.5-14.0); SEGMENTED NEUTROPHILS % (AUTO) 57.1 % (42-78); TOTAL CELLS COUNTED % (AUTO) 100 %; WHITE BLOOD COUNT 6.7 10^3/uL (4.0-10.5)
[2019-09-22] MEDS ORDERED: NORMAL SALINE 1000 ML 1,000 ML IV ONE (13:37)
[2019-09-22] MEDS ORDERED: MECLIZINE HCL 25 MG TABLET PO ONE (13:37)
[2019-09-22] MEDS ORDERED: ACETAMINOPHEN 325 MG TABLET PO ONE (13:40)
[2019-09-22 13:50] LABS: ANION GAP 11 (5-19); BLOOD UREA NITROGEN 12 mg/dL (7-20); CALCIUM 9.8 mg/dL (8.4-10.2); CARBON DIOXIDE 31 mmol/L (22-30); CHLORIDE 98 mmol/L (98-107); GLUCOSE 170 mg/dL (75-110); POTASSIUM 3.9 mmol/L (3.6-5.0)
[2019-09-22 17:40] VITALS: BP 100/68
--- NOTE | 2019-09-22 18:44 | EKG REPORT ---
SEVERITY:- ABNORMAL ECG - SINUS RHYTHM PROBABLE INFERIOR INFARCT, AGE INDETERMINATE : Confirmed by: Jennifer Burgess 22-Sep-2019 18:43:29
== END 2019-09-22 17:40 | disposition home or self-care (01) ==
LOC: ER 12:21
DX: R42 Dizziness and giddiness (principal); R51 Headache; R53.1 Weakness; Z79.4 Long term (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 of insulin; Z88.0 Allergy status to penicillin; Z88.1 Allergy status to other antibiotic agents; Z88.8 Allergy status to other drugs, medicaments and biological substances; Z88.2 Allergy status to sulfonamides; Z87.891 Personal history of nicotine dependence; I10 Essential (primary) hypertension; J45.909 Unspecified asthma, uncomplicated; E11.9 Type 2 diabetes mellitus without complications
CPT/HCPCS: 93005; 99284; 96360; 36415; 82962; 85025; 80048; 93010; J7030

== ENCOUNTER 2019-10-12 17:21 | Emergency (ER) | payer OTHER ==
--- NOTE | 2019-10-12 17:57 | ER Document Report ---
ED Medical Screen (RME) - General Chief Complaint: Abdominal Pain Stated Complaint: ABDOMINAL/HIP PAIN Time Seen by Provider: 10/12/19 17:51 Primary Care Provider: KATERYNA GONSALEZ MD [Primary Care Provider] - Follow up as needed Mode of Arrival: Ambulatory Information source: Patient Notes: 59-year-old female with history of stroke, diabetes, ovarian cyst presents to the emergency department with right pelvic pain that started approximately 10:00 this morning. She took Tylenol without relief of symptoms. She reports the pain is now radiating down her right leg. Complains hurts more when she walks. Denies fever vomiting diarrhea. Denies vaginal discharge. Denies pain with void. Reports she has had a partial hysterectomy. Patient reports she has a history of a left ovarian cyst and it feels the same way except on the right side now. I have greeted and performed a rapid initial assessment of this patient. A comprehensive ED assessment and evaluation of the patient, analysis of test results and completion of the medical decision making process will be conducted by additional ED providers. TRAVEL OUTSIDE OF THE [place] IN LAST 30 DAYS: No - Related Data Allergies/Adverse Reactions: Penicillins Allergy (Unknown, Verified 09/22/19 12:45) cephalexin monohydrate [From Keflex] Allergy (Verified 09/22/19 12:45) ciprofloxacin [From Cipro] Allergy (Verified 09/22/19 12:45) codeine Allergy (Verified 09/22/19 12:45) Iodinated Contrast Media [IV Dye, Iodine Containing] Allergy (Verified 09/22/19 12:45) latex [Latex] Allergy (Verified 09/22/19 12:45) metformin Allergy (Verified 09/22/19 12:45) nitrofurantoin macrocrystalline [From Macrodantin] Allergy (Verified 09/22/19 12:45) penicillin G Allergy (Verified 09/22/19 12:45) Sulfa (Sulfonamide Antibiotics) Allergy (Verified 09/22/19 12:45) tetracycline [Tetracycline] Allergy (Verified 09/22/19 12:45) nitroglycerin [From Nitrostat] Adverse Reaction (Verified 09/22/19 12:45) Past Medical History - Social History Family history: Reviewed & Not Pertinent - Past Medical History Cardiac Medical History: Reports: Hx Hypercholesterolemia, Hx Hypertension Pulmonary Medical History: Reports: Hx Asthma Neurological Medical History: Reports: Hx Cerebrovascular Accident, Hx Migraine Endocrine Medical History: Reports: Hx Diabetes Mellitus Type 1, Hx Diabetes Mellitus Type 2. Denies: Hx Hyperthyroidism, Hx Hypothyroidism Renal/ Medical History: Denies: Hx Peritoneal Dialysis Malignancy Medical History: Reports: Hx Cervical Cancer GI Medical History: Reports: Hx Gastroesophageal Reflux Disease. Denies: Hx Cirrhosis, Hx Hepatitis Musculoskeltal Medical History: Reports Hx Arthritis, Reports Hx Fibromyalgia, Reports Hx Musculoskeletal Deformity, Reports Hx Musculoskeletal Trauma Psychiatric Medical History: Reports: Hx Anxiety, Hx Depression Traumatic Medical History: Reports: Hx Fractures - Facial fractures bilateral toes elbow and left knee Infectious Medical History: Denies: Hx Hepatitis Past Surgical History: Reports: Hx Abdominal Surgery - hernia, Hx Section - 2, Hx Cholecystectomy, Hx Hysterectomy, Hx Orthopedic Surgery - bilateral toes and elbows left knee twice, Hx Tubal Ligation, Other - Ventral hernia and pseudocyst removal. Denies: Hx Appendectomy - Immunizations Immunizations up to date: Yes Hx Diphtheria, Pertussis, Tetanus Vaccination: Yes Doctor's Discharge - Discharge Referrals: KATERYNA GONSALEZ MD [Primary Care Provider] - Follow up as needed
[2019-10-12] MEDS ORDERED: NORMAL SALINE 1000 ML 1,000 ML IV ONE (19:05)
[2019-10-12] MEDS ORDERED: FENTANYL CITRATE INJ/PF 100 MCG/2 ML AMPUL IV PRN (19:06)
[2019-10-12] MEDS ORDERED: ONDANSETRON HCL INJ/PF 4 MG/2 ML SDV IV ONE (19:06)
[2019-10-12 19:08] LABS: ABSOLUTE EOSINOPHILS # (AUTO) 0.2 10^3/uL (0.0-0.6); ABSOLUTE LYMPHOCYTES (AUTO) 2.3 10^3/uL (0.5-4.7); ABSOLUTE MONOCYTES (AUTO) 0.6 10^3/uL (0.1-1.4); ABSOLUTE NEUT (AUTO) 5.1 10^3/uL (1.7-8.2); BASOPHILS % (AUTO) 0.6 % (0-2); EOSINOPHILS % (AUTO) 1.9 % (0-6); HEMATOCRIT 40.1 % (36.0-47.0); HEMOGLOBIN 14.2 g/dL (12.0-15.5); LYMPHOCYTES % (AUTO) 28.2 % (13-45); MEAN CORPUSCULAR HEMOGLOBIN 28.9 pg (27.0-33.4); MEAN CORPUSCULAR HGB CONC 35.4 g/dL (32.0-36.0); MEAN CORPUSCULAR VOLUME 82 fl (80-97); PLATELET COUNT 217 10^3/uL (150-450); RED BLOOD COUNT 4.91 10^6/uL (3.72-5.28); RED CELL DISTRIBUTION WIDTH 14.3 % (11.5-14.0); SEGMENTED NEUTROPHILS % (AUTO) 62.3 % (42-78); TOTAL CELLS COUNTED % (AUTO) 100 %; WHITE BLOOD COUNT 8.2 10^3/uL (4.0-10.5)
--- NOTE | 2019-10-12 19:13 | RADIOLOGY REPORT (SQ) ---
EXAM DESCRIPTION: U/S NON-OB PELVIS TV W/O DOP IMAGES COMPLETED DATE/TIME: 10/12/2019 6:56 pm REASON FOR STUDY: pelvic pain, hx cyst COMPARISON: 08/07/2019 TECHNIQUE: Dynamic and static grayscale images acquired of the pelvis via transvaginal approach and recorded on PACS. Additional selected color Doppler and spectral images recorded. LIMITATIONS: None. FINDINGS: Limited study. Ovaries are not seen. The uterus is apparently absent. No adnexal mass o r fluid collection is appreciated. IMPRESSION: Limited study. No abnormality is appreciated as described. TECHNICAL DOCUMENTATION: JOB ID: [id number] 2010 [employer]- All Rights Reserved Rev-10/17 Reading location - IP/workstation name: [email or web address]
[2019-10-12 19:17] LABS: ALBUMIN 4.6 g/dL (3.5-5.0); ALKALINE PHOSPHATASE 63 U/L (38-126); ANION GAP 8 (5-19); ASPARTATE AMINO TRANSFERASE 25 U/L (14-36); BILIRUBIN,TOTAL 0.6 mg/dL (0.2-1.3); BLOOD UREA NITROGEN 20 mg/dL (7-20); CALCIUM 9.5 mg/dL (8.4-10.2); CARBON DIOXIDE 29 mmol/L (22-30); CHLORIDE 101 mmol/L (98-107); GLUCOSE 179 mg/dL (75-110); POTASSIUM 3.9 mmol/L (3.6-5.0); TOTAL PROTEIN 7.5 g/dL (6.3-8.2)
--- NOTE | 2019-10-12 19:18 | ER Document Report ---
ED General - General Chief Complaint: Abdominal Pain Stated Complaint: ABDOMINAL/HIP PAIN Time Seen by Provider: 10/12/19 17:51 Primary Care Provider: KATERYNA GONSALEZ MD [Primary Care Provider] - Follow up as needed Mode of Arrival: Ambulatory TRAVEL OUTSIDE OF THE [place] IN LAST 30 DAYS: No - HPI Notes: Chief complaint: Right lower quadrant abdominal pain History of present illness: 59-year-old female with 12-hour history of progressively worsening right lower quadrant pain with associated nausea without vomiting. She has been eating and drinking normally. She denies dysuria. She denies fever chills. Patient is concerned this might be appendix. She also notes that she has had problems with ovarian cysts in the past. Previous cholecystectomy. Previous hysterectomy. No dysuria. No vaginal discharge. - Related Data Allergies/Adverse Reactions: Penicillins Allergy (Unknown, Verified 09/22/19 12:45) cephalexin monohydrate [From Keflex] Allergy (Verified 09/22/19 12:45) ciprofloxacin [From Cipro] Allergy (Verified 09/22/19 12:45) codeine Allergy (Verified 09/22/19 12:45) latex [Latex] Allergy (Verified 09/22/19 12:45) metformin Allergy (Verified 09/22/19 12:45) nitrofurantoin macrocrystalline [From Macrodantin] Allergy (Verified 09/22/19 12:45) penicillin G Allergy (Verified 09/22/19 12:45) Sulfa (Sulfonamide Antibiotics) Allergy (Verified 09/22/19 12:45) tetracycline [Tetracycline] Allergy (Verified 09/22/19 12:45) nitroglycerin [From Nitrostat] Adverse Reaction (Verified 09/22/19 12:45) Home Medications: clopidogrel. atrovastatin. quetiapine. farxia. pantopraxole. allodipine. meclizine. losartan. metoprolol Past Medical History - General Information source: Patient, [facility] Records - Social History Smoking Status: Former Smoker Family History: Arthritis, CVA, DM, Hyperlipidemia, Hypertension, Malignancy, Thyroid Disfunction Patient has homicidal ideation: No - Past Medical History Cardiac Medical History: Reports: Hx Hypercholesterolemia, Hx Hypertension Pulmonary Medical History: Reports: Hx Asthma Neurological Medical History: Reports: Hx Cerebrovascular Accident, Hx Migraine Endocrine Medical History: Reports: Hx Diabetes Mellitus Type 1, Hx Diabetes Mellitus Type 2. Denies: Hx Hyperthyroidism, Hx Hypothyroidism Renal/ Medical History: Denies: Hx Peritoneal Dialysis Malignancy Medical History: Reports: Hx Cervical Cancer GI Medical History: Reports: Hx Gastroesophageal Reflux Disease. Denies: Hx Cirrhosis, Hx Hepatitis Musculoskeletal Medical History: Reports Hx Arthritis, Reports Hx Fibromyalgia, Reports Hx Musculoskeletal Deformity, Reports Hx Musculoskeletal Trauma Psychiatric Medical History: Reports: Hx Anxiety, Hx Depression Traumatic Medical History: Reports: Hx Fractures - Facial fractures bilateral toes elbow and left knee Infectious Medical History: Denies: Hx Hepatitis Past Surgical History: Reports: Hx Abdominal Surgery - hernia, Hx Section - 2, Hx Cholecystectomy, Hx Hysterectomy, Hx Orthopedic Surgery - bilateral toes and elbows left knee twice, Hx Tubal Ligation, Other - Ventral hernia and pseudocyst removal. Denies: Hx Appendectomy - Immunizations Immunizations up to date: Yes Hx Diphtheria, Pertussis, Tetanus Vaccination: Yes Review of Systems - Review of Systems Notes: Constitutional: Negative for fever. HENT: Negative for sore throat. Eyes: Negative for visual changes. Cardiovascular: Negative for chest pain. Respiratory: Negative for shortness of breath. Gastrointestinal: As per HPI. Genitourinary: As per HPI. Musculoskeletal: Negative for back pain. Skin: Negative for rash. Neurological: Negative for headaches, weakness or numbness. 10 point ROS negative except as marked above and in HPI. Physical Exam - Vital signs Vitals: Temp 98.2 F 10/12/19 17:21 - Notes Notes: GENERAL: Well-developed well-nourished appearing in no acute distress. SKIN: Good turgor no rashes. HEAD: Normocephalic atraumatic. EYES: PERRLA. EOMI. Conjunctivae and sclerae clear. EARS: CANALS AND TMS CLEAR. NOSE: CLEAR. MOUTH: Moist mucosa. Good dentition. No stridor or edema. No drooling. NECK: Supple. No masses or thyromegaly. No adenopathy. Carotids 2+ without bruits. No JVD. BACK: Symmetrical without tenderness. CHEST: Respirations unlabored. Breath sounds clear and symmetrical. HEART: Regular rhythm. No murmur gallop or rub. ABDOMEN: Moderately tender right lower quadrant. Mild rebound. Soft without masses, organomegaly. Bowel sounds normally active. No bruits. GENITALIA: Deferred. EXTREMITIES: No edema. No calf tenderness. Cap refill less than 1.5 seconds. Dorsalis pedis and posterior tibial pulses 3+ and symmetrical. NEUROLOGICAL: GCS 15. Alert and oriented x3. Normal gait. Fluent speech. Cranial nerves II through XII intact. Sensorimotor and cerebellar normal. Normal tone. PSYCHIATRIC: Appropriate affect. Course - Re-evaluation Re-evalutation: Patient was moderately tender in right lower quadrant on initial evaluation. Her labs were unremarkable. She initially thought this might be an ovarian cyst which would be in my opinion a little unusual in a lady this age. The pelvic ultrasound did not show any obvious abnormality per radiologist. I subsequently got a CT abdomen/pelvis with oral and IV contrast and this showed a normal appendix but was remarkable for a large amount of retained stool in the colon probably responsible for the patient's symptoms. I offered the patient an enema here which she declined. She will take a fleets enema at home be started on MiraLAX and follow-up with her primary care doctor. 10/12/19 23:00 - Vital Signs Vital signs: Temp Pulse Resp BP Pulse Ox 98.1 F 65 15 122/71 96 10/12/19 21:46 10/12/19 21:46 10/12/19 21:46 10/12/19 21:46 10/12/19 21:46 - Laboratory Result Diagrams: 10/12/19 18:58 10/12/19 18:58 Laboratory results interpreted by me: 10/12/19 10/12/19 10/12/19 17:40 18:58 18:58 RDW 14.3 H Glucose 179 H Urine Glucose (UA) 1000 H Urine Ketones 100 H Ur Leukocyte Esterase TRACE H - Diagnostic Test Radiology reviewed: Reports reviewed - Pelvic ultrasound was unremarkable per radiologist. CT abdomen pelvis per radiologist was remarkable only for retained stool and showed a normal appendix. Discharge - Discharge Clinical Impression: Lower abdominal pain Constipation Qualifiers: Constipation type: unspecified constipation type Qualified Code(s): K59.00 - Constipation, unspecified Condition: Stable Disposition: HOME, SELF-CARE Prescriptions: Na Phos,M-B/Na Phos,Di-Ba [Fleet Enema (Adult) 133 ml] 1 applic IN DAILYP PRN #1 enema PRN Reason: Polyethylene Glycol 3350 [Miralax] 1 cap PO DAILY #527 powder Referrals: KATERYNA GONSALEZ MD [Primary Care Provider] - Follow up as needed
[2019-10-12 19:21] LABS: ADD MANUAL MICROSCOPIC YES; APPEARANCE,URINE CLEAR; BILIRUBIN,URINE NEGATIVE (NEGATIVE); COLOR,URINE YELLOW; GLUCOSE, URINE 1000 mg/dL (NEGATIVE); KETONES,URINE 100 mg/dL (NEGATIVE); LEUKOCYTE ESTERASE,URINE TRACE (NEGATIVE); NITRITE,URINE NEGATIVE (NEGATIVE); PROTEIN,URINE NEGATIVE (NEGATIVE); URINE SPECIFIC GRAVITY 1.037; UROBILINOGEN,URINE NEGATIVE mg/dL (<2.0)
--- NOTE | 2019-10-12 22:43 | RADIOLOGY REPORT (SQ) ---
EXAM DESCRIPTION: CT ABDOMEN PELVIS WITH IV CONTRAST COMPLETED DATE/TME: 10/12/2019 00:00 CLINICAL HISTORY: 59 years, Female, Right lower quadrant pain COMPARISON: 08/07/2019 CT TECHNIQUE: 798 Images stored on PACS. All CT scanners at this facility use dose modulation, iterative reconstruction, and/or weight based dosing when appropriate to reduce radiation dose to as low as reasonably achievable (ALARA). [facility]: Dose Right [facility]: CareDose [facility]: Dose Right [facility]: Teradose 4D [facility]: [employer] LIMITATIONS: None. FINDINGS: Limited evaluation of the lung bases is unremarkable. Osseous structures are grossly intact. Fatty infiltrative change to the liver. The spleen, adrenal glands, pancreas, kidneys are unremarkable. Gallbladder is nonvisualized, presumably surgically absent. No evidence for bowel obstruction. Large amount stool in the colon. Normal appendix. No free air or free fluid. Moderate atheromatous change. Occasional colonic diverticuli without CT evidence for acute diverticulitis. IMPRESSION: No acute intra-abdominal/pelvic process. Normal appendix. Abundant stool in the colon. Fatty infiltrative change to the liver TECHNICAL DOCUMENTATION: Quality ID # [id number]: Final reports with documentation of one or more dose reduction techniques (e.g., Automated exposure control, adjustment of the mA and/or kV according to patient size, use of iterative reconstruction technique) copyright 2011 [employer]- All Rights Reserved
[2019-10-12 23:23] VITALS: BP 120/63
== END 2019-10-12 23:22 | disposition home or self-care (01) ==
LOC: ER 17:21
DX: K59.00 Constipation, unspecified (principal); R10.30 Lower abdominal pain, unspecified; R10.31 Right lower quadrant pain; R11.0 Nausea; Z90.49 Acquired absence of other specified parts of digestive tract; Z90.710 Acquired absence of both cervix and uterus; Z88.0 Allergy status to penicillin; Z88.8 Allergy status to other drugs, medicaments and biological substances; Z88.1 Allergy status to other antibiotic agents; Z88.2 Allergy status to sulfonamides; Z87.891 Personal history of nicotine dependence; I10 Essential (primary) hypertension; J45.909 Unspecified asthma, uncomplicated; E11.9 Type 2 diabetes mellitus without complications
CPT/HCPCS: 99284; 96361; 96374; 96375; 36415; 85025; 80053; 81001; 76830; 74177; J3010; J2405; J7030

== ENCOUNTER 2019-11-05 18:43 | Emergency (ER) | payer OTHER ==
[2019-11-05 19:17] VITALS: BP 122/64
--- NOTE | 2019-11-05 19:36 | ER Document Report ---
HPI - HPI Patient complains to provider of: foot pain Onset: This morning Onset/Duration: Sudden Quality of pain: Achy Severity: Moderate Pain Level: 5 Context: This 59-year-old female presents to the emergency room today after stepping on her right foot in an inverted twisting motion. She has pain to the site. Associated Symptoms: None - REPRODUCTIVE Reproductive: DENIES: : Past Medical History - Social History Smoking Status: Never Smoker Frequency of alcohol use: None Drug Abuse: None Family History: Arthritis, CVA, DM, Hyperlipidemia, Hypertension, Malignancy, Thyroid Disfunction Patient has homicidal ideation: No - Past Medical History Cardiac Medical History: Reports: Hx Hypercholesterolemia, Hx Hypertension Pulmonary Medical History: Reports: Hx Asthma Neurological Medical History: Reports: Hx Cerebrovascular Accident, Hx Migraine Endocrine Medical History: Reports: Hx Diabetes Mellitus Type 1, Hx Diabetes Mellitus Type 2. Denies: Hx Hyperthyroidism, Hx Hypothyroidism Renal/ Medical History: Denies: Hx Peritoneal Dialysis Malignancy Medical History: Reports: Hx Cervical Cancer GI Medical History: Reports: Hx Gastroesophageal Reflux Disease. Denies: Hx Cirrhosis, Hx Hepatitis Musculoskeletal Medical History: Reports Hx Arthritis, Reports Hx Fibromyalgia, Reports Hx Musculoskeletal Deformity, Reports Hx Musculoskeletal Trauma Psychiatric Medical History: Reports: Hx Anxiety, Hx Depression Traumatic Medical History: Reports: Hx Fractures - Facial fractures bilateral toes elbow and left knee Infectious Medical History: Denies: Hx Hepatitis Past Surgical History: Reports: Hx Abdominal Surgery - hernia, Hx Section - 2, Hx Cholecystectomy, Hx Hysterectomy, Hx Orthopedic Surgery - bilateral toes and elbows left knee twice, Hx Tubal Ligation, Other - Ventral hernia and pseudocyst removal. Denies: Hx Appendectomy - Immunizations Immunizations up to date: Yes Hx Diphtheria, Pertussis, Tetanus Vaccination: Yes Vertical Provider Document - CONSTITUTIONAL Agree With Documented VS: Yes - INFECTION CONTROL TRAVEL OUTSIDE OF THE [place] IN LAST 30 DAYS: No - HEENT HEENT: Atraumatic, Conjuctival Injection, Normocephalic, PERRLA - NECK Neck: Normal Inspection - RESPIRATORY Respiratory: Breath Sounds Normal - CARDIOVASCULAR Cardiovascular: Regular Rate, Regular Rhythm - GI/ABDOMEN Gastrointestinal: Abdomen Soft, Abdomen Non-Tender - BACK Back: Normal Inspection - MUSCULOSKELETAL/EXTREMETIES Musculoskeletal/Extremeties: MAEW, Eccymosis - Superior aspect of her right foot over the fourth and fifth digits. Course - Vital Signs Vital signs: Temp Pulse Resp BP Pulse Ox 98.2 F 78 16 122/64 97 11/05/19 19:31 11/05/19 19:13 11/05/19 19:13 11/05/19 19:13 11/05/19 19:13 - Diagnostic Test Radiology results interpreted by me: 11/05/19 20:37 Foot X-Ray 11/05/19 19:35 IMPRESSION: NEGATIVE STUDY OF THE RIGHT FOOT. NO RADIOGRAPHIC EVIDENCE OF ACUTE INJURY. Discharge - Discharge Clinical Impression: Right foot strain Qualifiers: Encounter type: initial encounter Qualified Code(s): S96.911A - Strain of unspecified muscle and tendon at ankle and foot level, right foot, initial encounter Condition: Good Disposition: HOME, SELF-CARE Instructions: Tendon Strain ([facility]) Additional Instructions: Right foot strain. Rest. Ice. Elevate. Compress. Victor Manuel wrap applied here in the department. Prescriptions: Ibuprofen [Motrin 600 Mg Tablet] 600 mg PO TID #15 tablet Referrals: KATERYNA GONSALEZ MD [Primary Care Provider] - Follow up as needed
--- NOTE | 2019-11-05 19:55 | RADIOLOGY REPORT (SQ) ---
EXAM DESCRIPTION: FOOT RIGHT COMPLETE IMAGES COMPLETED DATE/TIME: 11/05/2019 7:47 pm REASON FOR STUDY: pain COMPARISON: None. NUMBER OF VIEWS: Three views. TECHNIQUE: AP, lateral and oblique radiographic images acquired of the right foot. LIMITATIONS: None. FINDINGS: MINERALIZATION: Normal. BONES: No acute fracture or dislocation. No worrisome bone lesions. JOINTS: No effusions. SOFT TISSUES: No soft tissue swelling. No foreign body. OTHER: No other significant finding. IMPRESSION: NEGATIVE STUDY OF THE RIGHT FOOT. NO RADIOGRAPHIC EVIDENCE OF ACUTE INJURY. TECHNICAL DOCUMENTATION: JOB ID: [id number] [employer]- All Rights Reserved Reading location - IP/workstation name: [email or web address]
[2019-11-05] MEDS ORDERED: IBUPROFEN 600 MG TABLET PO ONE (20:52)
== END 2019-11-05 21:00 | disposition home or self-care (01) ==
LOC: ER 18:43
DX: S96.911A Strain of unspecified muscle and tendon at ankle and foot level, right foot, initial encounter (principal); S90.121A Contusion of right lesser toe(s) without damage to nail, initial encounter; M79.671 Pain in right foot; X50.0XXA Overexertion from strenuous movement or load, initial encounter; I10 Essential (primary) hypertension; J45.909 Unspecified asthma, uncomplicated; E11.9 Type 2 diabetes mellitus without complications; Z85.41 Personal history of malignant neoplasm of cervix uteri
CPT/HCPCS: 99283

== ENCOUNTER 2019-11-13 22:06 | Observation (INO) | payer OTHER ==
[2019-11-13] MEDS ORDERED: NORMAL SALINE 500 ML IV ONE (22:16)
--- NOTE | 2019-11-13 22:31 | ER Document Report ---
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 EMS reports that the patient complained of generalized weakness for the past x2 days. Patient reportedly ran out of her Plavix x3 days ago. Per EMS, patient took 20 mg Melatonin as well as her other PM medications about x1 hour prior to arrival. TRAVEL OUTSIDE OF THE [place] IN LAST 30 DAYS: No - Related Data Allergies/Adverse Reactions: Penicillins Allergy (Unknown, Verified 09/22/19 12:45) cephalexin monohydrate [From Keflex] Allergy (Verified 09/22/19 12:45) ciprofloxacin [From Cipro] Allergy (Verified 09/22/19 12:45) codeine Allergy (Verified 09/22/19 12:45) latex [Latex] Allergy (Verified 09/22/19 12:45) metformin Allergy (Verified 09/22/19 12:45) nitrofurantoin macrocrystalline [From Macrodantin] Allergy (Verified 09/22/19 12:45) penicillin G Allergy (Verified 09/22/19 12:45) Sulfa (Sulfonamide Antibiotics) Allergy (Verified 09/22/19 12:45) tetracycline [Tetracycline] Allergy (Verified 09/22/19 12:45) nitroglycerin [From Nitrostat] Adverse Reaction (Verified 09/22/19 12:45) Past Medical History - General Information source: Patient, Emergency Med Personnel, [facility] Records - Social History Smoking Status: Unknown if Ever Smoked Family History: Reviewed & Not Pertinent, Arthritis, CVA, DM, Hyperlipidemia, Hypertension, Malignancy, Thyroid Disfunction Patient has suicidal ideation: No Patient has homicidal ideation: No - Past Medical History Cardiac Medical History: Reports: Hx Hypercholesterolemia, Hx Hypertension Pulmonary Medical History: Reports: Hx Asthma Neurological Medical History: Reports: Hx Cerebrovascular Accident, Hx Migraine Endocrine Medical History: Reports: Hx Diabetes Mellitus Type 1, Hx Diabetes Mellitus Type 2 Malignancy Medical History: Reports: Hx Cervical Cancer GI Medical History: Reports: Hx Gastroesophageal Reflux Disease Musculoskeletal Medical History: Reports Hx Arthritis, Reports Hx Fibromyalgia, Reports Hx Musculoskeletal Deformity, Reports Hx Musculoskeletal Trauma Psychiatric Medical History: Reports: Hx Anxiety, Hx Depression Traumatic Medical History: Reports: Hx Fractures - Facial fractures bilateral toes elbow and left knee Past Surgical History: Reports: Hx Abdominal Surgery - hernia, Hx Section - 2, Hx Cholecystectomy, Hx Herniorrhaphy, Hx Hysterectomy, Hx Orthopedic Surgery - bilateral toes and elbows left knee twice, Hx Tubal Ligation, Other - Ventral hernia and pseudocyst removal - Immunizations Immunizations up to date: Yes Hx Diphtheria, Pertussis, Tetanus Vaccination: Yes Review of Systems - Review of Systems Constitutional: See HPI, Weakness EENT: No symptoms reported Cardiovascular: No symptoms reported Respiratory: No symptoms reported Gastrointestinal: No symptoms reported Genitourinary: No symptoms reported Female Genitourinary: No symptoms reported Musculoskeletal: No symptoms reported Skin: No symptoms reported Hematologic/Lymphatic: No symptoms reported Neurological/Psychological: See HPI, Speech impairment -: Yes All other systems reviewed and negative Physical Exam - General General appearance: Alert In distress: None - HEENT Head: Normocephalic, Atraumatic Eyes: Normal Pupils: PERRL - Respiratory Respiratory status: No respiratory distress Chest status: Nontender Breath sounds: Normal Chest palpation: Normal - Cardiovascular Rhythm: Regular Heart sounds: Normal auscultation Murmur: No Friction rub: No Gallop: None auscultated - Abdominal Inspection: Normal Distension: No distension Bowel sounds: Normal Tenderness: Nontender - Abdomen soft Organomegaly: No organomegaly - Back Back: Normal, Nontender - Extremities General upper extremity: Normal inspection General lower extremity: Normal inspection - Neurological Neuro grossly intact: Yes Speech: Other - Slurred Additional motor exam normals: Weakness - Significant weakness to LLE - Psychological Associated symptoms: Normal affect, Normal mood - Skin Skin Temperature: Warm Skin Moisture: Dry Skin Color: Normal Course - Re-evaluation Re-evalutation: 11/14/19 00:44 0044 hours: pt's left weakness has lessened. Remainder of exam grossly unchanged 11/14/19 02:24 Results of ED MSE discussed with patient. All questions were answered. Recommendation for admission discussed with patient. - Laboratory Result Diagrams: 11/13/19 22:24 11/13/19 22:24 - Diagnostic Test Radiology reviewed: Reports reviewed - EKG Interpretation by Me Additional EKG results interpreted by me: 11/14/19 02:24 EKG obtained on 11/13/2019 at 2237 hrs. was interpreted by this MD. Findings: Normal sinus rhythm, rate 75, left axis deviation is present, P waves preceding QRS complexes, QRS complexes appear narrow, there are no obvious patterns of ST elevation or depression present to suggest acute myocardial ischemia or infarction. Impression: Normal sinus rhythm with left axis deviation and nonspecific ST segments. ED Alteplase Inc/Exc Criteria - Date/Time patient last known well: Date/Time: 1400 - Date/Time patient arrived in ED: _: 2205 - Inclusion Criteria: 1: Patient presented to ED within 3 hours of acute ischemic stroke symptom onset? -: No 2: Did baseline CT exclude intracranial hemorrhage and/or other risk factors? -: Yes 3: Is the age of the patient 18 years of age or greater? -: Yes : If any of the above questions are answered "NO" then stop, patient is not a candidate for Alteplase, : If all of the above questions are answered "YES" then continue with Exclusion Criteria. - Exclusion Criteria: 1: Is there evidence of intracranial hemorrhage on baseline CT? -: No 2: Is there suspicion of subarachnoid hemorrhage (even if CT negative)? -: No 3: Is there a history of serious head trauma, recent previous stroke or MA within 3 months? -: No 4: Does the patient have a clinical presentation consistent with MA or post-MA pericarditis? -: No 5: Is there history of intracranial hemorrhage? -: No 6: On repeated measurement is Systolic BP greater than 185mmHg or Diastolic BP greater that 110 mmHg and is aggressive treatment needed to reduce blood pressure to these limits (e.g. constant infusion of an anti-hypertensive)? -: No 7: Did the patient awake with stroke symptoms? -: No 8: Has the patient had a lumbar puncture or an arterial puncture at a non- compressile site within 7 days? -: No 9: With in the last 14 days did the patient have surgery or major trauma? -: No 10: Is the patient or less than 2 weeks? -: No 11: Was there any active bleeding or acute trauma? -: No 12: Does the patient have intracranial neoplasm, arteriovenous malformation or aneurysm? -: No 13: Does the patient have abnormal glucose (less than 50 or greater than 400mg/dl)? Record glucose in Comment. -: Yes - 439 14: Patient has rapidly improving symptoms at the time Alteplase is to be Administered. -: No 15: Does the patient have any risks for bleeding, including but not limited to: a.: Current use of Coumadin with PT greater than 15 seconds or INR greater than 1.7. b.: Current use of Pradaxa (Dabigatran). c.: Heparin administereed within the past 48 hours and PTT elevated. d.: Platelet count less than 100,000/mm. e.: Major surgery or serious trauma within 14 days. f.: Gastrointestinal or gynecological urinary bleeding within 14 days. g.: Myocardial Infarction (MA) within 3 months. -: No : If the answer to any of the above questions is "YES" then stop, the patient is not a candidate for Alteplase. : If the answer to all of the above questions is "NO" then the patient may be eligible for the Administration of Alteplase. : If the patient is noted to have seizure activity at onset of Stroke symptoms; Consult Neurologist for further evaluation. - The patient is: -: Included and is eligible to receive Alteplase. *Initiate bed placement at higher level of care* --: No Reviewed risks & benefits of thrombolytic therapy: I have reviewed the risks and benefits of thrombolytic therapy with the patient and/or his/her family. -: Excluded and not eligible to receive Alteplase for the above exclusions. -: Excluded and not eligible to receive Alteplase for other reasons (specify in comments): - Diagnosis of TIA: -: Patient presented with transient symptoms that are now resolved and no other neurologic findings are currently present. List symptoms in comments. -: Patient is NOT a candidate for tPA. -: ____(put name in comment) has been consulted for admission and continued evaluation of risk factor assessment. ED NIH Stroke Scale - NIH Stroke Scale When completed:: Protocol *: 1. NIH scale should be completed with appropriate accompanying assessment tools. *: 2. The NIH should reflect what the patient is capable of doing and should not be coached by the clinician. 1a. Level of Consciousness: 0=Alert;keenly responsive -: 1=Drowsy -: 2=Obtunded -: 3=Coma/unresponsive or reflex to noxious stimuli. 1a. Responses: 0 1b. Orientation Questions: a. What month is it? -: b. How old are you? -: 0=Answers both questions correctly. -: 1=Answers one question correctly or patient is intubated or has orotracheal trauma. -: 2=Answers neither question correctly. 1b. Responses: 0 1c. Response to commands: a. Open and close eyes? -: b. Basket Hand Braider and release hand? -: Credit is given despite weakness. Demonstration of task is permitted. Substitute command if hands cannot be used. -: 0=Performs both tasks correctly -: 1=Performs one task correctly -: 2=Performs neither task correctly 1c. Responses: 0 2. Gaze: Establish eye contact and instruct patient to "Follow my finger" -: 0=Normal -: 1=Partial gaze palsy. Gaze is abnormal in one or both eyes, but where forced deviation or total gaze paresis is not present. -: 2=Forced deviation or total gaze paresis. 2. Responses: 0 3. Visual Streeter: Sees fingers in all four quadrants. -: 0=No visual loss. -: 1=Partial hemianopsia. -: 2=Complete hemianopsia. -: 3=Bilateral hemianopsia (including Cortical blindness) 3. Responses: 0 4. Facial Movement: Instruct patient to: -: a. Show me your teeth -: b. Raise your eyebrows -: c. Close your eyes -: d. Smile -: 0=Normal symmetrical movement -: 1=Minor paralysis (flattened nasolabial fold, asymmetry on smiling). -: 2=Partial paralysis (total or near total paralysis of lower face). -: 3=Complete paralysis of upper and lower face 4. Responses: 0 5. Motor functions (left arm): Alternate sides and extend each arm with palms down (90 degrees if sitting or 45 degrees for supine). -: 0=No drift;limb holds for full 10 seconds. -: 1=Drift; limb holds but drifts down before full 10 seconds, but does not hit bed. -: 2=Some effort against gravity; limb cannot get to or maintain position. -: 3=No effort against gravity; limb falls. -: 4=No movement. -: UN=Amputation, joint fusion, explain in comments. 5. Responses (left arm): 0 5. Motor Functions (right arm): Alternate sides and extend each arm with palms down (90 degrees if sitting or 45 degrees for supine). -: 0=No drift;limb holds for full 10 seconds. -: 1=Drift; limb holds but drifts down before full 10 seconds, but does not hit bed. -: 2=Some effort against gravity; limb cannot get to or maintain position. -: 3=No effort against gravity; limb falls. -: 4=No movement. -: UN=Amputation, joint fusion, explain in comments. 5. Responses (right arm): 0 6. Motor Functions (left leg): With patient lying supine, alternate sides and extend each leg (30 degrees always while supine). -: 0=No drift, leg holds position for full 5 seconds -: 1=Drift; leg falls before full 5 seconds but does not hit bed. -: 2=Some effort against gravity, leg falls to bed but some effort against gravity. -: 3=No effort against gravity, leg falls to bed immediately. -: 4=No movement. -: UN=Amputation, joint fusion; explain in comments. 6. Responses (left leg): 3 6. Motor Functions (right leg): With patient lying supine, alternate sides and extend each leg (30 degrees always while supine). -: 0=No drift, leg holds position for full 5 seconds -: 1=Drift; leg falls before full 5 seconds but does not hit bed. -: 2=Some effort against gravity, leg falls to bed but some effort against gravity. -: 3=No effort against gravity, leg falls to bed immediately. -: 4=No movement. -: UN=Amputation, joint fusion; explain in comments. 6. Responses (right leg): 0 7. Limb Ataxia: With eyes open instruct patient to: -: a. "Touch your finger to your nose". -: b. "Touch your heel to your miguel" -: 0=Absent -: 1=Present in one limb. -: 2=Present in two limbs. -: UN=Amputation or joint fusion; explain in comments. 7. Responses: 0 8. Sensory: Test sensation using pinprick or noxious stimuli. Test as many body parts as possible. -: 0=Normal;no sensory loss -: 1=Mile to moderate sensory loss (patient feels pin prick but is less sharp on affected side). -: 2=Severe or total sensory loss. 8. Responses: 0 9. Best Language: Instruct patient to: -: a. "Describe what you see in this picture." -: b. "Name the items in this picture." -: c. "Read these sentences." -: 0=No aphasia, normal -: 1=Mild to moderate aphasia. -: 2=Severe aphasia -: 3=Mute, global aphasia, no usable speech or auditory comprehension. 9. Responses: 1 10. Articulation, Dysarthia: Instruct patient to: -: "Read these words" or "Repeat these words" -: 0=Normal -: 1=Mild to moderate; patient may slur some words but can be understood without difficulty. -: 2=Severe; patients speech so slurred as to be unintelligible in the absence of dysphasia. -: UN=Intubated or other physical barrier, explain in comments. 10. Responses: 1 11. Extinction or inattention: 0=No abnormality -: 1= Visual, tactile, auditory, spatial, or personal inattention or extinction to bilateral simulation in one or the sensory modalities. -: 2=Profound an-inattention or an-inattention to more than one modality; does not recognize own hand. 11. Responses: 0 Total Score: 5 Discharge - Discharge Clinical Impression: TIA (transient ischemic attack) Qualifiers: Transient cerebral ischemia type: unspecified Qualified Code(s): G45.9 - Transient cerebral ischemic attack, unspecified Condition: Good Disposition: ADMITTED INPATIENT Admitting Provider: Joe (Hospitalist) Unit Admitted: IMCU I personally performed the services described in the documentation, reviewed and edited the documentation which was dictated to the scribe in my presence, and it accurately records my words and actions.
[2019-11-13 22:53] LABS: INTERNATIONAL RATION (INR) 0.84; PROTHROMBIN TIME 11.5 SEC (11.4-15.4)
[2019-11-13 22:54] LABS: ABSOLUTE BASOPHILS # (AUTO) 0.1 10^3/uL (0.0-0.2); ABSOLUTE EOSINOPHILS # (AUTO) 0.2 10^3/uL (0.0-0.6); ABSOLUTE LYMPHOCYTES (AUTO) 2.1 10^3/uL (0.5-4.7); ABSOLUTE MONOCYTES (AUTO) 0.5 10^3/uL (0.1-1.4); ABSOLUTE NEUT (AUTO) 2.8 10^3/uL (1.7-8.2); BASOPHILS % (AUTO) 1.1 % (0-2); EOSINOPHILS % (AUTO) 3.3 % (0-6); HEMATOCRIT 40.6 % (36.0-47.0); LYMPHOCYTES % (AUTO) 36.7 % (13-45); MEAN CORPUSCULAR HEMOGLOBIN 28.5 pg (27.0-33.4); MEAN CORPUSCULAR HGB CONC 34.4 g/dL (32.0-36.0); MEAN CORPUSCULAR VOLUME 83 fl (80-97); MONOCYTES % (AUTO) 8.9 % (3-13); PARTIAL THROMBOPLASTIN TIME 28.3 SEC (23.5-35.8); PLATELET COUNT 201 10^3/uL (150-450); RED BLOOD COUNT 4.91 10^6/uL (3.72-5.28); TOTAL CELLS COUNTED % (AUTO) 100 %; WHITE BLOOD COUNT 5.7 10^3/uL (4.0-10.5)
--- NOTE | 2019-11-13 23:00 | RADIOLOGY REPORT (SQ) ---
EXAM DESCRIPTION: XR CHEST 1 VIEW COMPLETED DATE/TME: 11/13/2019 22:14 CLINICAL HISTORY: 59 years, Female, weakness COMPARISON: 07/02/2019 chest NUMBER OF VIEWS: 1 TECHNIQUE: Portable chest LIMITATIONS: None. FINDINGS: Heart size normal. Loop recorder projects over the left hemithorax. Minimal scarring left lung base. Osteopenia. Lungs otherwise clear. No pneumothorax IMPRESSION: No acute cardiopulmonary process copyright 2010 [employer]- All Rights Reserved
--- NOTE | 2019-11-13 23:01 | RADIOLOGY REPORT (SQ) ---
CT HEAD WITHOUT IV CONTRAST CLINICAL STATEMENT: left sided weakness x 8 hours, h/o prior cva TECHNIQUE: Axial CT images from skull base to vertex without IV contrast. This exam was performed according to our departmental dose optimization program, and includes the following measures where applicable: automated exposure control, adjustment of the mAs and/or kVp according to patient size and/or exam, and an iterative reconstruction algorithm. COMPARISON: Unenhanced CT scan of the brain 09/21/2019 FINDINGS: There is no acute intracranial hemorrhage, mass, mass effect or abnormal extra-axial fluid collection. No evidence of an acute territorial infarct is identified. Ventricles and basilar cisterns are patent. There is an old lacunar infarct in the right basal ganglion which is unchanged. Subtle low density is present in the periventricular white matter bilaterally suggestive of small vessel ischemic disease. Overall the appearance of the brain parenchyma is stable. Calvaria: The skull base and calvaria demonstrate no abnormality. Paranasal sinuses: Visualized portions of the orbits and paranasal sinuses are unremarkable. skull base: Unremarkable IMPRESSION: 1. No acute hemorrhage or mass lesion. 2. Old lacunar infarct in the right basal ganglion. If there is high clinical concern for acute stroke then MRI is recommended. 3. Overall appearance the brain parenchyma is stable.
[2019-11-13 23:02] LABS: APPEARANCE,URINE CLEAR; BILIRUBIN,URINE NEGATIVE (NEGATIVE); COLOR,URINE COLORLESS; GLUCOSE, URINE >=500 mg/dL (NEGATIVE); KETONES,URINE NEGATIVE (NEGATIVE); PROTEIN,URINE NEGATIVE (NEGATIVE); URINE SPECIFIC GRAVITY 1.027; UROBILINOGEN,URINE NEGATIVE mg/dL (<2.0)
[2019-11-13 23:05] LABS: ALBUMIN 4.4 g/dL (3.5-5.0); ALKALINE PHOSPHATASE 78 U/L (38-126); ANION GAP 10 (5-19); ASPARTATE AMINO TRANSFERASE 20 U/L (14-36); BILIRUBIN,DIRECT 0.1 mg/dL (0.0-0.4); BILIRUBIN,TOTAL 0.7 mg/dL (0.2-1.3); BLOOD UREA NITROGEN 14 mg/dL (7-20); CALCIUM 9.6 mg/dL (8.4-10.2); CARBON DIOXIDE 28 mmol/L (22-30); CHLORIDE 95 mmol/L (98-107); POTASSIUM 4.3 mmol/L (3.6-5.0); TOTAL PROTEIN 7.1 g/dL (6.3-8.2)
[2019-11-13] MEDS: NORMAL SALINE 500 ML IV ONE ×2 (23:11→23:21)
[2019-11-13 23:17] LABS: GLUCOSE 476 mg/dL (75-110)
[2019-11-13] MEDS ORDERED: INSULIN REG, HUMAN 100 UNIT/ML 3 ML VIAL (PYX) SUBCUT ONE (23:34)
--- NOTE | 2019-11-14 02:00 | RADIOLOGY REPORT (SQ) ---
CTA head and neck: Technique: Postcontrast imaging was obtained through the head and neck after intravenous contrast is administered utilizing a CTA protocol. MIP reconstructed sagittal and coronal images were also obtained. NASCET Criteria was utilized for evaluation of potential vascular stenosis in the neck. This exam was performed according to our departmental dose-optimization program, which includes automated exposure control, adjustment of the mA and/or KV according to the patient's size and/or use of iterative reconstruction technique. COMPARISON: CT the head from 11/13/2019 HISTORY: 59-year-old patient with concern for persistent left-sided weakness FINDINGS: CTA HEAD: No discrete filling defect is seen within the middle, anterior, and posterior cerebral arteries. The bilateral posterior to indicating arteries are not well visualized. The visualized vertebral arteries appear unremarkable. The carotid arteries appear to be well opacified. No obvious aneurysm or stenosis is readily apparent. The basilar artery and visualized portions of the posterior circulation appear unremarkable. CTA NECK: There is normal three-vessel aortic arch morphology. The brachiocephalic and proximal subclavian arteries are patent and normal in course and caliber. The common carotid arteries, carotid bulbs and proximal external carotid arteries are patent and normal in course and caliber. There is mild/moderate atherosclerotic calcification at the carotid bulb on the right side. The right internal carotid artery demonstrates approximately 50-69% narrowing at the origin due to atheromatous plaque and atherosclerotic calcification. This involves a approximately 1 cm segment. No findings are seen to suggest a hemodynamically significant stenosis on the left side. There is a codominant vertebral arterial system. The vertebral arteries are patent and normal in course and caliber. IMPRESSION: No discrete filling defect, aneurysm, or obvious stenosis is seen within the anterior or posterior intracranial circulation. There is an approximately 50-69% stenosis at the right internal carotid artery at the carotid bulb.
[2019-11-14] MEDS ORDERED: ASPIRIN 81 MG TABLET, ENT COATED PO ONE (02:23)
[2019-11-14] MEDS ORDERED: DEXTROSE 50%-WATER 25 GM/50 ML DISP.SYRIN IV PRN ×2 (02:23)
[2019-11-14] MEDS ORDERED: GLUCAGON,HUMAN RECOMB 1 MG INJ IM PRN (02:23)
[2019-11-14] MEDS ORDERED: ATORVASTATIN CALCIUM 80 MG TABLET PO ONE (02:23)
[2019-11-14] MEDS ORDERED: DOCUSATE SODIUM 100 MG CAPSULE PO PRN (02:23)
[2019-11-14] MEDS ORDERED: CLOPIDOGREL BISULFATE 75 MG TABLET PO ONE (02:23)
[2019-11-14] MEDS ORDERED: MAGNESIUM HYDROXIDE SUSP 30 ML UDCUP PO PRN (02:23)
[2019-11-14] MEDS ORDERED: DEXTROSE 40% GEL 15 GM TUBE PO PRN ×2 (02:23)
[2019-11-14] MEDS: ASPIRIN 325 MG TABLET, ENT COATED PO SCH ×2 (02:53→09:53)
[2019-11-14] MEDS: ATORVASTATIN CALCIUM 80 MG TABLET PO SCH ×2 (02:54→21:12)
[2019-11-14 03:31] LABS: URINE AMPHETAMINES SCREEN NEGATIVE; URINE BARBITURATES SCREEN NEGATIVE; URINE BENZODIAZEPINES SCREEN NEGATIVE; URINE COCAINE SCREEN NEGATIVE; URINE MARIJUANA (THC) SCREEN NEGATIVE; URINE METHADONE SCREEN NEGATIVE; URINE PHENCYCLIDINE SCREEN NEGATIVE
[2019-11-14] MEDS: ACETAMINOPHEN 325 MG TABLET PO PRN ×2 (05:02→13:17)
[2019-11-14] MEDS: HEPARIN SOD (PORCINE) 5,000 UNIT/ML 1 ML VIAL SUBCUT SCH ×3 (05:08→21:12)
--- NOTE | 2019-11-14 05:22 | PDOC H&P ---
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 She denies palpitations, blurred vision, confusion or headache, in the emergency department she is found to have hyperglycemia in the 400s, slurred speech and 4 out of 5 strength on the left side. Vitals and imaging are otherwise unremarkable for acute finding. She is started on aspirin and referred to the hospitalist for admission. Patient admits to running out of Plavix at least 3 days ago. She otherwise denies changes in [id number] or prescribed medication regiment. Past Medical History Cardiac Medical History: Reports: Hyperlipidema, Hypertension Pulmonary Medical History: Reports: Asthma Neurological Medical History: Reports: Migraine Endocrine Medical History: Reports: Diabetes Mellitus Type 1, Diabetes Mellitus Type 2 Denies: Hyperthyroidism, Hypothyroidism Malignancy Medical History: Reports: Cervical Cancer GI Medical History: Reports: Gastroesophageal Reflux Disease Denies: Cirrhosis, Hepatitis Musculoskeltal Medical History: Reports: Arthritis, Fibromyalgia Psychiatric Medical History: Reports: Depression Denies: Tobacco Dependency Past Surgical History Past Surgical History: Reports: Section - 2, Cholecystectomy, Herniorrhaphy, Hysterectomy, Orthopedic Surgery - bilateral toes and elbows left knee twice, Tubal Ligation, Other - Ventral hernia and pseudocyst removal Denies: Appendectomy Social History Information Source: Patient, [facility] Records Lives with: Spouse/Significant other Smoking Status: Former Smoker Cigarettes Packs Per Day: 1.5 Electronic Cigarette use?: No Number of Years Smokin Last Time Smoked: 2003 Frequency of Alcohol Use: None Hx Recreational Drug Use: No Drugs: None Hx Prescription Drug Abuse: No - Advance Directive Resuscitation Status: Full Code Family History Family History: Reviewed & Not Pertinent, Arthritis, CVA, DM, Hyperlipidemia, Hypertension, Malignancy, Thyroid Disfunction Parental Family History Reviewed: Yes Children Family History Reviewed: Yes Sibling(s) Family History Reviewed.: Yes Medication/Allergy Home Medications: Acetaminophen [Tylenol Extra Strength 500 mg Tablet] 1,500 mg PO BIDP PRN 05/04/19 Aspirin [Ecotrin 81 mg EC Tablet] 81 mg PO DAILY 05/04/19 Clopidogrel Bisulfate [Plavix 75 mg Tablet] 75 mg PO DAILY 05/04/19 Hydrochlorothiazide [Hydrodiuril 12.5 mg Tablet] 12.5 mg PO DAILY 05/04/19 Losartan Potassium [Cozaar 100 mg Tablet] 100 mg PO DAILY 05/04/19 Meclizine HCl [Antivert 25 mg Tablet] 25 mg PO TIDP PRN 05/04/19 Metoprolol Succinate [Toprol Xl 25 mg Tab.sr] 25 mg PO DAILY 05/04/19 Multivitamin [Multivitamins] 1 each PO DAILY 05/04/19 [place]-3 Fatty Acids/Fish Oil [[place] 3 Fish Oil Softgel] 1 each PO DAILY 05/04/19 Pantoprazole Sodium [Protonix [address] Tablet] 20 mg PO QAM 05/04/19 Quetiapine Fumarate [Seroquel 100 mg Tablet] 100 mg PO QHS 05/04/19 Tumeric 500 mg PO DAILY 05/04/19 Insulin Degludec [Tresiba Flextouch U-100] 30 unit SQ BID 07/02/19 Atorvastatin Calcium [Lipitor 80 mg Tablet] 80 mg PO QHS 30 Days #30 tablet NS 07/03/19 Buspirone HCl 1 tab PO QAM #30 tab 08/04/19 Buspirone HCl [Buspar 10 mg Tablet] 10 mg PO QHS #30 tab 08/04/19 Dapagliflozin Propanediol [Farxiga] 10 mg PO DAILY 08/04/19 Insulin Aspart [Novolog Flexpen] 12 units SUBCUT AC 08/04/19 Metronidazole [Flagyl 500 mg Tablet] 500 mg PO BID #14 tablet 08/07/19 Miscellaneous Medication [[place] Cream] 1 applic TOP ASDIR PRN #60 gm 08/07/19 Na Phos,M-B/Na Phos,Di-Ba [Fleet Enema (Adult) 133 ml] 1 applic MI DAILYP PRN #1 enema 10/12/19 Polyethylene Glycol 3350 [Miralax] 1 cap PO DAILY #527 powder 10/12/19 Ibuprofen [Motrin 600 Mg Tablet] 600 mg PO TID #15 tablet 11/05/19 Allergies/Adverse Reactions: Penicillins Allergy (Unknown, Verified 09/22/19 12:45) cephalexin monohydrate [From Keflex] Allergy (Verified 09/22/19 12:45) ciprofloxacin [From Cipro] Allergy (Verified 09/22/19 12:45) codeine Allergy (Verified 09/22/19 12:45) latex [Latex] Allergy (Verified 09/22/19 12:45) metformin Allergy (Verified 09/22/19 12:45) nitrofurantoin macrocrystalline [From Macrodantin] Allergy (Verified 09/22/19 12:45) penicillin G Allergy (Verified 09/22/19 12:45) Sulfa (Sulfonamide Antibiotics) Allergy (Verified 09/22/19 12:45) tetracycline [Tetracycline] Allergy (Verified 09/22/19 12:45) nitroglycerin [From Nitrostat] Adverse Reaction (Verified 09/22/19 12:45) Review of Systems Constitutional: ABSENT: chills, fever(s), headache(s), weight gain, weight loss Eyes: ABSENT: visual disturbances Ears: ABSENT: hearing changes Cardiovascular: ABSENT: chest pain, dyspnea on exertion, edema, orthropnea, palpitations Respiratory: ABSENT: cough, hemoptysis Gastrointestinal: ABSENT: abdominal pain, constipation, diarrhea, hematemesis, hematochezia, nausea, vomiting Genitourinary: ABSENT: dysuria, hematuria Musculoskeletal: ABSENT: joint swelling Integumentary: ABSENT: rash, wounds Neurological: ABSENT: abnormal gait, abnormal speech, confusion, dizziness, focal weakness, syncope Psychiatric: ABSENT: anxiety, depression, homidical ideation, suicidal ideation Endocrine: ABSENT: cold intolerance, heat intolerance, polydipsia, polyuria Hematologic/Lymphatic: ABSENT: easy bleeding, easy bruising Physical Exam Vital Signs: Temp Pulse Resp BP Pulse Ox 97.7 F 77 18 138/67 H 92 11/14/19 04:03 11/14/19 04:03 11/14/19 03:59 11/14/19 04:03 11/14/19 04:03 Intake & Output 11/12/19 11/13/19 11/14/19 11:59 11:59 11:59 Intake Total 1000 Balance 1000 Weight 82.4 kg General appearance: PRESENT: cooperative, mild distress, well-developed, well- nourished, other - Slurred speech Head exam: PRESENT: atraumatic, normocephalic Eye exam: PRESENT: conjunctiva pink, EOMI, PERRLA. ABSENT: scleral icterus Ear exam: PRESENT: normal external ear exam Mouth exam: PRESENT: moist, tongue midline Neck exam: ABSENT: carotid bruit, JVD, lymphadenopathy, thyromegaly Respiratory exam: PRESENT: clear to auscultation gerardo. ABSENT: rales, rhonchi, wheezes Cardiovascular exam: PRESENT: RRR. ABSENT: diastolic murmur, rubs, systolic murmur Pulses: PRESENT: normal dorsalis pedis pul Vascular exam: PRESENT: normal capillary refill GI/Abdominal exam: PRESENT: normal bowel sounds, soft. ABSENT: distended, guarding, mass, organolmegaly, rebound, tenderness Rectal exam: PRESENT: deferred Extremities exam: PRESENT: full ROM. ABSENT: calf tenderness, clubbing, pedal edema Musculoskeletal exam: PRESENT: other - 4 of 5 strength on the left side. Neurological exam: PRESENT: alert, awake, oriented to person, oriented to place, oriented to time, oriented to situation, CN II-XII grossly intact. ABSENT: motor sensory deficit Psychiatric exam: PRESENT: appropriate affect, normal mood. ABSENT: homicidal ideation, suicidal ideation Skin exam: PRESENT: dry, intact, warm. ABSENT: cyanosis, rash Results Laboratory Results: 11/13/19 22:24 11/13/19 22:24 11/13/19 11/13/19 11/13/19 22:24 22:24 22:29 WBC 5.7 RBC 4.91 Hgb 14.0 Hct 40.6 MCV 83 MCH 28.5 MCHC 34.4 RDW 14.0 Plt Count 201 Seg Neutrophils % 50.0 Sodium 133.3 L Potassium 4.3 Chloride 95 L Carbon Dioxide 28 Anion Gap 10 BUN 14 Creatinine 0.68 Est GFR ( Amer) > 60 Glucose 476 H* Calcium 9.6 Total Bilirubin 0.7 AST 20 Alkaline Phosphatase 78 Total Protein 7.1 Albumin 4.4 Urine Color COLORLESS Urine Appearance CLEAR Urine pH 7.0 Ur Specific [place] 1.027 Urine Protein NEGATIVE Urine Glucose (UA) >=500 H Urine Ketones NEGATIVE Urine Blood NEGATIVE Urine RBC (Auto) 0 11/13/19 22:24 Troponin I < 0.012 Impressions: Head CT 11/13/19 22:10 IMPRESSION: 1. No acute hemorrhage or mass lesion. 2. Old lacunar infarct in the right basal ganglion. If there is high clinical concern for acute stroke then MRI is recommended. 3. Overall appearance the brain parenchyma is stable. Chest X-Ray 11/13/19 22:14 IMPRESSION: No acute cardiopulmonary process copyright 2011 [employer]- All Rights Reserved Head CTA 11/14/19 00:40 IMPRESSION: No discrete filling defect, aneurysm, or obvious stenosis is seen within the anterior or posterior intracranial circulation. There is an approximately 50-69% stenosis at the right internal carotid artery at the carotid bulb. Neck CTA 11/14/19 00:40 IMPRESSION: No discrete filling defect, aneurysm, or obvious stenosis is seen within the anterior or posterior intracranial circulation. There is an approximately 50-69% stenosis at the right internal carotid artery at the carotid bulb. Assessment and Plan - Diagnosis (1) CVA (cerebral vascular accident) Is this a current diagnosis for this admission?: Yes Plan: Likely acute on chronic CVA of the same distribution. CVA care set deployed, aspirin, Plavix, Lipitor initiated, follow-up MRI, speech, occupational and physical therapy (2) Hypertension Is this a current diagnosis for this admission?: Yes Plan: Permissive hypertension prior to resumption of home meds. 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 before meals, follow- up A1c (4) Seborrheic dermatitis Is this a current diagnosis for this admission?: Yes Plan: Ketoconazole shampoo - Time Time Spent with patient: 25-34 minutes - Inpatient Certification Medical Necessity: Need Close Monitoring Due to Risk of Patient Decompensation
[2019-11-14 06:26] LABS: ANION GAP 9 (5-19); BLOOD UREA NITROGEN 12 mg/dL (7-20); CALCIUM 9.3 mg/dL (8.4-10.2); CARBON DIOXIDE 25 mmol/L (22-30); CHLORIDE 103 mmol/L (98-107); CHOLESTEROL 103.94 mg/dL (0-200); GLUCOSE 243 mg/dL (75-110); POTASSIUM 3.8 mmol/L (3.6-5.0); TRIGLYCERIDES 166 mg/dL (<150)
[2019-11-14 06:37] LABS: DIRECT LDL 46 mg/dL (<100)
[2019-11-14 06:41] LABS: VLDL CHOLESTEROL 33.2 mg/dL (10-31)
[2019-11-14] MEDS: INSULIN LISPRO 100 UNIT/ML 3 ML VIAL SUBCUT SCH ×3 (08:23→16:37)
[2019-11-14] MEDS: HUM INSULIN NPH/REG INSULIN HM 100 UNIT/1 ML 3 ML SUBCUT SCH ×2 (08:24→16:37)
--- NOTE | 2019-11-14 10:01 | RADIOLOGY REPORT (SQ) ---
EXAM DESCRIPTION: MRI HEAD WITHOUT IMAGES COMPLETED DATE/TIME: 11/14/2019 9:38 am REASON FOR STUDY: Acute CVA of chronic distribution COMPARISON: CT dated 11/13/2019. MR dated 07/02/2019. TECHNIQUE: Multiplanar imaging includes non-contrasted T1, T2, FLAIR, and diffusion with ADC map seq uences. Images stored on PACS. LIMITATIONS: None. FINDINGS: ANATOMY: No anomalies. Normal vascular flow voids. Pituitary fossa normal. CSF SPACES: Normal in size and contour. No hemorrhage. CEREBRUM: Sulci and gyri normal in size and contour. Normal white matter signal on FLAIR imaging. No evidence of hemorrhage, mass, or extraaxial fluid collection. POSTERIOR FOSSA: No signal alteration. No hemorrhage. No edema, masses or mass effect. Internal justin tory canals, cerebello-pontine angles, mastoids normal. DIFFUSION IMAGING: Negative for acute or sub-acute infarction. ORBITS: No masses. Globes normal. PARANASAL SINUSES: No fluid levels. Mucosa normal. OTHER: No other significant finding. IMPRESSION: NORMAL MRI OF THE BRAIN WITHOUT INTRAVENOUS GADOLINIUM CONTRAST. EVIDENCE OF ACUTE STROKE: NO. TECHNICAL DOCUMENTATION: JOB ID: [id number] 2010 [employer]- All Rights Reserved Reading location - IP/workstation name: [email or web address]
--- NOTE | 2019-11-14 13:22 | Progress Note ---
Provider Note Provider Note: MRI of the head was negative for acute stroke, but she certainly does have features suggestive of a stroke. She still has weakness in her left leg, but when she is able to get up and walk with a walker she can go about 60 feet. She says she cannot lift her left leg up off the bed. She also still has some dysarthria. We continue medical management.
[2019-11-14] MEDS ORDERED: (PENDING PHARMACY ID) (Insulin Degludec [Tresiba Flextouch U-100] 30 UNIT) SQ SCH (18:00)
[2019-11-14] MEDS ORDERED: QUETIAPINE FUMARATE 100 MG TABLET PO SCH (22:00)
--- NOTE | 2019-11-14 22:40 | EKG REPORT ---
SEVERITY:- BORDERLINE ECG - SINUS RHYTHM BORDERLINE LEFT AXIS DEVIATION CONSIDER ANTERIOR INFARCT : Confirmed by: Eileen Bellamy MD 14-Nov-2019 22:40:24
[2019-11-15 05:54] LABS: ABSOLUTE BASOPHILS # (AUTO) 0.1 10^3/uL (0.0-0.2); ABSOLUTE MONOCYTES (AUTO) 0.5 10^3/uL (0.1-1.4); ABSOLUTE NEUT (AUTO) 2.9 10^3/uL (1.7-8.2); HEMATOCRIT 38.6 % (36.0-47.0); MEAN CORPUSCULAR VOLUME 82 fl (80-97); RED BLOOD COUNT 4.74 10^6/uL (3.72-5.28); TOTAL CELLS COUNTED % (AUTO) 100 %
[2019-11-15 06:00] LABS: ABSOLUTE EOSINOPHILS # (AUTO) 0.2 10^3/uL (0.0-0.6); ABSOLUTE LYMPHOCYTES (AUTO) 1.7 10^3/uL (0.5-4.7); EOSINOPHILS % (AUTO) 4.6 % (0-6); HEMOGLOBIN 13.4 g/dL (12.0-15.5); LYMPHOCYTES % (AUTO) 31.5 % (13-45); MEAN CORPUSCULAR HEMOGLOBIN 28.2 pg (27.0-33.4); MEAN CORPUSCULAR HGB CONC 34.6 g/dL (32.0-36.0); MONOCYTES % (AUTO) 9.4 % (3-13); PLATELET COUNT 182 10^3/uL (150-450); RED CELL DISTRIBUTION WIDTH 14.3 % (11.5-14.0); SEGMENTED NEUTROPHILS % (AUTO) 53.5 % (42-78); WHITE BLOOD COUNT 5.4 10^3/uL (4.0-10.5)
[2019-11-15] MEDS: HEPARIN SOD (PORCINE) 5,000 UNIT/ML 1 ML VIAL SUBCUT SCH ×2 (06:13→13:03)
[2019-11-15 06:23] LABS: ANION GAP 9 (5-19); BLOOD UREA NITROGEN 13 mg/dL (7-20); CALCIUM 9.2 mg/dL (8.4-10.2); CARBON DIOXIDE 26 mmol/L (22-30); CHLORIDE 100 mmol/L (98-107); GLUCOSE 257 mg/dL (75-110); POTASSIUM 3.7 mmol/L (3.6-5.0)
[2019-11-15] MEDS: HUM INSULIN NPH/REG INSULIN HM 100 UNIT/1 ML 3 ML SUBCUT SCH ×2 (08:19→17:44)
[2019-11-15] MEDS: INSULIN LISPRO 100 UNIT/ML 3 ML VIAL SUBCUT SCH ×3 (08:20→17:43)
[2019-11-15] MEDS: ASPIRIN 325 MG TABLET, ENT COATED PO SCH (09:12)
[2019-11-15] MEDS ORDERED: (PENDING PHARMACY ID) (Dapagliflozin Propanediol [Farxiga] 10 MG) PO SCH (10:00)
[2019-11-15] MEDS ORDERED: METOPROLOL SUCCINATE 25 MG TAB.SR.24H PO SCH (10:00)
[2019-11-15 11:57] VITALS: BP 138/67
--- NOTE | 2019-11-15 13:52 | PDOC DISCHARGE SUMMARY ---
Impression - Admit/DC Date/PCP Admission Date/Primary Care Provider: 11/14/19 02:56 KATERYNA GONSALEZ MD Discharge Date: 11/15/19 - Discharge Diagnosis (1) CVA (cerebral vascular accident) Is this a current diagnosis for this admission?: Yes (2) Diabetes mellitus Is this a current diagnosis for this admission?: Yes (3) Hypertension Is this a current diagnosis for this admission?: Yes (4) HLD (hyperlipidemia) Is this a current diagnosis for this admission?: Yes - Additional Information Resuscitation Status: Full Code Discharge Diet: Cardiac, Diabetic Discharge Activity: Balance Activity w/Rest, Slowly Increase Activity, Supervised Activity Referrals: KATERYNA GONSALEZ MD [Primary Care Provider] - 11/30/19 11:00 am (1 week) Prescriptions: Insulin Aspart [Novolog Flexpen] See Protocol SUBCUT AC #1 pen Clopidogrel Bisulfate [Plavix 75 mg Tablet] 75 mg PO DAILY #30 tablet Home Medications: Meclizine HCl [Antivert 25 mg Tablet] 12.5 mg PO TIDP PRN 05/04/19 Metoprolol Succinate [Toprol Xl 25 mg Tab.sr] 25 mg PO DAILY 05/04/19 [place]-3 Fatty Acids/Fish Oil [[place] 3 Fish Oil Softgel] 1 each PO DAILY 05/04/19 Quetiapine Fumarate [Seroquel 100 mg Tablet] 100 mg PO QHS 05/04/19 Tumeric 500 mg PO DAILY 05/04/19 Insulin Degludec [Tresiba Flextouch U-100] 30 unit SQ BID 07/02/19 Dapagliflozin Propanediol [Farxiga] 10 mg PO DAILY 08/04/19 Amlodipine Besylate [Norvasc 2.5 mg Tablet] 2.5 mg PO DAILY 11/14/19 Atorvastatin Calcium [Lipitor 40 mg Tablet] 40 mg PO QHS 11/14/19 Docusate Sodium [Colace 100 mg Capsule] 300 mg PO DAILY 11/14/19 Loperamide HCl [Imodium 2 mg Capsule] 4 mg PO PRN PRN 11/14/19 Pantoprazole Sodium [Protonix [address] Tablet] 20 mg PO QAM 11/14/19 Pregabalin 150 mg PO Q12 11/14/19 Clopidogrel Bisulfate [Plavix 75 mg Tablet] 75 mg PO DAILY #30 tablet 11/15/19 Insulin Aspart [Novolog Flexpen] See Protocol SUBCUT AC #1 pen 11/15/19 History of Present Illiness History of Present Illness: ORLY OSEI is a 59 year old female with a past medical history of 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 She denies palpitations, blurred vision, confusion or headache, in the emergency department she is found to have hyperglycemia in the 400s, slurred speech and 4 out of 5 strength on the left side. Vitals and imaging are otherwise unremarkable for acute finding. She is started on aspirin and referred to the hospitalist for admission. Patient admits to running out of Plavix at least 3 days ago. She otherwise denies changes in [id number] or prescribed medication regiment. Hospital Course Hospital Course: Her MRI was negative for acute stroke, but she manifested like an acute stroke and still has deficits. She has some persistent slurred speech, and she still has weakness in her left leg. She says she cannot hold it up off the bed against gravity, but with some assistance she is able to get up to a standing position using a walker, and was able to go 150 feet. She did have some noticeable differences between the right and the left legs, sometimes dragging the left foot, but overall she was moving fairly well. She already has a walker at home and was already doing physical therapy. Apparently she ran out of her Plavix several days before this event occurred. I have renewed her Plavix prescription. Her blood sugars were also difficult to control, and when she came in her hemoglobin A1c was 10%. In addition to her Tresiba and Farxiga, I have added NovoLog before meals. She will resume home health PT. She will continue her statin. Her labs and examination were reassuring and she was discharged in stable condition. Physical Exam Vital Signs: Temp Pulse Resp BP Pulse Ox 97.8 F 81 16 138/67 H 92 11/15/19 11:55 11/15/19 11:55 11/15/19 11:55 11/15/19 11:55 11/15/19 11:55 Intake & Output 11/14/19 11/15/19 11/16/19 06:59 06:59 06:59 Intake Total 1200 875 458 Output Total 200 0 1350 Balance 1000 875 -892 Weight 80.9 kg 81 kg General appearance: PRESENT: no acute distress, cooperative, disheveled, obese Respiratory exam: PRESENT: clear to auscultation gerardo, symmetrical, unlabored. ABSENT: accessory muscle use, chest wall tenderness, crackles, prolonged expiratory phas, rhonchi, tachypnea, wheezes Cardiovascular exam: PRESENT: RRR, +S1, +S2 Pulses: PRESENT: normal carotid pulses Vascular exam: PRESENT: normal capillary refill GI/Abdominal exam: PRESENT: normal bowel sounds, soft. ABSENT: distended, guarding, rebound, tenderness Extremities exam: ABSENT: clubbing, pedal edema Musculoskeletal exam: PRESENT: normal inspection. ABSENT: deformity Neurological exam: PRESENT: alert, awake, oriented to person, oriented to place, oriented to situation, other - Slurred speech, some persistent left-sided facial droop, left leg strength 3 out of 5 Psychiatric exam: PRESENT: appropriate affect, normal mood Skin exam: PRESENT: dry, warm Results Laboratory Results: WBC 5.4 10^3/uL (4.0-10.5) 11/15/19 05:17 RBC 4.74 10^6/uL (3.72-5.28) 11/15/19 05:17 Hgb 13.4 g/dL (12.0-15.5) 11/15/19 05:17 Hct 38.6 % (36.0-47.0) 11/15/19 05:17 MCV 82 fl (80-97) 11/15/19 05:17 MCH 28.2 pg (27.0-33.4) 11/15/19 05:17 MCHC 34.6 g/dL (32.0-36.0) 11/15/19 05:17 RDW 14.3 % (11.5-14.0) H 11/15/19 05:17 Plt Count 182 10^3/uL (150-450) 11/15/19 05:17 Lymph % (Auto) 31.5 % (13-45) 11/15/19 05:17 [place] % (Auto) 9.4 % (3-13) 11/15/19 05:17 Eos % (Auto) 4.6 % (0-6) 11/15/19 05:17 Baso % (Auto) 1.0 % (0-2) 11/15/19 05:17 Absolute Neuts (auto) 2.9 10^3/uL (1.7-8.2) 11/15/19 05:17 Absolute Lymphs (auto) 1.7 10^3/uL (0.5-4.7) 11/15/19 05:17 Absolute Monos (auto) 0.5 10^3/uL (0.1-1.4) 11/15/19 05:17 Absolute Eos (auto) 0.2 10^3/uL (0.0-0.6) 11/15/19 05:17 Absolute Basos (auto) 0.1 10^3/uL (0.0-0.2) 11/15/19 05:17 Seg Neutrophils % 53.5 % (42-78) 11/15/19 05:17 PT 11.5 SEC (11.4-15.4) 11/13/19 22:24 INR 0.84 11/13/19 22:24 APTT 28.3 SEC (23.5-35.8) 11/13/19 22:24 Sodium 135.3 mmol/L (137-145) L 11/15/19 05:17 Potassium 3.7 mmol/L (3.6-5.0) 11/15/19 05:17 Chloride 100 mmol/L (98-107) 11/15/19 05:17 Carbon Dioxide 26 mmol/L (22-30) 11/15/19 05:17 Anion Gap 9 (5-19) 11/15/19 05:17 BUN 13 mg/dL (7-20) 11/15/19 05:17 Creatinine 0.54 mg/dL (0.52-1.25) 11/15/19 05:17 Est GFR ( Amer) > 60 (>60) 11/15/19 05:17 Est GFR (MDRD) Non-Af > 60 (>60) 11/15/19 05:17 Glucose 257 mg/dL (75-110) H 11/15/19 05:17 POC Glucose 270 mg/dL (70-110) H 11/15/19 11:21 Hemoglobin A1c % 10.0 % (4.7-6.0) H 11/14/19 04:57 Calcium 9.2 mg/dL (8.4-10.2) 11/15/19 05:17 Total Bilirubin 0.7 mg/dL (0.2-1.3) 11/13/19 22:24 Direct Bilirubin 0.1 mg/dL (0.0-0.4) 11/13/19 22:24 Neonat Total Bilirubin Not Reportable 11/13/19 22:24 Neonat Direct Bilirubin Not Reportable 11/13/19 22:24 Neonat Indirect Bili Not Reportable 11/13/19 22:24 AST 20 U/L (14-36) 11/13/19 22:24 ALT 27 U/L (<35) 11/13/19 22:24 Alkaline Phosphatase 78 U/L (38-126) 11/13/19 22:24 Troponin I < 0.012 ng/mL 11/13/19 22:24 Total Protein 7.1 g/dL (6.3-8.2) 11/13/19 22:24 Albumin 4.4 g/dL (3.5-5.0) 11/13/19 22:24 Triglycerides 166 mg/dL (<150) H 11/14/19 04:57 Cholesterol 103.94 mg/dL (0-200) 11/14/19 04:57 LDL Cholesterol Direct 46 mg/dL (<100) 11/14/19 04:57 VLDL Cholesterol 33.2 mg/dL (10-31) H 11/14/19 04:57 HDL Cholesterol 38 mg/dL (>40) L 11/14/19 04:57 Urine Color COLORLESS 11/13/19 22:29 Urine Appearance CLEAR 11/13/19 22:29 Urine pH 7.0 (5.0-9.0) 11/13/19 22:29 Ur Specific [place] 1.027 11/13/19 22:29 Urine Protein NEGATIVE mg/dL (NEGATIVE) 11/13/19 22:29 Urine Glucose (UA) >=500 mg/dL (NEGATIVE) H 11/13/19 22:29 Urine Ketones NEGATIVE mg/dL (NEGATIVE) 11/13/19 22:29 Urine Blood NEGATIVE (NEGATIVE) 11/13/19 22:29 Urine Nitrite (Reflex) NEGATIVE (NEGATIVE) 11/13/19 22:29 Urine Bilirubin NEGATIVE (NEGATIVE) 11/13/19 22: Urine Urobilinogen NEGATIVE mg/dL (<2.0) 11/13/19 22:29 Leukocyte Esterase Rfl NEGATIVE (NEGATIVE) 11/13/19 22:29 Urine RBC (Auto) 0 /HPF 11/13/19 22:29 Urine WBC (Reflex) 2 /HPF 11/13/19 22:29 Urine Mucus (Auto) RARE /LPF 11/13/19 22:29 Urine Ascorbic Acid NEGATIVE (NEGATIVE) 11/13/19 22:29 Urine Opiates Screen NEGATIVE 11/13/19 22:29 Urine Methadone Screen NEGATIVE 11/13/19 22:29 Ur Barbiturates Screen NEGATIVE 11/13/19 22:29 Ur Phencyclidine Scrn NEGATIVE 11/13/19 22:29 Ur Amphetamines Screen NEGATIVE 11/13/19 22:29 U Benzodiazepines Scrn NEGATIVE 11/13/19 22:29 Urine Cocaine Screen NEGATIVE 11/13/19 22:29 U Marijuana (THC) Screen NEGATIVE 11/13/19 22:29 11/13/19 22:24 Troponin I < 0.012 Impressions: Head CT 11/13/19 22:10 IMPRESSION: 1. No acute hemorrhage or mass lesion. 2. Old lacunar infarct in the right basal ganglion. If there is high clinical concern for acute stroke then MRI is recommended. 3. Overall appearance the brain parenchyma is stable. Chest X-Ray 11/13/19 22:14 IMPRESSION: No acute cardiopulmonary process copyright 2011 [employer]- All Rights Reserved Head MRI 11/14/19 00:00 IMPRESSION: NORMAL MRI OF THE BRAIN WITHOUT INTRAVENOUS GADOLINIUM CONTRAST. EVIDENCE OF ACUTE STROKE: NO. Head CTA 11/14/19 00:40 IMPRESSION: No discrete filling defect, aneurysm, or obvious stenosis is seen within the anterior or posterior intracranial circulation. There is an approximately 50-69% stenosis at the right internal carotid artery at the carotid bulb. Neck CTA 11/14/19 00:40 IMPRESSION: No discrete filling defect, aneurysm, or obvious stenosis is seen within the anterior or posterior intracranial circulation. There is an approximately 50-69% stenosis at the right internal carotid artery at the carotid bulb. Plan Time Spent: Greater than 30 Minutes Stroke Is this a Stroke Patient?: Yes Stroke Pt being discharged on Anti-thrombolytic therapy?: Yes Stroke Pt being discharged on Anti-coagulation therapy?: No Reason(s) for not prescribing Anti-coagulation therapy:: Not indicated Stroke Pt being discharged on Statins?: Yes Acute Heart Failure - Is this a Heart Failure Patient?: No
== END 2019-11-15 18:25 | disposition home or self-care (01) ==
LOC: ER 22:06 → INTOOBSV 11-14 02:56 → EH 11-14 02:56 → OBSVTOIN 11-14 02:57 → INTOOBSV 11-14 02:57 → 3W 11-14 03:49
PROVIDERS: ADMIT Internal Medicine; ATTEND Family Medicine
DX: I69.354 Hemiplegia and hemiparesis following cerebral infarction affecting left non-dominant side (principal); I69.322 Dysarthria following cerebral infarction; E10.65 Type 1 diabetes mellitus with hyperglycemia; E10.49 Type 1 diabetes mellitus with other diabetic neurological complication; I10 Essential (primary) hypertension; E78.5 Hyperlipidemia, unspecified; E66.9 Obesity, unspecified; I69.392 Facial weakness following cerebral infarction; L21.9 Seborrheic dermatitis, unspecified; M19.90 Unspecified osteoarthritis, unspecified site; Z79.4 Long term (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 of insulin; Z79.899 Other long term (current) drug therapy; Z87.891 Personal history of nicotine dependence; Z82.3 Family history of stroke; Z82.49 Family history of ischemic heart disease and other diseases of the circulatory system; Z85.41 Personal history of malignant neoplasm of cervix uteri; R29.705 NIHSS score 5
CPT/HCPCS: 93005; 99285; 96360; 36415 ×3; 82962 ×2; 85025 ×2; 85610; 85730; 80048 ×2; 80053; 81001; 84484; 80307; 83036; 80061; 70551; 71045; 70450; 70496; 70498; 93010; 97530; 97110; 97116; 97162; 97165; G0378 ×2; J1644 ×2; J1815 ×5; J3490 ×2; J7040

== ENCOUNTER 2019-12-06 23:29 | Emergency (ER) | payer OTHER ==
--- NOTE | 2019-12-07 | RADIOLOGY REPORT (SQ) ---
EXAM DESCRIPTION: XR CHEST 1 VIEW COMPLETED DATE/TME: 12/06/2019 23:33 CLINICAL HISTORY: s/s stroke COMPARISON: 11/13/2019 FINDINGS: Single frontal view of the chest. Cardiomediastinal silhouette: Normal size and contour. Lungs: Linear left basilar opacities. Low lung volumes. No pneumothorax or large effusion. Bones: No acute osseous abnormality. Upper abdomen: No abnormality identified. IMPRESSION: 1. Linear left basilar opacities may represent subsegmental atelectasis. Low lung volumes.
--- NOTE | 2019-12-07 00:01 | RADIOLOGY REPORT (SQ) ---
CT HEAD WITHOUT IV CONTRAST CLINICAL STATEMENT: slurred speech, L side weakness. TECHNIQUE: Axial CT images from skull base to vertex without IV contrast. This exam was performed according to our departmental dose optimization program, and includes the following measures where applicable: automated exposure control, adjustment of the mAs and/or kVp according to patient size and/or exam, and an iterative reconstruction algorithm. COMPARISON: Unenhanced CT scan of the brain November 13, 2019 FINDINGS: There is no acute intracranial hemorrhage, mass, mass effect or abnormal extra-axial fluid collection. No evidence of an acute territorial infarct is identified. The ventricles are normal. Calvaria: The skull base and calvaria demonstrate no abnormality. Paranasal sinuses: Visualized portions of the orbits and paranasal sinuses are unremarkable. skull base: Unremarkable IMPRESSION: No acute process. No significant interval change.
--- NOTE | 2019-12-07 00:35 | ER Document Report ---
ED General - General Chief Complaint: Weakness Stated Complaint: WEAKNESS Time Seen by Provider: 12/06/19 23:30 Primary Care Provider: KATERYNA GONSALEZ MD [Primary Care Provider] - Follow up as needed Notes: 59-year-old female presents emergency department complaining of new onset of strokelike symptoms at 2245. Patient states she was laying in bed when she got up to go to the bathroom and her left leg gave out on her and she noticed that she was having difficulty speaking. Also complains of a headache and some left arm weakness. Denies any loss of consciousness, denies any trauma. States that this is quite similar to a stroke she had 1 year ago. Patient initially told me that she had previously received TPA but now tells me that she never received TPA. States that her symptoms had completely resolved after her stroke 1 year ago and that the symptoms these evening are brand-new and started at 10:45 PM. confirms this timeline. TRAVEL OUTSIDE OF THE [place] IN LAST 30 DAYS: No - Related Data Allergies/Adverse Reactions: Penicillins Allergy (Unknown, Verified 12/07/19 01:16) cephalexin monohydrate [From Keflex] Allergy (Verified 12/07/19 01:16) ciprofloxacin [From Cipro] Allergy (Verified 12/07/19 01:16) codeine Allergy (Verified 12/07/19 01:16) latex [Latex] Allergy (Verified 12/07/19 01:16) metformin Allergy (Verified 12/07/19 01:16) nitrofurantoin macrocrystalline [From Macrodantin] Allergy (Verified 12/07/19 01:16) penicillin G Allergy (Verified 12/07/19 01:16) Sulfa (Sulfonamide Antibiotics) Allergy (Verified 12/07/19 01:16) tetracycline [Tetracycline] Allergy (Verified 12/07/19 01:16) nitroglycerin [From Nitrostat] Adverse Reaction (Verified 12/07/19 01:16) Past Medical History - General Information source: Patient - Social History Smoking Status: Never Smoker Frequency of alcohol use: None Drug Abuse: None Family History: Arthritis, CVA, DM, Hyperlipidemia, Hypertension, Malignancy, Thyroid Disfunction - Past Medical History Cardiac Medical History: Reports: Hx Hypercholesterolemia, Hx Hypertension Pulmonary Medical History: Reports: Hx Asthma Neurological Medical History: Reports: Hx Cerebrovascular Accident, Hx Migraine Endocrine Medical History: Reports: Hx Diabetes Mellitus Type 1, Hx Diabetes Mellitus Type 2. Denies: Hx Hyperthyroidism, Hx Hypothyroidism Renal/ Medical History: Denies: Hx Peritoneal Dialysis Malignancy Medical History: Reports: Hx Cervical Cancer GI Medical History: Reports: Hx Gastroesophageal Reflux Disease. Denies: Hx Cirrhosis, Hx Hepatitis Musculoskeletal Medical History: Reports Hx Arthritis, Reports Hx Fibromyalgia, Reports Hx Musculoskeletal Deformity, Reports Hx Musculoskeletal Trauma Psychiatric Medical History: Reports: Hx Anxiety, Hx Depression Traumatic Medical History: Reports: Hx Fractures - Facial fractures bilateral toes elbow and left knee Infectious Medical History: Denies: Hx Hepatitis Past Surgical History: Reports: Hx Abdominal Surgery - hernia, Hx Section - 2, Hx Cholecystectomy, Hx Herniorrhaphy, Hx Hysterectomy, Hx Orthopedic Surgery - bilateral toes and elbows left knee twice, Hx Tubal Ligation, Other - Ventral hernia and pseudocyst removal. Denies: Hx Appendectomy - Immunizations Immunizations up to date: Yes Hx Diphtheria, Pertussis, Tetanus Vaccination: Yes Review of Systems - Review of Systems Constitutional: No symptoms reported EENT: No symptoms reported Cardiovascular: No symptoms reported Respiratory: No symptoms reported Musculoskeletal: See HPI Neurological/Psychological: See HPI -: Yes All other systems reviewed and negative Physical Exam - Vital signs Vitals: Temp Pulse Resp BP Pulse Ox 98.4 F 88 16 135/82 H 98 12/06/19 23:29 12/06/19 23:29 12/06/19 23:29 12/06/19 23:29 12/06/19 23:29 Interpretation: Normal - Notes Notes: GENERAL: Alert, interacts well. No acute distress. HEAD: Normocephalic, atraumatic EYES: Pupils equal, round and reactive to light, extraocular movements intact. ENT: Oral mucosa moist, tongue midline. NECK: Full range of motion, supple, trachea midline. LUNGS: Clear to auscultation bilaterally, no wheezes, rales or rhonchi, no respiratory distress. HEART: Regular rate and rhythm, no murmurs, gallops, rubs. ABDOMEN: Soft, nontender, nondistended, bowel sounds present in all 4 quadrants. EXTREMITIES: Moves all 4 extremities spontaneously, no edema, radial and dorsalis pedis pulses 2/4 bilaterally. No cyanosis. NEUROLOGICAL: Alert and oriented x3, normal speech, cranial nerves II through XII grossly intact, biceps and patellar DTRs 2+ bilaterally. There is left- sided weakness. See NIH stroke scale for detailed exam. PSYCH: Normal mood, normal affect. SKIN: Warm, Dry, normal turgor, no rashes or lesions noted. Course - Re-evaluation Re-evalutation: 12/07/19 00:39 Symptoms are not improving, they are all new onset, patient denies that any of these are residual from last year stroke. Discussed with patient and on the phone risks and benefits of receiving TPA including 30% chance of improvement in symptoms and 6 to 8% chance of intracranial hemorrhage with possible risk of from intracranial hemorrhage. Patient would like to receive TPA. Patient will be sent for CTA of the head and neck to make sure there is no large vessel occlusion and then TPA will be given. 12/07/19 00:53 Reviewing old notes it does appear that the patient in mid October is documented to have had 4 out of 5 strength on the left as well as some residual slurred speech. No change in sharp dull differentiation is documented in the note from the last visit. It is documented in several places over the past year that the patient does have residual deficits from her last stroke however she appears to have worsening of her old symptoms on 11/14/2019, TPA was not given as the patient had been having worsening symptoms for 2 days. MRI was negative for acute stroke at that time. Reviewed the PT note from a visit today at 7:36 AM it shows that she was referred by Dr. Hidalgo due to newly onset increase in left-sided weakness. I am very concerned by the difference between what the patient and the family is reporting versus what old medical records say and EMS says. This patient is very likely to have an intracranial hemorrhage if she is given TPA and her symptoms have actually been the same for several days if not several weeks. Patient is being sent for CTA head and neck to look for large vessel occlusion however we will not give TPA until I am able to further track down whether or not these are truly new symptoms. 12/07/19 02:13 Patient now states that her symptoms never truly resolved after her stroke a yea r ago, now admits that she did have worsening symptoms about 2 weeks ago when she was admitted but says that tonight's symptoms are even worse than that. Repeat physical examination shows slight improvement in her ability to lift her left leg, she can only lifted about 2 inches off the bed but she can hold it there for 5 seconds. Discussed with patient the risks of receiving TPA if this is simply a continuation of the stroke that happened 2 weeks ago, patient no longer wishes to receive TPA. 12/07/19 02:17 I did call [facility] to discuss patient with Dr. Hidalgo, who the patient states is her neurologist, but when I called [facility] to discuss this patient I am told that Dr. Hidalgo is actually a rehab doc not a neurologist and they do not have neurology available to discuss this patient. They also state that Dr. Hidalgo does not take call. I am now attempting to call [facility] did discuss the case with their neurologist. 12/07/19 02:30 Discussed with Riri Carmona, the nurse practitioner who works with neurology at [facility], she states that given the fluctuating symptoms they would not treat with TPA either. States that if the patient does not have a neurologist but she is able to walk and is back at her baseline that she could be discharged home to follow-up with her neurologist as an outpatient, otherwise patient would likely benefit from admission for reconditioning. Also recommends checking for infection that may be causing a worsening of her symptoms. I am waiting on her urinalysis. The medical brought the patient to the emergency department did return to the emergency department and gave further report that includes that the patient was able to ambulate 30 feet unassisted without a walker when they picked her up initially. We will attempt to have the patient walk with a walker. 12/07/19 02:53 Patient was able to walk with a walker as per her baseline. Patient will be discharged home to follow-up with [facility] neurology as an outpatient. 12/07/19 03:26 Urinalysis shows trace leukocyte esterase, greater than 500 glucose, less than 1 squamous epithelial cell. This will be sent for culture. Given the patient's extensive history of allergic reactions to medications and the fact that she has having no symptoms of UTI at this time and there is only trace leukocyte esterase we will send this for culture and not treat it at this time. Further discussion with patient reveals that she already sees a neurologist, Dr. Arthur. Patient is recommended to follow-up with Dr. Arthur as an outpatient as when I called and spoke with the transfer line at [facility] I was told that they did not have any neurologists so I will be unable to speak with Dr. Arthur this evening. 12/07/19 03:37 - Vital Signs Vital signs: Temp Pulse Resp BP Pulse Ox 98.4 F 88 21 H 124/76 95 12/06/19 23:29 12/07/19 00:00 12/07/19 02:01 12/07/19 02:00 12/07/19 02:01 - Laboratory Result Diagrams: 12/07/19 00:17 12/07/19 00:17 Laboratory results interpreted by me: 12/07/19 12/07/19 12/07/19 00:17 00:17 00:38 RDW 14.2 H Sodium 136.4 L Chloride 95 L Carbon Dioxide 33 H Glucose 199 H ALT 45 H Urine Glucose (UA) >=500 H Ur Leukocyte Esterase TRACE H - EKG Interpretation by Me Additional EKG results interpreted by me: 12/07/19 00:55 EKG shows sinus rhythm at a rate of 85, normal axis, normal intervals, no ST segment elevations or depressions, there are nonspecific T wave inversions noted in lead III and T wave flattening in aVF, poor R wave progression per my interpretation. Discharge - Discharge Clinical Impression: Left-sided weakness, History of CVA (cerebrovascular accident), Dysarthria Condition: Stable Disposition: HOME, SELF-CARE Additional Instructions: Today your symptoms appear to have been a worsening of your prior stroke. We had an extensive discussion regarding the fact that your stroke symptoms never actually went away after your stroke approximately 1 year ago. We discussed t hat you were able to walk to the ambulance with EMS without any help. I discussed your case with neurology at [facility] after I was unable to get in touch with neurology at [facility] and they recommended that we treat any infection that we find and as long as you are able to walk similar to your baseline you may be discharged home on follow-up with a neurologist as an outpatient. You did not receive TPA (the clot busting drug) as we discussed previously with your because at the time we were discussing this drug I thought your prescription symptoms had completely resolved 1 year ago and just come back at 1045 this evening. Because the symptoms have been waxing and waning for a year if I gave you this drug there is an increased risk that she would bleed into your brain and . This is why you did not receive TPA this evening. You have a trace of bacteria in your urine but you are not having any urinary symptoms. As you are allergic to so many medications I am going to send this to the lab for culture to see what if any bacteria grow out rather than treating it empirically. We will call you if you need antibiotics. Please follow-up with Dr. Arthur as an outpatient. Please discuss with Dr. Arthur the fact that your symptoms tend to come and go although they have never completely resolved. Please discuss with him what symptoms should make you return to the emergency department and what symptoms you should watch at home. Referrals: KATERYNA GONSALEZ MD [Primary Care Provider] - Follow up as needed PANCHITO ARTHUR MD [NO LOCAL MD] - Follow up as needed ED NIH Stroke Scale - NIH Stroke Scale When completed:: Before Alteplase *: 1. NIH scale should be completed with appropriate accompanying assessment tools. *: 2. The NIH should reflect what the patient is capable of doing and should not be coached by the clinician. 1a. Level of Consciousness: 0=Alert;keenly responsive -: 1=Drowsy -: 2=Obtunded -: 3=Coma/unresponsive or reflex to noxious stimuli. 1a. Responses: 0 1b. Orientation Questions: a. What month is it? -: b. How old are you? -: 0=Answers both questions correctly. -: 1=Answers one question correctly or patient is intubated or has orotracheal trauma. -: 2=Answers neither question correctly. 1b. Responses: 0 1c. Response to commands: a. Open and close eyes? -: b. Feather Mixer and release hand? -: Credit is given despite weakness. Demonstration of task is permitted. Substitute command if hands cannot be used. -: 0=Performs both tasks correctly -: 1=Performs one task correctly -: 2=Performs neither task correctly 1c. Responses: 0 2. Gaze: Establish eye contact and instruct patient to "Follow my finger" -: 0=Normal -: 1=Partial gaze palsy. Gaze is abnormal in one or both eyes, but where forced deviation or total gaze paresis is not present. -: 2=Forced deviation or total gaze paresis. 2. Responses: 0 3. Visual Streeter: Sees fingers in all four quadrants. -: 0=No visual loss. -: 1=Partial hemianopsia. -: 2=Complete hemianopsia. -: 3=Bilateral hemianopsia (including Cortical blindness) 3. Responses: 1 - Very slight upper visual field cut in the right eye 4. Facial Movement: Instruct patient to: -: a. Show me your teeth -: b. Raise your eyebrows -: c. Close your eyes -: d. Smile -: 0=Normal symmetrical movement -: 1=Minor paralysis (flattened nasolabial fold, asymmetry on smiling). -: 2=Partial paralysis (total or near total paralysis of lower face). -: 3=Complete paralysis of upper and lower face 4. Responses: 0 5. Motor functions (left arm): Alternate sides and extend each arm with palms down (90 degrees if sitting or 45 degrees for supine). -: 0=No drift;limb holds for full 10 seconds. -: 1=Drift; limb holds but drifts down before full 10 seconds, but does not hit bed. -: 2=Some effort against gravity; limb cannot get to or maintain position. -: 3=No effort against gravity; limb falls. -: 4=No movement. -: UN=Amputation, joint fusion, explain in comments. 5. Responses (left arm): 1 5. Motor Functions (right arm): Alternate sides and extend each arm with palms down (90 degrees if sitting or 45 degrees for supine). -: 0=No drift;limb holds for full 10 seconds. -: 1=Drift; limb holds but drifts down before full 10 seconds, but does not hit bed. -: 2=Some effort against gravity; limb cannot get to or maintain position. -: 3=No effort against gravity; limb falls. -: 4=No movement. -: UN=Amputation, joint fusion, explain in comments. 5. Responses (right arm): 0 6. Motor Functions (left leg): With patient lying supine, alternate sides and e xtend each leg (30 degrees always while supine). -: 0=No drift, leg holds position for full 5 seconds -: 1=Drift; leg falls before full 5 seconds but does not hit bed. -: 2=Some effort against gravity, leg falls to bed but some effort against gravity. -: 3=No effort against gravity, leg falls to bed immediately. -: 4=No movement. -: UN=Amputation, joint fusion; explain in comments. 6. Responses (left leg): 2 6. Motor Functions (right leg): With patient lying supine, alternate sides and extend each leg (30 degrees always while supine). -: 0=No drift, leg holds position for full 5 seconds -: 1=Drift; leg falls before full 5 seconds but does not hit bed. -: 2=Some effort against gravity, leg falls to bed but some effort against gravity. -: 3=No effort against gravity, leg falls to bed immediately. -: 4=No movement. -: UN=Amputation, joint fusion; explain in comments. 6. Responses (right leg): 0 7. Limb Ataxia: With eyes open instruct patient to: -: a. "Touch your finger to your nose". -: b. "Touch your heel to your miguel" -: 0=Absent -: 1=Present in one limb. -: 2=Present in two limbs. -: UN=Amputation or joint fusion; explain in comments. 7. Responses: 0 8. Sensory: Test sensation using pinprick or noxious stimuli. Test as many body parts as possible. -: 0=Normal;no sensory loss -: 1=Mile to moderate sensory loss (patient feels pin prick but is less sharp on affected side). -: 2=Severe or total sensory loss. 8. Responses: 1 - Decreased sensation on the left arm the left leg. 9. Best Language: Instruct patient to: -: a. "Describe what you see in this picture." -: b. "Name the items in this picture." -: c. "Read these sentences." -: 0=No aphasia, normal -: 1=Mild to moderate aphasia. -: 2=Severe aphasia -: 3=Mute, global aphasia, no usable speech or auditory comprehension. 9. Responses: 0 10. Articulation, Dysarthia: Instruct patient to: -: "Read these words" or "Repeat these words" -: 0=Normal -: 1=Mild to moderate; patient may slur some words but can be understood without difficulty. -: 2=Severe; patients speech so slurred as to be unintelligible in the absence of dysphasia. -: UN=Intubated or other physical barrier, explain in comments. 10. Responses: 1 11. Extinction or inattention: 0=No abnormality -: 1= Visual, tactile, auditory, spatial, or personal inattention or extinction to bilateral simulation in one or the sensory modalities. -: 2=Profound an-inattention or an-inattention to more than one modality; does not recognize own hand. 11. Responses: 0 Total Score: 6 ED Alteplase Inc/Exc Criteria - Date/Time patient last known well: Date/Time: 12/06/2019 22:45 - Date/Time patient arrived in ED: _: 12/06/2019 23:30 - Inclusion Criteria: 1: Patient presented to ED within 3 hours of acute ischemic stroke symptom onset? -: No - see course 2: Did baseline CT exclude intracranial hemorrhage and/or other risk factors? -: Yes 3: Is the age of the patient 18 years of age or greater? -: Yes : If any of the above questions are answered "NO" then stop, patient is not a candidate for Alteplase, : If all of the above questions are answered "YES" then continue with Exclusion Criteria. - Exclusion Criteria: 1: Is there evidence of intracranial hemorrhage on baseline CT? -: No 2: Is there suspicion of subarachnoid hemorrhage (even if CT negative)? -: No 3: Is there a history of serious head trauma, recent previous stroke or ME within 3 months? -: No 4: Does the patient have a clinical presentation consistent with ME or post-ME pericarditis? -: No 5: Is there history of intracranial hemorrhage? -: No 6: On repeated measurement is Systolic BP greater than 185mmHg or Diastolic BP greater that 110 mmHg and is aggressive treatment needed to reduce blood pressure to these limits (e.g. constant infusion of an anti-hypertensive)? -: No 7: Did the patient awake with stroke symptoms? -: No 8: Has the patient had a lumbar puncture or an arterial puncture at a non- compressile site within 7 days? -: No 9: With in the last 14 days did the patient have surgery or major trauma? -: No 10: Is the patient or less than 2 weeks? -: No 11: Was there any active bleeding or acute trauma? -: No 12: Does the patient have intracranial neoplasm, arteriovenous malformation or aneurysm? -: No 13: Does the patient have abnormal glucose (less than 50 or greater than 400mg/dl)? Record glucose in Comment. -: No 14: Patient has rapidly improving symptoms at the time Alteplase is to be Administered. -: No 15: Does the patient have any risks for bleeding, including but not limited to: a.: Current use of Coumadin with PT greater than 15 seconds or INR greater than 1.7. b.: Current use of Pradaxa (Dabigatran). c.: Heparin administereed within the past 48 hours and PTT elevated. d.: Platelet count less than 100,000/mm. e.: Major surgery or serious trauma within 14 days. f.: Gastrointestinal or gynecological urinary bleeding within 14 days. g.: Myocardial Infarction (ME) within 3 months. -: No : If the answer to any of the above questions is "YES" then stop, the patient is not a candidate for Alteplase. : If the answer to all of the above questions is "NO" then the patient may be eligible for the Administration of Alteplase. : If the patient is noted to have seizure activity at onset of Stroke symptoms; Consult Neurologist for further evaluation. - The patient is: -: Included and is eligible to receive Alteplase. *Initiate bed placement at higher level of care* --: No Reviewed risks & benefits of thrombolytic therapy: I have reviewed the risks and benefits of thrombolytic therapy with the patient and/or his/her family. Yes -: Excluded and not eligible to receive Alteplase for the above exclusions. -: Excluded and not eligible to receive Alteplase for other reasons (specify in comments): --: Yes - questionable course - Diagnosis of TIA: -: Patient presented with transient symptoms that are now resolved and no other neurologic findings are currently present. List symptoms in comments. -: Patient is NOT a candidate for tPA. -: ____(put name in comment) has been consulted for admission and continued evaluation of risk factor assessment.
[2019-12-07 00:44] LABS: ABSOLUTE EOSINOPHILS # (AUTO) 0.1 10^3/uL (0.0-0.6); ABSOLUTE LYMPHOCYTES (AUTO) 2.3 10^3/uL (0.5-4.7); ABSOLUTE MONOCYTES (AUTO) 0.7 10^3/uL (0.1-1.4); BASOPHILS % (AUTO) 0.6 % (0-2); HEMATOCRIT 42.4 % (36.0-47.0); HEMOGLOBIN 14.4 g/dL (12.0-15.5); LYMPHOCYTES % (AUTO) 31.7 % (13-45); MEAN CORPUSCULAR HEMOGLOBIN 28.2 pg (27.0-33.4); MEAN CORPUSCULAR HGB CONC 34.1 g/dL (32.0-36.0); MEAN CORPUSCULAR VOLUME 83 fl (80-97); PLATELET COUNT 201 10^3/uL (150-450); RED BLOOD COUNT 5.11 10^6/uL (3.72-5.28); RED CELL DISTRIBUTION WIDTH 14.2 % (11.5-14.0); SEGMENTED NEUTROPHILS % (AUTO) 55.7 % (42-78); TOTAL CELLS COUNTED % (AUTO) 100 %; WHITE BLOOD COUNT 7.1 10^3/uL (4.0-10.5)
[2019-12-07 00:50] LABS: PARTIAL THROMBOPLASTIN TIME 30.1 SEC (23.5-35.8); PROTHROMBIN TIME 12.2 SEC (11.4-15.4)
[2019-12-07 00:59] LABS: ALBUMIN 4.9 g/dL (3.5-5.0); ALKALINE PHOSPHATASE 90 U/L (38-126); ANION GAP 8 (5-19); ASPARTATE AMINO TRANSFERASE 33 U/L (14-36); BILIRUBIN,TOTAL 0.5 mg/dL (0.2-1.3); BLOOD UREA NITROGEN 19 mg/dL (7-20); CALCIUM 9.9 mg/dL (8.4-10.2); CARBON DIOXIDE 33 mmol/L (22-30); CHLORIDE 95 mmol/L (98-107); CREATINE KINASE 36 U/L (30-135); GLUCOSE 199 mg/dL (75-110); POTASSIUM 3.6 mmol/L (3.6-5.0)
[2019-12-07 01:11] LABS: CREATINE KINASE MB 1.43 ng/mL (<4.55)
[2019-12-07 01:19] LABS: TROPONIN I < 0.012 ng/mL
--- NOTE | 2019-12-07 01:25 | RADIOLOGY REPORT (SQ) ---
CLINICAL HISTORY: left sided weakness, ?LVO CREAT 0.67 COMPARISON: None. TECHNIQUE: CT NECK ANGIOGRAPHY WITHOUT THEN WITH IV CONTRAST, CT HEAD ANGIOGRAPHY WITHOUT THEN WITH IV CONTRAST on 12/07/2019 12:30 AM CDT This exam was performed according to our departmental dose-optimization program, which includes automated exposure control, adjustment of the mA and/or kV according to patient size and/or use of iterative reconstruction technique. MIP reconstructions were generated. Stenoses are calculated by NASCET criteria. FINDINGS: The visualized aortic arch and origins of the great vessels unremarkable. The common carotid arteries are patent and symmetric bilaterally. There are moderate calcifications at the origin of the right internal carotid artery with mild, less than 50% stenosis of the proximal right ICA. The left ICA is unremarkable. Vertebral arteries are unremarkable without evidence of pseudoaneurysm, hemodynamically significant stenosis, or dissection. Intracranially the cavernous segments of the internal carotid arteries are patent and symmetric bilaterally. Vertebral basilar system within normal limits for age. No aneurysm identified within the [place]. Anterior, middle, and posterior cerebral circulations patent and symmetric bilaterally. Dural sinuses are well opacified and without filling defect. IMPRESSION: Mild right ICA stenosis. Unremarkable CTA of the brain without evidence of hemodynamically significant stenosis, aneurysm or AVM. CAROTID STENOSIS REFERENCE USING NASCET CRITERIA: % ICA stenosis = (1 - narrowest ICA diameter/diameter of distal cervical ICA) x 100. Mild - <50% stenosis. Moderate - 50-69% stenosis. Severe - 70-94% stenosis. Near occlusion - 95-99% stenosis. Occluded - 100% stenosis.
[2019-12-07 03:00] LABS: APPEARANCE,URINE CLEAR; BILIRUBIN,URINE NEGATIVE (NEGATIVE); COLOR,URINE STRAW; GLUCOSE, URINE >=500 mg/dL (NEGATIVE); KETONES,URINE NEGATIVE (NEGATIVE); LEUKOCYTE ESTERASE,URINE TRACE (NEGATIVE); NITRITE,URINE NEGATIVE (NEGATIVE); PROTEIN,URINE NEGATIVE (NEGATIVE); URINE SPECIFIC GRAVITY 1.022; UROBILINOGEN,URINE NEGATIVE mg/dL (<2.0)
[2019-12-07 04:29] VITALS: BP 120/75
--- NOTE | 2019-12-07 07:14 | EKG REPORT ---
SEVERITY:- BORDERLINE ECG - SINUS RHYTHM BORDERLINE R WAVE PROGRESSION, ANTERIOR LEADS BORDERLINE T ABNORMALITIES, INFERIOR LEADS : Confirmed by: Rakesh Hernandez MD 07-Dec-2019 07:13:46
== END 2019-12-07 04:27 | disposition home or self-care (01) ==
LOC: ER 23:29
DX: R53.1 Weakness (principal); R51 Headache; R47.1 Dysarthria and anarthria; E78.00 Pure hypercholesterolemia, unspecified; I10 Essential (primary) hypertension; Z86.73 Personal history of transient ischemic attack (TIA), and cerebral infarction without residual deficits; Z88.0 Allergy status to penicillin; Z88.3 Allergy status to other anti-infective agents; Z91.040 Latex allergy status; E11.9 Type 2 diabetes mellitus without complications
CPT/HCPCS: 36415; 70450; 70496; 70498; 71045; 80053; 81001; 82550; 82553; 82962; 84484; 85025; 85610; 85730; 87086; 87088; 93005; 93010; 99285

== ENCOUNTER 2019-12-09 12:20 | Observation (INO) | payer OTHER ==
--- NOTE | 2019-12-09 12:26 | ER Document Report ---
ED General - General Chief Complaint: S/S of Possible Stroke Stated Complaint: POSSIBLE STROKE Time Seen by Provider: 12/09/19 12:22 Primary Care Provider: KATERYNA GONSALEZ MD [Primary Care Provider] - Follow up as needed Notes: Patient with a prior stroke consisting of aphasia and left-sided weakness presents with same. Happened a few hours ago. She cannot give much of a history and EMS providers are unsure when her last known normal was. She has no other symptoms. Her symptoms are identical but less severe than prior stroke. TRAVEL OUTSIDE OF THE [place] IN LAST 30 DAYS: No - Related Data Allergies/Adverse Reactions: Penicillins Allergy (Unknown, Verified 12/07/19 01:16) cephalexin monohydrate [From Keflex] Allergy (Verified 12/07/19 01:16) ciprofloxacin [From Cipro] Allergy (Verified 12/07/19 01:16) codeine Allergy (Verified 12/07/19 01:16) latex [Latex] Allergy (Verified 12/07/19 01:16) metformin Allergy (Verified 12/07/19 01:16) nitrofurantoin macrocrystalline [From Macrodantin] Allergy (Verified 12/07/19 01:16) penicillin G Allergy (Verified 12/07/19 01:16) Sulfa (Sulfonamide Antibiotics) Allergy (Verified 12/07/19 01:16) tetracycline [Tetracycline] Allergy (Verified 12/07/19 01:16) nitroglycerin [From Nitrostat] Adverse Reaction (Verified 12/07/19 01:16) Past Medical History - Social History Smoking Status: Unknown if Ever Smoked Family History: Arthritis, CVA, DM, Hyperlipidemia, Hypertension, Malignancy, Thyroid Disfunction - Past Medical History Cardiac Medical History: Reports: Hx Hypercholesterolemia, Hx Hypertension Pulmonary Medical History: Reports: Hx Asthma Neurological Medical History: Reports: Hx Cerebrovascular Accident, Hx Migraine Endocrine Medical History: Reports: Hx Diabetes Mellitus Type 1, Hx Diabetes Mellitus Type 2. Denies: Hx Hyperthyroidism, Hx Hypothyroidism Renal/ Medical History: Denies: Hx Peritoneal Dialysis Malignancy Medical History: Reports: Hx Cervical Cancer GI Medical History: Reports: Hx Gastroesophageal Reflux Disease. Denies: Hx Cirrhosis, Hx Hepatitis Musculoskeletal Medical History: Reports Hx Arthritis, Reports Hx Fibromyalgia, Reports Hx Musculoskeletal Deformity, Reports Hx Musculoskeletal Trauma Psychiatric Medical History: Reports: Hx Anxiety, Hx Depression Traumatic Medical History: Reports: Hx Fractures - Facial fractures bilateral toes elbow and left knee Infectious Medical History: Denies: Hx Hepatitis Past Surgical History: Reports: Hx Abdominal Surgery - hernia, Hx Section - 2, Hx Cholecystectomy, Hx Herniorrhaphy, Hx Hysterectomy, Hx Orthopedic Surgery - bilateral toes and elbows left knee twice, Hx Tubal Ligation, Other - Ventral hernia and pseudocyst removal. Denies: Hx Appendectomy - Immunizations Immunizations up to date: Yes Hx Diphtheria, Pertussis, Tetanus Vaccination: Yes Physical Exam - Vital signs Vitals: Pulse Resp BP Pulse Ox 60 18 101/67 97 12/09/19 12:35 12/09/19 12:35 12/09/19 12:35 12/09/19 12:35 Course - Re-evaluation Re-evalutation: 12/09/19 15:45 Given her last normal time being unknown she is not a TPA candidate. Is also unclear but she may be on a blood thinner I will do a recrudescence work-up. We will check a Noncon CT and a full panel of labs CT negative read by radiologist. Labs are negative other than urine which shows infection. This could be causing her recrudescence pain on reassessing her vitals are stable but she still feels like she cannot speak well, is still having some aphasia dysarthria and left-sided weakness. Plan going to admit her for UTI and recrudescence. She has multiple allergies so she was cultured and given aztreonam for her UTI. Stable. Given fluids. Discussed with Jeane. - Vital Signs Vital signs: Temp Pulse Resp BP Pulse Ox 97.7 F 60 17 100/86 H 95 12/09/19 12:42 12/09/19 12:35 12/09/19 15:00 12/09/19 14:46 12/09/19 15:00 - Laboratory Result Diagrams: 12/09/19 12:41 12/09/19 12:41 Laboratory results interpreted by me: 12/09/19 12/09/19 12/09/19 12:35 12:41 12:41 RDW 14.2 H Anion Gap 4 L Glucose 122 H POC Glucose 115 H ALT 36 H Urine Glucose (UA) Leukocyte Esterase Rfl 12/09/19 13:46 RDW Anion Gap Glucose POC Glucose ALT Urine Glucose (UA) >=500 H Leukocyte Esterase Rfl MODERATE H - Diagnostic Test Radiology reviewed: Image reviewed, Reports reviewed Critical Care Note - Critical Care Note Total time excluding time spent on procedures (mins): 32 Comments: The above patient is critically ill. Not including procedures, but including direct re-evaluations, speaking with patient and/or consultants, interpreting results, and documenting, I spent the total amount of minute listed listed above on critical care time Discharge - Discharge Clinical Impression: Pyelonephritis, Left-sided weakness Condition: Fair Disposition: ADMITTED INPATIENT Admitting Provider: Jeane (Hospitalist) Unit Admitted: Medical Floor Referrals: KATERYNA GONSALEZ MD [Primary Care Provider] - Follow up as needed
--- NOTE | 2019-12-09 12:44 | RADIOLOGY REPORT (SQ) ---
EXAM DESCRIPTION: CT HEAD WITHOUT IMAGES COMPLETED DATE/TIME: 12/09/2019 12:28 pm REASON FOR STUDY: stroke s/s COMPARISON: 12/07/2019, 12/06/2019, 11/14/2019, 11/13/2019, 09/21/2019, 07/02/2019 TECHNIQUE: Axial images acquired through the brain without intravenous contrast. Images reviewed wi th bone, brain and subdural windows. Additional sagittal and coronal reconstructions were generated. Images stored on PACS. All CT scanners at this facility use dose modulation, iterative reconstruction, and/or weight based d osing when appropriate to reduce radiation dose to as low as reasonably achievable (ALARA). [facility]: Dose Right [facility]: CareDose [facility]: Dose Right [facility]: Teradose 4D [facility]: SilMach RADIATION DOSE: mGy. LIMITATIONS: None. FINDINGS: VENTRICLES: Normal size and contour. CEREBRUM: No masses. No hemorrhage. No midline shift. No evidence for acute infarction. Subtle foc i of hypoattenuation within the bilateral subinsular white matter is unchanged from that seen on comp arison imaging. CEREBELLUM: No masses. No hemorrhage. No alteration of density. No evidence for acute infarction. EXTRAAXIAL SPACES: No fluid collections. No masses. ORBITS AND GLOBE: No intra- or extraconal masses. Normal contour of globe without masses. CALVARIUM: No fracture. PARANASAL SINUSES: No fluid or mucosal thickening. SOFT TISSUES: No mass or hematoma. OTHER: No other significant finding. IMPRESSION: No evidence of acute or subacute large territory ischemic injury. Stable CT appearance of the brain. EVIDENCE OF ACUTE STROKE: NO. COMMENT: Pertinent positive or negative findings of the imaging study reported as a CRITICAL EXAM t o Dr Fisher at12:36 on 12/09/2019. Category of Critical Exam: Stroke code Quality ID # [id number]: Final reports with documentation of one or more dose reduction techniques (e.g., Au tomated exposure control, adjustment of the mA and/or kV according to patient size, use of iterative reconstruction technique) TECHNICAL DOCUMENTATION: JOB ID: [id number] 2010 [employer]- All Rights Reserved Reading location - IP/workstation name: [email or web address]
--- NOTE | 2019-12-09 12:46 | RADIOLOGY REPORT (SQ) ---
EXAM DESCRIPTION: CHEST SINGLE VIEW IMAGES COMPLETED DATE/TIME: 12/09/2019 12:31 pm REASON FOR STUDY: stroke s/s COMPARISON: 12/06/2019 EXAM PARAMETERS: NUMBER OF VIEWS: One view. TECHNIQUE: Single frontal radiographic view of the chest acquired. RADIATION DOSE: NA LIMITATIONS: None. FINDINGS: LUNGS AND PLEURA: Low lung volumes results in bronchovascular crowding. No focal consolid ation, pleural effusion, or pneumothorax. MEDIASTINUM AND HILAR STRUCTURES: No masses. Contour normal. HEART AND VASCULAR STRUCTURES: Heart normal in size. Normal vasculature. BONES: No acute findings. HARDWARE: Loop recorder appears grossly stable. OTHER: No other significant finding. IMPRESSION: No evidence of acute cardiopulmonary abnormality. TECHNICAL DOCUMENTATION: JOB ID: [id number] 2010 [employer]- All Rights Reserved Reading location - IP/workstation name: [email or web address]
[2019-12-09 12:51] LABS: ABSOLUTE EOSINOPHILS # (AUTO) 0.2 10^3/uL (0.0-0.6); ABSOLUTE LYMPHOCYTES (AUTO) 1.9 10^3/uL (0.5-4.7); ABSOLUTE MONOCYTES (AUTO) 0.5 10^3/uL (0.1-1.4); ABSOLUTE NEUT (AUTO) 3.3 10^3/uL (1.7-8.2); BASOPHILS % (AUTO) 0.8 % (0-2); EOSINOPHILS % (AUTO) 2.9 % (0-6); HEMATOCRIT 39.6 % (36.0-47.0); HEMOGLOBIN 13.5 g/dL (12.0-15.5); LYMPHOCYTES % (AUTO) 31.8 % (13-45); MEAN CORPUSCULAR HEMOGLOBIN 28.2 pg (27.0-33.4); MEAN CORPUSCULAR HGB CONC 34.2 g/dL (32.0-36.0); MEAN CORPUSCULAR VOLUME 83 fl (80-97); MONOCYTES % (AUTO) 8.5 % (3-13); PLATELET COUNT 187 10^3/uL (150-450); RED BLOOD COUNT 4.79 10^6/uL (3.72-5.28); RED CELL DISTRIBUTION WIDTH 14.2 % (11.5-14.0); TOTAL CELLS COUNTED % (AUTO) 100 %; WHITE BLOOD COUNT 5.9 10^3/uL (4.0-10.5)
[2019-12-09 12:55] LABS: PARTIAL THROMBOPLASTIN TIME 28.9 SEC (23.5-35.8)
--- NOTE | 2019-12-09 12:56 | EKG REPORT ---
SEVERITY:- ABNORMAL ECG - SINUS RHYTHM PROBABLE INFERIOR INFARCT, OLD : Confirmed by: Rakesh Hernandez MD 09-Dec-2019 12:55:57
[2019-12-09 12:58] LABS: INTERNATIONAL RATION (INR) 0.92; PROTHROMBIN TIME 12.3 SEC (11.4-15.4)
[2019-12-09 13:12] LABS: ALBUMIN 4.1 g/dL (3.5-5.0); ALKALINE PHOSPHATASE 76 U/L (38-126); ASPARTATE AMINO TRANSFERASE 22 U/L (14-36); BILIRUBIN,TOTAL 0.4 mg/dL (0.2-1.3); BLOOD UREA NITROGEN 17 mg/dL (7-20); CALCIUM 9.1 mg/dL (8.4-10.2); CARBON DIOXIDE 30 mmol/L (22-30); CHLORIDE 104 mmol/L (98-107); CREATINE KINASE 31 U/L (30-135); GLUCOSE 122 mg/dL (75-110)
[2019-12-09 13:15] LABS: ANION GAP 4 (5-19)
[2019-12-09 13:24] LABS: CREATINE KINASE MB 1.24 ng/mL (<4.55)
[2019-12-09 13:25] LABS: TROPONIN I < 0.012 ng/mL
[2019-12-09 14:39] LABS: APPEARANCE,URINE CLEAR; BILIRUBIN,URINE NEGATIVE (NEGATIVE); COLOR,URINE STRAW; GLUCOSE, URINE >=500 mg/dL (NEGATIVE); KETONES,URINE NEGATIVE (NEGATIVE); PROTEIN,URINE NEGATIVE (NEGATIVE); URINE SPECIFIC GRAVITY 1.022; UROBILINOGEN,URINE NEGATIVE mg/dL (<2.0)
[2019-12-09] MEDS ORDERED: AZTREONAM INJ 1 GM VIAL IV ONE (14:42)
[2019-12-09] MEDS ORDERED: ONDANSETRON HCL INJ/PF 4 MG/2 ML SDV IV ONE ×2 (15:31→15:42)
[2019-12-09] MEDS ORDERED: NORMAL SALINE 1000 ML 1,000 ML IV ONE (15:45)
[2019-12-09] MEDS ORDERED: KETOROLAC TROMETHAMINE INJ/PF 30 MG/1 ML SDV IV PRN (16:21)
[2019-12-09] MEDS ORDERED: ACETAMINOPHEN 325 MG TABLET PO PRN (16:22)
[2019-12-09] MEDS ORDERED: MAGNESIUM HYDROXIDE SUSP 30 ML UDCUP PO PRN (16:23)
[2019-12-09] MEDS ORDERED: ONDANSETRON HCL INJ/PF 4 MG/2 ML SDV IV PRN (16:23)
[2019-12-09] MEDS ORDERED: GLUCAGON,HUMAN RECOMB 1 MG INJ IM PRN (16:31)
[2019-12-09] MEDS ORDERED: DEXTROSE 40% GEL 15 GM TUBE PO PRN ×2 (16:31)
[2019-12-09] MEDS ORDERED: DEXTROSE 50%-WATER 25 GM/50 ML DISP.SYRIN IV PRN ×2 (16:31)
--- NOTE | 2019-12-09 16:35 | PDOC H&P ---
History of Present Illness Admission Date/PCP: 12/09/19 16:16 KATERYNA GONSALEZ MD Patient complains of: slurred speech, light headed and dizzy History of Present Illness: ORLY OSEI is a 59 year old female Past Medical History Cardiac Medical History: Reports: Hyperlipidema, Hypertension, Other - Right carotid atherosclerosis less than 50% Pulmonary Medical History: Reports: Asthma Neurological Medical History: Reports: Ischemic CVA, Migraine, Other - Dysar thria as late effect of stroke. Left foot drop. Gait disorder. Endocrine Medical History: Reports: Diabetes Mellitus Type 2, Other - Diabetic neuropathy Denies: Hyperthyroidism, Hypothyroidism Renal/ Medical History: Denies: Chronic Kidney Disease Malignancy Medical History: Reports: Cervical Cancer GI Medical History: Reports: Gastroesophageal Reflux Disease, Other - Gastroparesis Denies: Cirrhosis, Hepatitis Musculoskeltal Medical History: Reports: Arthritis, Fibromyalgia Psychiatric Medical History: Reports: Depression, Tobacco Dependency Past Surgical History Past Surgical History: Reports: Section - 2, Cholecystectomy, Herniorrhaphy, Hysterectomy, Orthopedic Surgery - bilateral toes and elbows left knee twice, Tubal Ligation, Other - Ventral hernia and pseudocyst removal Denies: Appendectomy Social History Information Source: Patient, [facility] Records Lives with: Spouse/Significant other Smoking Status: Former Smoker - No cigarettes for 6 years Electronic Cigarette use?: No Frequency of Alcohol Use: None - No alcohol for 10 years Hx Recreational Drug Use: No Drugs: None Hx Prescription Drug Abuse: No - Advance Directive Resuscitation Status: Full Code Surrogate healthcare decision maker:: Family History Family History: Arthritis, CVA, DM, Hyperlipidemia, Hypertension, Malignancy, Thyroid Disfunction Parental Family History Reviewed: Yes Children Family History Reviewed: Yes Sibling(s) Family History Reviewed.: Yes Medication/Allergy Home Medications: Meclizine HCl [Antivert 25 mg Tablet] 12.5 mg PO TIDP PRN 05/04/19 Metoprolol Succinate [Toprol Xl 25 mg Tab.sr] 25 mg PO DAILY 05/04/19 [place]-3 Fatty Acids/Fish Oil [[place] 3 Fish Oil Softgel] 1 each PO DAILY 05/04/19 Quetiapine Fumarate [Seroquel 100 mg Tablet] 100 mg PO QHS 05/04/19 Tumeric 500 mg PO DAILY 05/04/19 Insulin Degludec [Tresiba Flextouch U-100] 30 unit SQ BID 07/02/19 Dapagliflozin Propanediol [Farxiga] 10 mg PO DAILY 08/04/19 Amlodipine Besylate [Norvasc 2.5 mg Tablet] 2.5 mg PO DAILY 11/14/19 Atorvastatin Calcium [Lipitor 40 mg Tablet] 40 mg PO QHS 11/14/19 Docusate Sodium [Colace 100 mg Capsule] 300 mg PO DAILY 11/14/19 Loperamide HCl [Imodium 2 mg Capsule] 4 mg PO PRN PRN 11/14/19 Pantoprazole Sodium [Protonix [address] Tablet] 20 mg PO QAM 11/14/19 Pregabalin 150 mg PO Q12 11/14/19 Clopidogrel Bisulfate [Plavix 75 mg Tablet] 75 mg PO DAILY #30 tablet 11/15/19 Insulin Aspart [Novolog Flexpen] See Protocol SUBCUT AC #1 pen 11/15/19 Allergies/Adverse Reactions: Penicillins Allergy (Unknown, Verified 12/09/19 19:24) cephalexin monohydrate [From Keflex] Allergy (Verified 12/09/19 19:24) ciprofloxacin [From Cipro] Allergy (Verified 12/09/19 19:24) codeine Allergy (Verified 12/09/19 19:24) latex [Latex] Allergy (Verified 12/09/19 19:24) metformin Allergy (Verified 12/09/19 19:24) nitrofurantoin macrocrystalline [From Macrodantin] Allergy (Verified 12/09/19 19:24) penicillin G Allergy (Verified 12/09/19 19:24) Sulfa (Sulfonamide Antibiotics) Allergy (Verified 12/09/19 19:24) tetracycline [Tetracycline] Allergy (Verified 12/09/19 19:24) nitroglycerin [From Nitrostat] Adverse Reaction (Verified 12/09/19 19:24) Review of Systems All systems: reviewed and no additional remarkable complaints except as stated Gastrointestinal: PRESENT: abdominal pain, heartburn, other - Gastroparesis Musculoskeletal: PRESENT: other - Left foot drop Neurological: PRESENT: abnormal gait, abnormal speech, numbness, tingling - Diabetic neuropathy Psychiatric: PRESENT: depression Physical Exam Vital Signs: Temp Pulse Resp BP Pulse Ox 97.7 F 60 18 110/70 95 12/09/19 12:42 12/09/19 12:35 12/09/19 15:46 12/09/19 15:46 12/09/19 15:46 Intake & Output 12/08/19 12/09/19 12/10/19 06:59 06:59 06:59 Weight 90.7 kg General appearance: PRESENT: cooperative, mild distress, well-developed Head exam: PRESENT: atraumatic, normocephalic Eye exam: PRESENT: conjunctiva pink, EOMI. ABSENT: scleral icterus Ear exam: PRESENT: normal external ear exam. ABSENT: bleeding, drainage Mouth exam: PRESENT: moist, tongue midline Neck exam: ABSENT: carotid bruit, JVD, lymphadenopathy Respiratory exam: PRESENT: clear to auscultation gerardo, symmetrical, unlabored. ABSENT: accessory muscle use, prolonged expiratory phas, rales, rhonchi, tachypnea, wheezes Cardiovascular exam: PRESENT: RRR, +S1, +S2. ABSENT: diastolic murmur, irregular rhythm, systolic murmur Pulses: PRESENT: normal radial pulses, +1 pedal pulses bilateral GI/Abdominal exam: PRESENT: normal bowel sounds, soft. ABSENT: distended, gu arding, tenderness Rectal exam: PRESENT: deferred Gentrourinary exam: ABSENT: indwelling catheter Extremities exam: PRESENT: other - Left PFO in place. ABSENT: pedal edema Musculoskeletal exam: PRESENT: ambulatory - Uses a walker Neurological exam: PRESENT: alert, awake, oriented to person, oriented to place, oriented to time, oriented to situation, other - Dysarthria Psychiatric exam: PRESENT: flat affect. ABSENT: agitated, anxious Focused psych exam: ABSENT: delusional, paranoid, restlessness Skin exam: PRESENT: dry, normal color, warm. ABSENT: rash Results Laboratory Results: 12/09/19 12:41 12/09/19 12:41 12/09/19 12/09/19 12/09/19 12:41 12:41 13:46 WBC 5.9 RBC 4.79 Hgb 13.5 Hct 39.6 MCV 83 MCH 28.2 MCHC 34.2 RDW 14.2 H Plt Count 187 Seg Neutrophils % 56.0 Sodium 138.3 Potassium 4.0 Chloride 104 Carbon Dioxide 30 Anion Gap 4 L BUN 17 Creatinine 0.54 Est GFR ( Amer) > 60 Glucose 122 H Calcium 9.1 Total Bilirubin 0.4 AST 22 Alkaline Phosphatase 76 Total Protein 7.0 Albumin 4.1 Urine Color STRAW Urine Appearance CLEAR Urine pH 5.0 Ur Specific [place] 1.022 Urine Protein NEGATIVE Urine Glucose (UA) >=500 H Urine Ketones NEGATIVE Urine Blood NEGATIVE Urine RBC (Auto) 1 12/09/19 12/09/19 12:41 12:41 Creatine Kinase 31 CK-MB (CK-2) 1.24 Troponin I < 0.012 Impressions: Chest X-Ray 12/09/19 12:24 IMPRESSION: No evidence of acute cardiopulmonary abnormality. Head CT 12/09/19 12:24 IMPRESSION: No evidence of acute or subacute large territory ischemic injury. Stable CT appearance of the brain. EVIDENCE OF ACUTE STROKE: NO. Assessment and Plan - Diagnosis (1) TIA (transient ischemic attack) Qualifiers: Transient cerebral ischemia type: unspecified Qualified Code(s): G45.9 - Transient cerebral ischemic attack, unspecified Is this a current diagnosis for this admission?: Yes Plan: 12/09/2019 History of stroke in 2019. The patient was in the emergency department on December 06. At that time MRI of the head was negative. CT angiogram of the head and neck showed right carotid atherosclerosis less than 50% stenosis. Symptoms seem similar today. Patient feels that she still has more dysarthria than usual and her gait was more disordered than usual. It is more subjective therefore difficult to truly assess. She clearly feels that she is still symptomatic. We will continue her Plavix at this time. She is also on statin therapy and antihypertensive therapy. I have asked physical therapy to assess the patient. (2) Urinary tract infection Qualifiers: Urinary tract infection type: site unspecified Hematuria presence: without hematuria Qualified Code(s): N39.0 - Urinary tract infection, site not specified Is this a current diagnosis for this admission?: Yes Plan: 12/09/2019 The patient did have a urinalysis specimen. There was moderate leukocyte Estrace and 11 white blood cells per high-power field. A urine culture is pending. She was placed on aztreonam due to her markedly extensive list of antibiotic allergies. If the urine culture is negative I will discontinue the antibiotics. (3) Dysarthria as late effect of cerebrovascular accident (CVA) Is this a current diagnosis for this admission?: Yes Plan: 12/09/2019 Patient feels she is still not back to baseline. We will continue her current medication regimen. If she does not feel improved tomorrow consider speech therapy consult. She denies any dysphagia and is on regular diet with thin liquids. (4) Multifactorial gait disorder Is this a current diagnosis for this admission?: Yes Plan: 12/09/2019 Likely combination of her diabetic neuropathy and old stroke. She does wear a left PFO for foot drop. She does walk with a walker. I have asked physical therapy to assess her. (5) Hyperglycemia due to type 2 diabetes mellitus Qualifiers: Diabetes mellitus terminal carman insulin use: with terminal carman use Qualified Code(s): E11.65 - Type 2 diabetes mellitus with hyperglycemia; Z79.4 - long term care administrator (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 of insulin Is this a current diagnosis for this admission?: Yes Plan: 12/09/2019 We will utilize formulary medications. Lantus will be given twice daily and she will be having Accu-Cheks at mealtime and bedtime with sliding scale coverage. She will be on a diabetic/cardiac diet (6) Diabetic gastroparesis associated with type 2 diabetes mellitus Is this a current diagnosis for this admission?: Yes Plan: 12/09/2019 Consider trial of metoclopramide if symptomatic (7) Diabetic neuropathy associated with type 2 diabetes mellitus Qualifiers: Diabetes mellitus complication detail: diabetic polyneuropathy Qualified Code(s): E11.42 - Type 2 diabetes mellitus with diabetic polyneuropathy Is this a current diagnosis for this admission?: Yes Plan: 12/09/2019 Continue Lyrica (8) Left-sided weakness Is this a current diagnosis for this admission?: Yes Plan: 12/09/2019 From stroke in 2019. She uses a walker at home. And has physical therapy to evaluate her during this admission. (9) HTN (hypertension) Qualifiers: Hypertension type: essential hypertension Qualified Code(s): I10 - Essential (primary) hypertension Is this a current diagnosis for this admission?: Yes Plan: 12/09/2019 Excellent blood pressure control. Continue current regimen. (10) Carotid atherosclerosis Qualifiers: Laterality: right Qualified Code(s): I65.21 - Occlusion and stenosis of right carotid artery Is this a current diagnosis for this admission?: Yes Plan: 12/09/2019 Less than 50%. Continue Plavix. (11) Depression Qualifiers: Depression Type: unspecified Is this a current diagnosis for this admission?: Yes Plan: 12/09/2019 Continue Seroquel. (12) HLD (hyperlipidemia) Qualifiers: Hyperlipidemia type: unspecified Qualified Code(s): E78.5 - Hyperlipidemia, unspecified Is this a current diagnosis for this admission?: Yes Plan: 12/09/2019 Continue statin therapy - Time Time Spent with patient: 35 or more minutes Medications reviewed and adjusted accordingly: Yes Anticipated discharge: Home with Homehealth - Inpatient Certification Based on my medical assessment, after consideration of the patient's comorbidities, presenting symptoms, or acuity I expect that the services needed warrant INPATIENT care.: Yes I certify that my determination is in accordance with my understanding of Medicare's requirements for reasonable and necessary INPATIENT services [42 CFR 412.3e].: Yes Medical Necessity: Need Close Monitoring Due to Risk of Patient Decompensation, Need For IV Fluids, Need for Pain Control, Need for IV Antibiotics Post Hospital Care: D/C Communications Representative Documentation
[2019-12-09] MEDS: TRAMADOL HCL 50 MG TABLET PO PRN ×2 (17:03→22:44)
[2019-12-09] MEDS: NORMAL SALINE 1000 ML 1,000 ML IV PRN ×2 (19:08→22:48)
[2019-12-09] MEDS ORDERED: PREGABALIN 100 MG CAPSULE PO SCH (22:00)
[2019-12-09] MEDS ORDERED: ATORVASTATIN CALCIUM 40 MG TABLET PO SCH (22:00)
[2019-12-09] MEDS ORDERED: QUETIAPINE FUMARATE 100 MG TABLET PO SCH (22:00)
[2019-12-09] MEDS ORDERED: AZTREONAM INJ 1 GM VIAL ONE (22:42)
[2019-12-09] MEDS: HEPARIN SOD (PORCINE) 5,000 UNIT/ML 1 ML VIAL SUBCUT SCH (22:44)
[2019-12-09] MEDS: INSULIN LISPRO 100 UNIT/ML 3 ML VIAL SUBCUT SCH (22:48)
[2019-12-09] MEDS: INSULIN GLARGINE,HUM.REC.ANLOG 1,000 UNIT/10 ML VIAL SUBCUT SCH (22:49)
[2019-12-09] MEDS: AZTREONAM 1 GM in DEXTROSE 5%-WATER 50 ML IV SCH (23:08)
[2019-12-10 05:48] LABS: ABSOLUTE EOSINOPHILS # (AUTO) 0.2 10^3/uL (0.0-0.6); ABSOLUTE LYMPHOCYTES (AUTO) 2.1 10^3/uL (0.5-4.7); ABSOLUTE MONOCYTES (AUTO) 0.4 10^3/uL (0.1-1.4); ABSOLUTE NEUT (AUTO) 3.5 10^3/uL (1.7-8.2); BASOPHILS % (AUTO) 0.5 % (0-2); HEMATOCRIT 36.8 % (36.0-47.0); HEMOGLOBIN 12.3 g/dL (12.0-15.5); LYMPHOCYTES % (AUTO) 33.6 % (13-45); MEAN CORPUSCULAR HEMOGLOBIN 27.7 pg (27.0-33.4); MEAN CORPUSCULAR HGB CONC 33.3 g/dL (32.0-36.0); MEAN CORPUSCULAR VOLUME 83 fl (80-97); MONOCYTES % (AUTO) 7.1 % (3-13); PLATELET COUNT 170 10^3/uL (150-450); RED BLOOD COUNT 4.43 10^6/uL (3.72-5.28); RED CELL DISTRIBUTION WIDTH 14.4 % (11.5-14.0); SEGMENTED NEUTROPHILS % (AUTO) 55.8 % (42-78); TOTAL CELLS COUNTED % (AUTO) 100 %; WHITE BLOOD COUNT 6.3 10^3/uL (4.0-10.5)
[2019-12-10] MEDS: AZTREONAM 1 GM in DEXTROSE 5%-WATER 50 ML IV SCH ×2 (05:55→13:40)
[2019-12-10] MEDS: HEPARIN SOD (PORCINE) 5,000 UNIT/ML 1 ML VIAL SUBCUT SCH ×2 (05:55→13:39)
[2019-12-10 06:05] LABS: BLOOD UREA NITROGEN 14 mg/dL (7-20); CALCIUM 8.6 mg/dL (8.4-10.2); CHLORIDE 104 mmol/L (98-107); GLUCOSE 87 mg/dL (75-110); POTASSIUM 3.9 mmol/L (3.6-5.0)
[2019-12-10 06:10] LABS: ANION GAP 5 (5-19); CARBON DIOXIDE 28 mmol/L (22-30)
[2019-12-10] MEDS ORDERED: PANTOPRAZOLE SODIUM 20 MG TABLET.DR PO SCH (08:00)
[2019-12-10] MEDS: INSULIN LISPRO 100 UNIT/ML 3 ML VIAL SUBCUT SCH ×3 (09:59→16:49)
[2019-12-10] MEDS ORDERED: CLOPIDOGREL BISULFATE 75 MG TABLET PO SCH (10:00)
[2019-12-10] MEDS ORDERED: AMLODIPINE BESYLATE 2.5 MG TABLET PO SCH (10:00)
[2019-12-10] MEDS ORDERED: PREGABALIN 75 MG CAPSULE PO SCH (10:00)
[2019-12-10] MEDS ORDERED: DOCUSATE SODIUM 100 MG CAPSULE PO SCH (10:00)
[2019-12-10] MEDS ORDERED: METOPROLOL SUCCINATE 25 MG TAB.SR.24H PO SCH (10:00)
[2019-12-10] MEDS: INSULIN GLARGINE,HUM.REC.ANLOG 1,000 UNIT/10 ML VIAL SUBCUT SCH (10:23)
[2019-12-10] MEDS: TRAMADOL HCL 50 MG TABLET PO PRN ×2 (10:31→16:51)
--- NOTE | 2019-12-10 17:51 | PDOC DISCHARGE SUMMARY ---
Impression - Admit/DC Date/PCP Admission Date/Primary Care Provider: 12/09/19 16:16 KATERYNA GONSALEZ MD Discharge Date: 12/10/19 - Discharge Diagnosis (1) Dizziness Is this a current diagnosis for this admission?: Yes (2) Urinary tract infection Is this a current diagnosis for this admission?: Yes (3) Carotid atherosclerosis Is this a current diagnosis for this admission?: Yes (4) Diabetic gastroparesis associated with type 2 diabetes mellitus Is this a current diagnosis for this admission?: Yes (5) Diabetic neuropathy associated with type 2 diabetes mellitus Is this a current diagnosis for this admission?: Yes (6) Dysarthria as late effect of cerebrovascular accident (CVA) Is this a current diagnosis for this admission?: Yes (7) Hyperglycemia due to type 2 diabetes mellitus Is this a current diagnosis for this admission?: Yes (8) Left-sided weakness Is this a current diagnosis for this admission?: Yes (9) Multifactorial gait disorder Is this a current diagnosis for this admission?: Yes (10) Depression Is this a current diagnosis for this admission?: Yes (11) Hypertension Is this a current diagnosis for this admission?: Yes (12) HLD (hyperlipidemia) Is this a current diagnosis for this admission?: Yes - Additional Information Resuscitation Status: Full Code Discharge Diet: As Tolerated Discharge Activity: Activity As Tolerated Referrals: KATERYNA GONSALEZ MD [Primary Care Provider] - Follow up as needed Prescriptions: Atorvastatin Calcium [Lipitor 40 mg Tablet] 80 mg PO QHS 30 Days Aspirin [Lo-Dose Aspirin EC] 81 mg PO DAILY #30 tablet. Naproxen [Naprosyn 250 mg Tablet] 250 mg PO BIDP PRN #20 tablet PRN Reason: Ondansetron [Zofran Odt 4 mg Tablet] 1 - 2 tab PO Q4HP PRN #15 tab.rapdis PRN Reason: Home Medications: Meclizine HCl [Antivert 25 mg Tablet] 12.5 mg PO TIDP PRN 05/04/19 Metoprolol Succinate [Toprol Xl 25 mg Tab.sr] 25 mg PO DAILY 05/04/19 [place]-3 Fatty Acids/Fish Oil [[place] 3 Fish Oil Softgel] 1 each PO DAILY 05/04/19 Quetiapine Fumarate [Seroquel 100 mg Tablet] 100 mg PO QHS 05/04/19 Tumeric 500 mg PO DAILY 05/04/19 Insulin Degludec [Tresiba Flextouch U-100] 30 unit SQ BID 07/02/19 Dapagliflozin Propanediol [Farxiga] 10 mg PO DAILY 08/04/19 Amlodipine Besylate [Norvasc 2.5 mg Tablet] 2.5 mg PO DAILY 11/14/19 Docusate Sodium [Colace 100 mg Capsule] 300 mg PO DAILY 11/14/19 Loperamide HCl [Imodium 2 mg Capsule] 4 mg PO PRN PRN 11/14/19 Pantoprazole Sodium [Protonix [address] Tablet] 20 mg PO QAM 11/14/19 Pregabalin 150 mg PO Q12 11/14/19 Clopidogrel Bisulfate [Plavix 75 mg Tablet] 75 mg PO DAILY #30 tablet 11/15/19 Insulin Aspart [Novolog Flexpen] See Protocol SUBCUT AC #1 pen 11/15/19 Aspirin [Lo-Dose Aspirin EC] 81 mg PO DAILY #30 tablet.dr 12/10/19 Atorvastatin Calcium [Lipitor 40 mg Tablet] 80 mg PO QHS 30 Days 12/10/19 Naproxen [Naprosyn 250 mg Tablet] 250 mg PO BIDP PRN #20 tablet 12/10/19 Ondansetron [Zofran Odt 4 mg Tablet] 1 - 2 tab PO Q4HP PRN #15 tab.rapdis 12/10/19 History of Present Illiness History of Present Illness: ORLY OSEI is a 59 year old female presented with Worsening of her dizziness as well as worsening left-sided weakness. Of note this will symptoms from her prior stroke as well. Hospital Course Hospital Course: Patient was admitted to the hospital for evaluation of increased dizziness and some reported slurred speech and mild worsening of her left-sided weakness. Urinalysis was also positive as well as positive urinary cultures. All patient's symptoms seem to correspond with prior symptoms that she had been experiencing from a prior stroke. Of note, last MRI she got at time of her prior CVA actually did not show any stroke but patient does have deficits and as such she was discharged with appropriate therapy for CVA. Head CT scan on this admission was negative. MRI of the brain done last month was normal. Head and neck CT was done on this admission and showed mild carotid stenosis in the right ICA but less than 50%. I will go ahead and treat empirically and put patient on aspirin for 30 days, continue Plavix and increase patient's atorvastatin to 80 mg nightly. I have recommended that patient see a neurologist for continued management of her dizziness for which she has already been taking meclizine at home but has not helped so much in this new situation. EKG showed no A. fib. Patient has been evaluated and cleared by physical therapy and will be set up with home PT and OT. It is also possible that her her current UTI may simply be exacerbating the symptoms of her previous stroke and as such as manifest as increased dizziness slurring and weakness. Given patient's extensive antibiotic allergy, I have treated patient with 1 dose of 3 g of fosfomycin. Patient is being discharged in stable conditions. Physical Exam Vital Signs: Temp Pulse Resp BP Pulse Ox 97.4 F 64 16 113/69 98 12/10/19 15:48 12/10/19 15:48 12/10/19 15:48 12/10/19 15:48 12/10/19 15:48 Intake & Output 12/09/19 12/10/19 12/11/19 06:59 06:59 06:59 Intake Total 1718 656 Balance 1718 656 Weight 82.3 kg General appearance: PRESENT: no acute distress, cooperative Neck exam: ABSENT: JVD Respiratory exam: PRESENT: unlabored Cardiovascular exam: PRESENT: RRR, +S1, +S2. ABSENT: irregular rhythm GI/Abdominal exam: PRESENT: soft. ABSENT: tenderness Neurological exam: PRESENT: alert, awake, oriented to person, oriented to place, oriented to time, oriented to situation, motor sensory deficit - 4/5 LUE and LLE. 5/5 in other extremities. ABSENT: CN II-XII grossly intact - Normal ocular movements. Does have some dysdiadochokinesia of her left hand. Results Laboratory Results: WBC 6.3 10^3/uL (4.0-10.5) 12/10/19 04:49 RBC 4.43 10^6/uL (3.72-5.28) 12/10/19 04:49 Hgb 12.3 g/dL (12.0-15.5) 12/10/19 04:49 Hct 36.8 % (36.0-47.0) 12/10/19 04:49 MCV 83 fl (80-97) 12/10/19 04:49 MCH 27.7 pg (27.0-33.4) 12/10/19 04:49 MCHC 33.3 g/dL (32.0-36.0) 12/10/19 04:49 RDW 14.4 % (11.5-14.0) H 12/10/19 04:49 Plt Count 170 10^3/uL (150-450) 12/10/19 04:49 Lymph % (Auto) 33.6 % (13-45) 12/10/19 04:49 [place] % (Auto) 7.1 % (3-13) 12/10/19 04:49 Eos % (Auto) 3.0 % (0-6) 12/10/19 04:49 Baso % (Auto) 0.5 % (0-2) 12/10/19 04:49 Absolute Neuts (auto) 3.5 10^3/uL (1.7-8.2) 12/10/19 04:49 Absolute Lymphs (auto) 2.1 10^3/uL (0.5-4.7) 12/10/19 04:49 Absolute Monos (auto) 0.4 10^3/uL (0.1-1.4) 12/10/19 04:49 Absolute Eos (auto) 0.2 10^3/uL (0.0-0.6) 12/10/19 04:49 Absolute Basos (auto) 0.0 10^3/uL (0.0-0.2) 12/10/19 04:49 Seg Neutrophils % 55.8 % (42-78) 12/10/19 04:49 PT 12.3 SEC (11.4-15.4) 12/09/19 12:41 INR 0.92 12/09/19 12:41 APTT 28.9 SEC (23.5-35.8) 12/09/19 12:41 Sodium 136.6 mmol/L (137-145) L 12/10/19 04:49 Potassium 3.9 mmol/L (3.6-5.0) 12/10/19 04:49 Chloride 104 mmol/L (98-107) 12/10/19 04:49 Carbon Dioxide 28 mmol/L (22-30) 12/10/19 04:49 Anion Gap 5 (5-19) 12/10/19 04:49 BUN 14 mg/dL (7-20) 12/10/19 04:49 Creatinine 0.56 mg/dL (0.52-1.25) 12/10/19 04:49 Est GFR ( Amer) > 60 (>60) 12/10/19 04:49 Est GFR (MDRD) Non-Af > 60 (>60) 12/10/19 04:49 Glucose 87 mg/dL (75-110) 12/10/19 04:49 POC Glucose 184 mg/dL (70-110) H 12/10/19 16:38 Calcium 8.6 mg/dL (8.4-10.2) 12/10/19 04:49 Magnesium 2.0 mg/dL (1.6-2.3) 12/10/19 04:49 Total Bilirubin 0.4 mg/dL (0.2-1.3) 12/09/19 12:41 Direct Bilirubin 0.0 mg/dL (0.0-0.4) 12/09/19 12:41 Neonat Total Bilirubin Not Reportable 12/09/19 12:41 Neonat Direct Bilirubin Not Reportable 12/09/19 12:41 Neonat Indirect Bili Not Reportable 12/09/19 12:41 AST 22 U/L (14-36) 12/09/19 12:41 ALT 36 U/L (<35) H 12/09/19 12:41 Alkaline Phosphatase 76 U/L (38-126) 12/09/19 12:41 Creatine Kinase 31 U/L (30-135) 12/09/19 12:41 CK-MB (CK-2) 1.24 ng/mL (<4.55) 12/09/19 12:41 Troponin I < 0.012 ng/mL 12/09/19 12:41 Total Protein 7.0 g/dL (6.3-8.2) 12/09/19 12:41 Albumin 4.1 g/dL (3.5-5.0) 12/09/19 12:41 Urine Color STRAW 12/09/19 13:46 Urine Appearance CLEAR 12/09/19 13:46 Urine pH 5.0 (5.0-9.0) 12/09/19 13:46 Ur Specific [place] 1.022 12/09/19 13:46 Urine Protein NEGATIVE mg/dL (NEGATIVE) 12/09/19 13:46 Urine Glucose (UA) >=500 mg/dL (NEGATIVE) H 12/09/19 13:46 Urine Ketones NEGATIVE mg/dL (NEGATIVE) 12/09/19 13:46 Urine Blood NEGATIVE (NEGATIVE) 12/09/19 13:46 Urine Nitrite (Reflex) NEGATIVE (NEGATIVE) 12/09/19 13:46 Urine Bilirubin NEGATIVE (NEGATIVE) 12/09/19 13:46 Urine Urobilinogen NEGATIVE mg/dL (<2.0) 12/09/19 13:46 Leukocyte Esterase Rfl MODERATE (NEGATIVE) H 12/09/19 13:46 Urine RBC (Auto) 1 /HPF 12/09/19 13:46 U Hyaline Cast (Auto) 1 /LPF 12/09/19 13:46 Urine Bacteria (Auto) TRACE /HPF 12/09/19 13:46 Urine WBC (Reflex) 11 /HPF 12/09/19 13:46 Squamous Epi Cells Auto 1 /HPF 12/09/19 13:46 Urine Mucus (Auto) RARE /LPF 12/09/19 13:46 Urine Ascorbic Acid NEGATIVE (NEGATIVE) 12/09/19 13:46 12/09/19 12:41 CK-MB (CK-2) 1.24 Troponin I < 0.012 Impressions: Chest X-Ray 12/09/19 12:24 IMPRESSION: No evidence of acute cardiopulmonary abnormality. Head CT 12/09/19 12:24 IMPRESSION: No evidence of acute or subacute large territory ischemic injury. Stable CT appearance of the brain. EVIDENCE OF ACUTE STROKE: NO. Plan Time Spent: Greater than 30 Minutes Stroke Is this a Stroke Patient?: Yes Stroke Pt being discharged on Anti-thrombolytic therapy?: Yes Stroke Pt being discharged on Anti-coagulation therapy?: No Reason(s) for not prescribing Anti-coagulation therapy:: Not indicated Stroke Pt being discharged on Statins?: Yes Acute Heart Failure - Is this a Heart Failure Patient?: No
[2019-12-10 18:28] VITALS: BP 103/79
[2019-12-10] MEDS ORDERED: FOSFOMYCIN TROMETHAMINE 3 GM PACKET PO ONE (18:30)
== END 2019-12-10 19:22 | disposition home health service (06) ==
LOC: ER 12:20 → INTOOBSV 16:16 → EH 16:16 → 4N 21:59
PROVIDERS: ADMIT Hospitalist; ATTEND Internal Medicine
DX: I69.322 Dysarthria following cerebral infarction (principal); I69.354 Hemiplegia and hemiparesis following cerebral infarction affecting left non-dominant side; R42 Dizziness and giddiness; N39.0 Urinary tract infection, site not specified; I65.21 Occlusion and stenosis of right carotid artery; E11.43 Type 2 diabetes mellitus with diabetic autonomic (poly)neuropathy; E11.65 Type 2 diabetes mellitus with hyperglycemia; K31.84 Gastroparesis; F32.9 Major depressive disorder, single episode, unspecified; I10 Essential (primary) hypertension; E78.5 Hyperlipidemia, unspecified; M21.372 Foot drop, left foot; E11.42 Type 2 diabetes mellitus with diabetic polyneuropathy; R26.89 Other abnormalities of gait and mobility; M79.7 Fibromyalgia; M19.90 Unspecified osteoarthritis, unspecified site; Z79.899 Other long term (current) drug therapy; Z79.02 Long term (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 of antithrombotics/antiplatelets; Z79.4 Long term (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 of insulin; Z79.1 Long term (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 of non-steroidal anti-inflammatories (NSAID); Z88.1 Allergy status to other antibiotic agents; Z85.41 Personal history of malignant neoplasm of cervix uteri; Z90.49 Acquired absence of other specified parts of digestive tract; Z87.891 Personal history of nicotine dependence; Z82.3 Family history of stroke; Z98.890 Other specified postprocedural states
CPT/HCPCS: 93005; 99291; 96375; 96365; 36415 ×2; 87040; 87086; 82553; 82962 ×2; 82550; 83735; 85025 ×2; 85610; 85730; 87088; 80048; 80053; 81001; 84484; 87186; 71045; 70450; 93010; 97116; 97163; G0378 ×2; J1815 ×2; J1644 ×2; J3490 ×4; J2405 ×2; J7060 ×2; J7030

== ENCOUNTER 2020-01-01 15:36 | Observation (INO) | payer OTHER ==
[2020-01-01 16:24] LABS: ABSOLUTE BASOPHILS # (AUTO) 0.1 10^3/uL (0.0-0.2); ABSOLUTE EOSINOPHILS # (AUTO) 0.3 10^3/uL (0.0-0.6); ABSOLUTE LYMPHOCYTES (AUTO) 1.6 10^3/uL (0.5-4.7); ABSOLUTE MONOCYTES (AUTO) 0.6 10^3/uL (0.1-1.4); ABSOLUTE NEUT (AUTO) 4.7 10^3/uL (1.7-8.2); BASOPHILS % (AUTO) 0.8 % (0-2); EOSINOPHILS % (AUTO) 3.9 % (0-6); HEMATOCRIT 41.3 % (36.0-47.0); HEMOGLOBIN 13.7 g/dL (12.0-15.5); LYMPHOCYTES % (AUTO) 21.7 % (13-45); MEAN CORPUSCULAR HEMOGLOBIN 27.6 pg (27.0-33.4); MEAN CORPUSCULAR HGB CONC 33.1 g/dL (32.0-36.0); MEAN CORPUSCULAR VOLUME 83 fl (80-97); MONOCYTES % (AUTO) 8.7 % (3-13); PLATELET COUNT 251 10^3/uL (150-450); RED BLOOD COUNT 4.95 10^6/uL (3.72-5.28); RED CELL DISTRIBUTION WIDTH 14.6 % (11.5-14.0); SEGMENTED NEUTROPHILS % (AUTO) 64.9 % (42-78); TOTAL CELLS COUNTED % (AUTO) 100 %; WHITE BLOOD COUNT 7.3 10^3/uL (4.0-10.5)
[2020-01-01 16:25] LABS: INTERNATIONAL RATION (INR) 0.92; PROTHROMBIN TIME 12.6 SEC (11.4-15.4)
[2020-01-01 16:26] LABS: PARTIAL THROMBOPLASTIN TIME 29.4 SEC (23.5-35.8)
[2020-01-01 16:38] LABS: ALBUMIN 4.4 g/dL (3.5-5.0); ALKALINE PHOSPHATASE 79 U/L (38-126); ANION GAP 6 (5-19); ASPARTATE AMINO TRANSFERASE 27 U/L (14-36); BILIRUBIN,DIRECT 0.1 mg/dL (0.0-0.4); BILIRUBIN,TOTAL 0.4 mg/dL (0.2-1.3); BLOOD UREA NITROGEN 19 mg/dL (7-20); CALCIUM 9.1 mg/dL (8.4-10.2); CARBON DIOXIDE 27 mmol/L (22-30); CHLORIDE 105 mmol/L (98-107); CREATINE KINASE 54 U/L (30-135); GLUCOSE 158 mg/dL (75-110); POTASSIUM 4.3 mmol/L (3.6-5.0); TOTAL PROTEIN 7.4 g/dL (6.3-8.2)
[2020-01-01 16:50] LABS: CREATINE KINASE MB 1.46 ng/mL (<4.55); TROPONIN I 0.025 ng/mL
--- NOTE | 2020-01-01 17:20 | RADIOLOGY REPORT (SQ) ---
EXAM DESCRIPTION: CHEST SINGLE VIEW IMAGES COMPLETED DATE/TIME: 01/01/2020 4:58 pm REASON FOR STUDY: stroke like symptoms COMPARISON: Chest radiograph 12/09/2019 NUMBER OF VIEWS: One view. TECHNIQUE: Single frontal radiographic view of the chest acquired. LIMITATIONS: None. FINDINGS: LUNGS AND PLEURA: Low lung volumes with resultant bronchovascular crowding. No focal pulm onary consolidation, pleural effusion, or pneumothorax. MEDIASTINUM AND HILAR STRUCTURES: No masses. Contour normal. HEART AND VASCULAR STRUCTURES: Heart normal in size. Normal vasculature. BONES: No acute findings. HARDWARE: Unchanged. OTHER: No other significant finding. IMPRESSION: Hypoventilated exam without evidence of acute pulmonary process. TECHNICAL DOCUMENTATION: JOB ID: [id number] 2010 [employer]- All Rights Reserved Reading location - IP/workstation name: [email or web address]
--- NOTE | 2020-01-01 17:32 | RADIOLOGY REPORT (SQ) ---
EXAM DESCRIPTION: CT HEAD WITHOUT IMAGES COMPLETED DATE/TIME: 01/01/2020 5:22 pm REASON FOR STUDY: stroke like symptoms COMPARISON: 12/09/2019 TECHNIQUE: Axial images acquired through the brain without intravenous contrast. Images reviewed wit h bone, brain and subdural windows. Images stored on PACS. All CT scanners at this facility use dose modulation, iterative reconstruction, and/or weight based d osing when appropriate to reduce radiation dose to as low as reasonably achievable (ALARA). [facility]: Dose Right [facility]: CareDose [facility]: Dose Right [facility]: Teradose 4D [facility]: Smart POLYBONA RADIATION DOSE: CT Rad equipment meets quality standard of care and radiation dose reduction techniq ues were employed. CTDIvol: 53.2 mGy. DLP: 991 mGy-cm.. LIMITATIONS: None. FINDINGS: VENTRICLES: Normal size and contour. CEREBRUM: No masses. No hemorrhage. No midline shift. Stable appearance of the white matter. No evid ence for acute infarction. CEREBELLUM: No masses. No hemorrhage. No alteration of density. No evidence for acute infarction. EXTRA-AXIAL SPACES: No fluid collections. ORBITS AND GLOBE: No intra- or extraconal masses. Normal contour of globe without masses. CALVARIUM: No fracture. PARANASAL SINUSES: No fluid or mucosal thickening. SOFT TISSUES: No mass or hematoma. OTHER: No other significant finding. IMPRESSION: NO ACUTE INTRACRANIAL FINDINGS. EVIDENCE OF ACUTE STROKE: NO. TECHNICAL DOCUMENTATION: JOB ID: [id number] Quality ID # [id number]: Final reports with documentation of one or more dose reduction techniques (e.g., Au tomated exposure control, adjustment of the mA and/or kV according to patient size, use of iterative reconstruction technique) 2010 [employer]- All Rights Reserved Reading location - IP/workstation name: [email or web address]
--- NOTE | 2020-01-01 17:53 | RADIOLOGY REPORT (SQ) ---
EXAM DESCRIPTION: CTA HEAD; CTA NECK IMAGES COMPLETED DATE/TIME: 01/01/2020 5:22 pm REASON FOR STUDY: left sided heahache and neck pain, inc stroke sx COMPARISON: 12/07/2019 TECHNIQUE: Post IV contrast scanning, thin section axial imaging through the neck and brain to evalu ate the arterial structures. Source and MIP images are saved and reviewed on PACS. Advanced 3D imaging as volume-rendering, MIPs, SSD performed? yes All CT scanners at this facility use dose modulation, iterative reconstruction, and/or weight based d osing when appropriate to reduce radiation dose to as low as reasonably achievable (ALARA). [facility]: Dose Right [facility]: CareDose [facility]: Dose Right [facility]: Teradose 4D [facility]: eMithilaHaat CONTRAST TYPE AND DOSE: contrast/concentration: Isovue 350.00 mmol/ml; Total Contrast Delivered: 70. 0 ml; Total Saline Delivered: 75.0 ml RENAL FUNCTION: GFR > 60. LIMITATIONS: None. FINDINGS: CAROTIDS: The carotid arteries are patent without evidence of significant focal stenosis. [place]: There is new moderate stenosis -stippling in the right A1 segment of the anterior c erebral artery, this is seen best on the axial series image number 97.. The left anterior, middle, p osterior cerebral arteries are all patent. No evidence of aneurysm or focal stenosis. POSTERIOR CIRCULATION: The vertebral -basilar arteries are patent as is the basilar artery. No aneury sm. BRAIN: No gross enhancing lesions as visualized. The superior cerebral hemispheres are not included in the field of view. BONES: Intact as visualized. SINUSES: No fluid or mucosal thickening. IMPRESSION: There is new moderate stenosis -stippling in the right A1 segment of the anterior cerebr al artery, this is seen best on the axial series image number 97, this could reflect new atherosclero tic disease or possible focal vasculitis. COMMENT: These results were communicated to Dr. Li at 1742 hours. Results were confirmed and re ad back. TECHNICAL DOCUMENTATION: JOB ID: [id number] Quality ID # [id number]: Final reports with documentation of one or more dose reduction techniques (e.g., Au tomated exposure control, adjustment of the mA and/or kV according to patient size, use of iterative reconstruction technique) 2010 [employer]- All Rights Reserved Reading location - IP/workstation name: [email or web address]
--- NOTE | 2020-01-01 17:53 | RADIOLOGY REPORT (SQ) ---
EXAM DESCRIPTION: CTA HEAD; CTA NECK IMAGES COMPLETED DATE/TIME: 01/01/2020 5:22 pm REASON FOR STUDY: left sided heahache and neck pain, inc stroke sx COMPARISON: 12/07/2019 TECHNIQUE: Post IV contrast scanning, thin section axial imaging through the neck and brain to evalu ate the arterial structures. Source and MIP images are saved and reviewed on PACS. Advanced 3D imaging as volume-rendering, MIPs, SSD performed? yes All CT scanners at this facility use dose modulation, iterative reconstruction, and/or weight based d osing when appropriate to reduce radiation dose to as low as reasonably achievable (ALARA). [facility]: Dose Right [facility]: CareDose [facility]: Dose Right [facility]: Teradose 4D [facility]: Motost[place] CONTRAST TYPE AND DOSE: contrast/concentration: Isovue 350.00 mmol/ml; Total Contrast Delivered: 70. 0 ml; Total Saline Delivered: 75.0 ml RENAL FUNCTION: GFR > 60. LIMITATIONS: None. FINDINGS: CAROTIDS: The carotid arteries are patent without evidence of significant focal stenosis. [place]: There is new moderate stenosis -stippling in the right A1 segment of the anterior c erebral artery, this is seen best on the axial series image number 97.. The left anterior, middle, p osterior cerebral arteries are all patent. No evidence of aneurysm or focal stenosis. POSTERIOR CIRCULATION: The vertebral -basilar arteries are patent as is the basilar artery. No aneury sm. BRAIN: No gross enhancing lesions as visualized. The superior cerebral hemispheres are not included in the field of view. BONES: Intact as visualized. SINUSES: No fluid or mucosal thickening. IMPRESSION: There is new moderate stenosis -stippling in the right A1 segment of the anterior cerebr al artery, this is seen best on the axial series image number 97, this could reflect new atherosclero tic disease or possible focal vasculitis. COMMENT: These results were communicated to Dr. Li at 1742 hours. Results were confirmed and re ad back. TECHNICAL DOCUMENTATION: JOB ID: [id number] Quality ID # [id number]: Final reports with documentation of one or more dose reduction techniques (e.g., Au tomated exposure control, adjustment of the mA and/or kV according to patient size, use of iterative reconstruction technique) 2010 [employer]- All Rights Reserved Reading location - IP/workstation name: [email or web address]
[2020-01-01] MEDS ORDERED: ACETAMINOPHEN 1,000 MG/100 ML RTUPB IV ONE (19:15)
--- NOTE | 2020-01-01 20:32 | ER Document Report ---
ED General - General Chief Complaint: General Weakness Stated Complaint: WEAKNESS Primary Care Provider: KATERYNA GONSALEZ MD [Primary Care Provider] - Follow up as needed Notes: 59-year-old female presents to the emergency department stating that she is having worsening of her stroke symptoms. Patient suffered an acute ischemic CVA approximately 1 year ago and has had residual left-sided weakness, difficulty walking and difficulty speaking since then. States that earlier today her blood sugar dropped to 53 and she noticed that her symptoms significantly worsened. States she drank some peach juice and improved her blood sugar but she feels like her symptoms are still worse. Patient feels like she has been increasingly confused since her blood sugar dropped. Also complains of left-sided neck pain and a left-sided headache. States she is never had pain symptoms like these before. Blood sugar on arrival to the emergency department was 163. TRAVEL OUTSIDE OF THE [place] IN LAST 30 DAYS: No - Related Data Allergies/Adverse Reactions: Penicillins Allergy (Unknown, Verified 01/01/20 17:51) cephalexin monohydrate [From Keflex] Allergy (Verified 01/01/20 17:51) ciprofloxacin [From Cipro] Allergy (Verified 01/01/20 17:51) codeine Allergy (Verified 01/01/20 17:51) latex [Latex] Allergy (Verified 01/01/20 17:51) metformin Allergy (Verified 01/01/20 17:51) nitrofurantoin macrocrystalline [From Macrodantin] Allergy (Verified 01/01/20 17:51) penicillin G Allergy (Verified 01/01/20 17:51) Sulfa (Sulfonamide Antibiotics) Allergy (Verified 01/01/20 17:51) tetracycline [Tetracycline] Allergy (Verified 01/01/20 17:51) nitroglycerin [From Nitrostat] Adverse Reaction (Verified 01/01/20 17:51) Past Medical History - General Information source: Patient - Social History Smoking Status: Never Smoker Frequency of alcohol use: None Drug Abuse: None Family History: Arthritis, CVA, DM, Hyperlipidemia, Hypertension, Malignancy, Thyroid Disfunction - Past Medical History Cardiac Medical History: Reports: Hx Hypercholesterolemia, Hx Hypertension Pulmonary Medical History: Reports: Hx Asthma Neurological Medical History: Reports: Hx Cerebrovascular Accident, Hx Migraine Endocrine Medical History: Reports: Hx Diabetes Mellitus Type 1, Hx Diabetes Mellitus Type 2. Denies: Hx Hyperthyroidism, Hx Hypothyroidism Renal/ Medical History: Denies: Hx Peritoneal Dialysis Malignancy Medical History: Reports: Hx Cervical Cancer GI Medical History: Reports: Hx Gastroesophageal Reflux Disease. Denies: Hx Cirrhosis, Hx Hepatitis Musculoskeletal Medical History: Reports Hx Arthritis, Reports Hx Fibromyalgia, Reports Hx Musculoskeletal Deformity, Reports Hx Musculoskeletal Trauma Psychiatric Medical History: Reports: Hx Anxiety, Hx Depression Traumatic Medical History: Reports: Hx Fractures - Facial fractures bilateral toes elbow and left knee Infectious Medical History: Denies: Hx Hepatitis Past Surgical History: Reports: Hx Abdominal Surgery - hernia, Hx Section - 2, Hx Cholecystectomy, Hx Herniorrhaphy, Hx Hysterectomy, Hx Orth opedic Surgery - bilateral toes and elbows left knee twice, Hx Tubal Ligation, Other - Ventral hernia and pseudocyst removal. Denies: Hx Appendectomy - Immunizations Immunizations up to date: Yes Hx Diphtheria, Pertussis, Tetanus Vaccination: Yes Review of Systems - Review of Systems Constitutional: See HPI, Weakness EENT: See HPI - Left-sided neck pain and headache. Cardiovascular: No symptoms reported Respiratory: No symptoms reported Gastrointestinal: No symptoms reported Musculoskeletal: See HPI - Left-sided weakness Neurological/Psychological: See HPI, Confusion, Weakness, Speech impairment -: Yes All other systems reviewed and negative Physical Exam - Vital signs Vitals: Resp Pulse Ox 23 H 96 01/01/20 15:52 01/01/20 15:52 Interpretation: Normal - Notes Notes: GENERAL: Alert, interacts well. Mildly anxious. HEAD: Normocephalic, atraumatic EYES: Pupils equal, round and reactive to light, extraocular movements intact. ENT: Oral mucosa moist, tongue midline. NECK: Full range of motion, supple, trachea midline. LUNGS: Clear to auscultation bilaterally, no wheezes, rales or rhonchi, no respiratory distress. HEART: Regular rate and rhythm, no murmurs, gallops, rubs. ABDOMEN: Soft, nontender, nondistended, bowel sounds present in all 4 quadrants. EXTREMITIES: Moves all 4 extremities spontaneously but is weaker on the left- hand side, no edema, radial and dorsalis pedis pulses 2/4 bilaterally. No cyanosis. NEUROLOGICAL: Alert and oriented x3, slightly slurred speech, not significantly changed from when I saw her approximately 1 month ago. No specific facial droop, she does have 4-5 muscle strength in the left leg, 5 out of 5 muscle strength in the left arm. Patient has an NIH stroke scale of 2. Please see n ursing documentation for exact scoring. This is not significantly changed from prior baseline. Biceps and patellar DTRs 2+ bilaterally. PSYCH: Mildly anxious. SKIN: Warm, Dry, normal turgor. Course - Re-evaluation Re-evalutation: 01/01/20 21:53 CBC unremarkable, coags normal, CMP showed elevated glucose at 158 which then dropped to 69 at bedside and has normalized to 103 after being fed, initial troponin was detectable but negative at 0.025, normalized to 0.012. CT scan of head did not reveal any acute process. Patient is not a candidate for lytics as she has been having stuttering symptoms on and off for a year since her stroke. I did do a CTA of the head and the neck given her new headache and neck pain. Chest X-Ray 01/01/20 15:56 IMPRESSION: Hypoventilated exam without evidence of acute pulmonary process. Head CT 01/01/20 15:56 IMPRESSION: NO ACUTE INTRACRANIAL FINDINGS. EVIDENCE OF ACUTE STROKE: NO. Head CTA 01/01/20 15:56 IMPRESSION: There is new moderate stenosis -stippling in the right A1 segment of the anterior cerebral artery, this is seen best on the axial series image number 97, this could reflect new atherosclerotic disease or possible focal vasculitis. Neck CTA 01/01/20 15:56 IMPRESSION: There is new moderate stenosis -stippling in the right A1 segment of the anterior cerebral artery, this is seen best on the axial series image number 97, this could reflect new atherosclerotic disease or possible focal vasculitis. As noted above there is new moderate stenosis. I discussed this with RONALD Guardado from the neurology team at [facility]. States that they would not stent this unless there were signs of it causing stroke or ischemia on MRI. Discussed with her that our MRI will not be working until Friday, asked if I could transfer her to their facility for more rapid MRI. She states that they have a 2 to 3-day wait for an MRI and at that the patient cannot be transferred ER to ER simply for imaging. States that the patient would not get an MRI any faster there than here, recommends admission for standard work-up, MRI and make sure she is on daily 81 mg aspirin, Plavix and a statin for atherosclerotic disease of the brain. Patient does not meet criteria for lytics or acute endovascular intervention at this time. Discussed patient with Dr. Bhakta who agrees to accept the patient to his service on the IMCU. - Vital Signs Vital signs: Temp Pulse Resp BP Pulse Ox 98.6 F 78 19 124/75 95 01/01/20 16:00 01/01/20 18:43 01/01/20 18:43 01/01/20 18:43 01/01/20 18:43 - Laboratory Result Diagrams: 01/01/20 15:46 01/01/20 15:46 Laboratory results interpreted by me: 01/01/20 01/01/20 01/01/20 15:40 15:46 15:46 RDW 14.6 H Glucose 158 H POC Glucose 163 H 01/01/20 18:50 RDW Glucose POC Glucose 69 L - EKG Interpretation by Me Additional EKG results interpreted by me: 01/01/20 21:55 EKG shows sinus tachycardia at a rate of 75, normal axis, normal intervals, poor R wave progression, no ST segment elevations or depressions, there are T wave inversions noted in lead III isolated and not specific per my interpretation. Discharge - Discharge Clinical Impression: History of CVA (cerebrovascular accident), Left-sided weakness, Slurred speech, Hypoglycemia associated with type 2 diabetes mellitus Condition: Fair Disposition: ADMITTED INPATIENT Admitting Provider: Yony (Hospitalist) Unit Admitted: IMCU Referrals: KATERYNA GONSALEZ MD [Primary Care Provider] - Follow up as needed
[2020-01-01] MEDS ORDERED: ONDANSETRON HCL INJ/PF 4 MG/2 ML SDV IV PRN (21:03)
--- NOTE | 2020-01-01 21:06 | EKG REPORT ---
SEVERITY:- BORDERLINE ECG - SINUS RHYTHM BORDERLINE R WAVE PROGRESSION, ANTERIOR LEADS : Confirmed by: Eileen Bellamy MD 01-Jan-2020 21:05:55
[2020-01-01] MEDS ORDERED: DEXTROSE 40% GEL 15 GM TUBE PO PRN ×2 (21:23)
[2020-01-01] MEDS ORDERED: GLUCAGON,HUMAN RECOMB 1 MG INJ IM PRN (21:23)
[2020-01-01] MEDS ORDERED: DEXTROSE 50%-WATER 25 GM/50 ML DISP.SYRIN IV PRN ×2 (21:23)
--- NOTE | 2020-01-01 21:23 | PDOC H&P ---
History of Present Illness Admission Date/PCP: KATERYNA GONSALEZ MD History of Present Illness: ORLY OSEI is a 59 year old female with a history of prior stroke, hypertension, insulin-dependent diabetes mellitus, hyperlipidemia, and obesity who presents with strokelike symptoms since this afternoon. She said around 230 to 3:00 this afternoon she had worsening of her baseline left-sided weakness and some worsening of her speech deficit and trouble with balance. She said she thought it was her blood sugar and she checked her blood sugar and it was low in the 50s and so she drank some juice and it came up but she was still having the deficit. She came to the ER to get checked out. Her vital signs were okay and her labs were unremarkable. A CTA of the head and neck was done which showed a stenosis in the right A1 segment of the LYNNE. A consultation was placed for the neurology service at [facility] and they recommended getting an MRI. There was some discussion about possible stenting but an MRI would be needed first. Our MRI machine is down and will not be available until Friday apparently. She does take an aspirin and Plavix at home, as well as Lipitor. She is a diabetic. She does not smoke. She says her symptoms are still present. Past Medical History Cardiac Medical History: Reports: Hyperlipidema, Hypertension Pulmonary Medical History: Reports: Asthma Neurological Medical History: Reports: Migraine Endocrine Medical History: Reports: Diabetes Mellitus Type 1, Diabetes Mellitus Type 2 Denies: Hyperthyroidism, Hypothyroidism Malignancy Medical History: Reports: Cervical Cancer GI Medical History: Reports: Gastroesophageal Reflux Disease Denies: Cirrhosis, Hepatitis Musculoskeltal Medical History: Reports: Arthritis, Fibromyalgia Psychiatric Medical History: Reports: Depression Past Surgical History Past Surgical History: Reports: Section - 2, Cholecystectomy, Herni orrhaphy, Hysterectomy, Orthopedic Surgery - bilateral toes and elbows left knee twice, Tubal Ligation, Other - Ventral hernia and pseudocyst removal Denies: Appendectomy Social History Smoking Status: Never Smoker Frequency of Alcohol Use: None Hx Recreational Drug Use: No Drugs: None Hx Prescription Drug Abuse: No Family History Family History: Arthritis, CVA, DM, Hyperlipidemia, Hypertension, Malignancy, Thyroid Disfunction Parental Family History Reviewed: Yes Children Family History Reviewed: Yes Sibling(s) Family History Reviewed.: Yes Medication/Allergy Home Medications: Meclizine HCl [Antivert 25 mg Tablet] 12.5 mg PO TIDP PRN 05/04/19 Metoprolol Succinate [Toprol Xl 25 mg Tab.sr] 25 mg PO DAILY 05/04/19 [place]-3 Fatty Acids/Fish Oil [[place] 3 Fish Oil Softgel] 1 each PO DAILY 05/04/19 Quetiapine Fumarate [Seroquel 100 mg Tablet] 100 mg PO QHS 05/04/19 Tumeric 500 mg PO DAILY 05/04/19 Insulin Degludec [Tresiba Flextouch U-100] 30 unit SQ BID 07/02/19 Dapagliflozin Propanediol [Farxiga] 10 mg PO DAILY 08/04/19 Amlodipine Besylate [Norvasc 2.5 mg Tablet] 2.5 mg PO DAILY 11/14/19 Docusate Sodium [Colace 100 mg Capsule] 300 mg PO DAILY 11/14/19 Loperamide HCl [Imodium 2 mg Capsule] 4 mg PO PRN PRN 11/14/19 Pantoprazole Sodium [Protonix [address] Tablet] 20 mg PO QAM 11/14/19 Pregabalin 150 mg PO Q12 11/14/19 Clopidogrel Bisulfate [Plavix 75 mg Tablet] 75 mg PO DAILY #30 tablet 11/15/19 Insulin Aspart [Novolog Flexpen] See Protocol SUBCUT AC #1 pen 11/15/19 Aspirin [Lo-Dose Aspirin EC] 81 mg PO DAILY #30 tablet.dr 12/10/19 Atorvastatin Calcium [Lipitor 40 mg Tablet] 80 mg PO QHS 30 Days 12/10/19 Naproxen [Naprosyn 250 mg Tablet] 250 mg PO BIDP PRN #20 tablet 12/10/19 Ondansetron [Zofran Odt 4 mg Tablet] 1 - 2 tab PO Q4HP PRN #15 tab.rapdis 12/10/19 Allergies/Adverse Reactions: Penicillins Allergy (Unknown, Verified 01/01/20 17:51) cephalexin monohydrate [From Keflex] Allergy (Verified 01/01/20 17:51) ciprofloxacin [From Cipro] Allergy (Verified 01/01/20 17:51) codeine Allergy (Verified 01/01/20 17:51) latex [Latex] Allergy (Verified 01/01/20 17:51) metformin Allergy (Verified 01/01/20 17:51) nitrofurantoin macrocrystalline [From Macrodantin] Allergy (Verified 01/01/20 17:51) penicillin G Allergy (Verified 01/01/20 17:51) Sulfa (Sulfonamide Antibiotics) Allergy (Verified 01/01/20 17:51) tetracycline [Tetracycline] Allergy (Verified 01/01/20 17:51) nitroglycerin [From Nitrostat] Adverse Reaction (Verified 01/01/20 17:51) Review of Systems All systems: reviewed and no additional remarkable complaints except as stated - All systems were reviewed and were negative except as noted in the HPI Physical Exam Vital Signs: Temp Pulse Resp BP Pulse Ox 98.6 F 78 19 124/75 95 01/01/20 16:00 01/01/20 18:43 01/01/20 18:43 01/01/20 18:43 01/01/20 18:43 Intake & Output 12/31/19 01/01/20 01/02/20 06:59 06:59 06:59 Intake Total 100 Balance 100 Weight 82.3 kg General appearance: PRESENT: no acute distress, cooperative, disheveled, obese Head exam: PRESENT: atraumatic, normocephalic Eye exam: PRESENT: EOMI, PERRLA. ABSENT: conjunctival injection, nystagmus, scleral icterus Ear exam: PRESENT: normal external ear exam Mouth exam: PRESENT: moist, neck supple Teeth exam: PRESENT: poor dentation Throat exam: ABSENT: post pharyngeal erythema Neck exam: PRESENT: full ROM. ABSENT: carotid bruit, JVD, lymphadenopathy, meningismus, tenderness, thyromegaly Respiratory exam: PRESENT: clear to auscultation gerardo, symmetrical, unlabored. ABSENT: accessory muscle use, chest wall tenderness, crackles, prolonged expiratory phas, rhonchi, tachypnea, wheezes Cardiovascular exam: PRESENT: RRR, +S1, +S2 Pulses: PRESENT: normal carotid pulses Vascular exam: PRESENT: normal capillary refill GI/Abdominal exam: PRESENT: normal bowel sounds, soft. ABSENT: distended, guarding, rebound, tenderness Extremities exam: ABSENT: clubbing, pedal edema Musculoskeletal exam: PRESENT: normal inspection. 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, at least some of which is chronic Psychiatric exam: PRESENT: flat affect Skin exam: PRESENT: dry, warm Results Laboratory Results: 01/01/20 15:46 01/01/20 15:46 01/01/20 01/01/20 15:46 15:46 WBC 7.3 RBC 4.95 Hgb 13.7 Hct 41.3 MCV 83 MCH 27.6 MCHC 33.1 RDW 14.6 H Plt Count 251 Seg Neutrophils % 64.9 Sodium 137.9 Potassium 4.3 Chloride 105 Carbon Dioxide 27 Anion Gap 6 BUN 19 Creatinine 0.60 Est GFR ( Amer) > 60 Glucose 158 H Calcium 9.1 Total Bilirubin 0.4 AST 27 Alkaline Phosphatase 79 Total Protein 7.4 Albumin 4.4 01/01/20 01/01/20 01/01/20 15:46 15:46 19:01 Creatine Kinase 54 CK-MB (CK-2) 1.46 Troponin I 0.025 < 0.012 Impressions: Chest X-Ray 01/01/20 15:56 IMPRESSION: Hypoventilated exam without evidence of acute pulmonary process. Head CT 01/01/20 15:56 IMPRESSION: NO ACUTE INTRACRANIAL FINDINGS. EVIDENCE OF ACUTE STROKE: NO. Head CTA 01/01/20 15:56 IMPRESSION: There is new moderate stenosis -stippling in the right A1 segment of the anterior cerebral artery, this is seen best on the axial series image number 97, this could reflect new atherosclerotic disease or possible focal vasculitis. Neck CTA 01/01/20 15:56 IMPRESSION: There is new moderate stenosis -stippling in the right A1 segment of the anterior cerebral artery, this is seen best on the axial series image number 97, this could reflect new atherosclerotic disease or possible focal vasculitis. Assessment and Plan - Diagnosis (1) CVA (cerebral vascular accident) Qualifiers: CVA mechanism: stenosis Precerebral and cerebral artery: anterior cerebral artery Laterality of affected vessel: right Qualified Code(s): I63.521 - Cerebral infarction due to unspecified occlusion or stenosis of right anterior cerebral artery Is this a current diagnosis for this admission?: Yes Plan: Trying to get an MRI but apparently machine is down until Friday. Neurology service at [facility] recommended that she get this so that they can plan further treatment if indicated. She is already on aspirin and Plavix and a statin and so we will continue these. Her blood pressures are normal, but we will hold her medications and allow permissive hypertension for at least the next 24 hours. We will have her evaluated by speech therapy, Occupational Therapy, and physical therapy. She has some chronic dysarthria and so I do not know how much worse it is because I do not know her baseline, but she says is little bit worse than usual. She also has some decreased sales representative graphic art strength on the left at least some of which is chronic, but she says it is little worse than usual. She says she does not feel like her legs are weak but that she does have trouble with her balance. 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 of insulin Is this a current diagnosis for this admission?: Yes Plan: Diabetic diet, will continue her home insulin regimen and cover her with a sliding scale as needed (3) Dysarthria as late effect of cerebrovascular accident (CVA) Is this a current diagnosis for this admission?: Yes (4) HLD (hyperlipidemia) Qualifiers: Hyperlipidemia type: unspecified Qualified Code(s): E78.5 - Hyperlipidemia, unspecified Is this a current diagnosis for this admission?: Yes Plan: Continue statin - Time Time Spent with patient: 35 or more minutes Anticipated Discharge Disposition: Home with Home Health Anticipated Discharge Timeframe: within 72 hours - Inpatient Certification Based on my medical assessment, after consideration of the patient's comorbidities, presenting symptoms, or acuity I expect that the services needed warrant INPATIENT care.: Yes I certify that my determination is in accordance with my understanding of Medicare's requirements for reasonable and necessary INPATIENT services [42 CFR 412.3e].: Yes Medical Necessity: Significant Comorbidiites Make Outpatient Treatment Too Risky, Need Close Monitoring Due to Risk of Patient Decompensation, Need For Continuous Telemetry Monitoring, Need for Neurological Checks, Risk of Complication if Not Cared For in Hospital
[2020-01-01 22:21] LABS: APPEARANCE,URINE SLIGHTLY-CLOUDY; BILIRUBIN,URINE NEGATIVE (NEGATIVE); CALCIUM OXALATE CRYSTALS,URINE FEW /HPF; COLOR,URINE YELLOW; GLUCOSE, URINE >=500 mg/dL (NEGATIVE); KETONES,URINE NEGATIVE (NEGATIVE); PROTEIN,URINE NEGATIVE (NEGATIVE); URINE SPECIFIC GRAVITY 1.036; UROBILINOGEN,URINE NEGATIVE mg/dL (<2.0)
[2020-01-01] MEDS: INSULIN LISPRO 100 UNIT/ML 3 ML VIAL SUBCUT SCH (23:49)
[2020-01-01] MEDS: HEPARIN SOD (PORCINE) 5,000 UNIT/ML 1 ML VIAL SUBCUT SCH (23:50)
[2020-01-02] MEDS: HEPARIN SOD (PORCINE) 5,000 UNIT/ML 1 ML VIAL SUBCUT SCH ×3 (06:00→21:53)
[2020-01-02] MEDS: INSULIN LISPRO 100 UNIT/ML 3 ML VIAL SUBCUT SCH ×4 (08:57→21:53)
[2020-01-02] MEDS ORDERED: LOSARTAN POTASSIUM 50 MG TABLET PO SCH (11:00)
--- NOTE | 2020-01-02 11:02 | PDOC PROGRESS REPORT ---
Subjective Progress Note for:: 01/02/20 Subjective:: ORLY OSEI is a 59 year old female with a history of prior stroke, hypertension, insulin-dependent diabetes mellitus, hyperlipidemia, and obesity who presents with strokelike symptoms since this afternoon. She said around 230 to 3:00 this afternoon she had worsening of her baseline left-sided weakness and some worsening of her speech deficit and trouble with balance. She said she thought it was her blood sugar and she checked her blood sugar and it was low in the 50s and so she drank some juice and it came up but she was still having the deficit. She came to the ER to get checked out. Her vital signs were okay and her labs were unremarkable. A CTA of the head and neck was done which showed a stenosis in the right A1 segment of the LYNNE. A consultation was placed for the neurology service at [facility] and they recommended getting an MRI. There was some discussion about possible stenting but an MRI would be needed first. Our MRI machine is down and will not be available until Friday apparently. She does take an aspirin and Plavix at home, as well as Lipitor. She is a diabetic. She does not smoke. She says her symptoms are still present. 01/20/2020. No acute events overnight. Patient currently resting in bed no apparent distress, knitting, cooperative with physical examination, answers questions appropriately, stating that she is almost back to her baseline however her vertigo is more consistent compared to before, denies any fever, chills, nausea, vomiting, diarrhea, constipation or any urinary symptoms. P.o. tolerant. Reason For Visit: ACUTE CVA Physical Exam Vital Signs: Temp Pulse Resp BP Pulse Ox 97.6 F 69 13 110/54 L 99 01/02/20 07:54 01/02/20 07:54 01/02/20 07:54 01/02/20 07:54 01/02/20 07:54 Intake & Output 01/01/20 01/02/20 01/03/20 06:59 06:59 06:59 Intake Total 766 Output Total 800 Balance -34 Weight 84.9 kg General appearance: PRESENT: no acute distress, obese, well-developed, well- nourished Head exam: PRESENT: atraumatic, normocephalic Respiratory exam: PRESENT: clear to auscultation gerardo. ABSENT: rales, rhonchi, wheezes Cardiovascular exam: PRESENT: RRR. ABSENT: diastolic murmur, rubs, systolic murmur GI/Abdominal exam: PRESENT: normal bowel sounds, soft. ABSENT: distended, guarding, mass, organolmegaly, rebound, tenderness Neurological exam: PRESENT: alert, awake, oriented to person, oriented to place, oriented to time, oriented to situation, CN II-XII grossly intact - Dysarthria, mild right facial droop., motor sensory deficit - Left lower extremity strength 2/5. Skin exam: PRESENT: dry, intact, warm. ABSENT: cyanosis, rash Results Laboratory Results: 01/01/20 15:46 01/01/20 15:46 01/01/20 01/01/20 01/01/20 15:46 15:46 16:20 WBC 7.3 RBC 4.95 Hgb 13.7 Hct 41.3 MCV 83 MCH 27.6 MCHC 33.1 RDW 14.6 H Plt Count 251 Seg Neutrophils % 64.9 Sodium 137.9 Potassium 4.3 Chloride 105 Carbon Dioxide 27 Anion Gap 6 BUN 19 Creatinine 0.60 Est GFR ( Amer) > 60 Glucose 158 H Calcium 9.1 Total Bilirubin 0.4 AST 27 Alkaline Phosphatase 79 Total Protein 7.4 Albumin 4.4 Urine Color YELLOW Urine Appearance SLIGHTLY-CLOUDY Urine pH 5.0 Ur Specific [place] 1.036 Urine Protein NEGATIVE Urine Glucose (UA) >=500 H Urine Ketones NEGATIVE Urine Blood MODERATE H Urine RBC (Auto) 2 01/01/20 01/01/20 01/01/20 15:46 15:46 19:01 Creatine Kinase 54 CK-MB (CK-2) 1.46 Troponin I 0.025 < 0.012 Impressions: Chest X-Ray 01/01/20 15:56 IMPRESSION: Hypoventilated exam without evidence of acute pulmonary process. Head CT 01/01/20 15:56 IMPRESSION: NO ACUTE INTRACRANIAL FINDINGS. EVIDENCE OF ACUTE STROKE: NO. Head CTA 01/01/20 15:56 IMPRESSION: There is new moderate stenosis -stippling in the right A1 segment of the anterior cerebral artery, this is seen best on the axial series image number 97, this could reflect new atherosclerotic disease or possible focal vasculitis. Neck CTA 01/01/20 15:56 IMPRESSION: There is new moderate stenosis -stippling in the right A1 segment of the anterior cerebral artery, this is seen best on the axial series image number 97, this could reflect new atherosclerotic disease or possible focal vasculitis. Assessment and Plan - Diagnosis (1) CVA (cerebral vascular accident) Qualifiers: CVA mechanism: stenosis Precerebral and cerebral artery: anterior cerebral artery Laterality of affected vessel: right Qualified Code(s): I63.521 - Cerebral infarction due to unspecified occlusion or stenosis of right anterior cerebral artery Is this a current diagnosis for this admission?: Yes Plan: As per admitting doctor neurology service at [facility] recommended that she get this so that they can plan further treatment if indicated. She is already on aspirin and Plavix and a statin and so we will continue these. Her blood pressures are normal, but we will hold her medications and allow permissive hypertension for at least the next 24 hours. We will have her evaluated by speech therapy, Occupational Therapy, and physical therapy. She has some chronic dysarthria and so I do not know how much worse it is because I do not know her baseline, but she says is little bit worse than usual. 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 She says she does not feel like her legs are weak but that she does have trouble with her balance. 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 Diabetes mellitus complication status: with neurologic complications Diabetes mellitus complication detail: with other neurological complication Qualified Code(s): E11.49 - Type 2 diabetes mellitus with other diabetic neurological complication; Z79.4 - terminal carman (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 of insulin Is this a current diagnosis for this admission?: Yes Plan: Diabetic diet, will continue her home insulin regimen and cover her with a sliding scale as needed (3) HLD (hyperlipidemia) Qualifiers: Hyperlipidemia type: unspecified Qualified Code(s): E78.5 - Hyperlipidemia, unspecified Is this a current diagnosis for this admission?: Yes Plan: Continue statin (4) HTN (hypertension) Qualifiers: Hypertension type: essential hypertension Qualified Code(s): I10 - Essential (primary) hypertension Is this a current diagnosis for this admission?: Yes Plan: Euvolemic. Normotensive. Resume home meds. Adjust meds as needed. - Time Time Spent with patient: 25-34 minutes Medications reviewed and adjusted accordingly: Yes Anticipated Discharge Disposition: Home, Self Care Anticipated Discharge Timeframe: within 48 hours
[2020-01-02 12:18] LABS: HEMATOCRIT 38.8 % (36.0-47.0); HEMOGLOBIN 13.1 g/dL (12.0-15.5); MEAN CORPUSCULAR HEMOGLOBIN 27.9 pg (27.0-33.4); MEAN CORPUSCULAR HGB CONC 33.8 g/dL (32.0-36.0); MEAN CORPUSCULAR VOLUME 82 fl (80-97); PLATELET COUNT 218 10^3/uL (150-450); RED BLOOD COUNT 4.71 10^6/uL (3.72-5.28); RED CELL DISTRIBUTION WIDTH 14.6 % (11.5-14.0); WHITE BLOOD COUNT 5.5 10^3/uL (4.0-10.5)
[2020-01-02 12:37] LABS: ANION GAP 5 (5-19); BLOOD UREA NITROGEN 16 mg/dL (7-20); CALCIUM 9.2 mg/dL (8.4-10.2); CARBON DIOXIDE 29 mmol/L (22-30); CHLORIDE 104 mmol/L (98-107); CHOLESTEROL 164.12 mg/dL (0-200); GLUCOSE 156 mg/dL (75-110); POTASSIUM 4.5 mmol/L (3.6-5.0); TRIGLYCERIDES 90 mg/dL (<150)
[2020-01-02 12:47] LABS: DIRECT LDL 81 mg/dL (<100)
[2020-01-02] MEDS: ASPIRIN 81 MG TABLET, ENT COATED PO SCH (13:12)
[2020-01-02] MEDS: METOPROLOL SUCCINATE 25 MG TAB.SR.24H PO SCH (13:13)
[2020-01-02] MEDS: CLOPIDOGREL BISULFATE 75 MG TABLET PO SCH (13:13)
[2020-01-02] MEDS ORDERED: ACETAMINOPHEN 325 MG TABLET PO PRN ×2 (13:41→14:00)
[2020-01-02] MEDS: HYDROXYZINE PAMOATE 25 MG CAPSULE PO PRN ×2 (14:10→21:57)
[2020-01-02] MEDS: CARBAMAZEPINE 100 MG TAB.SR.12H PO SCH (17:27)
[2020-01-02] MEDS: OXYCODONE-ACETAMINOPHEN 5-325 MG TABLET PO PRN (17:31)
[2020-01-02] MEDS ORDERED: ATORVASTATIN CALCIUM 80 MG TABLET PO SCH (22:00)
[2020-01-02] MEDS ORDERED: INSULIN GLARGINE,HUM.REC.ANLOG 1,000 UNIT/10 ML VIAL SUBCUT SCH (22:00)
[2020-01-02] MEDS ORDERED: ATORVASTATIN CALCIUM 40 MG TABLET PO SCH (22:00)
[2020-01-02] MEDS ORDERED: QUETIAPINE FUMARATE 25 MG TABLET PO SCH (22:00)
[2020-01-02] MEDS ORDERED: QUETIAPINE FUMARATE 100 MG TABLET PO SCH ×2 (22:00)
[2020-01-03] MEDS: HEPARIN SOD (PORCINE) 5,000 UNIT/ML 1 ML VIAL SUBCUT SCH ×2 (06:12→13:31)
[2020-01-03] MEDS: HYDROXYZINE PAMOATE 25 MG CAPSULE PO PRN ×2 (06:16→13:33)
[2020-01-03] MEDS ORDERED: MECLIZINE HCL 12.5 MG TABLET PO PRN (07:49)
[2020-01-03] MEDS ORDERED: ONDANSETRON HCL INJ/PF 4 MG/2 ML SDV IV PRN (08:30)
[2020-01-03] MEDS: INSULIN LISPRO 100 UNIT/ML 3 ML VIAL SUBCUT SCH ×2 (09:17→11:21)
[2020-01-03] MEDS: ASPIRIN 81 MG TABLET, ENT COATED PO SCH (09:30)
[2020-01-03] MEDS: CARBAMAZEPINE 100 MG TAB.SR.12H PO SCH (09:31)
[2020-01-03] MEDS: METOPROLOL SUCCINATE 25 MG TAB.SR.24H PO SCH (09:31)
[2020-01-03] MEDS: CLOPIDOGREL BISULFATE 75 MG TABLET PO SCH (09:31)
[2020-01-03] MEDS: OXYCODONE-ACETAMINOPHEN 5-325 MG TABLET PO PRN (09:31)
[2020-01-03] MEDS ORDERED: OMEGA-3 ACID ETHYL ESTERS 1 GM CAPSULE PO SCH (10:00)
[2020-01-03] MEDS ORDERED: (PENDING PHARMACY ID) (Omega-3 Fatty Acids/Fish Oil [Omega 3 Fish Oil Softgel] 1 EACH) PO SCH (10:00)
[2020-01-03] MEDS ORDERED: (PENDING PHARMACY ID) (Linaclotide [Linzess] 72 MCG) PO SCH (10:00)
[2020-01-03] MEDS ORDERED: DOCUSATE SODIUM 100 MG CAPSULE PO SCH (10:00)
[2020-01-03] MEDS ORDERED: LOSARTAN POTASSIUM 25 MG TABLET PO SCH (10:00)
[2020-01-03] MEDS ORDERED: LOSARTAN POTASSIUM 50 MG TABLET PO SCH (10:00)
[2020-01-03] MEDS ORDERED: PREGABALIN 50 MG CAPSULE PO SCH (10:00)
[2020-01-03] MEDS ORDERED: DIPHENHYDRAMINE HCL 2% CREAM 30 GM TP SCH (12:00)
--- NOTE | 2020-01-03 13:22 | PDOC PROGRESS REPORT ---
Subjective Progress Note for:: 01/03/20 Subjective:: ORLY OSEI is a 59 year old female with a history of prior stroke, hypertension, insulin-dependent diabetes mellitus, hyperlipidemia, and obesity who presents with strokelike symptoms since this afternoon. She said around 230 to 3:00 this afternoon she had worsening of her baseline left-sided weakness and some worsening of her speech deficit and trouble with balance. She said she thought it was her blood sugar and she checked her blood sugar and it was low in the 50s and so she drank some juice and it came up but she was still having the deficit. She came to the ER to get checked out. Her vital signs were okay and her labs were unremarkable. A CTA of the head and neck was done which showed a stenosis in the right A1 segment of the LYNNE. A consultation was placed for the neurology service at [facility] and they recommended getting an MRI. There was some discussion about possible stenting but an MRI would be needed first. Our MRI machine is down and will not be available until Friday apparently. She does take an aspirin and Plavix at home, as well as Lipitor. She is a diabetic. She does not smoke. She says her symptoms are still present. 01/02/2020. No acute events overnight. Patient currently resting in bed no apparent distress, knitting, cooperative with physical examination, answers questions appropriately, stating that she is almost back to her baseline however her vertigo is more consistent compared to before, denies any fever, chills, nausea, vomiting, diarrhea, constipation or any urinary symptoms. P.o. tolerant. 01/03/2020. No acute events overnight. Comfortably resting in bed no apparent distress, denies any new focal neurological symptoms. Still complaining of vertigo. Denies any fever, chills, nausea, vomiting, rectal constipation or enuresis. Potentially discharge however patient is pending an MRI head unfortunately MRI machine is broken and is in the process of being repaired. Reason For Visit: CVA Physical Exam Vital Signs: Temp Pulse Resp BP Pulse Ox 97.8 F 80 17 126/76 H 96 01/03/20 03:20 01/03/20 11:56 01/03/20 11:56 01/03/20 11:56 01/03/20 11:56 Intake & Output 01/02/20 01/03/20 01/04/20 06:59 06:59 06:59 Intake Total 766 1520 150 Output Total 800 2100 1500 Balance -34 -641 -7970 Weight 84.9 kg 85.8 kg General appearance: PRESENT: no acute distress, obese, well-developed, well- nourished Head exam: PRESENT: atraumatic, normocephalic Respiratory exam: PRESENT: clear to auscultation gerardo. ABSENT: rales, rhonchi, wheezes Cardiovascular exam: PRESENT: RRR. ABSENT: diastolic murmur, rubs, systolic murmur GI/Abdominal exam: PRESENT: normal bowel sounds, soft. ABSENT: distended, guarding, mass, organolmegaly, rebound, tenderness Neurological exam: PRESENT: alert, awake, oriented to person, oriented to place, oriented to time, oriented to situation, CN II-XII grossly intact - Dysarthria. Mild right facial droop., motor sensory deficit - Left lower extremity strength to 3/5. Results Laboratory Results: 01/02/20 11:15 01/02/20 11:15 01/01/20 01/01/20 01/01/20 15:46 15:46 19:01 Creatine Kinase 54 CK-MB (CK-2) 1.46 Troponin I 0.025 < 0.012 Impressions: Chest X-Ray 01/01/20 15:56 IMPRESSION: Hypoventilated exam without evidence of acute pulmonary process. Head CT 01/01/20 15:56 IMPRESSION: NO ACUTE INTRACRANIAL FINDINGS. EVIDENCE OF ACUTE STROKE: NO. Head CTA 01/01/20 15:56 IMPRESSION: There is new moderate stenosis -stippling in the right A1 segment of the anterior cerebral artery, this is seen best on the axial series image number 97, this could reflect new atherosclerotic disease or possible focal vasculitis. Neck CTA 01/01/20 15:56 IMPRESSION: There is new moderate stenosis -stippling in the right A1 segment of the anterior cerebral artery, this is seen best on the axial series image number 97, this could reflect new atherosclerotic disease or possible focal vasculitis. Assessment and Plan - Diagnosis (1) CVA (cerebral vascular accident) Qualifiers: CVA mechanism: stenosis Precerebral and cerebral artery: anterior cerebral artery Laterality of affected vessel: right Qualified Code(s): I63.521 - Cerebral infarction due to unspecified occlusion or stenosis of right anterior cerebral artery Is this a current diagnosis for this admission?: Yes Plan: As per admitting doctor neurology service at [facility] recommended that she get this so that they can plan further treatment if indicated. She is already on aspirin and Plavix and a statin and so we will continue these. Her blood pressures are normal, but we will hold her medications and allow permissive hype rtension for at least the next 24 hours. We will have her evaluated by speech therapy, Occupational Therapy, and physical therapy. She has some chronic dysarthria and so I do not know how much worse it is because I do not know her baseline, but she says is little bit worse than usual. 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 She says she does not feel like her legs are weak but that she does have trouble with her balance. 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 Normotensive. Resume home meds. Adjust meds as needed. - Time Time Spent with patient: 15-24 minutes Medications reviewed and adjusted accordingly: Yes Anticipated Discharge Disposition: Home with Home Health Anticipated Discharge Timeframe: within 24 hours
[2020-01-03] MEDS ORDERED: LORAZEPAM INJ 2 MG/1 ML VIAL ONE (14:37)
[2020-01-03] MEDS ORDERED: LORAZEPAM INJ 2 MG/1 ML VIAL IV ONE (15:00)
--- NOTE | 2020-01-03 15:34 | RADIOLOGY REPORT (SQ) ---
EXAM DESCRIPTION: MRI HEAD WITHOUT IMAGES COMPLETED DATE/TIME: 01/03/2020 2:58 pm REASON FOR STUDY: acute cva COMPARISON: None. TECHNIQUE: Multiplanar imaging includes non-contrasted T1, T2, FLAIR, and diffusion with ADC map seq uences. Images stored on PACS. LIMITATIONS: None. FINDINGS: ANATOMY: No anomalies. Normal vascular flow voids. Pituitary fossa normal. CSF SPACES: Normal in size and contour. No hemorrhage. CEREBRUM: Sulci and gyri normal in size and contour. Normal white matter signal on FLAIR imaging. No evidence of hemorrhage, mass, or extraaxial fluid collection. POSTERIOR FOSSA: No signal alteration. No hemorrhage. No edema, masses or mass effect. Internal justin tory canals, cerebello-pontine angles, mastoids normal. DIFFUSION IMAGING: Negative for acute or sub-acute infarction. ORBITS: No masses. Globes normal. PARANASAL SINUSES: No fluid levels. Mucosa normal. OTHER: No other significant finding. IMPRESSION: NORMAL MRI OF THE BRAIN WITHOUT INTRAVENOUS GADOLINIUM CONTRAST. EVIDENCE OF ACUTE STROKE: NO. TECHNICAL DOCUMENTATION: JOB ID: [id number] [employer]- All Rights Reserved Reading location - IP/workstation name: [email or web address]
[2020-01-03 16:10] VITALS: BP 122/68
--- NOTE | 2020-01-07 14:57 | PDOC DISCHARGE SUMMARY ---
Impression - Admit/DC Date/PCP Admission Date/Primary Care Provider: 01/01/20 21:11 KATERYNA GONSALEZ MD Discharge Date: 01/07/20 - Discharge Diagnosis (1) TIA (transient ischemic attack) Is this a current diagnosis for this admission?: Yes (2) CVA (cerebral vascular accident) Is this a current diagnosis for this admission?: Yes (3) Diabetes mellitus Is this a current diagnosis for this admission?: Yes (4) HLD (hyperlipidemia) Is this a current diagnosis for this admission?: Yes (5) HTN (hypertension) Is this a current diagnosis for this admission?: Yes - Additional Information Discharge Diet: Cardiac Discharge Activity: Activity As Tolerated, Balance Activity w/Rest Referrals: KATERYNA GONSALEZ MD [Primary Care Provider] - 01/12/20 9:45 am Prescriptions: Meclizine HCl [Antivert 25 mg Tablet] 25 mg PO Q8 10 Days #30 tablet Atorvastatin Calcium [Lipitor 80 mg Tablet] 80 mg PO QHS 30 Days #30 tablet Home Medications: Metoprolol Succinate [Toprol Xl 25 mg Tab.sr] 25 mg PO DAILY 05/04/19 [place]-3 Fatty Acids/Fish Oil [[place] 3 Fish Oil Softgel] 1 each PO DAILY 05/04/19 Quetiapine Fumarate [Seroquel 100 mg Tablet] 100 mg PO QHS 05/04/19 Tumeric 500 mg PO DAILY 05/04/19 Insulin Degludec [Tresiba Flextouch U-100] 30 unit SQ BID 07/02/19 Dapagliflozin Propanediol [Farxiga] 10 mg PO DAILY 08/04/19 Docusate Sodium [Colace 100 mg Capsule] 300 mg PO DAILY 11/14/19 Pantoprazole Sodium [Protonix [address] Tablet] 20 mg PO QAM 11/14/19 Clopidogrel Bisulfate [Plavix 75 mg Tablet] 75 mg PO DAILY #30 tablet 11/15/19 Insulin Aspart [Novolog Flexpen] See Protocol SUBCUT AC #1 pen 11/15/19 Aspirin [Lo-Dose Aspirin EC] 81 mg PO DAILY #30 tablet. 12/10/19 Carbamazepine [Carbamazepine ER] 200 mg PO BID 01/01/20 Linaclotide [Linzess] 72 mcg PO DAILY 01/02/20 Losartan Potassium 50 mg PO DAILY 01/02/20 Pregabalin [Lyrica 50 mg Capsule] 50 mg PO DAILY 01/02/20 Atorvastatin Calcium [Lipitor 80 mg Tablet] 80 mg PO QHS 30 Days #30 tablet 01/03/20 Meclizine HCl [Antivert 25 mg Tablet] 25 mg PO Q8 10 Days #30 tablet 01/03/20 History of Present Illiness History of Present Illness: ORLY OSEI is a 59 year old female with a history of prior stroke, hypertension, insulin-dependent diabetes mellitus, hyperlipidemia, and obesity who presents with strokelike symptoms since this afternoon. She said around 230 to 3:00 this afternoon she had worsening of her baseline left-sided weakness and some worsening of her speech deficit and trouble with balance. She said she thought it was her blood sugar and she checked her blood sugar and it was low in the 50s and so she drank some juice and it came up but she was still having the deficit. She came to the ER to get checked out. Her vital signs were okay and her labs were unremarkable. A CTA of the head and neck was done which showed a stenosis in the right A1 segment of the LYNNE. A consultation was placed for the neurology service at [facility] and they recommended getting an MRI. There was some discussion about possible stenting but an MRI would be needed first. Our MRI machine is down and will not be available until Friday apparently. She does take an aspirin and Plavix at home, as well as Lipitor. She is a diabetic. She does not smoke. She says her symptoms are still present. (1) CVA (cerebral vascular accident) As per admitting doctor neurology service at [facility] recommended that she get this so that they can plan further treatment if indicated. She is already on aspirin and Plavix and a statin and so we will continue these. Her blood pressures are normal, but we will hold her medications and allow permissive hypertension for at least the next 24 hours. We will have her evaluated by speech therapy, Occupational Therapy, and physical therapy. She has some chronic dysarthria and so I do not know how much worse it is because I do not know her baseline, but she says is little bit worse than usual. She also has some decreased shoeblack strength on the left at least some of which is chronic, but she says it is little worse than usual. She says she does not feel like her legs are weak but that she does have trouble with her balance. (2) Diabetes mellitus Diabetic diet, will continue her home insulin regimen and cover her with a sliding scale as needed (3) HLD (hyperlipidemia) Continue statin (4) HTN (hypertension) Euvolemic. Normotensive. Resume home meds. Adjust meds as needed. Hospital Course Hospital Course: (1) TIA Chronic right sided CVA with persistent left lower extremity weakness, dysarthria vertigo. Back to baseline. CT on admission negative followed by MRI which was also negative. Patient was admitted to [facility] with stroke protocol and was start on ant iplatelets, statins and beta-blockers. PT OT ST consulted and as per the recommendation patient does not need any further rehab. Patient's atorvastatin was increased from 40 to 80 mg nightly. Was asked to resume home meds upon discharge. (2) CVA (cerebral vascular accident) History of CVA, initial impression was recurrent CVA and as per admitting doctor neurology service at [facility] recommended that she get MRI so that they can plan further treatment if indicated. Her blood pressures are normal, patient was admitted to [facility] with acute CVA protocol. (3) Diabetes mellitus Start on diabetic diet, sliding scale insulin, hypoglycemic protocol, Accu-Chek. I will ask resume home meds upon discharge. (4) HLD (hyperlipidemia) Continued statin (5) HTN (hypertension) Euvolemic. Normotensive. Resumed home meds. Adjust meds as needed. Physical Exam Vital Signs: Temp Pulse Resp BP Pulse Ox 97.8 F 72 17 122/68 96 01/03/20 16:34 01/03/20 16:34 01/03/20 16:34 01/03/20 16:00 01/03/20 16:34 General appearance: PRESENT: no acute distress, well-developed, well-nourished Head exam: PRESENT: atraumatic, normocephalic Respiratory exam: PRESENT: clear to auscultation gerardo. ABSENT: rales, rhonchi, wheezes Cardiovascular exam: PRESENT: RRR. ABSENT: diastolic murmur, rubs, systolic murmur GI/Abdominal exam: PRESENT: normal bowel sounds, soft. ABSENT: distended, guarding, mass, organolmegaly, rebound, tenderness Neurological exam: PRESENT: alert, awake, oriented to person, oriented to place, oriented to time, oriented to situation, CN II-XII grossly intact - Mild right facial droop, chronic. Mild dysarthria. Chronic., motor sensory deficit - Left lower extremity strength 3/5, chronic. Results Laboratory Results: WBC 5.5 10^3/uL (4.0-10.5) 01/02/20 11:15 RBC 4.71 10^6/uL (3.72-5.28) 01/02/20 11:15 Hgb 13.1 g/dL (12.0-15.5) 01/02/20 11:15 Hct 38.8 % (36.0-47.0) 01/02/20 11:15 MCV 82 fl (80-97) 01/02/20 11:15 MCH 27.9 pg (27.0-33.4) 01/02/20 11:15 MCHC 33.8 g/dL (32.0-36.0) 01/02/20 11:15 RDW 14.6 % (11.5-14.0) H 01/02/20 11:15 Plt Count 218 10^3/uL (150-450) 01/02/20 11:15 Lymph % (Auto) 21.7 % (13-45) 01/01/20 15:46 [place] % (Auto) 8.7 % (3-13) 01/01/20 15:46 Eos % (Auto) 3.9 % (0-6) 01/01/20 15:46 Baso % (Auto) 0.8 % (0-2) 01/01/20 15:46 Absolute Neuts (auto) 4.7 10^3/uL (1.7-8.2) 01/01/20 15:46 Absolute Lymphs (auto) 1.6 10^3/uL (0.5-4.7) 01/01/20 15:46 Absolute Monos (auto) 0.6 10^3/uL (0.1-1.4) 01/01/20 15:46 Absolute Eos (auto) 0.3 10^3/uL (0.0-0.6) 01/01/20 15:46 Absolute Basos (auto) 0.1 10^3/uL (0.0-0.2) 01/01/20 15:46 Seg Neutrophils % 64.9 % (42-78) 01/01/20 15:46 PT 12.6 SEC (11.4-15.4) 01/01/20 15:46 INR 0.92 01/01/20 15:46 APTT 29.4 SEC (23.5-35.8) 01/01/20 15:46 Sodium 138.4 mmol/L (137-145) 01/02/20 11:15 Potassium 4.5 mmol/L (3.6-5.0) 01/02/20 11:15 Chloride 104 mmol/L (98-107) 01/02/20 11:15 Carbon Dioxide 29 mmol/L (22-30) 01/02/20 11:15 Anion Gap 5 (5-19) 01/02/20 11:15 BUN 16 mg/dL (7-20) 01/02/20 11:15 Creatinine 0.62 mg/dL (0.52-1.25) 01/02/20 11:15 Est GFR ( Amer) > 60 (>60) 01/02/20 11:15 Est GFR (MDRD) Non-Af > 60 (>60) 01/02/20 11:15 Glucose 156 mg/dL (75-110) H 01/02/20 11:15 POC Glucose 182 mg/dL (70-110) H 01/03/20 16:31 Calcium 9.2 mg/dL (8.4-10.2) 01/02/20 11:15 Total Bilirubin 0.4 mg/dL (0.2-1.3) 01/01/20 15:46 Direct Bilirubin 0.1 mg/dL (0.0-0.4) 01/01/20 15:46 Neonat Total Bilirubin Not Reportable 01/01/20 15:46 Neonat Direct Bilirubin Not Reportable 01/01/20 15:46 Neonat Indirect Bili Not Reportable 01/01/20 15:46 AST 27 U/L (14-36) 01/01/20 15:46 ALT 26 U/L (<35) 01/01/20 15:46 Alkaline Phosphatase 79 U/L (38-126) 01/01/20 15:46 Creatine Kinase 54 U/L (30-135) 01/01/20 15:46 CK-MB (CK-2) 1.46 ng/mL (<4.55) 01/01/20 15:46 Troponin I < 0.012 ng/mL 01/01/20 19:01 Total Protein 7.4 g/dL (6.3-8.2) 01/01/20 15:46 Albumin 4.4 g/dL (3.5-5.0) 01/01/20 15:46 Triglycerides 90 mg/dL (<150) 01/02/20 11:15 Cholesterol 164.12 mg/dL (0-200) 01/02/20 11:15 LDL Cholesterol Direct 81 mg/dL (<100) 01/02/20 11:15 VLDL Cholesterol 18.0 mg/dL (10-31) 01/02/20 11:15 HDL Cholesterol 62 mg/dL (>40) 01/02/20 11:15 Urine Color YELLOW 01/01/20 16:20 Urine Appearance SLIGHTLY-CLOUDY 01/01/20 16:20 Urine pH 5.0 (5.0-9.0) 01/01/20 16:20 Ur Specific [place] 1.036 01/01/20 16:20 Urine Protein NEGATIVE mg/dL (NEGATIVE) 01/01/20 16:20 Urine Glucose (UA) >=500 mg/dL (NEGATIVE) H 01/01/20 16:20 Urine Ketones NEGATIVE mg/dL (NEGATIVE) 01/01/20 16:20 Urine Blood MODERATE (NEGATIVE) H 01/01/20 16:20 Urine Nitrite (Reflex) NEGATIVE (NEGATIVE) 01/01/20 16:20 Urine Bilirubin NEGATIVE (NEGATIVE) 01/01/20 16:20 Urine Urobilinogen NEGATIVE mg/dL (<2.0) 01/01/20 16:20 Leukocyte Esterase Rfl TRACE (NEGATIVE) H 01/01/20 16:20 Urine RBC (Auto) 2 /HPF 01/01/20 16:20 Urine WBC (Reflex) 8 /HPF 01/01/20 16:20 Squamous Epi Cells Auto 1 /HPF 01/01/20 16:20 Calcium Oxalate Cr Auto FEW /HPF 01/01/20 16:20 Urine Mucus (Auto) RARE /LPF 01/01/20 16:20 Urine Ascorbic Acid NEGATIVE (NEGATIVE) 01/01/20 16:20 01/01/20 01/01/20 15:46 19:01 CK-MB (CK-2) 1.46 Troponin I 0.025 < 0.012 Impressions: Chest X-Ray 01/01/20 15:56 IMPRESSION: Hypoventilated exam without evidence of acute pulmonary process. Head CT 01/01/20 15:56 IMPRESSION: NO ACUTE INTRACRANIAL FINDINGS. EVIDENCE OF ACUTE STROKE: NO. Head CTA 01/01/20 15:56 IMPRESSION: There is new moderate stenosis -stippling in the right A1 segment of the anterior cerebral artery, this is seen best on the axial series image number 97, this could reflect new atherosclerotic disease or possible focal vasculitis. Neck CTA 01/01/20 15:56 IMPRESSION: There is new moderate stenosis -stippling in the right A1 segment of the anterior cerebral artery, this is seen best on the axial series image number 97, this could reflect new atherosclerotic disease or possible focal vasculitis. Head MRI 01/03/20 00:00 IMPRESSION: NORMAL MRI OF THE BRAIN WITHOUT INTRAVENOUS GADOLINIUM CONTRAST. EVIDENCE OF ACUTE STROKE: NO. Stroke Is this a Stroke Patient?: No Acute Heart Failure - Is this a Heart Failure Patient?: No
== END 2020-01-03 17:05 | disposition home or self-care (01) ==
LOC: ER 15:36 → EH 21:11 → INTOOBSV 21:11 → 3S 22:20
PROVIDERS: ADMIT Family Medicine; ATTEND Internal Medicine
DX: I63.521 Cerebral infarction due to unspecified occlusion or stenosis of right anterior cerebral artery (principal); I10 Essential (primary) hypertension; E78.5 Hyperlipidemia, unspecified; E66.9 Obesity, unspecified; J45.909 Unspecified asthma, uncomplicated; G43.909 Migraine, unspecified, not intractable, without status migrainosus; K21.9 Gastro-esophageal reflux disease without esophagitis; M79.7 Fibromyalgia; F32.9 Major depressive disorder, single episode, unspecified; E11.49 Type 2 diabetes mellitus with other diabetic neurological complication; R29.810 Facial weakness; I69.354 Hemiplegia and hemiparesis following cerebral infarction affecting left non-dominant side; I69.322 Dysarthria following cerebral infarction; R41.0 Disorientation, unspecified; Z79.82 Long term (current) use of aspirin; Z79.899 Other long term (current) drug therapy; Z79.02 Long term (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 of antithrombotics/antiplatelets; Z85.41 Personal history of malignant neoplasm of cervix uteri; Z79.4 Long term (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 of insulin; Z88.0 Allergy status to penicillin; Z88.2 Allergy status to sulfonamides; Z88.8 Allergy status to other drugs, medicaments and biological substances; Z88.6 Allergy status to analgesic agent; Z88.1 Allergy status to other antibiotic agents; Z88.3 Allergy status to other anti-infective agents; Z91.040 Latex allergy status; Z83.3 Family history of diabetes mellitus; Z82.3 Family history of stroke; Z82.61 Family history of arthritis; Z80.9 Family history of malignant neoplasm, unspecified; Z83.49 Family history of other endocrine, nutritional and metabolic diseases; Z82.49 Family history of ischemic heart disease and other diseases of the circulatory system
CPT/HCPCS: 93005; 99285; 96365; 36415 ×2; 82553; 82962 ×3; 82550; 85025; 85027; 85610; 85730; 80048; 80053; 81001; 84484; 80061; 70551; 71045; 70450; 70496; 70498; 93010; 97110; 97116; 97162; 92523; 97535; 97165; G0378 ×4; J1815 ×4; J1644 ×3; J3490 ×5; J2060; J2405; J0131

== ENCOUNTER 2020-02-09 18:49 | Emergency (ER) | payer OTHER ==
--- NOTE | 2020-02-09 20:45 | ER Document Report ---
ED General - General Chief Complaint: Shortness Of Breath Stated Complaint: SHORTNESS OF BREACH,COUGH Time Seen by Provider: 02/09/20 19:54 Primary Care Provider: KATERYNA GONSALEZ MD [Primary Care Provider] - Follow up as needed TRAVEL OUTSIDE OF THE [place] IN LAST 30 DAYS: No - HPI Onset: Other - 2 weeks ago Onset/Duration: Gradual Associated symptoms: Nonproductive cough, Headache, Shortness of breath. denies: Diarrhea, Nausea, Vomiting, Sore throat, Sweating, Weakness Exacerbated by: Coughing Notes: Patient is a 60-year-old female with a past medical history of diabetes who presents with cough and shortness of breath. Patient states she has had a cough for 2 weeks. She was placed on Tessalon Perles by her doctor. She denies having any relief with the cough medicine. Today, she states she has had wheezing. She also has some pleuritic pain when she coughs. Patient denies any fevers or chills. No urinary symptoms. She states she developed a headache a c ouple of hours ago. She also states she has some pain in her left ear. Denies being around anyone with positive COVID-19. No nausea or vomiting. - Related Data Allergies/Adverse Reactions: Penicillins Allergy (Unknown, Verified 01/01/20 17:51) cephalexin monohydrate [From Keflex] Allergy (Verified 01/01/20 17:51) ciprofloxacin [From Cipro] Allergy (Verified 01/01/20 17:51) codeine Allergy (Verified 01/01/20 17:51) latex [Latex] Allergy (Verified 01/01/20 17:51) metformin Allergy (Verified 01/01/20 17:51) nitrofurantoin macrocrystalline [From Macrodantin] Allergy (Verified 01/01/20 17:51) penicillin G Allergy (Verified 01/01/20 17:51) Sulfa (Sulfonamide Antibiotics) Allergy (Verified 01/01/20 17:51) tetracycline [Tetracycline] Allergy (Verified 01/01/20 17:51) nitroglycerin [From Nitrostat] Adverse Reaction (Verified 01/01/20 17:51) Past Medical History - General Information source: Patient - Social History Smoking Status: Unknown if Ever Smoked Family History: Arthritis, CVA, DM, Hyperlipidemia, Hypertension, Malignancy, Thyroid Disfunction - Past Medical History Cardiac Medical History: Reports: Hx Hypercholesterolemia, Hx Hypertension Pulmonary Medical History: Reports: Hx Asthma Neurological Medical History: Reports: Hx Cerebrovascular Accident, Hx Migraine Endocrine Medical History: Reports: Hx Diabetes Mellitus Type 1, Hx Diabetes Mellitus Type 2. Denies: Hx Hyperthyroidism, Hx Hypothyroidism Renal/ Medical History: Denies: Hx Peritoneal Dialysis Malignancy Medical History: Reports: Hx Cervical Cancer GI Medical History: Reports: Hx Gastroesophageal Reflux Disease. Denies: Hx Cirrhosis, Hx Hepatitis Musculoskeletal Medical History: Reports Hx Arthritis, Reports Hx Fibromyalgia, Reports Hx Musculoskeletal Deformity, Reports Hx Musculoskeletal Trauma Psychiatric Medical History: Reports: Hx Anxiety, Hx Depression Traumatic Medical History: Reports: Hx Fractures - Facial fractures bilateral toes elbow and left knee Infectious Medical History: Denies: Hx Hepatitis Past Surgical History: Reports: Hx Abdominal Surgery - hernia, Hx Section - 2, Hx Cholecystectomy, Hx Herniorrhaphy, Hx Hysterectomy, Hx Orthopedic Surgery - bilateral toes and elbows left knee twice, Hx Tubal Ligation, Other - Ventral hernia and pseudocyst removal. Denies: Hx Appendectomy - Immunizations Immunizations up to date: Yes Hx Diphtheria, Pertussis, Tetanus Vaccination: Yes Review of Systems - Review of Systems Notes: CONSTITUTIONAL: No fever, fatigue or weight loss. SKIN: No rash. HENT: No congestion or sore throat. Positive for left ear pain. EYES: No recent vision problems or eye pain. ENDOCRINE: No polyuria or polydipsia. CARDIOVASCULAR: No chest pain or edema. RESPIRATORY: Positive for cough, shortness of breath and wheezing. GASTROINTESTINAL: No abdominal pain, nausea, vomiting, bloody stools or diarrhea. GENITOURINARY: No dysuria. MUSCULOSKELETAL: No joint pain or swelling. LYMPHATIC: No swollen glands. NEUROLOGIC: No seizures. No focal weakness or sensory changes. Positive for he adache. HEMATOLOGIC: No unusual bruising or bleeding. PSYCHIATRIC: No depression or anxiety. Physical Exam - Vital signs Vitals: Temp Pulse Resp BP Pulse Ox 98.7 F 88 20 134/79 H 97 02/09/20 19:29 02/09/20 19:29 02/09/20 19:29 02/09/20 19:29 02/09/20 19:29 Interpretation: Normal Notes: VITAL SIGNS: Within normal limits. GENERAL: No acute distress, non-toxic appearance. HEAD: Normal with no signs of head trauma. EYES: PERRLA, EOMI, conjunctiva normal, no discharge. EARS: Hearing grossly intact. Bilateral tympanic membranes appear normal. NOSE: Normal. NECK: Normal range of motion, no tenderness, supple, no lymphadenopathy, No adenopathy, no JVD. CHEST: Clear breath sounds bilaterally. CARDIAC: Regular rate and rhythm. S1 and S2, without murmurs, gallops, or rubs. VASCULAR: No Edema. ABDOMEN: Normal and soft with no tenderness, no masses or pulsatile masses. GENITOURINARY: Normal, No tenderness. LYMPATHTIC: No lymphadenopathy noted. MUSCULOSKELETAL: Good range of motion of all major joints. NEUROLOGICAL: [Alert and oriented x 3. No focal sensory or strength deficits. Speech normal. Follows commands appropriately.] PSYCHIATRIC: Normal Affect, judgement and mood. SKIN: Normal appearance with no rashes or lesions. - Notes Notes: VITAL SIGNS: Within normal limits. GENERAL: No acute distress, non-toxic appearance. HEAD: Normal with no signs of head trauma. EYES: EOMI, conjunctiva normal, no discharge. EARS: Hearing grossly intact. Bilateral tympanic membranes appear normal. No erythema or discharge in ear canals. NOSE: Normal. NECK: Normal range of motion, no tenderness, supple, no lymphadenopathy, No adenopathy, no JVD. CHEST: Clear breath sounds bilaterally. No wheezes, rales, or rhonchi. CARDIAC: Regular rate and rhythm. S1 and S2, without murmurs, gallops, or rubs. VASCULAR: No Edema. ABDOMEN: Normal and soft with no tenderness, no masses or pulsatile masses. GENITOURINARY: Normal, No tenderness LYMPATHTIC: No lymphadenopathy noted. MUSCULOSKELETAL: Good range of motion of all major joints. Extremities without clubbing, cyanosis or edema. Brace on left lower leg. NEUROLOGICAL: Alert and oriented x 3. No focal sensory or strength deficits. Speech normal. Follows commands appropriately. No focal neurological deficits. PSYCHIATRIC: Normal Affect, judgement and mood. SKIN: Normal appearance with no rashes or lesions. Course - Re-evaluation Re-evalutation: 02/10/20 02:38 On re-evaluation, patient is resting comfortably. Patient's imaging was unremarkable. There is no evidence of pneumonia or PE. Patient had 2- troponins and EKG does not appear acute. She received Tylenol for her headache. Possibly, this could be a viral syndrome or bronchitis. She was tested for COVID-19 and instructed to isolate until she is called with the results. Era ent verbalized understanding. Vitals have been normal and she ambulated with a normal pulse ox. Patient was given prescriptions for an inhaler as well as a short course of prednisone for the possible bronchitis. She was instructed to follow-up with her PCP this week. I also told her to monitor her blood sugars as the prednisone may increase this temporarily. Patient verbalized understanding of all instructions. She was given strict return precautions including shortness of breath, fever, or worsening symptoms. - Vital Signs Vital signs: Temp Pulse Resp BP Pulse Ox 97.7 F 79 20 129/89 H 97 02/10/20 01:44 02/10/20 01:44 02/10/20 01:44 02/10/20 01:44 02/10/20 01:44 - Laboratory Result Diagrams: 02/09/20 20:30 02/09/20 20:30 Laboratory results interpreted by me: 02/09/20 02/09/20 02/09/20 20:15 20:30 20:30 RDW 15.2 H Carbon Dioxide 32 H Glucose 143 H Urine Glucose (UA) >=500 H Urine Ascorbic Acid 20 H - Diagnostic Test Radiology reviewed: Image reviewed, Reports reviewed - EKG Interpretation by Ga EKG shows normal: Sinus rhythm Rate: Normal When compared to previous EKG there are: Previous EKG unavailable Additional EKG results interpreted by me: 02/10/20 02:41 Sinus rhythm at a rate of 79. QTc 441. No acute ST changes. No previous EKG available for comparison. Discharge - Discharge Clinical Impression: Cough Dyspnea Qualifiers: Dyspnea type: unspecified Qualified Code(s): R06.00 - Dyspnea, unspecified Disposition: HOME, SELF-CARE Instructions: Cough Suppressant & Expectorant Medications Additional Instructions: You have been tested for COVID-19. You must isolate until you are called with a negative result. Please return for any worsening shortness of breath, fevers, worsening symptoms. You will be started on a prednisone course. Please monitor you blood sugars while taking it as they can increase. Please follow-up with your family doctor. Prescriptions: Albuterol Sulfate [Albuterol Sulfate Hfa] 2 puff IH Q6H PRN #1 [id number] PRN Reason: Prednisone [Deltasone 20 mg Tablet] 40 mg PO DAILY 3 Days #6 tablet Referrals: KATERYNA GONSALEZ MD [Primary Care Provider] - Follow up as needed
--- NOTE | 2020-02-09 20:50 | EKG REPORT ---
SEVERITY:- NORMAL ECG - SINUS RHYTHM : Confirmed by: Kleber Dao MD 09-Feb-2020 20:50:13
[2020-02-09 20:51] LABS: ABSOLUTE BASOPHILS # (AUTO) 0.1 10^3/uL (0.0-0.2); ABSOLUTE EOSINOPHILS # (AUTO) 0.4 10^3/uL (0.0-0.6); ABSOLUTE LYMPHOCYTES (AUTO) 1.8 10^3/uL (0.5-4.7); ABSOLUTE MONOCYTES (AUTO) 0.7 10^3/uL (0.1-1.4); ABSOLUTE NEUT (AUTO) 4.3 10^3/uL (1.7-8.2); BASOPHILS % (AUTO) 0.8 % (0-2); EOSINOPHILS % (AUTO) 5.7 % (0-6); HEMATOCRIT 41.7 % (36.0-47.0); HEMOGLOBIN 14.1 g/dL (12.0-15.5); LYMPHOCYTES % (AUTO) 24.2 % (13-45); MEAN CORPUSCULAR HEMOGLOBIN 27.7 pg (27.0-33.4); MEAN CORPUSCULAR HGB CONC 33.9 g/dL (32.0-36.0); MEAN CORPUSCULAR VOLUME 82 fl (80-97); MONOCYTES % (AUTO) 9.9 % (3-13); PLATELET COUNT 249 10^3/uL (150-450); RED BLOOD COUNT 5.11 10^6/uL (3.72-5.28); RED CELL DISTRIBUTION WIDTH 15.2 % (11.5-14.0); SEGMENTED NEUTROPHILS % (AUTO) 59.4 % (42-78); TOTAL CELLS COUNTED % (AUTO) 100 %; WHITE BLOOD COUNT 7.3 10^3/uL (4.0-10.5)
[2020-02-09 21:00] LABS: APPEARANCE,URINE CLEAR; BILIRUBIN,URINE NEGATIVE (NEGATIVE); COLOR,URINE YELLOW; GLUCOSE, URINE >=500 mg/dL (NEGATIVE); KETONES,URINE NEGATIVE (NEGATIVE); LEUKOCYTE ESTERASE,URINE NEGATIVE (NEGATIVE); NITRITE,URINE NEGATIVE (NEGATIVE); PROTEIN,URINE NEGATIVE (NEGATIVE); URINE SPECIFIC GRAVITY 1.032; UROBILINOGEN,URINE NEGATIVE mg/dL (<2.0)
[2020-02-09 21:03] LABS: ALBUMIN 4.6 g/dL (3.5-5.0); ALKALINE PHOSPHATASE 69 U/L (38-126); ANION GAP 8 (5-19); ASPARTATE AMINO TRANSFERASE 26 U/L (14-36); BILIRUBIN,DIRECT 0.4 mg/dL (0.0-0.4); BILIRUBIN,TOTAL 0.5 mg/dL (0.2-1.3); BLOOD UREA NITROGEN 17 mg/dL (7-20); CALCIUM 9.5 mg/dL (8.4-10.2); CARBON DIOXIDE 32 mmol/L (22-30); CHLORIDE 99 mmol/L (98-107); GLUCOSE 143 mg/dL (75-110); POTASSIUM 4.3 mmol/L (3.6-5.0); TOTAL PROTEIN 7.4 g/dL (6.3-8.2)
--- NOTE | 2020-02-09 21:20 | RADIOLOGY REPORT (SQ) ---
EXAM DESCRIPTION: XR CHEST 1 VIEW COMPLETED DATE/TME: 02/09/2020 20:13 CLINICAL HISTORY: 60 years, Female, cough COMPARISON: None. NUMBER OF VIEWS: TECHNIQUE: LIMITATIONS: None. FINDINGS: No evidence of pulmonary infiltrate or pleural effusion. The heart and mediastinum are unremarkable. Pulmonary vascularity appears normal. There are atherosclerotic changes and tortuosity of the thoracic aorta. There is a left-sided cardiac loop recorder. IMPRESSION: No acute finding. copyright 2010 [employer]- All Rights Reserved
--- NOTE | 2020-02-09 21:43 | RADIOLOGY REPORT (SQ) ---
INDICATION: headache. COMPARISON: January 01, 2020 CORRELATION: MRI January 03, 2020 TECHNIQUE: Noncontrast spiral axial CT images were obtained from the skull base to vertex. This exam was performed according to our departmental dose-optimization program, which includes automated exposure control, adjustment of the mA and/or kV according to patient size and/or use of iterative reconstruction techniques. FINDINGS: There is no evidence of acute intracranial hemorrhage, midline shift, mass effect or mass lesion. Mason-white differentiation is normal. There is no evidence of acute large territory infarct. Ventricles and extracerebral spaces are within normal limits, for age. The visualized paranasal sinuses are grossly clear. The orbits and eyeballs are unremarkable. The mastoid air cells are clear. Skull base and calvarium appear intact. IMPRESSION: No acute intracranial process is identified. The cause of the patient's headache is not identified on this examination.
[2020-02-09] MEDS ORDERED: ACETAMINOPHEN 325 MG TABLET PO ONE (22:52)
--- NOTE | 2020-02-10 00:58 | RADIOLOGY REPORT (SQ) ---
CT angiogram chest with contrast on 02/10/2020 at 12:32 AM CLINICAL INDICATION: Cough, shortness of breath TECHNIQUE: Multiple axial images are obtained throughout the chest following the administration of IV contrast. Computer generated 3D reconstructions/MIPS were performed. This exam was performed according to our departmental dose-optimization program, which includes automated exposure control, adjustment of the mA and/or kV according to patient size and/or use of iterative reconstruction technique. Total DLP is 755.14 mGy*cm. COMPARISON: 09/14/2018 FINDINGS: There is no thoracic aortic aneurysm or dissection. Limited visualized upper abdomen is unremarkable. There is no pleural or pericardial effusion. There are no filling defects within the pulmonary arteries to suggest pulmonary embolus. There is no thoracic adenopathy by CT size criteria. There is minimal bilateral dependent and basilar atelectasis. The lungs are otherwise clear. No bony abnormality is noted. IMPRESSION: 1. No evidence of pulmonary embolus. 2. No acute abnormality.
[2020-02-10 01:47] VITALS: BP 129/89
== END 2020-02-10 02:10 | disposition home or self-care (01) ==
LOC: ER 18:49
DX: R05 Cough (principal); J45.909 Unspecified asthma, uncomplicated; R06.02 Shortness of breath; R51 Headache; H92.02 Otalgia, left ear; E11.9 Type 2 diabetes mellitus without complications; I10 Essential (primary) hypertension; Z85.41 Personal history of malignant neoplasm of cervix uteri; Z88.0 Allergy status to penicillin; Z88.1 Allergy status to other antibiotic agents; Z88.6 Allergy status to analgesic agent; Z88.5 Allergy status to narcotic agent; Z91.040 Latex allergy status; Z88.8 Allergy status to other drugs, medicaments and biological substances; Z88.2 Allergy status to sulfonamides; Z20.828 Contact with and (suspected) exposure to other viral communicable diseases
CPT/HCPCS: 93005; 99285; 36415; 87086; 83735; 85025; 87635; 87088; 80053; 81001; 84484; 71045; 70450; 71275; 93010; C9803

== ENCOUNTER 2020-03-13 01:35 | Emergency (ER) | payer OTHER ==
--- NOTE | 2020-03-13 01:52 | ER Document Report ---
ED Medical Screen (RME) - General Stated Complaint: HEADACHE/NAUSEA/SLURRED SPEECH Primary Care Provider: KATERYNA GONSALEZ MD [Primary Care Provider] - Follow up as needed Notes: Is a 60-year-old white female on Plavix with a history of tachycardia and prior CVA in the occipital region who presents to the emergency department the chief complaint of slurred speech and trouble walking. She states a few days ago she started feeling dizzy on and off. She states tonight around 11:00 she started having slurred speech and difficulty ambulating. Denies any visual disturbances or chest pain. Admits to some trouble with the right arm and left leg. Stroke alert called. Patient taken directly to CT. I have treated and performed a rapid initial assessment of this patient. A comprehensive ED assessment and evaluation of the patient, analysis of test results and completion of medical decision making process will be conducted by additional ED providers. PHYSICAL EXAMINATION: GENERAL: Well-appearing, well-nourished and in no acute distress. A&Ox4. Answ ers questions appropriately. Neuro: Slurred speech. No facial droop. No pronator drift. TRAVEL OUTSIDE OF THE [place] IN LAST 30 DAYS: No - Related Data Allergies/Adverse Reactions: Penicillins Allergy (Unknown, Verified 01/01/20 17:51) cephalexin monohydrate [From Keflex] Allergy (Verified 01/01/20 17:51) ciprofloxacin [From Cipro] Allergy (Verified 01/01/20 17:51) codeine Allergy (Verified 01/01/20 17:51) latex [Latex] Allergy (Verified 01/01/20 17:51) metformin Allergy (Verified 01/01/20 17:51) nitrofurantoin macrocrystalline [From Macrodantin] Allergy (Verified 01/01/20 17:51) penicillin G Allergy (Verified 01/01/20 17:51) Sulfa (Sulfonamide Antibiotics) Allergy (Verified 01/01/20 17:51) tetracycline [Tetracycline] Allergy (Verified 01/01/20 17:51) nitroglycerin [From Nitrostat] Adverse Reaction (Verified 01/01/20 17:51) Past Medical History - Social History Family history: Reviewed & Not Pertinent - Past Medical History Cardiac Medical History: Reports: Hx Hypercholesterolemia, Hx Hypertension Pulmonary Medical History: Reports: Hx Asthma Neurological Medical History: Reports: Hx Cerebrovascular Accident, Hx Migraine Endocrine Medical History: Reports: Hx Diabetes Mellitus Type 1, Hx Diabetes Mellitus Type 2. Denies: Hx Hyperthyroidism, Hx Hypothyroidism Renal/ Medical History: Denies: Hx Peritoneal Dialysis Malignancy Medical History: Reports: Hx Cervical Cancer GI Medical History: Reports: Hx Gastroesophageal Reflux Disease. Denies: Hx Cirrhosis, Hx Hepatitis Musculoskeltal Medical History: Reports Hx Arthritis, Reports Hx Fibromyalgia, Reports Hx Musculoskeletal Deformity, Reports Hx Musculoskeletal Trauma Psychiatric Medical History: Reports: Hx Anxiety, Hx Depression Traumatic Medical History: Reports: Hx Fractures - Facial fractures bilateral toes elbow and left knee Infectious Medical History: Denies: Hx Hepatitis Past Surgical History: Reports: Hx Abdominal Surgery - hernia, Hx Section - 2, Hx Cholecystectomy, Hx Herniorrhaphy, Hx Hysterectomy, Hx Orthopedic Surgery - bilateral toes and elbows left knee twice, Hx Tubal Ligation, Other - Ventral hernia and pseudocyst removal. Denies: Hx Appendectomy - Immunizations Immunizations up to date: Yes Hx Diphtheria, Pertussis, Tetanus Vaccination: Yes Physical Exam - Vital signs Vitals: Temp Pulse Resp BP Pulse Ox 98.4 F 104 H 18 123/82 96 03/13/20 01:45 03/13/20 01:45 03/13/20 01:45 03/13/20 01:45 03/13/20 01:45 Course - Vital Signs Vital signs: Temp Pulse Resp BP Pulse Ox 98.4 F 104 H 18 123/82 96 03/13/20 01:45 03/13/20 01:45 03/13/20 01:45 03/13/20 01:45 03/13/20 01:45 Doctor's Discharge - Discharge Referrals: KATERYNA GONSALEZ MD [Primary Care Provider] - Follow up as needed
[2020-03-13 02:21] LABS: ABSOLUTE EOSINOPHILS # (AUTO) 0.2 10^3/uL (0.0-0.6); ABSOLUTE LYMPHOCYTES (AUTO) 1.6 10^3/uL (0.5-4.7); ABSOLUTE MONOCYTES (AUTO) 0.6 10^3/uL (0.1-1.4); ABSOLUTE NEUT (AUTO) 4.1 10^3/uL (1.7-8.2); BASOPHILS % (AUTO) 0.6 % (0-2); EOSINOPHILS % (AUTO) 2.3 % (0-6); HEMATOCRIT 42.2 % (36.0-47.0); HEMOGLOBIN 14.6 g/dL (12.0-15.5); LYMPHOCYTES % (AUTO) 24.7 % (13-45); MEAN CORPUSCULAR HEMOGLOBIN 28.5 pg (27.0-33.4); MEAN CORPUSCULAR HGB CONC 34.6 g/dL (32.0-36.0); MEAN CORPUSCULAR VOLUME 82 fl (80-97); MONOCYTES % (AUTO) 9.7 % (3-13); PLATELET COUNT 204 10^3/uL (150-450); RED BLOOD COUNT 5.14 10^6/uL (3.72-5.28); RED CELL DISTRIBUTION WIDTH 15.5 % (11.5-14.0); SEGMENTED NEUTROPHILS % (AUTO) 62.7 % (42-78); TOTAL CELLS COUNTED % (AUTO) 100 %; WHITE BLOOD COUNT 6.6 10^3/uL (4.0-10.5)
--- NOTE | 2020-03-13 02:23 | RADIOLOGY REPORT (SQ) ---
EXAM DESCRIPTION: XR CHEST 1 VIEW COMPLETED DATE/TME: 03/13/2020 01:50 CLINICAL HISTORY: 60 years, Female, stroke protocol COMPARISON: 02/09/2020 NUMBER OF VIEWS: One TECHNIQUE: AP view of the chest LIMITATIONS: None. FINDINGS: Lungs are clear. The heart is normal in size. No pneumothorax or pleural effusion. Left chest wall loop recorder. Bones are unremarkable. IMPRESSION: No acute cardiopulmonary abnormality copyright 2010 [employer]- All Rights Reserved
[2020-03-13 02:25] LABS: INTERNATIONAL RATION (INR) 0.83; PROTHROMBIN TIME 11.6 SEC (11.4-15.4)
--- NOTE | 2020-03-13 02:25 | RADIOLOGY REPORT (SQ) ---
EXAM DESCRIPTION: CT head without contrast CLINICAL HISTORY: 60 years Female, possible stroke COMPARISON: CT head 02/09/2020 TECHNIQUE: Axial images of the head were performed without the use of intravenous contrast, with sagittal and coronal reformatted images. This exam was performed according to our departmental dose-optimization program which includes use of Automated Exposure Control, adjustment of the mA and/or kV according to patient size and/or use of iterative reconstruction technique. FINDINGS: No evidence of acute hemorrhage or infarct. No evidence of mass or hydrocephalus. There is a possible old lacunar infarct in the medial right temporal lobe. There is no significant change, as compared with the prior CT scan. IMPRESSION: No acute finding. Brain MRI would be helpful to evaluate for acute infarction, if clinically warranted.
[2020-03-13 02:26] LABS: PARTIAL THROMBOPLASTIN TIME 28.6 SEC (23.5-35.8)
[2020-03-13 02:49] LABS: ALBUMIN 4.7 g/dL (3.5-5.0); ALKALINE PHOSPHATASE 79 U/L (38-126); ANION GAP 14 (5-19); ASPARTATE AMINO TRANSFERASE 28 U/L (14-36); BILIRUBIN,DIRECT 0.4 mg/dL (0.0-0.4); BILIRUBIN,TOTAL 0.6 mg/dL (0.2-1.3); BLOOD UREA NITROGEN 14 mg/dL (7-20); CALCIUM 9.1 mg/dL (8.4-10.2); CARBON DIOXIDE 25 mmol/L (22-30); CHLORIDE 100 mmol/L (98-107); CREATINE KINASE 57 U/L (30-135); GLUCOSE 326 mg/dL (75-110); POTASSIUM 4.1 mmol/L (3.6-5.0); TOTAL PROTEIN 7.5 g/dL (6.3-8.2)
[2020-03-13 02:51] LABS: APPEARANCE,URINE CLEAR; BILIRUBIN,URINE NEGATIVE (NEGATIVE); COLOR,URINE STRAW; GLUCOSE, URINE >=500 mg/dL (NEGATIVE); KETONES,URINE NEGATIVE (NEGATIVE); LEUKOCYTE ESTERASE,URINE TRACE (NEGATIVE); NITRITE,URINE NEGATIVE (NEGATIVE); PROTEIN,URINE NEGATIVE (NEGATIVE); UROBILINOGEN,URINE NEGATIVE mg/dL (<2.0)
[2020-03-13 03:01] LABS: CREATINE KINASE MB 1.43 ng/mL (<4.55)
[2020-03-13] MEDS ORDERED: NORMAL SALINE 1000 ML 1,000 ML IV ONE (03:19)
[2020-03-13 03:26] LABS: TROPONIN I < 0.012 ng/mL
[2020-03-13] MEDS ORDERED: ACETAMINOPHEN 325 MG TABLET PO ONE (03:47)
[2020-03-13] MEDS ORDERED: ONDANSETRON HCL INJ/PF 4 MG/2 ML SDV IV ONE ×2 (03:48→08:37)
--- NOTE | 2020-03-13 04:19 | ER Document Report ---
ED Neuro Symptoms/Deficit - General Chief Complaint: S/S of Possible Stroke Stated Complaint: HEADACHE/NAUSEA/SLURRED SPEECH Time Seen by Provider: 03/13/20 02:12 Primary Care Provider: KATERYNA GONSALEZ MD [Primary Care Provider] - Follow up as needed Information source: Patient, Emergency Med Personnel Notes: This is a 60-year-old female with a reported history of prior CVA and difficulty with balance and walking who presents to the emergency department for evaluation of slurred speech that has been present since 2200 hrs. on 03/11/2020 and has also had problems with associated difficulty with balance and walking for "several days." Patient is also complaining of some dizziness, nausea, vomiting and headache. Patient states that her headache is frontal and describes it as a dull pain, rating it as a 2 out of 5. Patient states nothing seems to exacerbate the headache and nothing seems to relieve it. Patient states her nausea and vomiting is exacerbated by sudden movement and is mildly relieved by staying still. Patient states her difficulty with balance and gait is e xacerbated by trying to stand or walk and is slightly alleviated by laying still in bed. Patient denies fever, chills, visual changes, chest pain, shortness of breath, abdominal pain, dysuria. Patient states she does have some weakness in her left upper and lower extremities. Patient denies loss of sense of taste or smell. Patient states that she has no prior history of COVID infection or know ledge of exposure to COVID positive persons are persons under investigation for COVID. TRAVEL OUTSIDE OF THE [place] IN LAST 30 DAYS: No - HPI Patient complains to provider of: Difficulty walking, Speech Impairment, Weakness Onset: Other - See above Awoke with symptoms: No Exact time of onset: Slurred speech started approximately 36 hours ago Symptoms are: Constant Duration: Continues in ED Quality of pain: Other - Mild headache Severity: Mild Pain Level: 2 Context: Other - Headache Loss of consciousness: No loss of consciousness Was STROKE ALERT Called: Yes Baseline Cognitive: Alert, oriented X 3 Baseline Gait: Walks w/o assistance Alert To: Name/Voice Patient Orientation: Person, Place, Events New weakness: LUE, LLE Altered sensation: LUE, LLE Decreased ability to stand/walk: Off balance Impaired speech/swallowing: Difficult Associated symptoms: Headache, Vomiting Similar symptoms previously: Yes - Related Data Allergies/Adverse Reactions: Penicillins Allergy (Unknown, Verified 01/01/20 17:51) cephalexin monohydrate [From Keflex] Allergy (Verified 01/01/20 17:51) ciprofloxacin [From Cipro] Allergy (Verified 01/01/20 17:51) codeine Allergy (Verified 01/01/20 17:51) latex [Latex] Allergy (Verified 01/01/20 17:51) metformin Allergy (Verified 01/01/20 17:51) nitrofurantoin macrocrystalline [From Macrodantin] Allergy (Verified 01/01/20 17:51) penicillin G Allergy (Verified 01/01/20 17:51) Sulfa (Sulfonamide Antibiotics) Allergy (Verified 01/01/20 17:51) tetracycline [Tetracycline] Allergy (Verified 01/01/20 17:51) nitroglycerin [From Nitrostat] Adverse Reaction (Verified 01/01/20 17:51) Past Medical History - General Information source: Patient - Social History Smoking Status: Former Smoker Chew tobacco use (# tins/day): No Frequency of alcohol use: None Drug Abuse: None Lives with: Spouse/Significant other Family History: Arthritis, CVA, DM, Hyperlipidemia, Hypertension, Malignancy, Thyroid Disfunction Patient has homicidal ideation: No - Past Medical History Cardiac Medical History: Reports: Hx Hypercholesterolemia, Hx Hypertension Pulmonary Medical History: Reports: Hx Asthma Neurological Medical History: Reports: Hx Cerebrovascular Accident, Hx Migraine Endocrine Medical History: Reports: Hx Diabetes Mellitus Type 1, Hx Diabetes Mellitus Type 2. Denies: Hx Hyperthyroidism, Hx Hypothyroidism Renal/ Medical History: Denies: Hx Peritoneal Dialysis Malignancy Medical History: Reports: Hx Cervical Cancer GI Medical History: Reports: Hx Gastroesophageal Reflux Disease. Denies: Hx Cirrhosis, Hx Hepatitis Musculoskeletal Medical History: Reports Hx Arthritis, Reports Hx Fibromyalgia, Reports Hx Musculoskeletal Deformity, Reports Hx Musculoskeletal Trauma Psychiatric Medical History: Reports: Hx Anxiety, Hx Depression Traumatic Medical History: Reports: Hx Fractures - Facial fractures bilateral toes elbow and left knee Infectious Medical History: Denies: Hx Hepatitis Past Surgical History: Reports: Hx Abdominal Surgery - hernia, Hx Section - 2, Hx Cholecystectomy, Hx Herniorrhaphy, Hx Hysterectomy, Hx Orthopedic Surgery - bilateral toes and elbows left knee twice, Hx Tubal Ligation, Other - Ventral hernia and pseudocyst removal. Denies: Hx Appendectomy - Immunizations Immunizations up to date: Yes Hx Diphtheria, Pertussis, Tetanus Vaccination: Yes Review of Systems - Review of Systems Constitutional: Weakness EENT: No symptoms reported Cardiovascular: No symptoms reported Respiratory: No symptoms reported Gastrointestinal: Nausea, Vomiting Genitourinary: denies: Dysuria Female Genitourinary: No symptoms reported Musculoskeletal: No symptoms reported Skin: No symptoms reported Hematologic/Lymphatic: No symptoms reported Neurological/Psychological: Gait changes, Headaches, Speech impairment -: Yes All other systems reviewed and negative Physical Exam - Vital signs Vitals: Temp Pulse Resp BP Pulse Ox 98.4 F 104 H 18 123/82 96 03/13/20 01:45 03/13/20 01:45 03/13/20 01:45 03/13/20 01:45 03/13/20 01:45 - Notes Notes: CONSTITUTIONAL [Vital signs reviewed, Patient appears comfortable, Alert and oriented X 3, Normal stature.] HEAD [Atraumatic, Normocephalic.] EYES [Eyes are normal to inspection, No discharge from eyes, Extraocular muscles intact, Sclera are normal, Conjunctiva are normal.] ENT Nose examination normal, Posterior pharynx normal, Mouth normal to inspection.] NECK [Normal ROM, No jugular venous distention, No meningeal signs, no carotid brui t.] RESPIRATORY CHEST [Chest is nontender, Breath sounds normal, No respiratory distress.] CARDIOVASCULAR [RRR, No murmurs, Normal S1 S2, No rub, No gallop.] ABDOMEN [Abdomen is nontender, No pulsatile masses, No other masses, Bowel sounds normal, No distension, No peritoneal signs, No hernias.] BACK [There is no CVA Tenderness, There is no tenderness to palpation, Normal inspection.] UPPER EXTREMITY Upper extremity exam is significant for positive pronator drift on the left side and 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 Patient's speech is slurred.] SKIN [Skin is warm, Skin is dry, Skin is normal color.] PSYCHIATRIC [Normal affect. ] Course - Re-evaluation Re-evalutation: 03/13/20 04:24 Results of ED MSE discussed with patient. Consultation with Dr. ongoing also discussed with patient. Recommendation for social work consult discussed with patient. All questions were answered. - Vital Signs Vital signs: Temp Pulse Resp BP Pulse Ox 98.4 F 91 24 H 140/87 H 95 03/13/20 02:00 03/13/20 03:00 03/13/20 03:01 03/13/20 03:01 03/13/20 03:01 - Laboratory Result Diagrams: 03/13/20 02:07 03/13/20 02:07 Laboratory results interpreted by me: 03/13/20 03/13/20 03/13/20 02:07 02:07 02:40 RDW 15.5 H Glucose 326 H Urine Glucose (UA) >=500 H Ur Leukocyte Esterase TRACE H - Diagnostic Test Radiology reviewed: Reports reviewed - EKG Interpretation by Me Additional EKG results interpreted by me: 03/13/20 04:25 EKG obtained 03/13/2020 at 0205 hrs. was interpreted by this MD. Findings sinus tachycardia, rate 101, normal axis, SD intervals within normal limits, P waves proceed QRS complexes, QRS complexes appear narrow, QTC is 452, there are no obvious patterns of ST segment elevation, depression or reciprocal changes present to suggest acute myocardial ischemia or infarction. When compared to prior EKG from 02/09/2020, other than some baseline artifact, the 2 EKGs appear very similar in terms of gross morphology. Impression: Sinus tachycardia with nonspecific ST segments. - Consults Dr. Mckay Time consulted: 04:11 - Dr. Mckay reviewed the patient's record and noted that the patient has already had 3 MRIs, all of which have been negative for evidence of CVA. Dr. Resendiz's recommendation is that the patient be assessed by social work for possibility of placement in a assisted living setting where she can have help with transferring and ADLs. Dr. Mckay does not think the patient would benefit from admission at this time given there is no evidence of pathology that could be appropriately treated as an inpatient. Reason for consultation: 03/13/20 04:11 CVA SYMPTOMS, BALANCE PROBLEMS, SLURRED SPEECH ED Alteplase Inc/Exc Criteria - Date/Time patient last known well: Date/Time: 03/11/2020 2200 hrs. - Date/Time patient arrived in ED: _: 03/13/2020 - Inclusion Criteria: 1: Patient presented to ED within 3 hours of acute ischemic stroke symptom onset? -: No 2: Did baseline CT exclude intracranial hemorrhage and/or other risk factors? -: Yes 3: Is the age of the patient 18 years of age or greater? -: Yes : If any of the above questions are answered "NO" then stop, patient is not a candidate for Alteplase, : If all of the above questions are answered "YES" then continue with Exclusion Criteria. - Exclusion Criteria: 1: Is there evidence of intracranial hemorrhage on baseline CT? 2: Is there suspicion of subarachnoid hemorrhage (even if CT negative)? 3: Is there a history of serious head trauma, recent previous stroke or DC within 3 months? 4: Does the patient have a clinical presentation consistent with DC or post-DC pericarditis? 5: Is there history of intracranial hemorrhage? 6: On repeated measurement is Systolic BP greater than 185mmHg or Diastolic BP greater that 110 mmHg and is aggressive treatment needed to reduce blood pressure to these limits (e.g. constant infusion of an anti-hypertensive)? 7: Did the patient awake with stroke symptoms? 8: Has the patient had a lumbar puncture or an arterial puncture at a non- compressile site within 7 days? 9: With in the last 14 days did the patient have surgery or major trauma? 10: Is the patient or less than 2 weeks? 11: Was there any active bleeding or acute trauma? 12: Does the patient have intracranial neoplasm, arteriovenous malformation or aneurysm? 13: Does the patient have abnormal glucose (less than 50 or greater than 400mg/dl)? Record glucose in Comment. 14: Patient has rapidly improving symptoms at the time Alteplase is to be Administered. 15: Does the patient have any risks for bleeding, including but not limited to: a.: Current use of Coumadin with PT greater than 15 seconds or INR greater than 1.7. b.: Current use of Pradaxa (Dabigatran). c.: Heparin administereed within the past 48 hours and PTT elevated. d.: Platelet count less than 100,000/mm. e.: Major surgery or serious trauma within 14 days. f.: Gastrointestinal or gynecological urinary bleeding within 14 days. g.: Myocardial Infarction (DC) within 3 months. : If the answer to any of the above questions is "YES" then stop, the patient is not a candidate for Alteplase. : If the answer to all of the above questions is "NO" then the patient may be eligible for the Administration of Alteplase. : If the patient is noted to have seizure activity at onset of Stroke symptoms; Consult Neurologist for further evaluation. - The patient is: -: Included and is eligible to receive Alteplase. *Initiate bed placement at higher level of care* Reviewed risks & benefits of thrombolytic therapy: I have reviewed the risks and benefits of thrombolytic therapy with the patient and/or his/her family. -: Excluded and not eligible to receive Alteplase for the above exclusions. -: Excluded and not eligible to receive Alteplase for other reasons (specify in comments): - Diagnosis of TIA: -: Patient presented with transient symptoms that are now resolved and no other neurologic findings are currently present. List symptoms in comments. -: Patient is NOT a candidate for tPA. -: ____(put name in comment) has been consulted for admission and continued evaluation of risk factor assessment. ED NIH Stroke Scale - NIH Stroke Scale When completed:: Before Alteplase *: 1. NIH scale should be completed with appropriate accompanying assessment tools. *: 2. The NIH should reflect what the patient is capable of doing and should not be coached by the clinician. 1a. Level of Consciousness: 0=Alert;keenly responsive -: 1=Drowsy -: 2=Obtunded -: 3=Coma/unresponsive or reflex to noxious stimuli. 1a. Responses: 0 1b. Orientation Questions: a. What month is it? -: b. How old are you? -: 0=Answers both questions correctly. -: 1=Answers one question correctly or patient is intubated or has orotracheal trauma. -: 2=Answers neither question correctly. 1b. Responses: 0 1c. Response to commands: a. Open and close eyes? -: b. Application Support Administrator and release hand? -: Credit is given despite weakness. Demonstration of task is permitted. Substitute command if hands cannot be used. -: 0=Performs both tasks correctly -: 1=Performs one task correctly -: 2=Performs neither task correctly 1c. Responses: 0 2. Gaze: Establish eye contact and instruct patient to "Follow my finger" -: 0=Normal -: 1=Partial gaze palsy. Gaze is abnormal in one or both eyes, but where forced deviation or total gaze paresis is not present. -: 2=Forced deviation or total gaze paresis. 3. Visual Streeter: Sees fingers in all four quadrants. -: 0=No visual loss. -: 1=Partial hemianopsia. -: 2=Complete hemianopsia. -: 3=Bilateral hemianopsia (including Cortical blindness) 3. Responses: 0 4. Facial Movement: Instruct patient to: -: a. Show me your teeth -: b. Raise your eyebrows -: c. Close your eyes -: d. Smile -: 0=Normal symmetrical movement -: 1=Minor paralysis (flattened nasolabial fold, asymmetry on smiling). -: 2=Partial paralysis (total or near total paralysis of lower face). -: 3=Complete paralysis of upper and lower face 4. Responses: 0 5. Motor functions (left arm): Alternate sides and extend each arm with palms down (90 degrees if sitting or 45 degrees for supine). -: 0=No drift;limb holds for full 10 seconds. -: 1=Drift; limb holds but drifts down before full 10 seconds, but does not hit bed. -: 2=Some effort against gravity; limb cannot get to or maintain position. -: 3=No effort against gravity; limb falls. -: 4=No movement. -: UN=Amputation, joint fusion, explain in comments. 5. Responses (left arm): 1 5. Motor Functions (right arm): Alternate sides and extend each arm with palms down (90 degrees if sitting or 45 degrees for supine). -: 0=No drift;limb holds for full 10 seconds. -: 1=Drift; limb holds but drifts down before full 10 seconds, but does not hit bed. -: 2=Some effort against gravity; limb cannot get to or maintain position. -: 3=No effort against gravity; limb falls. -: 4=No movement. -: UN=Amputation, joint fusion, explain in comments. 5. Responses (right arm): 0 6. Motor Functions (left leg): With patient lying supine, alternate sides and extend each leg (30 degrees always while supine). -: 0=No drift, leg holds position for full 5 seconds -: 1=Drift; leg falls before full 5 seconds but does not hit bed. -: 2=Some effort against gravity, leg falls to bed but some effort against gravity. -: 3=No effort against gravity, leg falls to bed immediately. -: 4=No movement. -: UN=Amputation, joint fusion; explain in comments. 6. Responses (left leg): 2 6. Motor Functions (right leg): With patient lying supine, alternate sides and extend each leg (30 degrees always while supine). -: 0=No drift, leg holds position for full 5 seconds -: 1=Drift; leg falls before full 5 seconds but does not hit bed. -: 2=Some effort against gravity, leg falls to bed but some effort against gravity. -: 3=No effort against gravity, leg falls to bed immediately. -: 4=No movement. -: UN=Amputation, joint fusion; explain in comments. 6. Responses (right leg): 0 7. Limb Ataxia: With eyes open instruct patient to: -: a. "Touch your finger to your nose". -: b. "Touch your heel to your miguel" -: 0=Absent -: 1=Present in one limb. -: 2=Present in two limbs. -: UN=Amputation or joint fusion; explain in comments. 7. Responses: 2 7. If ataxia present choose as appropriate: Left arm, Left leg 8. Sensory: Test sensation using pinprick or noxious stimuli. Test as many body parts as possible. -: 0=Normal;no sensory loss -: 1=Mile to moderate sensory loss (patient feels pin prick but is less sharp on affected side). -: 2=Severe or total sensory loss. 8. Responses: 1 9. Best Language: Instruct patient to: -: a. "Describe what you see in this picture." -: b. "Name the items in this picture." -: c. "Read these sentences." -: 0=No aphasia, normal -: 1=Mild to moderate aphasia. -: 2=Severe aphasia -: 3=Mute, global aphasia, no usable speech or auditory comprehension. 9. Responses: 1 10. Articulation, Dysarthia: Instruct patient to: -: "Read these words" or "Repeat these words" -: 0=Normal -: 1=Mild to moderate; patient may slur some words but can be understood without difficulty. -: 2=Severe; patients speech so slurred as to be unintelligible in the absence of dysphasia. -: UN=Intubated or other physical barrier, explain in comments. 10. Responses: 1 11. Extinction or inattention: 0=No abnormality -: 1= Visual, tactile, auditory, spatial, or personal inattention or extinction to bilateral simulation in one or the sensory modalities. -: 2=Profound an-inattention or an-inattention to more than one modality; does not recognize own hand. 11. Responses: 0 Total Score: 8 Discharge - Discharge Clinical Impression: Left-sided weakness, Multifactorial gait disorder Headache Qualifiers: Headache type: unspecified Intractability: not intractable Nausea & vomiting Qualifiers: Vomiting type: unspecified Vomiting Intractability: non-intractable Qualified Code(s): R11.2 - Nausea with vomiting, unspecified Condition: Stable Disposition: OTHER Referrals: KATERYNA GONSALEZ MD [Primary Care Provider] - Follow up as needed
--- NOTE | 2020-03-13 04:59 | EKG REPORT ---
SEVERITY:- OTHERWISE NORMAL ECG - SINUS TACHYCARDIA : Confirmed by: Eileen Bellamy MD 13-Mar-2020 04:59:00
[2020-03-13] MEDS ORDERED: ASPIRIN 325 MG TABLET PO ONE (07:02)
[2020-03-13] MEDS ORDERED: LORAZEPAM INJ 2 MG/1 ML VIAL IV ONE (07:38)
--- NOTE | 2020-03-13 08:36 | RADIOLOGY REPORT (SQ) ---
EXAM DESCRIPTION: MRI HEAD WITHOUT IMAGES COMPLETED DATE/TIME: 03/13/2020 7:17 am REASON FOR STUDY: 11; weakness. Headache, slurred speech, off balance, for several days. History o f TIA. Hypertension, diabetes, cervical cancer COMPARISON: CT head, same date. TECHNIQUE: Multiplanar imaging includes non-contrasted T1, T2, FLAIR, and diffusion with ADC map seq uences. Images stored on PACS. LIMITATIONS: None. FINDINGS: ANATOMY: No anomalies. Normal vascular flow voids. Pituitary fossa normal. CSF SPACES: Normal in size and contour. No hemorrhage. Prominent perivascular space is noted in the right temporal lobe. CEREBRUM: Sulci and gyri normal in size and contour. Mild hyperintense periventricular and deep whit e matter signal on FLAIR imaging. No evidence of hemorrhage, mass, or extraaxial fluid collection. POSTERIOR FOSSA: No signal alteration. No hemorrhage. No edema, masses or mass effect. Internal justin tory canals, cerebello-pontine angles, mastoids normal. DIFFUSION IMAGING: Negative for acute or sub-acute infarction. ORBITS: No masses. Globes normal. PARANASAL SINUSES: No fluid levels. Mucosa normal. OTHER: No other significant finding. IMPRESSION: No acute ischemia, mass, mass effect, or evidence of intracranial hemorrhage. 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 EVIDENCE OF ACUTE STROKE: NO. TECHNICAL DOCUMENTATION: JOB ID: [id number] [employer]- All Rights Reserved Reading location - IP/workstation name: [email or web address]
[2020-03-13] MEDS ORDERED: HYDROCODONE/ACETAMINOPHEN 5-325 MG TABLET PO ONE (11:10)
[2020-03-13] MEDS ORDERED: CEFTRIAXONE 1 GM/D5W RTU 1 GM/50 ML RTUPB IV ONE (11:22)
--- NOTE | 2020-03-13 11:22 | ER Document Report ---
Doctor's Note Notes: 03/13/20 11:18 60-year-old female that has signed out to me by the off going physician pending possible social work consultation and MRI. Patient has a history as recorded including a stroke in 2019. She has subsequently presented here with some gait disturbance and some weakness with possible slurred speech. She was admitted with 3 MRIs that were unremarkable for acute process. Also had some mild nausea and headache. No traumas, fever, or vomiting. Patient supposedly has baseline left-sided weakness secondary to the stroke. Imaging and labs as recorded. The hospitalist was initially consulted by the outgoing provider for admission. The hospitalist at that time reviewed the patient's MRI imaging and stated that the patient had multiple previous presentations similarly and the MRIs were all unremarkable. He does not believe that the patient requires admission. MRI was performed as recorded. No change in examination from the baseline exam on previous visits. Patient herself states she is here only because she feels nauseous with a mild frontal headache. No head trauma or neck stiffness. No weakness or numbness above baseline. Social work is seen and assessed the patient. Social work states the patient is here only secondary to nausea. We called the patient's . He states that the patient was sent here secondary to nausea. He states that the patient has no weakness above baseline. He states that the patient has had some intermittent slurred speech since her previous stroke. Social work will call the primary care physician and help set up a riser for the toilet. Patient already has outpatient physical therapy. Patient has no abdominal pain on repeat palpation. She has had no vomiting. Afebrile. Vital signs as recorded. Urine culture will be sent and we will start the patient on a course of antibiotics and provide fluids prior to discharge. I do believe intracranial pathology and subarachnoid hemorrhage to be unlikely. Patient may have a urinary tract infection and I believe this may help with the nausea. We will also prescribe a prescription for nausea medications. Strict return precautions have been explained to the patient and the .
[2020-03-13 12:07] VITALS: BP 135/80
== END 2020-03-13 12:41 | disposition home or self-care (01) ==
LOC: ER 01:35
DX: R53.1 Weakness (principal); R26.89 Other abnormalities of gait and mobility; R82.998 Other abnormal findings in urine; R11.2 Nausea with vomiting, unspecified; R47.81 Slurred speech; R51.9 Headache, unspecified; R42 Dizziness and giddiness; E78.00 Pure hypercholesterolemia, unspecified; I10 Essential (primary) hypertension; E11.9 Type 2 diabetes mellitus without complications; R29.708 NIHSS score 8; Z88.0 Allergy status to penicillin; Z88.6 Allergy status to analgesic agent
CPT/HCPCS: 93005; 96376; 99285; 96361; 96375; 96365; 36415; 87086; 82553; 82962; 82550; 85025; 85610; 85730; 87088; 80053; 81001; 84484; 70551; 71045; 70450; 93010; J2060; J2405; J7030; J0696

== ENCOUNTER 2020-03-27 13:47 | Observation (INO) | payer OTHER ==
[2020-03-27] MEDS ORDERED: ONDANSETRON 4 MG TAB.RAPDIS PO ONE (14:36)
[2020-03-27] MEDS ORDERED: ACETAMINOPHEN 325 MG TABLET PO ONE (14:36)
--- NOTE | 2020-03-27 14:38 | ER Document Report ---
ED Medical Screen (RME) - General Stated Complaint: CHEST DISCOMFORT X3 DAYS Time Seen by Provider: 03/27/20 14:29 Primary Care Provider: KATERYNA GONSALEZ MD [Primary Care Provider] - Follow up as needed Information source: Patient Notes: She presents complaining of chest pain for the past 3 days and palpitations. Patient states that she had an episode of diaphoresis and dizziness today. Patient complains of headache and nausea at this time. Patient has a history of hypertension, dyslipidemia, diabetes and previous CVA. I have greeted and performed a rapid initial assessment of this patient. A comprehensive ED assessment and evaluation of the patient, analysis of test results and completion of the medical decision making process will be conducted by additional ED providers. TRAVEL OUTSIDE OF THE [place] IN LAST 30 DAYS: No - Related Data Allergies/Adverse Reactions: Penicillins Allergy (Unknown, Verified 03/13/20 08:46) cephalexin monohydrate [From Keflex] Allergy (Verified 03/13/20 08:46) ciprofloxacin [From Cipro] Allergy (Verified 03/13/20 08:46) codeine Allergy (Verified 03/13/20 08:46) latex [Latex] Allergy (Verified 03/13/20 08:46) metformin Allergy (Verified 03/13/20 08:46) nitrofurantoin macrocrystalline [From Macrodantin] Allergy (Verified 03/13/20 08:46) penicillin G Allergy (Verified 03/13/20 08:46) Sulfa (Sulfonamide Antibiotics) Allergy (Verified 03/13/20 08:46) tetracycline [Tetracycline] Allergy (Verified 03/13/20 08:46) nitroglycerin [From Nitrostat] Adverse Reaction (Verified 03/13/20 08:46) Past Medical History - Social History Family history: Reviewed & Not Pertinent - Past Medical History Cardiac Medical History: Reports: Hx Hypercholesterolemia, Hx Hypertension Pulmonary Medical History: Reports: Hx Asthma Neurological Medical History: Reports: Hx Cerebrovascular Accident, Hx Migraine Endocrine Medical History: Reports: Hx Diabetes Mellitus Type 1, Hx Diabetes Mellitus Type 2. Denies: Hx Hyperthyroidism, Hx Hypothyroidism Renal/ Medical History: Denies: Hx Peritoneal Dialysis Malignancy Medical History: Reports: Hx Cervical Cancer GI Medical History: Reports: Hx Gastroesophageal Reflux Disease. Denies: Hx Cirrhosis, Hx Hepatitis Musculoskeltal Medical History: Reports Hx Arthritis, Reports Hx Fibromyalgia, Reports Hx Musculoskeletal Deformity, Reports Hx Musculoskeletal Trauma Psychiatric Medical History: Reports: Hx Anxiety, Hx Depression Traumatic Medical History: Reports: Hx Fractures - Facial fractures bilateral toes elbow and left knee Infectious Medical History: Denies: Hx Hepatitis Past Surgical History: Reports: Hx Abdominal Surgery - hernia, Hx Section - 2, Hx Cholecystectomy, Hx Herniorrhaphy, Hx Hysterectomy, Hx Orthopedic Surgery - bilateral toes and elbows left knee twice, Hx Tubal Ligation, Other - Ventral hernia and pseudocyst removal. Denies: Hx Appendectomy - Immunizations Immunizations up to date: Yes Hx Diphtheria, Pertussis, Tetanus Vaccination: Yes Physical Exam - Respiratory Respiratory status: No respiratory distress Chest status: Nontender Breath sounds: Normal Chest palpation: Normal Doctor's Discharge - Discharge Referrals: KATERYNA GONSALEZ MD [Primary Care Provider] - Follow up as needed
--- NOTE | 2020-03-27 15:34 | ER Document Report ---
ED Cardiac - General Chief Complaint: Chest Pain Stated Complaint: CHEST DISCOMFORT X3 DAYS Time Seen by Provider: 03/27/20 14:29 TRAVEL OUTSIDE OF THE [place] IN LAST 30 DAYS: No - HPI Notes: Patient is a 60-year-old female with a past medical history of CVA, hypertension, diabetes, high cholesterol who presents with intermittent chest pain for the past 3 days. Patient states she had episodes of chest pressure that lasted under 5 minutes and resolved. Today, the chest pain remains. She states that during these episodes she gets diaphoretic and lightheaded. She denies any arm pain or neck pain. Patient denies any shortness of breath. She states she has had a headache today. She normally gets headaches but they go away with Tylenol. She has not been able to treat this with Tylenol or ibupro fen. Patient has a history of slurred speech from her CVA. She states she thinks may be slightly more slurred since she woke up today. She went to bed at 10 PM last night and states her speech was at her baseline. Patient denies any new weakness. 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 - Related Data Allergies/Adverse Reactions: Penicillins Allergy (Unknown, Verified 03/13/20 08:46) cephalexin monohydrate [From Keflex] Allergy (Verified 03/13/20 08:46) ciprofloxacin [From Cipro] Allergy (Verified 03/13/20 08:46) codeine Allergy (Verified 03/13/20 08:46) latex [Latex] Allergy (Verified 03/13/20 08:46) metformin Allergy (Verified 03/13/20 08:46) nitrofurantoin macrocrystalline [From Macrodantin] Allergy (Verified 03/13/20 08:46) penicillin G Allergy (Verified 03/13/20 08:46) Sulfa (Sulfonamide Antibiotics) Allergy (Verified 03/13/20 08:46) tetracycline [Tetracycline] Allergy (Verified 03/13/20 08:46) nitroglycerin [From Nitrostat] Adverse Reaction (Verified 03/13/20 08:46) Past Medical History - General Information source: Patient - Social History Smoking Status: Never Smoker Family History: Arthritis, CVA, DM, Hyperlipidemia, Hypertension, Malignancy, Thyroid Disfunction - Past Medical History Cardiac Medical History: Reports: Hx Hypercholesterolemia, Hx Hypertension Pulmonary Medical History: Reports: Hx Asthma Neurological Medical History: Reports: Hx Cerebrovascular Accident, Hx Migraine Endocrine Medical History: Reports: Hx Diabetes Mellitus Type 1, Hx Diabetes Mellitus Type 2. Denies: Hx Hyperthyroidism, Hx Hypothyroidism Renal/ Medical History: Denies: Hx Peritoneal Dialysis Malignancy Medical History: Reports: Hx Cervical Cancer GI Medical History: Reports: Hx Gastroesophageal Reflux Disease. Denies: Hx Cirrhosis, Hx Hepatitis Musculoskeletal Medical History: Reports Hx Arthritis, Reports Hx Fibromyalgia, Reports Hx Musculoskeletal Deformity, Reports Hx Musculoskeletal Trauma Psychiatric Medical History: Reports: Hx Anxiety, Hx Depression Traumatic Medical History: Reports: Hx Fractures - Facial fractures bilateral toes elbow and left knee Infectious Medical History: Denies: Hx Hepatitis Past Surgical History: Reports: Hx Abdominal Surgery - hernia, Hx Section - 2, Hx Cholecystectomy, Hx Herniorrhaphy, Hx Hysterectomy, Hx Orthopedic Surgery - bilateral toes and elbows left knee twice, Hx Tubal Ligation, Other - Ventral hernia and pseudocyst removal. Denies: Hx Appendectomy - Immunizations Immunizations up to date: Yes Hx Diphtheria, Pertussis, Tetanus Vaccination: Yes Review of Systems - Review of Systems Notes: CONSTITUTIONAL: No fever, fatigue or weight loss. SKIN: No rash. HENT: No congestion, ear pain, or sore throat. EYES: No recent vision problems or eye pain. ENDOCRINE: No polyuria or polydipsia. CARDIOVASCULAR: Positive for chest pain and diaphoresis. RESPIRATORY: No cough, shortness of breath, congestion, or wheezing. GASTROINTESTINAL: No abdominal pain, nausea, vomiting, bloody stools or diarrhea. GENITOURINARY: No dysuria. MUSCULOSKELETAL: No joint pain or swelling. . NEUROLOGIC: No seizures. No headache, focal weakness or sensory changes. HEMATOLOGIC: No unusual bruising or bleeding. PSYCHIATRIC: No depression or anxiety. Physical Exam - Vital signs Vitals: Pulse Ox 95 03/27/20 14:33 - General General appearance: Appears well Notes: VITAL SIGNS: Within normal limits. GENERAL: No acute distress, non-toxic appearance. HEAD: Normal with no signs of head trauma. EYES: EOMI, conjunctiva normal, no discharge. EARS: Hearing grossly intact. NOSE: Normal. THROAT: Oropharynx is normal. NECK: Normal range of motion, no tenderness, supple, no lymphadenopathy, No adenopathy, no JVD. CHEST: Clear breath sounds bilaterally. No wheezes, rales, or rhonchi. CARDIAC: Regular rate and rhythm. S1 and S2, without murmurs, gallops, or rubs. VASCULAR: No Edema. Peripheral pulses normal and equal in all extremities. ABDOMEN: Normal and soft with no tenderness, no masses or pulsatile masses. GENITOURINARY: Normal, No tenderness MUSCULOSKELETAL: Good range of motion of all major joints. Extremities without clubbing, cyanosis or edema. NEUROLOGICAL: Alert and oriented x 3. No focal sensory or strength deficits. Speech slurred at baseline. Follows commands appropriately. PSYCHIATRIC: Normal Affect, judgement and mood. SKIN: Normal appearance with no rashes or lesions. Course - Re-evaluation Re-evalutation: 03/27/20 19:30 Heart score is 4 03/27/20 21:38 Patient states she still has chest pain. Patient states she is allergic to nitro and does not want any. She has had aspirin from EMS. She states her headache is improved with morphine. Patient had 2 unremarkable EKGs and 2 negative troponins. However, she is still having pain. I recommended we keep her in the hospital for observation. I discussed this with the hospitalist who is in agreement. They do have a cardiac cath abilities tomorrow if she requires it. Patient is very agreeable to the plan. Patient stated she might have worsening of her chronic slurred speech. However, her last known well was last night before bed. CT head is unremarkable. She will be admitted for further work-up. - Vital Signs Vital signs: Temp Pulse Resp BP Pulse Ox 98.2 F 98 16 104/68 95 03/27/20 14:40 03/27/20 14:40 03/27/20 17:40 03/27/20 17:40 03/27/20 17:40 - Laboratory Result Diagrams: 03/27/20 16:10 03/27/20 16:10 Laboratory results interpreted by me: 03/27/20 03/27/20 16:10 16:10 RDW 15.1 H Chloride 95 L Carbon Dioxide 31 H Glucose 143 H Direct Bilirubin 0.5 H - Diagnostic Test Radiology reviewed: Image reviewed, Reports reviewed - EKG Interpretation by Me EKG shows normal: Sinus rhythm Rate: Normal Rhythm: NSR Additional EKG results interpreted by me: 03/27/20 15:32 Sinus rhythm at a rate of 79. QTc 450. No acute ST changes. EKG is similar to previous. 03/27/20 20:59 Repeat EKG shows sinus rhythm at a rate of 73. QTc 463. No acute ST changes. EKG is similar to previous. Discharge - Discharge Clinical Impression: Chest pain Qualifiers: Chest pain type: unspecified Qualified Code(s): R07.9 - Chest pain, unspecified Condition: Stable Disposition: ADMITTED OBSERVATION Unit Admitted: Telemetry
--- NOTE | 2020-03-27 15:54 | RADIOLOGY REPORT (SQ) ---
EXAM DESCRIPTION: CHEST SINGLE VIEW IMAGES COMPLETED DATE/TIME: 03/27/2020 3:47 pm REASON FOR STUDY: cp COMPARISON: 03/13/2020 EXAM PARAMETERS: NUMBER OF VIEWS: One view. TECHNIQUE: Single frontal radiographic view of the chest acquired. RADIATION DOSE: NA LIMITATIONS: None. FINDINGS: LUNGS AND PLEURA: No opacities, masses or pneumothorax. No pleural effusion. MEDIASTINUM AND HILAR STRUCTURES: No masses. Contour normal. HEART AND VASCULAR STRUCTURES: Heart normal in size. Normal vasculature. BONES: No acute findings. HARDWARE: Loop recorder remains in place. OTHER: No other significant finding. IMPRESSION: NO ACUTE RADIOGRAPHIC FINDING IN THE CHEST. TECHNICAL DOCUMENTATION: JOB ID: [id number] 2010 [employer]- All Rights Reserved Reading location - IP/workstation name: [email or web address]
[2020-03-27] MEDS ORDERED: ONDANSETRON HCL INJ/PF 4 MG/2 ML SDV IV ONE (16:22)
[2020-03-27] MEDS ORDERED: MORPHINE SULFATE 10 MG/ML INJ IV ONE (16:24)
[2020-03-27 16:26] LABS: ABSOLUTE EOSINOPHILS # (AUTO) 0.1 10^3/uL (0.0-0.6); ABSOLUTE LYMPHOCYTES (AUTO) 1.7 10^3/uL (0.5-4.7); ABSOLUTE MONOCYTES (AUTO) 0.8 10^3/uL (0.1-1.4); BASOPHILS % (AUTO) 0.7 % (0-2); EOSINOPHILS % (AUTO) 2.2 % (0-6); HEMATOCRIT 41.8 % (36.0-47.0); HEMOGLOBIN 14.8 g/dL (12.0-15.5); LYMPHOCYTES % (AUTO) 25.4 % (13-45); MEAN CORPUSCULAR HEMOGLOBIN 28.3 pg (27.0-33.4); MEAN CORPUSCULAR HGB CONC 35.5 g/dL (32.0-36.0); MEAN CORPUSCULAR VOLUME 80 fl (80-97); MONOCYTES % (AUTO) 12.1 % (3-13); PLATELET COUNT 206 10^3/uL (150-450); RED BLOOD COUNT 5.24 10^6/uL (3.72-5.28); RED CELL DISTRIBUTION WIDTH 15.1 % (11.5-14.0); SEGMENTED NEUTROPHILS % (AUTO) 59.6 % (42-78); TOTAL CELLS COUNTED % (AUTO) 100 %; WHITE BLOOD COUNT 6.7 10^3/uL (4.0-10.5)
[2020-03-27] MEDS ORDERED: NORMAL SALINE 1000 ML 1,000 ML IV ONE (16:26)
[2020-03-27 16:50] LABS: ALBUMIN 4.8 g/dL (3.5-5.0); ALKALINE PHOSPHATASE 69 U/L (38-126); ANION GAP 12 (5-19); ASPARTATE AMINO TRANSFERASE 35 U/L (14-36); BILIRUBIN,DIRECT 0.5 mg/dL (0.0-0.4); BILIRUBIN,TOTAL 0.7 mg/dL (0.2-1.3); BLOOD UREA NITROGEN 19 mg/dL (7-20); CALCIUM 10.1 mg/dL (8.4-10.2); CARBON DIOXIDE 31 mmol/L (22-30); CHLORIDE 95 mmol/L (98-107); GLUCOSE 143 mg/dL (75-110); POTASSIUM 4.1 mmol/L (3.6-5.0); TOTAL PROTEIN 7.6 g/dL (6.3-8.2)
--- NOTE | 2020-03-27 17:22 | EKG REPORT ---
SEVERITY:- ABNORMAL ECG - SINUS RHYTHM PROBABLE INFERIOR INFARCT, OLD BORDERLINE R WAVE PROGRESSION, ANTERIOR LEADS : Confirmed by: Rakesh Hernandez MD 27-Mar-2020 17:20:51
--- NOTE | 2020-03-27 17:47 | RADIOLOGY REPORT (SQ) ---
EXAM DESCRIPTION: CT HEAD WITHOUT IMAGES COMPLETED DATE/TIME: 03/27/2020 5:32 pm REASON FOR STUDY: headache, worsening of chronic slurred speech COMPARISON: MR 03/13/2020 CT 03/13/2020 TECHNIQUE: Axial images acquired through the brain without intravenous contrast. Images reviewed wi th bone, brain and subdural windows. Additional sagittal and coronal reconstructions were generated. Images stored on PACS. All CT scanners at this facility use dose modulation, iterative reconstruction, and/or weight based d osing when appropriate to reduce radiation dose to as low as reasonably achievable (ALARA). [facility]: Dose Right [facility]: CareDose [facility]: Dose Right [facility]: Teradose 4D [facility]: [employer] RADIATION DOSE: CT Rad equipment meets quality standard of care and radiation dose reduction techniq ues were employed. CTDIvol: 53.2 mGy. DLP: 991 mGy-cm. mGy. LIMITATIONS: None. FINDINGS: VENTRICLES: Normal size and contour. CEREBRUM: No masses. No hemorrhage. No midline shift. Prominent perivascular space in the medial r ight temporal lobe. No evidence for acute infarction. Normal tse/white matter differentiation. No a reas of low density in the white matter. CEREBELLUM: No masses. No hemorrhage. No alteration of density. No evidence for acute infarction. EXTRAAXIAL SPACES: No fluid collections. No masses. ORBITS AND GLOBE: No intra- or extraconal masses. Normal contour of globe without masses. CALVARIUM: No fracture. PARANASAL SINUSES: No fluid or mucosal thickening. SOFT TISSUES: No mass or hematoma. OTHER: No other significant finding. IMPRESSION: NO ACUTE INTRACRANIAL IMAGING FINDINGS. EVIDENCE OF ACUTE STROKE: NO. COMMENT: Quality ID # [id number]: Final reports with documentation of one or more dose reduction techniques (e.g., Automated exposure control, adjustment of the mA and/or kV according to patient size, use of iterative reconstruction technique) TECHNICAL DOCUMENTATION: JOB ID: [id number] 2010 [employer]- All Rights Reserved Reading location - IP/workstation name: [email or web address]
--- NOTE | 2020-03-27 21:11 | EKG REPORT ---
SEVERITY:- ABNORMAL ECG - SINUS RHYTHM PROBABLE INFERIOR INFARCT, AGE INDETERMINATE CONSIDER ANTERIOR INFARCT : Confirmed by: Rakesh Hernandez MD 27-Mar-2020 21:11:08
--- NOTE | 2020-03-27 21:45 | PDOC H&P ---
History of Present Illness Admission Date/PCP: KATERYNA GONSALEZ MD 03/27/2020 Patient complains of: Chest pain. Worsening of slurring of speech History of Present Illness: ORLY OSEI is a 60 year old female with a history of CVA with residual left-sided body weakness, type 2 diabetes, hyperlipidemia and hypertension presents to ED with 3 days duration of intermittent left-sided chest pain which she describes at heaviness, 8/10 intensity, nonradiating, nonexertional, with no clear aggravating or relieving factor. She says the pain can happen anytime while she is lying on her bed and it can last for hours. Patient also reports that she has noticed that her speech has worsened since this morning and has been having difficulty of saying words. She denies any new weakness of extremities, headache, change in her vision, history of head injury or falls. She also denies shortness of breath, palpitation, dizziness, orthopnea, PND, leg swelling, cough, fever, chills. Past Medical History Cardiac Medical History: Reports: Hyperlipidema, Hypertension Pulmonary Medical History: Reports: Asthma Neurological Medical History: Reports: Migraine Endocrine Medical History: Reports: Diabetes Mellitus Type 1, Diabetes Mellitus Type 2 Denies: Hyperthyroidism, Hypothyroidism Malignancy Medical History: Reports: Cervical Cancer GI Medical History: Reports: Gastroesophageal Reflux Disease Denies: Cirrhosis, Hepatitis Musculoskeltal Medical History: Reports: Arthritis, Fibromyalgia Psychiatric Medical History: Reports: Depression Past Surgical History Past Surgical History: Reports: Section - 2, Cholecystectomy, Herniorrhaphy, Hysterectomy, Orthopedic Surgery - bilateral toes and elbows left knee twice, Tubal Ligation, Other - Ventral hernia and pseudocyst removal Denies: Appendectomy Social History Information Source: Patient Lives with: Family Smoking Status: Never Smoker Frequency of Alcohol Use: None Hx Recreational Drug Use: No Drugs: None Hx Prescription Drug Abuse: No - Advance Directive Resuscitation Status: Full Code Family History Family History: Arthritis, CVA, DM, Hyperlipidemia, Hypertension, Malignancy, Thyroid Disfunction Parental Family History Reviewed: Yes Children Family History Reviewed: Yes Sibling(s) Family History Reviewed.: Yes Medication/Allergy Home Medications: Metoprolol Succinate [Toprol Xl 25 mg Tab.sr] 25 mg PO DAILY 05/04/19 Pound-3 Fatty Acids/Fish Oil [Pound 3 Fish Oil Softgel] 1 each PO DAILY 05/04/19 Quetiapine Fumarate [Seroquel 100 mg Tablet] 100 mg PO QHS 05/04/19 Tumeric 500 mg PO DAILY 05/04/19 Insulin Degludec [Tresiba Flextouch U-100] 30 unit SQ BID 07/02/19 Dapagliflozin Propanediol [Farxiga] 10 mg PO DAILY 08/04/19 Docusate Sodium [Colace 100 mg Capsule] 300 mg PO DAILY 11/14/19 Pantoprazole Sodium [Protonix [address] Tablet] 20 mg PO QAM 11/14/19 Clopidogrel Bisulfate [Plavix 75 mg Tablet] 75 mg PO DAILY #30 tablet 11/15/19 Insulin Aspart [Novolog Flexpen] See Protocol SUBCUT AC #1 pen 11/15/19 Aspirin [Lo-Dose Aspirin EC] 81 mg PO DAILY #30 tablet.dr 12/10/19 Carbamazepine [Carbamazepine ER] 200 mg PO BID 01/01/20 Linaclotide [Linzess] 72 mcg PO DAILY 01/02/20 Losartan Potassium 50 mg PO DAILY 01/02/20 Pregabalin [Lyrica 50 mg Capsule] 50 mg PO DAILY 01/02/20 Atorvastatin Calcium [Lipitor 80 mg Tablet] 80 mg PO QHS 30 Days #30 tablet 01/03/20 Meclizine HCl [Antivert 25 mg Tablet] 25 mg PO Q8 10 Days #30 tablet 01/03/20 Albuterol Sulfate [Albuterol Sulfate Hfa] 2 puff IH Q6H PRN #1 hfa.aer.ad 02/10/20 Prednisone [Deltasone 20 mg Tablet] 40 mg PO DAILY 3 Days #6 tablet 02/10/20 Cefdinir 300 mg PO BID #14 capsule 03/13/20 Cephalexin Monohydrate [Keflex 500 mg Capsule] 500 mg PO Q8H 5 Days #30 capsule 03/13/20 Ondansetron [Zofran Odt 4 mg Tablet] 1 tab PO Q6H #12 tab.rapdis 03/13/20 Allergies/Adverse Reactions: Penicillins Allergy (Unknown, Verified 03/13/20 08:46) cephalexin monohydrate [From Keflex] Allergy (Verified 03/13/20 08:46) ciprofloxacin [From Cipro] Allergy (Verified 03/13/20 08:46) codeine Allergy (Verified 03/13/20 08:46) latex [Latex] Allergy (Verified 03/13/20 08:46) metformin Allergy (Verified 03/13/20 08:46) nitrofurantoin macrocrystalline [From Macrodantin] Allergy (Verified 03/13/20 08:46) penicillin G Allergy (Verified 03/13/20 08:46) Sulfa (Sulfonamide Antibiotics) Allergy (Verified 03/13/20 08:46) tetracycline [Tetracycline] Allergy (Verified 03/13/20 08:46) nitroglycerin [From Nitrostat] Adverse Reaction (Verified 03/13/20 08:46) Review of Systems Constitutional: ABSENT: chills, fever(s), headache(s), weight gain, weight loss Eyes: ABSENT: visual disturbances Ears: ABSENT: hearing changes Nose, Mouth, and Throat: ABSENT: as per HPI, headache(s), mouth pain, sore throat, vertigo, other Cardiovascular: PRESENT: as per HPI Respiratory: ABSENT: cough, hemoptysis Gastrointestinal: ABSENT: abdominal pain, constipation, diarrhea, hematemesis, hematochezia, nausea, vomiting Genitourinary: ABSENT: dysuria, hematuria Musculoskeletal: ABSENT: joint swelling Integumentary: ABSENT: rash, wounds Neurological: PRESENT: as per HPI Psychiatric: ABSENT: anxiety, depression, homidical ideation, suicidal ideation Endocrine: ABSENT: cold intolerance, heat intolerance, polydipsia, polyuria Hematologic/Lymphatic: ABSENT: easy bleeding, easy bruising Physical Exam Vital Signs: Temp Pulse Resp BP Pulse Ox 98.2 F 98 16 104/68 95 03/27/20 14:40 03/27/20 14:40 03/27/20 17:40 03/27/20 17:40 03/27/20 17:40 Intake & Output 03/26/20 03/27/20 03/28/20 06:59 06:59 06:59 Intake Total 1000 Balance 1000 Weight 89.1 kg Additional comments: GENERAL APPEARANCE: Alert and oriented x4, in no acute distress HEENT: Normocephalic and atraumatic. No scleral icterus. PERRLA, EOMs are intact, moist oral mucosa NECK: Supple. Trachea is midline. No evidence of thyroid enlargement. No lymphadenopathy or tenderness. No carotid bruit. No JVD CHEST: Symmetric. Nontender to palpation. LUNGS: Breath sounds are equal and clear bilaterally. No wheezes, rhonchi, or rales. HEART: Regular rate and rhythm with normal S1 and S2. No murmurs, gallops, or rubs. ABDOMEN: Soft, flat, positive bowel sounds, no direct or rebound tenderness, no organomegaly detected EXTREMITIES: No cyanosis, clubbing, or edema. MUSCULOSKELETAL: No deformity or swelling noted PSYCHIATRIC: The patient is awake, alert, and oriented x3. Recent and remote memory is intact. Appropriate mood and affect. SKIN: Warm, dry, and well perfused. No lesions or rashes are noted. NEUROLOGIC: Has a slurred speech. Not clear how more CTs from her baseline cranial nerves II through XII are intact. Power is 3-4/5 in the left upper and lower extremities with 5/5 on the right upper and lower extremities Deep tendon reflexes are +2 bilaterally at biceps, triceps and knee. Tone was normal and no significant atrophy noted Results Laboratory Results: 03/27/20 16:10 03/27/20 16:10 03/27/20 03/27/20 03/27/20 16:10 16:10 16:10 WBC 6.7 RBC 5.24 Hgb 14.8 Hct 41.8 MCV 80 MCH 28.3 MCHC 35.5 RDW 15.1 H Plt Count 206 Seg Neutrophils % 59.6 Sodium 138.3 Potassium 4.1 Chloride 95 L Carbon Dioxide 31 H Anion Gap 12 BUN 19 Creatinine 0.80 Est GFR ( Amer) > 60 Glucose 143 H Calcium 10.1 Magnesium 2.3 Total Bilirubin 0.7 AST 35 Alkaline Phosphatase 69 Total Protein 7.6 Albumin 4.8 TSH 2.04 03/27/20 03/27/20 16:10 19:30 Troponin I < 0.012 < 0.012 Impressions: Chest X-Ray 03/27/20 14:36 IMPRESSION: NO ACUTE RADIOGRAPHIC FINDING IN THE CHEST. Head CT 03/27/20 15:30 IMPRESSION: NO ACUTE INTRACRANIAL IMAGING FINDINGS. EVIDENCE OF ACUTE STROKE: NO. Assessment and Plan - Diagnosis (1) Chest pain Qualifiers: Chest pain type: unspecified Qualified Code(s): R07.9 - Chest pain, un specified Is this a current diagnosis for this admission?: Yes Plan: Patient presents with 3 days duration of intermittent chest pain Initial cardiac enzymes are negative EKG showed no ST-T wave changes consistent with ischemia Placed her on aspirin, high intensity statin On telemetry Trend EKG and cardiac enzymes x2 If negative will keep her n.p.o. in the morning for possible stress test (2) TIA (transient ischemic attack) Is this a current diagnosis for this admission?: Yes Plan: Patient reports interval worsening of dysarthria since this morning Has no new weakness of extremities CT head without contrast was negative for ICH Placed patient on stroke protocol Neurochecks, fall precaution, seizure precaution, aspiration precaution Patient has passed swallow eval Continue Plavix, statin and aspirin Ordered MRI head, carotid Doppler and echo PT, OT, speech therapy (3) Diabetes mellitus Qualifiers: Diabetes mellitus type: type 2 Diabetes mellitus superintendent terminal insulin use: with superintendent terminal use Diabetes mellitus complication status: with neurologic complications Diabetes mellitus complication detail: with other neurological complication Qualified Code(s): E11.49 - Type 2 diabetes mellitus with other diabetic neurological complication; Z79.4 - [facility] (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 of insulin Is this a current diagnosis for this admission?: Yes Plan: Blood sugar on presentation 143 On sliding scale insulin, Accu-Chek and hypoglycemia protocol (4) History of CVA (cerebrovascular accident) Is this a current diagnosis for this admission?: Yes Plan: Patient has history of CVA with left-sided residual weakness and dysarthria Continue Plavix, aspirin and atorvastatin (5) Hypertension Is this a current diagnosis for this admission?: Yes Plan: We will hold blood pressure medicines to allow for permissive hypertension for now (6) HLD (hyperlipidemia) Qualifiers: Hyperlipidemia type: unspecified Qualified Code(s): E78.5 - Hyperlipidemia, unspecified Is this a current diagnosis for this admission?: Yes Plan: Continue atorvastatin - Time Time Spent with patient: 35 or more minutes Total Critical Time (Minutes): 45 Medications reviewed and adjusted accordingly: Yes Anticipated Discharge Disposition: Home with Home Health Anticipated Discharge Timeframe: within 48 hours - Inpatient Certification Based on my medical assessment, after consideration of the patient's comorbidities, presenting symptoms, or acuity I expect that the services needed warrant INPATIENT care.: Yes I certify that my determination is in accordance with my understanding of Medicare's requirements for reasonable and necessary INPATIENT services [42 CFR 412.3e].: Yes Medical Necessity: Significant Comorbidiites Make Outpatient Treatment Too Risky, Need Close Monitoring Due to Risk of Patient Decompensation, Need For Continuous Telemetry Monitoring, Risk of Complication if Not Cared For in Hospital Post Hospital Care: D/C or Transfer Summary
[2020-03-27] MEDS: ATORVASTATIN CALCIUM 40 MG TABLET PO SCH (21:53)
[2020-03-27] MEDS ORDERED: CARBAMAZEPINE 200 MG TAB.SR.12H PO ONE (22:00)
[2020-03-27] MEDS: ONDANSETRON HCL INJ/PF 4 MG/2 ML SDV IV PRN (23:32)
[2020-03-27] MEDS: ACETAMINOPHEN 325 MG TABLET PO PRN (23:57)
[2020-03-28] MEDS ORDERED: MORPHINE SULFATE 10 MG/ML INJ ONE (02:08)
[2020-03-28] MEDS ORDERED: MORPHINE SULFATE 10 MG/ML INJ IV ONE (03:00)
[2020-03-28 06:45] LABS: HEMATOCRIT 39.8 % (36.0-47.0); HEMOGLOBIN 13.8 g/dL (12.0-15.5); MEAN CORPUSCULAR HEMOGLOBIN 27.8 pg (27.0-33.4); MEAN CORPUSCULAR HGB CONC 34.5 g/dL (32.0-36.0); MEAN CORPUSCULAR VOLUME 81 fl (80-97); PLATELET COUNT 188 10^3/uL (150-450); RED BLOOD COUNT 4.94 10^6/uL (3.72-5.28); RED CELL DISTRIBUTION WIDTH 15.2 % (11.5-14.0); WHITE BLOOD COUNT 5.5 10^3/uL (4.0-10.5)
[2020-03-28 07:00] LABS: ANION GAP 12 (5-19); BLOOD UREA NITROGEN 17 mg/dL (7-20); CALCIUM 9.3 mg/dL (8.4-10.2); CARBON DIOXIDE 28 mmol/L (22-30); CHLORIDE 97 mmol/L (98-107); CHOLESTEROL 117.57 mg/dL (0-200); GLUCOSE 198 mg/dL (75-110); POTASSIUM 3.4 mmol/L (3.6-5.0); TRIGLYCERIDES 130 mg/dL (<150)
[2020-03-28 07:11] LABS: DIRECT LDL 51 mg/dL (<100)
--- NOTE | 2020-03-28 07:26 | EKG REPORT ---
SEVERITY:- ABNORMAL ECG - SINUS RHYTHM PROBABLE INFERIOR INFARCT, OLD : Confirmed by: Rakesh Hernandez MD 28-Mar-2020 07:26:00
[2020-03-28] MEDS: ONDANSETRON HCL INJ/PF 4 MG/2 ML SDV IV PRN ×2 (08:22→19:41)
[2020-03-28] MEDS ORDERED: HYDROXYZINE HCL INJ 50 MG/1 ML VIAL IM ONE (09:00)
--- NOTE | 2020-03-28 10:38 | RADIOLOGY REPORT (SQ) ---
EXAM DESCRIPTION: MRI HEAD WITHOUT IMAGES COMPLETED DATE/TIME: 03/28/2020 10:11 am REASON FOR STUDY: TIA COMPARISON: MRI brain 11/14/2019, 03/13/2020 CT brain 03/27/2020, 03/13/2020, 12/09/2019 TECHNIQUE: Multiplanar imaging includes non-contrasted T1, T2, FLAIR, and diffusion with ADC map seq uences. Images stored on PACS. LIMITATIONS: None. FINDINGS: ANATOMY: No developmental anomalies. Normal vascular flow voids. Pituitary fossa normal. CSF SPACES: Normal in size and contour. No hemorrhage. CEREBRUM: Diffusion-weighted images are negative for acute ischemic change, no MR evidence of intracr anial hemorrhage, mass effect, or midline shift. There is minimal white matter disease, age-appropriate, stable POSTERIOR FOSSA: No signal alteration. No hemorrhage. No edema, masses or mass effect. Internal justin tory canals, cerebello-pontine angles, mastoids normal. DIFFUSION IMAGING: Negative for acute or sub-acute infarction. ORBITS: No masses. Globes post cataract surgery PARANASAL SINUSES: No fluid levels. Mucosa normal. OTHER: No other significant finding. IMPRESSION: No acute findings. EVIDENCE OF ACUTE STROKE: NO. TECHNICAL DOCUMENTATION: JOB ID: [id number] 2010 [employer]- All Rights Reserved Reading location - IP/workstation name: [email or web address]
[2020-03-28] MEDS: ENOXAPARIN SODIUM INJ 40 MG/0.4 ML DISP.SYRIN SUBCUT SCH (12:06)
[2020-03-28] MEDS: ASPIRIN 81 MG TABLET, CHEWABLE PO SCH (12:06)
[2020-03-28] MEDS: METOPROLOL SUCCINATE 25 MG TAB.SR.24H PO SCH (12:07)
[2020-03-28] MEDS: PREGABALIN 50 MG CAPSULE PO SCH (12:07)
[2020-03-28] MEDS: CLOPIDOGREL BISULFATE 75 MG TABLET PO SCH (12:07)
[2020-03-28] MEDS ORDERED: PANTOPRAZOLE SODIUM 40 MG VIAL IV ONE (18:43)
[2020-03-28] MEDS ORDERED: (PENDING PHARMACY ID) (Insulin Aspart [Novolog Flexpen] 15 UNIT) SUBCUT SCH ×2 (19:00→20:00)
[2020-03-28] MEDS ORDERED: INSULIN DEGLUDEC 70 UNIT SQ SCH (19:00)
--- NOTE | 2020-03-28 19:06 | PDOC PROGRESS REPORT ---
Subjective Progress Note for:: 03/28/20 Subjective:: ORLY OSEI is a 60 year old female with a history of CVA with residual left-sided body weakness, type 2 diabetes, hyperlipidemia and hypertension presents to ED with 3 days duration of intermittent left-sided chest pain which she describes at heaviness, 8/10 intensity, nonradiating, nonexertional, with no clear aggravating or relieving factor. She says the pain can happen anytime while she is lying on her bed and it can last for hours. Patient also reports that she has noticed that her speech has worsened since this morning and has been having difficulty of saying words. She denies any new weakness of extremities, headache, change in her vision, history of head injury or falls. She also denies shortness of breath, palpitation, dizziness, orthopnea, PND, leg swelling, cough, fever, chills. D2 hospital stay. She was seen and examined at bedside. Reports that her slurring of speech is now back at baseline. She still reports pressure like chest pain. Troponin has been negative x 2 and EKG has not shown any ST changes. MRI head negative for acute stroke. Awaiting echo and carotid US. She was started on aspirin and statin, she is already on plavix. Cardiology was consulted for persistent chest pain. Reason For Visit: CHEST PAIN,POSSIBLE TIA Physical Exam Vital Signs: Temp Pulse Resp BP Pulse Ox 97.5 F 77 16 102/59 L 93 03/28/20 17:00 03/28/20 17:00 03/28/20 17:00 03/28/20 17:00 03/28/20 17:00 Intake & Output 03/27/20 03/28/20 03/29/20 06:59 06:59 06:59 Intake Total 1340 Output Total 2 Balance 1338 Weight 86 kg General appearance: PRESENT: no acute distress, cooperative Head exam: PRESENT: atraumatic, normocephalic Eye exam: PRESENT: EOMI, PERRLA Mouth exam: PRESENT: moist Neck exam: PRESENT: full ROM Respiratory exam: PRESENT: clear to auscultation gerardo, symmetrical, unlabored Cardiovascular exam: PRESENT: RRR, +S1, +S2 Pulses: PRESENT: +2 pedal pulses bilateral GI/Abdominal exam: PRESENT: normal bowel sounds, soft. ABSENT: rebound, tenderness Extremities exam: ABSENT: +2 edema Musculoskeletal exam: PRESENT: full ROM Neurological exam: PRESENT: alert, awake, oriented to person, oriented to place, oriented to time, oriented to situation Skin exam: PRESENT: normal color Results Laboratory Results: 03/28/20 05:54 03/28/20 05:54 03/28/20 03/28/20 05:54 05:54 WBC 5.5 RBC 4.94 Hgb 13.8 Hct 39.8 MCV 81 MCH 27.8 MCHC 34.5 RDW 15.2 H Plt Count 188 Sodium 136.8 L Potassium 3.4 L Chloride 97 L Carbon Dioxide 28 Anion Gap 12 BUN 17 Creatinine 0.63 Est GFR ( Amer) > 60 Glucose 198 H Calcium 9.3 Triglycerides 130 Cholesterol 117.57 LDL Cholesterol Direct 51 VLDL Cholesterol 26.0 HDL Cholesterol 45 03/27/20 03/27/20 03/28/20 16:10 19:30 01:32 Troponin I < 0.012 < 0.012 < 0.012 Impressions: Chest X-Ray 03/27/20 14:36 IMPRESSION: NO ACUTE RADIOGRAPHIC FINDING IN THE CHEST. Head CT 03/27/20 15:30 IMPRESSION: NO ACUTE INTRACRANIAL IMAGING FINDINGS. EVIDENCE OF ACUTE STROKE: NO. Head MRI 03/28/20 00:00 IMPRESSION: No acute findings. EVIDENCE OF ACUTE STROKE: NO. Assessment and Plan - Diagnosis (1) Chest pain Qualifiers: Chest pain type: unspecified Qualified Code(s): R07.9 - Chest pain, unspecified Is this a current diagnosis for this admission?: Yes Plan: Patient presents with 3 days duration of intermittent chest pain cardiac enzymes are negative x [address]-T wave changes consistent with ischemia Placed her on aspirin, high intensity statin On telemetry cardio consulted stress test ordered (2) TIA (transient ischemic attack) Qualifiers: Transient cerebral ischemia type: unspecified Qualified Code(s): G45.9 - Transient cerebral ischemic attack, unspecified Is this a current diagnosis for this admission?: Yes Plan: Patient reports interval worsening of dysarthria Has no new weakness of extremities CT head without contrast was negative for ICH MRI negative Neurochecks, fall precaution, seizure precaution, aspiration precaution Patient has passed swallow eval Continue Plavix, statin and aspirin PT, OT, speech therapy (3) Diabetes mellitus Qualifiers: Diabetes mellitus type: type 2 Diabetes mellitus nursing home insulin use: with nursing home use Diabetes mellitus complication status: with neurologic complications Diabetes mellitus complication detail: with other neurological complication Qualified Code(s): E11.49 - Type 2 diabetes mellitus with other diabetic neurological complication; Z79.4 - [facility] (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 of insulin Is this a current diagnosis for this admission?: Yes Plan: - A1C 6.6 - resumed Tresiba and with meals insulin - accucheck ACHS - hypoglycemia protocol (4) History of CVA (cerebrovascular accident) Is this a current diagnosis for this admission?: Yes Plan: Patient has history of CVA with left-sided residual weakness and dysarthria Continue Plavix, aspirin and atorvastatin (5) Dysarthria Is this a current diagnosis for this admission?: Yes Plan: - residual from prior stroke - improved - MRI negative (6) Hypertension Is this a current diagnosis for this admission?: Yes Plan: - Losartan resumed - Time Time Spent with patient: 25-34 minutes Anticipated Discharge Disposition: Home, Self Care Anticipated Discharge Timeframe: within 48 hours
[2020-03-28] MEDS ORDERED: INSULIN DEGLUDEC 70 UNIT SUBCUT SCH (19:15)
[2020-03-28] MEDS ORDERED: DEXTROSE 40% GEL 15 GM TUBE X 2 PO PRN (19:30)
[2020-03-28] MEDS ORDERED: DEXTROSE 50%-WATER SYRINGE 25 GM/50 ML DOSE IV PRN (19:30)
[2020-03-28] MEDS ORDERED: DEXTROSE 40% GEL 15 GM TUBE PO PRN (19:30)
[2020-03-28] MEDS ORDERED: DEXTROSE 50%-WATER SYRINGE 12.5 GM/25 ML DOSE IV PRN (19:30)
[2020-03-28] MEDS ORDERED: GLUCAGON,HUMAN RECOMB 1 MG INJ IM PRN (19:30)
[2020-03-28] MEDS ORDERED: (PENDING PHARMACY ID) (Linaclotide [Linzess] 72 MCG) PO SCH (20:00)
[2020-03-28] MEDS ORDERED: QUETIAPINE FUMARATE 100 MG TABLET PO SCH (22:00)
[2020-03-28] MEDS: INSULIN LISPRO 100 UNIT/ML 3 ML VIAL SUBCUT SCH (22:33)
[2020-03-28] MEDS: CARBAMAZEPINE 200 MG TAB.SR.12H PO SCH (22:33)
[2020-03-28] MEDS: ATORVASTATIN CALCIUM 40 MG TABLET PO SCH (22:34)
[2020-03-29] MEDS ORDERED: HYDROCHLOROTHIAZIDE 25 MG TABLET PO SCH (08:00)
[2020-03-29] MEDS ORDERED: HYDROCHLOROTHIAZIDE 50 MG PO SCH (08:00)
[2020-03-29] MEDS ORDERED: LOSARTAN POTASSIUM 50 MG TABLET PO SCH (10:00)
[2020-03-29] MEDS ORDERED: (PENDING PHARMACY ID) (Linaclotide [Linzess] 72 MCG) PO SCH (10:00)
[2020-03-29] MEDS ORDERED: CARBAMAZEPINE 100 MG TAB.SR.12H PO SCH (10:00)
[2020-03-29] MEDS: ONDANSETRON HCL INJ/PF 4 MG/2 ML SDV IV PRN (10:41)
[2020-03-29] MEDS: INSULIN LISPRO 100 UNIT/ML 3 ML VIAL SUBCUT SCH ×3 (10:44→16:52)
[2020-03-29] MEDS: METOPROLOL SUCCINATE 25 MG TAB.SR.24H PO SCH (10:45)
[2020-03-29] MEDS: ASPIRIN 81 MG TABLET, CHEWABLE PO SCH (10:45)
[2020-03-29] MEDS: CLOPIDOGREL BISULFATE 75 MG TABLET PO SCH (10:45)
[2020-03-29] MEDS: ENOXAPARIN SODIUM INJ 40 MG/0.4 ML DISP.SYRIN SUBCUT SCH (10:45)
[2020-03-29] MEDS: PREGABALIN 50 MG CAPSULE PO SCH (10:45)
[2020-03-29] MEDS: CARBAMAZEPINE 200 MG TAB.SR.12H PO SCH (10:47)
[2020-03-29] MEDS ORDERED: REGADENOSON INJ 0.4 MG/5 ML DISP.SYRIN IV ONE (11:56)
[2020-03-29] MEDS ORDERED: BUSPIRONE HCL 10 MG TABLET PO SCH (12:00)
[2020-03-29] MEDS: ACETAMINOPHEN 325 MG TABLET PO PRN (15:22)
[2020-03-29] MEDS ORDERED: HALOPERIDOL LACTATE INJ 5 MG/1 ML VIAL IV PRN (16:05)
--- NOTE | 2020-03-29 17:19 | PDOC PROGRESS REPORT ---
Subjective Date:: 03/29/20 Subjective:: ORLY OSEI is a 60 year old female with a history of CVA with residual le ft-sided body weakness, type 2 diabetes, hyperlipidemia and hypertension presents to ED with 3 days duration of intermittent left-sided chest pain which she describes at heaviness, 8/10 intensity, nonradiating, nonexertional, with no clear aggravating or relieving factor. She says the pain can happen anytime while she is lying on her bed and it can last for hours. Patient also reports that she has noticed that her speech has worsened since this morning and has been having difficulty of saying words. She denies any new weakness of extremities, headache, change in her vision, history of head injury or falls. She also denies shortness of breath, palpitation, dizziness, orthopnea, PND, leg swelling, cough, fever, chills. D2 hospital stay. She was seen and examined at bedside. Reports that her slurring of speech is now back at baseline. She still reports pressure like chest pain. Troponin has been negative x 2 and EKG has not shown any ST changes. MRI head negative for acute stroke. Awaiting echo and carotid US. She was started on aspirin and statin, she is already on plavix. Cardiology was consulted for persistent chest pain. D3 hospital stay 03/29/20. She was seen and examined at bedside. doing well, for discharge. Reason For Visit: CHEST PAIN,POSSIBLE TIA Physical Exam Vital Signs: Temp Pulse Resp BP Pulse Ox 97.9 F 85 16 118/68 94 03/29/20 15:34 03/29/20 15:34 03/29/20 15:34 03/29/20 15:34 03/29/20 15:34 Intake & Output 03/28/20 03/29/20 03/30/20 06:59 06:59 06:59 Intake Total 1340 562 760 Output Total 2 Balance 1338 562 760 Weight 86 kg 86.2 kg General appearance: PRESENT: no acute distress, cooperative Head exam: PRESENT: atraumatic, normocephalic Eye exam: PRESENT: EOMI, PERRLA Mouth exam: PRESENT: moist Neck exam: PRESENT: full ROM Cardiovascular exam: PRESENT: RRR, +S1, +S2 Pulses: PRESENT: +2 pedal pulses bilateral GI/Abdominal exam: PRESENT: normal bowel sounds Extremities exam: PRESENT: clubbing Musculoskeletal exam: PRESENT: full ROM Neurological exam: PRESENT: alert, awake, oriented to person, oriented to place, oriented to time Psychiatric exam: PRESENT: normal mood Results Laboratory Results: 03/28/20 05:54 03/28/20 05:54 03/27/20 03/27/20 03/28/20 16:10 19:30 01:32 Troponin I < 0.012 < 0.012 < 0.012 Impressions: Chest X-Ray 03/27/20 14:36 IMPRESSION: NO ACUTE RADIOGRAPHIC FINDING IN THE CHEST. Head CT 03/27/20 15:30 IMPRESSION: NO ACUTE INTRACRANIAL IMAGING FINDINGS. EVIDENCE OF ACUTE STROKE: NO. Head MRI 03/28/20 00:00 IMPRESSION: No acute findings. EVIDENCE OF ACUTE STROKE: NO. Assessment and Plan - Diagnosis (1) Chest pain Qualifiers: Chest pain type: unspecified Qualified Code(s): R07.9 - Chest pain, unspecified Is this a current diagnosis for this admission?: Yes Plan: Patient presents with 3 days duration of intermittent chest pain cardiac enzymes are negative x [address]-T wave changes consistent with ischemia Placed her on aspirin, high intensity statin On telemetry cardio consulted stress test ordered (2) TIA (transient ischemic attack) Qualifiers: Transient cerebral ischemia type: unspecified Qualified Code(s): G45.9 - Transient cerebral ischemic attack, unspecified Is this a current diagnosis for this admission?: Yes Plan: Patient reports interval worsening of dysarthria Has no new weakness of extremities CT head without contrast was negative for ICH MRI negative Neurochecks, fall precaution, seizure precaution, aspiration precaution Patient has passed swallow eval Continue Plavix, statin and aspirin PT, OT, speech therapy (3) Diabetes mellitus Qualifiers: Diabetes mellitus type: type 2 Diabetes mellitus terminal superintendent insulin use: with alf use Diabetes mellitus complication status: with neurologic complications Diabetes mellitus complication detail: with other neurological complication Qualified Code(s): E11.49 - Type 2 diabetes mellitus with other diabetic neurological complication; Z79.4 - terminal 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 (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 of insulin Is this a current diagnosis for this admission?: Yes Plan: - A1C 6.6 - resumed Tresiba and with meals insulin - accucheck ACHS - hypoglycemia protocol (4) History of CVA (cerebrovascular accident) Is this a current diagnosis for this admission?: Yes Plan: Patient has history of CVA with left-sided residual weakness and dysarthria Continue Plavix, aspirin and atorvastatin (5) Dysarthria Is this a current diagnosis for this admission?: Yes Plan: - residual from prior stroke - improved - MRI negative (6) Hypertension Is this a current diagnosis for this admission?: Yes Plan: - Losartan resumed - Time Time Spent with patient: 15-24 minutes Anticipated Discharge Disposition: Home, Self Care Anticipated Discharge Timeframe: within 48 hours
[2020-03-29 17:53] VITALS: BP 113/74
--- NOTE | 2020-03-29 20:16 | PDOC DISCHARGE SUMMARY ---
Impression - Admit/DC Date/PCP Admission Date/Primary Care Provider: 03/27/20 21:30 KATERYNA GONSALEZ MD Discharge Date: 03/29/20 - Discharge Diagnosis (1) Chest pain Is this a current diagnosis for this admission?: Yes (2) TIA (transient ischemic attack) Is this a current diagnosis for this admission?: Yes (3) Diabetes mellitus Is this a current diagnosis for this admission?: Yes (4) History of CVA (cerebrovascular accident) Is this a current diagnosis for this admission?: Yes (5) Dysarthria Is this a current diagnosis for this admission?: Yes (6) Hypertension Is this a current diagnosis for this admission?: Yes - Additional Information Resuscitation Status: Full Code Discharge Diet: As Tolerated Discharge Activity: Activity As Tolerated Referrals: KATERYNA GONSALEZ MD [Primary Care Provider] - Follow up as needed Prescriptions: Buspirone HCl [Buspar 10 mg Tablet] 10 mg PO Q12 30 Days #60 tablet Home Medications: Metoprolol Succinate [Toprol Xl 25 mg Tab.sr] 25 mg PO DAILY 05/04/19 [place]-3 Fatty Acids/Fish Oil [[place] 3 Fish Oil Softgel] 1 each PO DAILY 05/04/19 Quetiapine Fumarate [Seroquel 100 mg Tablet] 100 mg PO QHS 05/04/19 Tumeric 500 mg PO DAILY 05/04/19 Insulin Degludec [Tresiba Flextouch U-100] 70 unit SQ BID 07/02/19 Dapagliflozin Propanediol [Farxiga] 10 mg PO DAILY 08/04/19 Pantoprazole Sodium [Protonix [address] Tablet] 20 mg PO QAM 11/14/19 Clopidogrel Bisulfate [Plavix 75 mg Tablet] 75 mg PO DAILY #30 tablet 11/15/19 Carbamazepine [Carbamazepine ER] 200 mg PO BID 01/01/20 Linaclotide [Linzess] 72 mcg PO DAILY 01/02/20 Losartan Potassium 100 mg PO DAILY 01/02/20 Atorvastatin Calcium [Lipitor 80 mg Tablet] 80 mg PO QHS 30 Days #30 tablet 01/03/20 Hydrochlorothiazide [Hydrodiuril 50 mg Tablet] 50 mg PO QAM 03/28/20 Insulin Aspart [Novolog Flexpen] 15 unit SUBCUT AC 03/28/20 Meclizine HCl [Antivert 25 mg Tablet] 12.5 mg PO TIDP PRN 03/28/20 Buspirone HCl [Buspar 10 mg Tablet] 10 mg PO Q12 30 Days #60 tablet 03/29/20 History of Present Illiness History of Present Illness: ORLY OSEI is a 60 year old female with a history of CVA with residual left-sided body weakness, type 2 diabetes, hyperlipidemia and hypertension presents to ED with 3 days duration of intermittent left-sided chest pain which she describes at heaviness, 8/10 intensity, nonradiating, nonexertional, with no clear aggravating or relieving factor. She says the pain can happen anytime while she is lying on her bed and it can last for hours. Patient also reports that she has noticed that her speech has worsened since this morning and has been having difficulty of saying words. She denies any new weakness of extremities, headache, change in her vision, history of head injury or falls. She also denies shortness of breath, palpitation, dizziness, orthopnea, PND, leg swelling, cough, fever, chills Hospital Course Hospital Course: D2 hospital stay. She was seen and examined at bedside. Reports that her slurring of speech is now back at baseline. She still reports pressure like chest pain. Troponin has been negative x 2 and EKG has not shown any ST changes. MRI head negative for acute stroke. Awaiting echo and carotid US. She was started on aspirin and statin, she is already on plavix. Cardiology was consulted for persistent chest pain. D3 hospital stay 03/29/20. She was seen and examined at bedside. She reports that her chest pain has resolved and she thinks she gets this when she has panic attacks.Cardiolite stress test was unremarkable, MRI negative for new stroke. She was discharged on buspar for anxwity, other medications were continued. Physical Exam Vital Signs: Temp Pulse Resp BP Pulse Ox 97.9 F 85 16 113/74 94 03/29/20 17:50 03/29/20 17:50 03/29/20 17:50 03/29/20 17:50 03/29/20 17:50 Intake & Output 03/28/20 03/29/20 03/30/20 06:59 06:59 06:59 Intake Total 1340 562 760 Output Total 2 Balance 1338 562 760 Weight 86 kg 86.2 kg General appearance: PRESENT: no acute distress, cooperative Head exam: PRESENT: atraumatic, normocephalic Eye exam: PRESENT: EOMI, PERRLA Ear exam: PRESENT: normal external ear exam Mouth exam: PRESENT: moist Neck exam: PRESENT: full ROM. ABSENT: JVD Respiratory exam: PRESENT: clear to auscultation gerardo, symmetrical, unlabored. ABSENT: rales Cardiovascular exam: PRESENT: RRR, +S1, +S2 GI/Abdominal exam: PRESENT: normal bowel sounds, soft. ABSENT: rebound, tenderness Extremities exam: PRESENT: full ROM Musculoskeletal exam: PRESENT: full ROM Neurological exam: PRESENT: alert, awake, oriented to person, oriented to place, oriented to time, other - With residual slurring of speech from prior stroke Psychiatric exam: PRESENT: normal mood Skin exam: PRESENT: normal color Results Laboratory Results: WBC 5.5 10^3/uL (4.0-10.5) 03/28/20 05:54 RBC 4.94 10^6/uL (3.72-5.28) 03/28/20 05:54 Hgb 13.8 g/dL (12.0-15.5) 03/28/20 05:54 Hct 39.8 % (36.0-47.0) 03/28/20 05:54 MCV 81 fl (80-97) 03/28/20 05:54 MCH 27.8 pg (27.0-33.4) 03/28/20 05:54 MCHC 34.5 g/dL (32.0-36.0) 03/28/20 05:54 RDW 15.2 % (11.5-14.0) H 03/28/20 05:54 Plt Count 188 10^3/uL (150-450) 03/28/20 05:54 Lymph % (Auto) 25.4 % (13-45) 03/27/20 16:10 [place] % (Auto) 12.1 % (3-13) 03/27/20 16:10 Eos % (Auto) 2.2 % (0-6) 03/27/20 16:10 Baso % (Auto) 0.7 % (0-2) 03/27/20 16:10 Absolute Neuts (auto) 4.0 10^3/uL (1.7-8.2) 03/27/20 16:10 Absolute Lymphs (auto) 1.7 10^3/uL (0.5-4.7) 03/27/20 16:10 Absolute Monos (auto) 0.8 10^3/uL (0.1-1.4) 03/27/20 16:10 Absolute Eos (auto) 0.1 10^3/uL (0.0-0.6) 03/27/20 16:10 Absolute Basos (auto) 0.0 10^3/uL (0.0-0.2) 03/27/20 16:10 Seg Neutrophils % 59.6 % (42-78) 03/27/20 16:10 Sodium 136.8 mmol/L (137-145) L 03/28/20 05:54 Potassium 3.4 mmol/L (3.6-5.0) L 03/28/20 05:54 Chloride 97 mmol/L (98-107) L 03/28/20 05:54 Carbon Dioxide 28 mmol/L (22-30) 03/28/20 05:54 Anion Gap 12 (5-19) 03/28/20 05:54 BUN 17 mg/dL (7-20) 03/28/20 05:54 Creatinine 0.63 mg/dL (0.52-1.25) 03/28/20 05:54 Est GFR ( Amer) > 60 (>60) 03/28/20 05:54 Est GFR (MDRD) Non-Af > 60 (>60) 03/28/20 05:54 Glucose 198 mg/dL (75-110) H 03/28/20 05:54 POC Glucose 305 mg/dL (70-110) H 03/29/20 16:27 Hemoglobin A1c % 6.6 % (4.7-6.0) H 03/28/20 05:54 Calcium 9.3 mg/dL (8.4-10.2) 03/28/20 05:54 Magnesium 2.3 mg/dL (1.6-2.3) 03/27/20 16:10 Total Bilirubin 0.7 mg/dL (0.2-1.3) 03/27/20 16:10 Direct Bilirubin 0.5 mg/dL (0.0-0.4) H 03/27/20 16:10 Neonat Total Bilirubin Not Reportable 03/27/20 16:10 Neonat Direct Bilirubin Not Reportable 03/27/20 16:10 Neonat Indirect Bili Not Reportable 03/27/20 16:10 AST 35 U/L (14-36) 03/27/20 16:10 ALT 31 U/L (<35) 03/27/20 16:10 Alkaline Phosphatase 69 U/L (38-126) 03/27/20 16:10 Troponin I < 0.012 ng/mL 03/28/20 01:32 NT-Pro-B Natriuret Pep 80 pg/mL (<125) 03/29/20 17:00 Total Protein 7.6 g/dL (6.3-8.2) 03/27/20 16:10 Albumin 4.8 g/dL (3.5-5.0) 03/27/20 16:10 Triglycerides 130 mg/dL (<150) 03/28/20 05:54 Cholesterol 117.57 mg/dL (0-200) 03/28/20 05:54 LDL Cholesterol Direct 51 mg/dL (<100) 03/28/20 05:54 VLDL Cholesterol 26.0 mg/dL (10-31) 03/28/20 05:54 HDL Cholesterol 45 mg/dL (>40) 03/28/20 05:54 TSH 2.04 uIU/mL (0.47-4.68) 03/27/20 16:10 03/27/20 03/27/20 03/28/20 16:10 19:30 01:32 Troponin I < 0.012 < 0.012 < 0.012 NT-Pro-B Natriuret Pep 03/29/20 17:00 Troponin I NT-Pro-B Natriuret Pep 80 Impressions: Chest X-Ray 03/27/20 14:36 IMPRESSION: NO ACUTE RADIOGRAPHIC FINDING IN THE CHEST. Head CT 03/27/20 15:30 IMPRESSION: NO ACUTE INTRACRANIAL IMAGING FINDINGS. EVIDENCE OF ACUTE STROKE: NO. Head MRI 03/28/20 00:00 IMPRESSION: No acute findings. EVIDENCE OF ACUTE STROKE: NO. Plan Health Concerns: She was started on BuSpar for her anxiety. Advised to follow-up with primary care physician Advised to follow-up with a psychiatrist for her anxiety Time Spent: Less than 30 Minutes Stroke Is this a Stroke Patient?: Yes Stroke Pt being discharged on Anti-thrombolytic therapy?: Yes Stroke Pt being discharged on Anti-coagulation therapy?: No Reason(s) for not prescribing Anti-coagulation therapy:: Not indicated Stroke Pt being discharged on Statins?: Yes Acute Heart Failure Is this a Heart Failure Patient?: No
--- NOTE | 2020-03-29 20:32 | PDOC CONSULTATION ---
Consultation Consult Date: 03/29/20 Attending physician:: ELIJAH ROSALES Provider Consulted: NIKKI SINGH Consult reason:: Chest pain History of Present Illness Admission Date/PCP: 03/27/20 21:30 KATERYNA GONSALEZ MD Patient complains of: Chest pain History of Present Illness: ORLY OSEI is a 60 year old female With the following active problems 1. Systemic hypertension 2. Dyslipidemia 3. Diabetes mellitus 4. [id number]-[id number] deficits Patient was admitted to the hospital with complaints of having had chest pain intermittently for approximately 3 days. Since hospital admission cardiac biomarkers have been negative. Patient underwent nuclear stress testing. At the time of my evaluation patient reports that her chest pain is resolved. She complains of minor headache. She now attributes the symptoms to probable anxiety. She does not endorse tobacco use. No familial illnesses reported to me. Review of systems positive for headache as well as chest pain. Chest pain is resolved. Full 11 review of systems was asked. Pertinent positives noted here and in the HPI all other systems negative. Past Medical History Cardiac Medical History: Reports: Hyperlipidema, Hypertension Pulmonary Medical History: Reports: Asthma Neurological Medical History: Reports: Migraine Endocrine Medical History: Reports: Diabetes Mellitus Type 1, Diabetes Mellitus Type 2 Denies: Hyperthyroidism, Hypothyroidism Malignancy Medical History: Reports: Cervical Cancer GI Medical History: Reports: Gastroesophageal Reflux Disease Denies: Cirrhosis, Hepatitis Musculoskeltal Medical History: Reports: Arthritis, Fibromyalgia Psychiatric Medical History: Reports: Depression Past Surgical History Past Surgical History: Reports: Section - 2, Cholecystectomy, Herniorrhaphy, Hysterectomy, Orthopedic Surgery - bilateral toes and elbows left knee twice, Tubal Ligation, Other - Ventral hernia and pseudocyst removal Denies: Appendectomy Social History Lives with: Family Smoking Status: Never Smoker Last Time Smoked: 16 years ago Frequency of Alcohol Use: None Hx Recreational Drug Use: No Drugs: None Hx Prescription Drug Abuse: No - Advance Directive Resuscitation Status: Full Code Family History Family History: Arthritis, CVA, DM, Hyperlipidemia, Hypertension, Malignancy, Thyroid Disfunction Parental Family History Reviewed: Yes - No familial illnesses. Children Family History Reviewed: NA Sibling(s) Family History Reviewed.: NA Medication/Allergy Home Medications: Metoprolol Succinate [Toprol Xl 25 mg Tab.sr] 25 mg PO DAILY 05/04/19 [place]-3 Fatty Acids/Fish Oil [[place] 3 Fish Oil Softgel] 1 each PO DAILY 05/04/19 Quetiapine Fumarate [Seroquel 100 mg Tablet] 100 mg PO QHS 05/04/19 Tumeric 500 mg PO DAILY 05/04/19 Insulin Degludec [Tresiba Flextouch U-100] 70 unit SQ BID 07/02/19 Dapagliflozin Propanediol [Farxiga] 10 mg PO DAILY 08/04/19 Pantoprazole Sodium [Protonix [address] Tablet] 20 mg PO QAM 11/14/19 Clopidogrel Bisulfate [Plavix 75 mg Tablet] 75 mg PO DAILY #30 tablet 11/15/19 Carbamazepine [Carbamazepine ER] 200 mg PO BID 01/01/20 Linaclotide [Linzess] 72 mcg PO DAILY 01/02/20 Losartan Potassium 100 mg PO DAILY 01/02/20 Atorvastatin Calcium [Lipitor 80 mg Tablet] 80 mg PO QHS 30 Days #30 tablet 01/03/20 Hydrochlorothiazide [Hydrodiuril 50 mg Tablet] 50 mg PO QAM 03/28/20 Insulin Aspart [Novolog Flexpen] 15 unit SUBCUT AC 03/28/20 Meclizine HCl [Antivert 25 mg Tablet] 12.5 mg PO TIDP PRN 03/28/20 Buspirone HCl [Buspar 10 mg Tablet] 10 mg PO Q12 30 Days #60 tablet 03/29/20 Allergies/Adverse Reactions: Penicillins Allergy (Unknown, Verified 03/13/20 08:46) cephalexin monohydrate [From Keflex] Allergy (Verified 03/13/20 08:46) ciprofloxacin [From Cipro] Allergy (Verified 03/13/20 08:46) codeine Allergy (Verified 03/13/20 08:46) latex [Latex] Allergy (Verified 03/13/20 08:46) metformin Allergy (Verified 03/13/20 08:46) nitrofurantoin macrocrystalline [From Macrodantin] Allergy (Verified 03/13/20 08:46) penicillin G Allergy (Verified 03/13/20 08:46) Sulfa (Sulfonamide Antibiotics) Allergy (Verified 03/13/20 08:46) tetracycline [Tetracycline] Allergy (Verified 03/13/20 08:46) nitroglycerin [From Nitrostat] Adverse Reaction (Verified 03/13/20 08:46) Review of Systems Nose, Mouth, and Throat: PRESENT: as per HPI Cardiovascular: PRESENT: chest pain Respiratory: PRESENT: as per HPI. ABSENT: cough, dyspnea, hemoptysis, sputum, other Integumentary: ABSENT: as per HPI, diaphoresis, erythema, lesions, pruritus, rash, wounds, other Neurological: PRESENT: other - Headache. ABSENT: as per HPI, abnormal gait - Headache, abnormal movements, abnormal speech, confusion, convulsions, dizziness, focal weakness, frequent falls, lack of coordination, memory loss, numbness, paresthesias, restless legs, syncope, tingling, tremor(s), vertigo, weakness Psychiatric: PRESENT: anxiety. ABSENT: as per HPI, depression, hallucinations, homidical ideation, suicidal ideation, other Physical Exam Vital Signs: Temp Pulse Resp BP Pulse Ox 97.9 F 85 16 113/74 94 03/29/20 17:50 03/29/20 17:50 03/29/20 17:50 03/29/20 17:50 03/29/20 17:50 Intake & Output 03/28/20 03/29/20 03/30/20 06:59 06:59 06:59 Intake Total 1340 562 760 Output Total 2 Balance 1338 562 760 Weight 86 kg 86.2 kg General appearance: PRESENT: no acute distress, cooperative, well-nourished Head exam: PRESENT: atraumatic, normocephalic Eye exam: PRESENT: conjunctiva pink, EOMI Mouth exam: PRESENT: moist Respiratory exam: PRESENT: symmetrical, unlabored Cardiovascular exam: PRESENT: RRR, +S1 Pulses: PRESENT: normal radial pulses Rectal exam: PRESENT: deferred Neurological exam: PRESENT: alert, awake, oriented to person, oriented to place, oriented to time, oriented to situation Psychiatric exam: PRESENT: appropriate affect Skin exam: PRESENT: dry, intact, normal color Results Laboratory Results: 03/28/20 05:54 03/28/20 05:54 03/27/20 03/27/20 03/28/20 16:10 19:30 01:32 Troponin I < 0.012 < 0.012 < 0.012 NT-Pro-B Natriuret Pep 03/29/20 17:00 Troponin I NT-Pro-B Natriuret Pep 80 EKG Comments: Troponin X3 is negative Twelve-lead EKG 03/27/2020. Independently viewed by me. Sinus rhythm, 73 bpm, inferior Q waves, borderline, normal AV conduction, QTC is 463 ms. Impressions: Chest X-Ray 03/27/20 14:36 IMPRESSION: NO ACUTE RADIOGRAPHIC FINDING IN THE CHEST. Head CT 03/27/20 15:30 IMPRESSION: NO ACUTE INTRACRANIAL IMAGING FINDINGS. EVIDENCE OF ACUTE STROKE: NO. Head MRI 03/28/20 00:00 IMPRESSION: No acute findings. EVIDENCE OF ACUTE STROKE: NO. Assessment & Plan - Diagnosis (1) Chest pain Is this a current diagnosis for this admission?: Yes Plan: Atypical atypical for angina. Indeed a risk factors for coronary artery disease would still exist. However cardiac biomarkers are negative and the EKG is nondiagnostic for myocardial ischemia. Await results of stress test. (2) Diabetes mellitus Qualifiers: Diabetes mellitus type: type 2 Diabetes mellitus termite inspector insulin use: with termite inspector use Diabetes mellitus complication status: with neurologic complications Diabetes mellitus complication detail: with other neurological complication Qualified Code(s): E11.49 - Type 2 diabetes mellitus with other diabetic neurological complication; Z79.4 - FDC (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 of insulin Is this a current diagnosis for this admission?: Yes Plan: This is being managed by the primary team. (3) History of CVA (cerebrovascular accident) Is this a current diagnosis for this admission?: Yes Plan: Stable deficits. No new ones. Continue modifying risk factors for stroke including treatment of hypertension dyslipidemia and diabetes mellitus.
[2020-03-29] MEDS ORDERED: INSULIN GLARGINE,HUM.REC.ANLOG 1,000 UNIT/10 ML VIAL SUBCUT SCH (22:00)
--- NOTE | 2020-03-30 00:06 | DRAGON STRESS TEST REPORT ---
Intravenous Lexiscan Cardiolite stress test using single photon emmision computerized tomography. Date of procedure: 03/29/2020.Ordering Provider: Darius Emerson. Patient's status: In Patient. Indication: Chest pain. Coronary risk factors: Age, hypertension, diabetes mellitus, and dyslipidemia. Resting EKG: SINUS RHYTHM. Poor R wave leads V1 to V6. Stress EKG: No changes of ischemia. The patient had no chest pain discomfort. There were no arrhythmias seen. Reason for termination: Protocol. Conclusions: Normal EKG and hemodynamic response to IV Lexiscan. Nuclear data: At rest the patient was given 12.56 millicuries of technetium 99m sestamibi injected intravenously. As per protocol rest non gated SPECT images were obtained. Subsequently the patient was given intravenous Lexiscan at a dose of 0.4 mg in 5 mL intravenously, followed by flush with normal saline. Subsequently the stress dose of 37.8 millicuries of technetium 99m sestamibi was injected intravenously. As per protocol stress gated images were obtained. Nuclear interpretation: Review of images showed that all segments of the myocardium had normal perfusion at rest, and normal perfusion post stress with IV Lexiscan. All segments of the myocardium had normal motion, contraction, and thickening by gated study. T. I D. ratio was normal at 1.02. There is no transient ischemic dilatation of the left ventricle. Computer read rest, and stress left ventricular ejection fraction were 74%, and 71%, respectively. . Conclusion: 1. There is no scintigraphic evidence of Lexiscan induced myocardial ischemia. 2. There is no scintigraphic evidence of myocardial infarction/scar. Recommendations: Aggressive risk factor modification, and treating the underlying co- morbidities. MTDD
== END 2020-03-29 18:21 | disposition home or self-care (01) ==
LOC: ER 13:47 → EH 21:30 → 3S 23:13
PROVIDERS: ADMIT Student in an Organized Health Care Education/Training Program; ATTEND Internal Medicine
DX: R07.89 Other chest pain (principal); G45.9 Transient cerebral ischemic attack, unspecified; E11.49 Type 2 diabetes mellitus with other diabetic neurological complication; I69.354 Hemiplegia and hemiparesis following cerebral infarction affecting left non-dominant side; I69.322 Dysarthria following cerebral infarction; I10 Essential (primary) hypertension; F41.9 Anxiety disorder, unspecified; K21.9 Gastro-esophageal reflux disease without esophagitis; M79.7 Fibromyalgia; M19.90 Unspecified osteoarthritis, unspecified site; Z79.899 Other long term (current) drug therapy; Z79.4 Long term (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 of insulin; Z79.02 Long term (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 of antithrombotics/antiplatelets; E78.5 Hyperlipidemia, unspecified; Z85.41 Personal history of malignant neoplasm of cervix uteri; Z82.3 Family history of stroke; R00.2 Palpitations; R11.0 Nausea
CPT/HCPCS: 93005 ×2; 99285; 96361; 96374; 96375; 36415 ×3; 82962 ×2; 83735; 84443; 85025; 85027; 80048; 80053; 84484 ×2; 83036; 80061; 83880; 93017; 70551; 71045; 78452; 70450; 93010 ×2; 97162; 92522; 97535; 97166; G0378 ×4; A9500; J2785; J3490 ×5; J3410; J1815 ×2; J2270 ×2; J1650 ×2; J2405 ×3; J7030; Q9969

== ENCOUNTER 2020-04-20 20:06 | Emergency (ER) | payer OTHER ==
[2020-04-20] MEDS ORDERED: HYDROCODONE/ACETAMINOPHEN 5-325 MG TABLET PO ONE (21:22)
--- NOTE | 2020-04-20 21:26 | ER Document Report ---
ED Medical Screen (RME) - General Chief Complaint: Arm Pain Stated Complaint: ARM PAIN Time Seen by Provider: 04/20/20 21:12 Primary Care Provider: KATERYNA GONSALEZ MD [Primary Care Provider] - Follow up as needed Mode of Arrival: Wheelchair Information source: Patient Notes: Patient presents complaining of tender nodular lesion to the right forearm that she noticed yesterday. Patient denies any injury. Patient denies any heavy exertional activities. Patient with a history of diabetes, neuropathy, CVA, gastroparesis, pancreatitis and carpal tunnel syndrome. Patient states that this pain is not typical of her carpal tunnel. I have greeted and performed a rapid initial assessment of this patient. A comprehensive ED assessment and evaluation of the patient, analysis of test results and completion of the medical decision making process will be conducted by additional ED providers. TRAVEL OUTSIDE OF THE [place] IN LAST 30 DAYS: No - Related Data Allergies/Adverse Reactions: Penicillins Allergy (Unknown, Verified 03/13/20 08:46) cephalexin monohydrate [From Keflex] Allergy (Verified 03/13/20 08:46) ciprofloxacin [From Cipro] Allergy (Verified 03/13/20 08:46) codeine Allergy (Verified 03/13/20 08:46) latex [Latex] Allergy (Verified 03/13/20 08:46) metformin Allergy (Verified 03/13/20 08:46) nitrofurantoin macrocrystalline [From Macrodantin] Allergy (Verified 03/13/20 08:46) penicillin G Allergy (Verified 03/13/20 08:46) Sulfa (Sulfonamide Antibiotics) Allergy (Verified 03/13/20 08:46) tetracycline [Tetracycline] Allergy (Verified 03/13/20 08:46) nitroglycerin [From Nitrostat] Adverse Reaction (Verified 03/13/20 08:46) Past Medical History - Social History Family history: Reviewed & Not Pertinent - Past Medical History Cardiac Medical History: Reports: Hx Hypercholesterolemia, Hx Hypertension Pulmonary Medical History: Reports: Hx Asthma Neurological Medical History: Reports: Hx Cerebrovascular Accident, Hx Migraine Endocrine Medical History: Reports: Hx Diabetes Mellitus Type 1, Hx Diabetes Mellitus Type 2. Denies: Hx Hyperthyroidism, Hx Hypothyroidism Renal/ Medical History: Denies: Hx Peritoneal Dialysis Malignancy Medical History: Reports: Hx Cervical Cancer GI Medical History: Reports: Hx Gastroesophageal Reflux Disease. Denies: Hx Cirrhosis, Hx Hepatitis Musculoskeltal Medical History: Reports Hx Arthritis, Reports Hx Fibromyalgia, Reports Hx Musculoskeletal Deformity, Reports Hx Musculoskeletal Trauma Psychiatric Medical History: Reports: Hx Anxiety, Hx Depression Traumatic Medical History: Reports: Hx Fractures - Facial fractures bilateral toes elbow and left knee Infectious Medical History: Denies: Hx Hepatitis Past Surgical History: Reports: Hx Abdominal Surgery - hernia, Hx Section - 2, Hx Cholecystectomy, Hx Herniorrhaphy, Hx Hysterectomy, Hx Orthopedic Surgery - bilateral toes and elbows left knee twice, Hx Tubal Li gation, Other - Ventral hernia and pseudocyst removal. Denies: Hx Appendectomy - Immunizations Immunizations up to date: Yes Hx Diphtheria, Pertussis, Tetanus Vaccination: Yes Physical Exam - Vital signs Vitals: Temp Pulse Resp BP Pulse Ox 98.3 F 85 16 103/64 100 04/20/20 20:58 04/20/20 20:58 04/20/20 20:58 04/20/20 20:58 04/20/20 20:58 - Notes Notes: Tenderness to distal third of right forearm, palpable firm lesion to dorsal aspect of right forearm, no overlying erythema. Course - Vital Signs Vital signs: Temp Pulse Resp BP Pulse Ox 98.3 F 85 16 103/64 100 04/20/20 20:58 04/20/20 20:58 04/20/20 20:58 04/20/20 20:58 04/20/20 20:58 Doctor's Discharge - Discharge Referrals: KATERYNA GONSALEZ MD [Primary Care Provider] - Follow up as needed
--- NOTE | 2020-04-20 21:50 | RADIOLOGY REPORT (SQ) ---
CLINICAL INDICATION: tender nodule r FA. . TECHNIQUE: 2 view(s) were obtained of the right forearm. COMPARISON: None. FINDINGS: No acute displaced fracture is identified of the forearm. Alignment appears anatomic. Joint spaces are within normal limits for age. Surrounding soft tissues are unremarkable. If wrist or elbow are clinically in suspicion, then dedicated radiography is advised. IMPRESSION: No evidence of acute displaced fracture of the forearm. No retained radiopaque foreign body
--- NOTE | 2020-04-20 22:38 | RADIOLOGY REPORT (SQ) ---
EXAM DESCRIPTION: U/S EXTREMITY NONVASCULAR LTD RadLex: US EXTREMITY MUSCULOSKELETAL LIMITED CLINICAL HISTORY: 60 years Female; tender nodule r FA; COMPARISON: None FINDINGS: Ultrasound of the area of interest in the right forearm was performed. No nodule or discrete fluid collection is identified. No hyperemia on color Doppler. IMPRESSION: No focal lesion is identified.
--- NOTE | 2020-04-21 00:54 | ER Document Report ---
ED Extremity Problem, Upper - General Chief Complaint: Arm Pain Stated Complaint: ARM PAIN Time Seen by Provider: 04/20/20 21:12 Primary Care Provider: KATERYNA GONSALEZ MD [Primary Care Provider] - Follow up as needed Mode of Arrival: Wheelchair Notes: CHIEF COMPLAINT: Right arm discomfort for 3 days 60-year-old female presenting with dorsal right arm HPI: 60-year-old female presenting for right dorsal forearm discomfort for 3 days. No trauma. No fever. Has not taken any medications for her symptoms. Has not seen her primary care provider for her symptoms. Has history of carpal tunnel complains of chronic carpal tunnel symptoms. ROS: See HPI - all other systems were reviewed and are otherwise negative Constitutional: no fever Integumentary: no rash Allergy: no hives Musculoskeletal: + extremity pain or swelling MEDICATIONS: I agree with the patient medications as charted by the RN. ALLERGIES: I agree with the allergies as charted by the RN. PAST MEDICAL HISTORY/PAST SURGICAL HISTORY: Reviewed and agree as charted by RN. SOCIAL HISTORY: Reviewed and agree as charted by RN. FAMILY HISTORY: No significant familial comorbid conditions directly related to patient complaint EXAM: Reviewed vital signs as charted by RN. CONSTITUTIONAL: Alert and oriented and responds appropriately to questions. Well-appearing; well-nourished HEAD: Normocephalic; atraumatic EYES: Conjunctivae clear, sclerae non-icteric ENT: normal nose; no rhinorrhea; moist mucous membranes NECK: Supple without meningismus CARD: symmetric distal pulses RESP: Normal chest excursion without splinting or tachypnea ABD/GI: non-distended BACK: The back appears normal EXT: Normal ROM in all joints; no cyanosis, no effusions, no edema SKIN: Normal color for age and race; warm; dry; good turgor; there is no visible soft tissue swelling to the dorsal right forearm in the area the patient indicates as her site of discomfort. There is no overlying erythema. There is no lipoma there is no lymphadenopathy. Radial and ulnar pulses are present in the right wrist. Patient is able to flex and extend the fingers of the right hand as well as abduct the thumb. She has no bony tenderness on palpation of the right forearm. NEURO: Moves all extremities equally; Motor and sensory function intact PSYCH: The patient's mood and manner are appropriate. Grooming and personal hygiene are appropriate. MDM: 60-year-old female presenting for pain on the dorsal aspect of the right forearm there is no visible swelling or erythema here to suggest an infection. She had an ultrasound of this area that showed no acute abnormalities. She had an x-ray of the forearm that showed no acute abnormalities. Patient would like a splint for comfort which she may wear for 3 to 5 days. She is requesting pain management she is on Plavix and cannot take anti-inflammatories she received a very short course of pain medication and is to call her primary care provider tomorrow for any further pain management issues or concerns. I will give patient a referral to orthopedics as she states she does not have an orthopedist for her carpal tunnel TRAVEL OUTSIDE OF THE [place] IN LAST 30 DAYS: No - Related Data Allergies/Adverse Reactions: Penicillins Allergy (Unknown, Verified 03/13/20 08:46) cephalexin monohydrate [From Keflex] Allergy (Verified 03/13/20 08:46) ciprofloxacin [From Cipro] Allergy (Verified 03/13/20 08:46) codeine Allergy (Verified 03/13/20 08:46) latex [Latex] Allergy (Verified 03/13/20 08:46) metformin Allergy (Verified 03/13/20 08:46) nitrofurantoin macrocrystalline [From Macrodantin] Allergy (Verified 03/13/20 08:46) penicillin G Allergy (Verified 03/13/20 08:46) Sulfa (Sulfonamide Antibiotics) Allergy (Verified 03/13/20 08:46) tetracycline [Tetracycline] Allergy (Verified 03/13/20 08:46) nitroglycerin [From Nitrostat] Adverse Reaction (Verified 03/13/20 08:46) Past Medical History - General Information source: Patient - Social History Smoking Status: Never Smoker Family History: Arthritis, CVA, DM, Hyperlipidemia, Hypertension, Malignancy, Thyroid Disfunction Patient has homicidal ideation: No - Past Medical History Cardiac Medical History: Reports: Hx Hypercholesterolemia, Hx Hypertension Pulmonary Medical History: Reports: Hx Asthma Neurological Medical History: Reports: Hx Cerebrovascular Accident, Hx Migraine Endocrine Medical History: Reports: Hx Diabetes Mellitus Type 1, Hx Diabetes Mellitus Type 2. Denies: Hx Hyperthyroidism, Hx Hypothyroidism Renal/ Medical History: Denies: Hx Peritoneal Dialysis Malignancy Medical History: Reports: Hx Cervical Cancer GI Medical History: Reports: Hx Gastroesophageal Reflux Disease. Denies: Hx Cirrhosis, Hx Hepatitis Musculoskeletal Medical History: Reports Hx Arthritis, Reports Hx Fibromyalgia, Reports Hx Musculoskeletal Deformity, Reports Hx Musculoskeletal Trauma Psychiatric Medical History: Reports: Hx Anxiety, Hx Depression Traumatic Medical History: Reports: Hx Fractures - Facial fractures bilateral toes elbow and left knee Infectious Medical History: Denies: Hx Hepatitis Past Surgical History: Reports: Hx Abdominal Surgery - hernia, Hx Section - 2, Hx Cholecystectomy, Hx Herniorrhaphy, Hx Hysterectomy, Hx Orthopedic Surgery - bilateral toes and elbows left knee twice, Hx Tubal Ligation, Other - Ventral hernia and pseudocyst removal. Denies: Hx Appendectomy - Immunizations Immunizations up to date: Yes Hx Diphtheria, Pertussis, Tetanus Vaccination: Yes Physical Exam - Vital signs Vitals: Temp Pulse Resp BP Pulse Ox 98.3 F 85 16 103/64 100 04/20/20 20:58 04/20/20 20:58 04/20/20 20:58 04/20/20 20:58 04/20/20 20:58 Course - Vital Signs Vital signs: Temp Pulse Resp BP Pulse Ox 98.0 F 85 16 103/64 100 04/21/20 00:55 04/20/20 20:58 04/20/20 20:58 04/20/20 20:58 04/20/20 20:58 Procedures - Immobilization Right Arm Time completed: 01:25 Pre-Proc Neuro Vasc Exam: Normal Immobilizer type: Cock-up Performed by: PCT Post-Proc Neuro Vasc Exam: Normal, Unchanged from pre-exam Alignment checked and good: Yes Discharge - Discharge Clinical Impression: Forearm pain Qualifiers: Laterality: right Qualified Code(s): M79.631 - Pain in right forearm Condition: Stable Disposition: HOME, SELF-CARE Instructions: Splint Precautions ([facility]) Additional Instructions: Continue to ice the forearm for 5 to 10 minutes at a time 2-3 times a day do not place ice directly on the skin. Use the splint for comfort for the next 3 to 5 days. Follow-up with your primary care provider tomorrow for further pain management issues. Follow-up with orthopedics for evaluation of your forearm discomfort. Your ultrasound and x-ray today were both negative for acute findings Prescriptions: Hydrocodone/Acetaminophen [[place] 5-325 mg Tablet] 1 tab PO Q6HP PRN #6 tablet PRN Reason: Referrals: KATERYNA GONSALEZ MD [Primary Care Provider] - Follow up as needed SAHIL WILL MD [ACTIVE STAFF] - Follow up as needed
[2020-04-21 02:06] VITALS: BP 113/63
== END 2020-04-21 02:18 | disposition home or self-care (01) ==
LOC: ER 20:06
DX: M79.631 Pain in right forearm (principal); G56.00 Carpal tunnel syndrome, unspecified upper limb; I10 Essential (primary) hypertension; J45.909 Unspecified asthma, uncomplicated; E11.9 Type 2 diabetes mellitus without complications; Z79.02 Long term (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 of antithrombotics/antiplatelets; Z88.8 Allergy status to other drugs, medicaments and biological substances; Z88.2 Allergy status to sulfonamides; Z88.0 Allergy status to penicillin; Z88.1 Allergy status to other antibiotic agents; Z88.6 Allergy status to analgesic agent; Z88.5 Allergy status to narcotic agent; Z91.040 Latex allergy status
CPT/HCPCS: 76882; 99284

== ENCOUNTER 2020-06-10 16:49 | Emergency (ER) | payer OTHER ==
--- NOTE | 2020-06-10 17:09 | ER Document Report ---
ED General - General TRAVEL OUTSIDE OF THE [place] IN LAST 30 DAYS: No <VIJAY RHOADES - Last Filed: 06/10/20 18:08> <JESS DELUCA IV - Last Filed: 06/17/20 08:56> - General Stated Complaint: POSSIBLE STROKE Time Seen by Provider: 06/10/20 16:53 Primary Care Provider: KATERYNA GONSALEZ MD [Primary Care Provider] - Follow up as needed Notes: HPI: 60-year-old female that presented as a code stroke. Supposedly symptoms started at 345. She had a 6 out of 10 posterior headache as well as what she states was some lightheadedness and dizziness. [facility]. She sees an outpatient provider for vertigo. From previous notes actually written by myself as well as the hospitalist it appears the patient has some baseline left-sided weakness. Patient states she was diagnosed with a stroke around a year ago but does not remember where the stroke was located. EMS states that the patient has had some slurred speech and some left leg weakness. No fevers, cough, vomiting, chest pain, or dysuria. Patient appears to have had multiple MRIs for previous presentation this past year all of which were unremarkable. She was admitted in March for atypical chest pain and had a Cardiolite stress test which was normal. At that time they also state some baseline slurred speech and some left-sided weakness. ROS: See HPI All other review of systems reviewed and otherwise negative Reviewed vital signs and nursing note as charted by RN. PHYSICAL EXAM: CONSTITUTIONAL: Alert and oriented and responds appropriately to questions. Well-appearing; well-nourished HEAD: Normocephalic; atraumatic EYES: PERRL; full extraocular range of motion with no obvious nystagmus ENT: Normal nose; no rhinorrhea; moist mucous membranes; pharynx without lesions noted NECK: Supple without meningismus; non-tender; no carotid bruit; no cervical lymphadenopathy, no masses CARD: Regular rate and rhythm; no murmurs; symmetric distal pulses RESP: Normal chest excursion without splinting or tachypnea; breath sounds clear and equal bilaterally; no wheezes, no rhonchi, no rales ABD/GI: Normal bowel sounds; non-distended; soft, non-tender; no palpable organomegaly or masses BACK: The back appears normal and is non-tender to palpation EXT: Normal ROM in all joints; non-tender to palpation; no edema SKIN: No acute lesions noted NEURO: CN 2-12 intact with possible very minimal left facial drooping; 5 out of 5 upper extremity strength bilaterally with no drift. Patient has 1 out of 5 left leg strength with a splint to the left lower extremity. PSYCH: The patient's mood and manner are appropriate. Grooming and personal hygiene are appropriate. (VIJAY RHOADES) - Related Data Allergies/Adverse Reactions: Penicillins Allergy (Unknown, Verified 03/13/20 08:46) cephalexin monohydrate [From Keflex] Allergy (Verified 03/13/20 08:46) ciprofloxacin [From Cipro] Allergy (Verified 03/13/20 08:46) codeine Allergy (Verified 03/13/20 08:46) latex [Latex] Allergy (Verified 03/13/20 08:46) metformin Allergy (Verified 03/13/20 08:46) nitrofurantoin macrocrystalline [From Macrodantin] Allergy (Verified 03/13/20 08:46) penicillin G Allergy (Verified 03/13/20 08:46) Sulfa (Sulfonamide Antibiotics) Allergy (Verified 03/13/20 08:46) tetracycline [Tetracycline] Allergy (Verified 03/13/20 08:46) nitroglycerin [From Nitrostat] Adverse Reaction (Verified 03/13/20 08:46) Past Medical History - Social History Family History: Arthritis, CVA, DM, Hyperlipidemia, Hypertension, Malignancy, Thyroid Disfunction - Past Medical History Cardiac Medical History: Reports: Hx Hypercholesterolemia, Hx Hypertension Pulmonary Medical History: Reports: Hx Asthma Neurological Medical History: Reports: Hx Cerebrovascular Accident, Hx Migraine Endocrine Medical History: Reports: Hx Diabetes Mellitus Type 1, Hx Diabetes Mellitus Type 2. Denies: Hx Hyperthyroidism, Hx Hypothyroidism Renal/ Medical History: Denies: Hx Peritoneal Dialysis Malignancy Medical History: Reports: Hx Cervical Cancer GI Medical History: Reports: Hx Gastroesophageal Reflux Disease. Denies: Hx Cirrhosis, Hx Hepatitis Musculoskeletal Medical History: Reports Hx Arthritis, Reports Hx Fibromyalgia, Reports Hx Musculoskeletal Deformity, Reports Hx Musculoskeletal Trauma Psychiatric Medical History: Reports: Hx Anxiety, Hx Depression Traumatic Medical History: Reports: Hx Fractures - Facial fractures bilateral toes elbow and left knee Infectious Medical History: Denies: Hx Hepatitis Past Surgical History: Reports: Hx Abdominal Surgery - hernia, Hx Section - 2, Hx Cholecystectomy, Hx Herniorrhaphy, Hx Hysterectomy, Hx Orthopedic Surgery - bilateral toes and elbows left knee twice, Hx Tubal Ligation, Other - Ventral hernia and pseudocyst removal. Denies: Hx Appendectomy - Immunizations Immunizations up to date: Yes Hx Diphtheria, Pertussis, Tetanus Vaccination: Yes <VIJAY RHOADES - Last Filed: 06/10/20 18:08> - Social History Smoking Status: Unknown if Ever Smoked <JESS DELUCA IV - Last Filed: 06/17/20 08:56> Physical Exam - Vital signs Vitals: Temp Pulse Resp BP Pulse Ox 98.5 F 90 21 H 139/74 H 96 06/10/20 16:49 06/10/20 16:49 06/10/20 16:49 06/10/20 16:49 06/10/20 16:49 Course - Laboratory Results Result Diagrams: 06/10/20 17:26 06/10/20 17:26 <VERONAVIJAY - Last Filed: 06/10/20 18:08> - Laboratory Results Result Diagrams: 06/10/20 17:26 06/10/20 17:26 Critical Laboratory Results Reviewed: Yes Attending or Supervising Physician who Reviewed Labs: JESS DELUCA IV - Patient apparently presented with hypokalemia which Dr. Nick has treated the patient for - Radiology Results Critical Radiology Results Reviewed: No Critical Results Attending or Supervising Physician who Reviewed Radiology: JESS DELUCA IV <JESS DELUCA IV - Last Filed: 06/17/20 08:56> - Re-evaluation Re-evalutation: 06/10/20 17:08 Given the history and physical examination the patient was expedited to CT scan. NIH score that I calculate is a 5. Given the multiple presentations of very similar symptomatology, with frequent visits for this in the past, with 4 recent unremarkable MRIs of the brain, with my last note as recorded regarding discussion with the hospitalist, I do not believe that the patient is an approp riate TPA candidate given the 6 to 8% risk of serious intracerebral bleed at the patient's age. Given such frequent similar presentations, I do believe subarachnoid hemorrhage, intra cerebral mass/occupying lesion all to be unlikely. 06/10/20 18:08 Imaging as recorded. Patient's pain is slightly improved. No change in neurologic exam. I have spoken to the neurologist about the CTA reading. S imilar CTA reading with unremarkable MRI follow-up in December. She has asked that I order an MRA of the [place] without contrast and a repeat MRI of the head. I have also added a sedimentation rate and a CRP. (VIJAY RHOADES) 06/10/20 22:49 Results of MRI and MRA reviewed by this MD. There are no grossly obvious areas of vasculitis present on the MRIs but there is some motion artifact also. However the patient's ESR and CRP are both negative which seems to make a vasculitis less likely. Results of ED MSE discussed with patient. Patient informed about her low potassium, her grossly unremarkable MRI and MRA and her ESR and CRP which are within normal limits. Patient states that she does not have anything at home for nausea but she does have meclizine at home this MD offered to send the patient home with some Zofran ODT's and a prescription for some more. Patient was agreeable to this. Reviewing Dr. Nick's note, neurology stated that if nothing came back positive on the additional lab work or the MRI/MRA, patient could be discharged home with outpatient neurology follow-up in December. All questions were answered prior to discharge. Emergency signs and symptoms, reasons to return to the emergency department discussed with patient. (JESS DELUCA IV) - Vital Signs Vital signs: Temp Pulse Resp BP Pulse Ox 98.3 F 82 20 104/59 L 94 06/10/20 23:31 06/10/20 22:14 06/10/20 23:01 06/10/20 23:01 06/10/20 23:01 - Laboratory Results Laboratory Results Interpreted: 06/10/20 06/10/20 17:26 17:26 RDW 14.8 H Potassium 2.9 L* Carbon Dioxide 32 H Glucose 130 H Direct Bilirubin 0.5 H Discharge <VIJAY RHOADES - Last Filed: 06/10/20 18:08> <JESS DELUCA IV - Last Filed: 06/17/20 08:56> - Discharge Clinical Impression: Hypokalemia, Vertigo, Nausea Condition: Stable Disposition: HOME, SELF-CARE Additional Instructions: Return to the Emergency Department without delay if any worse. HOME CARE INSTRUCTIONS & INFORMATION: Thank you for choosing us for your medical needs. We hope you're satisfied with the care you received. After you leave, you must properly care for your problem and, at the same time, observe its progress. Any condition can change. Some illnesses can change rapidly over hours or days. If your condition worsens, return to the Emergency Department or see your physician promptly. ABOUT YOUR X-RAYS AND EKG'S: If you had an EKG or X-rays taken, they have been read by the Emergency Physician. The X-rays and EKG's will also be read by a Radiologist or Menu Planner within 24 hours. If discrepancies are noted, you will be notified by telephone. Please be certain the ED has a correct telephone number & address where you can be reached. Also, realize that some fractures or abnormalities do not show up on initial X-rays. If your symptoms continue, see your physician. ABOUT YOUR LABORATORY TEST: If you had laboratory tests, the results have been reviewed by the Emergency Physician. Some test results (for example cultures) may not be available for several days. You will be contacted if any test result shows you need additional treatment. Please be certain the ED has a correct telephone number and address where you can be reached. ABOUT YOUR MEDICATIONS: You will receive instructions on how to take your medicine on the prescription label you receive. Additional information may be provided by the Pharmacy. If you have questions afterwards, call the ED for clarification or further instructions. Some prescribed medications may cause drowsiness. Do not perform tasks such as driving a car or operating machinery without consulting your Pharmacist. If you feel you need a refill of pain medication, your condition will need re-evaluation. Please do not call for a refill of any medication. ABOUT YOUR SIGNATURE: Signature of this document acknowledges to followin. Understanding that you received emergency treatment and that you may be released before al medical problems are known or treated. Please be certain the ED has a correct phone number & address where you can be reached. 2. Acknowledgement that you will arrange for follow-up care as recommended. 3. Authorization for the Emergency Physician to provide information to your follow-up Physician in order to maximize your care. AT ANY TIME, IF YOUR SYMPTOMS CHANGE SIGNIFICANTLY OR WORSEN OR YOU DEVELOP NEW SYMPTOMS, RETURN TO THE EMERGENCY DEPARTMENT IMMEDIATELY FOR RE-EVALUATION. OUR GOAL IS TO PROVIDE EXCELLENT MEDICAL CARE! WE HOPE THAT WE HAVE MET YOUR EXPECTATIONS DURING YOUR EMERGENCY DEPARTMENT VISIT AND THAT YOU FEEL YOU HAVE RECEIVED EXCELLENT CARE! Hypokalemia You have an abnormally decreased level of serum potassium. Hypokalemia may cause weakness, fatigue, or heart rhythm abnormalities. Sometimes there are no symptoms at all. Usually, low serum potassium is due to taking diuretics (water pills). It can also be due to excessive vomiting or diarrhea. If no obvious cause is evident, further evaluation will be necessary. Treatment is usually oral potassium supplements. Take these exactly as prescribed. You may also want to select foods which are naturally high in potassium -- fruits (such as bananas, cantaloupe, grapes, oranges, prunes, tomatoes), fresh vegetables (potatoes, spinach, beans, peas), orange or tomato juice, tomato pasta sauce, milk, fish (halibut, tuna, salmon, katie) A follow-up blood test is usually performed to assure that the potassium is returning to normal. Call the physician if you suffer severe weakness, muscle twitching or cramping, palpitations (pounding or irregular heartbeat), or any other new or alarming symptoms. Prescriptions: Ondansetron [Zofran Odt 4 mg Tablet] 1 - 2 tab PO Q8HP PRN #15 tab.rapdis PRN Reason: For Nausea/Vomiting Referrals: KATERYNA GONSALEZ MD [Primary Care Provider] - Follow up as needed
--- NOTE | 2020-06-10 17:19 | RADIOLOGY REPORT (SQ) ---
EXAM DESCRIPTION: CT HEAD WITHOUT IMAGES COMPLETED DATE/TIME: 06/10/2020 5:02 pm REASON FOR STUDY: bed 18 stroke alert COMPARISON: 03/27/2020 TECHNIQUE: Axial images acquired through the brain without intravenous contrast. Images reviewed wi th bone, brain and subdural windows. Additional sagittal and coronal reconstructions were generated. Images stored on PACS. All CT scanners at this facility use dose modulation, iterative reconstruction, and/or weight based d osing when appropriate to reduce radiation dose to as low as reasonably achievable (ALARA). [facility]: Dose Right [facility]: CareDose [facility]: Dose Right [facility]: Teradose 4D [facility]: Smart [employer] RADIATION DOSE: CT Rad equipment meets quality standard of care and radiation dose reduction techniq ues were employed. CTDIvol: 53.2 mGy. DLP: 1017 mGy-cm. mGy. LIMITATIONS: None. FINDINGS: VENTRICLES: Normal size and contour. CEREBRUM: No masses. No hemorrhage. No midline shift. No evidence for acute infarction. Normal gra y/white matter differentiation. No areas of low density in the white matter. CEREBELLUM: No masses. No hemorrhage. No alteration of density. No evidence for acute infarction. EXTRAAXIAL SPACES: No fluid collections. No masses. ORBITS AND GLOBE: No intra- or extraconal masses. Normal contour of globe without masses. CALVARIUM: No fracture. PARANASAL SINUSES: No fluid or mucosal thickening. SOFT TISSUES: No mass or hematoma. OTHER: No other significant finding. IMPRESSION: NORMAL BRAIN CT WITHOUT CONTRAST. EVIDENCE OF ACUTE STROKE: NO. Pertinent findings on the imaging study reported as a CRITICAL RESULT to VIJAY RHOADES MD at17:12 on . Category of Critical Result: Stroke alert The findings were sent to the Radiology Results Communication Center at 17:12 on 06/10/2020 to be comm unicated to a licensed caregiver. COMMENT: Quality ID # 436: Final reports with documentation of one or more dose reduction techniques (e.g., Automated exposure control, adjustment of the mA and/or kV according to patient size, use of iterative reconstruction technique) TECHNICAL DOCUMENTATION: JOB ID: [id number] 2010 [employer]- All Rights Reserved Reading location - IP/workstation name: [email or web address]
--- NOTE | 2020-06-10 17:27 | RADIOLOGY REPORT (SQ) ---
EXAM DESCRIPTION: CTA NECK IMAGES COMPLETED DATE/TIME: 06/10/2020 5:08 pm REASON FOR STUDY: 18; code stroke COMPARISON: 5 previous CTs of the neck TECHNIQUE: Axial dynamic scanning technique with dynamic contrast enhancement through the extra-overhead crane technician nial carotid and vertebral arteries. Multiplanar reconstruction. 3-D MIPS and Volume-rendered imag es acquired at the workstation and saved to PACS. Images are reviewed in soft tissue, bone, lung w indows. All CT scanners at this facility use dose modulation, iterative reconstruction, and/or weight based d osing when appropriate to reduce radiation dose to as low as reasonably achievable (ALARA). [facility]: Dose Right [facility]: CareDose [facility]: Dose Right [facility]: Teradose 4D [facility]: Smart [employer] CONTRAST TYPE AND DOSE: Not recorded RENAL FUNCTION: Not performed due to status the patient LIMITATIONS: None. FINDINGS: AORTIC ARCH: Normal three-vessel origin. Bilateral subclavian arteries are patent. No d issection. RIGHT CAROTIDS: Patent common, internal and external carotid arteries without suggestion of significa nt stenosis or irregular plaque. No dissection. Mild atherosclerotic change at the bifurcation of t he common carotid artery less than 50% stenosis. RIGHT VERTEBRAL: Patent. No dissection. LEFT CAROTIDS: Patent common, internal and external carotid arteries without suggestion of significan t stenosis or irregular plaque. No dissection. LEFT VERTEBRAL: Patent. No dissection. OTHER: No other significant finding. OTHER: 3-D reconstructions confirm findings. IMPRESSION: No significant intra vascular stenosis. No dissection. COMMENT: Quality ID #[id number]: Measurements of distal internal carotid diameter were used as the denomina tor for stenosis measurement. TECHNICAL DOCUMENTATION: JOB ID: [id number] Quality ID # [id number]: Final reports with documentation of one or more dose reduction techniques (e.g., Au tomated exposure control, adjustment of the mA and/or kV according to patient size, use of iterative reconstruction technique) 2010 [employer]- All Rights Reserved Reading location - IP/workstation name: [email or web address]
--- NOTE | 2020-06-10 17:28 | RADIOLOGY REPORT (SQ) ---
EXAM DESCRIPTION: CHEST SINGLE VIEW IMAGES COMPLETED DATE/TIME: 06/10/2020 5:11 pm REASON FOR STUDY: bed 18 stroke alert COMPARISON: 03/27/2020 EXAM PARAMETERS: NUMBER OF VIEWS: One view. TECHNIQUE: Single frontal radiographic view of the chest acquired. RADIATION DOSE: NA LIMITATIONS: None. FINDINGS: LUNGS AND PLEURA: Low lung volumes. Perihilar atelectasis. MEDIASTINUM AND HILAR STRUCTURES: No masses. Contour normal. HEART AND VASCULAR STRUCTURES: Heart normal in size. Normal vasculature. BONES: No acute findings. HARDWARE: None in the chest. OTHER: No other significant finding. IMPRESSION: Low lung volumes with perihilar atelectasis. TECHNICAL DOCUMENTATION: JOB ID: [id number] 2010 [employer]- All Rights Reserved Reading location - IP/workstation name: [email or web address]
--- NOTE | 2020-06-10 17:33 | RADIOLOGY REPORT (SQ) ---
EXAM DESCRIPTION: CTA HEAD IMAGES COMPLETED DATE/TIME: 06/10/2020 5:08 pm REASON FOR STUDY: 17; code stroke COMPARISON: None. TECHNIQUE: Post IV contrast scanning, thin section axial imaging through the brain to evaluate the a rterial structures. Source and MIP images are saved and reviewed on PACS. Advanced 3D imaging as volume-rendering, MIPs, SSD performed? yes All CT scanners at this facility use dose modulation, iterative reconstruction, and/or weight based d osing when appropriate to reduce radiation dose to as low as reasonably achievable (ALARA). [facility]: Dose Right [facility]: CareDose [facility]: Dose Right [facility]: Teradose 4D [facility]: Smart [employer] CONTRAST TYPE AND DOSE: Not recorded RENAL FUNCTION: Not performed per ARMANDO request LIMITATIONS: None. FINDINGS: [place]: Vessels are patent in the [place] however. Attenuated compare wit h the previous study. There is persistent stippling of the A1 segment on the right. No focal occlus ion. POSTERIOR CIRCULATION: The distal vertebral arteries are patent as is the basilar artery. No aneurysm . Somewhat attenuated when compared with previous study. BRAIN: No gross enhancing lesions as visualized. The superior cerebral hemispheres are not included in the field of view. BONES: Intact as visualized. SINUSES: No fluid or mucosal thickening. OTHER: No other significant finding. IMPRESSION: Persistent stippling of the A1 segment on the right. Generally vessels are attenuated c ompare with the previous study. Strongly suspicious for vasculitis. No occlusion. TECHNICAL DOCUMENTATION: JOB ID: [id number] Quality ID # [id number]: Final reports with documentation of one or more dose reduction techniques (e.g., Au tomated exposure control, adjustment of the mA and/or kV according to patient size, use of iterative reconstruction technique) 2010 [employer]- All Rights Reserved Reading location - IP/workstation name: [email or web address]
[2020-06-10 17:41] LABS: BASOPHILS % (AUTO) 0.9 % (0-2); EOSINOPHILS % (AUTO) 2.9 % (0-6); HEMATOCRIT 39.9 % (36.0-47.0); HEMOGLOBIN 13.7 g/dL (12.0-15.5); LYMPHOCYTES % (AUTO) 23.4 % (13-45); MEAN CORPUSCULAR HEMOGLOBIN 27.5 pg (27.0-33.4); MEAN CORPUSCULAR HGB CONC 34.4 g/dL (32.0-36.0); MEAN CORPUSCULAR VOLUME 80 fl (80-97); MONOCYTES % (AUTO) 9.7 % (3-13); PLATELET COUNT 235 10^3/uL (150-450); RED CELL DISTRIBUTION WIDTH 14.8 % (11.5-14.0); SEGMENTED NEUTROPHILS % (AUTO) 63.1 % (42-78); WHITE BLOOD COUNT 6.2 10^3/uL (4.0-10.5)
[2020-06-10 17:42] LABS: ABSOLUTE BASOPHILS # (AUTO) 0.1 10^3/uL (0.0-0.2); ABSOLUTE EOSINOPHILS # (AUTO) 0.2 10^3/uL (0.0-0.6); ABSOLUTE LYMPHOCYTES (AUTO) 1.5 10^3/uL (0.5-4.7); ABSOLUTE MONOCYTES (AUTO) 0.6 10^3/uL (0.1-1.4); ABSOLUTE NEUT (AUTO) 3.9 10^3/uL (1.7-8.2); INTERNATIONAL RATION (INR) 0.92; PROTHROMBIN TIME 12.6 SEC (11.4-15.4); TOTAL CELLS COUNTED % (AUTO) 100 %
[2020-06-10 17:43] LABS: PARTIAL THROMBOPLASTIN TIME 28.5 SEC (23.5-35.8)
[2020-06-10] MEDS ORDERED: MORPHINE SULFATE 10 MG/ML INJ IV ONE (18:00)
[2020-06-10] MEDS ORDERED: ONDANSETRON HCL INJ/PF 4 MG/2 ML SDV IV ONE ×2 (18:00→22:22)
[2020-06-10 18:06] LABS: ALBUMIN 4.3 g/dL (3.5-5.0); ALKALINE PHOSPHATASE 72 U/L (38-126); ANION GAP 7 (5-19); ASPARTATE AMINO TRANSFERASE 27 U/L (14-36); BILIRUBIN,DIRECT 0.5 mg/dL (0.0-0.4); BILIRUBIN,TOTAL 0.7 mg/dL (0.2-1.3); BLOOD UREA NITROGEN 12 mg/dL (7-20); CARBON DIOXIDE 32 mmol/L (22-30); CHLORIDE 98 mmol/L (98-107); CREATINE KINASE 49 U/L (30-135); GLUCOSE 130 mg/dL (75-110); TOTAL PROTEIN 6.9 g/dL (6.3-8.2)
[2020-06-10 18:09] LABS: POTASSIUM 2.9 mmol/L (3.6-5.0)
[2020-06-10 18:12] LABS: CREATINE KINASE MB 0.92 ng/mL (<4.55); TROPONIN I < 0.012 ng/mL
[2020-06-10] MEDS ORDERED: POTASSI CL 20 MEQ/50 ML RIDER 20 MEQ/50 ML RTUPB IV ONE (18:22)
[2020-06-10] MEDS ORDERED: POTASSIUM CHLORIDE 10 MEQ TABLET.ER PO ONE (18:22)
[2020-06-10] MEDS ORDERED: LORAZEPAM INJ 2 MG/1 ML VIAL IV ONE (18:48)
--- NOTE | 2020-06-10 20:38 | RADIOLOGY REPORT (SQ) ---
EXAM DESCRIPTION: MR BRAIN WITHOUT IV CONTRAST, MR BRAIN ANGIOGRAPHY WITHOUT IV CONTRAST COMPLETED DATE/TME: 06/10/2020 20:10 CLINICAL HISTORY: 60 years, Female, 18; possible vasculitus EXAM DESCRIPTION: MRI HEAD WITHOUT (accession [id number]), MRA HEAD WITHOUT (accession [id number]) CLINICAL HISTORY: 17; possible vasculitus COMPARISON: None TECHNIQUE: Multiplanar images of the brain were obtained without the administration of intravenous contrast Flow sensitive imaging obtained . MIP reformatted images obtained. NASCET criteria utilized for the evaluation of any stenotic lesions. FINDINGS: There is severe patient motion on multiple sequences. This renders the MRA essentially nondiagnostic. There is no definite evidence of acute mass, mass effect, midline shift or hemorrhage. No focal abnormal extra-axial fluid collection is seen. The ventricles, basal cisterns and extra-axial fluid spaces are normal in size and configuration. The vessels of the [place] demonstrate no definite evidence of flow-limiting stenosis, vascular malformation, or aneurysm. IMPRESSION: Very limited exams. No definite acute abnormalities.
--- NOTE | 2020-06-10 20:38 | RADIOLOGY REPORT (SQ) ---
EXAM DESCRIPTION: MR BRAIN WITHOUT IV CONTRAST, MR BRAIN ANGIOGRAPHY WITHOUT IV CONTRAST COMPLETED DATE/TME: 06/10/2020 20:10 CLINICAL HISTORY: 60 years, Female, 18; possible vasculitus EXAM DESCRIPTION: MRI HEAD WITHOUT (accession [id number]), MRA HEAD WITHOUT (accession [id number]) CLINICAL HISTORY: 17; possible vasculitus COMPARISON: None TECHNIQUE: Multiplanar images of the brain were obtained without the administration of intravenous contrast Flow sensitive imaging obtained . MIP reformatted images obtained. NASCET criteria utilized for the evaluation of any stenotic lesions. FINDINGS: There is severe patient motion on multiple sequences. This renders the MRA essentially nondiagnostic. There is no definite evidence of acute mass, mass effect, midline shift or hemorrhage. No focal abnormal extra-axial fluid collection is seen. The ventricles, basal cisterns and extra-axial fluid spaces are normal in size and configuration. The vessels of the [place] demonstrate no definite evidence of flow-limiting stenosis, vascular malformation, or aneurysm. IMPRESSION: Very limited exams. No definite acute abnormalities.
--- NOTE | 2020-06-10 22:40 | EKG REPORT ---
SEVERITY:- ABNORMAL ECG - SINUS RHYTHM PROBABLE INFERIOR INFARCT, AGE INDETERMINATE BORDERLINE R WAVE PROGRESSION, ANTERIOR LEADS : Confirmed by: Jennifer Burgess 10-Jun-2020 22:39:39
[2020-06-10] MEDS ORDERED: ONDANSETRON ODT 4 MG TAB (6 TAB/ER DISP) PO PRN (22:59)
[2020-06-10 23:31] VITALS: BP 104/59
== END 2020-06-10 23:31 | disposition home or self-care (01) ==
LOC: ER 16:49
DX: E87.6 Hypokalemia (principal); R42 Dizziness and giddiness; R11.0 Nausea; R51.9 Headache, unspecified; R29.810 Facial weakness; R53.1 Weakness; E78.00 Pure hypercholesterolemia, unspecified; I10 Essential (primary) hypertension; E11.9 Type 2 diabetes mellitus without complications; Z88.3 Allergy status to other anti-infective agents; Z88.0 Allergy status to penicillin; Z91.040 Latex allergy status; Z88.2 Allergy status to sulfonamides; Z86.73 Personal history of transient ischemic attack (TIA), and cerebral infarction without residual deficits; Z90.49 Acquired absence of other specified parts of digestive tract
CPT/HCPCS: 93005; 96376; 99285; 96361; 96374; 96375; 36415; 82553; 82550; 85025; 85652; 85610; 85730; 86140; 80053; 84484; 70551; 70544; 71045; 70450; 70496; 70498; 93010; J2270; J2060; J2405; J3480